=== PATIENT | female | born 1965 | race Two or more races ===

== ENCOUNTER 2020-04-05 15:39 | Emergency (ER) | payer MEDICAID, SELFPAY ==
[2020-04-05 15:55] VITALS: BP 113/54; PULSE 89; RESP 18; TEMP 37; O2SAT 96; BMI 18.6
--- NOTE | 2020-04-05 17:06 | CT_ITS ---
EXAMINATION: CT abdomen pelvis w con CLINICAL INFORMATION: Reason for Exam difusse abdominal pain COMPARISON: No prior CT available for comparison. TECHNIQUE: Multidetector volumetric imaging was performed from the superior aspect of the liver through the pubic symphysis 85 mL Omnipaque 350 injected Sagittal and coronal reformatted images were obtained on the technologist's workstation. This CT examination was performed using dose optimization techniques as appropriate, variously including the following: *Automated exposure control *Adjustment of mA and/or kV according to patient size (this includes techniques or standardized protocols for targeted exams where dose is matched to indication/reason for exam; i.e. extremities or head) *Use of iterative reconstruction technique DLP: 307 mGy-cm FINDINGS: LOWER THORAX: There are linear opacities likely platelike atelectasis at right and left lung base. HEPATOBILIARY: Hypodense area in the liver adjacent to the falciform ligament, the location is common for focal fat deposition. No focal hepatic lesions. No biliary ductal dilatation. GALLBLADDER: Gallbladder unremarkable. SPLEEN: Spleen is normal in size. PANCREAS: No focal mass or ductal dilatation. STOMACH AND GASTROINTESTINAL TRACT: Stomach is grossly unremarkable. There is no bowel distention or thickening. No CT evidence of appendicitis. ADRENALS: No adrenal nodules. KIDNEYS/URETERS: Simple cyst upper pole left kidney measure about 1.2 cm, simple cyst middle pole left kidney measures 1.1 cm. There are no kidney stones or hydronephrosis. Perinephric fat are clear. URINARY BLADDER: Partially decompressed. PELVIC VISCERA: Unremarkable PERITONEUM: No free air or fluid. LYMPH NODES: No lymphadenopathy. VASCULAR:Abdominal aorta normal in size, no aneurysm found. BONES, ABDOMINAL WALL AND SOFT TISSUES: Age-appropriate changes of the spine and skeletal system, no destructive osteolytic or osteosclerotic bone lesion found CT/CT abdomen pelvis w con IMPRESSION: No CT evidence of acute intra-abdominal process to explain patient's pain symptoms. There are 2 simple cysts in the left kidney Bosniak class I. Hypodense area in the liver adjacent to the falciform ligament the location is common for focal fat deposition. Linear opacities at right and left lung base, likely platelike atelectasis.
--- NOTE | 2020-04-05 17:13 | ED_ITS ---
HPI - Abdominal Pain General Chief Complaint: Abdominal Pain Stated Complaint: abd pain Time Seen by Provider: 04/05/20 16:56 Source: patient Mode of arrival: ambulatory Limitations: no limitations History of Present Illness HPI narrative: patient comes emergency room complaining of diffuse abdominal pain that started 1 week ago. Patient also complaining of nausea without vomiting, and diffuse diarrhea. Patient states she has been drinking a magnesium hydroxide solution to help with the pain. patient states the pain is constant, states she has lost 7 lb in 1 week, has p.o. intolerance MD elicited complaint: abdominal pain Related Data Allergies Allergy/AdvReac Type Severity Reaction Status Date / Time tramadol [TRAMADOL] Allergy Unknown NAUSEA & Verified 04/05/20 15:55 VOMITING tramadol Allergy Unknown stomach Uncoded 07/06/19 00:00 upset Review of Systems Review of Systems Constitutional : complaining of 7 lb weight loss, No Fever, No Chills, No Night Sweats, No Fatigue, No Malaise ENT/Mouth : No Hearing loss, No Ear Pain, No Nasal Congestion, No Sinus Pain, No Hoarseness, No sore throat, No Rhinorrhea, No Swallowing Difficulty Eyes: No Eye Pain, No Swelling, No Redness, No Foreign Body, No Discharge, No Vision Changes Cardiovascular : No Chest Pain, No SOB, No Dyspnea on Exertion, No Orthopnea, No Edema, No Palpitations Respiratory : No Cough, No Sputum, No Wheezing, No Smoke Exposure, No Dyspnea Gastrointestinal : patient complaining of nausea with no vomiting, diarrhea, diffuse abdominal pain Genitourinary : no irregular bleeding, No Dysuria, No Urinary Frequency, No Hematuria, No Urinary Incontinence, No Urgency, No Flank Pain, No Urinary Flow Changes, No Hesitancy Musculoskeletal : No joint pain, No Myalgias, No Joint Swelling Skin : No Skin Lesions, No rash Neuro : No Weakness, No Numbness, No Paresthesias, No Loss of Consciousness, No Dizziness, No Headache Psych : No Anxiety/Panic, No Depression, No SI/HI/AH/VH, No Social Issues, Heme/Lymph: No Bruising, No Bleeding,No Lymphadenopathy Endocrine : No Polyuria, No Polydipsia, No Temperature Intolerance Physical Exam Vital Signs: Vital Signs: Last Vital Signs Temp 98.6 F 04/05/20 15:55 Pulse 89 04/05/20 15:55 Resp 16 04/05/20 18:41 BP 113/54 L 04/05/20 15:55 Pulse Ox 96 04/05/20 15:55 Body Mass Index 18.6 Appearance: Alert. Oriented X3. No acute distress. Eyes: Pupils equal, round and reactive to light. ENT: Pharynx normal. Neck: Normal inspection. Neck supple. No lymph nodes noted. No crepitus CVS: Normal heart rate and rhythm. Pulses normal. Normal S1 and S2 Respiratory: No respiratory distress. Breath sounds normal. No Wheezing. No rales Abdomen: Soft , diffuse abdominal tenderness to palpation, seems to be worse in left lower quadrant Skin: Skin warm and dry. Normal skin color. Normal skin turgor. Extremities: No lower extremity edema. No lower extremity edema. No Lacerations. No Rash Neuro: Oriented X 3. No motor deficit. No sensory deficit. Moving all extermities. No slurred speech. Course Course Course Narrative: I discussed the labs and imaging with the patient, patient states that she feels better. Patient likely having a viral illness causing the nausea vomiting diarrhea. Patient asked to discontinue taking magnesium hydroxide which causes diarrhea MDM - Abdominal Pain Lab Data Result diagrams: 04/05/20 17:16 04/05/20 17:16 Labs: Lab Results 04/05/20 04/05/20 Range/Units 17:16 17:16 WBC 6.8 (4.8-10.8) X10*3/uL RBC 3.82 L (4.20-5.50) X10*6/uL Hgb 12.4 (12.0-16.0) g/dl Hct 36.6 L (37-47) % MCV 95.8 (80-98) fL MCH 32.5 (27.0-33.0) pg MCHC 33.9 (31.0-35.0) g/dl RDW 12.8 (11.0-16.0) % Plt Count 324 (160-400) X10*3/uL MPV 9.6 (9.4-12.3) fL Immature Gran % (Auto) 0.1 (0.0-0.4) % Neut % (Auto) 56.8 (45-73) % Lymph % (Auto) 32.7 (20-40) % [place] % (Auto) 7.0 (2-11) % Eos % (Auto) 2.7 (0-4) % Baso % (Auto) 0.7 (0-2) % Lymph # (Auto) 2.2 (1.2-4.9) X10*3/uL Oxford # (Auto) 0.5 (0.1-1.2) X10*3/uL Eos # (Auto) 0.2 (0.0-0.4) X10*3/uL Baso # (Auto) 0.1 (0.0-0.2) X10*3/uL Abs Immat Gran (auto) 0.01 (0.00-0.03) X10*3/uL Absolute Neuts (auto) 3.8 (2.0-8.3) X10*3/uL Absolute Nucleated RBC 0.000 (0.0-0.012) X10*3/uL Nucleated RBC % (auto) 0.0 (0.0-0.2) /100WBC Sodium 140 (135-145) mmol/L Potassium 4.2 (3.3-5.1) mmol/l Chloride 102 (96-108) mmol/L Carbon Dioxide 30 H (22-29) mmol/L Anion Gap 12 (12-20) BUN 15 (9-16) mg/dL Creatinine 0.68 (0.5-1.4) mg/dL Estim Creat Clear Calc 71.9 Estimated GFR > 60 Random Glucose 90 (60-115) mg/dL Calcium 8.9 (8.4-10.2) mg/dL Total Bilirubin 0.3 (0.0-1.0) mg/dL Direct Bilirubin < 0.2 (0.0-0.5) mg/dL AST 19 (5-31) U/L ALT 16 (0-31) U/L Alkaline Phosphatase 77 (39-117) U/L Total Protein 6.6 (6.5-8.0) g/dL Albumin 4.2 (3.5-5.0) g/dL Lipase 24 (8-78) U/L Imaging Data CT scan - abdomen: Radiologist's impression: LOWER THORAX: There are linear opacities likely platelike atelectasis at right and left lung base. HEPATOBILIARY: Hypodense area in the liver adjacent to the falciform ligament, the location is common for focal fat deposition. No focal hepatic lesions. No biliary ductal dilatation. GALLBLADDER: Gallbladder unremarkable. SPLEEN: Spleen is normal in size. PANCREAS: No focal mass or ductal dilatation. STOMACH AND GASTROINTESTINAL TRACT: Stomach is grossly unremarkable. There is no bowel distention or thickening. No CT evidence of appendicitis. ADRENALS: No adrenal nodules. KIDNEYS/URETERS: Simple cyst upper pole left kidney measure about 1.2 cm, simple cyst middle pole left kidney measures 1.1 cm. There are no kidney stones or hydronephrosis. Perinephric fat are clear. URINARY BLADDER: Partially decompressed. PELVIC VISCERA: Unremarkable PERITONEUM: No free air or fluid. LYMPH NODES: No lymphadenopathy. VASCULAR:Abdominal aorta normal in size, no aneurysm found. BONES, ABDOMINAL WALL AND SOFT TISSUES: Age-appropriate changes of the spine and skeletal system, no destructive osteolytic or osteosclerotic bone lesion found CT/CT abdomen pelvis w con IMPRESSION: No CT evidence of acute intra-abdominal process to explain patient's pain symptoms. There are 2 simple cysts in the left kidney Bosniak class I. Hypodense area in the liver adjacent to the falciform ligament the location is common for focal fat deposition. Linear opacities at right and left lung base, likely platelike atelectasis. Discharge Plan Discharge Clinical Impression: Abdominal pain Qualifiers: Abdominal location: generalized Qualified Code(s): R10.84 - Generalized abdominal pain Patient Disposition: Home, Self-Care Instructions: Abdominal Pain (ED) Additional Instructions: please stop taking the [id number] medication that contains magnesium hydroxide as it causes diarrhea. Please follow-up with your primary care physician tomorrow. If you have any worsening or new symptoms, please return to the emergency room or call [address] [place] [address] Past Medical History Medical History (Updated 04/05/20 @ 20:05 by Jaycee Carvalho MD) Abdominal adhesions Fibromyalgia Lupus Migraines Osteoarthritis Surgical History (Updated 04/05/20 @ 17:21 by Jaycee Carvalho MD) H/O: hysterectomy History of appendectomy Social History Social History Alcohol intake: never Smoked in Last 30 Days: No Use of substances other than those prescribed or required for medical reasons: No Advance Directives: No Advance Directives Information Provided: No
[2020-04-05] MEDS: 0.9 % Sodium Chloride 1,000 ML 999 ML IVCONT (17:16)
[2020-04-05 17:19] VITALS: RESP 16
[2020-04-05 17:22] LABS: Basophils Absolute Auto 0.1 X10*3/uL (0.0-0.2); Basophils Percent Auto 0.7 % (0-2); Eosinophils Absolute Auto 0.2 X10*3/uL (0.0-0.4); Eosinophils Percent Auto 2.7 % (0-4); Hematocrit 36.6 % (37-47); Hemoglobin 12.4 g/dl (12.0-16.0); Imm Gran Abs Auto 0.01 X10*3/uL (0.00-0.03); Imm Gran Pct Auto 0.1 % (0.0-0.4); Lymphocytes Absolute Auto 2.2 X10*3/uL (1.2-4.9); Lymphocytes Percent Auto 32.7 % (20-40); MANUAL DIFF FLAG NO; Mean Corpuscular HGB Conc 33.9 g/dl (31.0-35.0); Mean Corpuscular Hemoglobin 32.5 pg (27.0-33.0); Mean Corpuscular Volume 95.8 fL (80-98); Mean Platelet Volume 9.6 fL (9.4-12.3); Monocytes Absolute Auto 0.5 X10*3/uL (0.1-1.2); Neutrophils Absolute Auto 3.8 X10*3/uL (2.0-8.3); Neutrophils Percent Auto 56.8 % (45-73); Platelet Count 324 X10*3/uL (160-400); Red Blood Count 3.82 X10*6/uL (4.20-5.50); Red Cell Distribution Width 12.8 % (11.0-16.0); White Blood Count 6.8 X10*3/uL (4.8-10.8)
[2020-04-05] MEDS: Morphine Sulfate 4 MG/ML CARTRIDGE IVPUSH (17:29)
[2020-04-05] MEDS: ondansetron HCL 4 MG/2 ML VIAL IVPUSH (17:30)
[2020-04-05 17:48] LABS: Alanine Aminotransferase 16 U/L (0-31); Albumin Level 4.2 g/dL (3.5-5.0); Alkaline Phosphatase 77 U/L (39-117); Anion Gap 12 (12-20); Aspartate Amino Transferase 19 U/L (5-31); Bilirubin Direct < 0.2 mg/dL (0.0-0.5); Bilirubin Total 0.3 mg/dL (0.0-1.0); Blood Urea Nitrogen 15 mg/dL (9-16); Calcium 8.9 mg/dL (8.4-10.2); Carbon Dioxide 30 mmol/L (22-29); Chloride 102 mmol/L (96-108); Creatinine Clr Calc Pharmacy 71.9; Estimated Glomerular Filt Rate > 60; Glucose Random 90 mg/dL (60-115); Lipase 24 U/L (8-78); Potassium 4.2 mmol/l (3.3-5.1); Sodium 140 mmol/L (135-145); Total Protein 6.6 g/dL (6.5-8.0)
[2020-04-05 18:41] VITALS: RESP 16
[2020-04-05] MEDS: iohexoL 350 MG/ML 100 ML INFUS..BTL IV (19:14)
[2020-04-05 20:00] VITALS: BP 111/61; PULSE 73; RESP 18; TEMP 36.8; O2SAT 98
--- NOTE | 2020-04-05 20:25 | PC.NURSE ---
dr camp states ok for discharge no urine needed.
== END 2020-04-05 20:25 | disposition home or self-care (01) ==
PROVIDERS: Emergency Provider Emergency Medicine; PCP Internal Medicine
DX: R10.84 Generalized abdominal pain (principal); R11.0 Nausea
CPT/HCPCS: 36415; 74177; 80048; 80076; 83690; 85025; 96361; 96374; 96375; 99284; J2270; J2405; Q9967

== ENCOUNTER → 2020-04-30 11:32 | Outpatient (BNVA) | payer MEDICAID, SELFPAY | PROVIDERS: PCP Internal Medicine; Referring Provider Internal Medicine; Visit Provider Internal Medicine | DX: Z76.89 Persons encountering health services in other specified circumstances (principal) ==

== ENCOUNTER → 2020-06-09 13:26 | Outpatient (BNVA) | payer MEDICAID, SELFPAY | PROVIDERS: PCP Internal Medicine; Visit Provider Physician Assistant ==

== ENCOUNTER 2020-07-14 08:48 | Day surgery (SDC) | payer MEDICAID, SELFPAY ==
[2020-07-09 12:34] VITALS: BMI 19.8
--- NOTE | 2020-07-14 09:12 | HO.ANESPROP2 ---
FORMERLY [facility], [facility] Active Problems Active Problems: All Active Problems (Updated 07/09/20 @ 12:33 by Mary Kay Elizalde) Acid reflux (Acute) Chronic constipation (Acute) Encounter for screening colonoscopy (Acute) Vitamin D deficiency (Acute) Osteoporosis (Acute) Past Medical History Medical History Abdominal adhesions Fibromyalgia Lupus Migraines Osteoarthritis Osteoporosis Vitamin D deficiency Family History Family History Father No problems noted. Mother No problems noted. Surgical History Surgical History H/O elbow surgery History of hysterectomy with oophorectomy History of removal of ovarian cyst Hx of appendectomy Hx of tonsillectomy Social History Social History Alcohol intake: never Smoking Status: Current every day smoker Tobacco Type: Cigarette Packs Per Day: 1 Cigarettes Per Day: 20 Years Smoked: 23 Use of substances other than those prescribed or required for medical reasons: No Advance Directives: No Advance Directives Information Provided: No Advance Directives on File: No Meds Allergies Allergy/AdvReac Type Severity Reaction Status Date / Time tramadol [TRAMADOL] Allergy Unknown NAUSEA & Verified 07/09/20 12:23 VOMITING Home Medications Medication Instructions Recorded Confirmed Last Taken Type acetaminophen 500 mg capsule 500 mg PO Q6H PRN 04/30/20 07/09/20 Unknown History albuterol sulfate 90 mcg/actuation 2 puff INHALATION Q4-6H PRN 04/30/20 07/09/20 Unknown History aerosol inhaler amitriptyline 25 mg tablet 25 mg PO BEDTIME 04/30/20 07/09/20 Unknown History bupropion HCl 150 mg 24 hr tablet, 150 mg PO QAM 04/30/20 07/09/20 Unknown History extended release cholecalciferol (vitamin D3) 50 50 mcg PO DAILY 04/30/20 07/09/20 Unknown History mcg (2,000 unit) capsule docusate sodium 100 mg capsule 100 mg PO BID PRN 04/30/20 06/09/20 Unknown History duloxetine 60 mg capsule,delayed 60 mg PO DAILY 04/30/20 07/09/20 Unknown History release estradiol 1 g VAGINAL DAILY 04/30/20 07/09/20 Unknown History fluticasone propionate 220 1 puff INHALATION BID 04/30/20 07/09/20 Unknown History mcg/actuation HFA aerosol inhaler ibuprofen 800 mg tablet 800 mg PO TID PRN 04/30/20 07/09/20 Unknown History lidocaine 5 % topical patch 1 patch TOPICAL DAILY 04/30/20 06/09/20 Unknown History nicotine 10 mg inhalation cartridge 1 inh INHALATION 6XD PRN ea 04/30/20 06/09/20 Unknown History nystatin 100,000 unit/mL oral 4 ml BUCCAL DAILY ml 04/30/20 06/09/20 Unknown History suspension omeprazole 20 mg tablet,delayed 20 mg PO DAILY 04/30/20 07/14/20 07/14/20 07:40 History release 20 mg ondansetron HCl 4 mg tablet 8 mg PO BID tab 04/30/20 06/09/20 Unknown History sennosides 8.6 mg tablet 17.2 mg PO BEDTIME tab 04/30/20 06/09/20 Unknown History Exam Exam Date and Time: July 14, 2020 0912 Height,Weight and Vital Signs: Height 5 ft 3 in Weight 50.802 kg Airway Mallampati Class: I TM Dist: >3cm Neck ROM: Full Loose/Missing/Broken Teeth: No Heart: RRR Lungs: CTA Assessment and Plan Assessment Anesthesia Assessment: Anesthesia Plan Discussed and Chart Reviewed Final Anesthetic Review NPO: Yes ASA Class: II Final Preanesthetic Review: Meds/Allgs Chart Reviewed, Consent Obtained/Reviewed and Anes Risks/Benef Reviewed Patient Risk: Low Procedure Risk: Intermediate Anesthetic Plan Anesthetic Plan: MAC: Disposition: Standard PACU
--- NOTE | 2020-07-14 09:50 | W.PM.OPN ---
Operative Note Operative Note Date of Service: 07/14/20 Narrative: Pre-op diagnosis: Colon cancer screening, constipation, GERD, intermittent nausea Post-op diagnosis: other (Gastritis, colon polyp, diverticulosis, hemorrhoids) Procedure: FLEXIBLE TRANSORAL UPPER GASTROINTESTINAL ENDOSCOPY WITH BIOPSIES AND COLONOSCOPY TILL CECUM WITH BIOPSIES UPPER ENDOSCOPY Consent: Indications for the procedure and potential complications of bleeding, perforation, reaction to medications and missed diagnosis were discussed with the patient and informed consent was obtained. Instrument: Olympus GIF H 190 mid size upper endoscope Monitoring: Vital signs and clinical assessment, continuous EKG monitoring, Pulse oximetry, Carbon Dioxide monitoring and blood pressure monitoring were done throughout the procedure. Procedure: The patient was placed in the left lateral decubitis position and pre-procedure medications were administered and a bite block was placed. The endoscope was inserted into the mouth and advanced under direct vision to the third part of duodenum. A careful inspection was made as the upper endoscope was withdrawn including a retroflexed examination of the proximal stomach; Findings and interventions are described below. Findings: Larynx: Normal Esophagus: GE junction at 35 cms. Focal esophagitis at GE junction. Stomach: Mild gastric erythema. Biopsies were obtained. Grade 2 flap valve on retroflexed examination of the cardia. Duodenum: Normal bulb and descending duodenum Intervention: Biopsies as noted above COLONOSCOPY PROCEDURE NOTE Consent: Indications for the procedure and potential complications of bleeding, perforation, reaction to medications and missed diagnosis were discussed with the patient and informed consent was obtained. Instrument: Olympus PCF H 190 L variable stiffness pediatric colonoscope Monitoring: Vital signs and clinical assessment, intermittent blood pressure monitoring, continuous EKG monitoring, Pulse oximetry and Carbon Dioxide monitoring were done throughout the procedure. Colon withdrawl time was 15 minutes. Procedure: The patient was placed in the left lateral decubitis position and pre-procedure medications were administered. After a digital rectal examination of the ano-rectum, the video colonoscope was inserted into the rectum and advanced through the colon to the cecum. The colonoscope was slowly withdrawn in a retrograde panoramic fashion and the colon mucosa was carefully examined including a retroflexed view of the rectum. Findings and interventions are described below. Procedure Difficulty: Colon was long, redundant and tortuous and there was loop formation, no maneuvers were required. Findings: Terminal Ileum: Not evaluated Cecum: Friable mucosa in the cecum and right colon - random biopsies were obtained Ascending Colon: Friable mucosa in the cecum and right colon - random biopsies were obtained Transverse Colon: Normal Descending Colon: Normal Sigmoid Colon: A 3-4 mm diminutive appearing polyp removed with a cold biopsy Rectum: Normal Ano-rectum: Moderate internal hemorrhoids Colon preparation: Fair despite copious irrigation Impression and Post Procedure Diagnosis: Endoscopy Findings: ESOPHAGUS: Focxal esophagitis at GE junction. STOMACH: Gastritis Colonoscopy Findings: One small diminutive appearing polyp removed Random biopsies were obtained from the right colon. Moderate hemorrhoids on retroflexed exam. Plan: Await pathology results Patient has an appointment on 08/04/20 in the GI Clinic with STEPHANIE Ledesma. Repeat Colonoscopy in 5 years if polyp is adenomatous and due to fair prep. Above findings were reviewed with the patient and colon polyps and Gastritis handouts were given in the discharge area Surgeon: Courtney Stanley MD Anesthesia: MAC (Dr Leavitt) Estimated blood loss (mL): 0 Pathology: other (A. GASTRIC ANTRUM R/O H. PYLORI B. GASTRIC BODY BXS, R/O GASTRITIS C. RANDOM RIGHT COLON BXS D. SIGMOID COLON POLYP) Condition: stable Disposition: PACU
--- NOTE | 2020-07-14 09:50 | MHC.SHP ---
Pre-Procedural Eval Section B Chief Complaint: GERD, Screening Details of Present Illness: Colon cancer screening, chronic constipation, GERD Relevant Family History (Specify if Yes): No Relevant Social History: Tobacco Use Present Medications: see Short Stay Collaborative assessment Medical History: Significant History (Abdominal adhesions Fibromyalgia Lupus Migraines Osteoarthritis Osteoporosis Vitamin D deficiency) History of Previous Operations: Relevant previous surgery/procedure and date(s) (H/O elbow surgery History of hysterectomy with oophorectomy History of removal of ovarian cyst Hx of appendectomy Hx of tonsillectomy) Allergies: Allergies Allergy/AdvReac Type Severity Reaction Status Date / Time tramadol [TRAMADOL] Allergy Unknown NAUSEA & Verified 07/09/20 12:23 VOMITING Review of Systems Sugical H&P ROS: Negative: Constitution, Cardiovascular and Respiratory and Yes, Specify: Gastrointestinal (GERD) Exam Surgical H&P Exam: Normal: Heart, Normal: Lungs, Normal: Extremities and Normal: Abdomen Plan Diagnosis/Plan: Change (add EGD for evaluation of GERD) I have reviewed the history and physical and performed a pertinent physical examination on my patient. No changes have occurred unless specified.
[2020-07-14] MEDS: Lactated Ringers 1,000 ML 50 ML IV (10:03)
[2020-07-14 11:00] VITALS: BP 110/68; PULSE 70; RESP 16; TEMP 36.4; O2SAT 100
[2020-07-14 11:15] VITALS: BP 127/63; PULSE 80; RESP 18; O2SAT 99
--- NOTE | 2020-07-14 11:29 | PC.NURSE ---
1120ASST OOB CH STEADY IV DCD DRESSED SELF AT BS CALL [facility] IN REACH ONLY CO [facility]
--- NOTE | 2020-07-16 08:00 | PM.GICN ---
History of Present Illness Data of Consult Service Date: 07/15/20 Requesting physician: Pacheco Knox Primary Care Provider: 55 YF presented to [facility] [place] [facility] earlier today with abdominal pain 3 hrs after an uneventful EGD and Colonoscopy on 07/14/20. 55-year-old female who presents emergency department for evaluation abdominal pain status post colonoscopy yesterday. The patient states that she got home at around noon time after colonoscopy and slept until 2:00 p.m.. When she woke up at 2:00 p.m. she had sudden onset of right lower quadrant, sharp, constant pain. She states she felt like there was a ball in her right lower quadrant area. She states the pain became progressively worse and then diffuse. The pain was 10/10 at its worse and is 10/10 here in the emergency department. She had associated nausea with no vomiting. She states that she had a very small amount of diarrhea last night but did not notice any blood in her bowel movement. She states that she had shaking chills throughout the night but did not have a fever. She is also complaining of right-sided chest pain which is worse with movement and with breathing. She denied cough, shortness of breath or dyspnea on exertion . Patient reports improvement in abdominal pain after she recieved IV pain medications in the ED. Labs showed mild leucocytosis with a left shift. 07/14/20 EGD and Colonoscopy showed: ESOPHAGUS: Focxal esophagitis at GE junction. STOMACH: Gastritis Colonoscopy Findings: One small hyperplastic polyp removed Random biopsies were obtained from the right colon. Moderate hemorrhoids on retroflexed exam. Plan: Patient has an appointment on 08/04/20 in the GI Clinic with STEPHANIE Ledesma. Repeat Colonoscopy interval based on path results - in 10 years if polyps are hyperplastic. Above findings were reviewed with the patient and colon polyps and Gastritis handouts were given in the discharge area 07/15/[address] SCAN SHOWED: 1. Mild to moderate abnormal mural thickening in the cecum and proximal aspect of the ascending colon as detailed above. This is nonspecific. Infectious/inflammatory colitis, acute injury secondary to biopsy or malignancy cannot be excluded. Definitive perforation is not seen. Correlate with patient history. If symptoms persist or worsen, short-term repeat CT scan of the abdomen and pelvis is recommended to assess for change. 2. Asymmetric opacities medially in the right upper lobe are nonspecific. The overall appearance suggests scarring/atelectasis. No prior chest CT scan is available for comparison. A repeat chest CT scan is recommended in 3 months to assess for change. 3. Incidental findings in the abdomen and pelvis have not significantly changed. Review of Systems Constitutional: Constitutional: Reports difficulty sleeping, Denies fever(s), Reports headache(s) and Denies weight loss Eyes: Eyes: Denies eye discharge, Reports dry eyes and Denies irritation ENT: Reports Normal hearing present, Denies dysphagia, Denies dizziness, Reports dry mouth and Reports headache(s) Cardiovascular: Cardiovascular: Reports chest pain, Denies leg edema, Reports dyspnea ( at rest), Reports dyspnea on exertion and Reports other ( palpitations) Respiratory: Respiratory: Denies cough, Reports dyspnea ( at rest) and Reports dyspnea on exertion Gastrointestinal: Gastrointestinal: Reports abdominal pain, Denies change in bowel habits, Denies dysphagia and Denies heartburn Genitourinary: Genitourinary: Denies difficulty voiding, Denies dysuria and Reports other ( urinary frequency) Musculoskeletal: Musculoskeletal: Denies back pain and Reports arthralgias ( arthritis) Integumentary/Breasts: Skin/Breast: Denies pruritus, Reports rash, Denies jaundice and Reports other (Alopecia, photosensitivity) Neurologic: Reports Normal hearing present, Denies Abnormal speech present, Denies dizziness, Reports headache(s) and Denies seizure-like activity Psychiatric: Psychiatric: Reports anxiety, Reports depression and Denies panic attacks Endocrine: Endocrine: Denies cold intolerance, Denies flushing and Denies heat intolerance PMFSH Past Medical History Medical History Abdominal adhesions Fibromyalgia Lupus Migraines Osteoarthritis Osteoporosis Vitamin D deficiency Family History Family History Father No problems noted. Mother No problems noted. Surgical History Surgical History H/O elbow surgery History of hysterectomy with oophorectomy History of removal of ovarian cyst Hx of appendectomy Hx of tonsillectomy Social History Social History Household Members: Family Do you presently have visiting nurse or other home services: No Alcohol intake: never Smoking Status: Current every day smoker Tobacco Type: Cigarette Packs Per Day: 1 Cigarettes Per Day: 15 Years Smoked: 23 Use of substances other than those prescribed or required for medical reasons: No Have you been hit, kicked, punched, or otherwise hurt by someone within the past year? If so, by whom?: No Do you feel safe in your current relationship?: Yes Is there a partner from a previous relationship who is making you feel unsafe now?: No Are you made to feel afraid or neglected: No Advance Directives: No Advance Directives Information Provided: No Do you have thoughts of harming others: None Do you have a plan to hurt others: No Plan Recently lost weight without trying: Yes Meds Allergies Allergy/AdvReac Type Severity Reaction Status Date / Time tramadol [TRAMADOL] Allergy Unknown NAUSEA & Verified 07/09/20 12:23 VOMITING Home Medications Medication Instructions Recorded Confirmed Last Taken Type acetaminophen 500 mg capsule 500 mg PO Q6H PRN 04/30/20 07/15/20 Unknown History albuterol sulfate 90 mcg/actuation 2 puff INHALATION Q4-6H PRN 04/30/20 07/15/20 Unknown History aerosol inhaler amitriptyline 25 mg tablet 25 mg PO BEDTIME 04/30/20 07/15/20 Unknown History bupropion HCl 150 mg 24 hr tablet, 150 mg PO DAILY 04/30/20 07/15/20 Unknown History extended release lidocaine 5 % topical patch 1 patch TOPICAL DAILY 04/30/20 07/15/20 Unknown History omeprazole 20 mg tablet,delayed 20 mg PO DAILY 04/30/20 07/15/20 07/14/20 07:40 History release 20 mg ondansetron HCl 4 mg tablet 4 mg PO BID tab 04/30/20 07/15/20 Unknown History sennosides 8.6 mg tablet 17.2 mg PO BEDTIME PRN tab 04/30/20 07/15/20 Unknown History ibuprofen 1 tab PO BID 07/15/20 07/15/20 Unknown History Physical Exam Vital Signs: Vital Signs: Last Vital Signs Temp 97.5 F 07/14/20 11:00 Pulse 80 07/14/20 11:15 Resp 18 07/14/20 11:15 BP 127/63 07/14/20 11:15 Pulse Ox 99 07/14/20 11:15 Body Mass Index 19.8 Const: General: no acute distress, in distress (due to abdominal pain), anxious and ill appearing Nutritional Appearance: average body habitus Orientation/consciousness: patient oriented x3 Limitations: no limitations HENMT: Head: Yes normal to inspection Ears: hearing grossly normal bilaterally Mouth: Normal oral and palatal mucosa present Eyes: Sclerae: sclerae normal Pupils: Equal, round and reactive pupils present Neck: Neck: Yes normal visual inspection Chest: Chest palpation & inspection: normal inspection of the chest Resp: Effort & Inspection: normal respiratory effort Auscultation: clear to auscultation bilaterally Cardio: Palpation: normal PMI Rate: regular rate Rhythm: regular rhythm Heart sounds: S1 normal heart sound present, S2 normal heart sound present and no murmurs GI: Palpation (GI): Soft to palpation, Tenderness to palpation present (GI) in the RLQ and suprapubicly and No hepatosplenomegaly present Auscultation: normal bowel sounds Rectal Exam - Female: deferred Skin: General skin exam: no rashes or lesions noted Neuro: General: patient oriented x3, gait normal and moves all extremities Cranial nerves: Yes Equal, round and reactive pupils present and Yes Normal hearing present Speech: No Abnormal speech present Psych: Appearance: grossly normal Mental Status: mental status grossly normal Results Labs Labs: Laboratory Tests 07/15/20 10:20 WBC 13.8 H Hgb 12.7 Hct 35.6 L Plt Count [address] scan - abdomen: Radiologist's impression: 1. Mild to moderate abnormal mural thickening in the cecum and proximal aspect of the ascending colon as detailed above. This is nonspecific. Infectious/inflammatory colitis, acute injury secondary to biopsy or malignancy cannot be excluded. Definitive perforation is not seen. Correlate with patient history. If symptoms persist or worsen, short-term repeat CT scan of the abdomen and pelvis is recommended to assess for change. 2. Asymmetric opacities medially in the right upper lobe are nonspecific. The overall appearance suggests scarring/atelectasis. No prior chest CT scan is available for comparison. A repeat chest CT scan is recommended in 3 months to assess for change. 3. Incidental findings in the abdomen and pelvis have not significantly changed. Assessment and Plan (1) Abdominal pain: Qualifiers: Abdominal location: right lower quadrant Qualified Code(s): R10.31 - Right lower quadrant pain Status: Acute (2) Colonic hematoma: Qualifiers: Encounter type: initial encounter Qualified Code(s): S36.529A - Contusion of unspecified part of colon, initial encounter Status: Acute 55 year old French speaking female with RLQ abdominal pain 3 hrs after EGD and colonoscopy with biopsies. Colonoscopy showed friable appearing mucosa and random biopsies were obtained. Wall thickening in cecum and ascending colon on abd CT scan likely due to submucosal hematoma at biopsy site versus barotrauma from air insufflation during colonoscopy. RECOMMENDATIONS: 1. IV fluids and IV pain medications for pain control. 2. Empiric IV antibiotics until leucocytosis resolves 3. Clear liquid diet and advance diet as tolerated.
== END 2020-07-14 11:59 | disposition home or self-care (01) ==
PROVIDERS: Visit Provider Internal Medicine Gastroenterology
PROC: (CPT 45380; principal; 2020-07-14 10:00)
DX: Z12.11 Encounter for screening for malignant neoplasm of colon (principal); K62.1 Rectal polyp; K57.30 Diverticulosis of large intestine without perforation or abscess without bleeding; K64.8 Other hemorrhoids; K59.00 Constipation, unspecified; K21.9 Gastro-esophageal reflux disease without esophagitis; K29.50 Unspecified chronic gastritis without bleeding; B96.81 Helicobacter pylori [H. pylori] as the cause of diseases classified elsewhere
CPT/HCPCS: 45380; 43239; 88305; 88342

== ENCOUNTER 2020-07-15 08:33 | Inpatient (IN) | payer MEDICAID, SELFPAY ==
--- NOTE | ~2020-07-15 | CT_ITS ---
EXAMINATION: CT CHEST, ABDOMEN AND PELVIS WITH CONTRAST CLINICAL INFORMATION: Chest and abdominal pain status post colonoscopy yesterday. COMPARISON: CT scan of the abdomen and pelvis dated 01/17/2019 and 04/05/2020. TECHNIQUE: Multidetector volumetric imaging was performed of the chest, abdomen and pelvis before and after the IV administration of 85 mL of Omnipaque 350 intravenous contrast. Sagittal and coronal reformatted images were obtained on the technologist's workstation. This CT examination was performed using dose optimization techniques as appropriate, variously including the following: *Automated exposure control *Adjustment of mA and/or kV according to patient size (this includes techniques or standardized protocols for targeted exams where dose is matched to indication/reason for exam; i.e. extremities or head) DLP: 506 mGy-cm FINDINGS: CHEST: LUNGS/PLEURA/AIRWAYS: Mild motion artifact limits evaluation, especially in the upper lung martino. Asymmetric irregular opacities are seen posteromedially in the right upper lobe (image 136, series 10). Adjacent fissural lymph nodes are seen laterally in the minor fissure both measuring 0.5 cm (images 286 and 288, series 10). Mild biapical scarring and thickening is seen. Linear atelectasis or scarring is seen at the lung bases is well. No pleural effusions. The airways are patent. MEDIASTINUM: The thyroid gland is unremarkable. The thoracic aorta is unremarkable. No significant coronary artery calcifications. No significant pericardial effusion. CHEST LYMPH NODES: No lymphadenopathy. SOFT TISSUES: Unremarkable. ABDOMEN/PELVIS: LIVER, GALLBLADDER, AND BILIARY TREE: Unremarkable. PANCREAS: Unremarkable. SPLEEN: Unremarkable. ADRENAL GLANDS: Unremarkable. KIDNEYS AND URETERS: Right kidney mild right pelviectasis without obstructing abnormality or change. Small left renal cysts demonstrate benign features without significant change. The ureters are unremarkable. BLADDER: Unremarkable. GASTROINTESTINAL TRACT: The stomach and small bowel unremarkable. Abnormal mural thickening is seen in the cecum most pronounced at the level of the ileocecal valve extending superiorly to the descending colon. Mural thickening measures up to 1.4 cm medially (image 32, series 16). Again, the appendix is not well visualized. Mild pericolonic infiltrative changes are seen. No significant abnormality seen distally in the ascending colon as well as the remainder of the colon and rectum. No definitive intraperitoneal air is seen. LYMPH NODES: No lymphadenopathy. VASCULAR: Unremarkable. PELVIC VISCERA: Status post hysterectomy. No adnexal abnormality. MUSCULOSKELETAL: Unremarkable. SOFT TISSUES: Unremarkable. CT/CT abdomen pelvis w con IMPRESSION: 1. Mild to moderate abnormal mural thickening in the cecum and proximal aspect of the ascending colon as detailed above. This is nonspecific. Infectious/inflammatory colitis, acute injury secondary to biopsy or malignancy cannot be excluded. Definitive perforation is not seen. Correlate with patient history. If symptoms persist or worsen, short-term repeat CT scan of the abdomen and pelvis is recommended to assess for change. 2. Asymmetric opacities medially in the right upper lobe are nonspecific. The overall appearance suggests scarring/atelectasis. No prior chest CT scan is available for comparison. A repeat chest CT scan is recommended in 3 months to assess for change. 3. Incidental findings in the abdomen and pelvis have not significantly changed.
[2020-07-15 09:10] VITALS: BP 105/75; PULSE 85; RESP 20; TEMP 37.6; O2SAT 100; BMI 19.3
--- NOTE | 2020-07-15 09:58 | ECG_ITS ---
Test Reason : ABD PAIN Blood Pressure : / mmHG Vent. Rate : 082 BPM Atrial Rate : 082 BPM P-R Int : 152 ms QRS Dur : 092 ms QT Int : 368 ms P-R-T Axes : 045 094 070 degrees QTc Int : 429 ms Normal sinus rhythm Rightward axis Borderline ECG When compared with ECG of 29-DEC-2019 18:36, No significant change was found Referred By: Pacheco Knox Electronically Signed By:Pedro Cabrera
[2020-07-15] MEDS: 0.9 % Sodium Chloride 1,000 ML 999 ML IV (10:12)
[2020-07-15] MEDS: ondansetron HCL 4 MG/2 ML VIAL IVPUSH (10:13)
[2020-07-15] MEDS: HYDROmorphone HCl 1 MG/ML SYRINGE IVPUSH ×2 (10:13→11:48)
[2020-07-15 10:28] LABS: MANUAL DIFF FLAG NO
[2020-07-15 10:30] LABS: Basophils Percent Auto 0.2 % (0-2); Eosinophils Percent Auto 0.1 % (0-4); Hematocrit 35.6 % (37-47); Hemoglobin 12.7 g/dl (12.0-16.0); Imm Gran Abs Auto 0.05 X10*3/uL (0.00-0.03); Imm Gran Pct Auto 0.4 % (0.0-0.4); Lymphocytes Absolute Auto 1.2 X10*3/uL (1.2-4.9); Lymphocytes Percent Auto 8.6 % (20-40); Mean Corpuscular HGB Conc 35.7 g/dl (31.0-35.0); Mean Corpuscular Hemoglobin 32.7 pg (27.0-33.0); Mean Corpuscular Volume 91.8 fL (80-98); Monocytes Absolute Auto 0.7 X10*3/uL (0.1-1.2); Monocytes Percent Auto 5.2 % (2-11); Neutrophils Absolute Auto 11.8 X10*3/uL (2.0-8.3); Neutrophils Percent Auto 85.5 % (45-73); Platelet Count 237 X10*3/uL (160-400); Red Blood Count 3.88 X10*6/uL (4.20-5.50); Red Cell Distribution Width 12.2 % (11.0-16.0); White Blood Count 13.8 X10*3/uL (4.8-10.8)
[2020-07-15 10:45] LABS: COVID-19 Test Negative (Negative)
--- NOTE | 2020-07-15 10:54 | PC.NURSE ---
pt reports no improvement in her pain 02/15, pt in ct at this time
[2020-07-15 10:56] LABS: Lactic Acid 0.8 mmol/L (0.5-2.0)
[2020-07-15 11:02] LABS: Lipase 11 U/L (8-78)
[2020-07-15 11:05] LABS: Alanine Aminotransferase 17 U/L (0-31); Albumin Level 4.1 g/dL (3.5-5.0); Alkaline Phosphatase 72 U/L (39-117); Anion Gap 12 (12-20); Aspartate Amino Transferase 21 U/L (5-31); Bilirubin Total 0.7 mg/dL (0.0-1.0); Blood Urea Nitrogen 8 mg/dL (9-16); Calcium 8.9 mg/dL (8.4-10.2); Carbon Dioxide 25 mmol/L (22-29); Chloride 106 mmol/L (96-108); Creatinine Clr Calc Pharmacy 76.9; Estimated Glomerular Filt Rate > 60; Glucose Random 118 mg/dL (60-115); Potassium 3.2 mmol/L (3.3-5.1); Sodium 140 mmol/L (135-145); Total Protein 6.5 g/dL (6.5-8.0); Troponin-I High Sensitivity < 3.5 ng/L (<3.5-17.0)
[2020-07-15 11:14] VITALS: BP 110/56; PULSE 81; RESP 16; TEMP 36.9; O2SAT 100
[2020-07-15] MEDS: iohexoL 350 MG/ML 100 ML INFUS..BTL IV (11:30)
--- NOTE | 2020-07-15 13:20 | ED_ITS ---
HPI - General Adult General Chief complaint: Abdominal Pain Stated complaint: RLQ PAIN S/P PROCEDURE T-1 Time Seen by Provider: 07/15/20 08:48 Source: patient History of Present Illness HPI narrative: 55-year-old female who presents emergency department for evaluat ion abdominal pain status post colonoscopy yesterday. The patient states that she got home at around noon time after colonoscopy and slept until 2:00 p.m.. When she woke up at 2:00 p.m. she had sudden onset of right lower quadrant, sharp, constant pain. She states she felt like there was a ball in her right lower quadrant area. She states the pain became progressively worse and then diffuse. The pain was 10/10 at its worse and is 10/10 here in the emergency department. She had associated nausea with no vomiting. She states that she had a very small amount of diarrhea last night but did not notice any blood in her bowel movement. She states that she had shaking chills throughout the night but did not have a fever. She is also complaining of right-sided chest pain which is worse with movement and with breathing. She denied cough, shortness of breath or dyspnea on exertion. In reviewing the patient's endoscopy from yesterday, she had mild gastritis and esophagitis. There was a biopsy done of the stomach. The patient's colonoscopy revealed friable mucosa in the cecum and right colon with a sigmoid polyp which was biopsied. Related Data Home Medications Medication Instructions Recorded Confirmed acetaminophen 500 mg capsule 500 mg PO Q6H PRN 04/30/20 07/09/20 albuterol sulfate 90 mcg/actuation 2 puff INHALATION Q4-6H PRN 04/30/20 07/09/20 aerosol inhaler amitriptyline 25 mg tablet 25 mg PO BEDTIME 04/30/20 07/09/20 bupropion HCl 150 mg 24 hr tablet, 150 mg PO QAM 04/30/20 07/09/20 extended release cholecalciferol (vitamin D3) 50 50 mcg PO DAILY 04/30/20 07/09/20 mcg (2,000 unit) capsule docusate sodium 100 mg capsule 100 mg PO BID PRN 04/30/20 06/09/20 duloxetine 60 mg capsule,delayed 60 mg PO DAILY 04/30/20 07/09/20 release estradiol 1 g VAGINAL DAILY 04/30/20 07/09/20 fluticasone propionate 220 1 puff INHALATION BID 04/30/20 07/09/20 mcg/actuation HFA aerosol inhaler ibuprofen 800 mg tablet 800 mg PO TID PRN 04/30/20 07/09/20 lidocaine 5 % topical patch 1 patch TOPICAL DAILY 04/30/20 06/09/20 nicotine 10 mg inhalation cartridge 1 inh INHALATION 6XD PRN ea 04/30/20 06/09/20 nystatin 100,000 unit/mL oral 4 ml BUCCAL DAILY ml 04/30/20 06/09/20 suspension omeprazole 20 mg tablet,delayed 20 mg PO DAILY 04/30/20 07/14/20 release ondansetron HCl 4 mg tablet 8 mg PO BID tab 04/30/20 06/09/20 sennosides 8.6 mg tablet 17.2 mg PO BEDTIME tab 04/30/20 06/09/20 Previous Rx's Medication Instructions Recorded docusate sodium 100 mg capsule 200 mg PO BEDTIME #60 cap 06/09/20 polyethylene glycol 3350 17 gram 17 g PO DAILY #30 ea 06/09/20 oral powder packet Allergies Allergy/AdvReac Type Severity Reaction Status Date / Time tramadol [TRAMADOL] Allergy Unknown NAUSEA & Verified 07/09/20 12:23 VOMITING Review of Systems Review of Systems: Yes all other systems are reviewed and are negative Neurologic: Reports Abnormal speech present [facility] Past Medical History Medical History Abdominal adhesions Fibromyalgia Lupus Migraines Osteoarthritis Osteoporosis Vitamin D deficiency Surgical History H/O elbow surgery History of hysterectomy with oophorectomy History of removal of ovarian cyst Hx of appendectomy Hx of tonsillectomy Family History Family History Father No problems noted. Mother No problems noted. Social History Social History Alcohol intake: never Smoking Status: Current every day smoker Tobacco Type: Cigarette Packs Per Day: 1 Cigarettes Per Day: 20 Years Smoked: 23 Use of substances other than those prescribed or required for medical reasons: No Advance Directives: No Advance Directives Information Provided: No Physical Exam Vital Signs: Vital Signs: Last Vital Signs Temp 98.5 F 07/15/20 11:14 Pulse 81 07/15/20 11:14 Resp 16 07/15/20 11:14 BP 110/56 L 07/15/20 11:14 Pulse Ox 100 07/15/20 11:14 Body Mass Index 19.3 Const: General: cooperative and in distress severe (Patient appears to be in distress secondary to her abdominal pain) Orientation/consciousness: oriented to person and oriented to place Limitations: no limitations HENMT: Head: Yes normal to inspection, Yes normocephalic and Yes atraumatic Ears: external ears normal General nose exam: Normal external nose present Face and sinus: Yes normal facial exam Mouth: Normal oral and palatal mucosa present Throat: Yes posterior oropharynx normal Eyes: Periorbital: periorbital findings normal Eyelids: Yes eyelids normal Conjunctivae: conjunctivae normal Sclerae: sclerae normal Corneas: corneas normal Pupils: Equal, round and reactive pupils present Direct Ophthalmoscopy: normal light reflex Neck: Neck: Yes full ROM, Yes no lymphadenopathy, Yes no meningeal signs, Yes trachea midline and Yes supple Chest: Chest palpation & inspection: normal inspection of the chest and normal palpation of entire chest wall Resp: Effort & Inspection: normal respiratory effort and able to speak in complete sentences Auscultation: clear to auscultation bilaterally Cardio: Rate: regular rate Rhythm: regular rhythm Heart sounds: S1 no rmal heart sound present, S2 normal heart sound present and no murmurs GI: Inspection: Yes normal to inspection Palpation (GI): Soft to palpation, Tenderness to palpation present (GI) (Patient has diffuse mild tenderness) in the RLQ (Severe right lower quadrant tenderness), Guarding due to palpation present (GI) in the RUQ, not rigid and No hepatosplenomegaly present : General: Yes no CVA tenderness Back/Spine/Pelvis: Back: no CVA tenderness Cervical Spine: normal cervical lordosis Thoracic/Lumbar Spine: thoracic and lumbar spine normal to inspection Skin: Lesions: no lesions Rashes: no rashes Wounds: no wounds Neuro: General: oriented to person, oriented to place and no meningeal signs Cranial nerves: Yes CN's II-XII intact bilaterally and Yes Equal, round and reactive pupils present Cognition (Neuro): normal cognition Speech: Abnormal speech present Motor exam (neuro): 5/5 motor strength present throughout Extrem: General: Yes normal to inspection and Yes full ROM Psych: Appearance: well kempt Mental Status: mental status grossly normal Speech and movement: Normal speech and movement present Affect: normal affect Attitude: cooperative Thought process: Normal thought process pre sent Thought content: Normal thought content present Course Course Course Narrative: 55-year-old female who presents emergency department for evaluation of chest pain and abdominal pain 1 day after having a colonoscopy. The patient did appear to be in significant distress secondary her pain, she had diffuse abdominal pain with significant pain in her right lower quadrant with voluntary guarding. I ordered a CBC, CMP,, lactic acid and COVID-19 test on the patient. Patient was ordered to get Dilaudid 1 mg IV for her pain, Zofran 4 mg IV for nausea and normal saline x1 L. 13 15: the patient's laboratory evaluation [place] [address]. The patient was slightly anemic with an H&H of 12.7 and 35.6, this is unchanged from a value from 04/05/2020. Patient's comprehensive metabolic panel revealed a slightly low potassium 3.2 and an elevated glucose of 118, otherwise was unremarkable. Lactic acid was not elevated. Troponin was below detectable limits. CT scan of the chest, abdomen pelvis with IV contrast Revealed moderate abnormal mural thickening in the cecum and proximal aspect of the ascending colon with no obvious perforation. The CT scan of the chest revealed no obvious injury from the endoscopy, patient does have some incidental asymmetric opacities in the right upper lobe which are nonspecific and the radiologist recommended repeat CT scan. 1315: I did discuss the patient's presentation with the GI, Dr. Stanley who did do the patient's endoscopy. She was concerned that the patient may have a hematoma since the colonic mucosa was very friable when she was doing the colonoscopy. She is also concerned that there may be an infectious process. She recommended that the patient receive Zosyn 3.375 mg IV and be admitted for further pain management and to follow the patient's H&H. I will discuss the patient's presentation with the covering hospitalist. 1347: I did discuss the patient's presentation with the covering hospitalist, Dr. Israel the patient will be admitted for further treatment. Medical Decision Making Lab Data Result diagrams: 07/15/20 10:20 07/15/20 10:20 Labs: Lab Results 07/15/20 07/15/20 07/15/20 Range/Units 10:20 10:20 10:20 WBC 13.8 H (4.8-10.8) X10*3/uL RBC 3.88 L (4.20-5.50) X10*6/uL Hgb 12.7 (12.0-16.0) g/dl Hct 35.6 L (37-47) % MCV 91.8 (80-98) fL MCH 32.7 (27.0-33.0) pg MCHC 35.7 H (31.0-35.0) g/dl RDW 12.2 (11.0-16.0) % Plt Count 237 D (160-400) X10*3/uL MPV 10.0 (9.4-12.3) fL Immature Gran % (Auto) 0.4 (0.0-0.4) % Neut % (Auto) 85.5 H (45-73) % Lymph % (Auto) 8.6 L (20-40) % Josephine % (Auto) 5.2 (2-11) % Eos % (Auto) 0.1 (0-4) % Baso % (Auto) 0.2 (0-2) % Lymph # (Auto) 1.2 (1.2-4.9) X10*3/uL Josephine # (Auto) 0.7 (0.1-1.2) X10*3/uL Eos # (Auto) 0.0 (0.0-0.4) X10*3/uL Baso # (Auto) 0.0 (0.0-0.2) X10*3/uL Abs Immat Gran (auto) 0.05 H (0.00-0.03) X10*3/uL Absolute Neuts (auto) 11.8 H (2.0-8.3) X10*3/uL Absolute Nucleated RBC 0.000 (0.0-0.012) X10*3/uL Nucleated RBC % (auto) 0.0 (0.0-0.2) /100WBC Sodium 140 (135-145) mmol/L Potassium 3.2 L (3.3-5.1) mmol/L Chloride 106 (96-108) mmol/L Carbon Dioxide 25 (22-29) mmol/L Anion Gap 12 (12-20) BUN 8 L (9-16) mg/dL Creatinine 0.66 (0.5-1.4) mg/dL Estim Creat Clear Calc 76.9 Estimated GFR > 60 Random Glucose 118 H (60-115) mg/dL Lactic Acid 0.8 (0.5-2.0) mmol/L Calcium 8.9 (8.4-10.2) mg/dL Total Bilirubin 0.7 (0.0-1.0) mg/dL AST 21 (5-31) U/L ALT 17 (0-31) U/L Alkaline Phosphatase 72 (39-117) U/L Troponin I High Sens (<3.5-17.0) ng/L Total Protein 6.5 (6.5-8.0) g/dL Albumin 4.1 (3.5-5.0) g/dL Lipase (8-78) U/L COVID-19 ([facility]) (Negative) COVID-19 Clin Com 07/15/20 07/15/20 07/15/20 Range/Units 10:20 10:20 10:23 WBC (4.8-10.8) X10*3/uL RBC (4.20-5.50) X10*6/uL Hgb (12.0-16.0) g/dl Hct (37-47) % MCV (80-98) fL MCH (27.0-33.0) pg MCHC (31.0-35.0) g/dl RDW (11.0-16.0) % Plt Count (160-400) X10*3/uL MPV (9.4-12.3) fL Immature Gran % (Auto) (0.0-0.4) % Neut % (Auto) (45-73) % Lymph % (Auto) (20-40) % Josephine % (Auto) (2-11) % Eos % (Auto) (0-4) % Baso % (Auto) (0-2) % Lymph # (Auto) (1.2-4.9) X10*3/uL Josephine # (Auto) (0.1-1.2) X10*3/uL Eos # (Auto) (0.0-0.4) X10*3/uL Baso # (Auto) (0.0-0.2) X10*3/uL Abs Immat Gran (auto) (0.00-0.03) X10*3/uL Absolute Neuts (auto) (2.0-8.3) X10*3/uL Absolute Nucleated RBC (0.0-0.012) X10*3/uL Nucleated RBC % (auto) (0.0-0.2) /100WBC Sodium (135-145) mmol/L Potassium (3.3-5.1) mmol/L Chloride (96-108) mmol/L Carbon Dioxide (22-29) mmol/L Anion Gap (12-20) BUN (9-16) mg/dL Creatinine (0.5-1.4) mg/dL Estim Creat Clear Calc Estimated GFR Random Glucose (60-115) mg/dL Lactic Acid (0.5-2.0) mmol/L Calcium (8.4-10.2) mg/dL Total Bilirubin (0.0-1.0) mg/dL AST (5-31) U/L ALT (0-31) U/L Alkaline Phosphatase (39-117) U/L Troponin I High Sens < 3.5 (<3.5-17.0) ng/L Total Protein (6.5-8.0) g/dL Albumin (3.5-5.0) g/dL Lipase 11 (8-78) U/L COVID-19 ([facility]) Negative (Negative) COVID-19 Clin Com See Note ECG Data Attestation: I personally reviewed and interpreted this ECG as follows: Interpretation: 1006: Normal sinus rhythm with a rate of 82, normal SC, QRS and QTC intervals, no T-wave abnormalities, no ST segment elevation depression, this is a normal EKG. Critical Care Time Critical Care Time Critical Care Time: Yes Total Critical Care Time: 45 Attestation: Critical Care: The patient was critically ill with a high probability of imminent or life threatening deterioration. I spent greater than 30 minutes of discontinuous time evaluating the patient,delivering critical care at the bedside, discussing and evaluating pertinent data with consultants. Critical care time does not include time spent performing separately billable procedures or teaching. Total time spent performing critical care was 45 minutes. Discharge Plan Discharge Prescriptions: No Action polyethylene glycol 3350 [Miralax] 17 gram powder in packet 17 g PO DAILY Qty: 30 RF: 5 docusate sodium [Colace] 100 mg capsule 200 mg PO BEDTIME Qty: 60 RF: 5 Flovent HFA 220 mcg/actuation HFA aerosol inhaler 1 puff inhalation BID RF: 0 duloxetine 60 mg capsule,delayed release(DR/EC) 60 mg PO DAILY RF: 0 ondansetron HCl [Zofran] 4 mg tablet 8 mg PO BID RF: 0 nystatin 100,000 unit/mL suspension 4 ml buccal DAILY RF: 0 amitriptyline 25 mg tablet 25 mg PO BEDTIME RF: 0 lidocaine [Lidoderm] 5 % adhesive patch,medicated 1 patch topical DAILY RF: 0 docusate sodium [Colace] 100 mg capsule 100 mg PO BID PRNRF: 0 sennosides [senna] 8.6 mg tablet 17.2 mg PO BEDTIME RF: 0 acetaminophen 500 mg capsule 500 mg PO Q6H PRN (Reason: Pain) RF: 0 cholecalciferol (vitamin D3) 50 mcg (2,000 unit) capsule 50 mcg PO DAILY RF: 0 ibuprofen 800 mg tablet 800 mg PO TID PRN (Reason: Pain) RF: 0 bupropion HCl [Wellbutrin XL] 150 mg tablet extended release 24 hr 150 mg PO QAM RF: 0 omeprazole 20 mg tablet,delayed release (DR/EC) 20 mg PO DAILY RF: 0 albuterol sulfate [Ventolin HFA] 90 mcg/actuation HFA aerosol inhaler 2 puff inhalation Q4-6H PRN (Reason: Shortness Of Breath) RF: 0 estradiol [Estrace] 0.01 % (0.1 mg/gram) cream 1 g vaginal DAILY RF: 0 Nicotrol 10 mg cartridge 1 inh inhalation 6XD PRNRF: 0
[2020-07-15 14:00] VITALS: BP 101/52; PULSE 76; RESP 14; TEMP 36.9; O2SAT 99
--- NOTE | 2020-07-15 14:08 | PM.IMHP ---
History of Present Illness Date of Service: 07/15/20 Chief Complaint: Abdominal pain 55 year female with depression, constipation, GERRD, asthma who underwent EGD and colonscopy on 07/14/20. She went home and later started experiencing. She returned home mid day, sletp till around 2 pm and woke up with right sided, maily right lower quadrant pain that is sharp in nature, constant with sensation of a ball stuck there.home at around noon time after colonoscopy and slept until 2:00 p.m.. When she woke up at 2:00 p.m. she had sudden onset of10/10. The pain over the course of the day and night has worsene and becoming diffuse and ended up in the ED today where work up has revealed thickening in sigmoid/ascending colon. Dr Stanley who did the colonoscopy notes that the area was friable and could represent hematoma or infectious process. Her WBC is 13, there is no fever. She is started on Zosyn in the ED and will be admitted for further managment. Review of Systems Review of Systems: Gen: no fever Resp: no sob, no cough CV: no chest, no DUMONT, no leg edema GI: No n/v, abdominal apin Neuro: No confusion [facility] Medical History Abdominal adhesions Fibromyalgia Lupus Migraines Osteoarthritis Osteoporosis Vitamin D deficiency Family History Father No problems noted. Mother No problems noted. Surgical History H/O elbow surgery History of hysterectomy with oophorectomy History of removal of ovarian cyst Hx of appendectomy Hx of tonsillectomy Social History Household Members: Family Do you presently have visiting nurse or other home services: No Alcohol intake: never Smoking Status: Current every day smoker Tobacco Type: Cigarette Packs Per Day: 1 Cigarettes Per Day: 15 Years Smoked: 23 Use of substances other than those prescribed or required for medical reasons: No Currently Displaying Signs/Symptoms of Drug Intoxication Withdrawal: No Have you been hit, kicked, punched, or otherwise hurt by someone within the past year? If so, by whom?: No Do you feel safe in your current relationship?: Yes Is there a partner from a previous relationship who is making you feel unsafe now?: No Are you made to feel afraid or neglected: No Advance Directives: No Advance Directives Information Provided: No Do you have thoughts of harming others: None Do you have a plan to hurt others: No Plan Recently lost weight without trying: Yes service: No Current occupational status: disabled Meds Allergies Allergy/AdvReac Type Severity Reaction Status Date / Time tramadol [TRAMADOL] Allergy Unknown NAUSEA & Verified 07/09/20 12:23 VOMITING Active Medications: Current Medications Generic Name Dose Route Start Last Admin Trade Name Freq PRN Reason Stop Dose Admin Pharmacy Consult 1 each 07/15/20 13:47 Consult Rx Perform Med Rec MISCELLANE ONCE PRN Consult order Home Medications Medication Instructions Recorded Confirmed Last Taken Type acetaminophen 500 mg capsule 500 mg PO Q6H PRN 04/30/20 07/15/20 Unknown History albuterol sulfate 90 mcg/actuation 2 puff INHALATION Q4-6H PRN 04/30/20 07/15/20 Unknown History aerosol inhaler amitriptyline 25 mg tablet 25 mg PO BEDTIME 04/30/20 07/15/20 Unknown History bupropion HCl 150 mg 24 hr tablet, 150 mg PO DAILY 04/30/20 07/15/20 Unknown History extended release lidocaine 5 % topical patch 1 patch TOPICAL DAILY 04/30/20 07/15/20 Unknown History omeprazole 20 mg tablet,delayed 20 mg PO DAILY 04/30/20 07/15/20 07/14/20 07:40 History release 20 mg ondansetron HCl 4 mg tablet 4 mg PO BID tab 04/30/20 07/15/20 Unknown History sennosides 8.6 mg tablet 17.2 mg PO BEDTIME PRN tab 04/30/20 07/15/20 Unknown History ibuprofen 1 tab PO BID 07/15/20 07/15/20 Unknown History Physical Exam Vital Signs and Narrative: Vital Signs: Last Vital Signs Temp 98.5 F 07/15/20 11:14 Pulse 81 07/15/20 11:14 Resp 16 07/15/20 11:14 BP 110/56 L 07/15/20 11:14 Pulse Ox 100 07/15/20 11:14 Body Mass Index 19.3 Constitutional Awake and Alert, No apparent distress Neck Supple, No lymphadenopathy Cardiovascular RRR, No M/R/G, S1 S2, No S3 S4, No pedal edema Respiratory Lungs clear, No respiratory distress Gastrointestinal Non tender, Non-distended Skin No rash Neurological Alert & oriented x3 Psychological Appropriate affect Results Labs CBC and Chem 7: 07/16/20 05:57 07/16/20 05:57 Labs: Laboratory Results - last 24 hr 07/15/20 07/15/20 07/15/20 10:20 10:20 10:20 MCV 91.8 MCH 32.7 MCHC 35.7 H RDW 12.2 Plt Count 237 D MPV 10.0 Immature Gran % (Auto) 0.4 Neut % (Auto) 85.5 H Lymph % (Auto) 8.6 L [place] % (Auto) 5.2 Eos % (Auto) 0.1 Baso % (Auto) 0.2 Lymph # (Auto) 1.2 [place] # (Auto) 0.7 Eos # (Auto) 0.0 Baso # (Auto) 0.0 Abs Immat Gran (auto) 0.05 H Absolute Neuts (auto) 11.8 H Absolute Nucleated RBC 0.000 Nucleated RBC % (auto) 0.0 Anion Gap 12 Estim Creat Clear Calc 76.9 Estimated GFR > 60 Random Glucose 118 H Lactic Acid 0.8 Calcium 8.9 Total Bilirubin 0.7 AST 21 ALT 17 Alkaline Phosphatase 72 Troponin I High Sens Total Protein 6.5 Albumin 4.1 Lipase COVID-19 ([facility]) COVID-19 Clin Com 07/15/20 07/15/20 07/15/20 10:20 10:20 10:23 MCV MCH MCHC RDW Plt Count MPV Immature Gran % (Auto) Neut % (Auto) Lymph % (Auto) [place] % (Auto) Eos % (Auto) Baso % (Auto) Lymph # (Auto) [place] # (Auto) Eos # (Auto) Baso # (Auto) Abs Immat Gran (auto) Absolute Neuts (auto) Absolute Nucleated RBC Nucleated RBC % (auto) Anion Gap Estim Creat Clear Calc Estimated GFR Random Glucose Lactic Acid Calcium Total Bilirubin AST ALT Alkaline Phosphatase Troponin I High Sens < 3.5 Total Protein Albumin Lipase 11 COVID-19 ([facility]) Negative COVID-19 Clin Com See Note Imaging Radiologist's Impressions: Impressions Chest CT 07/15/20 09:58 IMPRESSION: 1. Mild to moderate abnormal mural thickening in the cecum and proximal aspect of the ascending colon as detailed above. This is nonspecific. Infectious/inflammatory colitis, acute injury secondary to biopsy or malignancy cannot be excluded. Definitive perforation is not seen. Correlate with patient history. If symptoms persist or worsen, short-term repeat CT scan of the abdomen and pelvis is recommended to assess for change. 2. Asymmetric opacities medially in the right upper lobe are nonspecific. The overall appearance suggests scarring/atelectasis. No prior chest CT scan is available for comparison. A repeat chest CT scan is recommended in 3 months to assess for change. 3. Incidental findings in the abdomen and pelvis have not significantly changed. Abdomen/Pelvis CT 07/15/20 09:59 IMPRESSION: 1. Mild to moderate abnormal mural thickening in the cecum and proximal aspect of the ascending colon as detailed above. This is nonspecific. Infectious/inflammatory colitis, acute injury secondary to biopsy or malignancy cannot be excluded. Definitive perforation is not seen. Correlate with patient history. If symptoms persist or worsen, short-term repeat CT scan of the abdomen and pelvis is recommended to assess for change. 2. Asymmetric opacities medially in the right upper lobe are nonspecific. The overall appearance suggests scarring/atelectasis. No prior chest CT scan is available for comparison. A repeat chest CT scan is recommended in 3 months to assess for change. 3. Incidental findings in the abdomen and pelvis have not significantly changed. Assessment and Plan (1) Acid reflux: Problem details: Avoid culprits, continue omeprazole 20 mg daily-remain upright 2-3 hours after eating Status: Acute (2) Chronic constipation: Problem details: MiraLax and Colon as 200 mg q.h.s. maintain high-fiber diet Status: Acute (3) Abdominal pain: Qualifiers: Abdominal location: right lower quadrant Qualified Code(s): R10.31 - Right lower quadrant pain Status: Acute (4) Colitis: Status: Acute 55/F female with depression, GERD, constipation, fibromyalgia underwent colonsopy yesterday 07/14/20 and now back back with abdominal pain and found to have colitis. 1. Colitis/suspected infectious--possibly from bacterial translocation -zosyn 3.375 Q8hr and follow clinicall -monitor clsoely for sings of perforation -follow cultures 2. Depression continue home meds 3./ Constipation--bowel regimen 4/ GERD--Omeprazeol 5/ DVT-prophylaxix--compression device given concern for possibility of hematoma
[2020-07-15] MEDS: Piperacillin Sodium/Tazobactam 3.375 GM in 0.9 % Sodium Chloride 50 ML IV ×2 (14:40→21:19)
[2020-07-15] MEDS: HYDROmorphone HCl 0.5 MG/0.5 ML SYRINGE IVPUSH (14:47)
--- NOTE | 2020-07-15 14:48 | PC.NURSE ---
PT REPORTS PAIN IS BACK, 8/10 AT THIS TIME. MEDICATED PER MD ORDERS, VS STABLE
--- NOTE | 2020-07-15 17:55 | PC.NURSE ---
tigered the hospitalist for pain medications
[2020-07-15] MEDS: Morphine Sulfate 2 MG/ML CARTRIDGE IVPUSH (21:14)
[2020-07-15 21:19] VITALS: BP 114/54; PULSE 85; RESP 16
[2020-07-15 21:34] VITALS: BP 113/47; PULSE 68; RESP 18; TEMP 36.8; O2SAT 95
[2020-07-15] MEDS: Docusate Sodium 100 MG CAPSULE 200 MG PO (21:43)
[2020-07-15] MEDS: Amitriptyline HCl 25 MG TABLET PO (21:43)
[2020-07-15 23:23] VITALS: BP 119/54; PULSE 73; RESP 18; TEMP 36.9; O2SAT 98
[2020-07-16] VITALS (9 sets, daily range): BP systolic 104–119; BP diastolic 46–68; PULSE 69–89; RESP 16–21; TEMP 36–37.4; O2SAT 90–99
[2020-07-16] MEDS: 0.9 % Sodium Chloride Flush 3 ML SYRINGE IVFLUSH ×3 (00:13→17:26)
[2020-07-16] MEDS: Morphine Sulfate 2 MG/ML CARTRIDGE IVPUSH ×6 (00:56→22:13)
[2020-07-16] MEDS: Piperacillin Sodium/Tazobactam 3.375 GM in 0.9 % Sodium Chloride 50 ML IV ×4 (01:40→20:17)
[2020-07-16] MEDS: Omeprazole 20 MG CAPSULE.DR PO (05:40)
[2020-07-16 06:38] LABS: MANUAL DIFF FLAG NO
[2020-07-16 06:48] LABS: Basophils Percent Auto 0.4 % (0-2); Eosinophils Absolute Auto 0.2 X10*3/uL (0.0-0.4); Eosinophils Percent Auto 1.7 % (0-4); Hematocrit 34.4 % (37-47); Hemoglobin 11.7 g/dl (12.0-16.0); Imm Gran Abs Auto 0.04 X10*3/uL (0.00-0.03); Imm Gran Pct Auto 0.4 % (0.0-0.4); Lymphocytes Absolute Auto 1.5 X10*3/uL (1.2-4.9); Lymphocytes Percent Auto 13.3 % (20-40); Mean Corpuscular Hemoglobin 31.7 pg (27.0-33.0); Mean Corpuscular Volume 93.2 fL (80-98); Mean Platelet Volume 10.4 fL (9.4-12.3); Monocytes Absolute Auto 0.7 X10*3/uL (0.1-1.2); Monocytes Percent Auto 6.3 % (2-11); Neutrophils Absolute Auto 8.5 X10*3/uL (2.0-8.3); Neutrophils Percent Auto 77.9 % (45-73); Platelet Count 230 X10*3/uL (160-400); Red Blood Count 3.69 X10*6/uL (4.20-5.50); White Blood Count 10.9 X10*3/uL (4.8-10.8)
[2020-07-16 07:14] LABS: Anion Gap 15 (12-20); Blood Urea Nitrogen 12 mg/dL (9-16); Calcium 8.5 mg/dL (8.4-10.2); Carbon Dioxide 24 mmol/L (22-29); Chloride 107 mmol/L (96-108); Creatinine Clr Calc Pharmacy 84.9; Estimated Glomerular Filt Rate > 60; Glucose Random 63 mg/dL (60-115); Potassium 3.5 mmol/L (3.3-5.1); Sodium 142 mmol/L (135-145)
--- NOTE | 2020-07-16 08:00 | PM.GICN ---
History of Present Illness Data of Consult Service Date: 07/15/20 Requesting physician: Pacheco Knox Primary Care Provider: 55 YF presented to [facility] ED earlier today with abdominal pain 3 hrs after an uneventful EGD and Colonoscopy on 07/14/20. 55-year-old female who presents emergency department for evaluation abdominal pain status post colonoscopy yesterday. The patient states that she got home at around noon time after colonoscopy and slept until 2:00 p.m.. When she woke up at 2:00 p.m. she had sudden onset of right lower quadrant, sharp, constant pain. She states she felt like there was a ball in her right lower quadrant area. She states the pain became progressively worse and then diffuse. The pain was 10/10 at its worse and is 10/10 here in the emergency department. She had associated nausea with no vomiting. She states that she had a very small amount of diarrhea last night but did not notice any blood in her bowel movement. She states that she had shaking chills throughout the night but did not have a fever. She is also complaining of right-sided chest pain which is worse with movement and with breathing. She denied cough, shortness of breath or dyspnea on exertion . Patient reports improvement in abdominal pain after she recieved IV pain medications in the ED. Labs showed mild leucocytosis with a left shift. 07/14/20 EGD and Colonoscopy showed: ESOPHAGUS: Focxal esophagitis at GE junction. STOMACH: Gastritis Colonoscopy Findings: One small hyperplastic polyp removed Random biopsies were obtained from the right colon. Moderate hemorrhoids on retroflexed exam. Plan: Patient has an appointment on 08/04/20 in the GI Clinic with STEPHANIE Ledesma. Repeat Colonoscopy interval based on path results - in 10 years if polyps are hyperplastic. Above findings were reviewed with the patient and colon polyps and Gastritis handouts were given in the discharge area 07/15/[address] SCAN SHOWED: 1. Mild to moderate abnormal mural thickening in the cecum and proximal aspect of the ascending colon as detailed above. This is nonspecific. Infectious/inflammatory colitis, acute injury secondary to biopsy or malignancy cannot be excluded. Definitive perforation is not seen. Correlate with patient history. If symptoms persist or worsen, short-term repeat CT scan of the abdomen and pelvis is recommended to assess for change. 2. Asymmetric opacities medially in the right upper lobe are nonspecific. The overall appearance suggests scarring/atelectasis. No prior chest CT scan is available for comparison. A repeat chest CT scan is recommended in 3 months to assess for change. 3. Incidental findings in the abdomen and pelvis have not significantly changed. Review of Systems Constitutional: Constitutional: Reports difficulty sleeping, Denies fever(s), Reports headache(s) and Denies weight loss Eyes: Eyes: Denies eye discharge, Reports dry eyes and Denies irritation ENT: Reports Normal hearing present, Denies dysphagia, Denies dizziness, Reports dry mouth and Reports headache(s) Cardiovascular: Cardiovascular: Reports chest pain, Denies leg edema, Reports dyspnea ( at rest), Reports dyspnea on exertion and Reports other ( palpitations) Respiratory: Respiratory: Denies cough, Reports dyspnea ( at rest) and Reports dyspnea on exertion Gastrointestinal: Gastrointestinal: Reports abdominal pain, Denies change in bowel habits, Denies dysphagia and Denies heartburn Genitourinary: Genitourinary: Denies difficulty voiding, Denies dysuria and Reports other ( urinary frequency) Musculoskeletal: Musculoskeletal: Denies back pain and Reports arthralgias ( arthritis) Integumentary/Breasts: Skin/Breast: Denies pruritus, Reports rash, Denies jaundice and Reports other (Alopecia, photosensitivity) Neurologic: Reports Normal hearing present, Denies Abnormal speech present, Denies dizziness, Reports headache(s) and Denies seizure-like activity Psychiatric: Psychiatric: Reports anxiety, Reports depression and Denies panic attacks Endocrine: Endocrine: Denies cold intolerance, Denies flushing and Denies heat intolerance PMFSH Past Medical History Medical History Abdominal adhesions Fibromyalgia Lupus Migraines Osteoarthritis Osteoporosis Vitamin D deficiency Family History Family History Father No problems noted. Mother No problems noted. Surgical History Surgical History H/O elbow surgery History of hysterectomy with oophorectomy History of removal of ovarian cyst Hx of appendectomy Hx of tonsillectomy Social History Social History Household Members: Family Do you presently have visiting nurse or other home services: No Alcohol intake: never Smoking Status: Current every day smoker Tobacco Type: Cigarette Packs Per Day: 1 Cigarettes Per Day: 15 Years Smoked: 23 Use of substances other than those prescribed or required for medical reasons: No Currently Displaying Signs/Symptoms of Drug Intoxication Withdrawal: No Have you been hit, kicked, punched, or otherwise hurt by someone within the past year? If so, by whom?: No Do you feel safe in your current relationship?: Yes Is there a partner from a previous relationship who is making you feel unsafe now?: No Are you made to feel afraid or neglected: No Advance Directives: No Advance Directives Information Provided: No Do you have thoughts of harming others: None Do you have a plan to hurt others: No Plan Recently lost weight without trying: Yes service: No Current occupational status: disabled Meds Allergies Allergy/AdvReac Type Severity Reaction Status Date / Time tramadol [TRAMADOL] Allergy Unknown NAUSEA & Verified 07/09/20 12:23 VOMITING Home Medications Medication Instructions Recorded Confirmed Last Taken Type acetaminophen 500 mg capsule 500 mg PO Q6H PRN 04/30/20 07/15/20 Unknown History albuterol sulfate 90 mcg/actuation 2 puff INHALATION Q4-6H PRN 04/30/20 07/15/20 Unknown History aerosol inhaler amitriptyline 25 mg tablet 25 mg PO BEDTIME 04/30/20 07/15/20 Unknown History bupropion HCl 150 mg 24 hr tablet, 150 mg PO DAILY 04/30/20 07/15/20 Unknown History extended release lidocaine 5 % topical patch 1 patch TOPICAL DAILY 04/30/20 07/15/20 Unknown History omeprazole 20 mg tablet,delayed 20 mg PO DAILY 04/30/20 07/15/20 07/14/20 07:40 History release 20 mg ondansetron HCl 4 mg tablet 4 mg PO BID tab 04/30/20 07/15/20 Unknown History sennosides 8.6 mg tablet 17.2 mg PO BEDTIME PRN tab 04/30/20 07/15/20 Unknown History ibuprofen 1 tab PO BID 07/15/20 07/15/20 Unknown History Physical Exam Vital Signs: Vital Signs: Last Vital Signs Temp 97.5 F 07/14/20 11:00 Pulse 80 07/14/20 11:15 Resp 18 07/14/20 11:15 BP 127/63 07/14/20 11:15 Pulse Ox 99 07/14/20 11:15 Body Mass Index 19.8 Const: General: no acute distress, in distress (due to abdominal pain), anxious and ill appearing Nutritional Appearance: average body habitus Orientation/consciousness: patient oriented x3 Limitations: no limitations HENMT: Head: Yes normal to inspection Ears: hearing grossly normal bilaterally Mouth: Normal oral and palatal mucosa present Eyes: Sclerae: sclerae normal Pupils: Equal, round and reactive pupils present Neck: Neck: Yes normal visual inspection Chest: Chest palpation & inspection: normal inspection of the chest Resp: Effort & Inspection: normal respiratory effort Auscultation: clear to auscultation bilaterally Cardio: Palpation: normal PMI Rate: regular rate Rhythm: regular rhythm Heart sounds: S1 normal heart sound present, S2 normal heart sound present and no murmurs GI: Palpation (GI): Soft to palpation, Tenderness to palpation present (GI) in the RLQ and suprapubicly and No hepatosplenomegaly present Auscultation: normal bowel sounds Rectal Exam - Female: deferred Skin: General skin exam: no rashes or lesions noted Neuro: General: patient oriented x3, gait normal and moves all extremities Cranial nerves: Yes Equal, round and reactive pupils present and Yes Normal hearing present Speech: No Abnormal speech present Psych: Appearance: grossly normal Mental Status: mental status grossly normal Results Labs CBC & Chem 7: 07/16/20 05:57 07/16/20 05:57 Labs: Laboratory Tests 07/15/20 10:20 WBC 13.8 H Hgb 12.7 Hct 35.6 L Plt Count [address] scan - abdomen: Radiologist's impression: 1. Mild to moderate abnormal mural thickening in the cecum and proximal aspect of the ascending colon as detailed above. This is nonspecific. Infectious/inflammatory colitis, acute injury secondary to biopsy or malignancy cannot be excluded. Definitive perforation is not seen. Correlate with patient history. If symptoms persist or worsen, short-term repeat CT scan of the abdomen and pelvis is recommended to assess for change. 2. Asymmetric opacities medially in the right upper lobe are nonspecific. The overall appearance suggests scarring/atelectasis. No prior chest CT scan is available for comparison. A repeat chest CT scan is recommended in 3 months to assess for change. 3. Incidental findings in the abdomen and pelvis have not significantly changed. Assessment and Plan (1) Abdominal pain: Qualifiers: Abdominal location: right lower quadrant Qualified Code(s): R10.31 - Right lower quadrant pain (2) Colonic hematoma: Qualifiers: Encounter type: initial encounter Qualified Code(s): S36.529A - Contusion of unspecified part of colon, initial encounter Status: Deleted 55 year old Grenadian speaking female with RLQ abdominal pain 3 hrs after EGD and colonoscopy with biopsies. Colonoscopy showed friable appearing mucosa and random biopsies were obtained. Wall thickening in cecum and ascending colon on abd CT scan likely due to submucosal hematoma at biopsy site versus barotrauma from air insufflation during colonoscopy. RECOMMENDATIONS: 1. IV fluids and IV pain medications for pain control. 2. Empiric IV antibiotics until leucocytosis resolves 3. Clear liquid diet and advance diet as tolerated.
[2020-07-16] MEDS: buPROPion HCl XL 150 MG TAB.ER.24H PO (08:15)
[2020-07-16] MEDS: polyethylene glycoL 3350 17 GM POWD.PACK PO (08:16)
--- NOTE | 2020-07-16 08:55 | MHC.CM.PN ---
CM met with Patient at bedside with the assist of [facility] Burn Table Operator. Patient lives in an apartment with her [id number] and her Granddaughter and she is functionally independent. Patient's goal is to return home and CM has initiated and will follow for dc planning.PCP is from [facility].
--- NOTE | 2020-07-16 10:25 | HO.PM.IMPN ---
Subjective Subjective Date of Service: 07/18/20 Interval History: Seen in follow up for colitis, still has abodminal pain Review of Systems Gen: no fever Resp: no sob, no cough CV: no chest, no DUMONT, no leg edema GI: No n/v, abdominal apin Neuro: No confusion Physical Exam Vital Signs: Vital Signs: Last Vital Signs Temp 97 F 07/16/20 07:39 Pulse 79 07/16/20 07:39 Resp 18 07/16/20 07:39 BP 108/54 L 07/16/20 07:39 Pulse Ox 99 07/16/20 07:39 Body Mass Index 20.0 General: AO X 3, no acute distress Resp: CTA bilateral CVS: S1,S2,RRR GI: +BS, mild tenderness, no distention Skin: No rash Neuro: motor grossly intact Psych: appropriate affect Objective Data Current Medications Generic Name Dose Route Start Last Admin Trade Name Freq PRN Reason Stop Dose Admin Acetaminophen 650 mg 07/15/20 21:11 Acetaminophen 325 Mg Tablet PO Q6H PRN Pain, Mild (Pain Scale 1-3) Albuterol Sulfate 2 puff 07/15/20 21:11 Albuterol Sulfate 90 Mcg 8 Gm Inhaler INHALE Q4H PRN Shortness Of Breath Amitriptyline HCl 25 mg 07/15/20 21:11 07/15/20 21:43 Amitriptyline Hcl 25 Mg Tablet PO 25 mg BEDTIME NASH Administration Bupropion HCl 150 mg 07/16/20 09:00 07/16/20 08:15 Bupropion Hcl Xl 150 Mg Tab.Er.24h PO 150 mg DAILY NASH Administration Docusate Sodium 200 mg 07/15/20 21:11 07/15/20 21:43 Docusate Sodium 100 Mg Capsule PO 200 mg BEDTIME NASH Administration Piperacillin Sod/Tazobactam 50 mls @ 100 mls/hr 07/15/20 20:00 07/16/20 08:51 Sod 3.375 gm/ Sodium Chloride IV Infused Q6H NASH Infusion Morphine Sulfate 2 mg 07/15/20 19:43 07/16/20 09:23 Morphine Sulfate 2 Mg/Ml Cartridge IVPUSH 2 mg Q4H PRN Administration Pain, Severe (Pain Scale 7-10) Omeprazole 20 mg 07/16/20 06:30 07/16/20 05:40 Omeprazole 20 Mg Capsule. PO 20 mg DAILY@0630 NASH Administration Ondansetron HCl 4 mg 07/15/20 21:11 Ondansetron Hcl 4 Mg/2 Ml Vial IVPUSH Q8H PRN Nausea and Vomiting Pharmacy Consult 1 each 07/15/20 13:47 Consult Rx Perform Med Rec MISCELLANE ONCE PRN Consult order Polyethylene Glycol 17 gm 07/16/20 09:00 07/16/20 08:16 Polyethylene Glycol 3350 17 Gm Powd.Pack PO 17 gm DAILY NASH Administration Senna 17.2 mg 07/15/20 21:11 Sennosides 8.6 Mg Tablet PO BEDTIME PRN Constipation Sodium Chloride 3 ml 07/16/20 00:00 07/16/20 08:16 0.9 % Sodium Chloride Flush 3 Ml Syringe IVFLUSH 3 ml QSHIFT NASH Administration Labs CBC & Chem 7: 07/16/20 05:57 07/16/20 05:57 Assessment and Plan (1) Acid reflux: Problem details: Avoid culprits, continue omeprazole 20 mg daily-remain upright 2-3 hours after eating Status: Acute (2) Chronic constipation: Problem details: MiraLax and Colon as 200 mg q.h.s. maintain high-fiber diet Status: Acute (3) Abdominal pain: Status: Acute (4) Colitis: Status: Acute Assessment and Plan: 55/F female with depression, GERD, constipation, fibromyalgia underwent colonsopy yesterday 07/14/20 and now back back with abdominal pain and found to have colitis. 1. Colitis/suspected infectious--possibly from bacterial translocation -zosyn 3.375 Q8hr and follow clinically -monitor clsoely for sings of perforation -follow cultures -morphine for pain 2/ Depression continue home meds 3./ Constipation--bowel regimen 4/ GERD--Omeprazeol 5/ DVT-prophylaxix--compression device given concern for possibility of hematoma
[2020-07-16] MEDS: Acetaminophen 325 MG TABLET 650 MG PO (20:17)
[2020-07-16] MEDS: Docusate Sodium 100 MG CAPSULE 200 MG PO (21:15)
[2020-07-16] MEDS: Amitriptyline HCl 25 MG TABLET PO (21:15)
[2020-07-17] MEDS: 0.9 % Sodium Chloride Flush 3 ML SYRINGE IVFLUSH ×3 (01:01→15:30)
[2020-07-17] MEDS: Morphine Sulfate 2 MG/ML CARTRIDGE IVPUSH ×5 (02:01→19:29)
[2020-07-17] MEDS: Piperacillin Sodium/Tazobactam 3.375 GM in 0.9 % Sodium Chloride 50 ML IV ×4 (02:01→19:30)
[2020-07-17 03:43] VITALS: BP 110/58; PULSE 86; RESP 16; TEMP 36; O2SAT 99
[2020-07-17] MEDS: Omeprazole 20 MG CAPSULE.DR PO (06:24)
[2020-07-17 08:00] VITALS: BP 105/46; PULSE 82; RESP 18; TEMP 36.3; O2SAT 92
[2020-07-17] MEDS: polyethylene glycoL 3350 17 GM POWD.PACK PO (08:46)
[2020-07-17] MEDS: buPROPion HCl XL 150 MG TAB.ER.24H PO (08:46)
--- NOTE | 2020-07-17 10:59 | MHC.CM.PN ---
TODAY'S PLAN IS TO ADVANCE DIET. IF TOLERATED, SHE WILL DISCHARGE HOME LATER TODAY.
[2020-07-17 12:00] VITALS: BP 129/53; PULSE 95; RESP 17; TEMP 36.5; O2SAT 95
[2020-07-17 15:50] VITALS: BP 99/44; PULSE 79; RESP 18; TEMP 36.3; O2SAT 95
[2020-07-17 19:35] VITALS: BP 112/46; PULSE 78; RESP 19; TEMP 36.4; O2SAT 96
[2020-07-17] MEDS: Amoxicillin/Potassium Clav 500 MG TABLET PO (21:17)
[2020-07-17] MEDS: Amitriptyline HCl 25 MG TABLET PO (21:17)
[2020-07-17] MEDS: diphenhydrAMINE HCL 50 MG/ML VIAL 25 MG IVPUSH (22:07)
[2020-07-17 23:36] VITALS: BP 116/65; PULSE 76; RESP 18; TEMP 36; O2SAT 100
[2020-07-18] MEDS: Morphine Sulfate 2 MG/ML CARTRIDGE IVPUSH ×2 (00:33→06:18)
[2020-07-18] MEDS: ondansetron HCL 4 MG/2 ML VIAL IVPUSH (00:36)
[2020-07-18 01:46] LABS: CDIFF Ag Negative (Negative); CDIFF Internal ctrl Dots and bkg OK (V); CDiff Toxin Negative (Negative)
[2020-07-18] MEDS: 0.9 % Sodium Chloride Flush 3 ML SYRINGE IVFLUSH ×2 (02:28→09:24)
[2020-07-18 03:58] VITALS: BP 114/53; PULSE 68; RESP 18; TEMP 36.1; O2SAT 100
[2020-07-18] MEDS: Omeprazole 20 MG CAPSULE.DR PO (06:18)
[2020-07-18 08:00] VITALS: BP 134/77; PULSE 85; RESP 18; O2SAT 95
[2020-07-18] MEDS: Amoxicillin/Potassium Clav 500 MG TABLET PO (09:23)
[2020-07-18] MEDS: buPROPion HCl XL 150 MG TAB.ER.24H PO (09:24)
--- NOTE | 2020-07-18 10:11 | MHC.CM.PN ---
PATIENT IS RETURNING HOME WITH NO NEED FOR SERVICES. FAMILY TO TRANSPORT. RN AWARE OF PLAN.
--- NOTE | 2020-07-18 10:13 | P.DS_ITS ---
DS: Providers Provider Date of Service: 07/18/20 Date of admission: 07/15/20 19:50 Primary care physician: [facility] DS: Diagnosis Discharge Diagnosis (1) Acid reflux: Status: Acute Problem details: Avoid culprits, continue omeprazole 20 mg daily-remain upright 2-3 hours after eating (2) Chronic constipation: Status: Acute Problem details: MiraLax and Colon as 200 mg q.h.s. maintain high-fiber diet (3) Abdominal pain: Status: Acute (4) Colitis: Status: Acute DS: Medications Discharge Medications Home Medications: Home Medications Medication Instructions Recorded Confirmed acetaminophen 500 mg capsule 500 mg PO Q6H PRN 04/30/20 07/15/20 albuterol sulfate 90 mcg/actuation 2 puff INHALATION Q4-6H PRN 04/30/20 07/15/20 aerosol inhaler amitriptyline 25 mg tablet 25 mg PO BEDTIME 04/30/20 07/15/20 bupropion HCl 150 mg 24 hr tablet, 150 mg PO DAILY 04/30/20 07/15/20 extended release lidocaine 5 % topical patch 1 patch TOPICAL DAILY 04/30/20 07/15/20 omeprazole 20 mg tablet,delayed 20 mg PO DAILY 04/30/20 07/15/20 release ondansetron HCl 4 mg tablet 4 mg PO BID tab 04/30/20 07/15/20 sennosides 8.6 mg tablet 17.2 mg PO BEDTIME PRN tab 04/30/20 07/15/20 ibuprofen 1 tab PO BID 07/15/20 07/15/20 Previous Rx's Medication Instructions Recorded docusate sodium 100 mg capsule 200 mg PO BEDTIME #60 cap 06/09/20 polyethylene glycol 3350 17 gram 17 g PO DAILY #30 ea 06/09/20 oral powder packet amoxicillin-pot clavulanate 500 mg PO Q12H #8 tab 07/18/20 oxycodone 5 mg PO Q6H PRN #10 tab 07/18/20 DS: Summary Hospital Course Hospital Course: Chief Complaint: Abdominal pain 55 year female with depression, constipation, GERRD, asthma who underwent EGD and colonscopy on 07/14/20. She went home and later started experiencing. She returned home mid day, sletp till around 2 pm and woke up with right sided, maily right lower quadrant pain that is sharp in nature, constant with sensation of a ball stuck there.home at around noon time after colonoscopy and slept until 2:00 p.m.. When she woke up at 2:00 p.m. she had sudden onset of10/10. The pain over the course of the day and night has worsene and becoming diffuse and ended up in the ED today where work up has revealed thickening in sigmoid/ascending colon. Dr Stanley who did the colonoscopy notes that the area was friable and could represent hematoma or infectious process. Her WBC is 13, there is no fever. She is started on Zosyn in the ED and will be admitted for further managment. Hospital course: Patient was treated with IV Zosyn for colitis and responded to therapy. Diet was advanced gradually and is tolerating regular diet well. Pain hs signficantly improved. Will transitioned to oral Augmentin for 4 more days. She will follow up with Dr. Stanley on 08/04/20. Time Spent with Patient Time attestation: Total time spent providing and/or coordinating discharge services: Discharge coordination time: Greater than 30 minutes Physical Exam Vital Signs: Vital Signs: Last Vital Signs Temp 96.9 F 07/18/20 03:58 Pulse 85 07/18/20 08:00 Resp 18 07/18/20 08:00 BP 134/77 07/18/20 08:00 Pulse Ox 95 07/18/20 08:00 Body Mass Index 20.0 General: AO X 3, no acute distress Resp: CTA bilateral CVS: S1,S2,RRR GI: +BS, mild tenderness, no distention Skin: No rash Neuro: motor grossly intact Psych: appropriate affect DS: Data Data Completed and Pending Labs on day of discharge: Laboratory Results - last 24 hr 07/18/20 00:45 C. difficile Toxin A&B Negative C. difficile Antigen Negative C. difficile Interpret SEE NOTE Preliminary micro results at discharge 07/15/20 14:25 Blood Culture - Preliminary Blood - Venous No growth after 48 hours. 07/15/20 14:24 Blood Culture - Preliminary Blood - Venous No growth after 48 hours. 07/15/20 10:23 Blood Culture - Preliminary Blood - Venous No growth after 48 hours. 07/15/20 10:20 Blood Culture - Preliminary Blood - Venous No growth after 48 hours. Discharge Plan Discharge Anticipated Discharge Date/Time: 07/18/20 10:07 Patient Disposition: Home, Self-Care Referrals: [place] [Primary Care Provider] - Discharge Medications: New amoxicillin-pot clavulanate 500-125 mg Tablet 500 mg PO Q12H Qty: 8 RF: 0 oxycodone 5 mg tablet 5 mg PO Q6H PRN (Reason: pain) Qty: 10 RF: 0 Continued ibuprofen 600 mg tablet 1 tab PO BID RF: 0 polyethylene glycol 3350 [Miralax] 17 gram powder in packet 17 g PO DAILY Qty: 30 RF: 5 docusate sodium [Colace] 100 mg capsule 200 mg PO BEDTIME Qty: 60 RF: 5 ondansetron HCl [Zofran] 4 mg tablet 4 mg PO BID RF: 0 amitriptyline 25 mg tablet 25 mg PO BEDTIME RF: 0 lidocaine [Lidoderm] 5 % adhesive patch,medicated 1 patch topical DAILY RF: 0 sennosides [senna] 8.6 mg tablet 17.2 mg PO BEDTIME PRN (Reason: Constipation) RF: 0 acetaminophen 500 mg capsule 500 mg PO Q6H PRN (Reason: Pain) RF: 0 bupropion HCl [Wellbutrin XL] 150 mg tablet extended release 24 hr 150 mg PO DAILY RF: 0 omeprazole 20 mg tablet,delayed release (DR/EC) 20 mg PO DAILY RF: 0 albuterol sulfate [Ventolin HFA] 90 mcg/actuation HFA aerosol inhaler 2 puff inhalation Q4-6H PRN (Reason: Shortness Of Breath) RF: 0 Discharge Orders: Discharge Order (Routine); Ordered 07/18/20 Ordered By: Anish Mckinney Diet: advance to usual diet Activity on Discharge: As tolerated Stand Alone Forms: Patient Portal Discharge page Care Plan Goals: Full recovery from colitis Health Concerns: colitis Plan of Treatment: follow up with Dr. Mcgill as scheduled on the 04 august
--- NOTE | 2020-07-18 10:18 | HO.PM.IMPN ---
Subjective Subjective Date of Service: 07/17/20 Interval History: .late entry note Seen in follow up for colitis, still has abodminal pain, better but has diarrhea Review of Systems Gen: no fever Resp: no sob, no cough CV: no chest, no DUMONT, no leg edema GI: No n/v, abdominal apin Neuro: No confusion Physical Exam Vital Signs: Vital Signs: Last Vital Signs Vitals reviewed to be stable Body Mass Index 20.0 General: AO X 3, no acute distress Resp: CTA bilateral CVS: S1,S2,RRR GI: +BS, mild tenderness, no distention Skin: No rash Neuro: motor grossly intact Psych: appropriate affect Objective Data Current Medications Generic Name Dose Route Start Last Admin Trade Name Freq PRN Reason Stop Dose Admin Acetaminophen 650 mg 07/15/20 21:11 07/16/20 20:17 Acetaminophen 325 Mg Tablet PO 650 mg Q6H PRN Administration Pain, Mild (Pain Scale 1-3) Albuterol Sulfate 2 puff 07/15/20 21:11 Albuterol Sulfate 90 Mcg 8 Gm Inhaler INHALE Q4H PRN Shortness Of Breath Amitriptyline HCl 25 mg 07/15/20 21:11 07/17/20 21:17 Amitriptyline Hcl 25 Mg Tablet PO 25 mg BEDTIME NASH Administration Amoxicillin/Clavulanate Potassium 500 mg 07/17/20 21:00 07/18/20 09:23 Amoxicillin/Potassium Clav 500 Mg Tablet PO 500 mg Q12H NASH Administration Bupropion HCl 150 mg 07/16/20 09:00 07/18/20 09:24 Bupropion Hcl Xl 150 Mg Tab.Er.24h PO 150 mg DAILY NASH Administration Docusate Sodium 200 mg 07/15/20 21:11 07/17/20 21:10 Docusate Sodium 100 Mg Capsule PO Not Given BEDTIME NASH Morphine Sulfate 2 mg 07/15/20 19:43 07/18/20 06:18 Morphine Sulfate 2 Mg/Ml Cartridge IVPUSH 2 mg Q4H PRN Administration Pain, Severe (Pain Scale 7-10) Omeprazole 20 mg 07/16/20 06:30 07/18/20 06:18 Omeprazole 20 Mg Capsule. PO 20 mg DAILY@0630 NASH Administration Ondansetron HCl 4 mg 07/15/20 21:11 07/18/20 00:36 Ondansetron Hcl 4 Mg/2 Ml Vial IVPUSH 4 mg Q8H PRN Administration Nausea and Vomiting Pharmacy Consult 1 each 07/15/20 13:47 Consult Rx Perform Med Rec MISCELLANE ONCE PRN Consult order Polyethylene Glycol 17 gm 07/16/20 09:00 07/18/20 09:24 Polyethylene Glycol 3350 17 Gm Powd.Pack PO Not Given DAILY NASH Senna 17.2 mg 07/15/20 21:11 Sennosides 8.6 Mg Tablet PO BEDTIME PRN Constipation Sodium Chloride 3 ml 07/16/20 00:00 07/18/20 09:24 0.9 % Sodium Chloride Flush 3 Ml Syringe IVFLUSH 3 ml QSHIFT NASH Administration Labs CBC & Chem 7: 07/16/20 05:57 07/16/20 05:57 Microbiology Microbiology Results: Microbiology 07/15/20 14:25 Blood - Venous Blood Culture - Preliminary No growth after 48 hours. 07/15/20 14:24 Blood - Venous Blood Culture - Preliminary No growth after 48 hours. 07/15/20 10:23 Blood - Venous Blood Culture - Preliminary No growth after 48 hours. 07/15/20 10:20 Blood - Venous Blood Culture - Preliminary No growth after 48 hours. Assessment and Plan (1) Acid reflux: Problem details: Avoid culprits, continue omeprazole 20 mg daily-remain upright 2-3 hours after eating Status: Acute (2) Chronic constipation: Problem details: MiraLax and Colon as 200 mg q.h.s. maintain high-fiber diet Status: Acute (3) Abdominal pain: Status: Acute (4) Colitis: Status: Acute Assessment and Plan: 55/F female with depression, GERD, constipation, fibromyalgia underwent colonsopy yesterday 07/14/20 and now back back with abdominal pain and found to have colitis. 1. Colitis/suspected infectious--possibly from bacterial translocation -zosyn 3.375 Q8hr and follow clinically, change to Augmentin today -monitor clsoely for sings of perforation -follow cultures -morphine for pain -check c dif for diarrhea 2/ Depression continue home meds 3./ Constipation--bowel regimen 4/ GERD--Omeprazeol 5/ DVT-prophylaxix--compression device given concern for possibility of hematoma Late enty note for 07/17
== END 2020-07-18 10:32 | disposition home or self-care (01) | DRG 249 ==
LOC: HO.ED 13:49 → HO.EDOVER 19:57 → HO.IMC 20:38 → HO.S3 07-16 13:36
PROVIDERS: Admitting Provider Internal Medicine; Emergency Provider Emergency Medicine Emergency Medical Services; PCP Family Medicine; Visit Provider Internal Medicine
DX: A09 Infectious gastroenteritis and colitis, unspecified (principal); F17.210 Nicotine dependence, cigarettes, uncomplicated; K21.9 Gastro-esophageal reflux disease without esophagitis; Z71.6 Tobacco abuse counseling; F32.9 Major depressive disorder, single episode, unspecified; K59.00 Constipation, unspecified; Z20.822 Contact with and (suspected) exposure to COVID-19; Z79.1 Long term (current) use of non-steroidal anti-inflammatories (NSAID); Z79.891 Long term (current) use of opiate analgesic; Z79.899 Other long term (current) drug therapy
CPT/HCPCS: 36415; 71260; 74177; 80048; 80053; 83605; 83690; 84484; 85025; 87040; 87324; 87449; 87635; 93005; 96365; 96375; 99285; 99291; J1170; J1200; J2270; J2405; J2543; Q9967

== ENCOUNTER → 2020-07-30 12:10 | Outpatient (BNVA) | payer MEDICAID, SELFPAY | PROVIDERS: Visit Provider Internal Medicine ==

== ENCOUNTER 2020-08-19 10:00 | Outpatient (REF) | payer MEDICAID, SELFPAY ==
--- NOTE | ~2020-08-19 | XR_ITS ---
EXAMINATION: XR RIBS, RIGHT CLINICAL INFORMATION: Pleurodynia COMPARISON: Previous chest x-ray August [address] July 2020 TECHNIQUE: 3 views of the right ribs were obtained. FINDINGS: No rib fracture or bone lesion is seen. The right lung is clear. There is no right pleural effusion or pneumothorax. XR/XR ribs RT 2V IMPRESSION: Unremarkable examination.
== END 2020-08-19 10:01 | disposition home or self-care (01) ==
LOC: HO.XRAY 10:00
PROVIDERS: PCP Nurse Practitioner; Visit Provider Nurse Practitioner
DX: R07.81 Pleurodynia (principal)
CPT/HCPCS: 71100

== ENCOUNTER → 2020-12-29 11:16 | Outpatient (BNVA) | payer MEDICAID, SELFPAY | PROVIDERS: Visit Provider Internal Medicine ==

== ENCOUNTER 2021-03-22 05:10 | Inpatient (IN) | payer MEDICAID, SELFPAY ==
[2021-03-22] VITALS (7 sets, daily range): BP systolic 130–160; BP diastolic 59–76; PULSE 78–85; RESP 16–18; TEMP 37.1; O2SAT 94–98; BMI 17.9
--- NOTE | ~2021-03-22 | CT_ITS ---
EXAMINATION: CT ABDOMEN AND PELVIS WITH CONTRAST CLINICAL INFORMATION: Follow-up small bowel obstruction COMPARISON: Previous CT scans most recent 03/22/2021 TECHNIQUE: Multidetector volumetric images were obtained from the superior aspect of the liver through the pubic symphysis following administration 85 mL of Omnipaque 350 intravenous contrast. Sagittal and coronal reformatted images were obtained on the technologist's workstation. Oral contrast: Yes This CT examination was performed using dose optimization techniques as appropriate, variously including the following: *Automated exposure control *Adjustment of mA and/or kV according to patient size (this includes techniques or standardized protocols for targeted exams where dose is matched to indication/reason for exam; i.e. extremities or head) *Use of iterative reconstruction technique DLP: 205 mGy-cm FINDINGS: LUNG BASES: There are new scattered areas of atelectasis or small infiltrates at the lung bases. LIVER, GALLBLADDER, AND BILIARY TREE: The liver is normal in size, shape, and attenuation. No focal hepatic lesion or biliary ductal dilatation is present. The gallbladder is unremarkable with no evidence of radiopaque gallstones, gallbladder wall thickening, or obvious pericholecystic inflammatory changes. PANCREAS: Unremarkable. SPLEEN: Unremarkable. ADRENAL GLANDS: Unremarkable. KIDNEYS AND URETERS: There are 2 left renal cysts. No imaging follow-up is needed. The kidneys are otherwise unremarkable. BLADDER: Unremarkable. GASTROINTESTINAL TRACT: There is a new nasogastric tube in the stomach. The stomach is decompressed. There are dilated fluid-filled loops of small bowel. Small bowel appears slightly more dilated than seen on 03/22/2021 exam. The distal small bowel does not appear dilated. A transition zone is is not definitely identified. The appendix is not seen. There is stool in the colon. There is a new small amount of ascites in the abdomen and pelvis.. ABDOMINAL WALL: No significant hernia is appreciated. LYMPH NODES: Normal. VASCULAR: Unremarkable. PELVIC VISCERA: The uterus appears to have been removed. No pelvic mass is seen. OSSEOUS STRUCTURES: Unremarkable. CT/CT abdomen pelvis w con IMPRESSION: Worsening small bowel obstruction. The distal ileum is normal in caliber and again no definite transition zone is seen. New small amount of ascites. New patchy areas of atelectasis or small infiltrates at the lung bases.
--- NOTE | ~2021-03-22 | XR_ITS ---
EXAMINATION: XR ABDOMEN KUB CLINICAL INDICATION: Postop ileus COMPARISON: Previous CT of the abdomen and pelvis 03/24/2021 TECHNIQUE: AP view of the abdomen. FINDINGS: There is a paucity of bowel gas seen in the large bowel. There are dilated air-filled loops of small bowel. There are skin isaias. There is no evidence of free air. No calcifications are seen. Bony structures are unremarkable. XR/XR KUB IMPRESSION: Dilated loops of small bowel. Paucity of bowel gas in the large bowel. Differential would include postoperative ileus and obstruction.
--- NOTE | ~2021-03-22 | XR_ITS ---
EXAMINATION: XR CHEST CLINICAL INFORMATION: Cough COMPARISON: 08/19/2020 TECHNIQUE: Frontal view of the chest was obtained. FINDINGS: Hyperexpanded lungs. Linear left basilar atelectasis. No dense consolidation. No pleural effusion or pneumothorax. The cardiomediastinal silhouette is within normal limits. No acute osseous abnormality. XR/XR chest 1V IMPRESSION: Linear left basilar atelectasis. No dense consolidation.
--- NOTE | ~2021-03-22 | CT_ITS ---
EXAMINATION: CT ABDOMEN AND PELVIS WITHOUT CONTRAST CLINICAL INFORMATION: Severe diffuse abdominal pain COMPARISON: CT abdomen pelvis 07/15/2020 TECHNIQUE: Multidetector volumetric imaging was performed from the superior aspect of the liver through the pubic symphysis. Sagittal and coronal reformatted images were obtained on the technologist's workstation. This CT examination was performed using dose optimization techniques as appropriate, variously including the following: *Automated exposure control *Adjustment of mA and/or kV according to patient size (this includes techniques or standardized protocols for targeted exams where dose is matched to indication/reason for exam; i.e. extremities or head) *Use of iterative reconstruction technique DLP: 309 mGy-cm FINDINGS: Visualized lung bases demonstrate mild dependent atelectasis versus scarring. Stable 3 mm subpleural nodular density of the posterior lateral right lung base (image 8/21, series 6). The liver demonstrates normal size, contour and attenuation. The gallbladder is normal in appearance. The pancreas, spleen and adrenal glands are unremarkable. Symmetrically sized kidneys. 2 mm nonobstructing calculus within the midpole of the left kidney. No right-sided renal calculi. No hydronephrosis bilaterally. Small left renal cysts again demonstrated. The stomach is relatively decompressed. Loops of mid and distal small bowel are dilated, measuring up to 2.7 cm. The terminal ileum however appears normal in caliber. Transition zone is not definitively identified. Scattered air-fluid levels are present. Normal caliber loops of colon which demonstrate a normal stool burden. Normal caliber abdominal aorta. No gross retroperitoneal lymphadenopathy. The bladder is decompressed and therefore not accurately evaluated. Uterus is surgically absent. No gross free pelvic fluid. No inguinal lymphadenopathy. Mild diffuse degenerative changes of the spine. CT/CT abdomen pelvis wo con IMPRESSION: 1. Small bowel obstruction. The distal most aspect of the ileum appears normal in caliber although a definitive transition zone is not clearly identified. 2. Punctate nonobstructing left renal calculus. No hydronephrosis. 3. Left renal cyst.
--- NOTE | ~2021-03-22 | XR_ITS ---
EXAMINATION: XR ABDOMEN KUB CLINICAL INDICATION: Abdominal pain COMPARISON: 03/22/2021 TECHNIQUE: AP view of the abdomen. FINDINGS: Enteric tube terminates in the stomach with the side-port above the level of the gastroesophageal junction. Diffuse gas-filled small bowel prominence. Stool seen in the colon. No acute osseous abnormality. The lung bases are clear. XR/XR KUB IMPRESSION: Diffuse gas-filled prominence of small bowel again consistent with obstruction. Enteric tube terminates in the stomach with the side-port above the gastroesophageal junction. Suggest advancement.
--- NOTE | ~2021-03-22 | XR_ITS ---
EXAMINATION: XR CHEST CLINICAL INFORMATION: NG tube placement COMPARISON: Chest x-ray earlier this morning TECHNIQUE: Frontal view of the chest was obtained. FINDINGS: Interval placement of enteric tube with tip terminating over the left upper abdomen, and the expected location of the stomach. The heart is normal in size. The lungs remain well aerated without lobar consolidation. No pleural effusion or pneumothorax. XR/XR chest 1V IMPRESSION: Enteric tube in expected position.
--- NOTE | 2021-03-22 05:20 | ED_ITS ---
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 She denies any chest pain/palpitations, urinary pain/burning/frequency. Related Data Home Medications Medication Instructions Recorded Confirmed acetaminophen 500 mg capsule 500 mg PO Q6H PRN 04/30/20 12/29/20 albuterol sulfate 90 mcg/actuation 2 puff INHALATION Q4-6H PRN 04/30/20 12/29/20 aerosol inhaler (Ventolin HFA) amitriptyline 25 mg tablet 25 mg PO BEDTIME 04/30/20 12/29/20 bupropion HCl 150 mg 24 hr tablet, 150 mg PO DAILY 04/30/20 12/29/20 extended release (Wellbutrin XL) lidocaine 5 % topical patch 1 patch TOPICAL DAILY 04/30/20 12/29/20 (Lidoderm) omeprazole 20 mg tablet,delayed 20 mg PO DAILY 04/30/20 12/29/20 release ondansetron HCl 4 mg tablet 4 mg PO BID tab 04/30/20 12/29/20 (Zofran) sennosides 8.6 mg tablet (senna) 17.2 mg PO BEDTIME PRN tab 04/30/20 12/29/20 ibuprofen 600 mg tablet 1 tab PO BID 07/15/20 12/29/20 Previous Rx's Medication Instructions Recorded docusate sodium 100 mg capsule 200 mg PO BEDTIME #60 cap 06/09/20 (Colace) polyethylene glycol 3350 17 gram 17 g PO DAILY #30 ea 06/09/20 oral powder packet (Miralax) amoxicillin 500 mg-potassium 500 mg PO Q12H #8 tab 07/18/20 clavulanate 125 mg tablet oxycodone 5 mg tablet 5 mg PO Q6H PRN #10 tab 07/18/20 calcium citrate 250 mg PO BID 30 Days #60 tab 07/30/20 cholecalciferol (vitamin D3) 50 50 mcg PO DAILY 30 Days #30 cap 07/30/20 mcg (2,000 unit) capsule Allergies Allergy/AdvReac Type Severity Reaction Status Date / Time tramadol [TRAMADOL] Allergy Unknown NAUSEA & Verified 12/29/20 13:04 VOMITING Review of Systems Review of Systems Pertinent positives and negatives as stated in HPI 10 point review of systems is otherwise negative. Physical Exam Vital Signs: Vital Signs: Last Vital Signs Temp 98.7 F 03/22/21 05:15 Pulse 79 03/22/21 05:15 Resp 18 03/22/21 05:15 BP 151/59 H 03/22/21 05:15 Pulse Ox 98 03/22/21 05:15 Body Mass Index 17.9 VITAL SIGNS: Reviewed. GENERAL: Chronically ill, cachectic, moderate to severe distress. HEAD: Normocephalic/atraumatic EYES: PERRLA, EOMI OROPHARYNX: no oral lesions noted, posterior pharynx clear, dry mucosa NECK: Supple, no adenopathy LUNGS: Normal breath sounds. No adventitious sounds or accessory muscle use. SpO2<98> CARDIOVASCULAR: Regular rate and rhythm without noted murmurs ABDOMEN: Soft, diffusely tender with guarding, non-distended with bowel sounds. MUSCULOSKELETAL: No tenderness, deformities, or effusions noted on gross inspection. EXTREMITIES: No cyanosis, clubbing or edema. SKIN: Inspection of the skin reveals no rashes NEUROLOGIC: Alert and oriented x 4. Course Course Course Narrative: 56-year-old female with history and clinical presentation concerning for possible perforation, SBO, diverticulitis. Patient medicated, labs, CT ordered. Signed out to Dr Gilman. [facility] [place] - Abdominal Pain Lab Data Result diagrams: 03/22/21 05:25 03/22/21 05:25 Labs: Lab Results 03/22/21 03/22/21 03/22/21 Range/Units 05:25 05:25 05:25 WBC 11.5 H (4.8-10.8) X10*3/uL RBC 4.47 (4.20-5.50) X10*6/uL Hgb 14.5 (12.0-16.0) g/dl Hct 42.1 (37.0-47.0) % MCV 94.2 (80.0-98.0) fL MCH 32.4 (27.0-33.0) pg MCHC 34.4 (31.0-35.0) g/dl RDW 11.9 (11.0-16.0) % Plt Count 316 (160-400) X10*3/uL MPV 9.5 (9.4-12.3) fL Immature Gran % (Auto) 0.3 (0.0-0.4) % Neut % (Auto) 80.2 H (45-73) % Lymph % (Auto) 13.2 L (20-40) % [place] % (Auto) 5.1 (2-11) % Eos % (Auto) 0.8 (0-4) % Baso % (Auto) 0.4 (0-2) % Lymph # (Auto) 1.5 (1.2-4.9) X10*3/uL [place] # (Auto) 0.6 (0.1-1.2) X10*3/uL Eos # (Auto) 0.1 (0.0-0.4) X10*3/uL Baso # (Auto) 0.1 (0.0-0.2) X10*3/uL Abs Immat Gran (auto) 0.04 H (0.00-0.03) X10*3/uL Absolute Neuts (auto) 9.2 H (2.0-8.3) x10*3/uL Absolute Nucleated RBC 0.000 (0.0-0.012) X10*3/uL Nucleated RBC % (auto) 0.0 (0.0-0.2) /100WBC PT (9.9-13.0) SEC INR (0.9-1.1) Sodium 138 (135-145) mmol/L Potassium 4.4 D (3.3-5.1) mmol/L Chloride 100 (96-108) mmol/L Carbon Dioxide 23 (22-29) mmol/L Anion Gap 19 (12-20) BUN 11 (9-16) mg/dL Creatinine 0.77 (0.5-1.4) mg/dL Estim Creat Clear Calc 64.4 Estimated GFR > 60 Random Glucose 169 H (60-115) mg/dL Lactic Acid 1.9 (0.5-2.0) mmol/L Calcium 10.5 H D (8.4-10.2) mg/dL Total Bilirubin 0.7 (0.0-1.0) mg/dL AST 29 (5-31) U/L ALT 19 (0-31) U/L Alkaline Phosphatase 79 (39-117) U/L Total Protein 8.0 D (6.5-8.0) g/dL Albumin 4.9 (3.5-5.0) g/dL Lipase 16 (8-78) U/L COVID-19 ([facility]) (Negative) COVID-19 Clin Com 03/22/21 03/22/21 Range/Units 05:43 05:43 WBC (4.8-10.8) X10*3/uL RBC (4.20-5.50) X10*6/uL Hgb (12.0-16.0) g/dl Hct (37.0-47.0) % MCV (80.0-98.0) fL MCH (27.0-33.0) pg MCHC (31.0-35.0) g/dl RDW (11.0-16.0) % Plt Count (160-400) X10*3/uL MPV (9.4-12.3) fL Immature Gran % (Auto) (0.0-0.4) % Neut % (Auto) (45-73) % Lymph % (Auto) (20-40) % [place] % (Auto) (2-11) % Eos % (Auto) (0-4) % Baso % (Auto) (0-2) % Lymph # (Auto) (1.2-4.9) X10*3/uL [place] # (Auto) (0.1-1.2) X10*3/uL Eos # (Auto) (0.0-0.4) X10*3/uL Baso # (Auto) (0.0-0.2) X10*3/uL Abs Immat Gran (auto) (0.00-0.03) X10*3/uL Absolute Neuts (auto) (2.0-8.3) x10*3/uL Absolute Nucleated RBC (0.0-0.012) X10*3/uL Nucleated RBC % (auto) (0.0-0.2) /100WBC PT 11.4 (9.9-13.0) SEC INR 1.0 (0.9-1.1) Sodium (135-145) mmol/L Potassium (3.3-5.1) mmol/L Chloride (96-108) mmol/L Carbon Dioxide (22-29) mmol/L Anion Gap (12-20) BUN (9-16) mg/dL Creatinine (0.5-1.4) mg/dL Estim Creat Clear Calc Estimated GFR Random Glucose (60-115) mg/dL Lactic Acid (0.5-2.0) mmol/L Calcium (8.4-10.2) mg/dL Total Bilirubin (0.0-1.0) mg/dL AST (5-31) U/L ALT (0-31) U/L Alkaline Phosphatase (39-117) U/L Total Protein (6.5-8.0) g/dL Albumin (3.5-5.0) g/dL Lipase (8-78) U/L COVID-19 ([facility]) Negative (Negative) COVID-19 Clin Com See Note Discharge Plan Discharge Clinical Impression: Abdominal pain Patient Disposition: Still a Patient Prescriptions: No Action ibuprofen 600 mg tablet 1 tab PO BID RF: 0 amoxicillin-pot clavulanate 500-125 mg Tablet 500 mg PO Q12H Qty: 8 RF: 0 oxycodone 5 mg tablet 5 mg PO Q6H PRN (Reason: pain) Qty: 10 RF: 0 cholecalciferol (vitamin D3) 50 mcg (2,000 unit) capsule 50 mcg PO DAILY 30 Days Qty: 30 RF: 11 calcium citrate 250 mg calcium tablet 250 mg PO BID 30 Days Qty: 60 RF: 11 polyethylene glycol 3350 [Miralax] 17 gram powder in packet 17 g PO DAILY Qty: 30 RF: 5 docusate sodium [Colace] 100 mg capsule 200 mg PO BEDTIME Qty: 60 RF: 5 ondansetron HCl [Zofran] 4 mg tablet 4 mg PO BID RF: 0 amitriptyline 25 mg tablet 25 mg PO BEDTIME RF: 0 lidocaine [Lidoderm] 5 % adhesive patch,medicated 1 patch topical DAILY RF: 0 sennosides [senna] 8.6 mg tablet 17.2 mg PO BEDTIME PRN (Reason: Constipation) RF: 0 acetaminophen 500 mg capsule 500 mg PO Q6H PRN (Reason: Pain) RF: 0 bupropion HCl [Wellbutrin XL] 150 mg tablet extended release 24 hr 150 mg PO DAILY RF: 0 omeprazole 20 mg tablet,delayed release (DR/EC) 20 mg PO DAILY RF: 0 albuterol sulfate [Ventolin HFA] 90 mcg/actuation HFA aerosol inhaler 2 puff inhalation Q4-6H PRN (Reason: Shortness Of Breath) RF: 0 PMFSH Past Medical History Source: nursing notes reviewed Medical History Abdominal adhesions Abdominal pain Acid reflux Chronic constipation Colitis Fibromyalgia Lupus Migraines Osteoarthritis Osteoporosis Pulmonary nodules Vitamin D deficiency Surgical History H/O elbow surgery History of hysterectomy with oophorectomy History of removal of ovarian cyst Hx of appendectomy Hx of colonoscopy Hx of tonsillectomy Family History Family History Father Fibromyalgia Osteoporosis Mother Stroke Social History Social History Household Members: Family Do you presently have visiting nurse or other home services: No Alcohol intake: never Patient Tobacco Use Status: Current everyday Tobacco user Cigarette Packs Per Day: 0.5 Cigarettes Per Day: 6 Years Smoked: 23 Advance Directives: No Advance Directives Information Provided: No service: No Current occupational status: disabled
[2021-03-22] MEDS: ondansetron HCL 4 MG/2 ML VIAL IVPUSH ×3 (05:27→17:19)
[2021-03-22] MEDS: fentaNYL citrate/PF 100 MCG/2 ML VIAL 25 MCG IVPUSH (05:27)
[2021-03-22] MEDS: Ketorolac Tromethamine 15 MG/ML VIAL IVPUSH (05:27)
[2021-03-22 05:30] LABS: MANUAL DIFF FLAG NO
[2021-03-22 05:32] LABS: Basophils Absolute Auto 0.1 X10*3/uL (0.0-0.2); Basophils Percent Auto 0.4 % (0-2); Eosinophils Absolute Auto 0.1 X10*3/uL (0.0-0.4); Eosinophils Percent Auto 0.8 % (0-4); Hematocrit 42.1 % (37.0-47.0); Hemoglobin 14.5 g/dl (12.0-16.0); Imm Gran Abs Auto 0.04 X10*3/uL (0.00-0.03); Imm Gran Pct Auto 0.3 % (0.0-0.4); Lymphocytes Absolute Auto 1.5 X10*3/uL (1.2-4.9); Lymphocytes Percent Auto 13.2 % (20-40); Mean Corpuscular HGB Conc 34.4 g/dl (31.0-35.0); Mean Corpuscular Hemoglobin 32.4 pg (27.0-33.0); Mean Corpuscular Volume 94.2 fL (80.0-98.0); Mean Platelet Volume 9.5 fL (9.4-12.3); Monocytes Absolute Auto 0.6 X10*3/uL (0.1-1.2); Monocytes Percent Auto 5.1 % (2-11); Neutrophils Absolute Auto 9.2 x10*3/uL (2.0-8.3); Neutrophils Percent Auto 80.2 % (45-73); Platelet Count 316 X10*3/uL (160-400); Red Blood Count 4.47 X10*6/uL (4.20-5.50); Red Cell Distribution Width 11.9 % (11.0-16.0); White Blood Count 11.5 X10*3/uL (4.8-10.8)
[2021-03-22 05:43] LABS: Lactic Acid 1.9 mmol/L (0.5-2.0)
[2021-03-22 05:50] LABS: Alanine Aminotransferase 19 U/L (0-31); Albumin Level 4.9 g/dL (3.5-5.0); Alkaline Phosphatase 79 U/L (39-117); Anion Gap 19 (12-20); Aspartate Amino Transferase 29 U/L (5-31); Bilirubin Total 0.7 mg/dL (0.0-1.0); Blood Urea Nitrogen 11 mg/dL (9-16); Calcium 10.5 mg/dL (8.4-10.2); Carbon Dioxide 23 mmol/L (22-29); Chloride 100 mmol/L (96-108); Creatinine Clr Calc Pharmacy 64.4; Estimated Glomerular Filt Rate > 60; Glucose Random 169 mg/dL (60-115); Lipase 16 U/L (8-78); Potassium 4.4 mmol/L (3.3-5.1); Sodium 138 mmol/L (135-145)
[2021-03-22 05:57] LABS: Prothrombin Time 11.4 SEC (9.9-13.0)
[2021-03-22 06:04] LABS: COVID-19 Test Negative (Negative); IDNOW Serial# 9DD0AD1C
[2021-03-22] MEDS: HYDROmorphone HCl 0.5 MG/0.5 ML SYRINGE IVPUSH ×3 (07:44→22:05)
[2021-03-22] MEDS: Lidocaine HCl 4 % MPF w/MADgic 5 ML AMPUL 1 APPL TOPICAL (08:03)
[2021-03-22] MEDS: LORazepam 2 MG/ML VIAL 1 MG IVPUSH (08:03)
[2021-03-22] MEDS: cefTRIAXone sodium 1 GM in 0.9 % Sodium Chloride 50 ML IV (08:06)
[2021-03-22] MEDS: 0.9 % Sodium Chloride 1,000 ML 999 ML IVCONT (08:07)
--- NOTE | 2021-03-22 08:28 | PC.NURSE ---
size 14 NG placed in right nare. Pt tolerated well the second time after medication. Air heard in stomach. chest xray ordered at this time. vss.
--- NOTE | 2021-03-22 10:33 | PHA.MEDREC ---
Pharmacy Consult ? Medication Reconciliation Pharmacy has completed the medication reconciliation.
[2021-03-22] MEDS: Famotidine/PF 20 MG/2 ML VIAL IVPUSH (12:08)
[2021-03-22] MEDS: Morphine Sulfate 4 MG/ML CARTRIDGE 2 MG IVPUSH ×2 (12:08→17:20)
[2021-03-22] MEDS: Enoxaparin Sodium 40 MG/0.4 ML SYRINGE SUBCUT (12:08)
--- NOTE | 2021-03-22 12:29 | PM.HPGS ---
History of Present Illness History of Present Illness Date of Service: 03/22/21 Chief complaint: Small-bowel obstruction Narrative: Leda Curtis is a 56 year old female who presented to the emergency department early today with complaints of diffuse abdominal pain nausea and vomiting that had started yesterday. Workup in the emergency department was consistent with small-bowel obstruction. She received Ativan prior to insertion of NG tube and by report has been moderately sedated since that time. I have seen her twice this morning. On both occasions, she has been arousable, but trips back to sleep very easily. On the 2nd occasion, I was accompanied by the hospital court interpreter. The patient reports a history of multiple abdominal procedures and a history of significant constipation. Her last bowel movement was about 2 weeks ago. She reports at least 1 prior episode of similar pain and says that it was not as severe at that time. She reported to Dr. Gilman that she had undergone lysis of adhesions in the past. Because of her level of sedation, it has been difficult to obtain any information from her regarding her history, and a portion of the following information has been taken from the record and from discussion with Dr. Gilman. In the emergency department, laboratory studies were obtained. White blood count was slightly elevated at 11.5. Electrolytes, BUN creatinine were normal. She has a past history of appendectomy, hysterectomy and laparotomy for treatment of ovarian cyst. CT scan of the abdomen and pelvis was obtained in the emergency department and demonstrated: MPRESSION: 1.? Small bowel obstruction. The distal most aspect of the ileum appears normal in caliber although a definitive transition zone is not clearly identified. 2.? Punctate nonobstructing left renal calculus. No hydronephrosis. 3.? Left renal cyst. Dictated By: JUAN MENDEZ MD Signed By: <Electronically signed by JUAN MENDEZ MD in OV> 03/22/21 0711 DD/ 0519 TD/TT:? Activities Aide: Review of Systems Review of Systems: Yes Unobtainable due to mental condition [facility] Past Medical History Medical History Abdominal adhesions Abdominal pain Acid reflux Chronic constipation Colitis Fibromyalgia Lupus Migraines Osteoarthritis Osteoporosis Pulmonary nodules Vitamin D deficiency Family History Family History Father Fibromyalgia Osteoporosis Mother Stroke Surgical History Surgical History H/O elbow surgery History of hysterectomy with oophorectomy History of removal of ovarian cyst Hx of appendectomy Hx of colonoscopy Hx of tonsillectomy Social History Social History Household Members: Family Do you presently have visiting nurse or other home services: No Alcohol intake: never Patient Tobacco Use Status: Current everyday Tobacco user Cigarette Packs Per Day: 0.5 Cigarettes Per Day: 6 Years Smoked: 23 Advance Directives: No Advance Directives Information Provided: No service: No Current occupational status: disabled Meds Allergies Allergy/AdvReac Type Severity Reaction Status Date / Time tramadol [TRAMADOL] Allergy Unknown NAUSEA & Verified 12/29/20 13:04 VOMITING Active Medications: Current Medications Albuterol Sulfate (Albuterol Sulfate 90 Mcg 8 Gm Inhaler) 2 puff INHALE Q4H PRN PRN Reason: Shortness Of Breath Amitriptyline HCl (Amitriptyline Hcl 25 Mg Tablet) 25 mg PO BEDTIME [facility] Bupropion HCl (Bupropion Hcl Xl 150 Mg Tab.Er.24h) 150 mg PO DAILY [facility] Enoxaparin Sodium (Enoxaparin Sodium 40 Mg/0.4 Ml Syringe) 40 mg SUBCUT Q24H [facility] Last Admin: 03/22/21 12:08 Dose: 40 mg Documented by: Famotidine (Famotidine/Pf 20 Mg/2 Ml Vial) 20 mg IVPUSH Q12H [facility] Last Admin: 03/22/21 12:08 Dose: 20 mg Documented by: Potassium Chloride/Dextrose/Sod Cl () 20 meq in 1,000 mls @ 100 mls/hr IVCONT .Q10H [facility] Morphine Sulfate (Morphine Sulfate 4 Mg/Ml Cartridge) 2 mg IVPUSH Q3H PRN; Protocol PRN Reason: Pain, severe Last Admin: 03/22/21 12:08 Dose: 2 mg Documented by: Nicotine (Nicotine 21 Mg Patch.Td24) 21 mg TRANSDERMA DAILY [facility] Ondansetron HCl (Ondansetron Hcl 4 Mg/2 Ml Vial) 4 mg IVPUSH Q8H PRN PRN Reason: Nausea Last Admin: 03/22/21 11:41 Dose: 4 mg Documented by: Pharmacy Consult (Consult Rx Perform Med Rec) 1 each MISCELLANE ONCE PRN PRN Reason: Consult order Trazodone HCl (Trazodone Hcl 50 Mg Tablet) 50 mg PO BEDTIME [facility] Home Medications Medication Instructions Recorded Confirmed Last Taken Type albuterol sulfate 90 mcg/actuation 2 puff INHALATION Q4-6H PRN 04/30/20 03/22/21 Unknown History aerosol inhaler (Ventolin HFA) amitriptyline 25 mg tablet 25 mg PO BEDTIME 04/30/20 03/22/21 Unknown History bupropion HCl 150 mg 24 hr tablet, 150 mg PO DAILY 04/30/20 03/22/21 Unknown History extended release (Wellbutrin XL) lidocaine 5 % topical patch 2 patch TOPICAL DAILY 04/30/20 03/22/21 Unknown History (Lidoderm) omeprazole 20 mg tablet,delayed 20 mg PO BID 04/30/20 03/22/21 07/14/20 07:40 History release 20 mg sennosides 8.6 mg tablet (senna) 17.2 mg PO BEDTIME PRN tab 04/30/20 03/22/21 Unknown History nicotine 21 mg/24 hr daily 1 patch TOPICAL DAILY 03/22/21 03/22/21 Unknown History transdermal patch trazodone 50 mg tablet 1 tab PO BEDTIME 03/22/21 03/22/21 Unknown History Physical Exam Vital Signs: Vital Signs: Last Vital Signs Temp 98.7 F 03/22/21 05:15 Pulse 80 03/22/21 10:20 Resp 18 03/22/21 05:15 BP 151/59 H 03/22/21 05:15 Pulse Ox 97 03/22/21 10:20 Body Mass Index 17.9 Const: Other: Somnolent but arousable, appears uncomfortable when awake HENMT: Head: Yes normocephalic and Yes atraumatic Neck: Neck: Yes trachea midline and Yes supple Resp: Effort & Inspection: normal respiratory effort Auscultation: clear to auscultation bilaterally Cardio: Rate: regular rate Rhythm: regular rhythm Skin: General skin exam: no rashes or lesions noted Extrem: General: Yes normal to inspection Results Results Labs: Short CBC 03/22/21 Range/Units 05:25 WBC 11.5 H (4.8-10.8) X10*3/uL Hgb 14.5 (12.0-16.0) g/dl Hct 42.1 (37.0-47.0) % Plt Count 316 (160-400) X10*3/uL BMP 03/22/21 05:25 Sodium 138 Potassium 4.4 D Chloride 100 Carbon Dioxide 23 BUN 11 Creatinine 0.77 Calcium 10.5 H D Liver Function 03/22/21 Range/Units 05:25 Total Bilirubin 0.7 (0.0-1.0) mg/dL AST 29 (5-31) U/L ALT 19 (0-31) U/L Alkaline Phosphatase 79 (39-117) U/L Albumin 4.9 (3.5-5.0) g/dL Abdomen CT scan report/results: report reviewed and image reviewed CT scan - pelvis: report reviewed and image reviewed Assessment and Plan (1) Small bowel obstruction: Status: Acute (2) Abdominal pain: Status: Acute 56-year-old female presenting with nausea, vomiting and abdominal pain and CT findings consistent with small-bowel obstruction. NG tube has been placed. She will be kept NPO and on IV fluids. Further plans will be made depending upon her clinical progress. Quality Stroke Does the patient have a stroke diagnosis?: No VTE Prior VTE?: No VTE Risk Level:: Surgical - moderate VTE Device Contraindication: Treatment Not Indicated VTE Drug Contraindication: N/A - Med Ordered Procedures Date of Service Date of Service: 03/22/21
[2021-03-22] MEDS: KCl 20 mEq in 5% Dex/0.45% Sod 20 MEQ/1,000 ML IV.SOLN 100 MEQ IVCONT ×2 (12:45→23:16)
[2021-03-22] MEDS: Morphine Sulfate 2 MG/ML CARTRIDGE IVPUSH (14:01)
[2021-03-22] MEDS: Piperacillin Sodium/Tazobactam 3.375 GM in 0.9 % Sodium Chloride 50 ML IV ×2 (15:52→22:52)
--- NOTE | 2021-03-22 16:01 | PC.NURSE ---
pt awake and complaining of pain. md made aware.
[2021-03-22 16:26] LABS: MANUAL DIFF FLAG NO
[2021-03-22 16:31] LABS: Basophils Percent Auto 0.2 % (0-2); Eosinophils Percent Auto 0.2 % (0-4); Hematocrit 38.9 % (37.0-47.0); Hemoglobin 13.8 g/dl (12.0-16.0); Imm Gran Abs Auto 0.03 X10*3/uL (0.00-0.03); Imm Gran Pct Auto 0.2 % (0.0-0.4); Lymphocytes Absolute Auto 0.7 X10*3/uL (1.2-4.9); Lymphocytes Percent Auto 5.7 % (20-40); Mean Corpuscular HGB Conc 35.5 g/dl (31.0-35.0); Mean Corpuscular Hemoglobin 33.3 pg (27.0-33.0); Mean Corpuscular Volume 93.7 fL (80.0-98.0); Mean Platelet Volume 9.6 fL (9.4-12.3); Monocytes Absolute Auto 0.7 X10*3/uL (0.1-1.2); Monocytes Percent Auto 5.4 % (2-11); Neutrophils Absolute Auto 11.2 x10*3/uL (2.0-8.3); Neutrophils Percent Auto 88.3 % (45-73); Platelet Count 262 X10*3/uL (160-400); Red Blood Count 4.15 X10*6/uL (4.20-5.50); Red Cell Distribution Width 12.2 % (11.0-16.0); White Blood Count 12.7 X10*3/uL (4.8-10.8)
[2021-03-22 16:44] LABS: Lactic Acid 0.6 mmol/L (0.5-2.0)
[2021-03-22 17:01] LABS: Anion Gap 12 (12-20); Blood Urea Nitrogen 11 mg/dL (9-16); Calcium 8.8 mg/dL (8.4-10.2); Carbon Dioxide 26 mmol/L (22-29); Chloride 105 mmol/L (96-108); Creatinine Clr Calc Pharmacy 71.9; Estimated Glomerular Filt Rate > 60; Glucose Fasting 133 mg/dL (60-99); Potassium 3.9 mmol/L (3.3-5.1); Sodium 139 mmol/L (135-145)
--- NOTE | 2021-03-22 17:20 | P.EN_ITS ---
Event Note Date of Service: 03/22/21 Event Note: More alert. Seen with the paper tube machine operator. Continues to complain of diffuse stabbing abdominal pain present since yesterday. Says that the pain medicine helps. She is able to sleep, but that the pain comes back when she is awake. Abdomen is moderately distended, not firm, moderate diffuse tenderness, no rebound Short CBC 03/22/21 03/22/21 Range/Units 05:25 16:18 WBC 11.5 H 12.7 H (4.8-10.8) X10*3/uL Hgb 14.5 13.8 (12.0-16.0) g/dl Hct 42.1 38.9 (37.0-47.0) % Plt Count 316 262 (160-400) X10*3/uL BMP 03/22/21 03/22/21 05:25 16:18 Sodium 138 139 Potassium 4.4 D 3.9 Chloride 100 105 Carbon Dioxide 23 26 BUN 11 11 Creatinine 0.77 0.69 Calcium 10.5 H D 8.8 D Liver Function 03/22/21 Range/Units 05:25 Total Bilirubin 0.7 (0.0-1.0) mg/dL AST 29 (5-31) U/L ALT 19 (0-31) U/L Alkaline Phosphatase 79 (39-117) U/L Albumin 4.9 (3.5-5.0) g/dL Lactic acid 0.6 Impression: Small-bowel obstruction. Will adjust pain medication, continue NPO, NG suction. One of 2 blood cultures positive. Zosyn initiated.
--- NOTE | 2021-03-22 22:03 | PC.NURSE ---
pt c/o nausea and 10/10 abdominal and back pain Hospitalist notified per hospitalist, ok to give next dose of Dilaudid at this time
[2021-03-23] VITALS (10 sets, daily range): BP systolic 113–160; BP diastolic 61–70; PULSE 75–86; RESP 16–20; TEMP 36.4–36.8; O2SAT 95–96
[2021-03-23] MEDS: Famotidine/PF 20 MG/2 ML VIAL IVPUSH ×2 (00:20→12:27)
[2021-03-23] MEDS: HYDROmorphone HCl 0.5 MG/0.5 ML SYRINGE IVPUSH ×9 (01:07→22:02)
[2021-03-23] MEDS: Piperacillin Sodium/Tazobactam 3.375 GM in 0.9 % Sodium Chloride 50 ML IV ×4 (04:35→21:56)
--- NOTE | 2021-03-23 04:40 | PC.NURSE ---
suction canister emptied and changed by this RN 800cc of dark brown emesis emptied from canister hospitalist notified
[2021-03-23 05:28] LABS: GASOB Int Neg Ctl Valid YES; GASOB Int Pos Ctl Valid YES; Occult Blood Gastric POS (NEG)
[2021-03-23 05:39] LABS: MANUAL DIFF FLAG NO
--- NOTE | 2021-03-23 05:41 | PM.EVENT ---
Event Note Date of Service: 03/30/21 Event Note: coffee ground Gastric contents: Guaiac positive; IV PPI; CBC ordered. GI consult
[2021-03-23 05:44] LABS: Basophils Percent Auto 0.5 % (0-2); Eosinophils Percent Auto 0.5 % (0-4); Hematocrit 39.3 % (37.0-47.0); Hemoglobin 13.9 g/dl (12.0-16.0); Imm Gran Abs Auto 0.01 X10*3/uL (0.00-0.03); Imm Gran Pct Auto 0.1 % (0.0-0.4); Lymphocytes Absolute Auto 0.7 X10*3/uL (1.2-4.9); Lymphocytes Percent Auto 8.7 % (20-40); Mean Corpuscular HGB Conc 35.4 g/dl (31.0-35.0); Mean Corpuscular Hemoglobin 33.4 pg (27.0-33.0); Mean Corpuscular Volume 94.5 fL (80.0-98.0); Mean Platelet Volume 9.7 fL (9.4-12.3); Monocytes Absolute Auto 1.1 X10*3/uL (0.1-1.2); Monocytes Percent Auto 14.2 % (2-11); Neutrophils Absolute Auto 5.8 x10*3/uL (2.0-8.3); Platelet Count 253 X10*3/uL (160-400); Red Blood Count 4.16 X10*6/uL (4.20-5.50); Red Cell Distribution Width 12.1 % (11.0-16.0); White Blood Count 7.7 X10*3/uL (4.8-10.8)
[2021-03-23 06:06] LABS: Anion Gap 13 (12-20); Blood Urea Nitrogen 8 mg/dL (9-16); Calcium 8.6 mg/dL (8.4-10.2); Carbon Dioxide 26 mmol/L (22-29); Chloride 105 mmol/L (96-108); Estimated Glomerular Filt Rate > 60; Glucose Fasting 160 mg/dL (60-99); Potassium 4.5 mmol/L (3.3-5.1); Sodium 139 mmol/L (135-145)
[2021-03-23] MEDS: ondansetron HCL 4 MG/2 ML VIAL IVPUSH (06:41)
--- NOTE | 2021-03-23 07:16 | PC.NURSE ---
ngt advances per md order
[2021-03-23] MEDS: KCl 20 mEq in 5% Dex/0.45% Sod 20 MEQ/1,000 ML IV.SOLN 100 MEQ IVCONT ×2 (07:54→18:31)
[2021-03-23] MEDS: Pantoprazole Sodium 40 MG/10 ML VIAL IVPUSH ×2 (07:54→16:48)
[2021-03-23] MEDS: Nicotine 21 MG PATCH.TD24 TRANSDERMA (08:01)
[2021-03-23] MEDS: buPROPion HCl XL 150 MG TAB.ER.24H PO (08:01)
--- NOTE | 2021-03-23 08:13 | P.PNGS_ITS ---
Subjective Subjective Date of Service: 03/23/21 Interval history: Still complaining abdominal pain, although says that this is better Asking for morphine NG tube in place No reported nausea or vomiting Also complains of back pain Physical Exam Vital Signs: Vital Signs: Last Vital Signs Temp 98.7 F 03/22/21 05:15 Pulse 75 03/23/21 06:11 Resp 16 03/23/21 08:01 BP 113/64 03/23/21 06:11 Pulse Ox 96 03/23/21 06:11 Body Mass Index 17.9 Const: Other: Was asleep but woke up easily General: no acute distress Resp: Effort & Inspection: normal respiratory effort Cardio: Rate: regular rate GI: Other: Distended but soft, no guarding rebound, mild diffuse tenderness Objective Data Active Medications Albuterol Sulfate (Albuterol Sulfate 90 Mcg 8 Gm Inhaler) 2 puff INHALE Q4H PRN PRN Reason: Shortness Of Breath Amitriptyline HCl (Amitriptyline Hcl 25 Mg Tablet) 25 mg PO BEDTIME [facility] Last Admin: 03/22/21 22:10 Dose: Not Given Documented by: KEVIN Non-Admin Reason: NPO Bupropion HCl (Bupropion Hcl Xl 150 Mg Tab.Er.24h) 150 mg PO DAILY [facility] Last Admin: 03/23/21 08:01 Dose: 150 mg Documented by: BETY Enoxaparin Sodium (Enoxaparin Sodium 40 Mg/0.4 Ml Syringe) 40 mg SUBCUT Q24H [facility] Last Admin: 03/22/21 12:08 Dose: 40 mg Documented by: CHUCK Famotidine (Famotidine/Pf 20 Mg/2 Ml Vial) 20 mg IVPUSH Q12H [facility] Last Admin: 03/23/21 00:20 Dose: 20 mg Documented by: KEVIN Hydromorphone HCl (Hydromorphone Hcl 0.5 Mg/0.5 Ml Syringe) 0.5 mg IVPUSH Q3H PRN; Protocol PRN Reason: Pain, Severe (Pain Scale 7-10) Last Admin: 03/23/21 08:01 Dose: 0.5 mg Documented by: BETY Potassium Chloride/Dextrose/Sod Cl () 20 meq in 1,000 mls @ 100 mls/hr IVCONT .Q10H [facility] Last Admin: 03/23/21 07:54 Dose: 100 mls/hr Documented by: BETY Piperacillin Sod/Tazobactam (Sod 3.375 gm/ Sodium Chloride) 50 mls @ 100 mls/hr IV Q6H [facility] Last Admin: 03/23/21 08:01 Dose: 100 mls/hr Documented by: BETY Nicotine (Nicotine 21 Mg Patch.Td24) 21 mg TRANSDERMA DAILY [facility] Last Admin: 03/23/21 08:01 Dose: 21 mg Documented by: BETY Ondansetron HCl (Ondansetron Hcl 4 Mg/2 Ml Vial) 4 mg IVPUSH Q8H PRN PRN Reason: Nausea Last Admin: 03/23/21 06:41 Dose: 4 mg Documented by: KEVIN Pantoprazole Sodium (Pantoprazole Sodium 40 Mg/10 Ml Vial) 40 mg IVPUSH BID@0630,1630 [facility] Last Admin: 03/23/21 07:54 Dose: 40 mg Documented by: BETY Pharmacy Consult (Consult Rx Perform Med Rec) 1 each MISCELLANE ONCE PRN PRN Reason: Consult order Trazodone HCl (Trazodone Hcl 50 Mg Tablet) 50 mg PO BEDTIME [facility] Last Admin: 03/22/21 22:10 Dose: Not Given Documented by: KEVIN Non-Admin Reason: NPO Labs CBC & Chem 7: 03/23/21 05:29 03/23/21 05:29 Labs: Laboratory Results - last 24 hr 03/22/21 03/22/21 03/22/21 16:18 16:18 16:18 MCV 93.7 MCH 33.3 H MCHC 35.5 H RDW 12.2 Plt Count 262 MPV 9.6 Immature Gran % (Auto) 0.2 Neut % (Auto) 88.3 H Lymph % (Auto) 5.7 L [place] % (Auto) 5.4 Eos % (Auto) 0.2 Baso % (Auto) 0.2 Lymph # (Auto) 0.7 L [place] # (Auto) 0.7 Eos # (Auto) 0.0 Baso # (Auto) 0.0 Abs Immat Gran (auto) 0.03 Absolute Neuts (auto) 11.2 H Absolute Nucleated RBC 0.000 Nucleated RBC % (auto) 0.0 Anion Gap 12 Estim Creat Clear Calc 71.9 Estimated GFR > 60 Fasting Glucose 133 H Lactic Acid 0.6 Calcium 8.8 D Gastric Occult Blood Blood Type Antibody Screen 03/22/21 03/23/21 03/23/21 17:48 05:13 05:29 MCV MCH MCHC RDW Plt Count MPV Immature Gran % (Auto) Neut % (Auto) Lymph % (Auto) [place] % (Auto) Eos % (Auto) Baso % (Auto) Lymph # (Auto) [place] # (Auto) Eos # (Auto) Baso # (Auto) Abs Immat Gran (auto) Absolute Neuts (auto) Absolute Nucleated RBC Nucleated RBC % (auto) Anion Gap 13 Estim Creat Clear Calc 68.0 Estimated GFR > 60 Fasting Glucose 160 H Lactic Acid Calcium 8.6 Gastric Occult Blood POS H Blood Type O Positive Antibody Screen NEGATIVE 03/23/21 05:29 MCV 94.5 MCH 33.4 H MCHC 35.4 H RDW 12.1 Plt Count 253 MPV 9.7 Immature Gran % (Auto) 0.1 Neut % (Auto) 76.0 H Lymph % (Auto) 8.7 L [place] % (Auto) 14.2 H Eos % (Auto) 0.5 Baso % (Auto) 0.5 Lymph # (Auto) 0.7 L [place] # (Auto) 1.1 Eos # (Auto) 0.0 Baso # (Auto) 0.0 Abs Immat Gran (auto) 0.01 Absolute Neuts (auto) 5.8 Absolute Nucleated RBC 0.000 Nucleated RBC % (auto) 0.0 Anion Gap Estim Creat Clear Calc Estimated GFR Fasting Glucose Lactic Acid Calcium Gastric Occult Blood Blood Type Antibody Screen Microbiology Microbiology Results: Microbiology 03/22/21 05:43 Blood Culture - Preliminary Blood - Venous No growth after 24 hours. 03/22/21 05:43 Blood Culture - Preliminary Blood - Venous Procedures Date of Service Date of Service: 03/23/21 Progress Note: A&P Assessment and plan (1) Small bowel obstruction: Status: Acute Assessment and Plan: Still with some pain Keep NG tube in to low wall suction IV hydration Pain management Await flatus Labs okay today Will monitor abdomen closely Fall Risk Details Current Medications: Current Medications Albuterol Sulfate (Albuterol Sulfate 90 Mcg 8 Gm Inhaler) 2 puff INHALE Q4H PRN PRN Reason: Shortness Of Breath Amitriptyline HCl (Amitriptyline Hcl 25 Mg Tablet) 25 mg PO BEDTIME [facility] Last Admin: 03/22/21 22:10 Dose: Not Given Documented by: Bupropion HCl (Bupropion Hcl Xl 150 Mg Tab.Er.24h) 150 mg PO DAILY [facility] Last Admin: 03/23/21 08:01 Dose: 150 mg Documented by: Enoxaparin Sodium (Enoxaparin Sodium 40 Mg/0.4 Ml Syringe) 40 mg SUBCUT Q24H [facility] Last Admin: 03/22/21 12:08 Dose: 40 mg Documented by: Famotidine (Famotidine/Pf 20 Mg/2 Ml Vial) 20 mg IVPUSH Q12H [facility] Last Admin: 03/23/21 00:20 Dose: 20 mg Documented by: Hydromorphone HCl (Hydromorphone Hcl 0.5 Mg/0.5 Ml Syringe) 0.5 mg IVPUSH Q3H PRN; Protocol PRN Reason: Pain, Severe (Pain Scale 7-10) Last Admin: 03/23/21 08:01 Dose: 0.5 mg Documented by: Potassium Chloride/Dextrose/Sod Cl () 20 meq in 1,000 mls @ 100 mls/hr IVCONT .Q10H [facility] Last Admin: 03/23/21 07:54 Dose: 100 mls/hr Documented by: Piperacillin Sod/Tazobactam (Sod 3.375 gm/ Sodium Chloride) 50 mls @ 100 mls/hr IV Q6H [facility] Last Admin: 03/23/21 08:01 Dose: 100 mls/hr Documented by: Nicotine (Nicotine 21 Mg Patch.Td24) 21 mg TRANSDERMA DAILY [facility] Last Admin: 03/23/21 08:01 Dose: 21 mg Documented by: Ondansetron HCl (Ondansetron Hcl 4 Mg/2 Ml Vial) 4 mg IVPUSH Q8H PRN PRN Reason: Nausea Last Admin: 03/23/21 06:41 Dose: 4 mg Documented by: Pantoprazole Sodium (Pantoprazole Sodium 40 Mg/10 Ml Vial) 40 mg IVPUSH BID@0630,1630 [facility] Last Admin: 03/23/21 07:54 Dose: 40 mg Documented by: Pharmacy Consult (Consult Rx Perform Med Rec) 1 each MISCELLANE ONCE PRN PRN Reason: Consult order Trazodone HCl (Trazodone Hcl 50 Mg Tablet) 50 mg PO BEDTIME [facility] Last Admin: 03/22/21 22:10 Dose: Not Given Documented by: Time Spent With Patient Time: Total time spent is greater than 50% in coordination of care (as documented) at patient's floor/unit and/or counseling patient: Time with patient: 15 - 24 minutes Quality Stroke Does the patient have a stroke diagnosis?: No VTE Prior VTE?: No VTE Risk Level:: Surgical - moderate VTE Device Contraindication: Treatment Not Indicated VTE Drug Contraindication: N/A - Med Ordered
--- NOTE | 2021-03-23 08:15 | PC.NURSE ---
pt medicated with prn- pt starting to scream in pain. this rn attempting to redirect pt.
--- NOTE | 2021-03-23 10:07 | MHC.CM.PN ---
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 D/C PLAN: HOME NO SERVICES, FAMILY FOR TRANSPORT
--- NOTE | 2021-03-23 10:10 | PC.NURSE ---
md petersen contacted regarding pt pain
--- NOTE | 2021-03-23 16:37 | P.CNGI_ITS ---
History of Present Illness Data of Consult Service Date: 03/23/21 Requesting physician: Teofilo Vitale Primary Care Provider: Unknown Physician HPI Reason for consult: coffee ground emesis, nausea 56 year old female w/ h/o osteoporosis, appendectomy, hysterectomy and laparotomy who I am seeing for assessment of nausea, pain and coffee colored emesis. She presents with 2 weeks of constipation, with increasing abdominal distention, diffuse worsening abdominal pain, crampy in nature. She denies chest pain, SOB, dysuria. She had black colored emesis on attempts to place NGT. She had CT with SBO with no definitive transition zone noted. Since placement of NGT and suction she feels much better. On inspection bilious material note coming thru NGT> No blood. Review of Systems Review of Systems: Constitutional : No Weight loss, No Fever, No Chills ENT/Mouth : No sore throat, No Rhinorrhea Eyes: No Swelling, No Redness Cardiovascular : No Chest Pain, No SOB, No Edema Respiratory : No Cough, No Sputum, No Wheezing Gastrointestinal : see HPI Genitourinary : NO Dysuria, No Urinary Frequency, No Hematuria, No Urgency Musculoskeletal : No joint pain, No Myalgias, No Joint Swelling Skin : No Skin Lesions, No rash Neuro : No Weakness, No Numbness, No Dizziness, No Headache Psych : No Anxiety/Panic, + Depression--reactive due to of family recently in [place] Heme/Lymph: No Bruising, No Lymphadenopathy Endocrine : No Polyuria, No Polydipsia All other systems reviewed and are negative. [facility] Past Medical History Medical History Abdominal adhesions Abdominal pain Acid reflux Chronic constipation Colitis Fibromyalgia Lupus Migraines Osteoarthritis Osteoporosis Pulmonary nodules Vitamin D deficiency Family History Family History Father Fibromyalgia Osteoporosis Mother Stroke Surgical History Surgical History H/O elbow surgery History of hysterectomy with oophorectomy History of removal of ovarian cyst Hx of appendectomy Hx of colonoscopy Hx of tonsillectomy Social History Social History Household Members: Family Housing: Apartment Do you presently have visiting nurse or other home services: No Alcohol intake: never Patient Tobacco Use Status: Current everyday Tobacco user Tobacco use type: Cigarette Cigarette Packs Per Day: 1 Cigarettes Per Day: 20.0 Years Smoked: 23 Second Hand Smoke Exposure: Yes service: No Current occupational status: disabled Meds Allergies Allergy/AdvReac Type Severity Reaction Status Date / Time tramadol [TRAMADOL] Allergy Unknown NAUSEA & Verified 12/29/20 13:04 VOMITING Active Medications: Current Medications Albuterol Sulfate (Albuterol Sulfate 90 Mcg 8 Gm Inhaler) 2 puff INHALE Q4H PRN PRN Reason: Shortness Of Breath Amitriptyline HCl (Amitriptyline Hcl 25 Mg Tablet) 25 mg PO BEDTIME [facility] Last Admin: 03/22/21 22:10 Dose: Not Given Documented by: Bupropion HCl (Bupropion Hcl Xl 150 Mg Tab.Er.24h) 150 mg PO DAILY [facility] Last Admin: 03/23/21 08:01 Dose: 150 mg Documented by: Enoxaparin Sodium (Enoxaparin Sodium 40 Mg/0.4 Ml Syringe) 40 mg SUBCUT Q24H [facility] Last Admin: 03/23/21 12:28 Dose: Not Given Documented by: Famotidine (Famotidine/Pf 20 Mg/2 Ml Vial) 20 mg IVPUSH Q12H [facility] Last Admin: 03/23/21 12:27 Dose: 20 mg Documented by: Hydromorphone HCl (Hydromorphone Hcl 0.5 Mg/0.5 Ml Syringe) 0.5 mg IVPUSH Q2H PRN; Protocol PRN Reason: Pain, Severe (Pain Scale 7-10) Last Admin: 03/23/21 15:37 Dose: 0.5 mg Documented by: Potassium Chloride/Dextrose/Sod Cl () 20 meq in 1,000 mls @ 100 mls/hr IVCONT .Q10H [facility] Last Infusion: 03/23/21 16:16 Dose: 0 mls/hr Documented by: Piperacillin Sod/Tazobactam (Sod 3.375 gm/ Sodium Chloride) 50 mls @ 100 mls/hr IV Q6H [facility] Last Infusion: 03/23/21 16:16 Dose: 100 mls/hr Documented by: Nicotine (Nicotine 21 Mg Patch.Td24) 21 mg TRANSDERMA DAILY [facility] Last Admin: 03/23/21 08:01 Dose: 21 mg Documented by: Ondansetron HCl (Ondansetron Hcl 4 Mg/2 Ml Vial) 4 mg IVPUSH Q8H PRN PRN Reason: Nausea Last Admin: 03/23/21 06:41 Dose: 4 mg Documented by: Pantoprazole Sodium (Pantoprazole Sodium 40 Mg/10 Ml Vial) 40 mg IVPUSH BID@0630,1630 [facility] Last Admin: 03/23/21 07:54 Dose: 40 mg Documented by: Pharmacy Consult (Consult Rx Perform Med Rec) 1 each MISCELLANE ONCE PRN PRN Reason: Consult order Trazodone HCl (Trazodone Hcl 50 Mg Tablet) 50 mg PO BEDTIME [facility] Last Admin: 03/22/21 22:10 Dose: Not Given Documented by: Home Medications Medication Instructions Recorded Confirmed Last Taken Type albuterol sulfate 90 mcg/actuation 2 puff INHALATION Q4-6H PRN 04/30/20 03/22/21 Unknown History aerosol inhaler (Ventolin HFA) amitriptyline 25 mg tablet 25 mg PO BEDTIME 04/30/20 03/22/21 Unknown History bupropion HCl 150 mg 24 hr tablet, 150 mg PO DAILY 04/30/20 03/22/21 Unknown History extended release (Wellbutrin XL) lidocaine 5 % topical patch 2 patch TOPICAL DAILY 04/30/20 03/22/21 Unknown History (Lidoderm) omeprazole 20 mg tablet,delayed 20 mg PO BID 04/30/20 03/22/21 07/14/20 07:40 History release 20 mg sennosides 8.6 mg tablet (senna) 17.2 mg PO BEDTIME PRN tab 04/30/20 03/22/21 Unknown History nicotine 21 mg/24 hr daily 1 patch TOPICAL DAILY 03/22/21 03/22/21 Unknown History transdermal patch trazodone 50 mg tablet 1 tab PO BEDTIME 03/22/21 03/22/21 Unknown History Physical Exam Vital Signs: Vital Signs: Last Vital Signs Temp 98.1 F 03/23/21 16:15 Pulse 79 03/23/21 16:15 Resp 16 03/23/21 16:15 BP 147/67 H 03/23/21 16:15 Pulse Ox 95 03/23/21 16:15 Body Mass Index 17.9 Const: General: no acute distress HENMT: Head: Yes normocephalic and Yes atraumatic Neck: Neck: Yes trachea midline and Yes supple Resp: Effort & Inspection: normal respiratory effort Auscultation: clear to auscultation bilaterally Cardio: Rate: regular rate Rhythm: regular rhythm GI: Other: Distended but soft, no guarding rebound, mild diffuse tenderness Skin: General skin exam: no rashes or lesions noted Extrem: General: Yes normal to inspection Results Labs CBC & Chem 7: 03/23/21 05:29 03/23/21 05:29 Labs: Short CBC 03/23/21 Range/Units 05:29 WBC 7.7 (4.8-10.8) X10*3/uL Hgb 13.9 (12.0-16.0) g/dl Hct 39.3 (37.0-47.0) % Plt Count 253 (160-400) X10*3/uL BMP 03/22/21 03/23/21 16:18 05:29 Sodium 139 139 Potassium 3.9 4.5 Chloride 105 105 Carbon Dioxide 26 26 BUN 11 8 L Creatinine 0.69 0.73 Calcium 8.8 D 8.6 Microbiology Microbiology Results: Microbiology 03/22/21 05:43 Blood - Venous Blood Culture - Preliminary Prelim: GPR Gram Stain only 03/22/21 05:43 Blood - Venous Blood Culture - Preliminary No growth after 24 hours. Assessment and Plan (1) Small bowel obstruction: Status: Acute 1/SBo prob 2/2 adhesions from prior surgery 2/ Emesis, more bilious than coffee ground on inspection, HGB stable on labs PLAN: 1/ No indication for EGD at this time 2/ can use low dose PPI to reduce risk of esophagitis an NGT related stomach trauma 3/ further w/u per surgery team for SBO, cont wiht drip and suck treatment Procedures Date of Service Date of Service: 03/23/21
[2021-03-23] MEDS: Amitriptyline HCl 25 MG TABLET PO (19:58)
[2021-03-23] MEDS: traZODone HCL 50 MG TABLET PO (19:58)
[2021-03-24] MEDS: Famotidine/PF 20 MG/2 ML VIAL IVPUSH ×3 (00:06→23:54)
[2021-03-24] MEDS: HYDROmorphone HCl 0.5 MG/0.5 ML SYRINGE IVPUSH ×10 (00:40→21:34)
[2021-03-24] MEDS: Piperacillin Sodium/Tazobactam 3.375 GM in 0.9 % Sodium Chloride 50 ML IV ×2 (02:51→08:40)
[2021-03-24 04:00] VITALS: BP 150/80; PULSE 76; RESP 17; TEMP 37; O2SAT 96
[2021-03-24] MEDS: KCl 20 mEq in 5% Dex/0.45% Sod 20 MEQ/1,000 ML IV.SOLN 100 MEQ IVCONT ×2 (04:10→19:37)
[2021-03-24] MEDS: Pantoprazole Sodium 40 MG/10 ML VIAL IVPUSH ×2 (05:53→15:26)
[2021-03-24 07:06] VITALS: BP 160/77; PULSE 71; RESP 17; TEMP 37.1; O2SAT 97
--- NOTE | 2021-03-24 08:37 | P.PNGS_ITS ---
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 Sleeping upon entering room. Upon questioning, began writhing in pain, c/o severe difuse pain. Pain the same as yesterday. Requiring frequent dilaudid admin. Denies flatus, c/o nausea. <Dora Victoria PA-C - Last Filed: 03/24/21 08:45> Physical Exam Vital Signs: Vital Signs: Last Vital Signs Temp 98.8 F 03/24/21 07:06 Pulse 71 03/24/21 07:06 Resp 17 03/24/21 07:06 BP 160/77 H 03/24/21 07:06 Pulse Ox 97 03/24/21 07:06 Body Mass Index 17.9 <Dora Victoria PA-C - Last Filed: 03/24/21 08:45> Const: General: healthy appearing, comfortable and other (c/o pain) <Gloria Victoria PA-C - Last Filed: 03/24/21 08:45> Orientation/consciousness: patient oriented x3 <DOMINIQUE Diaz Last Filed: 03/24/21 08:45> Resp: Effort & Inspection: normal respiratory effort <DOMINIQUE Diaz Last Filed: 03/24/21 08:45> GI: Inspection: Yes distended (softly) and Yes scar (midline, extending from umbilicus to pelvis) <DOMINIQUE Diaz Last Filed: 03/24/21 08:45> Palpation (GI): Soft to palpation and Tenderness to palpation present (GI) (diffuse, voluntary guarding) Negative for with no rebound tenderness <DOMINIQUE Diaz Last Filed: 03/24/21 08:45> Percussion: Yes tympanic to percussion (mild) <DOMINIQUE Diaz Last Filed: 03/24/21 08:45> Skin: General skin exam: no rashes or lesions noted <Dora Victoria PA-C - Last Filed: 03/24/21 08:45> Neuro: General: patient oriented x3 <Dora Victoria PA-C - Last Filed: 03/24/21 08:45> Extrem: General: Yes no clubbing, cyanosis or edema <Dora Victoria PA-C - Last Filed: 03/24/21 08:45> Objective Data Active Medications Albuterol Sulfate (Albuterol Sulfate 90 Mcg 8 Gm Inhaler) 2 puff INHALE Q4H PRN PRN Reason: Shortness Of Breath Amitriptyline HCl (Amitriptyline Hcl 25 Mg Tablet) 25 mg PO BEDTIME [facility] Last Admin: 03/23/21 19:58 Dose: 25 mg Documented by: MISTY Bupropion HCl (Bupropion Hcl Xl 150 Mg Tab.Er.24h) 150 mg PO DAILY [facility] Last Admin: 03/23/21 08:01 Dose: 150 mg Documented by: BETY Enoxaparin Sodium (Enoxaparin Sodium 40 Mg/0.4 Ml Syringe) 40 mg SUBCUT Q24H [facility] Last Admin: 03/23/21 12:28 Dose: Not Given Documented by: BETY Non-Admin Reason: Patient Refused Famotidine (Famotidine/Pf 20 Mg/2 Ml Vial) 20 mg IVPUSH Q12H [facility] Last Admin: 03/24/21 00:06 Dose: 20 mg Documented by: MISTY Hydromorphone HCl (Hydromorphone Hcl 0.5 Mg/0.5 Ml Syringe) 0.5 mg IVPUSH Q2H PRN; Protocol PRN Reason: Pain, Severe (Pain Scale 7-10) Last Admin: 03/24/21 05:50 Dose: 0.5 mg Documented by: MISTY Potassium Chloride/Dextrose/Sod Cl () 20 meq in 1,000 mls @ 100 mls/hr IVCONT .Q10H [facility] Last Admin: 03/24/21 04:10 Dose: 100 mls/hr Documented by: MISTY Piperacillin Sod/Tazobactam (Sod 3.375 gm/ Sodium Chloride) 50 mls @ 100 mls/hr IV Q6H [facility] Last Infusion: 03/24/21 03:34 Dose: 0 mls/hr Documented by: MISTY Nicotine (Nicotine 21 Mg Patch.Td24) 21 mg TRANSDERMA DAILY [facility] Last Admin: 03/23/21 08:01 Dose: 21 mg Documented by: BETY Ondansetron HCl (Ondansetron Hcl 4 Mg/2 Ml Vial) 4 mg IVPUSH Q8H PRN PRN Reason: Nausea Last Admin: 03/23/21 06:41 Dose: 4 mg Documented by: KEVIN Pantoprazole Sodium (Pantoprazole Sodium 40 Mg/10 Ml Vial) 40 mg IVPUSH BID@0630,1630 [facility] Last Admin: 03/24/21 05:53 Dose: 40 mg Documented by: MISTY Pharmacy Consult (Consult Rx Perform Med Rec) 1 each MISCELLANE ONCE PRN PRN Reason: Consult order Trazodone HCl (Trazodone Hcl 50 Mg Tablet) 50 mg PO BEDTIME [facility] Last Admin: 03/23/21 19:58 Dose: 50 mg Documented by: MISTY <Dora Victoria PA-C - Last Filed: 03/24/21 08:45> Labs CBC & Chem 7: : 03/23/21 05:29 03/23/21 05:29 <Dora Victoria PA-C - Last Filed: 03/24/21 08:45> Microbiology Microbiology Results: Microbiology 03/22/21 05:43 Blood Culture - Preliminary Blood - Venous Gram positive nely 03/22/21 05:43 Blood Culture - Preliminary Blood - Venous No growth after 48 hours. <Dora Victoria PA-C - Last Filed: 03/24/21 08:45> Procedures Date of Service Date of Service: 03/24/21 <Torey Benites MD - Last Filed: 03/24/21 09:26> Progress Note: A&P Assessment and plan (1) Small bowel obstruction: Status: Acute <Dora Victoria PA-C - Last Filed: 03/24/21 08:45> Assessment and Plan: Continues to complain of pain and says she for requires Dilaudid Often times however seen to be sleeping Will therefore repeat CT scan to re-evaluate Stable vital signs however - no fever, pulse rate within normal Abdomen soft Seen and examined - agree with STEPHANIE Victoria <Torey Benites MD - Last Filed: 03/24/21 09:26> Assessment and Plan: 56 year old female with extensive surgical history admitted with nausea, vomiting and abdominal pain and CT findings consistent with small-bowel obstruction.? She continues to have severe pain and requiring IV dilaudid frequently. She denies passing any flatus. VSS. She is hard to examine as she begins to wraith in pain but her abdomen is softly distended and diffusely tender with voluntary guarding. Given the persistence of pain, will reassess with CT scan today. Repeat labs. Further plan dependent on results. Cont NGT, NPO, IVF. Unclear why she is on IV zosyn, will dc. <Dora Victoria PA-C - Last Filed: 03/24/21 08:45> 56 year old female with extensive surgical history admitted with na usea, vomiting and abdominal pain and CT findings consistent with small-bowel obstruction.? She continues to have severe pain and requiring IV dilaudid frequently. She denies passing any flatus. VSS. She is hard to examine as she begins to wraith in pain but her abdomen is softly distended and diffusely tender with voluntary guarding. Given the persistence of pain, will reassess with CT scan today. Repeat labs. Further plan dependent on results. Cont NGT, NPO, IVF. Unclear why she is on IV zosyn, will dc. <Torey Benites MD - Last Filed: 03/24/21 09:26> Fall Risk Details Current Medications: Current Medications Albuterol Sulfate (Albuterol Sulfate 90 Mcg 8 Gm Inhaler) 2 puff INHALE Q4H PRN PRN Reason: Shortness Of Breath Amitriptyline HCl (Amitriptyline Hcl 25 Mg Tablet) 25 mg PO BEDTIME [facility] Last Admin: 03/23/21 19:58 Dose: 25 mg Documented by: Bupropion HCl (Bupropion Hcl Xl 150 Mg Tab.Er.24h) 150 mg PO DAILY [facility] Last Admin: 03/23/21 08:01 Dose: 150 mg Documented by: Enoxaparin Sodium (Enoxaparin Sodium 40 Mg/0.4 Ml Syringe) 40 mg SUBCUT Q24H [facility] Last Admin: 03/23/21 12:28 Dose: Not Given Documented by: Famotidine (Famotidine/Pf 20 Mg/2 Ml Vial) 20 mg IVPUSH Q12H [facility] Last Admin: 03/24/21 00:06 Dose: 20 mg Documented by: Hydromorphone HCl (Hydromorphone Hcl 0.5 Mg/0.5 Ml Syringe) 0.5 mg IVPUSH Q2H PRN; Protocol PRN Reason: Pain, Severe (Pain Scale 7-10) Last Admin: 03/24/21 05:50 Dose: 0.5 mg Documented by: Potassium Chloride/Dextrose/Sod Cl () 20 meq in 1,000 mls @ 100 mls/hr IVCONT .Q10H [facility] Last Admin: 03/24/21 04:10 Dose: 100 mls/hr Documented by: Piperacillin Sod/Tazobactam (Sod 3.375 gm/ Sodium Chloride) 50 mls @ 100 mls/hr IV Q6H [facility] Last Infusion: 03/24/21 03:34 Dose: Infused Documented by: Nicotine (Nicotine 21 Mg Patch.Td24) 21 mg TRANSDERMA DAILY [facility] Last Admin: 03/23/21 08:01 Dose: 21 mg Documented by: Ondansetron HCl (Ondansetron Hcl 4 Mg/2 Ml Vial) 4 mg IVPUSH Q8H PRN PRN Reason: Nausea Last Admin: 03/23/21 06:41 Dose: 4 mg Documented by: Pantoprazole Sodium (Pantoprazole Sodium 40 Mg/10 Ml Vial) 40 mg IVPUSH BID@0630,1630 [facility] Last Admin: 03/24/21 05:53 Dose: 40 mg Documented by: Pharmacy Consult (Consult Rx Perform Med Rec) 1 each MISCELLANE ONCE PRN PRN Reason: Consult order Trazodone HCl (Trazodone Hcl 50 Mg Tablet) 50 mg PO BEDTIME [facility] Last Admin: 03/23/21 19:58 Dose: 50 mg Documented by: <Dora Victoria PA-C - Last Filed: 03/24/21 08:45> Time Spent With Patient Time: Total time spent is greater than 50% in coordination of care (as documented) at patient's floor/unit and/or counseling patient: <Dora Victoria PA-C - Last Filed: 03/24/21 08:45> Time with patient: 15 - 24 minutes <Dora Victoria PA-C - Last Filed: 03/24/21 08:45> Quality Stroke Does the patient have a stroke diagnosis?: No <Dora Victoria PA-C - Last Filed: 03/24/21 08:45> VTE Prior VTE?: No <Dora Victoria PA-C - Last Filed: 03/24/21 08:45> VTE Risk Level:: Surgical - moderate <Dora Victoria PA-C - Last Filed: 03/24/21 08:45> VTE Device Contraindication: Treatment Not Indicated <Dora Victoria PA-C - Last Filed: 03/24/21 08:45> VTE Drug Contraindication: N/A - Med Ordered <Dora Victoria PA-C - Last Filed: 03/24/21 08:45>
[2021-03-24] MEDS: Nicotine 21 MG PATCH.TD24 TRANSDERMA (08:43)
[2021-03-24 09:23] LABS: MANUAL DIFF FLAG NO
[2021-03-24 09:29] LABS: Basophils Percent Auto 0.4 % (0-2); Eosinophils Absolute Auto 0.1 X10*3/uL (0.0-0.4); Eosinophils Percent Auto 0.8 % (0-4); Hematocrit 37.5 % (37.0-47.0); Hemoglobin 13.3 g/dl (12.0-16.0); Imm Gran Abs Auto 0.03 X10*3/uL (0.00-0.03); Imm Gran Pct Auto 0.4 % (0.0-0.4); Lymphocytes Absolute Auto 1.3 X10*3/uL (1.2-4.9); Lymphocytes Percent Auto 16.6 % (20-40); Mean Corpuscular HGB Conc 35.5 g/dl (31.0-35.0); Mean Corpuscular Hemoglobin 32.8 pg (27.0-33.0); Mean Corpuscular Volume 92.4 fL (80.0-98.0); Mean Platelet Volume 9.9 fL (9.4-12.3); Monocytes Absolute Auto 1.1 X10*3/uL (0.1-1.2); Monocytes Percent Auto 13.6 % (2-11); Neutrophils Absolute Auto 5.4 x10*3/uL (2.0-8.3); Neutrophils Percent Auto 68.2 % (45-73); Platelet Count 261 X10*3/uL (160-400); Red Blood Count 4.06 X10*6/uL (4.20-5.50); Red Cell Distribution Width 11.9 % (11.0-16.0)
[2021-03-24 11:14] LABS: Anion Gap 12 (12-20); Blood Urea Nitrogen 6 mg/dL (9-16); Calcium 8.9 mg/dL (8.4-10.2); Carbon Dioxide 28 mmol/L (22-29); Chloride 103 mmol/L (96-108); Creatinine Clr Calc Pharmacy 75.1; Estimated Glomerular Filt Rate > 60; Glucose Fasting 110 mg/dL (60-99); Potassium 4.4 mmol/L (3.3-5.1); Sodium 139 mmol/L (135-145)
[2021-03-24 11:24] VITALS: BP 140/62; PULSE 104; RESP 18; TEMP 36.9; O2SAT 97
[2021-03-24] MEDS: iohexoL 350 MG/ML 100 ML INFUS..BTL 85 ML IV (11:32)
[2021-03-24 14:00] VITALS: BMI 19.1
[2021-03-24 15:11] VITALS: BP 115/72; PULSE 84; RESP 19; TEMP 37.4; O2SAT 98
--- NOTE | 2021-03-24 16:02 | P.EN_ITS ---
Event Note Date of Service: 03/24/21 Event Note: CT scan reviewed - persistent small bowel dilatation, unable to id entify any transition point Still with air in the colon distally, so if with obstruction, likely partial She was asleep when came for afternoon rounds Abdomen distended but soft, diffusely She continues to ask for pain medication, Explained to her that if she does not feel any improvement by tomorrow, we will consider laparotomy She seems to understand Will re-evaluate in the morning Labs okay today Stable vital signs
[2021-03-24 20:00] VITALS: RESP 18
[2021-03-24 23:52] VITALS: BP 143/70; PULSE 85; RESP 18; TEMP 36.9; O2SAT 96
[2021-03-25] VITALS (19 sets, daily range): BP systolic 107–162; BP diastolic 59–75; PULSE 66–96; RESP 16–20; TEMP 36.3–37.4; O2SAT 93–100
[2021-03-25] MEDS: HYDROmorphone HCl 0.5 MG/0.5 ML SYRINGE IVPUSH ×6 (02:09→10:52)
[2021-03-25] MEDS: KCl 20 mEq in 5% Dex/0.45% Sod 20 MEQ/1,000 ML IV.SOLN 100 MEQ IVCONT ×2 (06:16→23:22)
[2021-03-25] MEDS: Pantoprazole Sodium 40 MG/10 ML VIAL IVPUSH (06:17)
--- NOTE | 2021-03-25 08:33 | PM.PNGS ---
Subjective Subjective Date of Service: 03/25/21 Interval history: She does not feel better Says she still needs IV pain medications frequently Denies flatus Physical Exam Vital Signs: Vital Signs: Last Vital Signs Temp 99.3 F 03/25/21 08:00 Pulse 78 03/25/21 08:00 Resp 20 03/25/21 08:00 BP 142/73 H 03/25/21 08:00 Pulse Ox 99 03/25/21 08:00 Body Mass Index 19.1 Const: Other: Complaints of pain Resp: Effort & Inspection: normal respiratory effort Cardio: Rate: regular rate GI: Other: Soft but tender diffusely Objective Data Active Medications Albuterol Sulfate (Albuterol Sulfate 90 Mcg 8 Gm Inhaler) 2 puff INHALE Q4H PRN PRN Reason: Shortness Of Breath Amitriptyline HCl (Amitriptyline Hcl 25 Mg Tablet) 25 mg PO BEDTIME [facility] Last Admin: 03/24/21 21:37 Dose: Not Given Documented by: SUJATHA Non-Admin Reason: NPO Bupropion HCl (Bupropion Hcl Xl 150 Mg Tab.Er.24h) 150 mg PO DAILY [facility] Last Admin: 03/24/21 09:03 Dose: Not Given Documented by: EVERARDO Non-Admin Reason: NPO Enoxaparin Sodium (Enoxaparin Sodium 40 Mg/0.4 Ml Syringe) 40 mg SUBCUT Q24H [facility] Last Admin: 03/24/21 12:35 Dose: Not Given Documented by: EVERARDO Non-Admin Reason: Patient Refused Famotidine (Famotidine/Pf 20 Mg/2 Ml Vial) 20 mg IVPUSH Q12H [facility] Last Admin: 03/24/21 23:54 Dose: 20 mg Documented by: SUJATHA Hydromorphone HCl (Hydromorphone Hcl 0.5 Mg/0.5 Ml Syringe) 0.5 mg IVPUSH Q2H PRN; Protocol PRN Reason: Pain, Severe (Pain Scale 7-10) Last Admin: 03/25/21 06:17 Dose: 0.5 mg Documented by: SUJATHA Potassium Chloride/Dextrose/Sod Cl () 20 meq in 1,000 mls @ 100 mls/hr IVCONT .Q10H [facility] Last Admin: 03/25/21 06:16 Dose: 100 mls/hr Documented by: SUJATHA Nicotine (Nicotine 21 Mg Patch.Td24) 21 mg TRANSDERMA DAILY [facility] Last Admin: 03/24/21 08:43 Dose: 21 mg Documented by: EVERARDO Ondansetron HCl (Ondansetron Hcl 4 Mg/2 Ml Vial) 4 mg IVPUSH Q8H PRN PRN Reason: Nausea Last Admin: 03/23/21 06:41 Dose: 4 mg Documented by: KEVIN Pantoprazole Sodium (Pantoprazole Sodium 40 Mg/10 Ml Vial) 40 mg IVPUSH BID@0630,1630 [facility] Last Admin: 03/25/21 06:17 Dose: 40 mg Documented by: SUJATHA Pharmacy Consult (Consult Rx Perform Med Rec) 1 each MISCELLANE ONCE PRN PRN Reason: Consult order Trazodone HCl (Trazodone Hcl 50 Mg Tablet) 50 mg PO BEDTIME [facility] Last Admin: 03/24/21 21:38 Dose: Not Given Documented by: SUJATHA Non-Admin Reason: NPO Labs CBC & Chem 7: 03/24/21 09:16 03/24/21 09:16 Labs: Laboratory Results - last 24 hr 03/24/21 03/24/21 09:16 09:16 MCV 92.4 MCH 32.8 MCHC 35.5 H RDW 11.9 Plt Count 261 MPV 9.9 Immature Gran % (Auto) 0.4 Neut % (Auto) 68.2 Lymph % (Auto) 16.6 L [place] % (Auto) 13.6 H Eos % (Auto) 0.8 Baso % (Auto) 0.4 Lymph # (Auto) 1.3 [place] # (Auto) 1.1 Eos # (Auto) 0.1 Baso # (Auto) 0.0 Abs Immat Gran (auto) 0.03 Absolute Neuts (auto) 5.4 Absolute Nucleated RBC 0.000 Nucleated RBC % (auto) 0.0 Anion Gap 12 Estim Creat Clear Calc 75.1 Estimated GFR > 60 Fasting Glucose 110 H Calcium 8.9 Microbiology Microbiology Results: Microbiology 03/22/21 05:43 Blood Culture - Preliminary Blood - Venous Clostridium species 03/22/21 05:43 Blood Culture - Preliminary Blood - Venous No growth after 48 hours. Procedures Date of Service Date of Service: 03/25/21 Progress Note: A&P Assessment and plan (1) Small bowel obstruction: Status: Acute Assessment and Plan: Does not seem to have improved Continues to have pain and tenderness Will proceed with laparotomy I explained to her the technique of laparotomy, possible resection I reviewed the risks including but not limited to bleeding, infections, staple line leak, bowel injury, inherent anesthesia risks, as well as the benefits and alternatives She wants to proceed Plans discussed with sister Seema I have reviewed her films extensively with Dr. Marks - possible transition point point may be in the distal ileum at the mid abdomen just below the umbilicus; no or acute inflammatory process seen (2) Moderate malnutrition: Status: Acute Assessment and Plan: pt assessed to have mulnitrtion by the dietitian will add nutritional supplements aftert surgery once tolerating diet may need TPN as well. Fall Risk Details Current Medications: Current Medications Albuterol Sulfate (Albuterol Sulfate 90 Mcg 8 Gm Inhaler) 2 puff INHALE Q4H PRN PRN Reason: Shortness Of Breath Amitriptyline HCl (Amitriptyline Hcl 25 Mg Tablet) 25 mg PO BEDTIME [facility] Last Admin: 03/24/21 21:37 Dose: Not Given Documented by: Bupropion HCl (Bupropion Hcl Xl 150 Mg Tab.Er.24h) 150 mg PO DAILY [facility] Last Admin: 03/24/21 09:03 Dose: Not Given Documented by: Enoxaparin Sodium (Enoxaparin Sodium 40 Mg/0.4 Ml Syringe) 40 mg SUBCUT Q24H [facility] Last Admin: 03/24/21 12:35 Dose: Not Given Documented by: Famotidine (Famotidine/Pf 20 Mg/2 Ml Vial) 20 mg IVPUSH Q12H [facility] Last Admin: 03/24/21 23:54 Dose: 20 mg Documented by: Hydromorphone HCl (Hydromorphone Hcl 0.5 Mg/0.5 Ml Syringe) 0.5 mg IVPUSH Q2H PRN; Protocol PRN Reason: Pain, Severe (Pain Scale 7-10) Last Admin: 03/25/21 06:17 Dose: 0.5 mg Documented by: Potassium Chloride/Dextrose/Sod Cl () 20 meq in 1,000 mls @ 100 mls/hr IVCONT .Q10H [facility] Last Admin: 03/25/21 06:16 Dose: 100 mls/hr Documented by: Nicotine (Nicotine 21 Mg Patch.Td24) 21 mg TRANSDERMA DAILY [facility] Last Admin: 03/24/21 08:43 Dose: 21 mg Documented by: Ondansetron HCl (Ondansetron Hcl 4 Mg/2 Ml Vial) 4 mg IVPUSH Q8H PRN PRN Reason: Nausea Last Admin: 03/23/21 06:41 Dose: 4 mg Documented by: Pantoprazole Sodium (Pantoprazole Sodium 40 Mg/10 Ml Vial) 40 mg IVPUSH BID@0630,1630 [facility] Last Admin: 03/25/21 06:17 Dose: 40 mg Documented by: Pharmacy Consult (Consult Rx Perform Med Rec) 1 each MISCELLANE ONCE PRN PRN Reason: Consult order Trazodone HCl (Trazodone Hcl 50 Mg Tablet) 50 mg PO BEDTIME [facility] Last Admin: 03/24/21 21:38 Dose: Not Given Documented by: Time Spent With Patient Time: Total time spent is greater than 50% in coordination of care (as documented) at patient's floor/unit and/or counseling patient: Time with patient: 15 - 24 minutes Quality Stroke Does the patient have a stroke diagnosis?: No VTE Prior VTE?: No VTE Risk Level:: Surgical - moderate VTE Device Contraindication: Treatment Not Indicated VTE Drug Contraindication: N/A - Med Ordered
--- NOTE | 2021-03-25 08:37 | PC.NURSE ---
Skin assessment completed. No skin issues documented at this time. Patient may have surgery to remove small bowel obstruction, if that does happen will monitor patient.
[2021-03-25] MEDS: Nicotine 21 MG PATCH.TD24 TRANSDERMA (08:41)
[2021-03-25] MEDS: Famotidine/PF 20 MG/2 ML VIAL IVPUSH ×2 (10:53→23:22)
--- NOTE | 2021-03-25 12:48 | P.CONAN_ITS ---
HPI - Anesthesia Eval Consult details Narrative: 56 yo female patient for exploratory laparotomy PMFSH Active Problems Active Problems: All Active Problems (Updated 03/22/21 @ 12:44 by Mimi Lynn MD) Small bowel obstruction (Acute) Abdominal pain (Acute) Encounter for screening colonoscopy (Acute) Vitamin D deficiency (Acute) Osteoporosis (Acute) Past Medical History Medical History Abdominal adhesions Abdominal pain Acid reflux Chronic constipation Colitis Fibromyalgia Lupus Migraines Osteoarthritis Osteoporosis Pulmonary nodules Vitamin D deficiency Family History Family History Father Fibromyalgia Osteoporosis Mother Stroke Family history of problems with anesthesia: No Surgical History Surgical History H/O elbow surgery History of hysterectomy with oophorectomy History of removal of ovarian cyst Hx of appendectomy Hx of colonoscopy Hx of tonsillectomy History of Problems with Anesthesia: No Social History Social History Household Members: Family Housing: Apartment Do you presently have visiting nurse or other home services: No Alcohol intake: never Patient Tobacco Use Status: Current everyday Tobacco user Tobacco use type: Cigarette Cigarette Packs Per Day: 1 Cigarettes Per Day: 20.0 Years Smoked: 23 Second Hand Smoke Exposure: Yes service: No Current occupational status: disabled Meds Allergies Allergy/AdvReac Type Severity Reaction Status Date / Time tramadol [TRAMADOL] Allergy Unknown NAUSEA & Verified 12/29/20 13:04 VOMITING Active Medications: Current Medications Albuterol Sulfate (Albuterol Sulfate 90 Mcg 8 Gm Inhaler) 2 puff INHALE Q4H PRN PRN Reason: Shortness Of Breath Amitriptyline HCl (Amitriptyline Hcl 25 Mg Tablet) 25 mg PO BEDTIME COUNTS INCLUDE 234 BEDS AT THE [facility] Last Admin: 03/24/21 21:37 Dose: Not Given Documented by: Bupropion HCl (Bupropion Hcl Xl 150 Mg Tab.Er.24h) 150 mg PO DAILY COUNTS INCLUDE 234 BEDS AT THE [facility] Last Admin: 03/25/21 08:35 Dose: Not Given Documented by: Enoxaparin Sodium (Enoxaparin Sodium 40 Mg/0.4 Ml Syringe) 40 mg SUBCUT Q24H COUNTS INCLUDE 234 BEDS AT THE [facility] Last Admin: 03/25/21 11:00 Dose: Not Given Documented by: Famotidine (Famotidine/Pf 20 Mg/2 Ml Vial) 20 mg IVPUSH Q12H COUNTS INCLUDE 234 BEDS AT THE [facility] Last Admin: 03/25/21 10:53 Dose: 20 mg Documented by: Hydromorphone HCl (Hydromorphone Hcl 0.5 Mg/0.5 Ml Syringe) 0.5 mg IVPUSH Q2H PRN; Protocol PRN Reason: Pain, Severe (Pain Scale 7-10) Last Admin: 03/25/21 10:52 Dose: 0.5 mg Documented by: Potassium Chloride/Dextrose/Sod Cl () 20 meq in 1,000 mls @ 100 mls/hr IVCONT .Q10H COUNTS INCLUDE 234 BEDS AT THE [facility] Last Infusion: 03/25/21 11:49 Dose: 0 mls/hr Documented by: Nicotine (Nicotine 21 Mg Patch.Td24) 21 mg TRANSDERMA DAILY COUNTS INCLUDE 234 BEDS AT THE [facility] Last Admin: 03/25/21 08:41 Dose: 21 mg Documented by: Ondansetron HCl (Ondansetron Hcl 4 Mg/2 Ml Vial) 4 mg IVPUSH Q8H PRN PRN Reason: Nausea Last Admin: 03/23/21 06:41 Dose: 4 mg Documented by: Pantoprazole Sodium (Pantoprazole Sodium 40 Mg/10 Ml Vial) 40 mg IVPUSH BID@0630,1630 COUNTS INCLUDE 234 BEDS AT THE [facility] Last Admin: 03/25/21 06:17 Dose: 40 mg Documented by: Pharmacy Consult (Consult Rx Perform Med Rec) 1 each MISCELLANE ONCE PRN PRN Reason: Consult order Trazodone HCl (Trazodone Hcl 50 Mg Tablet) 50 mg PO BEDTIME COUNTS INCLUDE 234 BEDS AT THE [facility] Last Admin: 03/24/21 21:38 Dose: Not Given Documented by: Home Medications Medication Instructions Recorded Confirmed Last Taken Type albuterol sulfate 90 mcg/actuation 2 puff INHALATION Q4-6H PRN 04/30/20 03/22/21 Unknown History aerosol inhaler (Ventolin HFA) amitriptyline 25 mg tablet 25 mg PO BEDTIME 04/30/20 03/22/21 Unknown History bupropion HCl 150 mg 24 hr tablet, 150 mg PO DAILY 04/30/20 03/22/21 Unknown History extended release (Wellbutrin XL) lidocaine 5 % topical patch 2 patch TOPICAL DAILY 12/23/20 11/14/21 Unknown History (Lidoderm) omeprazole 20 mg tablet,delayed 20 mg PO BID 04/30/20 03/22/21 07/14/20 07:40 History release 20 mg sennosides 8.6 mg tablet (senna) 17.2 mg PO BEDTIME PRN tab 04/30/20 03/22/21 Unknown History nicotine 21 mg/24 hr daily 1 patch TOPICAL DAILY 03/22/21 03/22/21 Unknown History transdermal patch trazodone 50 mg tablet 1 tab PO BEDTIME 03/22/21 03/22/21 Unknown History Exam Exam Date and Time: March 25, 2021 1248 Height,Weight and Vital Signs: Height 5 ft 3 in Weight 48.9 kg Last Vital Signs Temp 99.4 F 03/25/21 11:50 Pulse 78 03/25/21 11:50 Resp 16 03/25/21 11:50 BP 142/69 H 03/25/21 11:50 Pulse Ox 97 03/25/21 11:50 Pertinent Lab Results Pertinent Lab Results: Laboratory Tests 03/22/21 03/22/21 03/22/21 05:25 05:25 05:25 WBC 11.5 H RBC 4.47 Hgb 14.5 Hct 42.1 MCV 94.2 MCH 32.4 MCHC 34.4 RDW 11.9 Plt Count 316 MPV 9.5 Immature Gran % (Auto) 0.3 Neut % (Auto) 80.2 H Lymph % (Auto) 13.2 L [place] % (Auto) 5.1 Eos % (Auto) 0.8 Baso % (Auto) 0.4 Lymph # (Auto) 1.5 [place] # (Auto) 0.6 Eos # (Auto) 0.1 Baso # (Auto) 0.1 Abs Immat Gran (auto) 0.04 H Absolute Neuts (auto) 9.2 H Absolute Nucleated RBC 0.000 Nucleated RBC % (auto) 0.0 PT INR Sodium 138 Potassium 4.4 D Chloride 100 Carbon Dioxide 23 Anion Gap 19 BUN 11 Creatinine 0.77 Estim Creat Clear Calc 64.4 Estimated GFR > 60 Random Glucose 169 H Fasting Glucose Lactic Acid 1.9 Calcium 10.5 H D Total Bilirubin 0.7 AST 29 ALT 19 Alkaline Phosphatase 79 Total Protein 8.0 D Albumin 4.9 Lipase 16 Gastric Occult Blood COVID-19 (EVELYN) COVID-19 Clin Com Blood Type Antibody Screen 11/14/21 11/14/21 11/14/21 05:43 05:43 16:18 WBC 12.7 H RBC 4.15 L Hgb 13.8 Hct 38.9 MCV 93.7 MCH 33.3 H MCHC 35.5 H RDW 12.2 Plt Count 262 MPV 9.6 Immature Gran % (Auto) 0.2 Neut % (Auto) 88.3 H Lymph % (Auto) 5.7 L [place] % (Auto) 5.4 Eos % (Auto) 0.2 Baso % (Auto) 0.2 Lymph # (Auto) 0.7 L [place] # (Auto) 0.7 Eos # (Auto) 0.0 Baso # (Auto) 0.0 Abs Immat Gran (auto) 0.03 Absolute Neuts (auto) 11.2 H Absolute Nucleated RBC 0.000 Nucleated RBC % (auto) 0.0 PT 11.4 INR 1.0 Sodium Potassium Chloride Carbon Dioxide Anion Gap BUN Creatinine Estim Creat Clear Calc Estimated GFR Random Glucose Fasting Glucose Lactic Acid Calcium Total Bilirubin AST ALT Alkaline Phosphatase Total Protein Albumin Lipase Gastric Occult Blood COVID-19 (EVELYN) Negative COVID-[employer] See Note Blood Type Antibody Screen 03/22/21 03/22/21 03/22/21 16:18 16:18 17:48 WBC RBC Hgb Hct MCV MCH MCHC RDW Plt Count MPV Immature Gran % (Auto) Neut % (Auto) Lymph % (Auto) [place] % (Auto) Eos % (Auto) Baso % (Auto) Lymph # (Auto) [place] # (Auto) Eos # (Auto) Baso # (Auto) Abs Immat Gran (auto) Absolute Neuts (auto) Absolute Nucleated RBC Nucleated RBC % (auto) PT INR Sodium 139 Potassium 3.9 Chloride 105 Carbon Dioxide 26 Anion Gap 12 BUN 11 Creatinine 0.69 Estim Creat Clear Calc 71.9 Estimated GFR > 60 Random Glucose Fasting Glucose 133 H Lactic Acid 0.6 Calcium 8.8 D Total Bilirubin AST ALT Alkaline Phosphatase Total Protein Albumin Lipase Gastric Occult Blood COVID-19 (EVELYN) COVIDProspX Com Blood Type O Positive Antibody Screen NEGATIVE 03/23/21 03/23/21 03/23/21 05:13 05:29 05:29 WBC 7.7 RBC 4.16 L Hgb 13.9 Hct 39.3 MCV 94.5 MCH 33.4 H MCHC 35.4 H RDW 12.1 Plt Count 253 MPV 9.7 Immature Gran % (Auto) 0.1 Neut % (Auto) 76.0 H Lymph % (Auto) 8.7 L [place] % (Auto) 14.2 H Eos % (Auto) 0.5 Baso % (Auto) 0.5 Lymph # (Auto) 0.7 L [place] # (Auto) 1.1 Eos # (Auto) 0.0 Baso # (Auto) 0.0 Abs Immat Gran (auto) 0.01 Absolute Neuts (auto) 5.8 Absolute Nucleated RBC 0.000 Nucleated RBC % (auto) 0.0 PT INR Sodium 139 Potassium 4.5 Chloride 105 Carbon Dioxide 26 Anion Gap 13 BUN 8 L Creatinine 0.73 Estim Creat Clear Calc 68.0 Estimated GFR > 60 Random Glucose Fasting Glucose 160 H Lactic Acid Calcium 8.6 Total Bilirubin AST ALT Alkaline Phosphatase Total Protein Albumin Lipase Gastric Occult Blood POS H COVID-19 (EVELYN) COVID-19 [employer] Blood Type Antibody Screen 03/24/21 03/24/21 09:16 09:16 WBC 8.0 RBC 4.06 L Hgb 13.3 Hct 37.5 MCV 92.4 MCH 32.8 MCHC 35.5 H RDW 11.9 Plt Count 261 MPV 9.9 Immature Gran % (Auto) 0.4 Neut % (Auto) 68.2 Lymph % (Auto) 16.6 L [place] % (Auto) 13.6 H Eos % (Auto) 0.8 Baso % (Auto) 0.4 Lymph # (Auto) 1.3 [place] # (Auto) 1.1 Eos # (Auto) 0.1 Baso # (Auto) 0.0 Abs Immat Gran (auto) 0.03 Absolute Neuts (auto) 5.4 Absolute Nucleated RBC 0.000 Nucleated RBC % (auto) 0.0 PT INR Sodium 139 Potassium 4.4 Chloride 103 Carbon Dioxide 28 Anion Gap 12 BUN 6 L Creatinine 0.66 Estim Creat Clear Calc 75.1 Estimated GFR > 60 Random Glucose Fasting Glucose 110 H Lactic Acid Calcium 8.9 Total Bilirubin AST ALT Alkaline Phosphatase Total Protein Albumin Lipase Gastric Occult Blood COVID-19 (EVELYN) COVID-19 [employer] Blood Type Antibody Screen Date of Service: 03/22/21 Procedure(s): XR chest 1V CLINICAL INFORMATION: Cough COMPARISON: 08/19/2020 TECHNIQUE: Frontal view of the chest was obtained. FINDINGS: Hyperexpanded lungs. Linear left basilar atelectasis. No dense consolidation. No pleural effusion or pneumothorax. The cardiomediastinal silhouette is within normal limits. No acute osseous abnormality. IMPRESSION: Linear left basilar atelectasis. No dense consolidation. Airway Heart: RRR Lungs: CTAB Assessment and Plan Assessment Anesthesia Assessment: Anesthesia Plan Discussed and Chart Reviewed Final Anesthetic Review Family History of Problems with Anesthesia: No History of Problems with Anesthesia: No NPO: Yes ASA Class: II and Emergency Final Preanesthetic Review: No Changes in Pt Med Stat, Meds/Allgs Chart Reviewed, Consent Obtained/Reviewed and Anes Risks/Benef Reviewed Patient Risk: Intermediate Procedure Risk: Intermediate Assessment/Block/Sedation in SS: Assess/Block/Sedation-SS Anesthetic Plan Anesthetic Plan: GA Disposition: Standard PACU and Inp. Admit - Standard Bed
--- NOTE | 2021-03-25 15:22 | P.OP_ITS ---
Operative Note Operative Note Date of Service: 03/25/21 Narrative: Preop diagnosis: Small bowel obstruction Postop diagnosis: Small bowel obstruction from extensive postop adhesions, with a segment of small bowel with stricturing, and a 2nd segment with patchy ischemic changes Procedure: Laparotomy, extensive lysis of adhesions, small-bowel resection x2 segments Surgeon: Torey Benites MD information technology assistant: STEPHANIE Victoria The patient is a 56-year-old female with multiple surgeries in the past including hysterectomy, cholecystectomy, lysis of adhesions, and removal of an ovarian cyst, was admitted last 03/22/2021 because of small-bowel obstruction. She had an NG tube placed but she did not seem to have any significant medical improvement regards to her pain and tenderness. I repeated a CT scan yesterday which showed persistent small bowel obstruction. I therefore explained to her that it would be best to proceed with laparotomy. I explained to the technique of this procedure with possibility of bowel resection. She understood the risks, benefits, and alternatives and she had given consent. She was brought to the operating room and placed supine on the table under general anesthesia via endotracheal tube. A Mauricio catheter were inserted the abdomen is prepped and draped in the usual sterile fashion. A surgical time-out was done. The patient received Cefotan 2 g IV preoperatively I made a midline incision starting from just above the umbilicus going distally to the area of the lower abdomen. This was carried down through the full- thickness of the skin and subcutaneous fat with electrocautery. The fascia was incised carefully. The peritoneum was entered. I then proceeded to incise the rest of the fascia, with careful exposure of the underside to make sure that we were not causing any injury to the small bowel loops. I was actually able to slowly extend the fascial incision to optimize the length of the skin incision. I had to do this in a deliberate and slow fashion because of the presence of lesions surrounding the midline. We had to release adhesions and omentum as we the fascial incision. Eventually, I was able to extend the entire fascial incision. I had to apply Kait clamps on the fascia to retract this and lysed underside of abdominal wall. Medially, we had encountered large amount of adhesions with omentum and small bowel loops adherent to the wall. We had to carefully lyse this with Metzenbaum scissors and blunt dissection as well as electrocautery. Continue with this dissection to expose the entire right side of the abdomen. I had to release omentum that was adherent as well on both sides. We proceeded with dissection on both the left and the right side of the abdomen. This part of the procedure took an extended period of time in view of the amount of adhesions Eventually, as able to release the entire abdominal wall from the rest of the viscera. However, there were still omentum adherent to the small bowel loops and we had to carefully separate this to allow as exposure of the viscera. I was able to visualize the small bowel loops and these were markedly distended, and erythematous. There was note of a lot of ascites as well. Most of the small bowel loops were actually adherent as well pelvis and to other adjacent bowel loops, and we had again to work with a lot of lysis of adhesions with some arm scissors as well as with blunt dissection to separate this small bowel was a way from each other. We were careful to avoid any inadvertent enterotomy. I would notice 1 small area with a small serosal tear which were repaired with seromuscular Dexon 3-0 Lembert type sutures. A lot of the small bowel loops were also adherent to the mesenteric surfaces and we had to carefully separate this as well. Eventually, we were able to mobilize most of these markedly distended small bowel loops and were able to bring this out into the field. There we had also noticed some twisting of the mesentery as well. A lot of the adhesions were now tethering small bowel loops down into the pelvis. We had to carefully retract small bowel to allow visualization. I used the Metzenbaum scissors to carefully divide the adhesions off of the small bowel loops a that time. Some of the adhesions were very dense and appeared to be fibrous thick bands as well. These were divided with the LigaSure Eventually, I was able to release the small bowel loops away from the pelvis. I was able to examine and read the bowel loops from the terminal ileum all the way to the ligament of Treitz . There was note of a segment in what appeared to be the ileum stricture ring and stenosis from this fibrous band. This did not seem to distend at all despite as dissecting more of the fibrous adhesions surrounding this. There was note of distal collapse as well of the small bowel loops at this junction. I therefore decided to this short segment stenosis as the seemed to be an obvious transition point. I created a mesenteric window proximal to distal to this. I transected the small bowel loops with JACQUELINE 60 mm staplers. I then resected this segment the LigaSure and this was sent as a specimen. I proceeded to then do a [id number] anastomosis. I aligned the transected loops together. I opened up the apex of each staple line to enter the lumen. I positioned each arm of the JACQUELINE 60 mm stapler into the lumen. I aligned the stapler at the anti mesenteric part of the lumen and this was fired. We made sure that there were no bowel loops nor a very trapped between the isaias. I examined the common and this appeared to have an intact staple line. I then completed the anastomosis by closing the enterotomy with a TA 60 mm stapler. I examined the staple lines from out side the lumen and these all appeared to be intact. I applied a seromuscular stitch at the crotch remove any tension from the staple line. Closed the short mesenteric defect with a running Dexon 3-0 stitch. Examination of the more proximal small bowel loops showed that this were all markedly distended and fluid-filled. I was particularly concerned about 1 long segment in what seemed to be the jejunum that had some significant hemorrhagic changes likely from ischemia. This appeared to be patchy. We waited for few minutes to see if this would improve. This did pink up a little bit but I was concerned that this may may develop into full thickness hemorrhagic ischemia so I decided to resect this long segment as well. I chose a point of transection proximal and distal to this area and these margins were transected with JACQUELINE 60 mm staplers through small mesenteric defects. I removed the segment by using the LigaSure to divide the attached mesentery. This was sent as a specimen. Then proceeded to do our [id number] anastomosis again. I opened up the apex of the staple line. I actually able to suction out the bowel loops this enterotomies to decompress this. I then aligned the bowel loops at the anti mesenteric margin, and inserted each arm of the JACQUELINE 60 mm stapler. This was fired at the anti mesenteric border with care being taken so as to make sure that there were no bowel loops trapped between the staple lines. I then completed the anastomosis by closing the enterotomy with a TA 60 mm stapler. Examination of the staple lines showed these all appeared to be intact. I applied a seromuscular stitch at the crotch of the staple line to release tension. I closed the mesenteric defect with a running Dexon 3-0 stitch. I copiously irrigated. Re-examine both staple lines and these all appeared to be viable. There were no bowel injury or any bleeding that was seen. Once hemostasis was ensured, I proceeded to then close the fascia with a running Maxon 1 stitch. Skin closure was achieved with skin isaias. The incision was infiltrated with Marcaine 0.5% for postop analgesia. The procedure was then completed The patient tolerated the procedure well. There were no complications noted. Initial and final counts of sponges and instruments were correct. Estimated blood loss was about 50 cc . The patient was extubated without difficulty and transferred to the recovery room with stable vital signs.
--- NOTE | 2021-03-25 15:24 | P.BOP_ITS ---
Brief Operative Note Date of Service: 03/25/21 <Dora Victoria PA-C - Last Filed: 03/25/21 15:25> Pre-op diagnosis: SBO <Dora Victoria PA-C - Last Filed: 03/25/21 15:25> Post-op diagnosis: same <Dora Victoria PA-C - Last Filed: 03/25/21 15:25> Procedure: exploratory laparotomy, extensive lysis of adhesions, small bowel resection x 2 <Dora Victoria PA-C - Last Filed: 03/25/21 15:25> Surgeon: ABDULLAHI ZARATE MD <Dora Victoria PA-C - Last Filed: 03/25/21 15:25> Anesthesia: GETA <Dora Victoria PA-C - Last Filed: 03/25/21 15:25> Was an Casting House Worker used for this Procedure?: Yes <Dora Victoria PA-C - Last Filed: 03/25/21 15:25> No <Abdullahi Zarate MD - Last Filed: 03/26/21 08:11> Casting House Worker: Dora Victoria <Dora Victoria PA-C - Last Filed: 03/25/21 15:25> Estimated blood loss (mL): 20 <Dora Victoria PA-C - Last Filed: 03/25/21 15:25> Pathology: other (small bowel) <Dora Victoria PA-C - Last Filed: 03/25/21 15:25> Condition: stable <DOMINIQUE Diaz Last Filed: 03/25/21 15:25> Disposition: PACU <DOMINIQUE Diaz Last Filed: 03/25/21 15:25>
[2021-03-25] MEDS: ondansetron HCL 4 MG/2 ML VIAL IVPUSH (15:41)
[2021-03-25] MEDS: HYDROmorphone HCl 0.5 MG/0.5 ML SYRINGE 0.25 MG IVPUSH ×4 (15:41→16:00)
--- NOTE | 2021-03-25 16:50 | PM.EVENT ---
Event Note Date of Service: 03/25/21 Event Note: Patient seen postoperatively She underwent and stabilized of adhesions and small-bowel resection this afternoon She appears to have adequate pain control Good urine output Stable vital signs Dressings dry Pain management - [facility] ordered Sister Seema updated, explained procedure to her.
[2021-03-25] MEDS: HYDROmorphone HCl/NS 10 MG/50 ML PIGGYBACK IV (19:36)
--- NOTE | 2021-03-25 23:55 | PC.NURSE ---
at 2325 building custodian pump change in program was witnessed by this RN increase of basal rate to 0.3 mg/h and bolus to 0.3 mg /h pt also received loading dose of 1 mg. PRIMARY RN DYLAN AND andre SHI ALSO WITNESSED THIS CHANGE NOT able to cosign in computer d/t no cosignature requierement in program
[2021-03-26] VITALS (18 sets, daily range): BP systolic 103–121; BP diastolic 52–62; PULSE 83–100; RESP 14–20; TEMP 36.4–37.1; O2SAT 94–97
--- NOTE | 2021-03-26 01:42 | PC.NURSE ---
Addendum entered by Karrie Foster RN 03/26/21 06:15: 0610; INJECTION MOLD TOOLING TECHNICIAN dilaudid bag changed with Sheron HERNÁNDEZ. 2 mls wasted from previous bag with Sheron [facility]ERNÁNDEZ in [facility]. Original Note: @ 1936 INJECTION MOLD TOOLING TECHNICIAN Dilaudid was initiated by previous RN at change of shift; 0.2 mg bolus with interval 10 min. Upon pain assessment at 2000, patient reporting 10/10 abdominal pain. Residential Manager services utilized to educate patient of appropriate use of INJECTION MOLD TOOLING TECHNICIAN. This RN assessed patient again at 2200, patient reporting constant 10/10 abdominal pain. Per corporate relations director, medication is not alleviating pain, vital signs stable. Dr. Tolentino notified via [employer]; increased INJECTION MOLD TOOLING TECHNICIAN dilaudid. At 2325, INJECTION MOLD TOOLING TECHNICIAN pump change in program with Ashley HERNÁNDEZ, and witnessed by Jami HERNÁNDEZ; loading dose (mg): 1, basal rate (mg/hr): 0.3, patient bolus (mg): 0.3, bolus interval (min): 10, # boluses/hr: 6. INJECTION MOLD TOOLING TECHNICIAN pump program change was not co-signed in the system due to no prompt in the MAR to co-sign. Nursing supervisor powdered metal made aware. Upon assessment at 0000, patient reporting pain level 2/10, patient reporting pain level improved, appears comfortable, vital signs stable.
[2021-03-26 05:35] LABS: Basophils Absolute Auto 0.1 X10*3/uL (0.0-0.2); Basophils Percent Auto 0.5 % (0-2); Eosinophils Absolute Auto 0.1 X10*3/uL (0.0-0.4); Eosinophils Percent Auto 0.8 % (0-4); Hematocrit 35.7 % (37.0-47.0); Hemoglobin 12.5 g/dl (12.0-16.0); Imm Gran Abs Auto 0.04 X10*3/uL (0.00-0.03); Imm Gran Pct Auto 0.4 % (0.0-0.4); Lymphocytes Absolute Auto 1.7 X10*3/uL (1.2-4.9); Lymphocytes Percent Auto 15.6 % (20-40); MANUAL DIFF FLAG SCAN; Mean Corpuscular Hemoglobin 32.8 pg (27.0-33.0); Mean Corpuscular Volume 93.7 fL (80.0-98.0); Monocytes Absolute Auto 1.5 X10*3/uL (0.1-1.2); Monocytes Percent Auto 14.2 % (2-11); Neutrophils Absolute Auto 7.3 x10*3/uL (2.0-8.3); Neutrophils Percent Auto 68.5 % (45-73); Platelet Count 275 X10*3/uL (160-400); Red Blood Count 3.81 X10*6/uL (4.20-5.50); Red Cell Distribution Width 12.1 % (11.0-16.0); SCAN SMEAR FLAG 1; White Blood Count 10.7 X10*3/uL (4.8-10.8)
[2021-03-26 05:55] LABS: Anion Gap 11 (12-20); Blood Urea Nitrogen 7 mg/dL (9-16); Calcium 7.9 mg/dL (8.4-10.2); Carbon Dioxide 28 mmol/L (22-29); Chloride 102 mmol/L (96-108); Creatinine Clr Calc Pharmacy 76.3; Estimated Glomerular Filt Rate > 60; Glucose Fasting 132 mg/dL (60-99); Potassium 4.2 mmol/L (3.3-5.1); Sodium 137 mmol/L (135-145)
[2021-03-26 05:57] LABS: SLIDE REVIEW VERIFIED
[2021-03-26] MEDS: HYDROmorphone HCl/NS 10 MG/50 ML PIGGYBACK 1.5 MG IV ×2 (06:10→15:05)
[2021-03-26] MEDS: buPROPion HCl XL 150 MG TAB.ER.24H PO (09:11)
[2021-03-26] MEDS: Nicotine 21 MG PATCH.TD24 TRANSDERMA (09:11)
--- NOTE | 2021-03-26 09:11 | P.PNGS_ITS ---
Subjective Subjective Date of Service: 03/26/21 <Dora Victoria PA-C - Last Filed: 03/26/21 09:16> 03/26/21 <Torey Benites MD - Last Filed: 03/26/21 09:21> Interval history: Feels much better this morning. Had difficulty with pain last night but much improved this morning. Using LOZENGE DOUGH MIXER ~10-20min. C/o throat discomfort. Denies flatus. Has not been OOB. <Dora Victoria PA-C - Last Filed: 03/26/21 09:16> Physical Exam Vital Signs: Vital Signs: Last Vital Signs Temp 97.9 F 03/26/21 07:47 Pulse 88 03/26/21 07:47 Resp 16 03/26/21 07:47 BP 113/53 L 03/26/21 07:47 Pulse Ox 94 03/26/21 07:47 Body Mass Index 19.1 <Dora Victoria PA-C - Last Filed: 03/26/21 09:16> Const: General: comfortable, no acute distress and alert <Dora Victoria PA-C - Last Filed: 03/26/21 09:16> Orientation/consciousness: patient oriented x3 <DOMINIQUE Diaz Last Filed: 03/26/21 09:16> HENMT: Other: NGT in place <Dora Victoria PA-C - Last Filed: 03/26/21 09:16> Resp: Effort & Inspection: normal respiratory effort <Dora Victoria PA-C - Last Filed: 03/26/21 09:16> GI: Inspection: No distended and Yes incision (dressing c/d/i) <DOMINIQUE Diaz Last Filed: 03/26/21 09:16> Palpation (GI): Soft to palpation, Tenderness to palpation present (GI) (moderate, incisional), no guarding and not rigid <DOMINIQUE Diaz Last Filed: 03/26/21 09:16> Percussion: Yes normal to percussion <DOMINIQUE Diaz Last Filed: 03/26/21 09:16> Skin: General skin exam: no rashes or lesions noted <Dora Victoria PA-C - Last Filed: 03/26/21 09:16> Neuro: General: patient oriented x3 <Dora Victoria PA-C - Last Filed: 03/26/21 09:16> Extrem: General: Yes no clubbing, cyanosis or edema <Dora Victoria PA-C - Last Filed: 03/26/21 09:16> Objective Data Active Medications Albuterol Sulfate (Albuterol Sulfate 90 Mcg 8 Gm Inhaler) 2 puff INHALE Q4H PRN PRN Reason: Shortness Of Breath Amitriptyline HCl (Amitriptyline Hcl 25 Mg Tablet) 25 mg PO BEDTIME [facility] Last Admin: 03/25/21 20:14 Dose: Not Given Documented by: TASHA Non-Admin Reason: NPO Bupropion HCl (Bupropion Hcl Xl 150 Mg Tab.Er.24h) 150 mg PO DAILY [facility] Last Admin: 03/25/21 08:35 Dose: Not Given Documented by: ERIC Non-Admin Reason: NPO Enoxaparin Sodium (Enoxaparin Sodium 40 Mg/0.4 Ml Syringe) 40 mg SUBCUT Q24H [facility] Last Admin: 03/25/21 11:00 Dose: Not Given Documented by: ERIC Non-Admin Reason: Patient Refused Famotidine (Famotidine/Pf 20 Mg/2 Ml Vial) 20 mg IVPUSH Q12H [facility] Last Admin: 03/25/21 23:22 Dose: 20 mg Documented by: TASHA Potassium Chloride/Dextrose/Sod Cl () 20 meq in 1,000 mls @ 100 mls/hr IVCONT .Q10H [facility] Last Admin: 03/26/21 06:10 Dose: Not Given Documented by: TASHA Non-Admin Reason: IV Running Acetaminophen (Ofirmev) 1,000 mg in 100 mls @ 400 mls/hr IV Q6H [facility] Last Infusion: 03/26/21 05:00 Dose: 0 mls/hr Documented by: TASHA Hydromorphone HCl (Dilaudid) 10 mg in 50 mls @ 0 mls/hr IV .Q0M [facility]; Protocol Last Admin: 03/26/21 06:10 Dose: 0.3 mg/hr, 1.5 mls/hr Documented by: TASHA Naloxone HCl (Naloxone Hcl 0.4 Mg/Ml Vial) 0.2 mg IVPUSH Q2M PRN PRN Reason: Excessive sedation or RR < 8 Nicotine (Nicotine 21 Mg Patch.Td24) 21 mg TRANSDERMA DAILY [facility] Last Admin: 03/25/21 08:41 Dose: 21 mg Documented by: ERIC Ondansetron HCl (Ondansetron Hcl 4 Mg/2 Ml Vial) 4 mg IVPUSH Q8H PRN PRN Reason: Nausea Last Admin: 03/23/21 06:41 Dose: 4 mg Documented by: KEVIN Pharmacy Consult (Consult Rx Perform Med Rec) 1 each MISCELLANE ONCE PRN PRN Reason: Consult order Trazodone HCl (Trazodone Hcl 50 Mg Tablet) 50 mg PO BEDTIME [facility] Last Admin: 03/25/21 20:14 Dose: Not Given Documented by: TASHA Non-Admin Reason: NPO <Dora Victoria PA-C - Last Filed: 03/26/21 09:16> Labs CBC & Chem 7: : 03/26/21 05:10 03/26/21 05:10 <Dora Victoria PA-C - Last Filed: 03/26/21 09:16> Labs: Laboratory Results - last 24 hr 03/25/21 03/26/21 03/26/21 12:01 05:10 05:10 MCV 93.7 MCH 32.8 MCHC 35.0 RDW 12.1 Plt Count 275 MPV 10.0 Immature Gran % (Auto) 0.4 Neut % (Auto) 68.5 Lymph % (Auto) 15.6 L Swisher % (Auto) 14.2 H Eos % (Auto) 0.8 Baso % (Auto) 0.5 Lymph # (Auto) 1.7 Swisher # (Auto) 1.5 H Eos # (Auto) 0.1 Baso # (Auto) 0.1 Abs Immat Gran (auto) 0.04 H Absolute Neuts (auto) 7.3 Absolute Nucleated RBC 0.000 Nucleated RBC % (auto) 0.0 Smear Tech's Comments VERIFIED Anion Gap 11 L Estim Creat Clear Calc 76.3 Estimated GFR > 60 Fasting Glucose 132 H Calcium 7.9 L D Blood Type O Positive Antibody Screen NEGATIVE <Dora Victoria PA-C - Last Filed: 03/26/21 09:16> Microbiology Microbiology Results: Microbiology 03/22/21 05:43 Blood Culture - Preliminary Blood - Venous Clostridium species <Dora Victoria PA-C - Last Filed: 03/26/21 09:16> Procedures Date of Service Date of Service: 03/26/21 <Dora Victoria PA-C - Last Filed: 03/26/21 09:16> Progress Note: A&P Assessment and plan (1) Small bowel obstruction: Status: Acute <DOMINIQUE Diaz Last Filed: 03/26/21 09:16> (2) S/P exploratory laparotomy: Status: Acute <Dora Victoria PA-C - Last Filed: 03/26/21 09:16> Assessment and Plan: Patient states that she feels much better Still on LOZENGE DOUGH MIXER for pain postop Abdomen soft Looks a lot more comfortable compared to preop Encourage ambulation/out of bed Incentive spirometry Pain management Possibly DC NG tube tomorrow Okay to DC Mauricio today Seen and examined - agree with STEPHANIE Victoria <Torey Benites MD - Last Filed: 03/26/21 09:21> (3) Moderate malnutrition: Status: Acute <Dora Victoria PA-C - Last Filed: 03/26/21 09:16> Assessment and Plan: 56 year old female with history of multiple abdominal surgeries admitted for abd pain, N/V found to have SBO on CT. She is now POD #1 s/p ex lap, DONA, small bowel resection x2. Intra op findings included a mall bowel obstruction from extensive adhesions, with a segment of small bowel with stricturing and a 2nd segment with patchy ischemic changes. She feels much better this morning and is doing well post op. VSS. Abd exam benign- soft, appropriate post op tenderness, dressing c/d/i. NGT continues with bilious output and there is no evidence of return of GI fxn yet. Cont NPO, NGT, IVF until some GI fxn returns. Strongly encouraged OOB/ambulation this morning. Cont LOZENGE DOUGH MIXER, ofirmev for pain control. AM labs reviewed. Resume lovenox. <Dora Victoria PA-C - Last Filed: 03/26/21 09:16> Fall Risk Details Current Medications: Current Medications Albuterol Sulfate (Albuterol Sulfate 90 Mcg 8 Gm Inhaler) 2 puff INHALE Q4H PRN PRN Reason: Shortness Of Breath Amitriptyline HCl (Amitriptyline Hcl 25 Mg Tablet) 25 mg PO BEDTIME [facility] Last Admin: 03/25/21 20:14 Dose: Not Given Documented by: Bupropion HCl (Bupropion Hcl Xl 150 Mg Tab.Er.24h) 150 mg PO DAILY [facility] Last Admin: 03/25/21 08:35 Dose: Not Given Documented by: Enoxaparin Sodium (Enoxaparin Sodium 40 Mg/0.4 Ml Syringe) 40 mg SUBCUT Q24H [facility] Last Admin: 03/25/21 11:00 Dose: Not Given Documented by: Famotidine (Famotidine/Pf 20 Mg/2 Ml Vial) 20 mg IVPUSH Q12H [facility] Last Admin: 03/25/21 23:22 Dose: 20 mg Documented by: Potassium Chloride/Dextrose/Sod Cl () 20 meq in 1,000 mls @ 100 mls/hr IVCONT .Q10H [facility] Last Admin: 03/26/21 06:10 Dose: Not Given Documented by: Acetaminophen (Ofirmev) 1,000 mg in 100 mls @ 400 mls/hr IV Q6H [facility] Last Infusion: 03/26/21 05:00 Dose: Infused Documented by: Hydromorphone HCl (Dilaudid) 10 mg in 50 mls @ 0 mls/hr IV .Q0M [facility]; Protocol Last Admin: 03/26/21 06:10 Dose: 0.3 mg/hr, 1.5 mls/hr Documented by: Naloxone HCl (Naloxone Hcl 0.4 Mg/Ml Vial) 0.2 mg IVPUSH Q2M PRN PRN Reason: Excessive sedation or RR < 8 Nicotine (Nicotine 21 Mg Patch.Td24) 21 mg TRANSDERMA DAILY [facility] Last Admin: 03/25/21 08:41 Dose: 21 mg Documented by: Ondansetron HCl (Ondansetron Hcl 4 Mg/2 Ml Vial) 4 mg IVPUSH Q8H PRN PRN Reason: Nausea Last Admin: 03/23/21 06:41 Dose: 4 mg Documented by: Pharmacy Consult (Consult Rx Perform Med Rec) 1 each MISCELLANE ONCE PRN PRN Reason: Consult order Trazodone HCl (Trazodone Hcl 50 Mg Tablet) 50 mg PO BEDTIME [facility] Last Admin: 03/25/21 20:14 Dose: Not Given Documented by: <Dora Victoria PA-C - Last Filed: 03/26/21 09:16> Time Spent With Patient Time: Total time spent is greater than 50% in coordination of care (as documented) at patient's floor/unit and/or counseling patient: <Dora Victoria PA-C - Last Filed: 03/26/21 09:16> Time with patient: 25 - 35 minutes <Dora Victoria PA-C - Last Filed: 03/26/21 09:16> Quality Stroke Does the patient have a stroke diagnosis?: No <Dora Victoria PA-C - Last Filed: 03/26/21 09:16> VTE Prior VTE?: No <Dora Victoria PA-C - Last Filed: 03/26/21 09:16> VTE Risk Level:: Surgical - moderate <Dora Victoria PA-C - Last Filed: 03/26/21 09:16> VTE Device Contraindication: Treatment Not Indicated <Dora Victoria PA-C - Last Filed: 03/26/21 09:16> VTE Drug Contraindication: N/A - Med Ordered <Dora Victoria PA-C - Last Filed: 03/26/21 09:16>
[2021-03-26] MEDS: Famotidine/PF 20 MG/2 ML VIAL IVPUSH ×2 (11:50→23:55)
[2021-03-26] MEDS: KCl 20 mEq in 5% Dex/0.45% Sod 20 MEQ/1,000 ML IV.SOLN 100 MEQ IVCONT ×2 (12:31→21:33)
--- NOTE | 2021-03-26 13:10 | MHC.CLN ---
Addendum entered by Nori Tinoco, KEYANNA 03/26/21 15:14: AGREE WITH PROVIDER'S ASSESSMENT BELOW Original Note: F/U PT IS DAY 4 NPO PT WILL REMAIN NPO PER PA CONSULT RD IF TPN OR PPN IS NEEDED
[2021-03-26] MEDS: traZODone HCL 50 MG TABLET PO (21:27)
[2021-03-26] MEDS: Amitriptyline HCl 25 MG TABLET PO (21:27)
[2021-03-27] VITALS (16 sets, daily range): BP systolic 97–134; BP diastolic 50–63; PULSE 83–95; RESP 14–17; TEMP 36.3–37.2; O2SAT 94–98
[2021-03-27] MEDS: HYDROmorphone HCl/NS 10 MG/50 ML PIGGYBACK 1.5 MG IV ×2 (08:50→17:05)
[2021-03-27] MEDS: KCl 20 mEq in 5% Dex/0.45% Sod 20 MEQ/1,000 ML IV.SOLN 100 MEQ IVCONT (08:55)
[2021-03-27] MEDS: Nicotine 21 MG PATCH.TD24 TRANSDERMA (08:56)
[2021-03-27] MEDS: buPROPion HCl XL 150 MG TAB.ER.24H PO (08:56)
--- NOTE | 2021-03-27 09:07 | P.PNGS_ITS ---
Subjective Subjective Date of Service: 03/27/21 <Dora Victoria PA-C - Last Filed: 03/27/21 09:10> 03/27/21 <Torey Benites MD - Last Filed: 03/27/21 13:07> Interval history: Having a lot of pain this morning. MOVER HELPER was not working, now adjusted by RN. Denies flatus. Still having moderate NGT output. <Dora Victoria PA-C - Last Filed: 03/27/21 09:10> Physical Exam Vital Signs: Vital Signs: Last Vital Signs Temp 98.7 F 03/27/21 07:22 Pulse 90 03/27/21 07:22 Resp 16 03/27/21 08:50 BP 121/61 03/27/21 07:22 Pulse Ox 97 03/27/21 07:22 Body Mass Index 19.1 <Dora Victoria PA-C - Last Filed: 03/27/21 09:10> Const: General: alert and other (in pain) <Dora Victoria PA-C - Last Filed: 03/27/21 09:10> Orientation/consciousness: patient oriented x3 <Dora Victoria PA-C - Last Filed: 03/27/21 09:10> Resp: Effort & Inspection: normal respiratory effort <Dora Victoria PA-C - Last Filed: 03/27/21 09:10> GI: Inspection: No distended and Yes incision (dressing c/d/i) <Dora Victoria PA-C - Last Filed: 03/27/21 09:10> Palpation (GI): Soft to palpation, Tenderness to palpation present (GI) (incisional), no guarding and not rigid <Dora Victoria PA-C - Last Filed: 03/27/21 09:10> Percussion: Yes normal to percussion <Dora Victoria PA-C - Last Filed: 03/27/21 09:10> Skin: General skin exam: no rashes or lesions noted <Dora Victoria PA-C - Last Filed: 03/27/21 09:10> Neuro: General: patient oriented x3 <DOMINIQUE Diaz Last Filed: 03/27/21 09:10> Objective Data Active Medications Albuterol Sulfate (Albuterol Sulfate 90 Mcg 8 Gm Inhaler) 2 puff INHALE Q4H PRN PRN Reason: Shortness Of Breath Amitriptyline HCl (Amitriptyline Hcl 25 Mg Tablet) 25 mg PO BEDTIME [facility] Last Admin: 03/26/21 21:27 Dose: 25 mg Documented by: SUJATHA Bupropion HCl (Bupropion Hcl Xl 150 Mg Tab.Er.24h) 150 mg PO DAILY [facility] Last Admin: 03/27/21 08:56 Dose: 150 mg Documented by: BRAXTON Enoxaparin Sodium (Enoxaparin Sodium 40 Mg/0.4 Ml Syringe) 40 mg SUBCUT Q24H [facility] Last Admin: 03/25/21 11:00 Dose: Not Given Documented by: ERIC Non-Admin Reason: Patient Refused Famotidine (Famotidine/Pf 20 Mg/2 Ml Vial) 20 mg IVPUSH Q12H [facility] Last Admin: 03/26/21 23:55 Dose: 20 mg Documented by: SUJATHA Potassium Chloride/Dextrose/Sod Cl () 20 meq in 1,000 mls @ 100 mls/hr IVCONT .Q10H [facility] Last Admin: 03/27/21 08:55 Dose: 100 mls/hr Documented by: BRAXTON Acetaminophen (Ofirmev) 1,000 mg in 100 mls @ 400 mls/hr IV Q6H [facility] Last Admin: 03/27/21 08:55 Dose: 400 mls/hr Documented by: BRAXTON Hydromorphone HCl (Dilaudid) 10 mg in 50 mls @ 0 mls/hr IV .Q0M [facility]; Protocol Last Admin: 03/27/21 08:50 Dose: 0.3 mg/hr, 1.5 mls/hr Documented by: BRAXTON Multi-Ingred Medicated Throat [place]uff (Throat [place], Medicated 20 Ml Bottle) 1 spray MUCOUS MEM Q2H PRN PRN Reason: throat discomfort Last Admin: 03/26/21 12:29 Dose: 1 spray Documented by: TANISHA Naloxone HCl (Naloxone Hcl 0.4 Mg/Ml Vial) 0.2 mg IVPUSH Q2M PRN PRN Reason: Excessive sedation or RR < 8 Nicotine (Nicotine 21 Mg Patch.Td24) 21 mg TRANSDERMA DAILY [facility] Last Admin: 03/27/21 08:56 Dose: 21 mg Documented by: BRAXTON Ondansetron HCl (Ondansetron Hcl 4 Mg/2 Ml Vial) 4 mg IVPUSH Q8H PRN PRN Reason: Nausea Last Admin: 03/23/21 06:41 Dose: 4 mg Documented by: KEVIN Pharmacy Consult (Consult Rx Perform Med Rec) 1 each MISCELLANE ONCE PRN PRN Reason: Consult order Trazodone HCl (Trazodone Hcl 50 Mg Tablet) 50 mg PO BEDTIME [facility] Last Admin: 03/26/21 21:27 Dose: 50 mg Documented by: SUJATHA <Dora Victoria PA-C - Last Filed: 03/27/21 09:10> Labs CBC & Chem 7: : 03/26/21 05:10 03/26/21 05:10 <Dora Victoria PA-C - Last Filed: 03/27/21 09:10> Microbiology Microbiology Results: Microbiology 03/22/21 05:43 Blood Culture - Final Blood - Venous No growth after 5 days. 03/22/21 05:43 Blood Culture - Preliminary Blood - Venous Clostridium species <Dora Victoria PA-C - Last Filed: 03/27/21 09:10> Procedures Date of Service Date of Service: 03/27/21 <Dora Victoria PA-C - Last Filed: 03/27/21 09:10> Progress Note: A&P Assessment and plan (1) S/P exploratory laparotomy: Status: Acute <DOMINIQUE Diaz Last Filed: 03/27/21 09:10> (2) Moderate malnutrition: Status: Acute <DOMINIQUE Diaz Last Filed: 03/27/21 09:10> (3) Small bowel obstruction: Status: Acute <DOMINIQUE Diaz Last Filed: 03/27/21 09:10> Assessment and Plan: Status post small bowel resection x2 segments Had pain and she is early this morning - MOVER HELPER pump was not working Denies flatus Distended but soft Patient instructed to get out of bed and ambulate NG tube in place Await return of GI function Pain management Seen and examined - agree with STEPHANIE Victoria <Torey Benites MD - Last Filed: 03/27/21 13:07> Assessment and Plan: 56 year old female with history of multiple abdominal surgeries admitted for abd pain, N/V found to have SBO on CT. She is now POD #2 s/p ex lap, DONA, small bowel resection x2. Intra op findings included a mall bowel obstruction from extensive adhesions, with a segment of small bowel with stric turing and a 2nd segment with patchy ischemic changes. Having difficulty with pain this morning due to MOVER HELPER malfunction, however she wants to keep the MOVER HELPER. No evidence of return of GI fxn yet. VSS. Abd exam benign- soft, appropriate post op tenderness, dressing c/d/i- will return to remove. NGT continues with bilious output. Cont NPO, NGT, IVF until some GI fxn returns. Strongly encouraged OOB/ambulation this morning. Cont MOVER HELPER, ofirmev for pain control. Remove yao. Will begin PPN as has been NPO for 5 days. <Dora Victoria PA-C - Last Filed: 03/27/21 09:10> Fall Risk Details Current Medications: Current Medications Albuterol Sulfate (Albuterol Sulfate 90 Mcg 8 Gm Inhaler) 2 puff INHALE Q4H PRN PRN Reason: Shortness Of Breath Amitriptyline HCl (Amitriptyline Hcl 25 Mg Tablet) 25 mg PO BEDTIME [facility] Last Admin: 03/26/21 21:27 Dose: 25 mg Documented by: Bupropion HCl (Bupropion Hcl Xl 150 Mg Tab.Er.24h) 150 mg PO DAILY [facility] Last Admin: 03/27/21 08:56 Dose: 150 mg Documented by: Enoxaparin Sodium (Enoxaparin Sodium 40 Mg/0.4 Ml Syringe) 40 mg SUBCUT Q24H [facility] Last Admin: 03/25/21 11:00 Dose: Not Given Documented by: Famotidine (Famotidine/Pf 20 Mg/2 Ml Vial) 20 mg IVPUSH Q12H [facility] Last Admin: 03/26/21 23:55 Dose: 20 mg Documented by: Potassium Chloride/Dextrose/Sod Cl () 20 meq in 1,000 mls @ 100 mls/hr IVCONT .Q10H [facility] Last Admin: 03/27/21 08:55 Dose: 100 mls/hr Documented by: Acetaminophen (Ofirmev) 1,000 mg in 100 mls @ 400 mls/hr IV Q6H [facility] Last Admin: 03/27/21 08:55 Dose: 400 mls/hr Documented by: Hydromorphone HCl (Dilaudid) 10 mg in 50 mls @ 0 mls/hr IV .Q0M [facility]; Protocol Last Admin: 03/27/21 08:50 Dose: 0.3 mg/hr, 1.5 mls/hr Documented by: Multi-Ingred Medicated Throat [place]uff (Throat [place], Medicated 20 Ml Bottle) 1 spray MUCOUS MEM Q2H PRN PRN Reason: throat discomfort Last Admin: 03/26/21 12:29 Dose: 1 spray Documented by: Naloxone HCl (Naloxone Hcl 0.4 Mg/Ml Vial) 0.2 mg IVPUSH Q2M PRN PRN Reason: Excessive sedation or RR < 8 Nicotine (Nicotine 21 Mg Patch.Td24) 21 mg TRANSDERMA DAILY [facility] Last Admin: 03/27/21 08:56 Dose: 21 mg Documented by: Ondansetron HCl (Ondansetron Hcl 4 Mg/2 Ml Vial) 4 mg IVPUSH Q8H PRN PRN Reason: Nausea Last Admin: 03/23/21 06:41 Dose: 4 mg Documented by: Pharmacy Consult (Consult Rx Perform Med Rec) 1 each MISCELLANE ONCE PRN PRN Reason: Consult order Trazodone HCl (Trazodone Hcl 50 Mg Tablet) 50 mg PO BEDTIME [facility] Last Admin: 03/26/21 21:27 Dose: 50 mg Documented by: <Dora Victoria PA-C - Last Filed: 03/27/21 09:10> Time Spent With Patient Time: Total time spent is greater than 50% in coordination of care (as documented) at patient's floor/unit and/or counseling patient: <Dora Victoria PA-C - Last Filed: 03/27/21 09:10> Time with patient: 15 - 24 minutes <Dora Victoria PA-C - Last Filed: 03/27/21 09:10> Quality Stroke Does the patient have a stroke diagnosis?: No <Dora Victoria PA-C - Last Filed: 03/27/21 09:10> VTE Prior VTE?: No <Dora Victoria PA-C - Last Filed: 03/27/21 09:10> VTE Risk Level:: Surgical - moderate <Dora Victoria PA-C - Last Filed: 03/27/21 09:10> VTE Device Contraindication: Treatment Not Indicated <Dora Victoria PA-C - Last Filed: 03/27/21 09:10> VTE Drug Contraindication: N/A - Med Ordered <Dora Victoria PA-C - Last Filed: 03/27/21 09:10>
--- NOTE | 2021-03-27 09:27 | MHC.CLN ---
PPN RECOMMENDATION PATIENT IS NPO DAY 5. CONTINUES WITH NGT WITH CONTINUED OUTPUT. DX SBO. RD RECOMMENDS PPN D10AA4.25 03/27/21 DAY 1: D10AA4.25 @ 30 ML PER HOUR. REPLETE LYTES NEEDED. 03/28/21 DAY 2: D10AA4.25 @45 ML/HOUR. REPLETE LYTES NEEDED. CHECK TRIGLYCERIDES. 03/29/21 DAY 3: D10AA4.25 @ 60 ML PER HOUR (GOAL RATE). ADD 17 ML OF 20% LIPIDS. REPLETE LYTES NEEDED. PPN PLUS LIPIDS PROVIDES 1550 KCAL (29.6 KCAL/KG IBW) AND 61 G PROTEIN (1.16 G/KG IBW) DISCUSSED WITH PHARMACY VIA PHONE AND TEXT WITH PA.
[2021-03-27] MEDS: Famotidine/PF 20 MG/2 ML VIAL IVPUSH ×2 (12:33→23:36)
[2021-03-27] MEDS: Enoxaparin Sodium 40 MG/0.4 ML SYRINGE SUBCUT (12:33)
[2021-03-27 13:37] LABS: Anion Gap 13 (12-20); Blood Urea Nitrogen 5 mg/dL (9-16); Calcium 8.4 mg/dL (8.4-10.2); Carbon Dioxide 25 mmol/L (22-29); Chloride 103 mmol/L (96-108); Creatinine Clr Calc Pharmacy 91.9; Estimated Glomerular Filt Rate > 60; Glucose Random 115 mg/dL (60-115); Magnesium 1.7 mg/dL (1.6-2.6); Phosphorus 2.9 mg/dL (2.7-4.5); Potassium 4.1 mmol/L (3.3-5.1); Sodium 137 mmol/L (135-145)
--- NOTE | 2021-03-27 13:49 | MHC.CM.PN ---
EMR REVIEWED, PER SURGICAL PT CONT'S TO C/O PAIN, NPO, NG TUBE CONT'S TO HAVE MOD OUTPUT, NO PLAN FOR D/C AT THIS TIME, CM WILL CONT TO MONITOR D/C NEEDS.
[2021-03-27] MEDS: Amitriptyline HCl 25 MG TABLET PO (21:04)
[2021-03-27] MEDS: traZODone HCL 50 MG TABLET PO (21:04)
[2021-03-28] VITALS (19 sets, daily range): BP systolic 107–137; BP diastolic 44–76; PULSE 78–98; RESP 16–20; TEMP 36.1–37.7; O2SAT 93–98
[2021-03-28] MEDS: HYDROmorphone HCl/NS 10 MG/50 ML PIGGYBACK 1.5 MG IV ×2 (01:29→15:28)
[2021-03-28 06:57] LABS: Anion Gap 12 (12-20); Blood Urea Nitrogen 5 mg/dL (9-16); Calcium 8.4 mg/dL (8.4-10.2); Carbon Dioxide 28 mmol/L (22-29); Chloride 104 mmol/L (96-108); Creatinine Clr Calc Pharmacy 93.7; Estimated Glomerular Filt Rate > 60; Glucose Random 83 mg/dL (60-115); Magnesium 1.8 mg/dL (1.6-2.6); Phosphorus 3.7 mg/dL (2.7-4.5); Sodium 140 mmol/L (135-145); Triglycerides 131 mg/dL
[2021-03-28] MEDS: Nicotine 21 MG PATCH.TD24 TRANSDERMA (08:21)
[2021-03-28] MEDS: buPROPion HCl XL 150 MG TAB.ER.24H PO (08:22)
--- NOTE | 2021-03-28 08:39 | P.PNGS_ITS ---
Subjective Subjective Date of Service: 03/28/21 Interval history: Patient reporting pain from nasogastric tube, requesting removal. She denies passing flatus or moving her bowels. She reports her abdominal pain is improved. Physical Exam Vital Signs: Vital Signs: Last Vital Signs Temp 98.2 F 03/28/21 07:42 Pulse 82 03/28/21 08:00 Resp 18 03/28/21 08:00 BP 116/56 L 03/28/21 08:00 Pulse Ox 95 03/28/21 08:00 Body Mass Index 19.1 Const: General: cooperative and no acute distress Nutritional Appearance: thin Orientation/consciousness: oriented to time Limitations: no limitations Resp: Effort & Inspection: normal respiratory effort, no cough and no respiratory distress GI: Other: Lower midline incision is clean, dry, and intact. Dressings removed. No erythema noted. Abdomen otherwise soft nondistended. Skin: Other: Warm, dry, no rash Neuro: General: oriented to time Extrem: Other: No edema, normal range of motion Objective Data Active Medications Albuterol Sulfate (Albuterol Sulfate 90 Mcg 8 Gm Inhaler) 2 puff INHALE Q4H PRN PRN Reason: Shortness Of Breath Amitriptyline HCl (Amitriptyline Hcl 25 Mg Tablet) 25 mg PO BEDTIME [facility] Last Admin: 03/27/21 21:04 Dose: 25 mg Documented by: JEAN CARLOS Bupropion HCl (Bupropion Hcl Xl 150 Mg Tab.Er.24h) 150 mg PO DAILY [facility] Last Admin: 03/28/21 08:22 Dose: 150 mg Documented by: BRAXTON Enoxaparin Sodium (Enoxaparin Sodium 40 Mg/0.4 Ml Syringe) 40 mg SUBCUT Q24H [facility] Last Admin: 03/27/21 12:33 Dose: 40 mg Documented by: BRAXTON Famotidine (Famotidine/Pf 20 Mg/2 Ml Vial) 20 mg IVPUSH Q12H [facility] Last Admin: 03/27/21 23:36 Dose: 20 mg Documented by: KHRIS Acetaminophen (Ofirmev) 1,000 mg in 100 mls @ 400 mls/hr IV Q6H [facility] Last Infusion: 03/28/21 06:34 Dose: 0 mls/hr Documented by: KHRIS Hydromorphone HCl (Dilaudid) 10 mg in 50 mls @ 0 mls/hr IV .Q0M [facility]; Protocol Last Admin: 03/28/21 01:29 Dose: 0.3 mg/hr, 1.5 mls/hr Documented by: KHRIS Multivitamins 28 ml/ Trace Metals 2.8 ml/ Amino Acids/Electrolytes/Dextrose 720 mls @ 30 mls/hr IV DAILY@1800 [facility] Stop: 03/28/21 17:59 Last Admin: 03/27/21 18:43 Dose: 30 mls/hr Documented by: BRAXTON Multi-Ingred Medicated Throat [place] (Throat [place], Medicated 20 Ml Bottle) 1 spray MUCOUS MEM Q2H PRN PRN Reason: throat discomfort Last Admin: 03/26/21 12:29 Dose: 1 spray Documented by: TANISHA Naloxone HCl (Naloxone Hcl 0.4 Mg/Ml Vial) 0.2 mg IVPUSH Q2M PRN PRN Reason: Excessive sedation or RR < 8 Nicotine (Nicotine 21 Mg Patch.Td24) 21 mg TRANSDERMA DAILY [facility] Last Admin: 03/28/21 08:21 Dose: 21 mg Documented by: BRAXTON Ondansetron HCl (Ondansetron Hcl 4 Mg/2 Ml Vial) 4 mg IVPUSH Q8H PRN PRN Reason: Nausea Last Admin: 03/23/21 06:41 Dose: 4 mg Documented by: KEVIN Pharmacy Consult (Consult Rx Perform Med Rec) 1 each MISCELLANE ONCE PRN PRN Reason: Consult order Trazodone HCl (Trazodone Hcl 50 Mg Tablet) 50 mg PO BEDTIME [facility] Last Admin: 03/27/21 21:04 Dose: 50 mg Documented by: JEAN CARLOS Labs CBC & Chem 7: 03/26/21 05:10 03/28/21 05:43 Labs: Laboratory Results - last 24 hr 03/27/21 03/28/21 12:46 05:43 Anion Gap 13 12 Estim Creat Clear Calc 91.9 93.7 Estimated GFR > 60 > 60 Random Glucose 115 83 Calcium 8.4 D 8.4 Phosphorus 2.9 3.7 Magnesium 1.7 1.8 Albumin 3.0 L D Triglycerides 131 Microbiology Microbiology Results: Microbiology 03/22/21 05:43 Blood Culture - Final Blood - Venous No growth after 5 days. Procedures Date of Service Date of Service: 03/28/21 Progress Note: A&P Assessment and plan (1) S/P exploratory laparotomy: Status: Acute Assessment and Plan: Patient's incisions are clean, dry, and intact without redness or discharge. Awaiting return of bowel function. Nasogastric tube remains elevated there for the tube cannot be removed at this time. (2) Small bowel obstruction: Status: Acute Assessment and Plan: Awaiting return of bowel function decreased nasogastric tube output. (3) Moderate malnutrition: Status: Acute Assessment and Plan: Patient unable to take oral nutrition at this time due to SBO. Continue PPN at current levels. Fall Risk Details Current Medications: Current Medications Albuterol Sulfate (Albuterol Sulfate 90 Mcg 8 Gm Inhaler) 2 puff INHALE Q4H PRN PRN Reason: Shortness Of Breath Amitriptyline HCl (Amitriptyline Hcl 25 Mg Tablet) 25 mg PO BEDTIME [facility] Last Admin: 03/27/21 21:04 Dose: 25 mg Documented by: Bupropion HCl (Bupropion Hcl Xl 150 Mg Tab.Er.24h) 150 mg PO DAILY [facility] Last Admin: 03/28/21 08:22 Dose: 150 mg Documented by: Enoxaparin Sodium (Enoxaparin Sodium 40 Mg/0.4 Ml Syringe) 40 mg SUBCUT Q24H [facility] Last Admin: 03/27/21 12:33 Dose: 40 mg Documented by: Famotidine (Famotidine/Pf 20 Mg/2 Ml Vial) 20 mg IVPUSH Q12H [facility] Last Admin: 03/27/21 23:36 Dose: 20 mg Documented by: Acetaminophen (Ofirmev) 1,000 mg in 100 mls @ 400 mls/hr IV Q6H [facility] Last Infusion: 03/28/21 06:34 Dose: Infused Documented by: Hydromorphone HCl (Dilaudid) 10 mg in 50 mls @ 0 mls/hr IV .Q0M [facility]; Protocol Last Admin: 03/28/21 01:29 Dose: 0.3 mg/hr, 1.5 mls/hr Documented by: Multivitamins 28 ml/ Trace Metals 2.8 ml/ Amino Acids/Electrolytes/Dextrose 720 mls @ 30 mls/hr IV DAILY@1800 [facility] Stop: 03/28/21 17:59 Last Admin: 03/27/21 18:43 Dose: 30 mls/hr Documented by: Multi-Ingred Medicated Throat [place] (Throat [place], Medicated 20 Ml Bottle) 1 spray MUCOUS MEM Q2H PRN PRN Reason: throat discomfort Last Admin: 03/26/21 12:29 Dose: 1 spray Documented by: Naloxone HCl (Naloxone Hcl 0.4 Mg/Ml Vial) 0.2 mg IVPUSH Q2M PRN PRN Reason: Excessive sedation or RR < 8 Nicotine (Nicotine 21 Mg Patch.Td24) 21 mg TRANSDERMA DAILY [facility] Last Admin: 03/28/21 08:21 Dose: 21 mg Documented by: Ondansetron HCl (Ondansetron Hcl 4 Mg/2 Ml Vial) 4 mg IVPUSH Q8H PRN PRN Reason: Nausea Last Admin: 03/23/21 06:41 Dose: 4 mg Documented by: Pharmacy Consult (Consult Rx Perform Med Rec) 1 each MISCELLANE ONCE PRN PRN Reason: Consult order Trazodone HCl (Trazodone Hcl 50 Mg Tablet) 50 mg PO BEDTIME [facility] Last Admin: 03/27/21 21:04 Dose: 50 mg Documented by: Time Spent With Patient Time: Total time spent is greater than 50% in coordination of care (as documented) at patient's floor/unit and/or counseling patient: Time with patient: 15 - 24 minutes Quality Stroke Does the patient have a stroke diagnosis?: No VTE Prior VTE?: No VTE Risk Level:: Surgical - moderate VTE Device Contraindication: Treatment Not Indicated VTE Drug Contraindication: N/A - Med Ordered
[2021-03-28] MEDS: Famotidine/PF 20 MG/2 ML VIAL IVPUSH ×2 (11:19→23:31)
[2021-03-28] MEDS: Enoxaparin Sodium 40 MG/0.4 ML SYRINGE SUBCUT (11:19)
[2021-03-28] MEDS: Throat Lozenge, Medicated LOZENGE 1 LOZENGE MUCOUS MEM ×2 (16:18→22:56)
[2021-03-28] MEDS: traZODone HCL 50 MG TABLET PO (21:17)
[2021-03-28] MEDS: Amitriptyline HCl 25 MG TABLET PO (21:17)
[2021-03-29] VITALS (16 sets, daily range): BP systolic 102–135; BP diastolic 44–67; PULSE 80–100; RESP 15–18; TEMP 36.2–37.1; O2SAT 93–98
[2021-03-29] MEDS: HYDROmorphone HCl/NS 10 MG/50 ML PIGGYBACK 1.5 MG IV ×3 (00:32→19:50)
[2021-03-29] MEDS: Throat Lozenge, Medicated LOZENGE 1 LOZENGE MUCOUS MEM ×3 (00:34→20:30)
--- NOTE | 2021-03-29 01:12 | PC.NURSE ---
at 0030 hydromorphone bag was changed not able to scan bag will let pharmacy in am . 3.5 ml of dilaudid was wasted pts pain is well controlled
[2021-03-29 08:08] LABS: Anion Gap 12 (12-20); Blood Urea Nitrogen 7 mg/dL (9-16); Calcium 8.1 mg/dL (8.4-10.2); Carbon Dioxide 29 mmol/L (22-29); Chloride 100 mmol/L (96-108); Creatinine Clr Calc Pharmacy 90.2; Estimated Glomerular Filt Rate > 60; Glucose Random 107 mg/dL (60-115); Magnesium 1.7 mg/dL (1.6-2.6); Phosphorus 3.6 mg/dL (2.7-4.5); Potassium 3.7 mmol/L (3.3-5.1); Sodium 137 mmol/L (135-145)
[2021-03-29] MEDS: Nicotine 21 MG PATCH.TD24 TRANSDERMA (08:32)
[2021-03-29] MEDS: buPROPion HCl XL 150 MG TAB.ER.24H PO (08:32)
--- NOTE | 2021-03-29 09:00 | PM.PNGS ---
Subjective Subjective Date of Service: 03/29/21 Interval history: Patient continues to complain of irritation from these a gastric tube. She is not passing flatus or moving her bowels yet. Pain is well controlled with [employer]. Physical Exam Vital Signs: Vital Signs: Last Vital Signs Temp 98.2 F 03/29/21 07:18 Pulse 80 03/29/21 07:18 Resp 18 03/29/21 07:18 BP 102/51 L 03/29/21 07:18 Pulse Ox 95 03/29/21 07:18 Body Mass Index 19.1 Const: General: cooperative and no acute distress Nutritional Appearance: thin Orientation/consciousness: patient oriented x3 Limitations: no limitations Resp: Effort & Inspection: normal respiratory effort GI: Other: Soft and nondistended, incision is clean and intact without redness or discharge. Skin: Other: Warm, dry, no rash Neuro: General: patient oriented x3 Extrem: Other: No edema Objective Data Active Medications Albuterol Sulfate (Albuterol Sulfate 90 Mcg 8 Gm Inhaler) 2 puff INHALE Q4H PRN PRN Reason: Shortness Of Breath Amitriptyline HCl (Amitriptyline Hcl 25 Mg Tablet) 25 mg PO BEDTIME [facility] Last Admin: 03/28/21 21:17 Dose: 25 mg Documented by: MATT Benzocaine (Throat Lozenge, Medicated Lozenge) 1 lozenge MUCOUS MEM Q2H PRN PRN Reason: Sore Throat Last Admin: 03/29/21 08:37 Dose: 1 lozenge Documented by: BRAXTON Bupropion HCl (Bupropion Hcl Xl 150 Mg Tab.Er.24h) 150 mg PO DAILY [facility] Last Admin: 03/29/21 08:32 Dose: 150 mg Documented by: BRAXTON Enoxaparin Sodium (Enoxaparin Sodium 40 Mg/0.4 Ml Syringe) 40 mg SUBCUT Q24H [facility] Last Admin: 03/28/21 11:19 Dose: 40 mg Documented by: BRAXTON Famotidine (Famotidine/Pf 20 Mg/2 Ml Vial) 20 mg IVPUSH Q12H [facility] Last Admin: 03/28/21 23:31 Dose: 20 mg Documented by: MATT Hydromorphone HCl (Dilaudid) 10 mg in 50 mls @ 0 mls/hr IV .Q0M [facility]; Protocol Last Admin: 03/29/21 00:32 Dose: 0.3 mg/hr, 1.5 mls/hr Documented by: KISHORE Multivitamins 18.5 ml/ Trace Metals 1.9 ml/ Amino Acids/Electrolytes/Dextrose 1,080 mls @ 45 mls/hr IV DAILY@1800 [facility] Stop: 03/29/21 17:59 Last Admin: 03/28/21 18:24 Dose: 45 mls/hr Documented by: BRAXTON Multi-Ingred Medicated Throat [place] (Throat [place], Medicated 20 Ml Bottle) 1 spray MUCOUS MEM Q2H PRN PRN Reason: throat discomfort Last Admin: 03/26/21 12:29 Dose: 1 spray Documented by: TANISHA Naloxone HCl (Naloxone Hcl 0.4 Mg/Ml Vial) 0.2 mg IVPUSH Q2M PRN PRN Reason: Excessive sedation or RR < 8 Nicotine (Nicotine 21 Mg Patch.Td24) 21 mg TRANSDERMA DAILY [facility] Last Admin: 03/29/21 08:32 Dose: 21 mg Documented by: BRAXTON Ondansetron HCl (Ondansetron Hcl 4 Mg/2 Ml Vial) 4 mg IVPUSH Q8H PRN PRN Reason: Nausea Last Admin: 03/23/21 06:41 Dose: 4 mg Documented by: KEVIN Pharmacy Consult (Consult Rx Perform Med Rec) 1 each MISCELLANE ONCE PRN PRN Reason: Consult order Trazodone HCl (Trazodone Hcl 50 Mg Tablet) 50 mg PO BEDTIME [facility] Last Admin: 03/28/21 21:17 Dose: 50 mg Documented by: MATT Labs CBC & Chem 7: 03/26/21 05:10 03/29/21 07:30 Labs: Laboratory Results - last 24 hr 03/29/21 07:30 Anion Gap 12 Estim Creat Clear Calc 90.2 Estimated GFR > 60 Random Glucose 107 Calcium 8.1 L Phosphorus 3.6 Magnesium 1.7 Procedures Date of Service Date of Service: 03/29/21 Progress Note: A&P Assessment and plan (1) S/P exploratory laparotomy: Status: Acute (2) Small bowel obstruction: Status: Acute Assessment and Plan: Postoperative day 4 following exploratory laparotomy, extensive lysis of adhesions, small-bowel resection x2 for small-bowel obstruction. Patient complains mainly of irritation from the nasogastric tube. Patient continues to have a postoperative ileus with no flatus or BM as of yet. Continue PPN, check lytes in the a.m.. Out of bed and ambulation encouraged. Await return of bowel function. Fall Risk Details Current Medications: Current Medications Albuterol Sulfate (Albuterol Sulfate 90 Mcg 8 Gm Inhaler) 2 puff INHALE Q4H PRN PRN Reason: Shortness Of Breath Amitriptyline HCl (Amitriptyline Hcl 25 Mg Tablet) 25 mg PO BEDTIME [facility] Last Admin: 03/28/21 21:17 Dose: 25 mg Documented by: Benzocaine (Throat Lozenge, Medicated Lozenge) 1 lozenge MUCOUS MEM Q2H PRN PRN Reason: Sore Throat Last Admin: 03/29/21 08:37 Dose: 1 lozenge Documented by: Bupropion HCl (Bupropion Hcl Xl 150 Mg Tab.Er.24h) 150 mg PO DAILY [facility] Last Admin: 03/29/21 08:32 Dose: 150 mg Documented by: Enoxaparin Sodium (Enoxaparin Sodium 40 Mg/0.4 Ml Syringe) 40 mg SUBCUT Q24H [facility] Last Admin: 03/28/21 11:19 Dose: 40 mg Documented by: Famotidine (Famotidine/Pf 20 Mg/2 Ml Vial) 20 mg IVPUSH Q12H [facility] Last Admin: 03/28/21 23:31 Dose: 20 mg Documented by: Hydromorphone HCl (Dilaudid) 10 mg in 50 mls @ 0 mls/hr IV .Q0M [facility]; Protocol Last Admin: 03/29/21 00:32 Dose: 0.3 mg/hr, 1.5 mls/hr Documented by: Multivitamins 18.5 ml/ Trace Metals 1.9 ml/ Amino Acids/Electrolytes/Dextrose 1,080 mls @ 45 mls/hr IV DAILY@1800 [facility] Stop: 03/29/21 17:59 Last Admin: 03/28/21 18:24 Dose: 45 mls/hr Documented by: Multi-Ingred Medicated Throat [place] (Throat [place], Medicated 20 Ml Bottle) 1 spray MUCOUS MEM Q2H PRN PRN Reason: throat discomfort Last Admin: 03/26/21 12:29 Dose: 1 spray Documented by: Naloxone HCl (Naloxone Hcl 0.4 Mg/Ml Vial) 0.2 mg IVPUSH Q2M PRN PRN Reason: Excessive sedation or RR < 8 Nicotine (Nicotine 21 Mg Patch.Td24) 21 mg TRANSDERMA DAILY [facility] Last Admin: 03/29/21 08:32 Dose: 21 mg Documented by: Ondansetron HCl (Ondansetron Hcl 4 Mg/2 Ml Vial) 4 mg IVPUSH Q8H PRN PRN Reason: Nausea Last Admin: 03/23/21 06:41 Dose: 4 mg Documented by: Pharmacy Consult (Consult Rx Perform Med Rec) 1 each MISCELLANE ONCE PRN PRN Reason: Consult order Trazodone HCl (Trazodone Hcl 50 Mg Tablet) 50 mg PO BEDTIME [facility] Last Admin: 03/28/21 21:17 Dose: 50 mg Documented by: Time Spent With Patient Time: Total time spent is greater than 50% in coordination of care (as documented) at patient's floor/unit and/or counseling patient: Time with patient: 15 - 24 minutes Quality Stroke Does the patient have a stroke diagnosis?: No VTE Prior VTE?: No VTE Risk Level:: Surgical - moderate VTE Device Contraindication: Treatment Not Indicated VTE Drug Contraindication: N/A - Med Ordered
[2021-03-29] MEDS: Enoxaparin Sodium 40 MG/0.4 ML SYRINGE SUBCUT (11:05)
[2021-03-29] MEDS: Famotidine/PF 20 MG/2 ML VIAL IVPUSH (11:06)
[2021-03-29] MEDS: Fat Emulsions 20% 250 ML 17 ML IVCONT (17:57)
[2021-03-29] MEDS: Amitriptyline HCl 25 MG TABLET PO (20:26)
[2021-03-29] MEDS: traZODone HCL 50 MG TABLET PO (20:26)
[2021-03-29] MEDS: Acetaminophen 325 MG TABLET 650 MG PO (22:36)
[2021-03-30] VITALS (11 sets, daily range): BP systolic 104–127; BP diastolic 49–70; PULSE 78–101; RESP 16–18; TEMP 36.2–37.3; O2SAT 94–97
[2021-03-30] MEDS: Famotidine/PF 20 MG/2 ML VIAL IVPUSH ×2 (00:27→11:48)
[2021-03-30 06:03] LABS: Anion Gap 15 (12-20); Blood Urea Nitrogen 8 mg/dL (9-16); Calcium 8.6 mg/dL (8.4-10.2); Carbon Dioxide 28 mmol/L (22-29); Chloride 102 mmol/L (96-108); Creatinine Clr Calc Pharmacy 91.9; Estimated Glomerular Filt Rate > 60; Glucose Random 124 mg/dL (60-115); Potassium 4.2 mmol/L (3.3-5.1); Sodium 141 mmol/L (135-145)
[2021-03-30] MEDS: Fat Emulsions 20% 250 ML 17 ML IVCONT ×2 (06:14→18:37)
[2021-03-30] MEDS: buPROPion HCl XL 150 MG TAB.ER.24H PO (07:57)
[2021-03-30] MEDS: Nicotine 21 MG PATCH.TD24 TRANSDERMA (07:57)
--- NOTE | 2021-03-30 08:38 | PM.PNGS ---
Subjective Subjective Date of Service: 03/30/21 Interval history: States she feels well NG tube accidentally removed early this morning She denies flatus No nausea or vomiting Pain level okay, seems well controlled Physical Exam Vital Signs: Vital Signs: Last Vital Signs Temp 97.6 F 03/30/21 07:52 Pulse 87 03/30/21 07:52 Resp 18 03/30/21 07:52 BP 119/55 L 03/30/21 07:52 Pulse Ox 95 03/30/21 07:52 Body Mass Index 19.1 Const: General: comfortable and no acute distress Resp: Effort & Inspection: normal respiratory effort Cardio: Rate: regular rate GI: Other: Soft, mildly distended, incision clean and dry, no guarding rebound Objective Data Active Medications Acetaminophen (Acetaminophen 325 Mg Tablet) 650 mg PO Q4H PRN PRN Reason: Fever >101 Last Admin: 03/29/21 22:36 Dose: 650 mg Documented by: MATT Albuterol Sulfate (Albuterol Sulfate 90 Mcg 8 Gm Inhaler) 2 puff INHALE Q4H PRN PRN Reason: Shortness Of Breath Amitriptyline HCl (Amitriptyline Hcl 25 Mg Tablet) 25 mg PO BEDTIME [facility] Last Admin: 03/29/21 20:26 Dose: 25 mg Documented by: MATT Benzocaine (Throat Lozenge, Medicated Lozenge) 1 lozenge MUCOUS MEM Q2H PRN PRN Reason: Sore Throat Last Admin: 03/29/21 20:30 Dose: 1 lozenge Documented by: MATT Bupropion HCl (Bupropion Hcl Xl 150 Mg Tab.Er.24h) 150 mg PO DAILY [facility] Last Admin: 03/30/21 07:57 Dose: 150 mg Documented by: DABManjeet Enoxaparin Sodium (Enoxaparin Sodium 40 Mg/0.4 Ml Syringe) 40 mg SUBCUT Q24H [facility] Last Admin: 03/29/21 11:05 Dose: 40 mg Documented by: BRAXTON Famotidine (Famotidine/Pf 20 Mg/2 Ml Vial) 20 mg IVPUSH Q12H [facility] Last Admin: 03/30/21 00:27 Dose: 20 mg Documented by: MATT Hydromorphone HCl (Dilaudid) 10 mg in 50 mls @ 0 mls/hr IV .Q0M [facility]; Protocol Last Admin: 03/29/21 19:50 Dose: 0.3 mg/hr, 1.5 mls/hr Documented by: KISHORE Multivitamins 14 ml/ Trace Metals 1.4 ml/ Amino Acids/Electrolytes/Dextrose 1,440 mls @ 60 mls/hr IV DAILY@1800 [facility] Stop: 03/30/21 17:59 Last Admin: 03/29/21 17:57 Dose: 60 mls/hr Documented by: SANTI Fat Emulsion Intravenous (Intralipid) 204 mls @ 17 mls/hr IVCONT BID@0600,1800 [facility] Stop: 03/30/21 17:59 Last Admin: 03/30/21 06:14 Dose: 17 mls/hr Documented by: MATT Multi-Ingred Medicated Throat [place] (Throat [place], Medicated 20 Ml Bottle) 1 spray MUCOUS MEM Q2H PRN PRN Reason: throat discomfort Last Admin: 03/26/21 12:29 Dose: 1 spray Documented by: TANISHA Naloxone HCl (Naloxone Hcl 0.4 Mg/Ml Vial) 0.2 mg IVPUSH Q2M PRN PRN Reason: Excessive sedation or RR < 8 Nicotine (Nicotine 21 Mg Patch.Td24) 21 mg TRANSDERMA DAILY [facility] Last Admin: 03/30/21 07:57 Dose: 21 mg Documented by: ANTONY Ondansetron HCl (Ondansetron Hcl 4 Mg/2 Ml Vial) 4 mg IVPUSH Q8H PRN PRN Reason: Nausea Last Admin: 03/23/21 06:41 Dose: 4 mg Documented by: KEVIN Pharmacy Consult (Consult Rx Perform Med Rec) 1 each MISCELLANE ONCE PRN PRN Reason: Consult order Trazodone HCl (Trazodone Hcl 50 Mg Tablet) 50 mg PO BEDTIME [facility] Last Admin: 03/29/21 20:26 Dose: 50 mg Documented by: MATT Labs CBC & Chem 7: 03/26/21 05:10 03/30/21 05:20 Labs: Laboratory Results - last 24 hr 03/30/21 05:20 Anion Gap 15 Estim Creat Clear Calc 91.9 Estimated GFR > 60 Random Glucose 124 H Calcium 8.6 D Procedures Date of Service Date of Service: 03/30/21 Progress Note: A&P Assessment and plan (1) Small bowel obstruction: Status: Acute Assessment and Plan: Status post ex lap, small-bowel resection x2 Looks well Abdomen soft NG tube out - apparently accidentally pulled out this morning She feels well, no nausea or vomiting Await flatus Keep on clear liquids for now Continue PPN Encourage ambulation Fall Risk Details Current Medications: Current Medications Acetaminophen (Acetaminophen 325 Mg Tablet) 650 mg PO Q4H PRN PRN Reason: Fever >101 Last Admin: 03/29/21 22:36 Dose: 650 mg Documented by: Albuterol Sulfate (Albuterol Sulfate 90 Mcg 8 Gm Inhaler) 2 puff INHALE Q4H PRN PRN Reason: Shortness Of Breath Amitriptyline HCl (Amitriptyline Hcl 25 Mg Tablet) 25 mg PO BEDTIME [facility] Last Admin: 03/29/21 20:26 Dose: 25 mg Documented by: Benzocaine (Throat Lozenge, Medicated Lozenge) 1 lozenge MUCOUS MEM Q2H PRN PRN Reason: Sore Throat Last Admin: 03/29/21 20:30 Dose: 1 lozenge Documented by: Bupropion HCl (Bupropion Hcl Xl 150 Mg Tab.Er.24h) 150 mg PO DAILY [facility] Last Admin: 03/30/21 07:57 Dose: 150 mg Documented by: Enoxaparin Sodium (Enoxaparin Sodium 40 Mg/0.4 Ml Syringe) 40 mg SUBCUT Q24H [facility] Last Admin: 03/29/21 11:05 Dose: 40 mg Documented by: Famotidine (Famotidine/Pf 20 Mg/2 Ml Vial) 20 mg IVPUSH Q12H [facility] Last Admin: 03/30/21 00:27 Dose: 20 mg Documented by: Hydromorphone HCl (Dilaudid) 10 mg in 50 mls @ 0 mls/hr IV .Q0M [facility]; Protocol Last Admin: 03/29/21 19:50 Dose: 0.3 mg/hr, 1.5 mls/hr Documented by: Multivitamins 14 ml/ Trace Metals 1.4 ml/ Amino Acids/Electrolytes/Dextrose 1,440 mls @ 60 mls/hr IV DAILY@1800 [facility] Stop: 03/30/21 17:59 Last Admin: 03/29/21 17:57 Dose: 60 mls/hr Documented by: Fat Emulsion Intravenous (Intralipid) 204 mls @ 17 mls/hr IVCONT BID@0600,1800 [facility] Stop: 03/30/21 17:59 Last Admin: 03/30/21 06:14 Dose: 17 mls/hr Documented by: Multi-Ingred Medicated Throat [place] (Throat [place], Medicated 20 Ml Bottle) 1 spray MUCOUS MEM Q2H PRN PRN Reason: throat discomfort Last Admin: 03/26/21 12:29 Dose: 1 spray Documented by: Naloxone HCl (Naloxone Hcl 0.4 Mg/Ml Vial) 0.2 mg IVPUSH Q2M PRN PRN Reason: Excessive sedation or RR < 8 Nicotine (Nicotine 21 Mg Patch.Td24) 21 mg TRANSDERMA DAILY [facility] Last Admin: 03/30/21 07:57 Dose: 21 mg Documented by: Ondansetron HCl (Ondansetron Hcl 4 Mg/2 Ml Vial) 4 mg IVPUSH Q8H PRN PRN Reason: Nausea Last Admin: 03/23/21 06:41 Dose: 4 mg Documented by: Pharmacy Consult (Consult Rx Perform Med Rec) 1 each MISCELLANE ONCE PRN PRN Reason: Consult order Trazodone HCl (Trazodone Hcl 50 Mg Tablet) 50 mg PO BEDTIME [facility] Last Admin: 03/29/21 20:26 Dose: 50 mg Documented by: Time Spent With Patient Time: Total time spent is greater than 50% in coordination of care (as documented) at patient's floor/unit and/or counseling patient: Time with patient: 15 - 24 minutes Quality Stroke Does the patient have a stroke diagnosis?: No VTE Prior VTE?: No VTE Risk Level:: Surgical - moderate VTE Device Contraindication: Treatment Not Indicated VTE Drug Contraindication: N/A - Med Ordered
--- NOTE | 2021-03-30 09:14 | MHC.CLN ---
PPN F/U PATIENT IS NPO DAY 8. NGT OUT AT THIS WRITING. PPN IS AT MAX GOAL RATE WITH LIPIDS. TRIGLYCERIDES 03/2800=[id number]. RD RECOMMENDS CONTINUE PPN AT MAX GOAL RATE WITH LIPIDS: D10AA4.25 @ 60 ML PER HOUR (GOAL RATE) WITH 17 ML OF 20% LIPIDS. REPLETE LYTES NEEDED, MONITOR TRIGLYCERIDES. PPN PLUS LIPIDS PROVIDES 1550 KCAL (29.6 KCAL/KG IBW) AND 61 G PROTEIN (1.16 G/KG IBW) DISCUSSED WITH PHARMACY VIA PHONE.
[2021-03-30 09:19] LABS: Albumin Level 3.1 g/dL (3.5-5.0); Magnesium 1.9 mg/dL (1.6-2.6); Phosphorus 4.3 mg/dL (2.7-4.5)
[2021-03-30 09:38] LABS: Triglycerides 178 mg/dL
[2021-03-30] MEDS: oxyCODONE HCl Immed Release 5 MG TABLET PO (09:52)
[2021-03-30] MEDS: HYDROmorphone HCl 0.5 MG/0.5 ML SYRINGE 0.25 MG IVPUSH (11:44)
[2021-03-30] MEDS: Enoxaparin Sodium 40 MG/0.4 ML SYRINGE SUBCUT (11:48)
[2021-03-30] MEDS: oxyCODONE HCl Immed Release 5 MG TABLET 10 MG PO (13:05)
--- NOTE | 2021-03-30 13:18 | PM.EVENT ---
Event Note Date of Service: 03/31/21 Event Note: Seen on afternoon rounds Complaints of pain and was asking for early dose of pain meds Abdomen distended I told her that we should put in the NG tube again for likely postop ileus Frequency of pain meds increased I was told later that has been refusing NG tube insertion X-ray ordered
--- NOTE | 2021-03-30 13:20 | PC.NURSE ---
pt c/o pain , pt moaning , surgeon in to see pt , requesting NGT placement, pt refused NGT at this time , aware , new order for KUB .
[2021-03-30] MEDS: HYDROmorphone HCl 0.5 MG/0.5 ML SYRINGE IVPUSH ×3 (15:12→22:42)
--- NOTE | 2021-03-30 16:17 | PM.EVENT ---
Event Note Date of Service: 03/30/21 Event Note: Abdominal x-ray reviewed - dilated small bowel loops, likely ileus I had reviewed this with her I told her that it would be best to reinsert the NG tube Discussed this with her multiple times but she continues to refuse She says she feels better with pain medications and that she had passed to BMs this afternoon Abdomen distended but soft Will continue to re-evaluate NPO for now except meds
[2021-03-30] MEDS: traZODone HCL 50 MG TABLET PO (21:08)
[2021-03-30] MEDS: Amitriptyline HCl 25 MG TABLET PO (21:08)
[2021-03-31] VITALS (7 sets, daily range): BP systolic 104–123; BP diastolic 51–68; PULSE 80–97; RESP 16–18; TEMP 36–36.7; O2SAT 96–99
[2021-03-31] MEDS: Famotidine/PF 20 MG/2 ML VIAL IVPUSH ×2 (00:03→11:25)
[2021-03-31] MEDS: HYDROmorphone HCl 0.5 MG/0.5 ML SYRINGE IVPUSH ×6 (03:25→21:40)
[2021-03-31 06:05] LABS: Anion Gap 13 (12-20); Blood Urea Nitrogen 8 mg/dL (9-16); Calcium 8.6 mg/dL (8.4-10.2); Carbon Dioxide 27 mmol/L (22-29); Chloride 103 mmol/L (96-108); Creatinine Clr Calc Pharmacy 91.9; Estimated Glomerular Filt Rate > 60; Glucose Random 120 mg/dL (60-115); Potassium 3.8 mmol/L (3.3-5.1); Sodium 139 mmol/L (135-145)
[2021-03-31] MEDS: Fat Emulsions 20% 250 ML 17 ML IVCONT ×2 (06:26→18:37)
--- NOTE | 2021-03-31 08:20 | PM.PNGS ---
Subjective Subjective Date of Service: 03/31/21 <Dora Victoria PA-C - Last Filed: 03/31/21 08:25> 03/31/21 <Torey Benites MD - Last Filed: 03/31/21 10:49> Interval history: C/o pain this morning. Medication helping when she gets it. Passed flatus this morning. C/o bloating with liquids yesterday. <Dora Victoria PA-C - Last Filed: 03/31/21 08:25> Physical Exam Vital Signs: Vital Signs: Last Vital Signs Temp 97.5 F 03/31/21 07:55 Pulse 91 03/31/21 07:55 Resp 17 03/31/21 07:55 BP 123/64 03/31/21 07:55 Pulse Ox 97 03/31/21 07:55 Body Mass Index 19.1 <Dora Victoria PA-C - Last Filed: 03/31/21 08:25> Const: General: comfortable, no acute distress and alert <Dora Victoria PA-C - Last Filed: 03/31/21 08:25> Orientation/consciousness: patient oriented x3 <Dora Victoria PA-C - Last Filed: 03/31/21 08:25> Resp: Effort & Inspection: normal respiratory effort <DOMINIQUE iDaz Last Filed: 03/31/21 08:25> GI: Inspection: Yes distended and Yes incision (clean) <Dora Victroia PA-C - Last Filed: 03/31/21 08:25> Palpation (GI): Soft to palpation, Tenderness to palpation present (GI) (incisional), no guarding and not rigid <Dora Victoria PA-C - Last Filed: 03/31/21 08:25> Percussion: Yes tympanic to percussion <DOMINIQUE Diaz Last Filed: 03/31/21 08:25> Skin: General skin exam: no rashes or lesions noted <DOMINIQUE Diaz Last Filed: 03/31/21 08:25> Neuro: General: patient oriented x3 <DOMINIQUE Diaz Last Filed: 03/31/21 08:25> Extrem: General: Yes no clubbing, cyanosis or edema <Dora Victoria PA-C - Last Filed: 03/31/21 08:25> Objective Data Active Medications Acetaminophen (Acetaminophen 325 Mg Tablet) 650 mg PO Q4H PRN PRN Reason: Fever >101 Last Admin: 03/29/21 22:36 Dose: 650 mg Documented by: MATT Albuterol Sulfate (Albuterol Sulfate 90 Mcg 8 Gm Inhaler) 2 puff INHALE Q4H PRN PRN Reason: Shortness Of Breath Amitriptyline HCl (Amitriptyline Hcl 25 Mg Tablet) 25 mg PO BEDTIME [facility] Last Admin: 03/30/21 21:08 Dose: 25 mg Documented by: SUJATHA Benzocaine (Throat Lozenge, Medicated Lozenge) 1 lozenge MUCOUS MEM Q2H PRN PRN Reason: Sore Throat Last Admin: 03/29/21 20:30 Dose: 1 lozenge Documented by: MATT Bupropion HCl (Bupropion Hcl Xl 150 Mg Tab.Er.24h) 150 mg PO DAILY [facility] Last Admin: 03/30/21 07:57 Dose: 150 mg Documented by: ANTONY Enoxaparin Sodium (Enoxaparin Sodium 40 Mg/0.4 Ml Syringe) 40 mg SUBCUT Q24H [facility] Last Admin: 03/30/21 11:48 Dose: 40 mg Documented by: MAGALY Famotidine (Famotidine/Pf 20 Mg/2 Ml Vial) 20 mg IVPUSH Q12H [facility] Last Admin: 03/31/21 00:03 Dose: 20 mg Documented by: SUJATHA Hydromorphone HCl (Hydromorphone Hcl 0.5 Mg/0.5 Ml Syringe) 0.5 mg IVPUSH Q3H PRN; Protocol PRN Reason: Pain, Severe (Pain Scale 7-10) Last Admin: 03/31/21 03:25 Dose: 0.5 mg Documented by: SUJATHA Multivitamins 14 ml/ Trace Metals 1.4 ml/ Amino Acids/Electrolytes/Dextrose 1,440 mls @ 60 mls/hr IV DAILY@1800 [facility] Stop: 03/31/21 17:59 Last Infusion: 03/31/21 07:29 Dose: 60 mls/hr Documented by: FRANNIE Fat Emulsion Intravenous (Intralipid) 204 mls @ 17 mls/hr IVCONT BID@0600,1800 [facility] Stop: 03/31/21 17:59 Last Infusion: 03/31/21 07:29 Dose: 17 mls/hr Documented by: FRANNIE Multi-Ingred Medicated Throat [place] (Throat [place], Medicated 20 Ml Bottle) 1 spray MUCOUS MEM Q2H PRN PRN Reason: throat discomfort Last Admin: 03/26/21 12:29 Dose: 1 spray Documented by: TANISHA Naloxone HCl (Naloxone Hcl 0.4 Mg/Ml Vial) 0.2 mg IVPUSH Q2M PRN PRN Reason: Excessive sedation or RR < 8 Nicotine (Nicotine 21 Mg Patch.Td24) 21 mg TRANSDERMA DAILY [facility] Last Admin: 03/30/21 07:57 Dose: 21 mg Documented by: ANTONY Ondansetron HCl (Ondansetron Hcl 4 Mg/2 Ml Vial) 4 mg IVPUSH Q8H PRN PRN Reason: Nausea Last Admin: 03/23/21 06:41 Dose: 4 mg Documented by: KEVIN Oxycodone HCl (Oxycodone Hcl Immed Release 5 Mg Tablet) 5 mg PO Q4H PRN PRN Reason: Pain, Moderate (Pain Scale 4-6 Last Admin: 03/30/21 09:52 Dose: 5 mg Documented by: AZUCENA Oxycodone HCl (Oxycodone Hcl Immed Release 5 Mg Tablet) 10 mg PO Q4H PRN PRN Reason: Pain, Severe (Pain Scale 7-10) Last Admin: 03/30/21 13:05 Dose: 10 mg Documented by: AZUCENA Pharmacy Consult (Consult Rx Perform Med Rec) 1 each MISCELLANE ONCE PRN PRN Reason: Consult order Trazodone HCl (Trazodone Hcl 50 Mg Tablet) 50 mg PO BEDTIME [facility] Last Admin: 03/30/21 21:08 Dose: 50 mg Documented by: SUJATHA <Dora Victoria PA-C - Last Filed: 03/31/21 08:25> Labs CBC & Chem 7: : 03/26/21 05:10 03/31/21 05:19 <Dora Victoria PA-C - Last Filed: 03/31/21 08:25> Labs: Laboratory Results - last 24 hr 03/30/21 03/31/21 05:20 05:19 Anion Gap 13 Estim Creat Clear Calc 91.9 Estimated GFR > 60 Random Glucose 120 H Calcium 8.6 Phosphorus 4.3 Magnesium 1.9 Albumin 3.1 L Triglycerides 178 <Dora Victoria PA-C - Last Filed: 03/31/21 08:25> Procedures Date of Service Date of Service: 03/31/21 <Dora Victoria PA-C - Last Filed: 03/31/21 08:25> Progress Note: A&P Assessment and plan (1) S/P exploratory laparotomy: Status: Acute <Dora Victoria PA-C - Last Filed: 03/31/21 08:25> Assessment and Plan: Still has pain but says this is better compared to yesterday She says she has passed flatus this morning Abdomen distended but soft Incision clean and dry Ambulate, incentive spirometry Pain management She looks well otherwise Keep on clear liquids until flatus more consistent Seen and examined - agree with STEPHANIE Victoria <Torey Benites MD - Last Filed: 03/31/21 10:49> (2) Moderate malnutrition: Status: Acute <Dora Victoria PA-C - Last Filed: 03/31/21 08:25> (3) Small bowel obstruction: Status: Acute <Dora Victoria PA-C - Last Filed: 03/31/21 08:25> Assessment and Plan: 56 year old female admitted with SBO now POD #5 s/p ex lap, extensive DONA, small bowel resection x2. NGT dislodged yesterday. She has been tolerating liquids but c/o some distention following. VSS. Abd remains distended and tympanitic. Incision clean. Will cont clear liquids until passing continuous flatus. Encouraged OOB/ambulation of halls multiple times today. Cont PPN. <Dora Victoria PA-C - Last Filed: 03/31/21 08:25> Fall Risk Details Current Medications: Current Medications Acetaminophen (Acetaminophen 325 Mg Tablet) 650 mg PO Q4H PRN PRN Reason: Fever >101 Last Admin: 03/29/21 22:36 Dose: 650 mg Documented by: Albuterol Sulfate (Albuterol Sulfate 90 Mcg 8 Gm Inhaler) 2 puff INHALE Q4H PRN PRN Reason: Shortness Of Breath Amitriptyline HCl (Amitriptyline Hcl 25 Mg Tablet) 25 mg PO BEDTIME [facility] Last Admin: 03/30/21 21:08 Dose: 25 mg Documented by: Benzocaine (Throat Lozenge, Medicated Lozenge) 1 lozenge MUCOUS MEM Q2H PRN PRN Reason: Sore Throat Last Admin: 03/29/21 20:30 Dose: 1 lozenge Documented by: Bupropion HCl (Bupropion Hcl Xl 150 Mg Tab.Er.24h) 150 mg PO DAILY [facility] Last Admin: 03/30/21 07:57 Dose: 150 mg Documented by: Enoxaparin Sodium (Enoxaparin Sodium 40 Mg/0.4 Ml Syringe) 40 mg SUBCUT Q24H [facility] Last Admin: 03/30/21 11:48 Dose: 40 mg Documented by: Famotidine (Famotidine/Pf 20 Mg/2 Ml Vial) 20 mg IVPUSH Q12H [facility] Last Admin: 03/31/21 00:03 Dose: 20 mg Documented by: Hydromorphone HCl (Hydromorphone Hcl 0.5 Mg/0.5 Ml Syringe) 0.5 mg IVPUSH Q3H PRN; Protocol PRN Reason: Pain, Severe (Pain Scale 7-10) Last Admin: 03/31/21 03:25 Dose: 0.5 mg Documented by: Multivitamins 14 ml/ Trace Metals 1.4 ml/ Amino Acids/Electrolytes/Dextrose 1,440 mls @ 60 mls/hr IV DAILY@1800 [facility] Stop: 03/31/21 17:59 Last Infusion: 03/31/21 07:29 Dose: 60 mls/hr Documented by: Fat Emulsion Intravenous (Intralipid) 204 mls @ 17 mls/hr IVCONT BID@0600,1800 [facility] Stop: 03/31/21 17:59 Last Infusion: 03/31/21 07:29 Dose: 17 mls/hr Documented by: Multi-Ingred Medicated Throat [place] (Throat [place], Medicated 20 Ml Bottle) 1 spray MUCOUS MEM Q2H PRN PRN Reason: throat discomfort Last Admin: 03/26/21 12:29 Dose: 1 spray Documented by: Naloxone HCl (Naloxone Hcl 0.4 Mg/Ml Vial) 0.2 mg IVPUSH Q2M PRN PRN Reason: Excessive sedation or RR < 8 Nicotine (Nicotine 21 Mg Patch.Td24) 21 mg TRANSDERMA DAILY [facility] Last Admin: 03/30/21 07:57 Dose: 21 mg Documented by: Ondansetron HCl (Ondansetron Hcl 4 Mg/2 Ml Vial) 4 mg IVPUSH Q8H PRN PRN Reason: Nausea Last Admin: 03/23/21 06:41 Dose: 4 mg Documented by: Oxycodone HCl (Oxycodone Hcl Immed Release 5 Mg Tablet) 5 mg PO Q4H PRN PRN Reason: Pain, Moderate (Pain Scale 4-6 Last Admin: 03/30/21 09:52 Dose: 5 mg Documented by: Oxycodone HCl (Oxycodone Hcl Immed Release 5 Mg Tablet) 10 mg PO Q4H PRN PRN Reason: Pain, Severe (Pain Scale 7-10) Last Admin: 03/30/21 13:05 Dose: 10 mg Documented by: Pharmacy Consult (Consult Rx Perform Med Rec) 1 each MISCELLANE ONCE PRN PRN Reason: Consult order Trazodone HCl (Trazodone Hcl 50 Mg Tablet) 50 mg PO BEDTIME [facility] Last Admin: 03/30/21 21:08 Dose: 50 mg Documented by: <Dora Victoria PA-C - Last Filed: 03/31/21 08:25> Time Spent With Patient Time: Total time spent is greater than 50% in coordination of care (as documented) at patient's floor/unit and/or counseling patient: <Dora Victoria PA-C - Last Filed: 03/31/21 08:25> Time with patient: 15 - 24 minutes <Dora Victoria PA-C - Last Filed: 03/31/21 08:25> Quality Stroke Does the patient have a stroke diagnosis?: No <Dora Victoria PA-C - Last Filed: 03/31/21 08:25> VTE Prior VTE?: No <Dora Victoria PA-C - Last Filed: 03/31/21 08:25> VTE Risk Level:: Surgical - moderate <Dora Victoria PA-C - Last Filed: 03/31/21 08:25> VTE Device Contraindication: Treatment Not Indicated <Dora Victoria PA-C - Last Filed: 03/31/21 08:25> VTE Drug Contraindication: N/A - Med Ordered <Dora Victoria PA-C - Last Filed: 03/31/21 08:25>
[2021-03-31] MEDS: Nicotine 21 MG PATCH.TD24 TRANSDERMA (08:41)
[2021-03-31] MEDS: buPROPion HCl XL 150 MG TAB.ER.24H PO (08:41)
[2021-03-31 10:26] LABS: Albumin Level 3.1 g/dL (3.5-5.0); Magnesium 1.9 mg/dL (1.6-2.6)
[2021-03-31] MEDS: Enoxaparin Sodium 40 MG/0.4 ML SYRINGE SUBCUT (11:25)
--- NOTE | 2021-03-31 11:54 | MHC.CLN ---
Addendum entered by Nori Tinoco, KEYANNA 03/31/21 13:52: AGREE WITH PROVIDER'S ASSESSMENT BELOW Original Note: F/U PATIENT IS NPO DAY 9. NGT IS OUT. PPN IS AT MAX GOAL RATE WITH LIPIDS. TRIGLYCERIDES 03/[id number]. RECOMMEND CONTINUING PPN AT MAX GOAL RATE WITH LIPIDS: D10AA4.25 @ 60 ML PER HOUR (GOAL RATE) WITH 17 ML OF 20% LIPIDS. REPLETE LYTES NEEDED, MONITOR TRIGLYCERIDES. PPN PLUS LIPIDS PROVIDES 1550 KCAL (29.6 KCAL/KG IBW) AND 61 G PROTEIN (1.16 G/KG IBW) DISCUSSED WITH PHARMACY
[2021-03-31] MEDS: ondansetron HCL 4 MG/2 ML VIAL IVPUSH (18:23)
[2021-03-31] MEDS: traZODone HCL 50 MG TABLET PO (21:06)
[2021-03-31] MEDS: Amitriptyline HCl 25 MG TABLET PO (21:06)
[2021-04-01] MEDS: Famotidine/PF 20 MG/2 ML VIAL IVPUSH ×3 (00:05→23:08)
[2021-04-01] MEDS: HYDROmorphone HCl 0.5 MG/0.5 ML SYRINGE IVPUSH ×7 (02:00→23:08)
[2021-04-01 03:42] VITALS: BP 113/62; PULSE 74; RESP 18; TEMP 36.6; O2SAT 95
[2021-04-01 06:05] LABS: Anion Gap 13 (12-20); Blood Urea Nitrogen 9 mg/dL (9-16); Calcium 8.8 mg/dL (8.4-10.2); Carbon Dioxide 27 mmol/L (22-29); Chloride 104 mmol/L (96-108); Estimated Glomerular Filt Rate > 60; Glucose Random 109 mg/dL (60-115); Sodium 140 mmol/L (135-145)
[2021-04-01] MEDS: Fat Emulsions 20% 250 ML 17 ML IVCONT (06:50)
[2021-04-01 08:00] VITALS: BP 105/58; PULSE 81; RESP 16; TEMP 36.3; O2SAT 98
--- NOTE | 2021-04-01 08:50 | P.PNGS_ITS ---
Subjective Subjective Date of Service: 04/01/21 <Dora Victoria PA-C - Last Filed: 04/01/21 08:54> 04/01/21 <Torey Benites MD - Last Filed: 04/01/21 09:23> Interval history: Overall feeling better this morning. Passing more flatus. Pain better. Has been OOB and ambulating. Wants to eat and go home. <Dora Victoria PA-C - Last Filed: 04/01/21 08:54> Physical Exam Vital Signs: Vital Signs: Last Vital Signs Temp 97.3 F 04/01/21 08:00 Pulse 81 04/01/21 08:00 Resp 16 04/01/21 08:00 BP 105/58 L 04/01/21 08:00 Pulse Ox 98 04/01/21 08:00 Body Mass Index 19.1 <Dora Victoria PA-C - Last Filed: 04/01/21 08:54> Const: General: comfortable, no acute distress and alert <Dora mohr PA-C - Last Filed: 04/01/21 08:54> Orientation/consciousness: patient oriented x3 <Dora Victoria PA-C - Last Filed: 04/01/21 08:54> Resp: Effort & Inspection: normal respiratory effort <DOMINIQUE Diaz Last Filed: 04/01/21 08:54> GI: Inspection: Yes distended (decreasing) and Yes incision (clean) <Dora Victoria PA-C - Last Filed: 04/01/21 08:54> Palpation (GI): Soft to palpation, Tenderness to palpation present (GI) (incisional), no guarding and not rigid <Dora Victoria PA-C - Last Filed: 04/01/21 08:54> Percussion: Yes tympanic to percussion <DOMINIQUE Diaz Last Filed: 04/01/21 08:54> Skin: General skin exam: no rashes or lesions noted <DOMINIQUE Diaz Last Filed: 04/01/21 08:54> Neuro: General: patient oriented x3 <DOMINIQUE Diaz Last Filed: 04/01/21 08:54> Extrem: General: Yes no clubbing, cyanosis or edema <Dora Victoria PA-C - Last Filed: 04/01/21 08:54> Objective Data Active Medications Acetaminophen (Acetaminophen 325 Mg Tablet) 650 mg PO Q4H PRN PRN Reason: Fever >101 Last Admin: 03/29/21 22:36 Dose: 650 mg Documented by: MATT Albuterol Sulfate (Albuterol Sulfate 90 Mcg 8 Gm Inhaler) 2 puff INHALE Q4H PRN PRN Reason: Shortness Of Breath Amitriptyline HCl (Amitriptyline Hcl 25 Mg Tablet) 25 mg PO BEDTIME [facility] Last Admin: 03/31/21 21:06 Dose: 25 mg Documented by: IVETT Benzocaine (Throat Lozenge, Medicated Lozenge) 1 lozenge MUCOUS MEM Q2H PRN PRN Reason: Sore Throat Last Admin: 03/29/21 20:30 Dose: 1 lozenge Documented by: MATT Bupropion HCl (Bupropion Hcl Xl 150 Mg Tab.Er.24h) 150 mg PO DAILY [facility] Last Admin: 03/31/21 08:41 Dose: 150 mg Documented by: ERIC Enoxaparin Sodium (Enoxaparin Sodium 40 Mg/0.4 Ml Syringe) 40 mg SUBCUT Q24H [facility] Last Admin: 03/31/21 11:25 Dose: 40 mg Documented by: ERIC Famotidine (Famotidine/Pf 20 Mg/2 Ml Vial) 20 mg IVPUSH Q12H [facility] Last Admin: 04/01/21 00:05 Dose: 20 mg Documented by: IVETT Hydromorphone HCl (Hydromorphone Hcl 0.5 Mg/0.5 Ml Syringe) 0.5 mg IVPUSH Q3H PRN; Protocol PRN Reason: Pain, Severe (Pain Scale 7-10) Last Admin: 04/01/21 06:27 Dose: 0.5 mg Documented by: IVETT Multivitamins 14 ml/ Trace Metals 1.4 ml/ Amino Acids/Electrolytes/Dextrose 1,440 mls @ 60 mls/hr IV DAILY@1800 [facility] Stop: 04/01/21 17:59 Last Admin: 03/31/21 18:37 Dose: 60 mls/hr Documented by: ERIC Fat Emulsion Intravenous (Intralipid) 204 mls @ 17 mls/hr IVCONT BID@0600,1800 [facility] Stop: 04/01/21 17:59 Last Admin: 04/01/21 06:50 Dose: 17 mls/hr Documented by: IVETT Multi-Ingred Medicated Throat [place] (Throat [place], Medicated 20 Ml Bottle) 1 spray MUCOUS MEM Q2H PRN PRN Reason: throat discomfort Last Admin: 03/26/21 12:29 Dose: 1 spray Documented by: TANISHA Naloxone HCl (Naloxone Hcl 0.4 Mg/Ml Vial) 0.2 mg IVPUSH Q2M PRN PRN Reason: Excessive sedation or RR < 8 Nicotine (Nicotine 21 Mg Patch.Td24) 21 mg TRANSDERMA DAILY [facility] Last Admin: 03/31/21 08:41 Dose: 21 mg Documented by: ERIC Ondansetron HCl (Ondansetron Hcl 4 Mg/2 Ml Vial) 4 mg IVPUSH Q8H PRN PRN Reason: Nausea Last Admin: 03/31/21 18:23 Dose: 4 mg Documented by: ERIC Oxycodone HCl (Oxycodone Hcl Immed Release 5 Mg Tablet) 5 mg PO Q4H PRN PRN Reason: Pain, Moderate (Pain Scale 4-6 Last Admin: 03/30/21 09:52 Dose: 5 mg Documented by: AZUCENA Oxycodone HCl (Oxycodone Hcl Immed Release 5 Mg Tablet) 10 mg PO Q4H PRN PRN Reason: Pain, Severe (Pain Scale 7-10) Last Admin: 03/30/21 13:05 Dose: 10 mg Documented by: AZUCENA Pharmacy Consult (Consult Rx Perform Med Rec) 1 each MISCELLANE ONCE PRN PRN Reason: Consult order Trazodone HCl (Trazodone Hcl 50 Mg Tablet) 50 mg PO BEDTIME [facility] Last Admin: 03/31/21 21:06 Dose: 50 mg Documented by: IVETT <Dora Victoria PA-C - Last Filed: 04/01/21 08:54> Labs CBC & Chem 7: : 03/26/21 05:10 04/01/21 05:19 <Dora Victoria PA-C - Last Filed: 04/01/21 08:54> Labs: Laboratory Results - last 24 hr 03/31/21 04/01/21 05:19 05:19 Anion Gap 13 Estim Creat Clear Calc 87.0 Estimated GFR > 60 Random Glucose 109 Calcium 8.8 Phosphorus 4.0 Magnesium 1.9 Albumin 3.1 L <Dora Victoria PA-C - Last Filed: 04/01/21 08:54> Procedures Date of Service Date of Service: 04/01/21 <Dora Victoria PA-C - Last Filed: 04/01/21 08:54> Progress Note: A&P Assessment and plan (1) S/P exploratory laparotomy: Status: Acute <Dora Victoria PA-C - Last Filed: 04/01/21 08:54> Assessment and Plan: Passing flatus Pain much better Tolerating clear liquids but says she did have an episode of nausea last night Abdomen still distended although soft Incision is well healing Re-evaluate later on today if we can advance her diet DC home once tolerating diet Clinically doing well Ambulate Seen examined - agree with STEPHANIE Victoria <Torey Benites MD - Last Filed: 04/01/21 09:23> (2) Moderate malnutrition: Status: Acute <Dora Victoria PA-C - Last Filed: 04/01/21 08:54> (3) Small bowel obstruction: Status: Acute <Dora Victoria PA-C - Last Filed: 04/01/21 08:54> Assessment and Plan: 56 year old female admitted with SBO now POD #6 s/p ex lap, extensive DONA, small bowel resection x2. NGT dislodged yesterday. She has been tolerating liquids and is passing more flatus but remains distended. VSS. Incision clean. Will cont clear liquids, possible advancement to solid food later today. Encouraged OOB/ambulation of halls? multiple times today. Malnutrition- was on PPN. Will add PO supplements since tolerating PO intake. ? <DOMINIQUE Diaz Last Filed: 04/01/21 08:54> Fall Risk Details Current Medications: Current Medications Acetaminophen (Acetaminophen 325 Mg Tablet) 650 mg PO Q4H PRN PRN Reason: Fever >101 Last Admin: 03/29/21 22:36 Dose: 650 mg Documented by: Albuterol Sulfate (Albuterol Sulfate 90 Mcg 8 Gm Inhaler) 2 puff INHALE Q4H PRN PRN Reason: Shortness Of Breath Amitriptyline HCl (Amitriptyline Hcl 25 Mg Tablet) 25 mg PO BEDTIME [facility] Last Admin: 03/31/21 21:06 Dose: 25 mg Documented by: Benzocaine (Throat Lozenge, Medicated Lozenge) 1 lozenge MUCOUS MEM Q2H PRN PRN Reason: Sore Throat Last Admin: 03/29/21 20:30 Dose: 1 lozenge Documented by: Bupropion HCl (Bupropion Hcl Xl 150 Mg Tab.Er.24h) 150 mg PO DAILY [facility] Last Admin: 03/31/21 08:41 Dose: 150 mg Documented by: Enoxaparin Sodium (Enoxaparin Sodium 40 Mg/0.4 Ml Syringe) 40 mg SUBCUT Q24H [facility] Last Admin: 03/31/21 11:25 Dose: 40 mg Documented by: Famotidine (Famotidine/Pf 20 Mg/2 Ml Vial) 20 mg IVPUSH Q12H [facility] Last Admin: 04/01/21 00:05 Dose: 20 mg Documented by: Hydromorphone HCl (Hydromorphone Hcl 0.5 Mg/0.5 Ml Syringe) 0.5 mg IVPUSH Q3H PRN; Protocol PRN Reason: Pain, Severe (Pain Scale 7-10) Last Admin: 04/01/21 06:27 Dose: 0.5 mg Documented by: Multivitamins 14 ml/ Trace Metals 1.4 ml/ Amino Acids/Electrolytes/Dextrose 1,440 mls @ 60 mls/hr IV DAILY@1800 [facility] Stop: 04/01/21 17:59 Last Admin: 03/31/21 18:37 Dose: 60 mls/hr Documented by: Fat Emulsion Intravenous (Intralipid) 204 mls @ 17 mls/hr IVCONT BID@0600,1800 [facility] Stop: 04/01/21 17:59 Last Admin: 04/01/21 06:50 Dose: 17 mls/hr Documented by: Multi-Ingred Medicated Throat [place] (Throat [place], Medicated 20 Ml Bottle) 1 spray MUCOUS MEM Q2H PRN PRN Reason: throat discomfort Last Admin: 03/26/21 12:29 Dose: 1 spray Documented by: Naloxone HCl (Naloxone Hcl 0.4 Mg/Ml Vial) 0.2 mg IVPUSH Q2M PRN PRN Reason: Excessive sedation or RR < 8 Nicotine (Nicotine 21 Mg Patch.Td24) 21 mg TRANSDERMA DAILY [facility] Last Admin: 03/31/21 08:41 Dose: 21 mg Documented by: Ondansetron HCl (Ondansetron Hcl 4 Mg/2 Ml Vial) 4 mg IVPUSH Q8H PRN PRN Reason: Nausea Last Admin: 03/31/21 18:23 Dose: 4 mg Documented by: Oxycodone HCl (Oxycodone Hcl Immed Release 5 Mg Tablet) 5 mg PO Q4H PRN PRN Reason: Pain, Moderate (Pain Scale 4-6 Last Admin: 03/30/21 09:52 Dose: 5 mg Documented by: Oxycodone HCl (Oxycodone Hcl Immed Release 5 Mg Tablet) 10 mg PO Q4H PRN PRN Reason: Pain, Severe (Pain Scale 7-10) Last Admin: 03/30/21 13:05 Dose: 10 mg Documented by: Pharmacy Consult (Consult Rx Perform Med Rec) 1 each MISCELLANE ONCE PRN PRN Reason: Consult order Trazodone HCl (Trazodone Hcl 50 Mg Tablet) 50 mg PO BEDTIME [facility] Last Admin: 03/31/21 21:06 Dose: 50 mg Documented by: <Dora Victoria PA-C - Last Filed: 04/01/21 08:54> Time Spent With Patient Time: Total time spent is greater than 50% in coordination of care (as documented) at patient's floor/unit and/or counseling patient: <Dora Victoria PA-C - Last Filed: 04/01/21 08:54> Time with patient: 15 - 24 minutes <Dora Victoria PA-C - Last Filed: 04/01/21 08:54> Quality Stroke Does the patient have a stroke diagnosis?: No <Dora Victoria PA-C - Last Filed: 04/01/21 08:54> VTE Prior VTE?: No <Dora Victoria PA-C - Last Filed: 04/01/21 08:54> VTE Risk Level:: Surgical - moderate <Dora Victoria PA-C - Last Filed: 04/01/21 08:54> VTE Device Contraindication: Treatment Not Indicated <Dora Victoria PA-C - Last Filed: 04/01/21 08:54> VTE Drug Contraindication: N/A - Med Ordered <Dora Victoria PA-C - Last Filed: 04/01/21 08:54>
[2021-04-01] MEDS: Nicotine 21 MG PATCH.TD24 TRANSDERMA (09:00)
[2021-04-01] MEDS: buPROPion HCl XL 150 MG TAB.ER.24H PO (09:00)
[2021-04-01 10:21] LABS: Phosphorus 4.3 mg/dL (2.7-4.5)
--- NOTE | 2021-04-01 11:20 | MHC.CLN ---
F/U DIET ADVANCED TO CLEAR LIQUID WITH ENSURE CLEAR TID. SUPPLEMENT PROVIDES 720 KCAL AND 24 G PROTEIN. PER PROVIDER, OK TO DISCONTINUE PPN. DISCUSSED WITH PHARMACIST. PATIENT APPEARS TO BE TOLERATING CLEAR LIQUID DIET. CONTINUE TO FOLLOW FOR DIET TOLERANCE/ADVANCEMENT.
[2021-04-01] MEDS: Enoxaparin Sodium 40 MG/0.4 ML SYRINGE SUBCUT (11:39)
[2021-04-01 12:00] VITALS: BP 117/61; PULSE 91; RESP 17; TEMP 36.6; O2SAT 98
--- NOTE | 2021-04-01 15:31 | PM.EVENT ---
Event Note Date of Service: 04/01/21 Event Note: Passing good flatus Had BMs Abdomen soft although still a little distended She says he feels well Has been ambulating Does have some pain issues Wants to eat Okay to start regular diet If she continues to do well, likely home tomorrow
[2021-04-01 16:13] VITALS: BP 114/58; PULSE 90; RESP 22; TEMP 36.6; O2SAT 96
[2021-04-01] MEDS: oxyCODONE HCl Immed Release 5 MG TABLET PO (18:15)
[2021-04-01 19:05] VITALS: BP 105/52; PULSE 98; RESP 22; TEMP 36.6; O2SAT 98
[2021-04-01] MEDS: Amitriptyline HCl 25 MG TABLET PO (19:17)
[2021-04-01] MEDS: traZODone HCL 50 MG TABLET PO (19:19)
[2021-04-01 22:55] VITALS: BP 109/62; PULSE 85; RESP 19; TEMP 36.1; O2SAT 97
[2021-04-02 03:36] VITALS: BP 109/55; PULSE 80; RESP 18; TEMP 36.4; O2SAT 96
[2021-04-02] MEDS: HYDROmorphone HCl 0.5 MG/0.5 ML SYRINGE IVPUSH ×2 (05:59→09:11)
[2021-04-02 08:00] VITALS: BP 118/59; PULSE 89; RESP 17; TEMP 36.4; O2SAT 98
[2021-04-02] MEDS: buPROPion HCl XL 150 MG TAB.ER.24H PO (09:10)
[2021-04-02] MEDS: Nicotine 21 MG PATCH.TD24 TRANSDERMA (09:10)
[2021-04-02 12:00] VITALS: BP 113/52; PULSE 96; RESP 18; TEMP 36.7; O2SAT 98
[2021-04-02] MEDS: oxyCODONE HCl Immed Release 5 MG TABLET 10 MG PO ×2 (12:51→16:00)
[2021-04-02] MEDS: Enoxaparin Sodium 40 MG/0.4 ML SYRINGE SUBCUT (12:57)
[2021-04-02] MEDS: Famotidine/PF 20 MG/2 ML VIAL IVPUSH (13:02)
--- NOTE | 2021-04-02 14:33 | PM.DS ---
DS: Providers Provider Date of Service: 04/02/21 Date of admission: 03/22/21 09:03 Date of discharge: 04/02/21 Primary care physician: Nory Valero Admitting clinician: Torey Benites Attending physician on admission: Torey Benites Consults: 03/23/21 04:49 Consult to Gastroenterology Routine Consulting Provider: Lilo Parr Reason for consultation: coffee ground gastric contents Attending physician on discharge: Nelda Brooks DS: Diagnosis Discharge Diagnosis (1) S/P exploratory laparotomy: Status: Acute (2) Moderate malnutrition: Status: Acute (3) Small bowel obstruction: Status: Acute DS: Summary Hospital Course Hospital Course: 56 year old female admitted with SBO now s/p ex lap, extensive DONA, small bowel resection x2. She has been tolerating liquids and regular diet. Incision clean. ambulating well. plan to dc home and fu as outpatient Time spent discussing smoking cessation with patient: 3 to 10 minutes Status at Discharge Functional status at discharge: independent ambulation Overall status at discharge: patient is back to baseline Time Spent with Patient Time attestation: Total time spent providing and/or coordinating discharge services: Discharge coordination time: Less than 30 minutes Quality: Stroke Does the patient have a stroke diagnosis?: No Reason for No Anti-thrombotic at DC: N/A - Med Ordered Reason for No Anticoagulant at DC: N/A - Med Ordered Physical Exam Vital Signs: Vital Signs: Last Vital Signs Temp 98.0 F 04/02/21 12:00 Pulse 96 04/02/21 12:00 Resp 18 04/02/21 12:00 BP 113/52 L 04/02/21 12:00 Pulse Ox 98 04/02/21 12:00 Body Mass Index 19.1 GI: Other: soft mild tenderness nondistended active bowel sounds DS: Data Data Completed and Pending Completed studies during hospitalization [Text1]: Pending at discharge 03/25/21 15:03 Surgical [PTH] Routine Labs on day of discharge: Preliminary micro results at discharge 03/22/21 05:43 Blood Culture - Preliminary Blood - Venous Clostridium species Discharge Plan Discharge Patient Disposition: Home, Self-Care Discharge Diagnosis: SBO, s/p laparotomy and enterolysis, small bowel resection Referrals: Nory Valero [Primary Care Provider] - 1 Week Torey Benites MD [Physician] - 2 Weeks Discharge Medications: New oxycodone-acetaminophen [Percocet] 5-325 mg tablet 1 tab PO Q4-6H PRN (Reason: pain,severe) Qty: 30 RF: 0 ibuprofen 600 mg tablet 600 mg PO Q6H PRN (Reason: pain) Qty: 30 RF: 0 Continued trazodone 50 mg tablet 1 tab PO BEDTIME RF: 0 nicotine 21 mg/24 hr patch 24 hour 1 patch topical DAILY RF: 0 cholecalciferol (vitamin D3) 50 mcg (2,000 unit) capsule 50 mcg PO DAILY 30 Days Qty: 30 RF: 11 calcium citrate 250 mg calcium tablet 250 mg PO BID 30 Days Qty: 60 RF: 11 polyethylene glycol 3350 [Miralax] 17 gram powder in packet 17 g PO DAILY Qty: 30 RF: 5 docusate sodium [Colace] 100 mg capsule 200 mg PO BEDTIME Qty: 60 RF: 5 amitriptyline 25 mg tablet 25 mg PO BEDTIME RF: 0 lidocaine [Lidoderm] 5 % adhesive patch,medicated 2 patch topical DAILY RF: 0 sennosides [senna] 8.6 mg tablet 17.2 mg PO BEDTIME PRN (Reason: Constipation) RF: 0 bupropion HCl [Wellbutrin XL] 150 mg tablet extended release 24 hr 150 mg PO DAILY RF: 0 omeprazole 20 mg tablet,delayed release (DR/EC) 20 mg PO BID RF: 0 albuterol sulfate [Ventolin HFA] 90 mcg/actuation HFA aerosol inhaler 2 puff inhalation Q4-6H PRN (Reason: Shortness Of Breath) RF: 0 Discharge Orders: Discharge Order (Routine); Ordered 04/02/21 Ordered By: Nelda Brooks Diet: advance to usual diet Activity on Discharge: No heavy lifting Stand Alone Forms: Patient Portal Discharge page Activity Restrictions/Additional Instructions: If the incision area is tender, you may apply an ice pack for short intervals (No more than 20 minutes on, followed by at least 20 minutes off). Do not apply heat. Do not use creams, lotions, or topical antibiotics unless instructed to do so by your surgeon. These can cause infection or allergic reaction. OK to shower No lifting more than 20 lb No strenuous activities Call the office for follow-up in 2 weeks - with Dr. Benites Call Your Doctor If: -Your temperature exceeds 101.5? F -You experience excessive pain or swelling -You have an unexpected reaction to medication -You have excessive bleeding -You experience continued vomiting/nausea -Your incision begins to separate -Your incision shows signs of infection such as increased redness, swelling, excessive pain, drainage (light blood or clear fluid is normal) or heat Care Plan Goals: Return to baseline health and gradual return to activity following recovery period. Health Concerns: SBO, s/p exploratory laparotomy, small bowel resection Plan of Treatment: Discharge to home, f/u in office with Dr. Benites Assessment: Doing well post op
--- NOTE | 2021-04-02 15:02 | MHC.CM.PN ---
PT CLEARED TO [facility] HOME TODAY WITH NO NEW SERVICES ORDERED
[2021-04-02 15:46] VITALS: BP 89/54; PULSE 104; RESP 18; TEMP 37; O2SAT 98
[2021-04-02] MEDS: Acetaminophen 325 MG TABLET 650 MG PO (16:01)
== END 2021-04-02 17:30 | disposition home or self-care (01) | DRG 230 ==
LOC: HO.ED 08:56 → HO.EDOVER 09:08 → HO.S3 03-23 12:09
PROVIDERS: Hospitalist; Physician Assistant Surgical; Student in an Organized Health Care Education/Training Program; Surgery; Admitting Provider Surgery; Emergency Provider Emergency Medicine; PCP Nurse Practitioner; Visit Provider Surgery
PROC: 0DBA0ZZ Excision of Jejunum, Open Approach (ICD-10-PCS; CPT 49000; principal; 2021-03-25 13:30)
DX: K91.30 Postprocedural intestinal obstruction, unspecified as to partial versus complete (principal); E44.0 Moderate protein-calorie malnutrition; F17.210 Nicotine dependence, cigarettes, uncomplicated; K56.7 Ileus, unspecified; Z20.822 Contact with and (suspected) exposure to COVID-19; Z71.6 Tobacco abuse counseling; Z68.1 Body mass index [BMI] 19.9 or less, adult; Z88.5 Allergy status to narcotic agent; Z79.899 Other long term (current) drug therapy
CPT/HCPCS: 36415; 71045; 74018; 74176; 74177; 80048; 80053; 82040; 82271; 83605; 83690; 83735; 84100; 84478; 85025; 85610; 86850; 86900; 86901; 87040; 87205; 87635; 88307; 96361; 96365; 96375; 99024; 99285; C1758; J0131; J0330; J0690; J0696; J1100; J1170; J1650; J1885; J2060; J2250; J2270; J2405; J2543; J2550; J3010; Q9967

== ENCOUNTER 2021-04-05 01:43 | Inpatient (IN) | payer MEDICAID, SELFPAY ==
[2021-04-05] VITALS (10 sets, daily range): BP systolic 90–128; BP diastolic 48–76; PULSE 72–84; RESP 14–20; TEMP 36.9; O2SAT 95–98; BMI 23.8
--- NOTE | ~2021-04-05 | CT_ITS ---
EXAMINATION: CT ABDOMEN AND PELVIS WITH CONTRAST CLINICAL INFORMATION: Abdominal pain, status post bowel resection COMPARISON: 03/24/2021 TECHNIQUE: Multidetector volumetric images were obtained from the superior aspect of the liver through the pubic symphysis following administration 85 mL of Omnipaque 350 intravenous contrast. Sagittal and coronal reformatted images were obtained on the technologist's workstation. Oral contrast: No This CT examination was performed using dose optimization techniques as appropriate, variously including the following: *Automated exposure control *Adjustment of mA and/or kV according to patient size (this includes techniques or standardized protocols for targeted exams where dose is matched to indication/reason for exam; i.e. extremities or head) *Use of iterative reconstruction technique DLP: 302 mGy-cm FINDINGS: LUNG BASES: The visualized lung bases demonstrate subsegmental atelectasis. LIVER, GALLBLADDER, AND BILIARY TREE: The liver is normal in size, shape, and attenuation. No focal hepatic lesion or biliary ductal dilatation is present. The gallbladder is unremarkable with no evidence of radiopaque gallstones, gallbladder wall thickening, or obvious pericholecystic inflammatory changes. PANCREAS: Unremarkable. SPLEEN: Unremarkable. ADRENAL GLANDS: Unremarkable. KIDNEYS AND URETERS: The kidneys are normal in size, shape, and attenuation. Mildly prominent right extrarenal pelvis is noted. No obstructing calculi seen. Mid and upper left renal cysts are noted; no follow-up recommended. No perinephric stranding. BLADDER: Unremarkable. GASTROINTESTINAL TRACT: Small bowel suture line is present in the right lower quadrant. There is fluid distention of several small bowel loops throughout the abdomen. In contrast, the distalmost small bowel in the pelvis appears collapsed. Overall fluid distention has improved since 03/24/2021. There is mild prominence of the transverse colon, though this is of uncertain clinical significance in the setting of incomplete distention and recent abdominal surgery. Small amount of pelvic free fluid is noted. No free air is seen. ABDOMINAL WALL: There are anterior skin isaias along the midline with underlying subcutaneous stranding from prior incision. LYMPH NODES: Normal. VASCULAR: Unremarkable. PELVIC VISCERA: Patient is status post hysterectomy. OSSEOUS STRUCTURES: Unremarkable. CT/CT abdomen pelvis w con IMPRESSION: Fluid distention of several small bowel loops throughout the abdomen. Distalmost small bowel in the pelvis appears collapsed. Appearance could represent sequelae of a partial small bowel obstruction, though postoperative ileus would also be a consideration in the setting of recent surgery. If clinically warranted, a water-soluble fluoroscopic small bowel series may be helpful. Fleischner guidelines were followed.
--- NOTE | 2021-04-05 01:53 | ED_ITS ---
HPI - Abdominal Pain General Chief Complaint: Abdominal Pain Stated Complaint: abd/back pain (surg 1 week ago) Time Seen by Provider: 04/05/21 01:51 Source: patient and echometer engineer Mode of arrival: EMS History of Present Illness HPI narrative: 56-year-old female presents via EMS after having been discharged on 04/02 to home and unfortunately patient states that her pain medications were sent to [facility] which is closed for the holidays and then subsequent weakened. Patient states that she has tried to treat herself with T ylenol since that time, but states this evening she was not able to take it any more and states that she is having chills secondary to the pain and endorses that she has continued to pass flatus. She has had an episode of nausea and vomiting since arrival to the emergency room. Related Data Home Medications Medication Instructions Recorded Confirmed albuterol sulfate 90 mcg/actuation 2 puff INHALATION Q4-6H PRN 04/30/20 03/22/21 aerosol inhaler (Ventolin HFA) amitriptyline 25 mg tablet 25 mg PO BEDTIME 04/30/20 03/22/21 bupropion HCl 150 mg 24 hr tablet, 150 mg PO DAILY 04/30/20 03/22/21 extended release (Wellbutrin XL) lidocaine 5 % topical patch 2 patch TOPICAL DAILY 04/30/20 03/22/21 (Lidoderm) omeprazole 20 mg tablet,delayed 20 mg PO BID 04/30/20 03/22/21 release sennosides 8.6 mg tablet (senna) 17.2 mg PO BEDTIME PRN tab 04/30/20 03/22/21 nicotine 21 mg/24 hr daily 1 patch TOPICAL DAILY 03/22/21 03/22/21 transdermal patch trazodone 50 mg tablet 1 tab PO BEDTIME 03/22/21 03/22/21 Previous Rx's Medication Instructions Recorded docusate sodium 100 mg capsule 200 mg PO BEDTIME #60 cap 06/09/20 (Colace) polyethylene glycol 3350 17 gram 17 g PO DAILY #30 ea 06/09/20 oral powder packet (Miralax) calcium citrate 250 mg PO BID 30 Days #60 tab 07/30/20 cholecalciferol (vitamin D3) 50 50 mcg PO DAILY 30 Days #30 cap 07/30/20 mcg (2,000 unit) capsule ibuprofen 600 mg tablet 600 mg PO Q6H PRN #30 tab 04/01/21 oxycodone-acetaminophen 5 mg-325 1 tab PO Q4-6H PRN #30 tab 04/01/21 mg tablet (Percocet) ibuprofen 600 mg tablet 600 mg PO TID PRN #10 tab 04/02/21 oxycodone 5 mg tablet 5 mg PO Q6H PRN #10 tab 04/02/21 Allergies Allergy/AdvReac Type Severity Reaction Status Date / Time tramadol [TRAMADOL] Allergy Unknown NAUSEA & Verified 12/29/20 13:04 VOMITING Review of Systems Review of Systems Pertinent positives and negatives as stated in HPI 10 point review of systems is otherwise negative. Physical Exam Vital Signs: Vital Signs: Last Vital Signs Temp 98.4 F 04/05/21 02:07 Pulse 77 04/05/21 05:16 Resp 14 04/05/21 05:16 BP 90/51 L 04/05/21 05:16 Pulse Ox 98 04/05/21 05:16 Body Mass Index 23.8 VITAL SIGNS: Reviewed. GENERAL: Appears older than stated age, quite thin, in moderate to severe distress secondary to pain HEAD: Normocephalic/atraumatic EYES: PERRLA, EOMI OROPHARYNX: no oral lesions noted, posterior pharynx clear NECK: Supple, no adenopathy LUNGS: Normal breath sounds. No adventitious sounds or accessory muscle use. Sp O2<95> CARDIOVASCULAR: Regular rate and rhythm without noted murmurs ABDOMEN: Soft, appropriate tenderness on palpation, midline incision well approximated without erythema/induration/discharge, non-distended with hypoactive bowel sounds. SKIN: Inspection of the skin reveals no rashes NEUROLOGIC: Alert and oriented x 4. Course Course Course Narrative: 56-year-old female with history and clinical presentation consistent with inadequate pain control after surgery and will achieve good pain control while here in the emergency room as well as checking basic labs and ensuring no ileus/SBO. Review of all investigations concerning for significantly elevated transaminases and initially concern regarding patient's use of Tylenol for her pain levels and on obtaining further information from the patient via home care rn patient states that she took 12-325 mg tablets of acetaminophen for a total of 3900 mg since Tuesday the . Although this is within the 4000 mg dosage range patient has also had slowed GI transit due to recent surgery. Acetaminophen level is 39. I discussed the case with both inpatient hospitalist who accepts admission as well as with GI consultation. CT scan was returned as possible partial bowel obstruction and/or ileus. This was discussed with the data consultant who recommends NPO with sips (also provides additional information that patient received a paper script for Percocet). Patient is otherwise hemodynamically stable and both the 1st and 2nd acetylcysteine doses have been ordered as well as repeat acetaminophen level at 8:00 a.m.. This was all updated to the inpatient hospitalist. Reevaluation(s) Reevaluation #1: GI recommends proceeding with NAC as though overdose, obtaining CPK, and trending INR. Time: 05:13 MDM - Abdominal Pain Lab Data Result diagrams: 04/05/21 02:05 04/05/21 02:05 Labs: Lab Results 04/05/21 04/05/21 04/05/21 Range/Units 02:05 02:05 03:17 WBC 13.6 H (4.8-10.8) X10*3/uL RBC 3.72 L (4.20-5.50) X10*6/uL Hgb 12.0 (12.0-16.0) g/dl Hct 34.9 L (37.0-47.0) % MCV 93.8 (80.0-98.0) fL MCH 32.3 (27.0-33.0) pg MCHC 34.4 (31.0-35.0) g/dl RDW 11.9 (11.0-16.0) % Plt Count 560 H D (160-400) X10*3/uL MPV 9.0 L (9.4-12.3) fL Immature Gran % (Auto) 0.7 H (0.0-0.4) % Neut % (Auto) 74.4 H (45-73) % Lymph % (Auto) 12.1 L (20-40) % [place] % (Auto) 10.5 (2-11) % Eos % (Auto) 1.6 (0-4) % Baso % (Auto) 0.7 (0-2) % Lymph # (Auto) 1.6 (1.2-4.9) X10*3/uL [place] # (Auto) 1.4 H (0.1-1.2) X10*3/uL Eos # (Auto) 0.2 (0.0-0.4) X10*3/uL Baso # (Auto) 0.1 (0.0-0.2) X10*3/uL Abs Immat Gran (auto) 0.10 H (0.00-0.03) X10*3/uL Absolute Neuts (auto) 10.1 H (2.0-8.3) x10*3/uL Absolute Nucleated RBC 0.000 (0.0-0.012) X10*3/uL Nucleated RBC % (auto) 0.0 (0.0-0.2) /100WBC PT (9.9-13.0) SEC INR (0.9-1.1) Sodium 138 (135-145) mmol/L Potassium 3.2 L (3.3-5.1) mmol/L Chloride 98 (96-108) mmol/L Carbon Dioxide 22 (22-29) mmol/L Anion Gap 21 H (12-20) BUN 14 D (9-16) mg/dL Creatinine 0.68 (0.5-1.4) mg/dL Estim Creat Clear Calc 64.3 Estimated GFR > 60 Random Glucose 128 H (60-115) mg/dL Lactic Acid 0.7 (0.5-2.0) mmol/L Calcium 9.3 (8.4-10.2) mg/dL Magnesium 1.6 (1.6-2.6) mg/dL Total Bilirubin 0.5 (0.0-1.0) mg/dL AST 1035 H (5-31) U/L ALT 916 H (0-31) U/L Alkaline Phosphatase 351 H D (39-117) U/L Total Creatine Kinase 61 (26-140) U/L Total Protein 7.0 (6.5-8.0) g/dL Albumin 4.0 D (3.5-5.0) g/dL Lipase 26 (8-78) U/L Urine Color Urine Appearance Urine pH (5.0-8.0) Ur Specific [place] (1.005-1.025) Urine Protein (NEG-TRACE) MG/DL Urine Glucose (UA) (NEG) MG/DL Urine Ketones (NEG) MG/DL Urine Blood (NEG) Urine Nitrite (NEG) Ur Leukocyte Esterase (NEG) Acetaminophen 39 H (<30) mcg/mL COVID-19 (EVELYN) (Negative) COVID-19 Clin Com 04/05/21 04/05/21 04/05/21 Range/Units 03:44 05:27 05:27 WBC (4.8-10.8) X10*3/uL RBC (4.20-5.50) X10*6/uL Hgb (12.0-16.0) g/dl Hct (37.0-47.0) % MCV (80.0-98.0) fL MCH (27.0-33.0) pg MCHC (31.0-35.0) g/dl RDW (11.0-16.0) % Plt Count (160-400) X10*3/uL MPV (9.4-12.3) fL Immature Gran % (Auto) (0.0-0.4) % Neut % (Auto) (45-73) % Lymph % (Auto) (20-40) % [place] % (Auto) (2-11) % Eos % (Auto) (0-4) % Baso % (Auto) (0-2) % Lymph # (Auto) (1.2-4.9) X10*3/uL [place] # (Auto) (0.1-1.2) X10*3/uL Eos # (Auto) (0.0-0.4) X10*3/uL Baso # (Auto) (0.0-0.2) X10*3/uL Abs Immat Gran (auto) (0.00-0.03) X10*3/uL Absolute Neuts (auto) (2.0-8.3) x10*3/uL Absolute Nucleated RBC (0.0-0.012) X10*3/uL Nucleated RBC % (auto) (0.0-0.2) /100WBC PT 18.2 H (9.9-13.0) SEC INR 1.6 H (0.9-1.1) Sodium (135-145) mmol/L Potassium (3.3-5.1) mmol/L Chloride (96-108) mmol/L Carbon Dioxide (22-29) mmol/L Anion Gap (12-20) BUN (9-16) mg/dL Creatinine (0.5-1.4) mg/dL Estim Creat Clear Calc Estimated GFR Random Glucose (60-115) mg/dL Lactic Acid (0.5-2.0) mmol/L Calcium (8.4-10.2) mg/dL Magnesium (1.6-2.6) mg/dL Total Bilirubin (0.0-1.0) mg/dL AST (5-31) U/L ALT (0-31) U/L Alkaline Phosphatase (39-117) U/L Total Creatine Kinase (26-140) U/L Total Protein (6.5-8.0) g/dL Albumin (3.5-5.0) g/dL Lipase (8-78) U/L Urine Color YELLOW Urine Appearance CLEAR Urine pH 5.5 (5.0-8.0) Ur Specific [place] 1.015 (1.005-1.025) Urine Protein NEG (NEG-TRACE) MG/DL Urine Glucose (UA) NEG (NEG) MG/DL Urine Ketones 15 (NEG) MG/DL Urine Blood NEG (NEG) Urine Nitrite NEG (NEG) Ur Leukocyte Esterase NEG (NEG) Acetaminophen (<30) mcg/mL COVID-19 (EVELYN) Negative (Negative) COVID-19 Clin Com See Note Discharge Plan Discharge Clinical Impression: Unintentional Tylenol overdose, Hepatotoxicity Patient Disposition: Admitted As Inpatient [facility] Past Medical History Source: nursing notes reviewed Medical History Abdominal adhesions Abdominal pain Acid reflux Chronic constipation Colitis Fibromyalgia Lupus Migraines Moderate malnutrition Osteoarthritis Osteoporosis Pulmonary nodules Vitamin D deficiency Surgical History H/O elbow surgery History of hysterectomy with oophorectomy History of removal of ovarian cyst Hx of appendectomy Hx of colonoscopy Hx of tonsillectomy Family History Family History Father Fibromyalgia Osteoporosis Mother Stroke Social History Social History Household Members: Family Housing: Apartment Do you presently have visiting nurse or other home services: No Alcohol intake: never Patient Tobacco Use Status: Current everyday Tobacco user Tobacco use type: Cigarette Cigarette Packs Per Day: 1 Cigarettes Per Day: 20.0 Years Smoked: 23 Second Hand Smoke Exposure: Yes Advance Directives: No Advance Directives Information Provided: Yes Patient : No service: No Current occupational status: disabled
[2021-04-05 02:09] LABS: MANUAL DIFF FLAG NO
[2021-04-05 02:17] LABS: Basophils Absolute Auto 0.1 X10*3/uL (0.0-0.2); Basophils Percent Auto 0.7 % (0-2); Eosinophils Absolute Auto 0.2 X10*3/uL (0.0-0.4); Eosinophils Percent Auto 1.6 % (0-4); Hematocrit 34.9 % (37.0-47.0); Imm Gran Pct Auto 0.7 % (0.0-0.4); Lymphocytes Absolute Auto 1.6 X10*3/uL (1.2-4.9); Lymphocytes Percent Auto 12.1 % (20-40); Mean Corpuscular HGB Conc 34.4 g/dl (31.0-35.0); Mean Corpuscular Hemoglobin 32.3 pg (27.0-33.0); Mean Corpuscular Volume 93.8 fL (80.0-98.0); Monocytes Absolute Auto 1.4 X10*3/uL (0.1-1.2); Monocytes Percent Auto 10.5 % (2-11); Neutrophils Absolute Auto 10.1 x10*3/uL (2.0-8.3); Neutrophils Percent Auto 74.4 % (45-73); Platelet Count 560 X10*3/uL (160-400); Red Blood Count 3.72 X10*6/uL (4.20-5.50); Red Cell Distribution Width 11.9 % (11.0-16.0); White Blood Count 13.6 X10*3/uL (4.8-10.8)
[2021-04-05] MEDS: fentaNYL citrate/PF 100 MCG/2 ML VIAL 25 MCG IVPUSH (02:28)
[2021-04-05] MEDS: 0.9 % Sodium Chloride 1,000 ML 999 ML IV ×2 (02:28→06:44)
[2021-04-05] MEDS: ondansetron HCL 4 MG/2 ML VIAL IVPUSH (02:28)
[2021-04-05] MEDS: HYDROmorphone HCl 0.5 MG/0.5 ML SYRINGE IVPUSH ×8 (02:28→22:53)
[2021-04-05 02:48] LABS: Alanine Aminotransferase 916 U/L (0-31); Alkaline Phosphatase 351 U/L (39-117); Anion Gap 21 (12-20); Aspartate Amino Transferase 1035 U/L (5-31); Bilirubin Total 0.5 mg/dL (0.0-1.0); Blood Urea Nitrogen 14 mg/dL (9-16); Calcium 9.3 mg/dL (8.4-10.2); Carbon Dioxide 22 mmol/L (22-29); Chloride 98 mmol/L (96-108); Creatinine Clr Calc Pharmacy 64.3; Estimated Glomerular Filt Rate > 60; Glucose Random 128 mg/dL (60-115); Potassium 3.2 mmol/L (3.3-5.1); Sodium 138 mmol/L (135-145)
[2021-04-05 03:11] LABS: Lipase 26 U/L (8-78); Magnesium 1.6 mg/dL (1.6-2.6)
[2021-04-05] MEDS: Piperacillin Sodium/Tazobactam 3.375 GM in 0.9 % Sodium Chloride 50 ML IV (03:32)
[2021-04-05 03:36] LABS: Lactic Acid 0.7 mmol/L (0.5-2.0)
[2021-04-05 04:04] LABS: COVID-19 Test Negative (Negative); IDNOW Serial# 9DD0AD1C
[2021-04-05] MEDS: iohexoL 350 MG/ML 100 ML INFUS..BTL 85 ML IV (04:12)
[2021-04-05 04:43] LABS: Acetaminophen LAB 39 mcg/mL (<30)
[2021-04-05] MEDS: Magnesium Sulfate/D5W 1 GM/100 ML PIGGYBACK IV (05:11)
--- NOTE | 2021-04-05 05:28 | PC.NURSE ---
call out to GI, service directly connected to Parr.
--- NOTE | 2021-04-05 05:28 | PC.NURSE ---
call out to surgery, no returned call.
[2021-04-05 05:32] LABS: Appearance Urine CLEAR; Color Urine YELLOW; Glucose Urine UA NEG (NEG); Leukocyte Esterase Urine NEG (NEG); Nitrite Urine NEG (NEG); PH 5.5 (5.0-8.0); Specific Gravity - Urine 1.015 (1.005-1.025); Urine Blood NEG (NEG); Urine Ketones 15 MG/DL (NEG); Urine Protein NEG (NEG-TRACE)
--- NOTE | 2021-04-05 05:32 | PC.NURSE ---
ED provider consult with GI and prescribed Acetylcysteine for patient. Medication needs to be mixed and this database report writer does not feel comfortable mixing medication. Clinical Natural Resource Technician contacted for guidance on the matter.
[2021-04-05 05:33] LABS: UACC Culture Trigger NO
[2021-04-05 05:37] LABS: INTERNATIONAL NORM RATIO 1.6 (0.9-1.1); Prothrombin Time 18.2 SEC (9.9-13.0)
--- NOTE | 2021-04-05 07:39 | PM.IMHP ---
History of Present Illness Date of Service: 04/05/21 Chief Complaint: Abdominal pain ?56 year old female with history of lupus, fibromyalgia, non-specific colitis who was admitted to surgery on 03/22/21 and discharged on 04/02/21 with diagnosis of SBO and s/p ex lap, extensive lysis of adhesion and small bowel resection x2. Patient reports that since going home she had been taking tyelenol for pain as she was not able to get Narcotics from the [facility] which is closed on holidays and weekend. She is found to have elevated LFTs with AST 1035, ALT 916, alk-phos 351, initial Tylenol level was 39 and repeat now 6, she is initiated on a Mucomyst. CT scan of the abdomen suggests ileus versus small-bowel obstruction. She has complained of significant abdominal pain, no fever, there is mild increase in WBC of 13. Review of Systems Review of Systems: Gen: no fever Resp: no sob, no cough CV: no chest, no DUMONT, no leg edema GI: +n/v, +abd pain Neuro: No confusion Yes all other systems are reviewed and are negative [facility] Medical History Abdominal adhesions Abdominal pain Acid reflux Chronic constipation Colitis Fibromyalgia Lupus Migraines Moderate malnutrition Osteoarthritis Osteoporosis Pulmonary nodules Vitamin D deficiency Family History Father Fibromyalgia Osteoporosis Mother Stroke Surgical History H/O elbow surgery History of hysterectomy with oophorectomy History of removal of ovarian cyst Hx of appendectomy Hx of colonoscopy Hx of tonsillectomy Social History Household Members: Family Housing: Apartment Do you presently have visiting nurse or other home services: No Alcohol intake: never Patient Tobacco Use Status: Current everyday Tobacco user Tobacco use type: Cigarette Cigarette Packs Per Day: 1 Cigarettes Per Day: 20.0 Years Smoked: 23 Second Hand Smoke Exposure: Yes Advance Directives: No Advance Directives Information Provided: Yes Patient : No service: No Current occupational status: disabled Meds Allergies Allergy/AdvReac Type Severity Reaction Status Date / Time tramadol [TRAMADOL] Allergy Unknown NAUSEA & Verified 12/29/20 13:04 VOMITING Active Medications: Current Medications Acetylcysteine 2,495 mg/ (Dextrose) 512.475 mls @ 125 mls/hr IV ONCE ONE Stop: 04/05/21 10:14 Home Medications Medication Instructions Recorded Confirmed Last Taken Type albuterol sulfate 90 mcg/actuation 2 puff INHALATION Q4-6H PRN 04/30/20 04/05/21 Unknown History aerosol inhaler (Ventolin HFA) amitriptyline 25 mg tablet 25 mg PO BEDTIME 04/30/20 04/05/21 Unknown History bupropion HCl 150 mg 24 hr tablet, 150 mg PO DAILY 04/30/20 04/05/21 Unknown History extended release (Wellbutrin XL) lidocaine 5 % topical patch 2 patch TOPICAL DAILY 04/30/20 04/05/21 Unknown History (Lidoderm) omeprazole 20 mg tablet,delayed 20 mg PO BID 04/30/20 04/05/21 07/14/20 07:40 History release 20 mg sennosides 8.6 mg tablet (senna) 17.2 mg PO BEDTIME PRN tab 04/30/20 04/05/21 Unknown History trazodone 50 mg tablet 1 tab PO BEDTIME 03/22/21 04/05/21 Unknown History Physical Exam Vital Signs and Narrative: Vital Signs: Last Vital Signs Temp 98.4 F 04/05/21 02:07 Pulse 77 04/05/21 05:16 Resp 15 04/05/21 06:02 BP 90/51 L 04/05/21 05:16 Pulse Ox 98 04/05/21 05:16 Body Mass Index 23.8 Const: Other: Constitutional: Alert, iin some distress Mental Status: Oriented to person, place and time. Eyes: Pupils are equal, round and reactive to light. Ear, Nose and Throat: Oropharynx clear, mucous membranes moist. Ears and nose without eformities. Trachea midline. Respiratory: Clear to auscultation. No wheezing, rales or rhonchi. Cardiovascular: S1 S2 regular. No murmurs, rubs or gallops. Gastrointestinal: Abdomen soft, mild tenderness, non-distended. hardly any bowel sounds, sugical wound and isaias still in place, no erythema around wound Neurologic: Cranial nerves II-XII grossly intact. No focal neurological deficits. Moves all extremities spontaneously.? Skin: No rashes or lesions.? Musculoskeletal: No cyanosis or clubbing. Psychiatric: Normal mood and affect? Results Labs CBC and Chem 7: 04/06/21 06:14 04/06/21 06:14 Labs: Laboratory Results - last 24 hr 04/05/21 04/05/21 04/05/21 02:05 02:05 03:17 MCV 93.8 MCH 32.3 MCHC 34.4 RDW 11.9 Plt Count 560 H D MPV 9.0 L Immature Gran % (Auto) 0.7 H Neut % (Auto) 74.4 H Lymph % (Auto) 12.1 L [place] % (Auto) 10.5 Eos % (Auto) 1.6 Baso % (Auto) 0.7 Lymph # (Auto) 1.6 [place] # (Auto) 1.4 H Eos # (Auto) 0.2 Baso # (Auto) 0.1 Abs Immat Gran (auto) 0.10 H Absolute Neuts (auto) 10.1 H Absolute Nucleated RBC 0.000 Nucleated RBC % (auto) 0.0 PT INR Anion Gap 21 H Estim Creat Clear Calc 64.3 Estimated GFR > 60 Random Glucose 128 H Lactic Acid 0.7 Calcium 9.3 Magnesium 1.6 Total Bilirubin 0.5 AST 1035 H ALT 916 H Alkaline Phosphatase 351 H D Total Creatine Kinase 61 Total Protein 7.0 Albumin 4.0 D Lipase 26 Urine Color Urine Appearance Urine pH Ur Specific [place] Urine Protein Urine Glucose (UA) Urine Ketones Urine Blood Urine Nitrite Ur Leukocyte Esterase Acetaminophen 39 H COVID-19 (EVELYN) COVID-19 Clin Com 04/05/21 04/05/21 04/05/21 03:44 05:27 05:27 MCV MCH MCHC RDW Plt Count MPV Immature Gran % (Auto) Neut % (Auto) Lymph % (Auto) [place] % (Auto) Eos % (Auto) Baso % (Auto) Lymph # (Auto) [place] # (Auto) Eos # (Auto) Baso # (Auto) Abs Immat Gran (auto) Absolute Neuts (auto) Absolute Nucleated RBC Nucleated RBC % (auto) PT 18.2 H INR 1.6 H Anion Gap Estim Creat Clear Calc Estimated GFR Random Glucose Lactic Acid Calcium Magnesium Total Bilirubin AST ALT Alkaline Phosphatase Total Creatine Kinase Total Protein Albumin Lipase Urine Color YELLOW Urine Appearance CLEAR Urine pH 5.5 Ur Specific [place] 1.015 Urine Protein NEG Urine Glucose (UA) NEG Urine Ketones 15 Urine Blood NEG Urine Nitrite NEG Ur Leukocyte Esterase NEG Acetaminophen COVID-19 (EVELYN) Negative COVID-19 Clin Com See Note Imaging Radiologist's Impressions: Impressions Abdomen/Pelvis CT 04/05/21 02:55 IMPRESSION: Fluid distention of several small bowel loops throughout the abdomen. Distalmost small bowel in the pelvis appears collapsed. Appearance could represent sequelae of a partial small bowel obstruction, though postoperative ileus would also be a consideration in the setting of recent surgery. If clinically warranted, a water-soluble fluoroscopic small bowel series may be helpful. Fleischner guidelines were followed. Assessment and Plan (1) Hepatotoxicity: Status: Acute (2) Unintentional Tylenol overdose: Status: Acute (3) Small bowel obstruction: Status: Acute 56 year old female with history of lupus, fibromyalgia, non-specific colitis who was admitted to surgery on 03/22/21 and discharged on 04/02/21 with diagnosis of SBO and s/p ex lap, extensive lysis of adhesion and small bowel resection x2. Patient reports that since going home she had been taking tyelenol for pain as she was not able to get Narcotics from the [facility] which is closed on holidays and weekend. She is found to have elevated LFTs with AST 1035, ALT 916, alk-phos 351, and elevated Tyelenol and thus likely acetaminophen induced hepatotoxicity. 1. Unintentional Tylenol toxicity, hepatic toxicity. -continue Mucomyst per protocol -avoid Tylenol -repeat LFTs, consider ultrasound of the liver -GI consult -repeat INR 2. Small-bowel obstruction versus ileus in the setting of recent swallow all surgery -NPO -surgery consult -Dilaudid for pain Quality Stroke Does the patient have a stroke diagnosis?: No VTE Prior VTE?: No VTE Risk Level:: Medical - moderate - high VTE Device Contraindication: Treatment Not Tolerated VTE Drug Contraindication: N/A - Med Ordered
--- NOTE | 2021-04-05 08:23 | PC.NURSE ---
pt c/o pain, requesting pain medication. made aware.
[2021-04-05 08:43] LABS: Acetaminophen LAB 6 mcg/mL (<30)
[2021-04-05 08:52] LABS: Lactate Dehydrogenase 561 U/L (122-220)
[2021-04-05] MEDS: Dextrose 5 % and 0.45 % NaCl 1,000 ML 100 ML IVCONT ×2 (09:29→21:10)
[2021-04-05 09:52] LABS: Alanine Aminotransferase 717 U/L (0-31); Albumin Level 3.4 g/dL (3.5-5.0); Alkaline Phosphatase 279 U/L (39-117); Aspartate Amino Transferase 559 U/L (5-31); Bilirubin Direct 0.3 mg/dL (0.0-0.5); Bilirubin Total 0.5 mg/dL (0.0-1.0); Total Protein 5.9 g/dL (6.5-8.0)
--- NOTE | 2021-04-05 10:04 | PM.GICN ---
History of Present Illness Data of Consult Service Date: 04/05/21 Requesting physician: Anish Mckinney Primary Care Provider: Unknown Physician HPI Reason for consult: abn LFT 56 year old female with history of lupus, fibromyalgia, non-specific colitis and recent exp laparotomy who I am seeing for assessment for abn LFT. The patient had surgery for SBO with extensive lysis of adhesion and small bowel resection last week. Unfortunately hse never received pain medication at her pharmacy and ended up taking unknown dose of tylenol tablets every 2-3 hours for relief. She then came to ED for assessment due to ongoing uncontrolled pain and had some nausea and emesis whilst here, but is passing gas. she denies taking illicit drugs or alcohol. She is found to have elevated LFTs with? AST 1035, ALT 916, alk-phos 351, initial Tylenol level was 39 CT scan of the abdomen suggests ileus versus small-bowel obstruction. The ED physician called me this morning and I recommend checking INR and commencing NAC--INR came back at 1.6 had been 1.0 last admission Review of Systems Review of Systems: Gen: no fever Resp: no sob, no cough CV: no chest, no DUMONT, no leg edema GI: +n/v, +abd pain Neuro: No confusion Yes all other systems are reviewed and are negative Genitourinary: Genitourinary: Reports no additional female genitourinary complaints Neurologic: Reports system reviewed and no additional complaints, except as documented Hematologic/Lymphatic: Hematologic/Lymphatic: Reports no additional hematologic/lymphatic complaints Allergic/Immunologic: Allergic/Immunologic: Reports no additional allergic/immunologic complaints PMFSH Past Medical History Medical History Abdominal adhesions Abdominal pain Acid reflux Chronic constipation Colitis Fibromyalgia Lupus Migraines Moderate malnutrition Osteoarthritis Osteoporosis Pulmonary nodules Vitamin D deficiency Family History Family History Father Fibromyalgia Osteoporosis Mother Stroke Surgical History Surgical History H/O elbow surgery History of hysterectomy with oophorectomy History of removal of ovarian cyst Hx of appendectomy Hx of colonoscopy Hx of tonsillectomy Social History Social History Household Members: Family Housing: Apartment Do you presently have visiting nurse or other home services: No Alcohol intake: never Patient Tobacco Use Status: Current everyday Tobacco user Tobacco use type: Cigarette Cigarette Packs Per Day: 1 Cigarettes Per Day: 20.0 Years Smoked: 23 Second Hand Smoke Exposure: Yes Advance Directives: No Advance Directives Information Provided: Yes Patient : No service: No Current occupational status: disabled Meds Allergies Allergy/AdvReac Type Severity Reaction Status Date / Time tramadol [TRAMADOL] Allergy Unknown NAUSEA & Verified 12/29/20 13:04 VOMITING Active Medications: Current Medications Hydromorphone HCl (Hydromorphone Hcl 0.5 Mg/0.5 Ml Syringe) 0.5 mg IVPUSH Q4H PRN; Protocol PRN Reason: Pain, Severe (Pain Scale 7-10) Last Admin: 04/05/21 09:26 Dose: 0.5 mg Documented by: Acetylcysteine 2,495 mg/ (Dextrose) 512.475 mls @ 125 mls/hr IV ONCE ONE Stop: 04/05/21 10:14 Last Admin: 04/05/21 07:53 Dose: 125 mls/hr Documented by: Acetylcysteine 4,990 mg/ (Dextrose) 1,024.95 mls @ 62.5 mls/hr IV ONCE ONE Stop: 04/06/21 04:23 Dextrose/Sodium Chloride (D51/2ns) 1,000 mls @ 100 mls/hr IVCONT .Q10H NASH Last Admin: 04/05/21 09:29 Dose: 100 mls/hr Documented by: Melatonin (Melatonin 3 Mg Tablet) 6 mg PO BEDTIME PRN PRN Reason: Insomnia Sodium Chloride (0.9 % Sodium Chloride Flush 3 Ml Syringe) 3 ml IVFLUSH QSHIFT [facility] Home Medications Medication Instructions Recorded Confirmed Last Taken Type albuterol sulfate 90 mcg/actuation 2 puff INHALATION Q4-6H PRN 04/30/20 04/05/21 Unknown History aerosol inhaler (Ventolin HFA) amitriptyline 25 mg tablet 25 mg PO BEDTIME 04/30/20 04/05/21 Unknown History bupropion HCl 150 mg 24 hr tablet, 150 mg PO DAILY 04/30/20 04/05/21 Unknown History extended release (Wellbutrin XL) lidocaine 5 % topical patch 2 patch TOPICAL DAILY 04/30/20 04/05/21 Unknown History (Lidoderm) omeprazole 20 mg tablet,delayed 20 mg PO BID 04/30/20 04/05/21 07/14/20 07:40 History release 20 mg sennosides 8.6 mg tablet (senna) 17.2 mg PO BEDTIME PRN tab 04/30/20 04/05/21 Unknown History trazodone 50 mg tablet 1 tab PO BEDTIME 03/22/21 04/05/21 Unknown History Physical Exam Vital Signs: Vital Signs: Last Vital Signs Temp 98.4 F 04/05/21 02:07 Pulse 77 04/05/21 05:16 Resp 15 04/05/21 06:02 BP 90/51 L 04/05/21 05:16 Pulse Ox 98 04/05/21 05:16 Body Mass Index 23.8 GENERAL:? e thin, in moderate to severe distress secondary to pain HEAD: Normocephalic/atraumatic EYES: PERRLA, EOMI OROPHARYNX: no oral lesions noted, posterior pharynx clear NECK: Supple, no adenopathy LUNGS: Normal breath sounds. No adventitious sounds or accessory muscle use. SpO2<95> CARDIOVASCULAR: Regular rate and rhythm without noted murmurs ABDOMEN: Soft, tenderness on palpation, midline incision well approximated without erythema/induration/discharge, non-distended with hypoactive bowel sounds. SKIN: Inspection of the skin reveals no rashes NEUROLOGIC: Alert and oriented x 3. Psych--appripraite affect Const: Other: Constitutional: Alert, iin some distress Mental Status: Oriented to person, place and time. Eyes: Pupils are equal, round and reactive to light. Ear, Nose and Throat: Oropharynx clear, mucous membranes moist. Ears and nose without eformities. Trachea midline. Respiratory: Clear to auscultation. No wheezing, rales or rhonchi. Cardiovascular: S1 S2 regular. No murmurs, rubs or gallops. Gastrointestinal: Abdomen soft, mild tenderness, non-distended. hardly any bowel sounds, sugical wound and isaias still in place, no erythema around wound Neurologic: Cranial nerves II-XII grossly intact. No focal neurological deficits. Moves all extremities spontaneously.? Skin: No rashes or lesions.? Musculoskeletal: No cyanosis or clubbing. Psychiatric: Normal mood and affect? Results Labs CBC & Chem 7: 04/05/21 02:05 04/05/21 02:05 Labs: Short CBC 04/05/21 04/05/21 04/05/21 Range/Units 02:05 02:05 05:27 WBC 13.6 H (4.8-10.8) X10*3/uL Hgb 12.0 (12.0-16.0) g/dl Hct 34.9 L (37.0-47.0) % Plt Count 560 H D (160-400) X10*3/uL INR 1.6 H (0.9-1.1) AST 1035 H (5-31) U/L ALT 916 H (0-31) U/L BMP 04/05/21 02:05 Sodium 138 Potassium 3.2 L Chloride 98 Carbon Dioxide 22 BUN 14 D Creatinine 0.68 Calcium 9.3 Cardiac Enzymes 04/05/21 Range/Units 02:05 Total Creatine Kinase 61 (26-140) U/L Liver Function 04/05/21 04/05/21 Range/Units 02:05 08:17 Total Bilirubin 0.5 0.5 (0.0-1.0) mg/dL Direct Bilirubin 0.3 (0.0-0.5) mg/dL AST 1035 H 559 H (5-31) U/L ALT 916 H 717 H (0-31) U/L Alkaline Phosphatase 351 H D 279 H D (39-117) U/L Albumin 4.0 D 3.4 L (3.5-5.0) g/dL Urine 04/05/21 Range/Units 05:27 Urine Color YELLOW Urine Appearance CLEAR Urine pH 5.5 (5.0-8.0) Ur Specific [place] 1.015 (1.005-1.025) Urine Protein NEG (NEG-TRACE) MG/DL Urine Glucose (UA) NEG (NEG) MG/DL Assessment and Plan (1) Hepatotoxicity: Status: Acute (2) Unintentional Tylenol overdose: Status: Acute 1/ unintentional staggered tylenol over dosing, ddx; acute viral hepatitis, toxic. metabolic, ischemic hepatopathy, DILI from other medications, denies taking alcohol PLAN; 1/ complete NAC treatment 2/ trend INR, LFT, BMP q 12 hr 3/ if lft worsen, or INR keeps rising, renal failure, or confusion may need to transfer to tertiary center 4/ check viral hep serologies, hep a, b and c, LDH 5/ US liver if numbers don;t improve Procedures Date of Service Date of Service: 04/05/21
--- NOTE | 2021-04-05 12:10 | PC.NURSE ---
pt c/o increased pain. MD made aware. placed on bed pina to urinated and repositioned. When this RN went into pt's room, pump turned off. medication restarted at this time.
--- NOTE | 2021-04-05 14:24 | MHC.CM.PN ---
Met with pt to review d/c planning: Pt states she is tired and in pain and deferred me to her sister, Heaven at [phone]. Per Heaven, pt resides with her dtr in law and grand dtr (son passed 9 years ago) She is independent with all care needs, has no services or adaptive equipment and sees Dr. Awad. No HCP - Heaven states pt has declined in past. Heaven, pt has a hx of taking too much medications both rx and OTC. Heaven states pt claims to have pain control issues. Heaven can transport pt home: she will be staying with Heaven in the interim as her dtr in law is in [place] and pt will have no supports at home. CM to follow.
--- NOTE | 2021-04-05 15:07 | PC.NURSE ---
1 hour post 0.5mg dilaudid, pt stating that the medicine is wearing off too fast and she is in pain. Pt aware she has new orders for pain medication and has to try and wait. pt was calm and sleeping prior to being woken up by staff.
--- NOTE | 2021-04-05 15:08 | PHA.MEDREC ---
Pharmacy Consult ? Medication Reconciliation Pharmacy has completed the medication reconciliation. Shwtea DouglasD
[2021-04-05] MEDS: Melatonin 3 MG TABLET 6 MG PO (22:54)
--- NOTE | 2021-04-05 23:29 | P.PNGS_ITS ---
Subjective Subjective Date of Service: 04/05/21 Interval history: pt complaining of nausea and abdo pain. she was dc 3 days ago after sbr for sbo and was tolerating po diet and passing gas and stool. she was given a paper prescritpion for perocet by myself on dc - she says she did not get it filled because presprciption sent to [facility] that was closed. so pt took excessive tyleonol at home. pt was given a paper prescription on discharge for percocet to take to any pharmacy she wanted. ibuptfen eprescribed to [facility] . Physical Exam Vital Signs: Vital Signs: Last Vital Signs Temp 98.4 F 04/05/21 02:07 Pulse 84 04/05/21 22:51 Resp 18 04/05/21 22:53 BP 108/48 L 04/05/21 22:51 Pulse Ox 98 04/05/21 22:51 Body Mass Index 23.8 GI: Other: soft diffusely tneder little distended hypo bowel sounds incision looks good Objective Data Active Medications Hydromorphone HCl (Hydromorphone Hcl 0.5 Mg/0.5 Ml Syringe) 0.5 mg IVPUSH Q3H PRN; Protocol PRN Reason: Pain, Severe (Pain Scale 7-10) Last Admin: 04/05/21 22:53 Dose: 0.5 mg Documented by: IFEOMA Acetylcysteine 4,990 mg/ (Dextrose) 1,024.95 mls @ 62.5 mls/hr IV ONCE ONE Stop: 04/06/21 04:23 Last Admin: 04/05/21 16:05 Dose: 62.5 mls/hr Documented by: SAVANAH Dextrose/Sodium Chloride (D51/2ns) 1,000 mls @ 100 mls/hr IVCONT .Q10H NASH Last Admin: 04/05/21 21:10 Dose: 100 mls/hr Documented by: IFEOMA Melatonin (Melatonin 3 Mg Tablet) 6 mg PO BEDTIME PRN PRN Reason: Insomnia Last Admin: 04/05/21 22:54 Dose: 6 mg Documented by: IFEOMA Pharmacy Consult (Consult Rx Perform Med Rec) 1 each MISCELLANE ONCE PRN PRN Reason: Consult order Sodium Chloride (0.9 % Sodium Chloride Flush 3 Ml Syringe) 3 ml IVFLUSH QSHIFT [facility] Last Admin: 04/05/21 16:21 Dose: Not Given Documented by: CHUCK Non-Admin Reason: IV Running Labs CBC & Chem 7: 04/05/21 02:05 04/05/21 02:05 Labs: Laboratory Results - last 24 hr 04/05/21 04/05/21 04/05/21 02:05 02:05 03:17 MCV 93.8 MCH 32.3 MCHC 34.4 RDW 11.9 Plt Count 560 H D MPV 9.0 L Immature Gran % (Auto) 0.7 H Neut % (Auto) 74.4 H Lymph % (Auto) 12.1 L [place] % (Auto) 10.5 Eos % (Auto) 1.6 Baso % (Auto) 0.7 Lymph # (Auto) 1.6 [place] # (Auto) 1.4 H Eos # (Auto) 0.2 Baso # (Auto) 0.1 Abs Immat Gran (auto) 0.10 H Absolute Neuts (auto) 10.1 H Absolute Nucleated RBC 0.000 Nucleated RBC % (auto) 0.0 PT INR Anion Gap 21 H Estim Creat Clear Calc 64.3 Estimated GFR > 60 Random Glucose 128 H Lactic Acid 0.7 Calcium 9.3 Magnesium 1.6 Total Bilirubin 0.5 Direct Bilirubin AST 1035 H ALT 916 H Alkaline Phosphatase 351 H D Lactate Dehydrogenase Total Creatine Kinase 61 Total Protein 7.0 Albumin 4.0 D Lipase 26 Urine Color Urine Appearance Urine pH Ur Specific [place] Urine Protein Urine Glucose (UA) Urine Ketones Urine Blood Urine Nitrite Ur Leukocyte Esterase Acetaminophen 39 H COVID-19 (EVELYN) COVID-19 Clin Com 04/05/21 04/05/21 04/05/21 03:44 05:27 05:27 MCV MCH MCHC RDW Plt Count MPV Immature Gran % (Auto) Neut % (Auto) Lymph % (Auto) [place] % (Auto) Eos % (Auto) Baso % (Auto) Lymph # (Auto) [place] # (Auto) Eos # (Auto) Baso # (Auto) Abs Immat Gran (auto) Absolute Neuts (auto) Absolute Nucleated RBC Nucleated RBC % (auto) PT 18.2 H INR 1.6 H Anion Gap Estim Creat Clear Calc Estimated GFR Random Glucose Lactic Acid Calcium Magnesium Total Bilirubin Direct Bilirubin AST ALT Alkaline Phosphatase Lactate Dehydrogenase Total Creatine Kinase Total Protein Albumin Lipase Urine Color YELLOW Urine Appearance CLEAR Urine pH 5.5 Ur Specific [place] 1.015 Urine Protein NEG Urine Glucose (UA) NEG Urine Ketones 15 Urine Blood NEG Urine Nitrite NEG Ur Leukocyte Esterase NEG Acetaminophen COVID-19 (EVELYN) Negative COVID-19 Clin Com See Note 04/05/21 08:17 MCV MCH MCHC RDW Plt Count MPV Immature Gran % (Auto) Neut % (Auto) Lymph % (Auto) [place] % (Auto) Eos % (Auto) Baso % (Auto) Lymph # (Auto) [place] # (Auto) Eos # (Auto) Baso # (Auto) Abs Immat Gran (auto) Absolute Neuts (auto) Absolute Nucleated RBC Nucleated RBC % (auto) PT INR Anion Gap Estim Creat Clear Calc Estimated GFR Random Glucose Lactic Acid Calcium Magnesium Total Bilirubin 0.5 Direct Bilirubin 0.3 AST 559 H ALT 717 H Alkaline Phosphatase 279 H D Lactate Dehydrogenase 561 H Total Creatine Kinase Total Protein 5.9 L Albumin 3.4 L Lipase Urine Color Urine Appearance Urine pH Ur Specific [place] Urine Protein Urine Glucose (UA) Urine Ketones Urine Blood Urine Nitrite Ur Leukocyte Esterase Acetaminophen 6 COVID-19 (EVELYN) COVID-[address] scan - abdomen: Radiologist's impression: Impressions Abdomen/Pelvis CT 04/05/21 02:55 IMPRESSION: Fluid distention of several small bowel loops throughout the abdomen. Distalmost small bowel in the pelvis appears collapsed. Appearance could represent sequelae of a partial small bowel obstruction, though postoperative ileus would also be a consideration in the setting of recent surgery. If clinically warranted, a water-soluble fluoroscopic small bowel series may be helpful. Fleischner guidelines were followed. Procedures Date of Service Date of Service: 04/05/21 Progress Note: A&P Assessment and plan (1) Small bowel obstruction: Status: Acute Assessment and Plan: 56 keenan old female who was recently dc home after sbo requiring or and sbr and lysis of adhesions - had been doing well. - said she had no pain meds so took a lot of tylenol at home and now feeling sick and came to ER with [facility] prob secondary to tylenol OD. ct abdo showing distnded sb -?ileus vs obstruction i agree with plan for small bowel follow through study by fluroscopy - will discuss with surg team on tuesday to carry this out. med team to treat her tylenol OD Fall Risk Details Current Medications: Current Medications Hydromorphone HCl (Hydromorphone Hcl 0.5 Mg/0.5 Ml Syringe) 0.5 mg IVPUSH Q3H PRN; Protocol PRN Reason: Pain, Severe (Pain Scale 7-10) Last Admin: 04/05/21 22:53 Dose: 0.5 mg Documented by: Acetylcysteine 4,990 mg/ (Dextrose) 1,024.95 mls @ 62.5 mls/hr IV ONCE ONE Stop: 04/06/21 04:23 Last Admin: 04/05/21 16:05 Dose: 62.5 mls/hr Documented by: Dextrose/Sodium Chloride (D51/2ns) 1,000 mls @ 100 mls/hr IVCONT .Q10H NASH Last Admin: 04/05/21 21:10 Dose: 100 mls/hr Documented by: Melatonin (Melatonin 3 Mg Tablet) 6 mg PO BEDTIME PRN PRN Reason: Insomnia Last Admin: 04/05/21 22:54 Dose: 6 mg Documented by: Pharmacy Consult (Consult Rx Perform Med Rec) 1 each MISCELLANE ONCE PRN PRN Reason: Consult order Sodium Chloride (0.9 % Sodium Chloride Flush 3 Ml Syringe) 3 ml IVFLUSH QSHIFT [facility] Last Admin: 04/05/21 16:21 Dose: Not Given Documented by: Time Spent With Patient Time: Total time spent is greater than 50% in coordination of care (as docume nted) at patient's floor/unit and/or counseling patient: Time with patient: 25 - 35 minutes Quality Stroke Does the patient have a stroke diagnosis?: No VTE Prior VTE?: No VTE Risk Level:: Medical - moderate - high VTE Device Contraindication: N/A - Device Ordered VTE Drug Contraindication: Treatment Not Tolerated
[2021-04-06] VITALS (10 sets, daily range): BP systolic 102–130; BP diastolic 52–84; PULSE 70–123; RESP 16–20; TEMP 36.6–37.3; O2SAT 95–98
[2021-04-06] MEDS: 0.9 % Sodium Chloride Flush 3 ML SYRINGE IVFLUSH (00:10)
[2021-04-06] MEDS: HYDROmorphone HCl 0.5 MG/0.5 ML SYRINGE IVPUSH ×7 (01:49→20:47)
[2021-04-06 06:32] LABS: MANUAL DIFF FLAG NO
[2021-04-06 06:39] LABS: Basophils Absolute Auto 0.1 X10*3/uL (0.0-0.2); Basophils Percent Auto 0.9 % (0-2); Eosinophils Absolute Auto 0.7 X10*3/uL (0.0-0.4); Eosinophils Percent Auto 5.8 % (0-4); Hemoglobin 10.7 g/dl (12.0-16.0); Imm Gran Abs Auto 0.06 X10*3/uL (0.00-0.03); Imm Gran Pct Auto 0.5 % (0.0-0.4); Lymphocytes Absolute Auto 1.8 X10*3/uL (1.2-4.9); Lymphocytes Percent Auto 15.3 % (20-40); Mean Corpuscular HGB Conc 35.7 g/dl (31.0-35.0); Mean Corpuscular Hemoglobin 32.9 pg (27.0-33.0); Mean Corpuscular Volume 92.3 fL (80.0-98.0); Mean Platelet Volume 9.6 fL (9.4-12.3); Monocytes Percent Auto 8.5 % (2-11); Platelet Count 514 X10*3/uL (160-400); Red Blood Count 3.25 X10*6/uL (4.20-5.50); Red Cell Distribution Width 11.8 % (11.0-16.0); White Blood Count 11.6 X10*3/uL (4.8-10.8)
[2021-04-06 06:56] LABS: Anion Gap 11 (12-20); Blood Urea Nitrogen 4 mg/dL (9-16); Calcium 8.1 mg/dL (8.4-10.2); Carbon Dioxide 25 mmol/L (22-29); Chloride 104 mmol/L (96-108); Cholesterol 124 mg/dL; Estimated Glomerular Filt Rate > 60; Glucose Random 150 mg/dL (60-115); HDL Cholesterol 30 mg/dL; LDL Cholesterol Calculated 79 mg/dl; Potassium 3.3 mmol/L (3.3-5.1); Sodium 137 mmol/L (135-145); Triglycerides 79 mg/dL
[2021-04-06] MEDS: Dextrose 5 % and 0.45 % NaCl 1,000 ML 100 ML IVCONT ×2 (07:15→17:26)
[2021-04-06 07:37] LABS: Alanine Aminotransferase 550 U/L (0-31); Albumin Level 2.9 g/dL (3.5-5.0); Alkaline Phosphatase 232 U/L (39-117); Aspartate Amino Transferase 229 U/L (5-31); Bilirubin Direct 0.2 mg/dL (0.0-0.5); Bilirubin Total 0.3 mg/dL (0.0-1.0); Total Protein 5.2 g/dL (6.5-8.0)
--- NOTE | 2021-04-06 08:25 | PM.CNGS ---
History of Present Illness Consult details Consult date: 04/06/21 Narrative: 56-year-old female who is well known to me, admitted because of uncontrolled pain at home. She had undergone laparotomy and small-bowel resection x2 segments for obstruction last March 25 for multiple previous surgeries with adhesions. She was discharged from the hospital last April 02. However, she was unable to get her medications from the [facility] as this was closed over the weekend. She took a lot of Tylenol so at home and eventually was readmitted yesterday because of uncontrolled pain. She was noted to have elevated LFTs from hepatotoxicity from Tylenol. She states that she is flatus. She says she has had no problems with oral intake at home. She denies any nausea or vomiting. She had a CAT scan yesterday showing question of ileus versus partial small-bowel obstruction. Review of Systems Constitutional: Constitutional: Denies chills and Denies fever(s) Cardiovascular: Cardiovascular: Denies chest pain, Denies dyspnea and Denies dyspnea on exertion Respiratory: Respiratory: Denies cough, Denies dyspnea and Denies dyspnea on exertion Gastrointestinal: Gastrointestinal: Denies hematochezia and Denies change in bowel habits Genitourinary: Genitourinary: Denies hematuria Musculoskeletal: Musculoskeletal: Denies back pain and Denies limited range of motion Neurologic: Denies focal weakness and Denies convulsions Psychiatric: Psychiatric: Denies depression and Denies mood swings PMFSH Past Medical History Medical History Abdominal adhesions Abdominal pain Acid reflux Chronic constipation Colitis Fibromyalgia Lupus Migraines Moderate malnutrition Osteoarthritis Osteoporosis Pulmonary nodules Vitamin D deficiency Family History Family History Father Fibromyalgia Osteoporosis Mother Stroke Surgical History Surgical History H/O elbow surgery History of hysterectomy with oophorectomy History of removal of ovarian cyst Hx of appendectomy Hx of colonoscopy Hx of tonsillectomy Social History Social History Household Members: Family Housing: Apartment Do you presently have visiting nurse or other home services: No Alcohol intake: never Patient Tobacco Use Status: Current everyday Tobacco user Tobacco use type: Cigarette Cigarette Packs Per Day: 1 Cigarettes Per Day: 20.0 Years Smoked: 23 Second Hand Smoke Exposure: No service: No Current occupational status: disabled Meds Allergies Allergy/AdvReac Type Severity Reaction Status Date / Time tramadol [TRAMADOL] Allergy Unknown NAUSEA & Verified 12/29/20 13:04 VOMITING Active Medications: Current Medications Hydromorphone HCl (Hydromorphone Hcl 0.5 Mg/0.5 Ml Syringe) 0.5 mg IVPUSH Q3H PRN; Protocol PRN Reason: Pain, Severe (Pain Scale 7-10) Last Admin: 04/06/21 07:47 Dose: 0.5 mg Documented by: Dextrose/Sodium Chloride (D51/2ns) 1,000 mls @ 100 mls/hr IVCONT .Q10H [facility] Last Admin: 04/06/21 07:15 Dose: 100 mls/hr Documented by: Melatonin (Melatonin 3 Mg Tablet) 6 mg PO BEDTIME PRN PRN Reason: Insomnia Last Admin: 04/05/21 22:54 Dose: 6 mg Documented by: Pharmacy Consult (Consult Rx Perform Med Rec) 1 each MISCELLANE ONCE PRN PRN Reason: Consult order Sodium Chloride (0.9 % Sodium Chloride Flush 3 Ml Syringe) 3 ml IVFLUSH QSHIFT [facility] Last Admin: 04/06/21 07:16 Dose: Not Given Documented by: Home Medications Medication Instructions Recorded Confirmed Last Taken Type albuterol sulfate 90 mcg/actuation 2 puff INHALATION Q4-6H PRN 04/30/20 04/05/21 Unknown History aerosol inhaler (Ventolin HFA) amitriptyline 25 mg tablet 25 mg PO BEDTIME 04/30/20 04/05/21 Unknown History bupropion HCl 150 mg 24 hr tablet, 150 mg PO DAILY 04/30/20 04/05/21 Unknown History extended release (Wellbutrin XL) lidocaine 5 % topical patch 2 patch TOPICAL DAILY 04/30/20 04/05/21 Unknown History (Lidoderm) omeprazole 20 mg tablet,delayed 20 mg PO BID 04/30/20 04/05/21 07/14/20 07:40 History release 20 mg sennosides 8.6 mg tablet (senna) 17.2 mg PO BEDTIME PRN tab 04/30/20 04/05/21 Unknown History trazodone 50 mg tablet 1 tab PO BEDTIME 03/22/21 04/05/21 Unknown History Physical Exam Vital Signs: Vital Signs: Last Vital Signs Temp 98.1 F 04/06/21 07:16 Pulse 85 04/06/21 07:16 Resp 20 04/06/21 07:47 BP 126/60 04/06/21 07:16 Pulse Ox 97 04/06/21 07:16 Body Mass Index 23.8 Const: General: comfortable and no acute distress Orientation/consciousness: patient oriented x3 Neck: Neck: Yes no lymphadenopathy Resp: Auscultation: clear to auscultation bilaterally Cardio: Rhythm: regular rhythm GI: Other: Mildly distended but soft, tender along incision, Incision well healed, isaias intact, cellulitis, no hernia Palpation (GI): Soft to palpation and no guarding Neuro: General: patient oriented x3 Results Labs Result diagrams: 04/06/21 06:14 04/07/21 08:11 Labs: Abnormal lab results 04/05/21 04/06/21 04/06/21 Range/Units 08:17 06:14 06:14 WBC 11.6 H (4.8-10.8) X10*3/uL RBC 3.25 L (4.20-5.50) X10*6/uL Hgb 10.7 L (12.0-16.0) g/dl Hct 30.0 L (37.0-47.0) % MCHC 35.7 H (31.0-35.0) g/dl Plt Count 514 H (160-400) X10*3/uL Immature Gran % (Auto) 0.5 H (0.0-0.4) % Lymph % (Auto) 15.3 L (20-40) % Eos % (Auto) 5.8 H (0-4) % Eos # (Auto) 0.7 H (0.0-0.4) X10*3/uL Abs Immat Gran (auto) 0.06 H (0.00-0.03) X10*3/uL Anion Gap 11 L (12-20) BUN 4 L D (9-16) mg/dL Random Glucose 150 H (60-115) mg/dL Calcium 8.1 L D (8.4-10.2) mg/dL AST 559 H 229 H (5-31) U/L ALT 717 H 550 H (0-31) U/L Alkaline Phosphatase 279 H D 232 H (39-117) U/L Lactate Dehydrogenase 561 H (122-220) U/L Total Protein 5.9 L 5.2 L (6.5-8.0) g/dL Albumin 3.4 L 2.9 L (3.5-5.0) g/dL Short CBC 04/06/21 Range/Units 06:14 WBC 11.6 H (4.8-10.8) X10*3/uL Hgb 10.7 L (12.0-16.0) g/dl Hct 30.0 L (37.0-47.0) % Plt Count 514 H (160-400) X10*3/uL BMP 04/06/21 06:14 Sodium 137 Potassium 3.3 Chloride 104 Carbon Dioxide 25 BUN 4 L D Creatinine 0.54 Calcium 8.1 L D Liver Function 04/05/21 04/06/21 Range/Units 08:17 06:14 Total Bilirubin 0.5 0.3 (0.0-1.0) mg/dL Direct Bilirubin 0.3 0.2 (0.0-0.5) mg/dL AST 559 H 229 H (5-31) U/L ALT 717 H 550 H (0-31) U/L Alkaline Phosphatase 279 H D 232 H (39-117) U/L Albumin 3.4 L 2.9 L (3.5-5.0) g/dL Urine 04/05/21 Range/Units 05:27 Urine Color YELLOW Urine Appearance CLEAR Urine pH 5.5 (5.0-8.0) Ur Specific [facility] 1.015 (1.005-1.025) Urine Protein NEG (NEG-TRACE) MG/DL Urine Glucose (UA) NEG (NEG) MG/DL All other labs normal. Assessment and Plan (1) S/P exploratory laparotomy: Status: Acute She was readmitted today because of uncontrolled pain at home. She had been unable to get her pain medications because he health center was closed over the weekend so she had been taking a lot of Tylenol. She was therefore noted to have hepatic toxicity. LFTs are improving. She can have clear liquids and this can be slowly advance as tolerated. She has a benign exam otherwise. I have talked to her sister Seema who was concerned about her self-care at home. She plans on taking the patient with her at her house on discharge to have better care. I will follow along while she is in the hospital. Procedures Date of Service Date of Service: 04/06/21
[2021-04-06 09:05] LABS: HBc Num1 0.09 S/CO (0.00-0.79); Hepatitis B Core Antibody Nonreactive (Nonreactive); Hepatitis B Surface Antigen Negative (Negative)
--- NOTE | 2021-04-06 09:25 | HO.PM.IMPN ---
Subjective Subjective Date of Service: 04/06/21 Interval History: Seen in follow-up for hepatic toxicity due to unintentional Tylenol overdose, she recently had a small-bowel resection and was not able to get her narcotic at her local pharmacy. Her pain seemed to be better today, LFTs are going down. Review of Systems No nausea vomiting, still have some abdominal pain. No fever Physical Exam Vital Signs: Vital Signs: Last Vital Signs Temp 98.1 F 04/06/21 07:16 Pulse 85 04/06/21 07:16 Resp 20 04/06/21 07:47 BP 126/60 04/06/21 07:16 Pulse Ox 97 04/06/21 07:16 General: AO X 3, no acute distress Resp: CTA bilateral CVS: S1,S2,RRR GI: +BS, mild tenderness, no distention, isaias in place Skin: No rash Neuro: motor grossly intact Psych: appropriate affec Objective Data Active Medications Hydromorphone HCl (Hydromorphone Hcl 0.5 Mg/0.5 Ml Syringe) 0.5 mg IVPUSH Q3H PRN; Protocol PRN Reason: Pain, Severe (Pain Scale 7-10) Last Admin: 04/06/21 07:47 Dose: 0.5 mg Documented by: KATELYN Dextrose/Sodium Chloride (D51/2ns) 1,000 mls @ 100 mls/hr IVCONT .Q10H [facility] Last Admin: 04/06/21 07:15 Dose: 100 mls/hr Documented by: KATELYN Melatonin (Melatonin 3 Mg Tablet) 6 mg PO BEDTIME PRN PRN Reason: Insomnia Last Admin: 04/05/21 22:54 Dose: 6 mg Documented by: IFEOMA Pharmacy Consult (Consult Rx Perform Med Rec) 1 each MISCELLANE ONCE PRN PRN Reason: Consult order Sodium Chloride (0.9 % Sodium Chloride Flush 3 Ml Syringe) 3 ml IVFLUSH QSHIFT [facility] Last Admin: 04/06/21 07:16 Dose: Not Given Documented by: KATELYN Non-Admin Reason: IV Running Labs CBC & Chem 7: 04/06/21 06:14 04/06/21 06:14 Labs: Laboratory Results - last 24 hr 04/05/21 04/06/21 04/06/21 08:17 06:14 06:14 MCV 92.3 MCH 32.9 MCHC 35.7 H RDW 11.8 Plt Count 514 H MPV 9.6 Immature Gran % (Auto) 0.5 H Neut % (Auto) 69.0 Lymph % (Auto) 15.3 L [place] % (Auto) 8.5 Eos % (Auto) 5.8 H Baso % (Auto) 0.9 Lymph # (Auto) 1.8 [place] # (Auto) 1.0 Eos # (Auto) 0.7 H Baso # (Auto) 0.1 Abs Immat Gran (auto) 0.06 H Absolute Neuts (auto) 8.0 Absolute Nucleated RBC 0.000 Nucleated RBC % (auto) 0.0 Anion Gap 11 L Estim Creat Clear Calc 81.0 Estimated GFR > 60 Random Glucose 150 H Calcium 8.1 L D Total Bilirubin 0.5 0.3 Direct Bilirubin 0.3 0.2 AST 559 H 229 H ALT 717 H 550 H Alkaline Phosphatase 279 H D 232 H Total Protein 5.9 L 5.2 L Albumin 3.4 L 2.9 L Triglycerides 79 Cholesterol 124 LDL Cholesterol, Calc 79 HDL Cholesterol 30 Microbiology Microbiology Results: Microbiology 04/05/21 03:17 Blood Culture - Preliminary Blood - Venous No growth after 24 hours. 04/05/21 03:17 Blood Culture - Preliminary Blood - Venous No growth after 24 hours. Assessment and Plan (1) Unintentional Tylenol overdose: Status: Acute (2) Hepatotoxicity: Status: Acute Assessment and Plan: ?56 year old female with history of lupus, fibromyalgia, non-specific colitis who was? admitted to surgery on 03/22/21 and discharged on 04/02/21 with? diagnosis of? SBO? and s/p ex lap, extensive lysis of adhesion and small bowel resection x2. Patient reports that since going home she had been taking tyelenol for pain as she was not able to get Narcotics from the health Center which is closed on holidays and weekend. She is found to have elevated LFTs with? AST 1035, ALT 916, alk-phos 351, and elevated Tyelenol and thus likely acetaminophen induced hepatotoxicity. 1. Unintentional Tylenol toxicity, hepatic toxicity. -she has completed Mucomyst protocol -avoid Tylenol -repeat LFTs are trending down, recheck INR -GI following 2. Small-bowel obstruction versus ileus in the setting of recent small bowel repair -management per Dr. Benites, advance diet, dilaudid for pain Will check with GI when she maybe able to go home from elevated LFTs perspective Quality Stroke Does the patient have a stroke diagnosis?: No VTE Prior VTE?: No VTE Risk Level:: Medical - moderate - high VTE Device Contraindication: Treatment Not Tolerated VTE Drug Contraindication: N/A - Med Ordered
[2021-04-06 09:47] LABS: HBS Num1 1.71 mIU/mL (0-7.99); ~HepC Num1 0.26 S/CO (0.00-0.79); ~Hepatitis B Surface Antibody NONREACTIVE (Nonreactive); ~Hepatitis C Antibody Nonreactive (Nonreactive)
[2021-04-06 10:15] LABS: INTERNATIONAL NORM RATIO 1.6 (0.9-1.1)
--- NOTE | 2021-04-06 17:17 | PC.NURSE ---
patient rings call white every three hours when pain med is due. patient has been encouraged by RN to ambulate at least once around ED. patient has only ambulated to bathroom twice through out shift. after pain med is given patient goes to sleep. vitals have been stable through out the day.
[2021-04-06] MEDS: Melatonin 3 MG TABLET 6 MG PO (20:49)
[2021-04-07] VITALS (10 sets, daily range): BP systolic 103–141; BP diastolic 55–71; PULSE 65–80; RESP 15–20; TEMP 36.6–37.1; O2SAT 97–99; BMI 19.5
[2021-04-07] MEDS: HYDROmorphone HCl 0.5 MG/0.5 ML SYRINGE IVPUSH ×8 (00:03→22:26)
[2021-04-07] MEDS: 0.9 % Sodium Chloride Flush 3 ML SYRINGE IVFLUSH (00:03)
[2021-04-07] MEDS: Dextrose 5 % and 0.45 % NaCl 1,000 ML 100 ML IVCONT ×3 (03:59→21:21)
[2021-04-07 08:43] LABS: INTERNATIONAL NORM RATIO 1.3 (0.9-1.1); Prothrombin Time 14.6 SEC (9.9-13.0)
[2021-04-07 09:16] LABS: Alanine Aminotransferase 433 U/L (0-31); Albumin Level 2.8 g/dL (3.5-5.0); Alkaline Phosphatase 186 U/L (39-117); Anion Gap 9 (12-20); Aspartate Amino Transferase 155 U/L (5-31); Bilirubin Direct 0.2 mg/dL (0.0-0.5); Bilirubin Total 0.4 mg/dL (0.0-1.0); Blood Urea Nitrogen 3 mg/dL (9-16); Calcium 8.3 mg/dL (8.4-10.2); Carbon Dioxide 26 mmol/L (22-29); Chloride 106 mmol/L (96-108); Creatinine Clr Calc Pharmacy 84.2; Estimated Glomerular Filt Rate > 60; Glucose Random 117 mg/dL (60-115); Potassium 3.4 mmol/L (3.3-5.1); Sodium 138 mmol/L (135-145); Total Protein 4.8 g/dL (6.5-8.0)
--- NOTE | 2021-04-07 13:36 | MHC.CLN ---
PT IS MODERATELY MALNOURISHED PT HAS MILD MUSCLE WASTING, MILD SUBCUTANEOUS FAT DEPLETION, AND A BMI OF 19.5 PT WAS MODERATELY MALNOURISHED IN RECENT PREVIOUS ADMISSION (D/C ON 04/02, RE ADMITTED 04/05) PT IS CURRENTLY DAY 2 NPO RECOMMEND ENSURE PLUS SUPPLEMENT BID WHEN DIET ADVANCES SUPPLEMENT PROVIDES 700 KCALS AND 32 GRAMS PROTEIN MONITOR PO INTAKE CLOSELY AND SUPPLEMENT ACCEPTANCE ONCE DIET ADVANCES SEE ALSO CLINICAL NUTRITION ASSESSMENT
--- NOTE | 2021-04-07 13:59 | PM.PNGS ---
Subjective Subjective Date of Service: 04/07/21 Interval history: Still asking for IV pain meds frequently However, she also says she hungry wants to eat Has been ambulating No vomiting reported Says she is passing flatus Physical Exam Vital Signs: Vital Signs: Last Vital Signs Temp 98.2 F 04/07/21 11:34 Pulse 79 04/07/21 11:34 Resp 16 04/07/21 11:34 BP 110/63 04/07/21 11:34 Pulse Ox 97 04/07/21 11:34 Body Mass Index 19.5 Const: General: comfortable and no acute distress Resp: Effort & Inspection: normal respiratory effort Cardio: Rate: regular rate GI: Other: Incision clean, healing well Palpation (GI): Soft to palpation, not firm, Tenderness to palpation present (GI) (Mild diffuse tenderness), no guarding and not rigid Objective Data Active Medications Hydromorphone HCl (Hydromorphone Hcl 0.5 Mg/0.5 Ml Syringe) 0.5 mg IVPUSH Q3H PRN; Protocol PRN Reason: Pain, Severe (Pain Scale 7-10) Last Admin: 04/07/21 12:23 Dose: 0.5 mg Documented by: MIO Dextrose/Sodium Chloride (D51/2ns) 1,000 mls @ 100 mls/hr IVCONT .Q10H ON LICENSE OF [facility] Last Admin: 04/07/21 12:25 Dose: 100 mls/hr Documented by: MIO Melatonin (Melatonin 3 Mg Tablet) 6 mg PO BEDTIME PRN PRN Reason: Insomnia Last Admin: 04/06/21 20:49 Dose: 6 mg Documented by: HARRIETT Pharmacy Consult (Consult Rx Perform Med Rec) 1 each MISCELLANE ONCE PRN PRN Reason: Consult order Sodium Chloride (0.9 % Sodium Chloride Flush 3 Ml Syringe) 3 ml IVFLUSH QSHIFT ON LICENSE OF [facility] Last Admin: 04/07/21 09:14 Dose: Not Given Documented by: MIO Non-Admin Reason: IV Running Labs CBC & Chem 7: 04/06/21 06:14 04/07/21 08:11 Labs: Laboratory Results - last 24 hr 04/07/21 04/07/21 08:11 08:11 PT 14.6 H INR 1.3 H Anion Gap 9 L Estim Creat Clear Calc 84.2 Estimated GFR > 60 Random Glucose 117 H Calcium 8.3 L Total Bilirubin 0.4 Direct Bilirubin 0.2 AST 155 H ALT 433 H Alkaline Phosphatase 186 H Total Protein 4.8 L Albumin 2.8 L Microbiology Microbiology Results: Microbiology 04/05/21 03:17 Blood Culture - Preliminary Blood - Venous No growth after 48 hours. 04/05/21 03:17 Blood Culture - Preliminary Blood - Venous No growth after 48 hours. Procedures Date of Service Date of Service: 04/07/21 Progress Note: A&P Assessment and plan (1) Abdominal pain: Status: Acute Assessment and Plan: She is status post laparotomy, small-bowel resection from 2 weeks ago Clinically looks well although she still as for IV pain meds frequently Abdomen benign She says she is passing flatus and wants to use Clear liquids, advance as tolerated Continue to ambulate LFTs improving well Will continue to follow Pain management Fall Risk Details Current Medications: Current Medications Hydromorphone HCl (Hydromorphone Hcl 0.5 Mg/0.5 Ml Syringe) 0.5 mg IVPUSH Q3H PRN; Protocol PRN Reason: Pain, Severe (Pain Scale 7-10) Last Admin: 04/07/21 12:23 Dose: 0.5 mg Documented by: Dextrose/Sodium Chloride (D51/2ns) 1,000 mls @ 100 mls/hr IVCONT .Q10H ON [facility] OF [facility] Last Admin: 04/07/21 12:25 Dose: 100 mls/hr Documented by: Melatonin (Melatonin 3 Mg Tablet) 6 mg PO BEDTIME PRN PRN Reason: Insomnia Last Admin: 04/06/21 20:49 Dose: 6 mg Documented by: Pharmacy Consult (Consult Rx Perform Med Rec) 1 each MISCELLANE ONCE PRN PRN Reason: Consult order Sodium Chloride (0.9 % Sodium Chloride Flush 3 Ml Syringe) 3 ml IVFLUSH QSHIFT ON LICENSE OF [facility] Last Admin: 04/07/21 09:14 Dose: Not Given Documented by: Time Spent With Patient Time: Total time spent is greater than 50% in coordination of care (as documented) at patient's floor/unit and/or counseling patient: Time with patient: 15 - 24 minutes Quality Stroke Does the patient have a stroke diagnosis?: No VTE Prior VTE?: No VTE Risk Level:: Medical - moderate - high VTE Device Contraindication: Treatment Not Tolerated VTE Drug Contraindication: N/A - Med Ordered
--- NOTE | 2021-04-07 15:56 | HO.PM.IMPN ---
Subjective Subjective Date of Service: 04/07/21 Interval History: Tylenol toxicity, recent bowel resection. Review of Systems Patient still has abdominal pain, passing gases says no BM yet. Denies any nausea vomiting or fever or chills or cough or phlegm. Physical Exam Vital Signs: Vital Signs: Last Vital Signs Temp 98.7 F 04/07/21 15:07 Pulse 80 04/07/21 15:07 Resp 16 04/07/21 15:07 BP 128/58 L 04/07/21 15:07 Pulse Ox 99 04/07/21 15:07 Body Mass Index 19.5 General: AO X 3, no acute distress Resp:? CTA bilateral CVS: S1,S2,RRR GI: +BS, mild tenderness, no distention, isaias in place Skin: No rash Neuro:? motor grossly intact Psych: appropriate affec Objective Data Active Medications Hydromorphone HCl (Hydromorphone Hcl 0.5 Mg/0.5 Ml Syringe) 0.5 mg IVPUSH Q3H PRN; Protocol PRN Reason: Pain, Severe (Pain Scale 7-10) Last Admin: 04/07/21 15:41 Dose: 0.5 mg Documented by: HARRIETT Dextrose/Sodium Chloride (D51/2ns) 1,000 mls @ 100 mls/hr IVCONT .Q10H [facility] Last Admin: 04/07/21 12:25 Dose: 100 mls/hr Documented by: MIO Melatonin (Melatonin 3 Mg Tablet) 6 mg PO BEDTIME PRN PRN Reason: Insomnia Last Admin: 04/06/21 20:49 Dose: 6 mg Documented by: HARRIETT Pharmacy Consult (Consult Rx Perform Med Rec) 1 each MISCELLANE ONCE PRN PRN Reason: Consult order Sodium Chloride (0.9 % Sodium Chloride Flush 3 Ml Syringe) 3 ml IVFLUSH QSHIFT [facility] Last Admin: 04/07/21 09:14 Dose: Not Given Documented by: MIO Non-Admin Reason: IV Running Labs CBC & Chem 7: 04/06/21 06:14 04/07/21 08:11 Labs: Laboratory Results - last 24 hr 04/07/21 04/07/21 08:11 08:11 PT 14.6 H INR 1.3 H Anion Gap 9 L Estim Creat Clear Calc 84.2 Estimated GFR > 60 Random Glucose 117 H Calcium 8.3 L Total Bilirubin 0.4 Direct Bilirubin 0.2 AST 155 H ALT 433 H Alkaline Phosphatase 186 H Total Protein 4.8 L Albumin 2.8 L Microbiology Microbiology Results: Microbiology 04/05/21 03:17 Blood Culture - Preliminary Blood - Venous No growth after 48 hours. 04/05/21 03:17 Blood Culture - Preliminary Blood - Venous No growth after 48 hours. Assessment and Plan (1) Unintentional Tylenol overdose: Status: Acute (2) Hepatotoxicity: Status: Acute (3) Abdominal pain: Status: Acute Assessment and Plan: 56 year old female with history of lupus, fibromyalgia, non-specific colitis who was? admitted to surgery on 03/22/21 and discharged on 04/02/21 with? diagnosis of? SBO? and s/p ex lap, extensive lysis of adhesion and small bowel resection x2. Patient reports that since going home she had been taking tyelenol for pain as she was not able to get Narcotics from the [facility] which is closed on holidays and weekend. She is found to have elevated LFTs with? AST 1035, ALT 916, alk-phos 351, and elevated Tyelenol and thus likely acetaminophen induced hepatotoxicity. 1. Unintentional Tylenol toxicity, hepatic toxicity. -she has completed Mucomyst protocol -avoid Tylenol -repeat LFTs , inr are trending down -GI following 2. Small-bowel obstruction versus ileus in the setting of recent small bowel repair -management per Dr. Benites, clear liquid diet, dilaudid for pain Will check with GI when she maybe able to go home from elevated LFTs perspective Quality Stroke Does the patient have a stroke diagnosis?: No VTE Prior VTE?: No VTE Risk Level:: Medical - moderate - high VTE Device Contraindication: Treatment Not Tolerated VTE Drug Contraindication: N/A - Med Ordered
[2021-04-07] MEDS: Melatonin 3 MG TABLET 6 MG PO (22:26)
[2021-04-08] VITALS: BP 103/54; PULSE 71; RESP 16; TEMP 36.3; O2SAT 96
[2021-04-08] MEDS: HYDROmorphone HCl 0.5 MG/0.5 ML SYRINGE IVPUSH ×4 (01:27→12:09)
[2021-04-08] MEDS: HYDROmorphone HCl 1 MG/ML SYRINGE IVPUSH (02:29)
--- NOTE | 2021-04-08 02:33 | MHC.PIE ---
p; pt in pain. 12/16. prn dilaudid 0.5 mg iv given with no effect. i; dr griggs notified; new order dilaudid 1 mg iv now e; pt in bed crying visibally in pain. c/o pain 02/15. stat dose dilaudid given. will cont to monitor
[2021-04-08 03:27] VITALS: BP 98/53; PULSE 70; RESP 18; TEMP 36.9; O2SAT 97
[2021-04-08] MEDS: Dextrose 5 % and 0.45 % NaCl 1,000 ML 100 ML IVCONT (05:41)
[2021-04-08 07:30] VITALS: BP 117/55; PULSE 78; RESP 16; TEMP 36.5; O2SAT 99
--- NOTE | 2021-04-08 07:41 | P.PNIM_ITS ---
Subjective Subjective Date of Service: 04/08/21 Interval History: abd pain Review of Systems still has abd pain Physical Exam Vital Signs: Vital Signs: Last Vital Signs Temp 97.7 F 04/08/21 07:30 Pulse 78 04/08/21 07:30 Resp 16 04/08/21 07:30 BP 117/55 L 04/08/21 07:30 Pulse Ox 99 04/08/21 07:30 Body Mass Index 19.5 General: AO X 3, no acute distress Resp:? CTA bilateral CVS: S1,S2,RRR GI: +BS, mild tenderness, no distention, isaias in place Skin: No rash Neuro:? motor grossly intact Psych: appropriate affect Objective Data Active Medications Albuterol Sulfate (Albuterol Sulfate 90 Mcg 8 Gm Inhaler) 2 puff INHALE Q4H PRN PRN Reason: Shortness Of Breath Hydromorphone HCl (Hydromorphone Hcl 0.5 Mg/0.5 Ml Syringe) 0.5 mg IVPUSH Q3H PRN; Protocol PRN Reason: Pain, Severe (Pain Scale 7-10) Last Admin: 04/08/21 05:41 Dose: 0.5 mg Documented by: ESTHELA Dextrose/Sodium Chloride (D51/2ns) 1,000 mls @ 100 mls/hr IVCONT .Q10H [facility] Last Admin: 04/08/21 05:41 Dose: 100 mls/hr Documented by: ESTHELA Melatonin (Melatonin 3 Mg Tablet) 6 mg PO BEDTIME PRN PRN Reason: Insomnia Last Admin: 04/07/21 22:26 Dose: 6 mg Documented by: ESTHELA Omeprazole (Omeprazole 20 Mg Capsule.Dr) 20 mg PO BID [facility] Pharmacy Consult (Consult Rx Perform Med Rec) 1 each MISCELLANE ONCE PRN PRN Reason: Consult order Sodium Chloride (0.9 % Sodium Chloride Flush 3 Ml Syringe) 3 ml IVFLUSH QSHIFT [facility] Last Admin: 04/08/21 07:23 Dose: Not Given Documented by: ERIC Non-Admin Reason: IV Running Labs CBC & Chem 7: 04/06/21 06:14 04/07/21 08:11 Labs: Laboratory Results - last 24 hr 04/07/21 04/07/21 08:11 08:11 PT 14.6 H INR 1.3 H Anion Gap 9 L Estim Creat Clear Calc 84.2 Estimated GFR > 60 Random Glucose 117 H Calcium 8.3 L Total Bilirubin 0.4 Direct Bilirubin 0.2 AST 155 H ALT 433 H Alkaline Phosphatase 186 H Total Protein 4.8 L Albumin 2.8 L Microbiology Microbiology Results: Microbiology 04/05/21 03:17 Blood Culture - Preliminary Blood - Venous No growth after 48 hours. 04/05/21 03:17 Blood Culture - Preliminary Blood - Venous No growth after 48 hours. Assessment and Plan Assessment and Plan: 56 year old female with history of lupus, fibromyalgia, non-specific colitis who was? admitted to surgery on 03/22/21 and discharged on 04/02/21 with? diagnosis of? SBO? and s/p ex lap, extensive lysis of adhesion and small bowel resection x2. Patient reports that since going home she had been taking tyelenol for pain as she was not able to get Narcotics from the [facility] which is closed on holidays and weekend. She is found to have elevated LFTs with? AST 1035, ALT 91 6, alk-phos 351, and elevated Tyelenol and thus likely acetaminophen induced hepatotoxicity. 1. Unintentional Tylenol toxicity, hepatic toxicity. -she has completed Mucomyst protocol -avoid Tylenol -repeat LFTs , inr are trending down -GI following 2. Small-bowel obstruction versus ileus in the setting of recent small bowel repair -management per Dr. Benites, clear liquid diet, dilaudid for pain Will check with GI when she maybe able to go home from elevated LFTs perspective Quality Stroke Does the patient have a stroke diagnosis?: No VTE Prior VTE?: No VTE Risk Level:: Medical - moderate - high VTE Device Contraindication: Treatment Not Tolerated VTE Drug Contraindication: N/A - Med Ordered
[2021-04-08] MEDS: Omeprazole 20 MG CAPSULE.DR PO (08:55)
[2021-04-08 09:13] LABS: Hepatitis A Antibody IgM 0.24 Index (0-0.79); ~Hepatitis A Antibody IgM Nonreactive (Nonreactive)
--- NOTE | 2021-04-08 10:10 | MHC.CM.PN ---
EMR REVIEWED, PT W/SBO VS P/O ILEUS REMAINS ON CLER LIQUID, IV PAIN MEDS AND ASKS FREQUENTLY, AND IV FLUIDS, LFT'S TRENDING DOWN, NO PLAN FOR D/C TODAY, CM WILL CONT TO FOLLOW D/C NEEDS.
[2021-04-08 11:48] VITALS: BP 122/58; PULSE 82; RESP 18; TEMP 36.8; O2SAT 96
--- NOTE | 2021-04-08 11:55 | MHC.CLN ---
F/U DIET ADVANCED BY MD TO REGULAR, LOW RESIDUE/SOFT. ADDING ENSURE BID TO PROVIDE 700 KCAL, 26 G PROTEIN, PATIENT WITH DX MODERATE MALNUTRITION.
[2021-04-08 12:09] VITALS: RESP 17
--- NOTE | 2021-04-08 12:13 | P.PNGS_ITS ---
Subjective Subjective Date of Service: 04/08/21 Interval history: Has frequent complaints of pain and ask for pain meds IV Otherwise tolerating diet Passing flatus Clinically looks well Physical Exam Vital Signs: Vital Signs: Last Vital Signs Temp 98.2 F 04/08/21 11:48 Pulse 82 04/08/21 11:48 Resp 17 04/08/21 12:09 BP 122/58 L 04/08/21 11:48 Pulse Ox 96 04/08/21 11:48 BMI result Body Mass Index 19.5 Const: General: comfortable and no acute distress Resp: Effort & Inspection: normal respiratory effort Cardio: Rate: regular rate GI: Other: Incision clean and dry Palpation (GI): Soft to palpation, not firm and no guarding Objective Data Active Medications Albuterol Sulfate (Albuterol Sulfate 90 Mcg 8 Gm Inhaler) 2 puff INHALE Q4H PRN PRN Reason: Shortness Of Breath Hydromorphone HCl (Hydromorphone Hcl 0.5 Mg/0.5 Ml Syringe) 0.5 mg IVPUSH Q3H PRN; Protocol PRN Reason: Pain, Severe (Pain Scale 7-10) Last Admin: 04/08/21 12:09 Dose: 0.5 mg Documented by: FRANNIE Melatonin (Melatonin 3 Mg Tablet) 6 mg PO BEDTIME PRN PRN Reason: Insomnia Last Admin: 04/07/21 22:26 Dose: 6 mg Documented by: ESTHELA Omeprazole (Omeprazole 20 Mg Capsule.Dr) 20 mg PO BID [facility] Last Admin: 04/08/21 08:55 Dose: 20 mg Documented by: ERIC Pharmacy Consult (Consult Rx Perform Med Rec) 1 each MISCELLANE ONCE PRN PRN Reason: Consult order Sodium Chloride (0.9 % Sodium Chloride Flush 3 Ml Syringe) 3 ml IVFLUSH QSHIFT [facility] Last Admin: 04/08/21 07:23 Dose: Not Given Documented by: ERIC Non-Admin Reason: IV Running Labs CBC & Chem 7: 04/06/21 06:14 04/07/21 08:11 Labs: Laboratory Results - last 24 hr 04/05/21 02:05 Hepatitis A IgM Ab Nonreactive Procedures Date of Service Date of Service: 04/08/21 Progress Note: A&P Assessment and plan (1) S/P exploratory laparotomy: Status: Acute Assessment and Plan: Has pain issues Otherwise seems to be likely well Tolerating diet Has flatus Abdomen always soft and benign Diet as tolerated I told her that if she is tolerating diet well good bowel movements, she may be able to go home with pain meds Fall Risk Details Current Medications: Current Medications Albuterol Sulfate (Albuterol Sulfate 90 Mcg 8 Gm Inhaler) 2 puff INHALE Q4H PRN PRN Reason: Shortness Of Breath Hydromorphone HCl (Hydromorphone Hcl 0.5 Mg/0.5 Ml Syringe) 0.5 mg IVPUSH Q3H PRN; Protocol PRN Reason: Pain, Severe (Pain Scale 7-10) Last Admin: 04/08/21 12:09 Dose: 0.5 mg Documented by: Melatonin (Melatonin 3 Mg Tablet) 6 mg PO BEDTIME PRN PRN Reason: Insomnia Last Admin: 04/07/21 22:26 Dose: 6 mg Documented by: Omeprazole (Omeprazole 20 Mg Capsule.Dr) 20 mg PO BID [facility] Last Admin: 04/08/21 08:55 Dose: 20 mg Documented by: Pharmacy Consult (Consult Rx Perform Med Rec) 1 each MISCELLANE ONCE PRN PRN Reason: Consult order Sodium Chloride (0.9 % Sodium Chloride Flush 3 Ml Syringe) [facility] Last Admin: 04/08/21 07:23 Dose: Not Given Documented by: Time Spent With Patient Time: Total time spent is greater than 50% in coordination of care (as documented) at patient's floor/unit and/or counseling patient: Time with patient: 15 - 24 minutes Quality Stroke Does the patient have a stroke diagnosis?: No VTE Prior VTE?: No VTE Risk Level:: Medical - moderate - high VTE Device Contraindication: Treatment Not Tolerated VTE Drug Contraindication: N/A - Med Ordered
[2021-04-08] MEDS: oxyCODONE HCl Immed Release 5 MG TABLET PO (15:50)
--- NOTE | 2021-04-08 16:31 | MHC.CM.PN ---
PT DISCHARGING HOME SELF-CARE AND WILL ARRANGE TRANSPORT
--- NOTE | 2021-04-08 16:33 | PM.DS ---
DS: Providers Provider Date of Service: 04/08/21 Date of admission: 04/05/21 09:02 Primary care physician: Unknown Physician Admitting clinician: Charlie Leonardo Consults: 04/05/21 09:04 Consult to General Surgery Routine Consulting Provider: Torey Benites Reason for consultation: sbo Has provider been notified: No 04/05/21 09:05 Consult to Gastroenterology Routine Consulting Provider: Lilo Parr Reason for consultation: Hepatic toxicity due to Tylenol overdose DS: Diagnosis Discharge Diagnosis (1) S/P exploratory laparotomy: Status: Acute DS: Summary Hospital Course Hospital Course: 56 year old female with history of lupus, fibromyalgia, non-specific colitis who was? admitted to surgery on 03/22/21 and discharged on 04/02/21 with? diagnosis of? SBO? and s/p ex lap, extensive lysis of adhesion and small bowel resection x2. Patient reports that since going home she had been taking tyelenol for pain as she was not able to get Narcotics from the [facility] which is closed on holidays and weekend. She is found to have elevated LFTs with? AST 1035, ALT 916, alk-phos 351, initial Tylenol level was 39 and repeat now 6, she is initiated on a Mucomyst.? CT scan of the abdomen suggests ileus versus small-bowel obstruction.? She has complained of significant abdominal pain, no fever, there is mild increase in WBC of 13. hospital course: Patient came with Tylenol overdose: Started on Mucomyst- completed protocol, LFTs improving- follow-up LFTs outpatient PCP in 1 week and further management as per PCP. avoid Tylenol and NSAID and other hepatotoxic medications. also had a question of small-bowel obstruction vs ileus: improved with hydration , bowel rest- tolerating diet, producing bowels- discussed with the surgery patient will go home with p.o. oxycodone. Further management outpatient as per PCP. Above management discussed with the patient an dher family in detail length she understand and in agreement with the above plan, time spent 50 minutes and 50% time spent on counseling. Significant findings: As above. Procedures performed: None. Treatment and response: As above. Complications: None. Time Spent with Patient Time attestation: Total time spent providing and/or coordinating discharge services: Discharge coordination time: Greater than 30 minutes Quality: Stroke Does the patient have a stroke diagnosis?: No Physical Exam Vital Signs: Vital Signs: Last Vital Signs Temp 98.2 F 04/08/21 11:48 Pulse 82 04/08/21 11:48 Resp 17 04/08/21 12:09 BP 122/58 L 04/08/21 11:48 Pulse Ox 96 04/08/21 11:48 BMI result Body Mass Index 19.5 General: AO X 3, no acute distress Resp:? CTA bilateral CVS: S1,S2,RRR GI: +BS, mild tenderness, no distention, isaias in place Skin: No rash Neuro:? motor grossly intact Psych: appropriate affec DS: Data Data Completed and Pending Labs on day of discharge: Laboratory Results - last 24 hr 04/05/21 02:05 Hepatitis A IgM Ab Nonreactive Preliminary micro results at discharge 04/05/21 03:17 Blood Culture - Preliminary Blood - Venous No growth after 48 hours. 04/05/21 03:17 Blood Culture - Preliminary Blood - Venous No growth after 48 hours. Additional Comments Additional comments: Labs: Laboratory Results - last 24 hr ? 04/07/21 04/07/21 ? 08:11 08:11 PT ? ?14.6 H INR ? ?1.3 H Anion Gap ?9 L ? Estim Creat Clear Calc ?84.2 ? Estimated GFR ?> 60 ? Random Glucose ?117 H ? Calcium ?8.3 L ? Total Bilirubin ?0.4 ? Direct Bilirubin ?0.2 ? AST ?155 H ? ALT ?433 H ? Alkaline Phosphatase ?186 H ? Total Protein ?4.8 L ? Albumin ?2.8 L ? Microbiology Microbiology Results: Microbiology ?04/05/21 03:17 Blood Culture - Preliminary ?Blood - Venous ?? No growth after 48 hours. ?04/05/21 03:17 Blood Culture - Preliminary ?Blood - Venous ?? No growth after [address] abd: IMPRESSION: Fluid distention of several small bowel loops throughout the abdomen. Distalmost small bowel in the pelvis appears collapsed. Appearance could represent sequelae of a partial small bowel obstruction, though postoperative ileus would also be a consideration in the setting of recent surgery. If clinically warranted, a water-soluble fluoroscopic small bowel series may be helpful. ? Fleischner guidelines were followed. Discharge Plan Discharge Patient Disposition: Home, Self-Care Discharge Diagnosis: tylenol toxicity Referrals: Physician,Unknown J [Primary Care Provider] - 1 Week Discharge Medications: New oxycodone 5 mg capsule 5 mg PO BID PRN (Reason: pain) Qty: 7 RF: 0 Continued trazodone 50 mg tablet 1 tab PO BEDTIME RF: 0 oxycodone 5 mg tablet 5 mg PO Q6H PRN (Reason: pain) Qty: 10 RF: 0 docusate sodium [Colace] 100 mg capsule 200 mg PO BEDTIME Qty: 60 RF: 5 amitriptyline 25 mg tablet 25 mg PO BEDTIME RF: 0 lidocaine [Lidoderm] 5 % adhesive patch,medicated 2 patch topical DAILY RF: 0 sennosides [senna] 8.6 mg tablet 17.2 mg PO BEDTIME PRN (Reason: Constipation) RF: 0 bupropion HCl [Wellbutrin XL] 150 mg tablet extended release 24 hr 150 mg PO DAILY RF: 0 omeprazole 20 mg tablet,delayed release (DR/EC) 20 mg PO BID RF: 0 albuterol sulfate [Ventolin HFA] 90 mcg/actuation HFA aerosol inhaler 2 puff inhalation Q4-6H PRN (Reason: Shortness Of Breath) RF: 0 Discontinued oxycodone-acetaminophen [Percocet] 5-325 mg tablet 1 tab PO Q4-6H PRN (Reason: pain,severe) Qty: 30 RF: 0 ibuprofen 600 mg tablet 600 mg PO Q6H PRN (Reason: pain) Qty: 30 RF: 0 Discharge Orders: Discharge Order (Routine); Ordered 04/08/21 Ordered By: Charlie Leonardo Diet: advance to usual diet Activity on Discharge: As tolerated Stand Alone Forms: Patient Portal Discharge page Care Plan Goals: Patient came with Tylenol overdose: Started on Mucomyst- completed protocol, LFTs improving- follow-up LFTs outpatient PCP in 1 week and further management as per PCP. avoid Tylenol and NSAID and other hepatotoxic medications. also had a question of small-bowel obstruction vs ileus: improved with hydration , bowel rest- tolerating diet, producing bowels- discussed with the surgery patient will go home with p.o. oxycodone. Further management outpatient as per PCP. Health Concerns: as above. Plan of Treatment: As above. Assessment: As above.
--- NOTE | 2021-04-08 19:11 | P.PNGI_ITS ---
Subjective Subjective Date of Service: 04/08/21 Interval History: ongoing pain related to postop surgery passing gas and stool no nausea or vomiting labs are better, LFT coming down, INR donw Critical Care Time (minutes): 0 Physical Exam Vital Signs: Vital Signs: Last Vital Signs Temp 98.2 F 04/08/21 11:48 Pulse 82 04/08/21 11:48 Resp 17 04/08/21 12:09 BP 122/58 L 04/08/21 11:48 Pulse Ox 96 04/08/21 11:48 BMI result Body Mass Index 19.5 Const: General: comfortable and no acute distress Orientation/consciousness: patient oriented x3 Neck: Neck: Yes no lymphadenopathy Resp: Effort & Inspection: normal respiratory effort Auscultation: clear to auscultation bilaterally Cardio: Rate: regular rate Rhythm: regular rhythm GI: Other: Incision clean and dry Palpation (GI): Soft to palpation, not firm, Tenderness to palpation present (GI) (Mild diffuse tenderness), no guarding and not rigid Neuro: General: patient oriented x3 Objective Data Labs CBC & Chem 7: 04/06/21 06:14 04/07/21 08:11 Labs: Laboratory Results - last 24 hr 04/05/21 02:05 Hepatitis A IgM Ab Nonreactive Microbiology Microbiology Results: Microbiology 04/05/21 03:17 Blood - Venous Blood Culture - Preliminary No growth after 48 hours. 04/05/21 03:17 Blood - Venous Blood Culture - Preliminary No growth after 48 hours. Procedures Date of Service Date of Service: 04/08/21 Progress Note: A&P Assessment and plan (1) Unintentional Tylenol overdose: Status: Acute Plan 1/ LFT and INR are normalizing, she seems to be out of the danger zone. 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 correct dosing of tylenol if to be used again i.e no more than 4g in 24 hr, avoid concurrent alcohol use , review alternative pain options if appropriate, will defer to primary team Fall Risk Details Current Medications: Current Medications Albuterol Sulfate (Albuterol Sulfate 90 Mcg 8 Gm Inhaler) 2 puff INHALE Q4H PRN PRN Reason: Shortness Of Breath Melatonin (Melatonin 3 Mg Tablet) 6 mg PO BEDTIME PRN PRN Reason: Insomnia Last Admin: 04/07/21 22:26 Dose: 6 mg Documented by: Omeprazole (Omeprazole 20 Mg Capsule.) 20 mg PO BID [facility] Last Admin: 04/08/21 08:55 Dose: 20 mg Documented by: Oxycodone HCl (Oxycodone Hcl Immed Release 5 Mg Tablet) 5 mg PO Q4H PRN PRN Reason: abd pain Last Admin: 04/08/21 15:50 Dose: 5 mg Documented by: Pharmacy Consult (Consult Rx Perform Med Rec) 1 each MISCELLANE ONCE PRN PRN Reason: Consult order Sodium Chloride (0.9 % Sodium Chloride Flush 3 Ml Syringe) 3 ml IVFLUSH QSHIFT [facility] Last Admin: 04/08/21 15:30 Dose: Not Given Documented by: Time Spent With Patient Time: Total time spent is greater than 50% in coordination of care (as documented) at patient's floor/unit and/or counseling patient: Time with patient: 15 - 24 minutes Quality Stroke Does the patient have a stroke diagnosis?: No VTE Prior VTE?: No VTE Risk Level:: Medical - moderate - high VTE Device Contraindication: Treatment Not Tolerated VTE Drug Contraindication: N/A - Med Ordered
== END 2021-04-08 19:14 | disposition home or self-care (01) | DRG 812 ==
LOC: HO.ED 05:37 → HO.EDOVER 09:12 → HO.S3 04-06 17:54
PROVIDERS: Internal Medicine Gastroenterology; Admitting Provider Internal Medicine; Emergency Provider Student in an Organized Health Care Education/Training Program; PCP Nurse Practitioner; Visit Provider Internal Medicine
DX: T39.1X1A Poisoning by 4-Aminophenol derivatives, accidental (unintentional), initial encounter (principal); K56.609 Unspecified intestinal obstruction, unspecified as to partial versus complete obstruction; K71.9 Toxic liver disease, unspecified; M32.9 Systemic lupus erythematosus, unspecified; K56.7 Ileus, unspecified; Z91.14 Patient's other noncompliance with medication regimen; G89.18 Other acute postprocedural pain; F17.210 Nicotine dependence, cigarettes, uncomplicated; Y92.009 Unspecified place in unspecified non-institutional (private) residence as the place of occurrence of the external cause; Z20.822 Contact with and (suspected) exposure to COVID-19; Z71.6 Tobacco abuse counseling; Z88.5 Allergy status to narcotic agent; Z79.899 Other long term (current) drug therapy
CPT/HCPCS: 36415; 74177; 80048; 80053; 80061; 80076; 80143; 81003; 82550; 83605; 83615; 83690; 83735; 85025; 85610; 86704; 86706; 86709; 86803; 87040; 87340; 87635; 96361; 96365; 96366; 96367; 96375; 96376; 99285; J0132; J1170; J2405; J2543; J3010; J3475; Q9967

== ENCOUNTER 2021-04-11 18:47 | Emergency (ER) | payer MEDICAID, SELFPAY ==
--- NOTE | 2021-04-11 | ECG_ITS ---
Test Reason : LEG SWELLING Blood Pressure : / mmHG Vent. Rate : 088 BPM Atrial Rate : 000 BPM P-R Int : 000 ms QRS Dur : 082 ms QT Int : 354 ms P-R-T Axes : 000 090 055 degrees QTc Int : 428 ms Normal sinus rhythm Rightward axis Borderline ECG When compared with ECG of 15-JUL-2020 10:06, No significant changes seen Referred By: Generic ED Physician Electronically Signed By:IVONNE LANDON
--- NOTE | ~2021-04-11 | US_ITS ---
EXAMINATION: US VENOUS ULTRASOUND WITH DOPPLER LOWER EXTREMITY, LEFT CLINICAL INFORMATION: Left leg swelling COMPARISON: None TECHNIQUE: Ultrasound of the deep veins is performed from the hip to the calf with compression sonography and color and pulse Doppler assessment. Spectral analysis with color-flow imaging is performed. FINDINGS: There is normal venous compression and respiratory variation and augmented flow. The visualized common femoral vein, superficial femoral vein, profunda femoral vein, popliteal vein, and the trifurcation region shows no evidence of deep venous thrombosis. There is no significant popliteal fossa cyst. If the patient's symptoms persist, followup ultrasound in 5 days 7 days might be of value to exclude proximal propagation from a non-visualized calf vein. US/US venous duplex LE LT IMPRESSION: No DVT demonstrated in the left lower extremity.
--- NOTE | ~2021-04-11 | XR_ITS ---
EXAMINATION: XR ABDOMEN KUB CLINICAL INDICATION: Abdominal pain status post surgery. COMPARISON: CT abdomen/pelvis dated 03/28/2021 TECHNIQUE: AP view of the abdomen. XR/XR KUB FINDINGS/IMPRESSION: Chain sutures present within the left midabdomen right lower quadrant. No bowel obstruction. Stool present within the right colon. No intraperitoneal free air. No unusual soft tissue calcifications.
--- NOTE | ~2021-04-11 | CT_ITS ---
EXAMINATION: CT ABDOMEN AND PELVIS WITH CONTRAST CLINICAL INFORMATION: Small bowel obstruction. Severe abdominal pain. COMPARISON: 04/05/2021 TECHNIQUE: Multidetector volumetric images were obtained from the superior aspect of the liver through the pubic symphysis following administration 85 mL of Omnipaque 350 intravenous contrast. Sagittal and coronal reformatted images were obtained on the technologist's workstation. Oral contrast: No This CT examination was performed using dose optimization techniques as appropriate, variously including the following: *Automated exposure control *Adjustment of mA and/or kV according to patient size (this includes techniques or standardized protocols for targeted exams where dose is matched to indication/reason for exam; i.e. extremities or head) *Use of iterative reconstruction technique DLP: 300 mGy-cm FINDINGS: LUNG BASES: Bibasilar subsegmental/platelike atelectasis. Stable 4 mm pleural/subpleural nodule within the right lower lobe. LIVER, GALLBLADDER, AND BILIARY TREE: The liver is normal in size, shape, and attenuation. No focal hepatic lesion or biliary ductal dilatation is present. Mild periportal edema. Gallbladder unremarkable. PANCREAS: Unremarkable. SPLEEN: Unremarkable. ADRENAL GLANDS: Unremarkable. KIDNEYS AND URETERS: The kidneys are normal in size, shape, and attenuation. Stable simple cyst within the left kidney requires no further follow-up. No hydronephrosis, hydroureter, or calculi seen. No perinephric stranding. BLADDER: Unremarkable. GASTROINTESTINAL TRACT: There is a enteroenteric anastomosis within left upper quadrant and right lower quadrant. There are a few mildly dilated loops of small bowel, without discrete point of transition. ABDOMINAL WALL: Stable cyst present along the midline abdominal wall. No hernia. LYMPH NODES: Normal. VASCULAR: Unremarkable. PELVIC VISCERA: Hysterectomy. No adnexal abnormalities. Small pelvic free fluid is slightly increased in quantity from the prior. OSSEOUS STRUCTURES: No acute or suspicious osseous abnormalities. CT/CT abdomen pelvis w con IMPRESSION: * Post surgical changes involving the small bowel. Small bowel shows a mild ileus pattern. No point of transition to suggest mechanical obstruction. * Small pelvic free fluid is slightly increased in quantity from the prior examination, nonspecific. This could be reactive to any number systemic and/or locoregional sources of inflammation. * Mild periportal edema may related to mild fluid overload or aggressive hydration.
[2021-04-11 19:30] VITALS: BP 111/48; PULSE 80; RESP 16; TEMP 36.2; O2SAT 99; BMI 17.9
[2021-04-11 20:39] LABS: MANUAL DIFF FLAG NO
[2021-04-11 20:42] LABS: Basophils Absolute Auto 0.1 X10*3/uL (0.0-0.2); Basophils Percent Auto 0.7 % (0-2); Eosinophils Absolute Auto 1.3 X10*3/uL (0.0-0.4); Eosinophils Percent Auto 12.5 % (0-4); Hematocrit 29.7 % (37.0-47.0); Imm Gran Abs Auto 0.04 X10*3/uL (0.00-0.03); Imm Gran Pct Auto 0.4 % (0.0-0.4); Lymphocytes Absolute Auto 2.5 X10*3/uL (1.2-4.9); Lymphocytes Percent Auto 23.5 % (20-40); Mean Corpuscular HGB Conc 33.7 g/dl (31.0-35.0); Mean Corpuscular Hemoglobin 33.1 pg (27.0-33.0); Mean Corpuscular Volume 98.3 fL (80.0-98.0); Mean Platelet Volume 9.4 fL (9.4-12.3); Monocytes Absolute Auto 0.6 X10*3/uL (0.1-1.2); Neutrophils Absolute Auto 6.1 x10*3/uL (2.0-8.3); Neutrophils Percent Auto 56.9 % (45-73); Platelet Count 459 X10*3/uL (160-400); Red Blood Count 3.02 X10*6/uL (4.20-5.50); Red Cell Distribution Width 14.2 % (11.0-16.0); White Blood Count 10.7 X10*3/uL (4.8-10.8)
[2021-04-11 20:57] LABS: Alanine Aminotransferase 178 U/L (0-31); Albumin Level 3.7 g/dL (3.5-5.0); Alkaline Phosphatase 143 U/L (39-117); Anion Gap 13 (12-20); Aspartate Amino Transferase 34 U/L (5-31); Bilirubin Total 0.3 mg/dL (0.0-1.0); Blood Urea Nitrogen 10 mg/dL (9-16); Calcium 9.4 mg/dL (8.4-10.2); Carbon Dioxide 32 mmol/L (22-29); Chloride 103 mmol/L (96-108); Creatinine Clr Calc Pharmacy 75.3; Estimated Glomerular Filt Rate > 60; Glucose Random 111 mg/dL (60-115); Potassium 4.2 mmol/L (3.3-5.1); Sodium 144 mmol/L (135-145); Total Protein 6.4 g/dL (6.5-8.0)
[2021-04-11 23:05] LABS: Acetaminophen LAB < 1 mcg/mL (<30)
[2021-04-11 23:06] VITALS: BP 105/51; PULSE 75; RESP 16; TEMP 36.8; O2SAT 98
--- NOTE | 2021-04-12 00:15 | ED_ITS ---
HPI - Extremity Injury (Lower) General Chief Complaint: Extremity Injury, Lower Stated Complaint: Leg swelling/Post surgery Time Seen by Provider: 04/11/21 23:48 Source: patient Mode of arrival: ambulatory Limitations: no limitations History of Present Illness HPI Narrative: Patient comes to emergency room complaining left lower extremity swelling. Patient noticed that yesterday her left ankle started getting more swollen. Patient denies significant calf pain. Patient is 2 weeks postop for a small-bowel obstruction. Patient denies being on blood thinners. Related Data Home Medications Medication Instructions Recorded Confirmed albuterol sulfate 90 mcg/actuation 2 puff INHALATION Q4-6H PRN 04/30/20 04/05/21 aerosol inhaler (Ventolin HFA) amitriptyline 25 mg tablet 25 mg PO BEDTIME 04/30/20 04/05/21 bupropion HCl 150 mg 24 hr tablet, 150 mg PO DAILY 04/30/20 04/05/21 extended release (Wellbutrin XL) lidocaine 5 % topical patch 2 patch TOPICAL DAILY 04/30/20 04/05/21 (Lidoderm) omeprazole 20 mg tablet,delayed 20 mg PO BID 04/30/20 04/05/21 release sennosides 8.6 mg tablet (senna) 17.2 mg PO BEDTIME PRN tab 04/30/20 04/05/21 trazodone 50 mg tablet 1 tab PO BEDTIME 03/22/21 04/05/21 Previous Rx's Medication Instructions Recorded docusate sodium 100 mg capsule 200 mg PO BEDTIME #60 cap 06/09/20 (Colace) oxycodone 5 mg tablet 5 mg PO Q6H PRN #10 tab 04/02/21 oxycodone 5 mg capsule 5 mg PO BID PRN #7 cap 04/08/21 oxycodone 5 mg tablet 5 mg PO Q8H PRN #7 tab 04/12/21 Allergies Allergy/AdvReac Type Severity Reaction Status Date / Time tramadol [TRAMADOL] Allergy Unknown NAUSEA & Verified 12/29/20 13:04 VOMITING Review of Systems Review of Systems: Constitutional : No Weight loss, No Fever, No Chills, No Night Sweats, No Fatigue, No Malaise ENT/Mouth : No Hearing loss, No Ear Pain, No Nasal Congestion, No Sinus Pain, No Hoarseness, No sore throat, No Rhinorrhea, No Swallowing Difficulty Eyes: No Eye Pain, No Swelling, No Redness, No Foreign Body, No Discharge, No Vision Changes Cardiovascular : No Chest Pain, No SOB, No Dyspnea on Exertion, No Orthopnea, No Edema, No Palpitations Respiratory : No Cough, No Sputum, No Wheezing, No Smoke Exposure, No Dyspnea Gastrointestinal : No Nausea, No Vomiting, No Diarrhea, No Constipation, complaining of abdominal pain at the incisional site, No Hematochezia, No Melena Genitourinary : no irregular bleeding, No Dysuria, No Urinary Frequency, No Hematuria, No Urinary Incontinence, No Urgency, No Flank Pain, No Urinary Flow Changes, No Hesitancy Musculoskeletal : No joint pain, No Myalgias, No Joint Swelling, complaining of lower extremity edema Skin : Healing abdominal incision Neuro : No Weakness, No Numbness, No Paresthesias, No Loss of Consciousness, No Dizziness, No Headache Psych : No Anxiety/Panic, No Depression, No SI/HI/AH/VH, No Social Issues, Heme/Lymph: No Bruising, No Bleeding,No Lymphadenopathy Endocrine : No Polyuria, No Polydipsia, No Temperature Intolerance PMFSH Past Medical History Medical History Abdominal adhesions Abdominal pain Acid reflux Chronic constipation Colitis Fibromyalgia Lupus Migraines Moderate malnutrition Osteoarthritis Osteoporosis Pulmonary nodules Vitamin D deficiency Surgical History H/O elbow surgery History of hysterectomy with oophorectomy History of removal of ovarian cyst Hx of appendectomy Hx of colonoscopy Hx of tonsillectomy Family History Family History Father Fibromyalgia Osteoporosis Mother Stroke Social History Social History Household Members: Family Housing: Apartment Do you presently have visiting nurse or other home services: No Alcohol intake: never Patient Tobacco Use Status: Current everyday Tobacco user Tobacco use type: Cigarette Cigarette Packs Per Day: 1 Cigarettes Per Day: 20.0 Years Smoked: 23 Second Hand Smoke Exposure: No Advance Directives: No Advance Directives Information Provided: Yes Patient : No service: No Current occupational status: disabled Physical Exam Vital Signs: Vital Signs: Last Vital Signs Temp 98.3 F 12/04/21 23:06 Pulse 75 04/11/21 23:06 Resp 16 04/12/21 00:29 BP 105/51 L 04/11/21 23:06 Pulse Ox 98 04/11/21 23:06 BMI result Body Mass Index 17.9 Const: Other: Appearance: Alert. Oriented X3. No acute distress. Eyes: Pupils equal, round and reactive to light. ENT: Pharynx normal. Neck: Normal inspection. Neck supple. No lymph nodes noted. No crepitus CVS: Normal heart rate and rhythm. Pulses normal. Normal S1 and S2 Respiratory: No respiratory distress. Breath sounds normal. No Wheezing. No rales Abdomen: Soft and nontender. No rigidity. No distention. Skin: Skin warm and dry. Normal skin color. Normal skin turgor. Extremities: No lower extremity edema. No lower extremity edema. No Lacerations. No Rash Neuro: Oriented X 3. No motor deficit. No sensory deficit. Moving all extermities. No slurred speech. Course Course Course Narrative: It has been over 2 and half weeks since the patient had her surgery. Patient is complaining severe abdominal pain. Labs did not show any acute pathology. However, patient has pain out of proportion. KUB was negative. I am going to go ahead and order CT scan given the amount of pain th at she is in. Neck ultrasound negative for DVT. CT scan does not show any acute pathology. MDM - Extremity Injury (Lower) Lab Data Result diagrams: 04/11/21 20:32 04/11/21 20:32 Labs: Lab Results 04/11/21 04/11/21 Range/Units 20:32 20:32 WBC 10.7 (4.8-10.8) X10*3/uL RBC 3.02 L (4.20-5.50) X10*6/uL Hgb 10.0 L (12.0-16.0) g/dl Hct 29.7 L (37.0-47.0) % MCV 98.3 H D (80.0-98.0) fL MCH 33.1 H (27.0-33.0) pg MCHC 33.7 (31.0-35.0) g/dl RDW 14.2 (11.0-16.0) % Plt Count 459 H (160-400) X10*3/uL MPV 9.4 (9.4-12.3) fL Immature Gran % (Auto) 0.4 (0.0-0.4) % Neut % (Auto) 56.9 (45-73) % Lymph % (Auto) 23.5 (20-40) % [place] % (Auto) 6.0 (2-11) % Eos % (Auto) 12.5 H (0-4) % Baso % (Auto) 0.7 (0-2) % Lymph # (Auto) 2.5 (1.2-4.9) X10*3/uL [place] # (Auto) 0.6 (0.1-1.2) X10*3/uL Eos # (Auto) 1.3 H (0.0-0.4) X10*3/uL Baso # (Auto) 0.1 (0.0-0.2) X10*3/uL Abs Immat Gran (auto) 0.04 H (0.00-0.03) X10*3/uL Absolute Neuts (auto) 6.1 (2.0-8.3) x10*3/uL Absolute Nucleated RBC 0.000 (0.0-0.012) X10*3/uL Nucleated RBC % (auto) 0.0 (0.0-0.2) /100WBC Sodium 144 (135-145) mmol/L Potassium 4.2 D (3.3-5.1) mmol/L Chloride 103 (96-108) mmol/L Carbon Dioxide 32 H (22-29) mmol/L Anion Gap 13 (12-20) BUN 10 (9-16) mg/dL Creatinine 0.62 (0.5-1.4) mg/dL Estim Creat Clear Calc 75.3 Estimated GFR > 60 Random Glucose 111 (60-115) mg/dL Calcium 9.4 D (8.4-10.2) mg/dL Total Bilirubin 0.3 (0.0-1.0) mg/dL AST 34 H D (5-31) U/L ALT 178 H (0-31) U/L Alkaline Phosphatase 143 H D (39-117) U/L Total Protein 6.4 L D (6.5-8.0) g/dL Albumin 3.7 D (3.5-5.0) g/dL Acetaminophen < 1 (<30) mcg/mL Imaging Data Venous US: Radiologist's impression: Ultrasound of the deep veins is performed from the hip to the calf with compression sonography and color and pulse Doppler assessment. Spectral analysis with color-flow imaging is performed. FINDINGS: There is normal venous compression and respiratory variation and augmented flow. The visualized common femoral vein, superficial femoral vein, profunda femoral vein, popliteal vein, and the trifurcation region shows no evidence of deep venous thrombosis. ? There is no significant popliteal fossa cyst. If the patient's symptoms persist, followup ultrasound in 5 days 7 days might be of value to exclude proximal propagation from a non-visualized calf vein. US/US venous duplex LE LT IMPRESSION: No DVT demonstrated in the left lower extremity. CT scan - abdomen: Radiologist's impression: FINDINGS: LUNG BASES: Bibasilar subsegmental/platelike atelectasis. Stable 4 mm pleural/subpleural nodule within the right lower lobe.? LIVER, GALLBLADDER, AND BILIARY TREE: The liver is normal in size, shape, and attenuation. No focal hepatic lesion or biliary ductal dilatation is present. Mild periportal edema. Gallbladder unremarkable. ? PANCREAS: Unremarkable.? SPLEEN: Unremarkable.? ADRENAL GLANDS: Unremarkable.? KIDNEYS AND URETERS: The kidneys are normal in size, shape, and attenuation. Stable simple cyst within the left kidney requires no further follow-up. No hydronephrosis, hydroureter, or calculi seen. No perinephric stranding. ? BLADDER: Unremarkable.? GASTROINTESTINAL TRACT: There is a enteroenteric anastomosis within left upper quadrant and right lower quadrant. There are a few mildly dilated loops of small bowel, without discrete point of transition. ABDOMINAL WALL: Stable cyst present along the midline abdominal wall. No hernia.? LYMPH NODES: Normal. VASCULAR: Unremarkable. PELVIC VISCERA: Hysterectomy. No adnexal abnormalities. Small pelvic free fluid is slightly increased in quantity from the prior.? OSSEOUS STRUCTURES: No acute or suspicious osseous abnormalities.? CT/CT abdomen pelvis w con IMPRESSION: *? Post surgical changes involving the small bowel. Small bowel shows a mild ileus pattern. No point of transition to suggest mechanical obstruction. *? Small pelvic free fluid is slightly increased in quantity from the prior examination, nonspecific. This could be reactive to any number systemic and/or locoregional sources of inflammation. *? Mild periportal edema may related to mild fluid overload or aggressive hydration. Discharge Plan Discharge Clinical Impression: Ankle swelling, Chronic abdominal pain Patient Disposition: Home, Self-Care Instructions: Abdominal Pain (ED), Swollen Ankle Joint (ED) Additional Instructions: Please follow-up with your primary care physician tomorrow. If you have any worsening or new symptoms, please return to the emergency room or call 911 Prescriptions: New oxycodone 5 mg tablet 5 mg PO Q8H PRN (Reason: pain) Qty: 7 RF: 0 No Action trazodone 50 mg tablet 1 tab PO BEDTIME RF: 0 oxycodone 5 mg tablet 5 mg PO Q6H PRN (Reason: pain) Qty: 10 RF: 0 oxycodone 5 mg capsule 5 mg PO BID PRN (Reason: pain) Qty: 7 RF: 0 docusate sodium [Colace] 100 mg capsule 200 mg PO BEDTIME Qty: 60 RF: 5 amitriptyline 25 mg tablet 25 mg PO BEDTIME RF: 0 lidocaine [Lidoderm] 5 % adhesive patch,medicated 2 patch topical DAILY RF: 0 sennosides [senna] 8.6 mg tablet 17.2 mg PO BEDTIME PRN (Reason: Constipation) RF: 0 bupropion HCl [Wellbutrin XL] 150 mg tablet extended release 24 hr 150 mg PO DAILY RF: 0 omeprazole 20 mg tablet,delayed release (DR/EC) 20 mg PO BID RF: 0 albuterol sulfate [Ventolin HFA] 90 mcg/actuation HFA aerosol inhaler 2 puff inhalation Q4-6H PRN (Reason: Shortness Of Breath) RF: 0
[2021-04-12 00:29] VITALS: RESP 16
[2021-04-12] MEDS: Morphine Sulfate 4 MG/ML CARTRIDGE IM (00:29)
[2021-04-12] MEDS: Ondansetron ODT 4 MG TAB.RAPDIS TRANSLINGU ×2 (00:29→03:47)
[2021-04-12] MEDS: iohexoL 350 MG/ML 100 ML INFUS..BTL 85 ML IV (02:42)
[2021-04-12] MEDS: oxyCODONE HCl Immed Release 5 MG TABLET 10 MG PO (03:25)
[2021-04-12 03:29] VITALS: BP 131/69; PULSE 71; RESP 16; TEMP 36.8; O2SAT 98
== END 2021-04-12 03:54 | disposition home or self-care (01) ==
PROVIDERS: Emergency Provider Emergency Medicine; PCP Nurse Practitioner
DX: R60.0 Localized edema (principal); G89.29 Other chronic pain; R10.9 Unspecified abdominal pain; F17.200 Nicotine dependence, unspecified, uncomplicated; Z98.890 Other specified postprocedural states
CPT/HCPCS: 36415; 74018; 74177; 80053; 80143; 85025; 93005; 93971; 96372; 99284; J2270; Q9967

== ENCOUNTER 2021-04-14 12:22 | Emergency (ER) | payer MEDICAID, SELFPAY ==
[2021-04-14 12:31] VITALS: BP 107/52; PULSE 69; RESP 18; TEMP 36.6; O2SAT 98; BMI 21.9
[2021-04-14 14:03] LABS: MANUAL DIFF FLAG NO
[2021-04-14 14:06] LABS: Basophils Absolute Auto 0.1 X10*3/uL (0.0-0.2); Basophils Percent Auto 0.7 % (0-2); Eosinophils Absolute Auto 0.8 X10*3/uL (0.0-0.4); Eosinophils Percent Auto 8.9 % (0-4); Hematocrit 30.3 % (37.0-47.0); Hemoglobin 10.1 g/dl (12.0-16.0); Imm Gran Abs Auto 0.03 X10*3/uL (0.00-0.03); Imm Gran Pct Auto 0.4 % (0.0-0.4); Lymphocytes Absolute Auto 1.4 X10*3/uL (1.2-4.9); Lymphocytes Percent Auto 16.9 % (20-40); Mean Corpuscular HGB Conc 33.3 g/dl (31.0-35.0); Mean Platelet Volume 9.3 fL (9.4-12.3); Monocytes Absolute Auto 0.5 X10*3/uL (0.1-1.2); Monocytes Percent Auto 6.1 % (2-11); Neutrophils Absolute Auto 5.6 x10*3/uL (2.0-8.3); Platelet Count 400 X10*3/uL (160-400); Red Blood Count 3.06 X10*6/uL (4.20-5.50); Red Cell Distribution Width 13.7 % (11.0-16.0); White Blood Count 8.4 X10*3/uL (4.8-10.8)
[2021-04-14 14:24] LABS: Alanine Aminotransferase 89 U/L (0-31); Albumin Level 3.6 g/dL (3.5-5.0); Alkaline Phosphatase 128 U/L (39-117); Anion Gap 12 (12-20); Aspartate Amino Transferase 22 U/L (5-31); Bilirubin Total 0.3 mg/dL (0.0-1.0); Blood Urea Nitrogen 9 mg/dL (9-16); Calcium 9.3 mg/dL (8.4-10.2); Carbon Dioxide 32 mmol/L (22-29); Chloride 104 mmol/L (96-108); Creatinine Clr Calc Pharmacy 84.7; Estimated Glomerular Filt Rate > 60; Glucose Random 105 mg/dL (60-115); Potassium 4.8 mmol/L (3.3-5.1); Sodium 143 mmol/L (135-145); Total Protein 6.2 g/dL (6.5-8.0)
--- NOTE | 2021-04-14 15:07 | ED.GENADULT ---
HPI - General Adult General Chief complaint: General Medical Stated complaint: swelling Time Seen by Provider: 04/14/21 14:33 Source: patient Mode of arrival: ambulatory Limitations: language barrier History of Present Illness HPI narrative: 56 y/o female with history of lupus, fibromyalgia, colitis, SBO s/p ex-lap, DONA and small bowel resection x2 on 03/[address] Benites who presents to the ER today with persistent ankle swelling since last week along with ongoing abdominal pain since the surgery. Patient was seen here 2 days ago, had a negative lower extremity Doppler study as well as a CT scan at that at the time showed mild ileus. She was discharged with a few tablets of oxycodone with plan to follow up with Dr. Benites as an outpatient. She reports she ran out of the pain medication and she has ongoing pain. She states that Dr. Benites did tell her it would be several weeks for her to recovery from this surgery. She reports pain is worse with movement. She is eating and drinking normally, is passing flatus but reports some nausea. No vomiting. She reports constipation with no bowel movement in 3 days however she did have a moderate-size BM this morning. MD complaint: Abdominal pain and ankle swelling Onset (ago): day(s) Location: abdomen and lower extremity Radiation: non-radiation Severity: severe Severity scale (1-10): 8 Quality: aching Pain Consistency: intermittent Relieving factors: medication Exacerbating factors: movement Associated symptoms: denies other symptoms Treatments prior to arrival: none Related Data Home Medications Medication Instructions Recorded Confirmed albuterol sulfate 90 mcg/actuation 2 puff INHALATION Q4-6H PRN 04/30/20 04/05/21 aerosol inhaler (Ventolin HFA) amitriptyline 25 mg tablet 25 mg PO BEDTIME 04/30/20 04/05/21 bupropion HCl 150 mg 24 hr tablet, 150 mg PO DAILY 04/30/20 04/05/21 extended release (Wellbutrin XL) lidocaine 5 % topical patch 2 patch TOPICAL DAILY 04/30/20 04/05/21 (Lidoderm) omeprazole 20 mg tablet,delayed 20 mg PO BID 04/30/20 04/05/21 release sennosides 8.6 mg tablet (senna) 17.2 mg PO BEDTIME PRN tab 04/30/20 04/05/21 trazodone 50 mg tablet 1 tab PO BEDTIME 03/22/21 04/05/21 Previous Rx's Medication Instructions Recorded docusate sodium 100 mg capsule 200 mg PO BEDTIME #60 cap 06/09/20 (Colace) oxycodone 5 mg tablet 5 mg PO Q6H PRN #10 tab 04/02/21 oxycodone 5 mg capsule 5 mg PO BID PRN #7 cap 04/08/21 oxycodone 5 mg tablet 5 mg PO Q8H PRN #7 tab 04/12/21 oxycodone 5 mg tablet 5 mg PO Q8H PRN #8 tab 04/14/21 Allergies Allergy/AdvReac Type Severity Reaction Status Date / Time tramadol [TRAMADOL] Allergy Unknown NAUSEA & Verified 12/29/20 13:04 VOMITING Review of Systems Review of Systems: Constitutional: No Fever, No Chills ENT/Mouth: No sore throat, No Rhinorrhea, No Swallowing Difficulty Cardiovascular: No Chest Pain, No SOB, No Orthopnea, + Edema Respiratory: No Cough, No Sputum, No Wheezing, No dyspnea Gastrointestinal: + Nausea, No Vomiting, No Diarrhea, + abdominal Pain, No Hematochezia, No Melena Genitourinary: No Dysuria, No Urinary Frequency, No Hematuria Musculoskeletal: No joint pain, No Myalgias Skin: No Skin Lesions, No rash Neuro: No Weakness, No Numbness, No Dizziness, + Headache Psych: + Anxiety/Panic, No Depression Heme/Lymph: No Bruising, No Lymphadenopathy Endocrine: No Polyuria, No Polydipsia PMFSH Past Medical History Medical History Abdominal adhesions Abdominal pain Acid reflux Chronic constipation Colitis Fibromyalgia Lupus Migraines Moderate malnutrition Osteoarthritis Osteoporosis Pulmonary nodules Vitamin D deficiency Surgical History H/O elbow surgery History of hysterectomy with oophorectomy History of removal of ovarian cyst Hx of appendectomy Hx of colonoscopy Hx of tonsillectomy Family History Family History Father Fibromyalgia Osteoporosis Mother Stroke Social History Social History Household Members: Family Housing: Apartment Do you presently have visiting nurse or other home services: No Alcohol intake: never Patient Tobacco Use Status: Current everyday Tobacco user Tobacco use type: Cigarette Cigarette Packs Per Day: 1 Cigarettes Per Day: 20.0 Years Smoked: 23 Second Hand Smoke Exposure: No service: No Current occupational status: disabled Physical Exam Vital Signs: Vital Signs: Last Vital Signs Temp 98.4 F 04/14/21 16:00 Pulse 71 04/14/21 16:00 Resp 20 04/14/21 16:00 BP 149/66 H 04/14/21 16:00 Pulse Ox 100 04/14/21 16:00 BMI result Body Mass Index 21.9 Appearance: Alert. Oriented X3. Curled up in a ball on her right side. Eyes: Pupils equal, round and reactive to light. ENT: Pharynx normal. Neck: Normal inspection. Neck supple. CVS: Normal heart rate and rhythm. Pulses normal. Respiratory: No respiratory distress. Breath sounds normal. Abdomen: Well healing longitudinal surgical scar consistent from prior surgery, no erythema, warmth, or drainage. few small scattered ecchymosis on abd wall. Soft with tenderness and guarding on the left side of her abdomen. +BS x4 Skin: Skin warm and dry. Normal skin color. Normal skin turgor. No rashes. Extremities: + bilateral lower extremity edema involving the ankles only. No calf tenderness. Neuro: Oriented X 3. No motor deficit. No sensory deficit. Course Course Course Narrative: 56-year-old female with a recent SBO and prolonged abdominal surgery in the middle of March presents to the ER with ongoing abdominal pain as well as new ankle swelling that started last week. She had negative DVT study last 2 days ago, no indication for repeat at this time. Will check a BNP. As far as her abdominal pain is concerned she is passing flatus and stool. No evidence of obstruction. Will hold off on repeat imaging. Will discuss staple removal Dr. Benites. Reevaluation(s) Reevaluation #1: Dr. Benites came and evaluated the patient at the bedside. Okay to remove isaias. Her BNP is 200. No evidence of CHF. She is not on diuretics. We discussed management of edema in the sense elevation, decrease salt intake and compression stockings. She is encourage follow-up with her primary care doctor if this persists or worsen to discuss possible initiation of diuretic therapy and obtaining an echocardiogram. No need to initiate this today. She has no shortness of breath and is comfortably lying flat. She has ongoing abdominal pain that will need to be managed by her primary care doctor and surgeon moving forward. We discussed the downside of constipation being a result of the ongoing narcotic she is taking. She will increase her bowel regimen to include MiraLax and senna and Colace. Will give a few tablets of oxycodone to help with her pain and this acute state but reminded she will need to follow-up with her doctors for ongoing pain management. Patient is in agreement. She is stable for discharge home. Consultations Consultation #1: Dr. Benites Medical Decision Making Lab Data Result diagrams: 04/14/21 13:56 04/14/21 13:56 Labs: Lab Results 04/14/21 04/14/21 04/14/21 Range/Units 13:56 13:56 13:56 WBC 8.4 (4.8-10.8) X10*3/uL RBC 3.06 L (4.20-5.50) X10*6/uL Hgb 10.1 L (12.0-16.0) g/dl Hct 30.3 L (37.0-47.0) % MCV 99.0 H (80.0-98.0) fL MCH 33.0 (27.0-33.0) pg MCHC 33.3 (31.0-35.0) g/dl RDW 13.7 (11.0-16.0) % Plt Count 400 (160-400) X10*3/uL MPV 9.3 L (9.4-12.3) fL Immature Gran % (Auto) 0.4 (0.0-0.4) % Neut % (Auto) 67.0 (45-73) % Lymph % (Auto) 16.9 L (20-40) % [place] % (Auto) 6.1 (2-11) % Eos % (Auto) 8.9 H (0-4) % Baso % (Auto) 0.7 (0-2) % Lymph # (Auto) 1.4 (1.2-4.9) X10*3/uL [place] # (Auto) 0.5 (0.1-1.2) X10*3/uL Eos # (Auto) 0.8 H (0.0-0.4) X10*3/uL Baso # (Auto) 0.1 (0.0-0.2) X10*3/uL Abs Immat Gran (auto) 0.03 (0.00-0.03) X10*3/uL Absolute Neuts (auto) 5.6 (2.0-8.3) x10*3/uL Absolute Nucleated RBC 0.000 (0.0-0.012) X10*3/uL Nucleated RBC % (auto) 0.0 (0.0-0.2) /100WBC Sodium 143 (135-145) mmol/L Potassium 4.8 (3.3-5.1) mmol/L Chloride 104 (96-108) mmol/L Carbon Dioxide 32 H (22-29) mmol/L Anion Gap 12 (12-20) BUN 9 (9-16) mg/dL Creatinine 0.60 (0.5-1.4) mg/dL Estim Creat Clear Calc 84.7 Estimated GFR > 60 Random Glucose 105 (60-115) mg/dL Calcium 9.3 (8.4-10.2) mg/dL Total Bilirubin 0.3 (0.0-1.0) mg/dL AST 22 (5-31) U/L ALT 89 H (0-31) U/L Alkaline Phosphatase 128 H (39-117) U/L B-Natriuretic Peptide 203 H (<100) pg/mL Total Protein 6.2 L (6.5-8.0) g/dL Albumin 3.6 (3.5-5.0) g/dL Urine Color Urine Appearance Urine pH (5.0-8.0) Ur Specific [place] (1.005-1.025) Urine Protein (NEG-TRACE) MG/DL Urine Glucose (UA) (NEG) MG/DL Urine Ketones (NEG) MG/DL Urine Blood (NEG) Urine Nitrite (NEG) Ur Leukocyte Esterase (NEG) Urine RBC (0) /HPF Urine WBC (0-4) /HPF Ur Squamous Epith Cells /LPF Calcium Oxalate Crystal /LPF Amorphous Sediment /LPF Urine Bacteria /LPF COVID-19 ([facility]) (Negative) COVID-19 Clin Com 04/14/21 04/14/21 Range/Units 15:09 16:42 WBC (4.8-10.8) X10*3/uL RBC (4.20-5.50) X10*6/uL Hgb (12.0-16.0) g/dl Hct (37.0-47.0) % MCV (80.0-98.0) fL MCH (27.0-33.0) pg MCHC (31.0-35.0) g/dl RDW (11.0-16.0) % Plt Count (160-400) X10*3/uL MPV (9.4-12.3) fL Immature Gran % (Auto) (0.0-0.4) % Neut % (Auto) (45-73) % Lymph % (Auto) (20-40) % [place] % (Auto) (2-11) % Eos % (Auto) (0-4) % Baso % (Auto) (0-2) % Lymph # (Auto) (1.2-4.9) X10*3/uL [place] # (Auto) (0.1-1.2) X10*3/uL Eos # (Auto) (0.0-0.4) X10*3/uL Baso # (Auto) (0.0-0.2) X10*3/uL Abs Immat Gran (auto) (0.00-0.03) X10*3/uL Absolute Neuts (auto) (2.0-8.3) x10*3/uL Absolute Nucleated RBC (0.0-0.012) X10*3/uL Nucleated RBC % (auto) (0.0-0.2) /100WBC Sodium (135-145) mmol/L Potassium (3.3-5.1) mmol/L Chloride (96-108) mmol/L Carbon Dioxide (22-29) mmol/L Anion Gap (12-20) BUN (9-16) mg/dL Creatinine (0.5-1.4) mg/dL Estim Creat Clear Calc Estimated GFR Random Glucose (60-115) mg/dL Calcium (8.4-10.2) mg/dL Total Bilirubin (0.0-1.0) mg/dL AST (5-31) U/L ALT (0-31) U/L Alkaline Phosphatase (39-117) U/L B-Natriuretic Peptide (<100) pg/mL Total Protein (6.5-8.0) g/dL Albumin (3.5-5.0) g/dL Urine Color YELLOW Urine Appearance CLOUDY Urine pH 7.0 (5.0-8.0) Ur Specific [place] 1.015 (1.005-1.025) Urine Protein NEG (NEG-TRACE) MG/DL Urine Glucose (UA) NEG (NEG) MG/DL Urine Ketones NEG (NEG) MG/DL Urine Blood NEG (NEG) Urine Nitrite NEG (NEG) Ur Leukocyte Esterase TRACE H (NEG) Urine RBC 1-4 (0) /HPF Urine WBC 1-4 (0-4) /HPF Ur Squamous Epith Cells 1+ /LPF Calcium Oxalate Crystal TRACE /LPF Amorphous Sediment 2+ /LPF Urine Bacteria TRACE /LPF COVID-19 ([facility]) Negative (Negative) COVID-19 Clin Com See Note Discharge Plan Discharge Clinical Impression: Postoperative abdominal pain Ankle swelling Qualifiers: Laterality: unspecified laterality Qualified Code(s): M25.473 - Effusion, unspecified ankle Patient Disposition: Home, Self-Care Instructions: Constipation (ED), Leg Edema (ED), Abdominal Pain (ED) Additional Instructions: Recommend elevation of your legs and feet whenever possible. Recommend use of compression hose stockings to help with leg swelling. If the swelling persists or worsens recommend contacting her doctor for evaluation of a possible water pill. Take the prescribed medication as needed for severe abdominal pain. This medication is known to cause constipation and can in return worsen your abdominal pain so please take with caution. Recommend taking daily MiraLax 17 g this was sent to your pharmacy. Recommend daily Colace and senna as well to help prevent constipation. Follow-up with Dr. Benites is in the office as needed. If you develop new or worsening symptoms call 911 or come back to the ER for further evaluation. Recomiende la elevaci?n de piernas y pies siempre que sea posible. Recomiende el uso de medias de compresi?n para ayudar con la hinchaz?n de las piernas. Si la hinchaz?n persiste o empeora, recomiende contactar a liu m?dico para que eval?e kathy posible pastilla de agua. [place] el medicamento recetado seg?n sea necesario para el dolor abdominal intenso. Se sabe que deysi medicamento causa estre?imiento y, a cambio, puede empeorar liu dolor abdominal, as? que t?ventura con precauci?n. Se recomienda amanda diariamente MiraLax 17 g que se envi? a liu farmacia. Recomiende Colace y sen a diario tambi?n para ayudar a prevenir el estre?imiento. El seguimiento con el Dr. Felix?chase est? en la oficina seg?n sea necesario. Si presenta s?ntomas nuevos o que empeoran, llame al 911 o regrese a la dominick de emergencias para kathy evaluaci?n adicional. Prescriptions: New oxycodone 5 mg tablet 5 mg PO Q8H PRN (Reason: pain) Qty: 8 RF: 0 No Action trazodone 50 mg tablet 1 tab PO BEDTIME RF: 0 oxycodone 5 mg tablet 5 mg PO Q6H PRN (Reason: pain) Qty: 10 RF: 0 oxycodone 5 mg capsule 5 mg PO BID PRN (Reason: pain) Qty: 7 RF: 0 oxycodone 5 mg tablet 5 mg PO Q8H PRN (Reason: pain) Qty: 7 RF: 0 docusate sodium [Colace] 100 mg capsule 200 mg PO BEDTIME Qty: 60 RF: 5 amitriptyline 25 mg tablet 25 mg PO BEDTIME RF: 0 lidocaine [Lidoderm] 5 % adhesive patch,medicated 2 patch topical DAILY RF: 0 sennosides [senna] 8.6 mg tablet 17.2 mg PO BEDTIME PRN (Reason: Constipation) RF: 0 bupropion HCl [Wellbutrin XL] 150 mg tablet extended release 24 hr 150 mg PO DAILY RF: 0 omeprazole 20 mg tablet,delayed release (DR/EC) 20 mg PO BID RF: 0 albuterol sulfate [Ventolin HFA] 90 mcg/actuation HFA aerosol inhaler 2 puff inhalation Q4-6H PRN (Reason: Shortness Of Breath) RF: 0 Referrals: Torey Benites MD [Physician] - 2 days
[2021-04-14 15:40] LABS: B Type Natriuretic Peptide 203 pg/mL (<100)
[2021-04-14 15:40] LABS: COVID-19 Test Negative (Negative)
[2021-04-14 16:00] VITALS: BP 149/66; PULSE 71; RESP 20; TEMP 36.9; O2SAT 100
--- NOTE | 2021-04-14 16:32 | PM.EVENT ---
Event Note Date of Service: 04/14/21 Event Note: asked to remove skin isaias incision from laparotomy wellhealed all skin isaias removed pt tolerating diet no N/V has flatus and BMs says she needs her oral pain meds reminded her to see me for offiice ffup
[2021-04-14] MEDS: Docusate Sodium 100 MG CAPSULE 200 MG PO (16:41)
[2021-04-14] MEDS: oxyCODONE HCl Immed Release 5 MG TABLET PO (16:41)
[2021-04-14] MEDS: polyethylene glycoL 3350 17 GM POWD.PACK PO (16:41)
[2021-04-14 16:51] LABS: Appearance Urine CLOUDY; Color Urine YELLOW; Glucose Urine UA NEG (NEG); Leukocyte Esterase Urine TRACE (NEG); Nitrite Urine NEG (NEG); Specific Gravity - Urine 1.015 (1.005-1.025); UACC Culture Trigger YES; Urine Blood NEG (NEG); Urine Ketones NEG (NEG); Urine Protein NEG (NEG-TRACE)
[2021-04-14 16:58] LABS: Amorphous Sediment Urine 2+ /LPF; Squamous Epithelial Cell Urine 1+ /LPF
[2021-04-14 16:59] LABS: Bacteria Urine TRACE /LPF; Calcium Oxalate Crystals Urine TRACE /LPF
== END 2021-04-14 17:41 | disposition home or self-care (01) ==
PROVIDERS: Physician Assistant; Emergency Provider Emergency Medicine Emergency Medical Services; PCP Nurse Practitioner
DX: M25.472 Effusion, left ankle (principal); R10.9 Unspecified abdominal pain; R60.0 Localized edema; R06.02 Shortness of breath; F17.210 Nicotine dependence, cigarettes, uncomplicated; Z20.822 Contact with and (suspected) exposure to COVID-19; Z79.899 Other long term (current) drug therapy; Z71.6 Tobacco abuse counseling
CPT/HCPCS: 36415; 80053; 81001; 83880; 85025; 87086; 87635; 99283; 99499

== ENCOUNTER → 2021-04-29 13:14 | Outpatient (BNVA) | payer MEDICAID, SELFPAY | PROVIDERS: PCP Nurse Practitioner; Referring Provider Nurse Practitioner; Visit Provider Surgery | DX: Z48.815 Encounter for surgical aftercare following surgery on the digestive system (principal); Z98.890 Other specified postprocedural states | CPT/HCPCS: 99212 ==

== ENCOUNTER → 2021-05-22 09:23 | Outpatient (BNVA) | payer MEDICAID, SELFPAY | PROVIDERS: PCP Nurse Practitioner; Referring Provider Nurse Practitioner; Visit Provider Surgery | DX: L76.82 Other postprocedural complications of skin and subcutaneous tissue (principal) | CPT/HCPCS: 99212 ==

== ENCOUNTER 2021-06-03 17:02 | Emergency (ER) | payer MEDICAID, SELFPAY ==
[2021-06-03 17:10] VITALS: BP 130/70; PULSE 100
[2021-06-03 17:41] VITALS: BP 127/69; PULSE 83; RESP 18; TEMP 36.6; O2SAT 94; BMI 17.3
--- NOTE | 2021-06-03 20:16 | PC.NURSE ---
pt left the waiting room. empty wheelchair. multiple attempts by all staff, security and this rn to aid pt in her needs. mutiple family members calling triage for updates and asking for treatment for the pt. pt wheelchair empty at this time.
== END 2021-06-03 20:28 | disposition left against medical advice (07) ==
PROVIDERS: Emergency Provider Emergency Medicine
DX: R10.9 Unspecified abdominal pain (principal)
CPT/HCPCS: 99281; 99282

== ENCOUNTER → 2021-07-02 10:28 | Outpatient (BNVA) | payer MEDICAID, SELFPAY | PROVIDERS: Visit Provider Internal Medicine ==

== ENCOUNTER 2021-07-08 10:30 | Outpatient (REF) | payer MEDICAID, SELFPAY ==
--- NOTE | ~2021-07-08 | CT_ITS ---
EXAMINATION: CT ABDOMEN AND PELVIS WITHOUT CONTRAST CLINICAL INFORMATION: Rule out incisional hernia COMPARISON: Previous CT of the abdomen and pelvis April 2021 TECHNIQUE: Multidetector volumetric imaging was performed from the superior aspect of the liver through the pubic symphysis. Sagittal and coronal reformatted images were obtained on the technologist's workstation. This CT examination was performed using dose optimization techniques as appropriate, variously including the following: *Automated exposure control *Adjustment of mA and/or kV according to patient size (this includes techniques or standardized protocols for targeted exams where dose is matched to indication/reason for exam; i.e. extremities or head) *Use of iterative reconstruction technique DLP: 231 mGy-cm FINDINGS: LUNG BASES: There is scarring or subsegmental atelectasis at the lung bases. LIVER, GALLBLADDER, AND BILIARY TREE: The liver is normal in size, shape, and attenuation. No focal hepatic lesion or biliary ductal dilatation is present. The gallbladder is contracted. PANCREAS: Unremarkable. SPLEEN: Unremarkable. ADRENAL GLANDS: Unremarkable. KIDNEYS AND URETERS: There is a 1 cm low-attenuation lesion in the upper pole the left kidney suggestive of a cyst that is stable. No imaging follow-up needed. There are small 1 to 2 mm nonobstructing stone in the upper and mid pole of the left kidney. The kidneys are otherwise unremarkable. BLADDER: Unremarkable. GASTROINTESTINAL TRACT: There are postsurgical changes with surgical staple lines in the a small bowel in the left mid abdomen and right lower quadrant. Small bowel loops appear slightly dilated and fluid-filled measuring up to 3 cm in diameter. Large bowel is unremarkable. The appendix is not seen. ABDOMINAL WALL: There are postsurgical changes to the anterior abdominal wall. No hernia or fluid collection is seen. LYMPH NODES: Normal. VASCULAR: Unremarkable. PELVIC VISCERA: The uterus has been removed. No pelvic mass is seen. OSSEOUS STRUCTURES: Unremarkable. CT/CT abdomen pelvis wo con IMPRESSION: Postsurgical changes to the abdominal wall. No hernia or fluid collection seen. Postsurgical changes to the small bowel. There are slightly dilated fluid-filled loops of small bowel. There is a stool throughout the colon. Small left renal stones. Small left renal cyst. Fleischner guidelines were followed.
== END 2021-07-08 10:31 | disposition home or self-care (01) ==
LOC: HO.CT 10:30
PROVIDERS: PCP Nurse Practitioner; Visit Provider Surgery
DX: L76.82 Other postprocedural complications of skin and subcutaneous tissue (principal); N28.1 Cyst of kidney, acquired; N20.0 Calculus of kidney; Z90.710 Acquired absence of both cervix and uterus
CPT/HCPCS: 74176

== ENCOUNTER → 2021-07-16 13:41 | Outpatient (BNVA) | payer MEDICAID, SELFPAY | PROVIDERS: PCP Nurse Practitioner; Visit Provider Surgery | DX: Z09 Encounter for follow-up examination after completed treatment for conditions other than malignant neoplasm (principal); L76.82 Other postprocedural complications of skin and subcutaneous tissue; R74.01 Elevation of levels of liver transaminase levels | CPT/HCPCS: 99202; 99212 ==

== ENCOUNTER 2021-07-24 10:27 | Outpatient (REF) | payer MEDICAID, SELFPAY ==
--- NOTE | ~2021-07-24 | MM_ITS ---
EXAMINATION: BONE DENSITOMETRY CLINICAL INDICATION: Age-related osteoporosis without current pathological fracture. COMPARISON: Baseline BD dated 04/25/2018 (lumbar spine and left hip). This is the initial examination of the left forearm radius 33%. TECHNIQUE: Using a [employer] DXA System (software version: 13.1) manufactured by [employer], dual-energy x-ray absorptiometry was performed of the lumbar spine, left hip and left forearm radius 33%. The images are of good technical quality. Summary results are attached. FINDINGS: AP SPINE L1-L4: Current: BMD 0.782 g/cm2, Z-score -2.0, T-score -3.3, osteoporosis, 8.9% decrease from baseline (<5% change is not significant). Baseline: BMD 0.858 g/cm2. LEFT FEMUR, NECK: Current: BMD 0.764 g/cm2, Z-score -0.6, T-score -2.0, osteopenia. Baseline: BMD 0.788 g/cm2. LEFT FEMUR, TOTAL: Current: BMD 0.751 g/cm2, Z-score -1.0, T-score -2.0, osteopenia, 5.7% decrease from baseline (<5% change is not significant). Baseline: BMD 0.796 g/cm2. LEFT FOREARM RADIUS 33%: BMD 0.596 g/cm2, Z-score -2.8, T-score -3.2, osteoporosis. Prior: Not previously measured. IDENTIFIED RISK FACTORS: Osteoporosis. Current smoker. Recurrent falls. Secondary osteoporosis (intestinal or bowel disease, early menopause). Anticonvulsant. Hysterectomy. Bilateral oophorectomy. HISTORY OF FRACTURE: None listed. MEDICATIONS: Calcium supplement and/or multivitamin. Vitamin D. MM/XR DEXA appendicular skeleton IMPRESSION: 1. DIAGNOSIS: Osteoporosis based on the lowest T-score value of -3.3 in the lumbar spine applying World Health Organization criteria. 2. 10-YEAR FRACTURE RISK PREDICTION, FRAX: According to the guidelines, FRAX calculation should only be performed on patients in the osteopenia bone density category. Therefore, FRAX was not performed on this patient. 3. Treatment Recommendations: NOF guidelines recommend consideration for treatment in postmenopausal women and men age 50 and older presenting with the following: -A hip or vertebral (clinical or morphometric) fracture. -T-score less than or equal to -2.5 at the femoral neck or spine after appropriate evaluation to exclude secondary causes. -Low bone mass at the hip or spine and a 10-year fracture probability by FRAX of greater than or equal to 3% for hip fracture or greater than or equal to 20% for major osteoporotic fracture based on the [place] adapted WHO algorithm. 4. Other Recommendations: All treatment decisions require clinical judgment and consideration of individual patient factors, including patient preferences, comorbidities, previous drug use, risk factors not captured in the FRAX model (e.g. frailty, falls, vitamin D deficiency, increased bone turnover, interval significant decline in bone density) and possible under or overestimation of fracture risk by FRAX. Additional medical evaluation for secondary cause of low bone mineral density may be appropriate. FUTURE SCAN RECOMMENDATION: People with diagnosed cases of osteoporosis or at high risk for fracture should have regular bone mineral density tests. For patients eligible for Medicare, routine testing is allowed once every 2 years. The testing frequency can be increased to one year for patients who have rapidly progressing disease, those who are receiving or discontinuing medical therapy to restore bone mass, or have additional risk factors.
[2021-07-24 12:33] LABS: Alanine Aminotransferase 33 U/L (0-31); Albumin Level 4.3 g/dL (3.5-5.0); Alkaline Phosphatase 125 U/L (39-117); Anion Gap 11 (12-20); Aspartate Amino Transferase 38 U/L (5-31); Bilirubin Direct < 0.2 mg/dL (0.0-0.5); Bilirubin Total 0.4 mg/dL (0.0-1.0); Blood Urea Nitrogen 12 mg/dL (9-16); Calcium 9.9 mg/dL (8.4-10.2); Carbon Dioxide 30 mmol/L (22-29); Chloride 103 mmol/L (96-108); Estimated Glomerular Filt Rate > 60; Glucose Random 89 mg/dL (60-115); Phosphorus 4.1 mg/dL (2.7-4.5); Sodium 140 mmol/L (135-145); Total Protein 7.1 g/dL (6.5-8.0)
[2021-07-24 12:53] LABS: Free T4 (Free Thyroxine) 0.83 ng/dL (0.71-1.85)
[2021-07-24 12:54] LABS: Thyroid Stimulating Hormone 1.84 uIU/mL (0.32-4.0)
[2021-07-27 11:57] LABS: Prot Elec - Albumin 4.3 g/dL (3.8-4.8); Prot Elec - Alpha1 0.3 g/dL (0.2-0.3); Prot Elec - Alpha2 0.7 g/dL (0.5-0.9); Prot Elec - Beta 1 0.5 g/dL (0.4-0.6); Prot Elec - Beta 2 0.3 g/dL (0.2-0.5)
[2021-07-27 17:22] LABS: Calcium (PTHI) 9.7 mg/dL (8.6-10.4); PTHI 51 pg/mL (16-77)
[2021-07-28 14:17] LABS: Alkaline Phosphatase Bone 19.7 mcg/L (5.6-29.0)
== END 2021-07-24 10:28 | disposition home or self-care (01) ==
LOC: HO.MAMMO 10:27
PROVIDERS: Nurse Practitioner Family; PCP Nurse Practitioner; Visit Provider Internal Medicine
DX: Z13.820 Encounter for screening for osteoporosis (principal); M81.0 Age-related osteoporosis without current pathological fracture; E55.9 Vitamin D deficiency, unspecified; F17.200 Nicotine dependence, unspecified, uncomplicated; Z78.0 Asymptomatic menopausal state; Z79.899 Other long term (current) drug therapy; Z98.890 Other specified postprocedural states
CPT/HCPCS: 36415; 77081; 80053; 80076; 82248; 82306; 83970; 84075; 84100; 84165; 84439; 84443

== ENCOUNTER → 2021-10-12 09:38 | Outpatient (BNVA) | payer MEDICAID, SELFPAY | PROVIDERS: Visit Provider Internal Medicine | DX: Z13.89 Encounter for screening for other disorder (principal) ==

== ENCOUNTER 2021-12-04 12:50 | Outpatient (REF) | payer MEDICAID, SELFPAY ==
[2021-12-04 14:18] LABS: Alanine Aminotransferase 23 U/L (0-31); Albumin Level 4.5 g/dL (3.5-5.0); Alkaline Phosphatase 126 U/L (39-117); Anion Gap 13 (12-20); Aspartate Amino Transferase 29 U/L (5-31); Bilirubin Total 0.4 mg/dL (0.0-1.0); Blood Urea Nitrogen 10 mg/dL (9-16); Calcium 9.4 mg/dL (8.4-10.2); Carbon Dioxide 29 mmol/L (22-29); Chloride 104 mmol/L (96-108); Estimated Glomerular Filt Rate > 60; Glucose Random 76 mg/dL (60-115); Phosphorus 3.9 mg/dL (2.7-4.5); Potassium 3.7 mmol/L (3.3-5.1); Sodium 142 mmol/L (135-145); Total Protein 7.3 g/dL (6.5-8.0)
[2021-12-04 14:40] LABS: Vitamin D 25-OH Total 48.7 ng/mL (>30)
[2021-12-06 12:12] LABS: Calcium (PTHI) 9.4 mg/dL (8.6-10.4); PTHI 56 pg/mL (16-77)
[2021-12-08 13:56] LABS: Alkaline Phosphatase Bone 22.7 mcg/L (5.6-29.0)
== END 2021-12-04 12:51 | disposition home or self-care (01) ==
LOC: HO.10HDL 12:50
PROVIDERS: Visit Provider Internal Medicine
DX: M81.0 Age-related osteoporosis without current pathological fracture (principal); E55.9 Vitamin D deficiency, unspecified
CPT/HCPCS: 36415; 80053; 82306; 83970; 84075; 84100

== ENCOUNTER → 2021-12-07 12:43 | Outpatient (BNVA) | payer MEDICAID, SELFPAY | PROVIDERS: Visit Provider Internal Medicine | DX: M81.0 Age-related osteoporosis without current pathological fracture (principal); E55.9 Vitamin D deficiency, unspecified | CPT/HCPCS: 99212 ==

== ENCOUNTER 2022-03-11 15:13 | Outpatient (REF) | payer MEDICAID, SELFPAY ==
--- NOTE | ~2022-03-11 | XR_ITS ---
EXAMINATION: XR ABDOMEN COMPLETE CLINICAL INDICATION: Small bowel obstruction. COMPARISON: CT abdomen and pelvis dated 07/28/2021; KUB dated 04/12/2021. TECHNIQUE: 3 supine and upright views of the abdomen and pelvis are submitted. FINDINGS: No abnormal dilatation of large or small bowel loops is seen. There are multiple air-fluid levels noted on the upright view. There are anastomotic staple lines within the left abdomen and midline pelvis. No free intraperitoneal air is seen. There are pelvic phleboliths. The bones are unremarkable. XR/XR abdomen 3V IMPRESSION: Findings are consistent with a mild adynamic ileus. No free intraperitoneal air is noted. Recommend clinical correlation and radiographic follow-up to resolution.
[2022-03-11 16:31] LABS: Anion Gap 18 (12-20); Blood Urea Nitrogen 12 mg/dL (9-16); Calcium 9.8 mg/dL (8.4-10.2); Carbon Dioxide 27 mmol/L (22-29); Chloride 103 mmol/L (96-108); Estimated Glomerular Filt Rate > 60; Glucose Random 118 mg/dL (60-115); Sodium 143 mmol/L (135-145)
== END 2022-03-11 15:14 | disposition home or self-care (01) ==
LOC: HO.LAB 15:13
PROVIDERS: Absent Provider Registered Nurse; PCP Registered Nurse; Visit Provider Internal Medicine
DX: K59.00 Constipation, unspecified (principal); R10.84 Generalized abdominal pain
CPT/HCPCS: 36415; 74021; 80048

== ENCOUNTER 2022-04-17 23:45 | Emergency (ER) | payer MEDICAID, SELFPAY ==
[2022-04-17 23:46] VITALS: BP 118/66; PULSE 80; O2SAT 99
[2022-04-17 23:51] VITALS: BP 119/60; PULSE 91; RESP 22; TEMP 37.2; O2SAT 94; BMI 22.6
[2022-04-17] MEDS: Magnesium Sulfate/H2O 2 GM/50 ML PIGGYBACK IV (23:54)
--- NOTE | 2022-04-18 00:03 | ED_ITS ---
HPI - SOB/Dyspnea General Chief Complaint: Dyspnea Stated Complaint: sob Source: patient and EMS Mode of arrival: EMS Limitations: no limitations History of Present Illness HPI Narrative: patient comes to the emergency room via ambulance from home. Patient is coming in with an asthma exacerbation that was triggered by a cleaning the patient's granddaughters hamster cage. Patient states that she inhaled the paper filled with stool and urine from the hamster cage, the [place] triggered asthma exacerbation. dip EMS gave the patient 2 DuoNebs, 100 mg of Solu-Cortef. On arrival to the emergency room, patient mildly wheezing, with good air movement, speaking in full sentences, patient Complaining of anxiety,speaking in full sentences. Related Data Home Medications Medication Instructions Recorded Confirmed albuterol sulfate 90 mcg/actuation 2 puff inhalation Q4-6H PRN 04/30/20 10/12/21 aerosol inhaler (Ventolin HFA) Shortness Of Breath amitriptyline 25 mg tablet 25 mg PO BEDTIME 04/30/20 10/12/21 bupropion HCl 150 mg 24 hr tablet, 150 mg PO DAILY 04/30/20 12/07/21 extended release (Wellbutrin XL) lidocaine 5 % topical patch 2 patch topical DAILY 04/30/20 10/12/21 (Lidoderm) sennosides 8.6 mg tablet (senna) 17.2 mg PO BEDTIME PRN Constipation 04/30/20 10/12/21 trazodone 50 mg tablet 1 tab PO BEDTIME insomnia 03/22/21 10/12/21 fluticasone propionate 50 1 spray intranasal DAILY allergies 07/16/21 10/12/21 mcg/actuation nasal spray,suspension omeprazole 20 mg capsule,delayed 20 mg PO BID 07/16/21 12/07/21 release gabapentin 300 mg capsule 300 mg PO 12/07/21 12/07/21 Previous Rx's Medication Instructions Recorded docusate sodium 100 mg capsule 200 mg PO BEDTIME #60 caps 04/30/21 cholecalciferol (vitamin D3) 50 100 mcg PO DAILY 30 days #60 caps 10/12/21 mcg (2,000 unit) capsule alendronate 70 mg tablet (Fosamax) 70 mg PO QWEEK 4 weeks #4 tabs 12/07/21 albuterol sulfate 90 mcg/actuation 2 puff inhalation Q4-6H PRN 04/18/22 aerosol inhaler shortness of breath or wheezing #8.5 grams prednisone 50 mg tablet 50 mg PO DAILY #5 tabs 04/18/22 Allergies Allergy/AdvReac Type Severity Reaction Status Date / Time tramadol [TRAMADOL] Allergy Unknown NAUSEA & Verified 12/07/21 13:04 VOMITING Review of Systems Review of Systems: Constitutional : No Weight loss, No Fever, No Chills, No Night Sweats, No Fatigue, No Malaise ENT/Mouth : No Hearing loss, No Ear Pain, No Nasal Congestion, No Sinus Pain, No Hoarseness, No sore throat, No Rhinorrhea, No Swallowing Difficulty Eyes: No Eye Pain, No Swelling, No Redness, No Foreign Body, No Discharge, No Vision Changes Cardiovascular : No Chest Pain, No SOB, No Dyspnea on Exertion, No Orthopnea, No Edema, No Palpitations Respiratory : complaining of cough, wheezing, shortness of breath but improved with neb treatments Gastrointestinal : No Nausea, No Vomiting, No Diarrhea, No Constipation, No abdominal Pain, No Hematochezia, No Melena Genitourinary : no irregular bleeding, No Dysuria, No Urinary Frequency, No Hematuria, No Urinary Incontinence, No Urgency, No Flank Pain, No Urinary Flow Changes, No Hesitancy Musculoskeletal : No joint pain, No Myalgias, No Joint Swelling Skin : No Skin Lesions, No rash Neuro : No Weakness, No Numbness, No Paresthesias, No Loss of Consciousness, No Dizziness, No Headache Psych : No Anxiety/Panic, No Depression, No SI/HI/AH/VH, No Social Issues, Heme/Lymph: No Bruising, No Bleeding,No Lymphadenopathy Endocrine : No Polyuria, No Polydipsia, No Temperature Intolerance FOR[facility]LY [facility], [facility] Past Medical History Medical History Abdominal adhesions Abdominal pain Acid reflux Chronic constipation Colitis Fibromyalgia Incisional pain Lupus Migraines Moderate malnutrition Osteoarthritis Osteoporosis Pulmonary nodules Vitamin D deficiency Surgical History H/O elbow surgery History of esophagogastroduodenoscopy (EGD) History of hysterectomy with oophorectomy History of laparotomy (~03/25/21) History of removal of ovarian cyst Hx of appendectomy Hx of colonoscopy Hx of resection of small bowel Hx of tonsillectomy Status post exploratory laparotomy Family History Family History Father Fibromyalgia Osteoporosis Mother Stroke Social History Social History Household Members: Family Housing: Apartment Do you presently have visiting nurse or other home services: No Alcohol intake: never Patient Tobacco Use Status: Current everyday Tobacco user Tobacco use type: Cigarette Cigarette Packs Per Day: 1 Cigarettes Per Day: 20.0 Years Smoked: 23 Second Hand Smoke Exposure: No Advance Directives: No Advance Directives Information Provided: No Patient : No service: No Current occupational status: disabled Physical Exam Vital Signs: Vital Signs: Last Vital Signs Temp 98.9 F 04/18/22 02:02 Pulse 83 04/18/22 02:36 Resp 14 04/18/22 02:36 BP 105/51 L 04/18/22 02:02 Pulse Ox 92 04/18/22 02:02 O2 Del Method 04/18/22 02:02 BMI result Body Mass Index 22.6 Const: Other: Appearance: Alert. Oriented X3. No acute distress. Eyes: Pupils equal, round and reactive to light. ENT: Pharynx normal. Neck: Normal inspection. Neck supple. No lymph nodes noted. No crepitus CVS: Normal heart rate and rhythm. Pulses normal. Normal S1 and S2 Respiratory: No respiratory distress. oxygen saturation 97% on room air, speaking in full sentences, very mild wheezing bilaterally Abdomen: Soft and nontender. No rigidity. No distention. Skin: Skin warm and dry. Normal skin color. Normal skin turgor. Extremities: No lower extremity edema. No Lacerations. No Rash Neuro: Oriented X 3. No motor deficit. No sensory deficit. Moving all extremities. No slurred speech. CN 2 through 12 grossly intact Psych: calm, cooperative, very anxious Course Course Course Narrative: patient already received 2 DuoNebs and 100 mg of Solu-Cortef. Patient being given 10 mg of nebulized albuterol, And IV magnesium. 02:30, patient states that she feels much better, patient is still wheezing, we will go ahead and give her 1 more dose albuterol. Then we will reassess. Patient was ambulated, oxygen saturation remains above 97%, patient no longer wheezing. Patient ready for discharge. Medications Administered Discontinued Medications Generic Name Dose Route Start Last Admin Trade Name Freq PRN Reason Stop Dose Admin Albuterol Sulfate 10 mg 04/17/22 23:49 04/18/22 00:15 Albuterol Sulfate (0.083%) 2.5 Mg/3 Ml Vial.Neb INHALE 04/17/22 23:50 10 mg ONCE ONE Administration Albuterol Sulfate 10 mg 04/18/22 02:29 04/18/22 02:36 Albuterol Sulfate (0.083%) 2.5 Mg/3 Ml Vial.Neb INHALE 04/18/22 02:30 10 mg ONCE ONE Administration Magnesium Sulfate 2 gm in 50 mls @ 25 mls/hr 04/17/22 23:49 04/18/22 02:13 Magnesium Sulfate/H2o IV 04/18/22 01:48 Infused ONCE ONE Infusion Medical Decision Making Medical Decision Making Differential Diagnoses: Differential diagnosis (Asthma exacerbation, allergic reaction, COPD) Consideration of admission/observation: Consideration of Admission/Observation Discharge Plan Discharge Clinical Impression: Asthma with exacerbation Patient Disposition: Home, Self-Care Instructions: Asthma (ED) Additional Instructions: Please follow-up with your primary care physician tomorrow. If you have any worsening or new symptoms, please return to the emergency room or call 911 Prescriptions: New prednisone 50 mg tablet 50 mg PO DAILY Qty: 5 0RF albuterol sulfate 90 mcg/actuation HFA aerosol inhaler 2 puff inhalation Q4-6H PRN (Reason: shortness of breath or wheezing) Qty: 8.5 0RF No Action docusate sodium 100 mg capsule 200 mg PO BEDTIME Qty: 60 5RF trazodone 50 mg tablet 1 tab PO BEDTIME amitriptyline 25 mg tablet 25 mg PO BEDTIME lidocaine [Lidoderm] 5 % adhesive patch,medicated 2 patch topical DAILY Rx Instructions: leave on most painful area for up to 12 hrs sennosides [senna] 8.6 mg tablet 17.2 mg PO BEDTIME PRN (Reason: Constipation) bupropion HCl [Wellbutrin XL] 150 mg tablet extended release 24 hr 150 mg PO DAILY albuterol sulfate [Ventolin HFA] 90 mcg/actuation HFA aerosol inhaler 2 puff inhalation Q4-6H PRN (Reason: Shortness Of Breath) cholecalciferol (vitamin D3) 50 mcg (2,000 unit) capsule 100 mcg PO DAILY 30 Days Qty: 60 11RF gabapentin 300 mg capsule 300 mg PO omeprazole 20 mg capsule,delayed release(DR/EC) 20 mg PO BID fluticasone propionate 50 mcg/actuation spray,suspension 1 spray intranasal DAILY alendronate [Fosamax] 70 mg tablet 70 mg PO QWEEK 28 Days Qty: 4 11RF
[2022-04-18 00:13] VITALS: BP 99/46; PULSE 84; RESP 19; TEMP 37.2; O2SAT 97
[2022-04-18] MEDS: Albuterol Sulfate (0.083%) 2.5 MG/3 ML VIAL.NEB 10 MG INHALE ×2 (00:15→02:36)
[2022-04-18 00:18] VITALS: PULSE 86; RESP 22; O2SAT 96
[2022-04-18 02:02] VITALS: BP 105/51; PULSE 92; RESP 12; TEMP 37.2; O2SAT 92
--- NOTE | 2022-04-18 02:13 | PC.NURSE ---
Pt resting comfortably, respiratory effort is much more normal and pt fels better. Pt still coughing intermittently but overall condition has improved. Pt is on and off sleeping.
[2022-04-18 02:36] VITALS: PULSE 83; RESP 14; O2SAT 95
--- NOTE | 2022-04-18 03:34 | PC.NURSE ---
I ambulated the pt with O2 monitoring. When the pt initially stood up, it took minute or so to get her bearings. Once we started walking, pt got into a steady gait, no respiratory distress, and stated she felt good for the whole walk. Pt oxygen saturations stayed above 97% on room air.
[2022-04-18 04:10] VITALS: BP 109/44; PULSE 98; RESP 23; TEMP 36.8; O2SAT 96
[2022-04-18] MEDS: ondansetron HCL 4 MG/2 ML VIAL IVPUSH (04:57)
[2022-04-18] MEDS: Ibuprofen 600 MG TABLET PO (04:57)
== END 2022-04-18 05:04 | disposition home or self-care (01) ==
PROVIDERS: Emergency Provider Emergency Medicine
DX: J44.9 Chronic obstructive pulmonary disease, unspecified (principal); R06.02 Shortness of breath; F17.210 Nicotine dependence, cigarettes, uncomplicated; Z71.6 Tobacco abuse counseling; Z79.899 Other long term (current) drug therapy
CPT/HCPCS: 94640; 96365; 96367; 96375; 99285; J2405; J3475

== ENCOUNTER 2022-06-15 16:09 | Outpatient (REF) | payer MEDICAID, SELFPAY ==
[2022-06-15 17:37] LABS: Alanine Aminotransferase 18 U/L (0-31); Albumin Level 4.3 g/dL (3.5-5.0); Alkaline Phosphatase 107 U/L (39-117); Anion Gap 18 (12-20); Aspartate Amino Transferase 25 U/L (5-31); Bilirubin Total 0.2 mg/dL (0.0-1.0); Blood Urea Nitrogen 11 mg/dL (9-16); Calcium 9.6 mg/dL (8.4-10.2); Carbon Dioxide 24 mmol/L (22-29); Chloride 104 mmol/L (96-108); Estimated Glomerular Filt Rate > 60; Glucose Random 114 mg/dL (60-115); Phosphorus 4.1 mg/dL (2.7-4.5); Potassium 3.9 mmol/L (3.3-5.1); Sodium 142 mmol/L (135-145); Total Protein 6.9 g/dL (6.5-8.0)
[2022-06-15 17:54] LABS: Vitamin D 25-OH Total 23.4 ng/mL (>30)
[2022-06-16 11:49] LABS: Calcium (PTHI) 9.6 mg/dL (8.6-10.4); PTHI 69 pg/mL (16-77)
== END 2022-06-15 16:10 | disposition home or self-care (01) ==
LOC: HO.LAB 16:09
PROVIDERS: Visit Provider Internal Medicine
DX: M81.0 Age-related osteoporosis without current pathological fracture (principal); E55.9 Vitamin D deficiency, unspecified
CPT/HCPCS: 36415; 80053; 82306; 83970; 84100

== ENCOUNTER 2022-06-17 12:15 | Outpatient (REF) | payer MEDICAID, SELFPAY ==
[2022-06-17 13:39] LABS: Creatinine, mg/dL 110.52
[2022-06-17 16:04] LABS: Creatinine, 24Hr Urine 0.8 G/Day (1.0-2.0); Total Volume 24 Hour Urine 750 mL
[2022-06-19 16:44] LABS: Calcium, 24 Hr Urine 130 mg/24 h; Calcium/Creatinine Ratio 165 mg/g creat (30-275); Creatinine 24Hr Urine 0.79 g/24 h (0.50-2.15)
[2022-06-25 05:33] LABS: N-Telopeptide 70 (see note); NTXCreaRU 120 mg/dL (20-275)
== END 2022-06-17 12:16 | disposition home or self-care (01) ==
LOC: HO.LNP 12:15
PROVIDERS: Visit Provider Internal Medicine
DX: M81.0 Age-related osteoporosis without current pathological fracture (principal)
CPT/HCPCS: 82340; 82523; 82570

== ENCOUNTER → 2022-06-21 13:33 | Outpatient (BNVA) | payer MEDICAID, SELFPAY | PROVIDERS: PCP Registered Nurse; Visit Provider Internal Medicine | DX: M81.0 Age-related osteoporosis without current pathological fracture (principal); M79.7 Fibromyalgia; E55.9 Vitamin D deficiency, unspecified; K08.109 Complete loss of teeth, unspecified cause, unspecified class; Z90.79 Acquired absence of other genital organ(s); Z90.722 Acquired absence of ovaries, bilateral; Z78.0 Asymptomatic menopausal state; Z82.62 Family history of osteoporosis; Z79.52 Long term (current) use of systemic steroids; Z79.899 Other long term (current) drug therapy | CPT/HCPCS: 99212 ==

== ENCOUNTER → 2022-06-23 11:37 | Outpatient (BNVA) | payer MEDICAID, SELFPAY | PROVIDERS: PCP Registered Nurse; Visit Provider Surgery | DX: K59.00 Constipation, unspecified (principal) | CPT/HCPCS: 99212 ==

== ENCOUNTER 2022-07-29 12:28 | Outpatient (REF) | payer MEDICAID, SELFPAY ==
--- NOTE | ~2022-07-29 | XR_ITS ---
EXAMINATION: XR CHEST CLINICAL INFORMATION: Wheezing COMPARISON: 03/22/2021 TECHNIQUE: 2 views of the chest were obtained. FINDINGS: Mild diffuse peribronchial vascular opacities may reflect edema or small airways disease. No effusion or pneumothorax. Unchanged cardiomediastinal silhouette. XR/XR chest 2V IMPRESSION: Mild diffuse peribronchial vascular opacities may reflect edema or small airways disease.
== END 2022-07-29 12:29 | disposition home or self-care (01) ==
LOC: HO.XRAY 12:28
PROVIDERS: Visit Provider Family Medicine
DX: R06.2 Wheezing (principal)
CPT/HCPCS: 71046

== ENCOUNTER → 2022-10-29 13:33 | Outpatient (BNVA) | payer MEDICAID, SELFPAY | PROVIDERS: PCP Family Medicine; Visit Provider Hospitalist | DX: J45.41 Moderate persistent asthma with (acute) exacerbation (principal); T78.40XA Allergy, unspecified, initial encounter; Z72.0 Tobacco use | CPT/HCPCS: 99202 ==

== ENCOUNTER 2022-11-25 11:33 | Outpatient (REF) | payer MEDICAID, SELFPAY ==
[2022-11-25 13:37] LABS: MANUAL DIFF FLAG NO
[2022-11-25 13:53] LABS: Basophils Absolute Auto 0.1 X10*3/uL (0.0-0.2); Basophils Percent Auto 0.7 % (0-2); Eosinophils Absolute Auto 0.3 X10*3/uL (0.0-0.4); Eosinophils Percent Auto 3.4 % (0-4); Hematocrit 38.9 % (37.0-47.0); Imm Gran Abs Auto 0.03 X10*3/uL (0.00-0.03); Imm Gran Pct Auto 0.3 % (0.0-0.4); Lymphocytes Absolute Auto 2.2 X10*3/uL (1.2-4.9); Lymphocytes Percent Auto 25.1 % (20-40); Mean Corpuscular HGB Conc 33.4 g/dl (31.0-35.0); Mean Corpuscular Hemoglobin 32.4 pg (27.0-33.0); Mean Platelet Volume 11.3 fL (9.4-12.3); Monocytes Absolute Auto 0.7 X10*3/uL (0.1-1.2); Monocytes Percent Auto 8.1 % (2-11); Neutrophils Absolute Auto 5.4 x10*3/uL (2.0-8.3); Neutrophils Percent Auto 62.4 % (45-73); Platelet Count 288 X10*3/uL (160-400); Red Blood Count 4.01 X10*6/uL (4.20-5.50); Red Cell Distribution Width 12.7 % (11.0-16.0); White Blood Count 8.7 X10*3/uL (4.8-10.8)
[2022-11-25 14:47] LABS: Cholesterol 188 mg/dL; HDL Cholesterol 54 mg/dL; LDL Cholesterol Calculated 102 mg/dl; Triglycerides 163 mg/dL
[2022-11-25 14:53] LABS: Estimated Average Glucose 103 mg/dL; Hemoglobin A1c % 5.2 %
[2022-11-25 14:54] LABS: Alanine Aminotransferase 15 U/L (0-31); Alkaline Phosphatase 94 U/L (39-117); Anion Gap 11 (12-20); Aspartate Amino Transferase 21 U/L (5-31); Bilirubin Total 0.2 mg/dL (0.0-1.0); Blood Urea Nitrogen 10 mg/dL (9-16); Calcium 9.6 mg/dL (8.4-10.2); Carbon Dioxide 29 mmol/L (22-29); Chloride 104 mmol/L (96-108); Estimated Glomerular Filt Rate > 60; Glucose Random 80 mg/dL (60-115); Iron 99 mcg/dL (30-160); Percent Iron Saturation 33 % (15-50); Potassium 3.8 mmol/L (3.3-5.1); Sodium 140 mmol/L (135-145); Total Iron Binding Capacity 302 mcg/dL (228-428); Total Protein 6.7 g/dL (6.5-8.0); Unsaturated Iron Binding 203 ug/dL
[2022-11-25 14:57] LABS: Ferritin 50 ng/mL (10-250); TSH reflex Free T4 0.98 uIU/mL (0.32-4.0)
[2022-11-25 15:17] LABS: Reflex LDLD? No
[2022-11-25 15:20] LABS: Folate 11.2 ng/mL (> or = 4.0); Vitamin B12 885 pg/mL (200-900)
== END 2022-11-25 11:34 | disposition home or self-care (01) ==
LOC: HO.HHCL 11:33
PROVIDERS: Visit Provider Family Medicine
DX: R53.83 Other fatigue (principal)
CPT/HCPCS: 36415; 80053; 80061; 82607; 82728; 82746; 83036; 83540; 84134; 84443; 85025

== ENCOUNTER 2022-12-22 12:46 | Outpatient (AMB) | payer MEDICAID, SELFPAY ==
[2022-12-22 13:01] VITALS: BMI 22.3
--- NOTE | 2022-12-22 13:01 | A.OFFVIS_ITS ---
Intake Vital Signs 12/22/22 13:01 Height 5 ft 3 in Weight 126 lb BMI 22.3 Intake Visit Reasons: N/P left ring trigger finger/ req injection Intake Note: Leda 57 yr old left hand dominant uzbek speaking female, presents today for her left ring finger. States her finger locks often especially in the mornings. States her finger begin to lock about 7 months ago and has worsen since. This is painful for her to make a fist or do any type of lifting. Patient would like to discuss injection vs surgery. Allergies tramadol [TRAMADOL] Allergy (Unknown, Verified 12/22/22 13:01) NAUSEA & VOMITING HPI N/P left ring trigger finger/ req injection HPI Details 57-year-old left hand dominant female who presents to the office today for evaluation of left ring finger. She states she has worsening locking in her left ring finger x 7 months. She has pain with making a fist or with any type of lifting. Her pain is aggravated in the mornings. ON LICENSE OF [facility] Medical History (Updated 12/22/22 @ 13:31 by Julio Cook) Acid reflux Allergies Asthma Colitis Constipation Fibromyalgia History of Helicobacter pylori infection Lupus Migraines Moderate malnutrition Nicotine dependence, cigarettes, uncomplicated Osteoarthritis Osteoporosis (~2017) Premature menopause Pulmonary nodules Vitamin D deficiency Surgical History (Updated 12/21/22 @ 09:11 by Maxine Matos PA-C) History of appendectomy (~1982) History of colonoscopy History of elbow surgery (~2010) History of esophagogastroduodenoscopy (EGD) History of hysterectomy History of removal of ovarian cyst History of resection of small bowel (~2020) History of tonsillectomy Family History Father Fibromyalgia Osteoporosis Mother Stroke Social History (Updated 12/22/22 @ 13:02 by GALO Darling) Household Members: Family Housing: Apartment Do you presently have visiting nurse or other home services: No Alcohol intake: never Patient Tobacco Use Status: Current everyday Tobacco user Tobacco use type: Cigarette Cigarette Packs Per Day: 1 Cigarettes Per Day: 20.0 Years Smoked: 23 Second Hand Smoke Exposure: No service: No Current occupational status: disabled 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 Review of Systems Const All systems reviewed & are unremarkable except as noted in HPI and below Physical Exam Vital Signs: BMI result Body Mass Index 22.3 Const General: cooperative, healthy appearing, comfortable, no acute distress, well developed and alert Orientation/consciousness: patient oriented x3 HEENT Head: Yes normal to inspection, Yes normocephalic and Yes atraumatic Eyes General: appearance normal, both eyes and all related structures Resp Effort & Inspection: normal respiratory effort and able to speak in complete sentences Cardio Rate: regular rate Peripheral pulses: Peripheral pulses 2+ throughout GI Palpation (GI): Soft to palpation Skin Lesions: no lesions Rashes: no rashes Neuro General: patient oriented x3 Extrem Other: Left ring finger: Tender nodule along the A1 ba with active catching and locking. NVI. Assessment & Plan Assessment & Plan (1) Trigger finger, left ring finger: Code(s): M65.342 - Trigger finger, left ring finger Plan We discussed options which include conservative vs operative treatment. Since the patient has been symptomatic for several months and it is impacting their daily life, the decision was made to undergo Trigger release. We discussed risk, benefits and alternatives. Risk including but not limited to infection, stiffness, ongoing trigger or catching. She does understand all this and would like to proceed with left ring finger trigger release with Dr. Morales. She will be booked accordingly. Patient Instructions: Scribed for Lorrie Flood PA-C, by Julio Cook medical staff director, on 12/22/2022 at 1:00 PM EST. I, Lorrie Flood PA-C, have personally reviewed and agree with the information entered by the scribe. Coding Level of Care Code New Pt Level 4 (51682) Diagnoses Trigger finger, left ring finger M65.342
== END 2022-12-22 13:58 | disposition home or self-care (01) ==
PROVIDERS: PCP Family Medicine; Visit Provider Physician Assistant
DX: M65.342 Trigger finger, left ring finger (principal)
CPT/HCPCS: 99204

== ENCOUNTER → 2022-12-22 12:46 | Outpatient (BNVA) | payer MEDICAID, SELFPAY | PROVIDERS: PCP Family Medicine; Visit Provider Physician Assistant | DX: M65.342 Trigger finger, left ring finger (principal) | CPT/HCPCS: 99202; 99204 ==

== ENCOUNTER 2022-12-27 09:50 | Outpatient (AMB) | payer MEDICAID, SELFPAY ==
--- NOTE | 2022-12-27 09:51 | MHC.OFFVIS ---
Intake Intake Visit Reasons: F/U Osteoporosis, needs 30 minutes Intake Note: Osteoporosis follow up visit. 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: No Allergies tramadol [TRAMADOL] Allergy (Unknown, Verified 12/27/22 13:20) NAUSEA & VOMITING Medication List - Last Reconciled 12/27/22 by Madison Hatch, albuterol sulfate 90 mcg/actuation 2 puffs inhalation Q4-6H PRN albuterol sulfate 90 mcg/actuation (Ventolin HFA) 2 puffs inhalation Q4-6H PRN alendronate (Fosamax) 70 mg PO QWEEK 4 weeks amitriptyline 25 mg PO BEDTIME bupropion HCl (Wellbutrin XL) 150 mg PO DAILY cholecalciferol (vitamin D3) 50 mcg PO DAILY 30 days docusate sodium (Colace) 100 mg PO BID fluticasone furoate-vilanterol 200-25 mcg/dose (Breo Ellipta) 1 inh inhalation DAILY 30 days fluticasone propionate 50 mcg/actuation 1 spray intranasal DAILY lmtekqcdmsb-bewgcpqci-xujpvcau 200-62.5-25 mcg (Trelegy Ellipta) 1 inh inhalation DAILY 30 days gabapentin 300 mg PO ibuprofen 800 mg PO Q6H PRN lidocaine 5% (Lidoderm) 2 patches topical DAILY omeprazole 20 mg PO BID prednisone PO daily; Take 2 tabs daily x 5 days, then 1 tablet daily x 5 days 10 days sennosides (senna) 17.2 mg PO BEDTIME PRN trazodone 1 tab PO BEDTIME umeclidinium 62.5 mcg/actuation (Incruse Ellipta) 1 inh inhalation DAILY 30 days HPI HPI Comments History of Present Illness Details 57 YO Female with PMHx Fibromyalgia, and early menopause at the age of 29 secondary to TAHBSOO is seen in F/U for Osteoporosis. First diagnosed in Apr 2018 with her first screening DEXA. She was started on treatment with Fosamax by her PCP and took this until August 2018 (for 2 months). She was taking this incorrectly (with juice, and lying down to go back to sleep afterwards), and also had recently had multiple dental extractions while on the Fosamax. I recommended that she stop the Fosamax for a matter of months to allow time for her jaw to heal after her dental procedures. She then resumed Fosamax in April 2019. This was stopped approximately in March 2020 prior to a dental extraction. She has completed all dental work at this time. She then resumed the Fosamax 12/2021. She then stopped this approximately 1 month ago as she feels it is causing headaches. She did complete a full biochemical workup for secondary causes of Osteoporosis which was negative. Vitamin D was low and her dose was increased. No history of pathologic fracture or ONJ. Has 2-3 servings of dietary calcium per day in the form of 2-3 glassess of milk per day. Does not take a Calcium supplement. Takes 2000 IU of Vitamin D daily. Recently ran out of Calcium and Vitamin D. Is using daily PPI, but is not using anticoagulant, antiepileptic or glucocorticoid medication. Has not used these in the past. Does weight bearing exercise 4 days per week in the form of exercise bike and resistance training for 30 minutes at a time. Fracture history: She has never broken a bone. Height loss: Denies any height loss. DIAMOND CUTTER history: Menarche 15. Underwent TAHBSOO at the age of 29. She did use HRT FOR 2 years. History of Kidney stones: Denies personal history of kidney stones. Does have a family history of kidney stones. Family history of Osteoporosis or hip fracture. She has a family history of Osteoporosis in her mother, and a hip fracture in her grandmother. She complains of R arm pain today. DXA: 07/24/2021 FINDINGS: AP SPINE L1-L4: Current: BMD 0.782 g/cm2, Z-score -2.0, T-score -3.3, osteoporosis, 8.9% decrease from baseline (<5% change is not significant). Baseline: BMD 0.858 g/cm2. LEFT FEMUR, NECK: Current: BMD 0.764 g/cm2, Z-score -0.6, T-score -2.0, osteopenia. Baseline: BMD 0.788 g/cm2. LEFT FEMUR, TOTAL: Current: BMD 0.751 g/cm2, Z-score -1.0, T-score -2.0, osteopenia, 5.7% decrease from baseline (<5% change is not significant). Baseline: BMD 0.796 g/cm2. LEFT FOREARM RADIUS 33%: BMD 0.596 g/cm2, Z-score -2.8, T-score -3.2, osteoporosis. Prior:? Not previously measured. Labs: Laboratory Tests 06/15/22 06/15/22 06/17/22 16:29 16:29 06:05 Creatinine 0.67 Estimated GFR > 60 25-OH Vitamin D To gerber 23.4 PTH Intact 69 Calcium (PTH Intac t) 9.6 Ur 24 Hour Volume Ur Creatinine 24 H our 0.79 Ur Calcium 24 Hr 130 06/17/22 06:05 Creatinine Estimated GFR 25-OH Vitamin D To gerber PTH Intact Calcium (PTH Intac t) Ur 24 Hour Volume 750 Ur Creatinine 24 H our Ur Calcium 24 Hr PFSH Medical History Acid reflux Allergies Asthma Colitis Constipation Fibromyalgia History of Helicobacter pylori infection Lupus Migraines Moderate malnutrition Nicotine dependence, cigarettes, uncomplicated Osteoarthritis Osteoporosis (~2017) Premature menopause Pulmonary nodules Vitamin D deficiency Surgical History History of appendectomy (~1982) History of colonoscopy History of elbow surgery (~2010) History of esophagogastroduodenoscopy (EGD) History of hysterectomy History of removal of ovarian cyst History of resection of small bowel (~2020) History of tonsillectomy Family History Father Fibromyalgia Osteoporosis Mother Stroke Social History Household Members: Family Housing: Apartment Do you presently have visiting nurse or other home services: No Alcohol intake: never Patient Tobacco Use Status: Current everyday Tobacco user Tobacco use type: Cigarette Cigarette Packs Per Day: 1 Cigarettes Per Day: 20.0 Years Smoked: 23 Second Hand Smoke Exposure: No service: No Current occupational status: disabled 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 Assessment & Plan Assessment & Plan (1) Osteoporosis: Onset Date: ~2017 Comment: (Bone Dexa Lumbar T-score: -2.7 on 04/25/18; -3.3 on 07/24/21) Code(s): M81.0 - Age-related osteoporosis without current pathological fracture Qualifiers: Osteoporosis type: unspecified Presence of current pathological fracture: unspecified Qualified Code(s): M81.0 - Age-related osteoporosis without current pathological fracture Plan: Patient with Osteoporosis of the spine. Risk factor is early menopause after TAHBSOO at the age of 29. She completed 1 year of Fosamax from April 2019 - March 2020. This was stopped due to dental extractions. This was then resumed 12/2021. She stopped this approximately 1 month ago as she feels it is causing headaches, and she is unwilling to resume at this time. We discussed that without treatment her bones will likely weaken further and she will be even higher risk for a fracture. She verbalizes understanding but states she wishes to remain off treatment at this time. She will F/U with dr lamar in 6 weeks time to discuss alternatives. All of her questions were answered. She is in agreement with this plan of care. I spent 20 minutes in reviewing the record, seeing the patient and documenting in the medical record, including 5 minutes on the phone with the patient. Telehealth Telehealth Location of provider rendering services: practice address Location of patient: address on file Patient Identification confirmed using: Name, : Yes Telehealth method: voice only Patient verbally consented to treatment: Yes Patient verbally consented to billing insurance company: Yes Patient informed of any privacy concerns related to visit: Yes Coding Level of Care Code Tele Est Pt Level 3 (47596) Diagnoses Osteoporosis M81.0 Osteoporosis type: unspecified Presence of current pathological fracture: unspecified
== END 2022-12-27 14:42 | disposition home or self-care (01) ==
LOC: HO.ENCR 09:50
PROVIDERS: PCP Family Medicine; Visit Provider Internal Medicine
DX: M81.0 Age-related osteoporosis without current pathological fracture (principal)
CPT/HCPCS: 99213

== ENCOUNTER → 2022-12-27 09:50 | Outpatient (BNVA) | payer MEDICAID, SELFPAY | PROVIDERS: PCP Family Medicine; Visit Provider Internal Medicine ==

== ENCOUNTER 2022-12-30 14:49 | Outpatient (AMB) | payer MEDICAID, SELFPAY ==
--- NOTE | 2022-12-30 15:03 | MHC.OFFVIS ---
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 The patient states that for the last few months she has had increasing cough congested and chest tightness. She has also noticed some wheezing. The patient has had some difficulties with breathing. She has been want to get a nebulizer but she has not been able to do so. She denies any fevers or chills. She does bring productive mucus. It is yellowish in color. Denies any hemoptysis. The patient did have a chest x-ray demonstrating some peribronchial cuffing and some mosaic pattern suggesting small airways disease and bronchitis. Also some haziness suggesting pneumonitis. she also has had evidence of eosinophilia on her blood work. As far as exposures there is mold in the basement. Will go ahead and request allergy testing at this time. The patient does have significant wheezing. Will go ahead and treated for a COPD exacerbation with bronchitis. Patient will again get the blood work in the pulmonary function studies. Based on her smoking history with greater than 30 pack-year history of smoking will go ahead and recommend for the lung cancer screening program as well. 12/30/2022 the patient has a telephone visit today. the patient had regular visit today but she woke up sick with fevers and sore throat. She did test for COVID was negative. Denies any sick contacts. Denies any significant chest tightness or wheezing. She continues have a productive cough. this cough is chronic for her. This is likely related to her ongoing smoking. Patient likely has chronic bronchitis. She has been tolerating the Trelegy inhaler. The patient also has a rescue inhaler. As far as her tobacco cessation she has tried multiple agents. We did send her Chantix med is not clear she ended up taking the medication. She was supposed to undergo PFTs blood work however the patient did not do them. The patient was also supposed to have lung cancer screening, but, she states that she was never called. Therefore sent clear as far as her compliance to therapy. Will go ahead and treated for pharyngitis at this time. Patient should also recheck for COVID if she is not any better in 1-2 days. [facility] Medical History Acid reflux Allergies Asthma Colitis Constipation Fibromyalgia History of Helicobacter pylori infection Lupus Migraines Moderate malnutrition Nicotine dependence, cigarettes, uncomplicated Osteoarthritis Osteoporosis (~2017) Premature menopause Pulmonary nodules Vitamin D deficiency Surgical History History of appendectomy (~1982) History of colonoscopy History of elbow surgery (~2010) History of esophagogastroduodenoscopy (EGD) History of hysterectomy History of removal of ovarian cyst History of resection of small bowel (~2020) History of tonsillectomy Family History Father Fibromyalgia Osteoporosis Mother Stroke Social History Household Members: Family Housing: Apartment Do you presently have visiting nurse or other home services: No Alcohol intake: never Patient Tobacco Use Status: Current everyday Tobacco user Tobacco use type: Cigarette Cigarette Packs Per Day: 1 Cigarettes Per Day: 20.0 Years Smoked: 23 Second Hand Smoke Exposure: No service: No Current occupational status: disabled 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 Review of Systems Const Denies chills and Denies fever(s) Eyes Denies change in vision ENT Reports nasal congestion, Reports nasal discharge, Reports odynophagia and Reports sore throat Card Denies chest pain, Denies dyspnea and Denies dyspnea on exertion Resp Reports change in phlegm color, Reports chest congestion, Reports cough, Denies dyspnea, Denies dyspnea on exertion and Reports wheezing GI Denies hematochezia, Denies change in bowel habits, Reports constipation and Reports odynophagia Denies hematuria Musc Denies back pain and Denies limited range of motion Skin/Breast Denies rash Neuro Denies focal weakness and Denies convulsions Psych Denies depression and Denies mood swings Endo Reports no additional complaints Sean/Lymph Denies lymphadenopathy Aller/Immun Reports wheezing Physical Exam Vital Signs: BMI result Body Mass Index 22.8 Const General: cooperative Orientation/consciousness: patient oriented x3 Eyes General: appearance normal, both eyes and all related structures Neck Neck: Yes no lymphadenopathy Chest Chest palpation & inspection: normal inspection of the chest Resp Effort & Inspection: normal respiratory effort and able to speak in complete sentences Neuro General: patient oriented x3 Assessment & Plan Assessment & Plan (1) Pharyngitis: Code(s): J02.9 - Acute pharyngitis, unspecified (2) Asthma: Code(s): J45.909 - Unspecified asthma, uncomplicated Qualifiers: Asthma complication type: with acute exacerbation Asthma persistence: persistent Asthma severity: moderate Qualified Code(s): J45.41 - Moderate persistent asthma with (acute) exacerbation (3) Tobacco abuse: Code(s): Z72.0 - Tobacco use (4) Bronchitis: Code(s): J40 - Bronchitis, not specified as acute or chronic (5) Allergies: Code(s): T78.40XA - Allergy, unspecified, initial encounter Plan continue Breo continue Incruse KATERIN as needed Nebulizer provided LDCT program doxycycline tobacco cessation PFTs F/U6 months Medications: New doxycycline hyclate 100 mg PO BID 10 days 20 caps 0RF Telehealth Telehealth Location of provider rendering services: practice address Location of patient: address on file Patient Identification confirmed using: Name, : Yes Telehealth method: voice only Patient verbally consented to treatment: Yes Patient verbally consented to billing insurance company: Yes Patient informed of any privacy concerns related to visit: Yes Coding Level of Care Code Tele Est Pt Level 4 (70501) Diagnoses Pharyngitis J02.9 Asthma J45.41 Asthma complication type: with acute exacerbation Asthma persistence: persistent Asthma severity: moderate Tobacco abuse Z72.0 Bronchitis J40 Allergies T78.40XA Time Spent (min) 15
[2022-12-30 15:04] VITALS: BMI 22.8
== END 2022-12-30 15:19 | disposition home or self-care (01) ==
LOC: HO.HPS 14:49
PROVIDERS: PCP Family Medicine; Visit Provider Hospitalist
DX: J45.41 Moderate persistent asthma with (acute) exacerbation (principal); J02.9 Acute pharyngitis, unspecified; Z72.0 Tobacco use; J40 Bronchitis, not specified as acute or chronic; T78.40XA Allergy, unspecified, initial encounter
CPT/HCPCS: 99214

== ENCOUNTER → 2022-12-30 14:49 | Outpatient (BNVA) | payer MEDICAID, SELFPAY | PROVIDERS: PCP Family Medicine; Visit Provider Hospitalist ==

== ENCOUNTER 2023-03-14 00:36 | Inpatient (IN) | payer MEDICAID, SELFPAY ==
--- NOTE | ~2023-03-14 | CT_ITS ---
EXAMINATION: CT ABDOMEN AND PELVIS WITHOUT CONTRAST CLINICAL INFORMATION: Abdominal pain. COMPARISON: None available. TECHNIQUE: Multidetector volumetric imaging was performed from the superior aspect of the liver through the pubic symphysis. Sagittal and coronal reformatted images were obtained on the technologist's workstation. This CT examination was performed using dose optimization techniques as appropriate, variously including the following: *Automated exposure control *Adjustment of mA and/or kV according to patient size (this includes techniques or standardized protocols for targeted exams where dose is matched to indication/reason for exam; i.e. extremities or head) *Use of iterative reconstruction technique DLP: 332 mGy-cm FINDINGS: LUNG BASES: There is atelectatic change at the lung bases. LIVER, GALLBLADDER, AND BILIARY TREE: The liver is normal in size, shape, and attenuation. No focal hepatic lesion or biliary ductal dilatation is present. The gallbladder is unremarkable with no evidence of radiopaque gallstones, gallbladder wall thickening, or obvious pericholecystic inflammatory changes. PANCREAS: Unremarkable. SPLEEN: Unremarkable. ADRENAL GLANDS: Unremarkable. KIDNEYS AND URETERS: The kidneys are normal in size, shape, and attenuation. There is a 1 mm calculus midpole left kidney. No perinephric stranding. There are scattered left renal cysts measuring up to 2 cm upper pole left kidney. BLADDER: Unremarkable. GASTROINTESTINAL TRACT: There are proximal to mid dilated small bowel loops measuring up to 3.8 cm transitioning to decompress/normal caliber mid to distal small bowel in the anterior right abdomen near an apparent anastomosis. ABDOMINAL WALL: No significant hernia is appreciated. LYMPH NODES: Normal. VASCULAR: Unremarkable. PELVIC VISCERA: Unremarkable. OSSEOUS STRUCTURES: Unremarkable. CT/CT abdomen pelvis wo IV con IMPRESSION: Dilated proximal to mid small bowel loops transitioning to normal caliber/decompressed mid to distal small bowel and anterior right midabdomen consistent with early or partial small bowel obstruction. Nonobstructing 1 mm left renal calculus. Fleischner guidelines were utilized. Fleischner guidelines were followed.
--- NOTE | ~2023-03-14 | FL_ITS ---
EXAMINATION: FL SMALL BOWEL SERIES CLINICAL INFORMATION: Abdominal pain, nausea/vomiting. Partial bowel obstruction on CAT scan COMPARISON: CT scan 03/14/2020 TECHNIQUE: Following a stores laborer image of the abdomen, contrast was administered orally, and interval abdominal radiographs were performed to assess for contrast progression through the small bowel. Following contrast transit through the small bowel and into the colon. FINDINGS: Nutritional Services Cook image of the abdomen demonstrates a normal bowel gas pattern. There is atelectasis at the lung bases bilaterally. There are post surgical changes with a surgical staple line in the small bowel in the left mid abdomen and right lower quadrant. There is a delay in transit time of contrast material through the small bowel, with contrast present in the colon by 4 hours. Small bowel loops of normal caliber throughout the abdomen and pelvis. The jejunal and ileal fold patterns are normal, without evidence of abnormal thickening. The exam is limited due to the limited amount of contrast the patient was able to consume, however no fixed regions of luminal narrowing are seen to suggest stricturing. Linear atelectasis is noted in both lung bases. FL/FL small bowel follow through IMPRESSION: Delay in transit time of contrast through the small bowel, however contrast reaches the colon at 4 hours. The patient was vomiting, and refused to drink further contrast material, limiting the exam. No definite bowel obstruction or small bowel stricture.
[2023-03-14 00:47] VITALS: BP 148/90; PULSE 93; O2SAT 98; BMI 23.0
--- NOTE | 2023-03-14 00:51 | ED_ITS ---
HPI - Abdominal Pain General Chief Complaint: Abdominal Pain Stated Complaint: abd pain Time Seen by Provider: 03/14/23 00:42 Source: patient and institute scientist Mode of arrival: ambulatory Limitations: no limitations History of Present Illness HPI narrative: 58-year-old female with history of appendectomy, hysterectomy and small-bowel obstruction came in for evaluation of few hours of severe diffuse abdominal pain with nausea and vomiting, last bowel movement was about 24 hours ago patient is not passing gas. Related Data Home Medications Medication Instructions Recorded Confirmed albuterol sulfate 90 mcg/actuation 2 puff inhalation Q4-6H PRN 04/30/20 12/27/22 aerosol inhaler (Ventolin HFA) Shortness Of Breath amitriptyline 25 mg tablet 25 mg PO BEDTIME 04/30/20 12/27/22 bupropion HCl 150 mg 24 hr tablet, 150 mg PO DAILY 04/30/20 12/27/22 extended release (Wellbutrin XL) lidocaine 5 % topical patch 2 patch topical DAILY 04/30/20 12/27/22 (Lidoderm) sennosides 8.6 mg tablet (senna) 17.2 mg PO BEDTIME PRN Constipation 04/30/20 12/27/22 trazodone 50 mg tablet 1 tab PO BEDTIME insomnia 03/22/21 12/27/22 fluticasone propionate 50 1 spray intranasal DAILY allergies 07/16/21 12/27/22 mcg/actuation nasal spray,suspension omeprazole 20 mg capsule,delayed 20 mg PO BID 07/16/21 12/27/22 release gabapentin 300 mg capsule 300 mg PO 12/07/21 12/27/22 ibuprofen 800 mg tablet 800 mg PO Q6H PRN mild pain 12/27/22 12/27/22 Previous Rx's Medication Instructions Recorded albuterol sulfate 90 mcg/actuation 2 puff inhalation Q4-6H PRN 04/18/22 aerosol inhaler shortness of breath or wheezing #8.5 grams cholecalciferol (vitamin D3) 50 50 mcg PO DAILY 30 days #30 caps 06/21/22 mcg (2,000 unit) capsule docusate sodium 100 mg capsule 100 mg PO BID #60 caps 06/23/22 (Colace) fluticasone fur. 200 mcg-umeclid 1 inh inhalation DAILY 30 days #60 10/29/22 62.5 mcg-vilant 25 mcg ea inhalat.powder (Trelegy Ellipta) alendronate 70 mg tablet (Fosamax) 70 mg PO QWEEK 4 weeks #4 tabs 11/05/22 fluticasone furoate 200 1 inh inhalation DAILY 30 days #60 12/27/22 mcg-vilanterol 25 mcg/dose ea inhalation powder (Breo Ellipta) umeclidinium 62.5 mcg/actuation 1 inh inhalation DAILY 30 days #30 12/27/22 blister powder for inhalation ea (Incruse Ellipta) doxycycline hyclate 100 mg capsule 100 mg PO BID 10 days #20 caps 12/30/22 Allergies Allergy/AdvReac Type Severity Reaction Status Date / Time tramadol [TRAMADOL] Allergy Unknown NAUSEA & Verified 03/14/23 00:50 VOMITING acetaminophen [From Tylenol] Allergy Nausea and Verified 03/14/23 00:50 Vomiting Review of Systems Review of Systems all other systems are reviewed and are negative Constitutional: Reports as per HPI and Reports no additional constitutional complaints Eyes: Reports as per HPI and Reports no additional eye complaints Reports system reviewed and no additional complaints, except as documented Cardiovascular: Reports as per HPI and Reports no additional cardiovascular complaints Respiratory: Reports as per HPI and Reports no additional respiratory complaints Gastrointestinal: Reports as per HPI and Reports no additional gastrointestinal complaints Genitourinary: Reports no additional female genitourinary complaints Musculoskeletal: Reports no additional musculoskeletal complaints Skin/Breast: Reports system reviewed and no additional complaints, except as docu Psychiatric: Reports no additional psychiatric complaints Endocrine: Reports no additional endocrine complaints Hematologic/Lymphatic: Reports no additional hematologic/lymphatic complaints Allergic/Immunologic: Reports no additional allergic/immunologic complaints Reports system reviewed and no additional complaints, except as documented and Reports Abnormal speech present [facility] Past Medical History Medical History Acid reflux Allergies Asthma Colitis Constipation Fibromyalgia History of Helicobacter pylori infection Lupus Migraines Moderate malnutrition Nicotine dependence, cigarettes, uncomplicated Osteoarthritis Osteoporosis (~2018) Premature menopause Pulmonary nodules Vitamin D deficiency Surgical History History of appendectomy (~1982) History of colonoscopy History of elbow surgery (~2010) History of esophagogastroduodenoscopy (EGD) History of hysterectomy History of removal of ovarian cyst History of resection of small bowel (~2020) History of tonsillectomy Family History Family History Father Fibromyalgia Osteoporosis Mother Stroke Social History Social History Household Members: Family Housing: Apartment Do you presently have visiting nurse or other home services: No Alcohol intake: never Patient Tobacco Use Status: Current everyday Tobacco user Tobacco use type: Cigarette Cigarette Packs Per Day: 1 Cigarettes Per Day: 20.0 Years Smoked: 23 Smoked in Last 30 Days: Yes Second Hand Smoke Exposure: No Use of substances other than those prescribed or required for medical reasons: No Advance Directives: No Advance Directives Information Provided: No service: No Current occupational status: disabled 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 Physical Exam ED Vital Signs: Vital Signs - 24 hr 03/14/23 00:54 Temperature 98.3 F Pulse Rate 79 Respiratory Rate 18 Blood Pressure 116/72 Pulse Oximetry 98 Oxygen Delivery Method Room Air BMI result Body Mass Index 23.0 Course Reevaluation(s) Reevaluation #1: patient still having nausea and vomiting in the emergency department, leukocytosis, CT is confirming partial versus early small-bowel obstruction, the case was reviewed with Dr. Tolentino who will admit the patient. Patient at this moment declining NG tube I explained to the patient the benefit of having NG tube and patient is still declining stated that she may consider it later if she does not have a bowel movement. Time: 04:37 Medical Decision Making Differential Diagnosis Differential Diagnoses: The differential diagnosis associated with the presentation includes ( Small-bowel obstruction, ileus, gastroenteritis, colitis, perforation, electrolyte abnormality, severe anemia.) Admission/Observation Consideration of admission/observation: Escalation of care including admission/observation considered Consult Healthcare Provider Management of the patient was discussed with: Vessel Specialist ( Dr. Tolentino.) Lab Data MDM Lab Attestation statement: I reviewed the patient's lab results. 03/14/23 00:54 03/14/23 00:54 Labs: Lab Results 03/14/23 03/14/23 03/14/23 Range/Units 00:54 02:16 02:23 WBC 17.4 H (4.8-10.8) X10*3/uL RBC 4.74 (4.20-5.50) X10*6/uL Hgb 15.2 (12.0-16.0) g/dl Hct 44.4 (37.0-47.0) % MCV 93.7 (80.0-98.0) fL MCH 32.1 (27.0-33.0) pg MCHC 34.2 (31.0-35.0) g/dl RDW 13.1 (11.0-16.0) % Plt Count 345 (160-400) X10*3/uL MPV 10.0 (9.4-12.3) fL Immature Gran % (Auto) 0.5 H (0.0-0.4) % Neut % (Auto) 81.2 H (45-73) % Lymph % (Auto) 11.5 L (20-40) % [place] % (Auto) 5.3 (2-11) % Eos % (Auto) 1.1 (0-4) % Baso % (Auto) 0.4 (0-2) % Lymph # (Auto) 2.0 (1.2-4.9) X10*3/uL [place] # (Auto) 0.9 (0.1-1.2) X10*3/uL Eos # (Auto) 0.2 (0.0-0.4) X10*3/uL Baso # (Auto) 0.1 (0.0-0.2) X10*3/uL Abs Immat Gran (auto) 0.09 H (0.00-0.03) X10*3/uL Absolute Neuts (auto) 14.1 H (2.0-8.3) x10*3/uL Absolute Nucleated RBC 0.000 (0.0-0.012) X10*3/uL Nucleated RBC % (auto) 0.0 (0.0-0.2) /100WBC Sodium 145 (135-145) mmol/L Potassium 3.7 (3.3-5.1) mmol/L Chloride 103 (96-108) mmol/L Carbon Dioxide 31 H (22-29) mmol/L Anion Gap 15 (12-20) BUN 14 (9-16) mg/dL Creatinine 0.79 (0.5-1.4) mg/dL Estim Creat Clear Calc 65.7 Estimated GFR > 60 Random Glucose 146 H (60-115) mg/dL Lactic Acid 0.9 (0.5-2.0) mmol/L Calcium 10.4 H D (8.4-10.2) mg/dL Total Bilirubin 0.3 0.3 (0.0-1.0) mg/dL Direct Bilirubin 0.1 (0.0-0.5) mg/dL AST 25 24 (5-31) U/L ALT 15 15 (0-31) U/L Alkaline Phosphatase 103 93 (39-117) U/L Troponin I High Sens < 2.7 (<3.5-17.0) ng/L Total Protein 8.0 7.1 (6.5-8.0) g/dL Albumin 4.7 4.1 (3.5-5.0) g/dL Lipase 10 (8-78) U/L Influenza Type A (PCR) NEGATIVE (Negative) Influenza Type B (PCR) NEGATIVE (Negative) RSV RNA Qual (PCR) NEGATIVE (Negative) SARS-CoV-2 RNA (RT-PCR) NEGATIVE (Negative) Independent Interpretation I performed an independent interpretation of an: CT Scan ( small-bowel obstruction : Dilated proximal to mid small bowel loops transitioning to normal caliber/decompressed mid to distal small bowel and anterior right midabdomen consistent with early or partial small bowel obstruction. Nonobstructing 1 mm left renal calculus. ) Radiology Impression Discussion of test interpretation with radiology: I have reviewed the radiologist's reading. Chronic Conditions Patient?s care impacted by: Other ( previous surgeries) Medications Administered Discontinued Medications Generic Name Dose Route Start Last Admin Trade Name Fabianoq PRN Reason Stop Dose Admin Hydromorphone HCl 1 mg 03/14/23 01:58 03/14/23 02:03 Hydromorphone Hcl 1 Mg/Ml Syringe IVPUSH 03/14/23 01:59 1 mg ONCE ONE Administration Protocol Sodium Chloride 1,000 mls @ 999 mls/hr 03/14/23 00:55 03/14/23 02:44 Ns IV 03/14/23 01:55 Infused .Q1H1M ONE Infusion Morphine Sulfate 1 mg 03/14/23 00:55 03/14/23 01:05 Morphine Sulfate 2 Mg/Ml Cartridge IVPUSH 03/14/23 00:56 1 mg ONCE ONE Administration Protocol Ondansetron HCl 4 mg 03/14/23 01:09 03/14/23 01:11 Ondansetron Hcl 4 Mg/2 Ml Vial IVPUSH 03/14/23 01:10 4 mg ONCE ONE Administration Discharge Plan Discharge Clinical Impression: Small bowel obstruction Patient Disposition: Admitted As Inpatient Prescriptions: No Action alendronate [Fosamax] 70 mg tablet 70 mg PO QWEEK 28 Days Qty: 4 11RF fluticasone furoate-vilanterol [Breo Ellipta] 200-25 mcg/dose blister with device 1 inh inhalation DAILY 30 Days Qty: 60 11RF Incruse Ellipta 62.5 mcg/actuation blister with device 1 inh inhalation DAILY 30 Days Qty: 30 11RF albuterol sulfate 90 mcg/actuation HFA aerosol inhaler 2 puff inhalation Q4-6H PRN (Reason: shortness of breath or wheezing) Qty: 8.5 0RF trazodone 50 mg tablet 1 tab PO BEDTIME amitriptyline 25 mg tablet 25 mg PO BEDTIME lidocaine [Lidoderm] 5 % adhesive patch,medicated 2 patch topical DAILY Rx Instructions: leave on most painful area for up to 12 hrs sennosides [senna] 8.6 mg tablet 17.2 mg PO BEDTIME PRN (Reason: Constipation) bupropion HCl [Wellbutrin XL] 150 mg tablet extended release 24 hr 150 mg PO DAILY albuterol sulfate [Ventolin HFA] 90 mcg/actuation HFA aerosol inhaler 2 puff inhalation Q4-6H PRN (Reason: Shortness Of Breath) docusate sodium [Colace] 100 mg capsule 100 mg PO BID Qty: 60 3RF gabapentin 300 mg capsule 300 mg PO omeprazole 20 mg capsule,delayed release(DR/EC) 20 mg PO BID fluticasone propionate 50 mcg/actuation spray,suspension 1 spray intranasal DAILY cholecalciferol (vitamin D3) 50 mcg (2,000 unit) capsule 50 mcg PO DAILY 30 Days Qty: 30 11RF ibuprofen 800 mg tablet 800 mg PO Q6H PRN (Reason: mild pain) Trelegy Ellipta 200-62.5-25 mcg blister with device 1 inh inhalation DAILY 30 Days Qty: 60 12RF doxycycline hyclate 100 mg capsule 100 mg PO BID 10 Days Qty: 20 0RF
[2023-03-14 00:54] VITALS: BP 116/72; PULSE 79; RESP 18; TEMP 36.8; O2SAT 98
[2023-03-14 01:02] LABS: MANUAL DIFF FLAG NO
[2023-03-14 01:04] LABS: Basophils Absolute Auto 0.1 X10*3/uL (0.0-0.2); Basophils Percent Auto 0.4 % (0-2); Eosinophils Absolute Auto 0.2 X10*3/uL (0.0-0.4); Eosinophils Percent Auto 1.1 % (0-4); Hematocrit 44.4 % (37.0-47.0); Hemoglobin 15.2 g/dl (12.0-16.0); Imm Gran Abs Auto 0.09 X10*3/uL (0.00-0.03); Imm Gran Pct Auto 0.5 % (0.0-0.4); Lymphocytes Percent Auto 11.5 % (20-40); Mean Corpuscular HGB Conc 34.2 g/dl (31.0-35.0); Mean Corpuscular Hemoglobin 32.1 pg (27.0-33.0); Mean Corpuscular Volume 93.7 fL (80.0-98.0); Monocytes Absolute Auto 0.9 X10*3/uL (0.1-1.2); Monocytes Percent Auto 5.3 % (2-11); Neutrophils Absolute Auto 14.1 x10*3/uL (2.0-8.3); Neutrophils Percent Auto 81.2 % (45-73); Platelet Count 345 X10*3/uL (160-400); Red Blood Count 4.74 X10*6/uL (4.20-5.50); Red Cell Distribution Width 13.1 % (11.0-16.0); White Blood Count 17.4 X10*3/uL (4.8-10.8)
[2023-03-14] MEDS: 0.9 % Sodium Chloride 1,000 ML 999 ML IV (01:05)
[2023-03-14] MEDS: Morphine Sulfate 2 MG/ML CARTRIDGE 1 MG IVPUSH (01:05)
[2023-03-14] MEDS: ondansetron HCL 4 MG/2 ML VIAL IVPUSH ×2 (01:11→06:43)
[2023-03-14 01:17] LABS: Alanine Aminotransferase 15 U/L (0-31); Albumin Level 4.7 g/dL (3.5-5.0); Alkaline Phosphatase 103 U/L (39-117); Anion Gap 15 (12-20); Aspartate Amino Transferase 25 U/L (5-31); Bilirubin Total 0.3 mg/dL (0.0-1.0); Blood Urea Nitrogen 14 mg/dL (9-16); Calcium 10.4 mg/dL (8.4-10.2); Carbon Dioxide 31 mmol/L (22-29); Chloride 103 mmol/L (96-108); Creatinine Clr Calc Pharmacy 65.7; Estimated Glomerular Filt Rate > 60; Glucose Random 146 mg/dL (60-115); Potassium 3.7 mmol/L (3.3-5.1); Sodium 145 mmol/L (135-145)
--- NOTE | 2023-03-14 01:21 | PC.NURSE ---
Pt medicated per Mar.
[2023-03-14 01:23] LABS: Troponin-I High Sensitivity < 2.7 ng/L (<3.5-17.0)
[2023-03-14 01:41] LABS: Influenza A PCR NEGATIVE (Negative); Influenza B PCR NEGATIVE (Negative); Resp Syncy Virus RNA Qual PCR NEGATIVE (Negative); SARS COV2 PCR INHOUSE NEGATIVE (Negative)
[2023-03-14] MEDS: HYDROmorphone HCl 1 MG/ML SYRINGE IVPUSH (02:03)
--- NOTE | 2023-03-14 02:06 | PC.NURSE ---
Medicated per Mar, for pain management, awaiting Ct Scan results.
[2023-03-14 02:33] LABS: Lactic Acid 0.9 mmol/L (0.5-2.0)
--- NOTE | 2023-03-14 02:42 | PC.NURSE ---
pt medicated for pain management, pt sleeping in bed.
[2023-03-14 02:48] LABS: Alanine Aminotransferase 15 U/L (0-31); Albumin Level 4.1 g/dL (3.5-5.0); Alkaline Phosphatase 93 U/L (39-117); Aspartate Amino Transferase 24 U/L (5-31); Bilirubin Direct 0.1 mg/dL (0.0-0.5); Bilirubin Total 0.3 mg/dL (0.0-1.0); Lipase 10 U/L (8-78); Total Protein 7.1 g/dL (6.5-8.0)
[2023-03-14] MEDS: Enoxaparin Sodium 40 MG/0.4 ML SYRINGE SUBCUT (05:16)
--- NOTE | 2023-03-14 05:22 | PC.NURSE ---
pt refusing NG-tube, Notified Dr. Bonilla, provider into to discuss the importance of NG, tube, pt refusing, pt requesting to [facility] to surgeon. 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
--- NOTE | 2023-03-14 05:24 | PC.NURSE ---
pt ambulated to rest room with a steady agate.
[2023-03-14] MEDS: Dextrose 5 % and Lactated Ring 1,000 ML 125 ML IVCONT ×3 (05:27→20:37)
--- NOTE | 2023-03-14 05:30 | PC.NURSE ---
pt medicated per Mar, pt reports having small bowel movement, pt reports passing gas. pt awaiting to see surgeon.
[2023-03-14 05:46] VITALS: BP 115/54; PULSE 78; RESP 17; TEMP 36.9; O2SAT 99
[2023-03-14 06:01] LABS: Anion Gap 12 (12-20); Blood Urea Nitrogen 13 mg/dL (9-16); Calcium 8.9 mg/dL (8.4-10.2); Carbon Dioxide 28 mmol/L (22-29); Chloride 110 mmol/L (96-108); Creatinine Clr Calc Pharmacy 75.2; Estimated Glomerular Filt Rate > 60; Glucose Random 135 mg/dL (60-115); Potassium 3.9 mmol/L (3.3-5.1); Sodium 146 mmol/L (135-145)
[2023-03-14] MEDS: HYDROmorphone HCl 0.5 MG/0.5 ML SYRINGE IVPUSH ×5 (06:43→21:05)
--- NOTE | 2023-03-14 06:46 | PC.NURSE ---
Medicated per mar.
[2023-03-14 07:28] VITALS: BP 103/55; PULSE 72; RESP 16; TEMP 36.8; O2SAT 99
--- NOTE | 2023-03-14 08:54 | P.HPGS_ITS ---
History of Present Illness History of Present Illness Date of Service: 03/14/23 Chief complaint: Small Bowel Obstruction Narrative: Leda Curtis is a 58 year old female with PMH of GERD, asthma, constipation who presented with complaints of abdominal pain, nausea and vomiting. Patient has history of SBOs requiring laparotomy, lysis of adhesions, and two small-bowel resections in 2020. She reports on Tuesday, she drank half of a laxative supplement bottle. Tuesday morning, she had a lot of liquid stools. Later in the day she was at a friends house when developed lower abdominal pain. It was initially mild in nature. She ate lunch and the pain worsened and spread to her entire abdomen associated with bloating. She went home and she developed nausea and vomiting. Due to the severity of her pain, she called an ambulance. In the ED, work up included CBC, BMP, LFTs which were significant for a leukocytosis. CT scan was performed which showed proximal to mid dilated small bowel loops with transition in mid to distal small bowel in the anterior right abdomen near an apparent anastomosis. This morning, she feels a little better with less abdominal pain. She is passing flatus. She reports no BM since the liquid stools Tuesday morning. Her last colonoscopy was in 07/27 and was significant for diverticulosis and hemorrhoids. She does not want the NGT. Review of Systems Constitutional: Constitutional: Denies chills and Denies fever(s) ENT: Denies dizziness Cardiovascular: Cardiovascular: Denies chest pain and Denies dyspnea Respiratory: Respiratory: Denies dyspnea Gastrointestinal: Gastrointestinal: Reports as per HPI, Denies melena, Denies hematochezia and Denies hematemesis Genitourinary: Genitourinary: Denies hematuria and Denies dysuria Integumentary/Breasts: Skin/Breast: Denies jaundice Neurologic: Denies dizziness PMFSH Past Medical History Medical History Acid reflux Allergies Asthma Colitis Constipation Fibromyalgia History of Helicobacter pylori infection Lupus Migraines Moderate malnutrition Nicotine dependence, cigarettes, uncomplicated Osteoarthritis Osteoporosis (~2018) Premature menopause Pulmonary nodules Vitamin D deficiency Family History Family History Father Fibromyalgia Osteoporosis Mother Stroke Surgical History Surgical History History of appendectomy (~1982) History of colonoscopy History of elbow surgery (~2010) History of esophagogastroduodenoscopy (EGD) History of hysterectomy History of removal of ovarian cyst History of resection of small bowel (~2020) History of tonsillectomy Social History Social History Household Members: Family Housing: Apartment Do you presently have visiting nurse or other home services: No Alcohol intake: never Patient Tobacco Use Status: Current everyday Tobacco user Tobacco use type: Cigarette Cigarette Packs Per Day: 1 Cigarettes Per Day: 20.0 Years Smoked: 23 Smoked in Last 30 Days: Yes Patient Interested in Nicotine Replacement: No Second Hand Smoke Exposure: No Use of substances other than those prescribed or required for medical reasons: No Have you been hit, kicked, punched, or otherwise hurt by someone within the past year? If so, by whom?: No Do you feel safe in your current relationship?: No Current Relationship Is there a partner from a previous relationship who is making you feel unsafe now?: No Are you made to feel afraid or neglected: No Advance Directives: No Advance Directives Information Provided: No Do you have thoughts of harming others: None Do you have a plan to hurt others: No Plan Recently lost weight without trying: Yes How much weight loss: 2-13 pounds Eating poorly because of decreased appetite: Yes Nutrition screen score: 4 Nutrition Risks: No Nutritional Risk Patient : No : No Poor oral hygiene: No service: No Current occupational status: disabled 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 Meds Allergies Allergy/AdvReac Type Severity Reaction Status Date / Time tramadol [TRAMADOL] Allergy Unknown NAUSEA & Verified 03/14/23 00:50 VOMITING acetaminophen [From Tylenol] Allergy Nausea and Verified 03/14/23 00:50 Vomiting Active Medications: Current Medications Enoxaparin Sodium (Enoxaparin Sodium 40 Mg/0.4 Ml Syringe) 40 mg SUBCUT Q24H NASH Last Admin: 03/14/23 05:16 Dose: 40 mg Hydromorphone HCl (Hydromorphone Hcl 0.5 Mg/0.5 Ml Syringe) 0.5 mg IVPUSH Q3H PRN; Protocol PRN Reason: Pain, Severe (Pain Scale 7-10) Last Admin: 03/14/23 06:43 Dose: 0.5 mg Dextrose/Lactated Ringer's (D5lr) 1,000 mls @ 125 mls/hr IVCONT .Q8H [facility] Last Admin: 03/14/23 05:27 Dose: 125 mls/hr Ondansetron HCl (Ondansetron Hcl 4 Mg/2 Ml Vial) 4 mg IVPUSH QID PRN PRN Reason: Nausea Last Admin: 03/14/23 06:43 Dose: 4 mg Sodium Chloride (0.9 % Sodium Chloride Flush 3 Ml Syringe) 3 ml IVFLUSH QSHIFT [facility] Last Admin: 03/14/23 08:26 Dose: Not Given Zolpidem Tartrate (Zolpidem Tartrate 5 Mg Tablet) 5 mg PO BEDTIME PRN PRN Reason: Insomnia Home Medications Medication Instructions Recorded Confirmed Last Taken Type albuterol sulfate 90 mcg/actuation 2 puff inhalation Q4-6H PRN 04/30/20 03/14/23 Unknown History aerosol inhaler (Ventolin HFA) Shortness Of Breath amitriptyline 25 mg tablet 25 mg PO BEDTIME 04/30/20 03/14/23 Unknown History lidocaine 5 % topical patch 2 patch topical DAILY 04/30/20 03/14/23 Unknown H istory (Lidoderm) fluticasone propionate 50 1 spray intranasal DAILY allergies 07/16/21 03/14/23 Unknown History mcg/actuation nasal spray,suspension omeprazole 20 mg capsule,delayed 20 mg PO BID 07/16/21 03/14/23 Unknown History release gabapentin 300 mg capsule 600 mg PO QAM 12/07/21 03/14/23 03/13/23 History albuterol sulfate 2.5 mg/3 mL 2.5 mg inhalation Q4H PRN Dyspnea 03/14/23 03/14/23 Unknown History (0.083 %) solution for nebulization Physical Exam Vital Signs: Vital Signs: Last Vital Signs Temp 98.3 F 03/14/23 07:28 Pulse 72 03/14/23 07:28 Resp 16 03/14/23 07:28 BP 103/55 L 03/14/23 07:28 Pulse Ox 99 03/14/23 07:28 O2 Del Method Room Air 03/14/23 07:28 BMI result Body Mass Index 23.0 Const: General: comfortable, no acute distress and alert Orientation/consciousness: patient oriented x3 HEENT: Head: Yes normocephalic Resp: Effort & Inspection: normal respiratory effort Cardio: Rate: regular rate GI: Inspection: Yes distended and Yes scar (midline ) Palpation (GI): Soft to palpation, Tenderness to palpation present (GI) (mild diffuse tenderness, most significant at lower abdomen), no guarding and not rigid Skin: General skin exam: no rashes or lesions noted Neuro: General: patient oriented x3 and moves all extremities Results Results Labs: Short CBC 03/14/23 Range/Units 00:54 WBC 17.4 H (4.8-10.8) X10*3/uL Hgb 15.2 (12.0-16.0) g/dl Hct 44.4 (37.0-47.0) % Plt Count 345 (160-400) X10*3/uL BMP 03/14/23 03/14/23 00:54 05:16 Sodium 145 146 H Potassium 3.7 3.9 Chloride 103 110 H Carbon Dioxide 31 H 28 BUN 14 13 Creatinine 0.79 0.69 Calcium 10.4 H D 8.9 D Liver Function 03/14/23 03/14/23 Range/Units 00:54 02:23 Total Bilirubin 0.3 0.3 (0.0-1.0) mg/dL Direct Bilirubin 0.1 (0.0-0.5) mg/dL AST 25 24 (5-31) U/L ALT 15 15 (0-31) U/L Alkaline Phosphatase 103 93 (39-117) U/L Albumin 4.7 4.1 (3.5-5.0) g/dL Abdomen CT scan report/results: report reviewed and image reviewed Assessment and Plan (1) Small bowel obstruction: Status: Acute Plan 58 year old female with hx of SBOs requiring enterolysis and small bowel resection presenting with abdominal pain, nausea and vomiting with CT scan showing dilated bowel loops. She will be admitted to the surgical service for further treatment of the SBO. She is nontoxic appearing with a benign abdominal exam. Will continue supportive measures for now including bowel rest and IVF, pain control. Will hold off on NGT unless develops nausea/vomiting again. Further plan dependent on clinical course. Patient comfortable with plan. Quality Stroke Does the patient have a stroke diagnosis?: No VTE Prior VTE?: No VTE Risk Level:: Surgical - moderate VTE Device Contraindication: N/A - Device Ordered VTE Drug Contraindication: N/A - Med Ordered Procedures Date of Service Date of Service: 03/14/23
--- NOTE | 2023-03-14 08:58 | MHC.CLN ---
NUTRITION CONSULT FOR DECREASED PO INTAKE. CURRENTLY NPO DUE TO SBO. RD TO FOLLOW UP FOR DIET ADVANCEMENT.
--- NOTE | 2023-03-14 09:22 | PHA.MEDREC ---
Pharmacy Consult ? Medication Reconciliation Pharmacy has completed the medication reconciliation. Spoke to patient (via planing machine operator) to verify medication list.
--- NOTE | 2023-03-14 10:52 | MHC.CM.PN ---
pt lives with grdchild and dil pt is independent has own ride home had no previous servies dc plan home no servies
[2023-03-14] MEDS: Gabapentin 300 MG CAPSULE 600 MG PO (12:03)
[2023-03-14 12:53] LABS: Appearance Urine Clear; Color Urine Yellow; Glucose Urine UA Negative (Negative); Leukocyte Esterase Urine Negative (Negative); Nitrite Urine Negative (Negative); PH >= 9.0 (5.0-9.0); Urine Blood Negative (Negative); Urine Ketones Negative (Negative); Urine Protein Negative (Neg-Trace)
[2023-03-14 15:50] VITALS: BP 102/49; PULSE 64; RESP 16; TEMP 36.7; O2SAT 99
[2023-03-14] MEDS: Omeprazole 20 MG CAPSULE.DR PO (16:16)
[2023-03-14 19:16] VITALS: BP 105/55; PULSE 65; RESP 18; TEMP 36.5; O2SAT 97
[2023-03-14] MEDS: Amitriptyline HCl 25 MG TABLET PO (20:06)
[2023-03-14] MEDS: Nicotine 14 MG PATCH.TD24 TRANSDERMA (20:06)
[2023-03-15 03:14] VITALS: BP 118/61; PULSE 62; RESP 18; TEMP 36.4; O2SAT 94
[2023-03-15] MEDS: HYDROmorphone HCl 0.5 MG/0.5 ML SYRINGE IVPUSH ×4 (03:26→18:27)
[2023-03-15] MEDS: Dextrose 5 % and Lactated Ring 1,000 ML 125 ML IVCONT ×3 (04:06→19:57)
[2023-03-15 05:50] LABS: MANUAL DIFF FLAG NO
[2023-03-15] MEDS: Omeprazole 20 MG CAPSULE.DR PO ×2 (05:57→17:03)
[2023-03-15] MEDS: Enoxaparin Sodium 40 MG/0.4 ML SYRINGE SUBCUT (05:57)
[2023-03-15 06:08] LABS: Basophils Percent Auto 0.5 % (0-2); Eosinophils Absolute Auto 0.3 X10*3/uL (0.0-0.4); Eosinophils Percent Auto 4.5 % (0-4); Hematocrit 35.2 % (37.0-47.0); Hemoglobin 11.7 g/dl (12.0-16.0); Imm Gran Abs Auto 0.02 X10*3/uL (0.00-0.03); Imm Gran Pct Auto 0.3 % (0.0-0.4); Lymphocytes Absolute Auto 2.5 X10*3/uL (1.2-4.9); Lymphocytes Percent Auto 39.6 % (20-40); Mean Corpuscular HGB Conc 33.2 g/dl (31.0-35.0); Mean Corpuscular Hemoglobin 31.8 pg (27.0-33.0); Mean Corpuscular Volume 95.7 fL (80.0-98.0); Mean Platelet Volume 10.4 fL (9.4-12.3); Monocytes Absolute Auto 0.6 X10*3/uL (0.1-1.2); Monocytes Percent Auto 10.3 % (2-11); Neutrophils Absolute Auto 2.8 x10*3/uL (2.0-8.3); Neutrophils Percent Auto 44.8 % (45-73); Platelet Count 237 X10*3/uL (160-400); Red Blood Count 3.68 X10*6/uL (4.20-5.50); Red Cell Distribution Width 13.1 % (11.0-16.0); White Blood Count 6.2 X10*3/uL (4.8-10.8)
[2023-03-15 07:12] VITALS: BP 130/60; PULSE 99; RESP 18; TEMP 36.2; O2SAT 100
[2023-03-15] MEDS: Fluticasone/Vilanterol 200/25 BLST.W.DEV 1 PUFF INHALE (07:48)
[2023-03-15 07:51] VITALS: PULSE 70; RESP 16; O2SAT 98
[2023-03-15 08:00] VITALS: BMI 23.0
--- NOTE | 2023-03-15 08:09 | PM.PNGS ---
Subjective Subjective Date of Service: 03/15/23 Patient reports: pain is less, flatus and no bowel movement Physical Exam Vital Signs: Vital Signs: Last Vital Signs Temp 97.2 F 03/15/23 07:12 Pulse 70 03/15/23 07:51 Resp 16 03/15/23 07:51 BP 130/60 03/15/23 07:12 Pulse Ox 100 03/15/23 07:12 O2 Del Method Room Air 03/15/23 07:12 BMI result Body Mass Index 23.0 Const: General: comfortable and no acute distress Nutritional Appearance: well nourished Orientation/consciousness: patient oriented x3 Limitations: no limitations Resp: Effort & Inspection: normal respiratory effort, no audible wheezes, no cough and no respiratory distress GI: Inspection: Yes normal to inspection Palpation (GI): Soft to palpation, nontender, no guarding and not rigid Percussion: Yes normal to percussion Auscultation: normal bowel sounds Rectal Exam - Female: deferred Skin: Other: warm, dry, no rash Neuro: General: patient oriented x3 Extrem: Other: no edema Objective Data Active Medications Albuterol Sulfate (Albuterol Sulfate (0.083%) 2.5 Mg/3 Ml Vial.Neb) 2.5 mg INHALE Q4H PRN PRN Reason: Dyspnea Albuterol Sulfate (Albuterol Sulfate 90 Mcg 8 Gm Inhaler) 2 puff INHALE Q4H PRN PRN Reason: Shortness Of Breath Amitriptyline HCl (Amitriptyline Hcl 25 Mg Tablet) 25 mg PO BEDTIME [facility] Last Admin: 03/14/23 20:06 Dose: 25 mg Documented By: SUJATHA Enoxaparin Sodium (Enoxaparin Sodium 40 Mg/0.4 Ml Syringe) 40 mg SUBCUT Q24H [facility] Last Admin: 03/15/23 05:57 Dose: 40 mg Documented By: SUJATHA Fluticasone Propionate (Fluticasone Propionate Nasal 16 Gm [place]) 1 spray NOSTRIL-B DAILY [facility] Fluticasone/Vilanterol (Fluticasone/Vilanterol 200/25 Blst.W.Dev) 1 puff INHALE DAILY [facility] Last Admin: 03/15/23 07:48 Dose: 1 puff Documented By: KEIKO Gabapentin (Gabapentin 300 Mg Capsule) 600 mg PO DAILY [facility] Last Admin: 03/14/23 12:03 Dose: 600 mg Documented By: BRAXTON Hydromorphone HCl (Hydromorphone Hcl 0.5 Mg/0.5 Ml Syringe) 0.5 mg IVPUSH Q3H PRN; Protocol PRN Reason: Pain, Severe (Pain Scale 7-10) Last Admin: 03/15/23 03:26 Dose: 0.5 mg Documented By: SUJATHA Dextrose/Lactated Ringer's (D5lr) 1,000 mls @ 125 mls/hr IVCONT .Q8H [facility] Last Admin: 03/15/23 04:06 Dose: 125 mls/hr Documented By: SUJATHA Lidocaine (Lidocaine 4 % Patch Adh..Patch) 2 patch TRANSDERMA DAILY [facility] Nicotine (Nicotine 14 Mg Patch.Td24) 14 mg TRANSDERMA DAILY [facility] Last Admin: 03/14/23 20:06 Dose: 14 mg Documented By: SUJATHA Omeprazole (Omeprazole 20 Mg Capsule.) 20 mg PO BID@0630,1630 [facility] Last Admin: 03/15/23 05:57 Dose: 20 mg Documented By: SUJATHA Ondansetron HCl (Ondansetron Hcl 4 Mg/2 Ml Vial) 4 mg IVPUSH QID PRN PRN Reason: Nausea Last Admin: 03/14/23 06:43 Dose: 4 mg Documented By: IRINEO Sodium Chloride (0.9 % Sodium Chloride Flush 3 Ml Syringe) 3 ml IVFLUSH QSHIFT [facility] Last Admin: 03/15/23 00:07 Dose: Not Given Documented By: SUJATHA Non-Admin Reason: IV Running Zolpidem Tartrate (Zolpidem Tartrate 5 Mg Tablet) 5 mg PO BEDTIME PRN PRN Reason: Insomnia Labs 03/15/23 05:29 03/14/23 05:16 Labs: Laboratory Results - last 24 hr 03/14/23 03/15/23 12:39 05:29 MCV 95.7 MCH 31.8 MCHC 33.2 RDW 13.1 Plt Count 237 D MPV 10.4 Immature Gran % (Auto) 0.3 Neut % (Auto) 44.8 L Lymph % (Auto) 39.6 [place] % (Auto) 10.3 Eos % (Auto) 4.5 H Baso % (Auto) 0.5 Lymph # (Auto) 2.5 [place] # (Auto) 0.6 Eos # (Auto) 0.3 Baso # (Auto) 0.0 Abs Immat Gran (auto) 0.02 Absolute Neuts (auto) 2.8 Absolute Nucleated RBC 0.000 Nucleated RBC % (auto) 0.0 Urine Color Yellow Urine Appearance Clear Urine pH >= 9.0 Ur Specific [place] 1.020 Urine Protein Negative Urine Glucose (UA) Negative Urine Ketones Negative Urine Blood Negative Urine Nitrite Negative Ur Leukocyte Esterase Negative Microbiology Microbiology Results: Microbiology 03/14/23 02:23 Blood Culture - Preliminary Blood - Venous No growth after 24 hours. 03/14/23 02:16 Blood Culture - Preliminary Blood - Venous No growth after 24 hours. Procedures Date of Service Date of Service: 03/15/23 Progress Note: A&P Assessment and plan (1) Small bowel obstruction: Status: Acute Plan 58 year old female patient presenting with abdominal pain, nausea, vomiting, distension, found to have partial SBO due to adhesions from previous surgery. Today, she feels improved and reports pass a significant amount of flatus. She denies BM but feels she needs her naturopathic meds to have a BM. Abdominal exam is much improved with no tympany and less distension. Plan: start clear liquid diet; encouraged OOB and ambulation. Avoid narcotics as much as possible. Patient's sister will bring in home bowel medications to be evaluated by RN/pharmacy. Await return of full bowel function. Time Spent With Patient Time: Total time managing care of this patient today ____ minutes. Quality Stroke Does the patient have a stroke diagnosis?: No VTE Prior VTE?: No VTE Risk Level:: Surgical - moderate VTE Device Contraindication: N/A - Device Ordered VTE Drug Contraindication: N/A - Med Ordered
[2023-03-15] MEDS: Fluticasone Propionate Nasal 16 GM SPRAY 1 SPRAY NOSTRIL-B (08:11)
[2023-03-15] MEDS: Lidocaine 4 % Patch ADH..PATCH 2 PATCH TRANSDERMA (08:12)
[2023-03-15] MEDS: Gabapentin 300 MG CAPSULE 600 MG PO (08:12)
[2023-03-15] MEDS: Nicotine 14 MG PATCH.TD24 TRANSDERMA (08:12)
--- NOTE | 2023-03-15 10:06 | PM.IMCN ---
History of Present Illness Data of Consult Service Date: 03/15/23 Primary Care Provider: Lurdes Lo MD [facility] Reason for consult: abdominal pain A 58 years old lady with PMH of Asthma, osteoporosis, Smoker among others who presents to the hospital complaining of abdominal pain. evaluation in ED showed SBO. admitted by surgery team and started on supportive therapy. No chest pain, palpitations, SOB, nausea, vomiting, diarrhea or urinary symptoms. she is passing gas. Hospitalist team asked to evaluate the patient for medical problems. Review of Systems Review of Systems: No fever, chills or weakness No chest pain, palpitation No shortness of breath or coughing having abdominal pain no nausea or vomiting No urinary symptoms No any rash or wounds PMFSH Medical History Acid reflux Allergies Asthma Colitis Constipation Fibromyalgia History of Helicobacter pylori infection Lupus Migraines Moderate malnutrition Nicotine dependence, cigarettes, uncomplicated Osteoarthritis Osteoporosis (~2017) Premature menopause Pulmonary nodules Vitamin D deficiency Family History Father Fibromyalgia Osteoporosis Mother Stroke Surgical History History of appendectomy (~1982) History of colonoscopy History of elbow surgery (~2010) History of esophagogastroduodenoscopy (EGD) History of hysterectomy History of removal of ovarian cyst History of resection of small bowel (~2020) History of tonsillectomy Social History Household Members: Family Housing: Apartment Do you presently have visiting nurse or other home services: No Alcohol intake: never Patient Tobacco Use Status: Current everyday Tobacco user Tobacco use type: Cigarette Cigarette Packs Per Day: 1 Cigarettes Per Day: 20.0 Years Smoked: 23 Smoked in Last 30 Days: Yes Patient Interested in Nicotine Replacement: No Second Hand Smoke Exposure: No Use of substances other than those prescribed or required for medical reasons: No Currently Displaying Signs/Symptoms of Drug Intoxication Withdrawal: No Have you been hit, kicked, punched, or otherwise hurt by someone within the past year? If so, by whom?: No Do you feel safe in your current relationship?: No Current Relationship Is there a partner from a previous relationship who is making you feel unsafe now?: No Are you made to feel afraid or neglected: No Advance Directives: No Advance Directives Information Provided: No Do you have thoughts of harming others: None Do you have a plan to hurt others: No Plan Recently lost weight without trying: Yes How much weight loss: 2-13 pounds Eating poorly because of decreased appetite: Yes Nutrition screen score: 4 Nutrition Risks: No Nutritional Risk Patient : No : No Poor oral hygiene: No service: No Current occupational status: disabled 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 Meds Allergies Allergy/AdvReac Type Severity Reaction Status Date / Time tramadol [TRAMADOL] Allergy Unknown NAUSEA & Verified 03/14/23 00:50 VOMITING acetaminophen [From Tylenol] Allergy Nausea and Verified 03/14/23 00:50 Vomiting Active Medications: Current Medications Albuterol Sulfate (Albuterol Sulfate (0.083%) 2.5 Mg/3 Ml Vial.Neb) 2.5 mg INHALE Q4H PRN PRN Reason: Dyspnea Albuterol Sulfate (Albuterol Sulfate 90 Mcg 8 Gm Inhaler) 2 puff INHALE Q4H PRN PRN Reason: Shortness Of Breath Amitriptyline HCl (Amitriptyline Hcl 25 Mg Tablet) 25 mg PO BEDTIME [facility] Last Admin: 03/14/23 20:06 Dose: 25 mg Enoxaparin Sodium (Enoxaparin Sodium 40 Mg/0.4 Ml Syringe) 40 mg SUBCUT Q24H [facility] Last Admin: 03/15/23 05:57 Dose: 40 mg Fluticasone Propionate (Fluticasone Propionate Nasal 16 Gm [place]) 1 spray NOSTRIL-B DAILY [facility] Last Admin: 03/15/23 08:11 Dose: 1 spray Fluticasone/Vilanterol (Fluticasone/Vilanterol 200/25 Blst.W.Dev) 1 puff INHALE DAILY [facility] Last Admin: 03/15/23 07:48 Dose: 1 puff Gabapentin (Gabapentin 300 Mg Capsule) 600 mg PO DAILY [facility] Last Admin: 03/15/23 08:12 Dose: 600 mg Hydromorphone HCl (Hydromorphone Hcl 0.5 Mg/0.5 Ml Syringe) 0.5 mg IVPUSH Q3H PRN; Protocol PRN Reason: Pain, Severe (Pain Scale 7-10) Last Admin: 03/15/23 08:28 Dose: 0.5 mg Dextrose/Lactated Ringer's (D5lr) 1,000 mls @ 125 mls/hr IVCONT .Q8H [facility] Last Admin: 03/15/23 04:06 Dose: 125 mls/hr Lidocaine (Lidocaine 4 % Patch Adh..Patch) 2 patch TRANSDERMA DAILY [facility] Last Admin: 03/15/23 08:12 Dose: 2 patch Nicotine (Nicotine 14 Mg Patch.Td24) 14 mg TRANSDERMA DAILY [facility] Last Admin: 03/15/23 08:12 Dose: 14 mg Omeprazole (Omeprazole 20 Mg Capsule.Dr) 20 mg PO BID@0630,1630 [facility] Last Admin: 03/15/23 05:57 Dose: 20 mg Ondansetron HCl (Ondansetron Hcl 4 Mg/2 Ml Vial) 4 mg IVPUSH QID PRN PRN Reason: Nausea Last Admin: 03/14/23 06:43 Dose: 4 mg Sodium Chloride (0.9 % Sodium Chloride Flush 3 Ml Syringe) 3 ml IVFLUSH QSHIFT [facility] Last Admin: 03/15/23 08:12 Dose: Not Given Zolpidem Tartrate (Zolpidem Tartrate 5 Mg Tablet) 5 mg PO BEDTIME PRN PRN Reason: Insomnia Home Medications Medication Instructions Recorded Confirmed Last Taken Type albuterol sulfate 90 mcg/actuation 2 puff inhalation Q4-6H PRN 04/30/20 03/14/23 Unknown History aerosol inhaler (Ventolin HFA) Shortness Of Breath amitriptyline 25 mg tablet 25 mg PO BEDTIME 04/30/20 03/14/23 Unknown History lidocaine 5 % topical patch 2 patch topical DAILY 04/30/20 03/14/23 Unknown History (Lidoderm) fluticasone propionate 50 1 spray intranasal DAILY allergies 07/16/21 03/14/23 Unknown History mcg/actuation nasal spray,suspension omeprazole 20 mg capsule,delayed 20 mg PO BID 07/16/21 03/14/23 Unknown History release gabapentin 300 mg capsule 600 mg PO QAM 12/07/21 03/14/23 03/13/23 History albuterol sulfate 2.5 mg/3 mL 2.5 mg inhalation Q4H PRN Dyspnea 03/14/23 03/14/23 Unknown History (0.083 %) solution for nebulization Physical Exam Vital Signs and Narrative: Vital Signs: Last Vital Signs Temp 97.2 F 03/15/23 07:12 Pulse 70 03/15/23 07:51 Resp 16 03/15/23 07:51 BP 130/60 03/15/23 07:12 Pulse Ox 100 03/15/23 07:12 O2 Del Method Room Air 03/15/23 07:12 BMI result Body Mass Index 23.0 Const: Other: Constitutional : Awake, interactive, not in distress Neck : Normal inspection, Supple Cardiovascular : RRR, no JVP, no lower extremity edema Respiratory : good bilateral air entry, no crackles, wheezes or rhonchi Gastrointestinal: soft, lax, decreased bowel sounds, Non tender Skin : Warm, Dry Neurological : Alert & oriented x3, No focal deficit Results Labs 03/15/23 05:29 03/14/23 05:16 Labs: Laboratory Results - last 24 hr 03/14/23 03/15/23 12:39 05:29 MCV 95.7 MCH 31.8 MCHC 33.2 RDW 13.1 Plt Count 237 D MPV 10.4 Immature Gran % (Auto) 0.3 Neut % (Auto) 44.8 L Lymph % (Auto) 39.6 [place] % (Auto) 10.3 Eos % (Auto) 4.5 H Baso % (Auto) 0.5 Lymph # (Auto) 2.5 [place] # (Auto) 0.6 Eos # (Auto) 0.3 Baso # (Auto) 0.0 Abs Immat Gran (auto) 0.02 Absolute Neuts (auto) 2.8 Absolute Nucleated RBC 0.000 Nucleated RBC % (auto) 0.0 Urine Color Yellow Urine Appearance Clear Urine pH >= 9.0 Ur Specific [place] 1.020 Urine Protein Negative Urine Glucose (UA) Negative Urine Ketones Negative Urine Blood Negative Urine Nitrite Negative Ur Leukocyte Esterase Negative Assessment and Plan (1) Small bowel obstruction: Status: Acute Plan A 58 years old lady with PMH of Asthma, osteoporosis, Smoker among others who presents to the hospital complaining of abdominal pain. SBO Surgical team following IVF , NPO GERD Omeprazole Smoking Advised to quit nicotine patch Thanks for the consult. will follow the patient with you as needed. plz contact hospitalist team for any questions
[2023-03-15 16:00] VITALS: BP 122/59; PULSE 56; RESP 16; TEMP 36.9; O2SAT 99
[2023-03-15 19:43] VITALS: BP 136/64; PULSE 61; RESP 18; TEMP 36.4; O2SAT 100
[2023-03-15] MEDS: Zolpidem Tartrate 5 MG TABLET PO (20:01)
[2023-03-15] MEDS: Amitriptyline HCl 25 MG TABLET PO (20:01)
[2023-03-15] MEDS: 0.9 % Sodium Chloride Flush 3 ML SYRINGE IVFLUSH (20:01)
[2023-03-16] MEDS: HYDROmorphone HCl 0.5 MG/0.5 ML SYRINGE IVPUSH ×4 (01:04→22:01)
[2023-03-16 03:23] VITALS: BP 118/58; PULSE 55; RESP 18; TEMP 35.9; O2SAT 98
[2023-03-16] MEDS: Dextrose 5 % and Lactated Ring 1,000 ML 125 ML IVCONT ×2 (04:55→14:01)
[2023-03-16] MEDS: Omeprazole 20 MG CAPSULE.DR PO ×2 (05:33→15:35)
[2023-03-16] MEDS: Enoxaparin Sodium 40 MG/0.4 ML SYRINGE SUBCUT (05:33)
[2023-03-16 07:06] VITALS: BP 146/71; PULSE 67; RESP 16; TEMP 36.8; O2SAT 91
[2023-03-16 07:38] VITALS: PULSE 67; RESP 16; O2SAT 91
[2023-03-16] MEDS: Fluticasone/Vilanterol 200/25 BLST.W.DEV 1 PUFF INHALE (07:38)
--- NOTE | 2023-03-16 08:10 | P.PNGS_ITS ---
Subjective Subjective Date of Service: 03/16/23 Interval history: Feels better this morning. Passing flatus and had a solid, soft bowel movement. Hungry. Physical Exam 2 Vital Signs: Vital Signs: Last Vital Signs Temp 98.2 F 03/16/23 07:06 Pulse 67 03/16/23 07:38 Resp 16 03/16/23 07:38 BP 146/71 H 03/16/23 07:06 Pulse Ox 91 L 03/16/23 07:06 O2 Del Method Room Air 03/16/23 07:06 BMI result Body Mass Index 23.0 Const: Orientation/consciousness: patient oriented x3 Resp: Effort & Inspection: normal respiratory effort GI: Inspection: Yes distended (mild) Palpation (GI): Soft to palpation and Tenderness to palpation present (GI) (mild, lower abdomen) Percussion: Yes normal to percussion Skin: General skin exam: no rashes or lesions noted Neuro: General: patient oriented x3 and moves all extremities Objective Data Active Medications Albuterol Sulfate (Albuterol Sulfate (0.083%) 2.5 Mg/3 Ml Vial.Neb) 2.5 mg INHALE Q4H PRN PRN Reason: Dyspnea Albuterol Sulfate (Albuterol Sulfate 90 Mcg 8 Gm Inhaler) 2 puff INHALE Q4H PRN PRN Reason: Shortness Of Breath Amitriptyline HCl (Amitriptyline Hcl 25 Mg Tablet) 25 mg PO BEDTIME [facility] Last Admin: 03/15/23 20:01 Dose: 25 mg Documented By: TATYANA Enoxaparin Sodium (Enoxaparin Sodium 40 Mg/0.4 Ml Syringe) 40 mg SUBCUT Q24H [facility] Last Admin: 03/16/23 05:33 Dose: 40 mg Documented By: TATYANA Fluticasone Propionate (Fluticasone Propionate Nasal 16 Gm [place]) 1 spray NOSTRIL-B DAILY [facility] Last Admin: 03/15/23 08:11 Dose: 1 spray Documented By: NIK Fluticasone/Vilanterol (Fluticasone/Vilanterol 200/25 Blst.W.Dev) 1 puff INHALE DAILY [facility] Last Admin: 03/16/23 07:38 Dose: 1 puff Documented By: DELANO Gabapentin (Gabapentin 300 Mg Capsule) 600 mg PO DAILY [facility] Last Admin: 03/15/23 08:12 Dose: 600 mg Documented By: NIK Hydromorphone HCl (Hydromorphone Hcl 0.5 Mg/0.5 Ml Syringe) 0.5 mg IVPUSH Q3H PRN; Protocol PRN Reason: Pain, Severe (Pain Scale 7-10) Last Admin: 03/16/23 07:27 Dose: 0.5 mg Documented By: JEANIE Dextrose/Lactated Ringer's (D5lr) 1,000 mls @ 125 mls/hr IVCONT .Q8H [facility] Last Admin: 03/16/23 04:55 Dose: 125 mls/hr Documented By: TATYANA Lidocaine (Lidocaine 4 % Patch Adh..Patch) 2 patch TRANSDERMA DAILY [facility] Last Admin: 03/15/23 08:12 Dose: 2 patch Documented By: NIK Nicotine (Nicotine 14 Mg Patch.Td24) 14 mg TRANSDERMA DAILY [facility] Last Admin: 03/15/23 08:12 Dose: 14 mg Documented By: NIK Omeprazole (Omeprazole 20 Mg Capsule.Dr) 20 mg PO BID@0630,1630 [facility] Last Admin: 03/16/23 05:33 Dose: 20 mg Documented By: TATYANA Ondansetron HCl (Ondansetron Hcl 4 Mg/2 Ml Vial) 4 mg IVPUSH QID PRN PRN Reason: Nausea Last Admin: 03/14/23 06:43 Dose: 4 mg Documented By: IRINEO Sodium Chloride (0.9 % Sodium Chloride Flush 3 Ml Syringe) 3 ml IVFLUSH QSHIFT [facility] Last Admin: 03/15/23 20:01 Dose: 3 ml Documented By: TATYANA Zolpidem Tartrate (Zolpidem Tartrate 5 Mg Tablet) 5 mg PO BEDTIME PRN PRN Reason: Insomnia Last Admin: 03/15/23 20:01 Dose: 5 mg Documented By: TATYANA Labs 03/15/23 05:29 03/14/23 05:16 Microbiology Microbiology Results: Microbiology 03/14/23 02:23 Blood Culture - Preliminary Blood - Venous No growth after 48 hours. 03/14/23 02:16 Blood Culture - Preliminary Blood - Venous No growth after 48 hours. Procedures Date of Service Date of Service: 03/16/23 Progress Note: A&P Assessment and plan (1) Small bowel obstruction: Status: Acute Plan Will advance to clear liquids and then solid diet as tolerated. Encouraged OOB/ambulation. Home possibly later today if tolerating solid diet. Patient comfortable with plan. Time Spent With Patient Time: Total time managing care of this patient today ____ minutes. Quality Stroke Does the patient have a stroke diagnosis?: No VTE Prior VTE?: No VTE Risk Level:: Surgical - moderate VTE Device Contraindication: N/A - Device Ordered VTE Drug Contraindication: N/A - Med Ordered
[2023-03-16] MEDS: Gabapentin 300 MG CAPSULE 600 MG PO (08:55)
[2023-03-16] MEDS: Nicotine 14 MG PATCH.TD24 TRANSDERMA (08:56)
[2023-03-16] MEDS: Lidocaine 4 % Patch ADH..PATCH 2 PATCH TRANSDERMA (08:57)
--- NOTE | 2023-03-16 09:00 | HO.PM.IMPN ---
Subjective Subjective Date of Service: 03/16/23 Interval History: Complaining of persistent abdominal pain took laxative from home and and normal bowel movement denies nausea, no vomiting, no fevers, no chills, no other acute issues, denies shortness of breath, and cough. Review of Systems all other systems reviewed and negative. Physical Exam Vital Signs: Vital Signs: Last Vital Signs Temp 98.2 F 03/16/23 07:06 Pulse 67 03/16/23 07:38 Resp 16 03/16/23 07:38 BP 146/71 H 03/16/23 07:06 Pulse Ox 91 L 03/16/23 07:06 O2 Del Method Room Air 03/16/23 07:06 BMI result Body Mass Index 23.0 Const: Other: Constitutional : Awake, alert , not in distress Neck : Normal inspection, no jvd Cardiovascular : RRR, Respiratory : good bilateral air entry, no crackles, no wheezes or rhonchi Gastrointestinal: soft, tender to palpations,+ bowel sounds, Skin : Warm, Dry Neurological : Alert & oriented x3, No focal deficit psych appropriate affect Objective Data Active Medications Albuterol Sulfate (Albuterol Sulfate (0.083%) 2.5 Mg/3 Ml Vial.Neb) 2.5 mg INHALE Q4H PRN PRN Reason: Dyspnea Albuterol Sulfate (Albuterol Sulfate 90 Mcg 8 Gm Inhaler) 2 puff INHALE Q4H PRN PRN Reason: Shortness Of Breath Amitriptyline HCl (Amitriptyline Hcl 25 Mg Tablet) 25 mg PO BEDTIME [facility] Last Admin: 03/15/23 20:01 Dose: 25 mg Documented By: TATYANA Enoxaparin Sodium (Enoxaparin Sodium 40 Mg/0.4 Ml Syringe) 40 mg SUBCUT Q24H [facility] Last Admin: 03/16/23 05:33 Dose: 40 mg Documented By: TATYANA Fluticasone Propionate (Fluticasone Propionate Nasal 16 Gm [place]) 1 spray NOSTRIL-B DAILY [facility] Last Admin: 03/16/23 08:59 Dose: Not Given Documented By: JEANIE Non-Admin Reason: Patient Refused Fluticasone/Vilanterol (Fluticasone/Vilanterol 200/25 Blst.W.Dev) 1 puff INHALE DAILY [facility] Last Admin: 03/16/23 07:38 Dose: 1 puff Documented By: DELANO Gabapentin (Gabapentin 300 Mg Capsule) 600 mg PO DAILY [facility] Last Admin: 03/16/23 08:55 Dose: 600 mg Documented By: JEANIE Hydromorphone HCl (Hydromorphone Hcl 0.5 Mg/0.5 Ml Syringe) 0.5 mg IVPUSH Q3H PRN; Protocol PRN Reason: Pain, Severe (Pain Scale 7-10) Last Admin: 03/16/23 07:27 Dose: 0.5 mg Documented By: JEANIE Dextrose/Lactated Ringer's (D5lr) 1,000 mls @ 125 mls/hr IVCONT .Q8H [facility] Last Admin: 03/16/23 04:55 Dose: 125 mls/hr Documented By: TATYANA Lidocaine (Lidocaine 4 % Patch Adh..Patch) 2 patch TRANSDERMA DAILY [facility] Last Admin: 03/16/23 08:57 Dose: 2 patch Documented By: JEANIE Nicotine (Nicotine 14 Mg Patch.Td24) 14 mg TRANSDERMA DAILY [facility] Last Admin: 03/16/23 08:56 Dose: 14 mg Documented By: JEANIE Omeprazole (Omeprazole 20 Mg Capsule.Dr) 20 mg PO BID@0630,1630 [facility] Last Admin: 03/16/23 05:33 Dose: 20 mg Documented By: TATYANA Ondansetron HCl (Ondansetron Hcl 4 Mg/2 Ml Vial) 4 mg IVPUSH QID PRN PRN Reason: Nausea Last Admin: 03/14/23 06:43 Dose: 4 mg Documented By: IRINEO Sodium Chloride (0.9 % Sodium Chloride Flush 3 Ml Syringe) 3 ml IVFLUSH QSHIFT [facility] Last Admin: 03/16/23 08:59 Dose: Not Given Documented By: JEANIE Non-Admin Reason: IV Running Zolpidem Tartrate (Zolpidem Tartrate 5 Mg Tablet) 5 mg PO BEDTIME PRN PRN Reason: Insomnia Last Admin: 03/15/23 20:01 Dose: 5 mg Documented By: TATYANA Labs 03/15/23 05:29 03/14/23 05:16 Microbiology Microbiology Results: Microbiology 03/14/23 02:23 Blood Culture - Preliminary Blood - Venous No growth after 48 hours. 03/14/23 02:16 Blood Culture - Preliminary Blood - Venous No growth after 48 hours. Assessment and Plan (1) Small bowel obstruction: Status: Acute (2) Nicotine dependence, cigarettes, uncomplicated: Status: Acute Plan 58 years old lady with PMH of Asthma, osteoporosis, Smoker among others who presents to the hospital complaining of abdominal pain. SBO persistent abd pain ,took laxative,had bm,no nausea,no vomiting. Surgical team following IVF , NPO GERD Omeprazole mild intermittent Asthma no acute exac cont home inhalers Smoking Advised to quit, nicotine patch Disposition as per surgery will sign off please call with any questions. Quality Stroke Does the patient have a stroke diagnosis?: No VTE Prior VTE?: No VTE Risk Level:: Surgical - moderate VTE Device Contraindication: N/A - Device Ordered VTE Drug Contraindication: N/A - Med Ordered
--- NOTE | 2023-03-16 14:33 | MHC.CM.PN ---
EMR REVIEWED AND PER MD ROUNDS, PT IS NOT MEDICALLY CLEARED FOR DC (REMAINS NPO, ABD PAIN) CM WILL CONTINUE TO FOLLOW FOR ANY CHANGE IN DC PLAN/NEEDS.
[2023-03-16 16:00] VITALS: BP 135/63; PULSE 16; RESP 18; TEMP 36.4; O2SAT 100
--- NOTE | 2023-03-16 18:37 | PC.NURSE ---
Patient lost IV access ealier today. multiple attempts made by nursing staff to place IV, without success. Dr. Tolentino notified. New order to D/C IV fluids. Also notifed Jyoti. of need for p.o. pain medication. Jyoti was in meeting but stated that he would put the order in shortly.
[2023-03-16 19:10] VITALS: BP 123/62; PULSE 68; RESP 14; TEMP 36.7; O2SAT 98
[2023-03-16] MEDS: 0.9 % Sodium Chloride Flush 3 ML SYRINGE IVFLUSH (20:17)
[2023-03-16] MEDS: Zolpidem Tartrate 5 MG TABLET PO (20:17)
[2023-03-16] MEDS: Amitriptyline HCl 25 MG TABLET PO (20:17)
[2023-03-16] MEDS: oxyCODONE HCl Immed Release 5 MG TABLET PO (21:06)
[2023-03-17 03:17] VITALS: BP 137/60; PULSE 65; RESP 14; TEMP 36.7; O2SAT 100
[2023-03-17] MEDS: HYDROmorphone HCl 0.5 MG/0.5 ML SYRINGE IVPUSH ×3 (04:38→16:29)
[2023-03-17] MEDS: Enoxaparin Sodium 40 MG/0.4 ML SYRINGE SUBCUT (05:29)
[2023-03-17] MEDS: Omeprazole 20 MG CAPSULE.DR PO ×2 (05:29→16:29)
[2023-03-17 07:12] VITALS: BP 145/68; PULSE 60; RESP 16; TEMP 36.2; O2SAT 97
[2023-03-17] MEDS: Fluticasone Propionate Nasal 16 GM SPRAY 1 SPRAY NOSTRIL-B (07:43)
[2023-03-17] MEDS: Nicotine 14 MG PATCH.TD24 TRANSDERMA (07:45)
[2023-03-17] MEDS: 0.9 % Sodium Chloride Flush 3 ML SYRINGE IVFLUSH ×3 (07:46→20:34)
[2023-03-17] MEDS: Lidocaine 4 % Patch ADH..PATCH 2 PATCH TRANSDERMA (11:45)
[2023-03-17] MEDS: Gabapentin 300 MG CAPSULE 600 MG PO (11:45)
--- NOTE | 2023-03-17 14:16 | P.PNGS_ITS ---
Subjective Subjective Date of Service: 03/17/23 <Dora Victoria PA-C - Last Filed: 03/17/23 14:19> 03/17/23 <Les Tolentino MD - Last Filed: 03/17/23 14:24> Interval history: Reports continued intermittent severe pain and bloating however tolerating clears without nausea or vomiting and passing flatus. <Dora Victoria PA-C - Last Filed: 03/17/23 14:19> Physical Exam 2 Vital Signs: Vital Signs: Last Vital Signs Temp 97.1 F 03/17/23 07:12 Pulse 60 03/17/23 07:12 Resp 16 03/17/23 07:12 BP 145/68 H 03/17/23 07:12 Pulse Ox 97 03/17/23 07:12 O2 Del Method Room Air 03/17/23 07:12 BMI result Body Mass Index 23.0 <Dora Victoria PA-C - Last Filed: 03/17/23 14:19> Const: General: comfortable, no acute distress and alert <Dora Victoria PA-C - Last Filed: 03/17/23 14:19> Orientation/consciousness: patient oriented x3 <Dora Victoria PA-C - Last Filed: 03/17/23 14:19> GI: Inspection: Yes distended (mild) <Dora Victoria PA-C - Last Filed: 03/17/23 14:19> Palpation (GI): Soft to palpation, Tenderness to palpation present (GI) (mild diffuse), no guarding and not rigid <Dora Victoria PA-C - Last Filed: 03/17/23 14:19> Percussion: Yes normal to percussion <Dora Victoria PA-C - Last Filed: 03/17/23 14:19> Neuro: General: patient oriented x3 and moves all extremities <DOMINIQUE Diaz Last Filed: 03/17/23 14:19> Objective Data Active Medications Albuterol Sulfate (Albuterol Sulfate (0.083%) 2.5 Mg/3 Ml Vial.Neb) 2.5 mg INHALE Q4H PRN PRN Reason: Dyspnea Albuterol Sulfate (Albuterol Sulfate 90 Mcg 8 Gm Inhaler) 2 puff INHALE Q4H PRN PRN Reason: Shortness Of Breath Amitriptyline HCl (Amitriptyline Hcl 25 Mg Tablet) 25 mg PO BEDTIME [facility] Last Admin: 03/16/23 20:17 Dose: 25 mg Documented By: TATYANA Enoxaparin Sodium (Enoxaparin Sodium 40 Mg/0.4 Ml Syringe) 40 mg SUBCUT Q24H [facility] Last Admin: 03/17/23 05:29 Dose: 40 mg Documented By: TATYANA Fluticasone Propionate (Fluticasone Propionate Nasal 16 Gm [place]) 1 spray NOSTRIL-B DAILY [facility] Last Admin: 03/17/23 07:43 Dose: 1 spray Documented By: EVERARDO Fluticasone/Vilanterol (Fluticasone/Vilanterol 200/25 Blst.W.Dev) 1 puff INHALE DAILY [facility] Last Admin: 03/17/23 08:08 Dose: Not Given Documented By: KEIKO Non-Admin Reason: Not In Room Gabapentin (Gabapentin 300 Mg Capsule) 600 mg PO DAILY [facility] Last Admin: 03/17/23 11:45 Dose: 600 mg Documented By: EVERARDO Hydromorphone HCl (Hydromorphone Hcl 0.5 Mg/0.5 Ml Syringe) 0.5 mg IVPUSH Q3H PRN; Protocol PRN Reason: Pain, Severe (Pain Scale 7-10) Last Admin: 03/17/23 11:45 Dose: 0.5 mg Documented By: EVERARDO Lidocaine (Lidocaine 4 % Patch Adh..Patch) 2 patch TRANSDERMA DAILY [facility] Last Admin: 03/17/23 11:45 Dose: 2 patch Documented By: EVERARDO Nicotine (Nicotine 14 Mg Patch.Td24) 14 mg TRANSDERMA DAILY [facility] Last Admin: 03/17/23 07:45 Dose: 14 mg Documented By: EVERARDO Omeprazole (Omeprazole 20 Mg Capsule.Dr) 20 mg PO BID@0630,1630 [facility] Last Admin: 03/17/23 05:29 Dose: 20 mg Documented By: TATYANA Ondansetron HCl (Ondansetron Hcl 4 Mg/2 Ml Vial) 4 mg IVPUSH QID PRN PRN Reason: Nausea Last Admin: 03/14/23 06:43 Dose: 4 mg Documented By: IRINEO Oxycodone HCl (Oxycodone Hcl Immed Release 5 Mg Tablet) 5 mg PO Q6H PRN PRN Reason: Pain, Moderate(Pain Scale 4-6) Last Admin: 03/16/23 21:06 Dose: 5 mg Documented By: TATYANA Oxycodone HCl (Oxycodone Hcl Immed Release 5 Mg Tablet) 10 mg PO Q6H PRN PRN Reason: Pain, Severe (Pain Scale 7-10) Sodium Chloride (0.9 % Sodium Chloride Flush 3 Ml Syringe) 3 ml IVFLUSH QSHIFT [facility] Last Admin: 03/17/23 07:46 Dose: 3 ml Documented By: EVERARDO Zolpidem Tartrate (Zolpidem Tartrate 5 Mg Tablet) 5 mg PO BEDTIME PRN PRN Reason: Insomnia Last Admin: 03/16/23 20:17 Dose: 5 mg Documented By: TATYANA <Dora Victoria PA-C - Last Filed: 03/17/23 14:19> Labs CBC & Chem 7: 03/15/23 05:29 03/14/23 05:16 <Dora Victoria PA-C - Last Filed: 03/17/23 14:19> Procedures Date of Service Date of Service: 03/17/23 <Dora Victoria PA-C - Last Filed: 03/17/23 14:19> 03/17/23 <Les Tolentino MD - Last Filed: 03/17/23 14:24> Progress Note: A&P Assessment and plan (1) Small bowel obstruction: Status: Acute <Dora Victoria PA-C - Last Filed: 03/17/23 14:19> Assessment and Plan: Persistent abdominal pain and tenderness- unclear if obstruction related therefore SBFT obtained and contrast in colon. Will advance diet to solids. If tolerating, dc to home tomorrow. <Dora Victoria PA-C - Last Filed: 03/17/23 14:19> Persistent abdominal pain and tenderness- unclear if obstruction related therefore SBFT obtained and contrast in colon. Will advance diet to solids. If tolerating, dc to home tomorrow. Small-bowel follow-through reviewed this afternoon. Final reading pending at this time. Contrast noted in colon with no evidence of obstruction. Agree with the above assessment and plan. <Les Tolentino MD - Last Filed: 03/17/23 14:24> Time Spent With Patient Time: Total time managing care of this patient today ____ minutes. <Dora Victoria PA-C - Last Filed: 03/17/23 14:19> Quality Stroke Does the patient have a stroke diagnosis?: No <Dora Victoria PA-C - Last Filed: 03/17/23 14:19> VTE Prior VTE?: No <Dora Victoria PA-C - Last Filed: 03/17/23 14:19> VTE Risk Level:: Surgical - moderate <Dora Victoria PA-C - Last Filed: 03/17/23 14:19> VTE Device Contraindication: N/A - Device Ordered <Dora Victoria PA-C - Last Filed: 03/17/23 14:19> VTE Drug Contraindication: N/A - Med Ordered <Dora Victoria PA-C - Last Filed: 03/17/23 14:19>
[2023-03-17 15:55] VITALS: BP 133/65; PULSE 74; RESP 18; TEMP 36.2; O2SAT 100
[2023-03-17 19:31] VITALS: BP 138/64; PULSE 64; RESP 18; TEMP 36.7; O2SAT 97
[2023-03-17] MEDS: Zolpidem Tartrate 5 MG TABLET PO (20:34)
[2023-03-17] MEDS: Amitriptyline HCl 25 MG TABLET PO (20:34)
[2023-03-18 00:23] VITALS: BP 131/70; PULSE 65; RESP 18; TEMP 36.1; O2SAT 97
[2023-03-18] MEDS: HYDROmorphone HCl 0.5 MG/0.5 ML SYRINGE IVPUSH (04:43)
[2023-03-18] MEDS: Omeprazole 20 MG CAPSULE.DR PO (05:38)
[2023-03-18] MEDS: Enoxaparin Sodium 40 MG/0.4 ML SYRINGE SUBCUT (05:38)
[2023-03-18 07:45] VITALS: PULSE 67; RESP 16; O2SAT 97
[2023-03-18] MEDS: Fluticasone/Vilanterol 200/25 BLST.W.DEV 1 PUFF INHALE (07:45)
[2023-03-18 08:00] VITALS: BP 121/59; PULSE 68; RESP 16; TEMP 36.6; O2SAT 99
[2023-03-18] MEDS: 0.9 % Sodium Chloride Flush 3 ML SYRINGE IVFLUSH (08:07)
[2023-03-18] MEDS: Lidocaine 4 % Patch ADH..PATCH 2 PATCH TRANSDERMA (08:07)
[2023-03-18] MEDS: Gabapentin 300 MG CAPSULE 600 MG PO (08:07)
[2023-03-18] MEDS: Nicotine 14 MG PATCH.TD24 TRANSDERMA (08:07)
[2023-03-18] MEDS: Fluticasone Propionate Nasal 16 GM SPRAY 1 SPRAY NOSTRIL-B (08:08)
--- NOTE | 2023-03-18 08:52 | MHC.CM.PN ---
pt dcd home no services
--- NOTE | 2023-03-18 09:23 | P.PNGS_ITS ---
Subjective Subjective Date of Service: 03/18/23 Interval history: since she feels much better pain has resolved passing flatus, says she had a BM tolerating diet well Physical Exam 2 Vital Signs: Vital Signs: Last Vital Signs Temp 97.9 F 03/18/23 08:00 Pulse 68 03/18/23 08:00 Resp 16 03/18/23 08:00 BP 121/59 L 03/18/23 08:00 Pulse Ox 99 03/18/23 08:00 O2 Del Method Room Air 03/18/23 08:00 BMI result Body Mass Index 23.0 Const: Other: looks well, sitting on chair General: healthy appearing and comfortable Resp: Effort & Inspection: normal respiratory effort Cardio: Rate: regular rate GI: Inspection: No distended Palpation (GI): Soft to palpation, not firm, nontender and no guarding Objective Data Active Medications Albuterol Sulfate (Albuterol Sulfate (0.083%) 2.5 Mg/3 Ml Vial.Neb) 2.5 mg INHALE Q4H PRN PRN Reason: Dyspnea Albuterol Sulfate (Albuterol Sulfate 90 Mcg 8 Gm Inhaler) 2 puff INHALE Q4H PRN PRN Reason: Shortness Of Breath Amitriptyline HCl (Amitriptyline Hcl 25 Mg Tablet) 25 mg PO BEDTIME [facility] Last Admin: 03/17/23 20:34 Dose: 25 mg Documented By: TATYANA Enoxaparin Sodium (Enoxaparin Sodium 40 Mg/0.4 Ml Syringe) 40 mg SUBCUT Q24H [facility] Last Admin: 03/18/23 05:38 Dose: 40 mg Documented By: TATYANA Fluticasone Propionate (Fluticasone Propionate Nasal 16 Gm [place]) 1 spray NOSTRIL-B DAILY [facility] Last Admin: 03/18/23 08:08 Dose: 1 spray Documented By: JOSIAH Fluticasone/Vilanterol (Fluticasone/Vilanterol 200/25 Blst.W.Dev) 1 puff INHALE DAILY [facility] Last Admin: 03/18/23 07:45 Dose: 1 puff Documented By: KEIKO Gabapentin (Gabapentin 300 Mg Capsule) 600 mg PO DAILY [facility] Last Admin: 03/18/23 08:07 Dose: 600 mg Documented By: JOSIAH Hydromorphone HCl (Hydromorphone Hcl 0.5 Mg/0.5 Ml Syringe) 0.5 mg IVPUSH Q3H PRN; Protocol PRN Reason: Pain, Severe (Pain Scale 7-10) Last Admin: 03/18/23 04:43 Dose: 0.5 mg Documented By: TATYANA Lidocaine (Lidocaine 4 % Patch Adh..Patch) 2 patch TRANSDERMA DAILY [facility] Last Admin: 03/18/23 08:07 Dose: 2 patch Documented By: JOSIAH Nicotine (Nicotine 14 Mg Patch.Td24) 14 mg TRANSDERMA DAILY [facility] Last Admin: 03/18/23 08:07 Dose: 14 mg Documented By: JOSIAH Omeprazole (Omeprazole 20 Mg Capsule.Dr) 20 mg PO BID@0630,1630 [facility] Last Admin: 03/18/23 05:38 Dose: 20 mg Documented By: TATYANA Ondansetron HCl (Ondansetron Hcl 4 Mg/2 Ml Vial) 4 mg IVPUSH QID PRN PRN Reason: Nausea Last Admin: 03/14/23 06:43 Dose: 4 mg Documented By: IRINEO Oxycodone HCl (Oxycodone Hcl Immed Release 5 Mg Tablet) 5 mg PO Q6H PRN PRN Reason: Pain, Moderate(Pain Scale 4-6) Last Admin: 03/16/23 21:06 Dose: 5 mg Documented By: TATYANA Oxycodone HCl (Oxycodone Hcl Immed Release 5 Mg Tablet) 10 mg PO Q6H PRN PRN Reason: Pain, Severe (Pain Scale 7-10) Sodium Chloride (0.9 % Sodium Chloride Flush 3 Ml Syringe) 3 ml IVFLUSH QSHIFT [facility] Last Admin: 03/18/23 08:07 Dose: 3 ml Documented By: JOSIAH Zolpidem Tartrate (Zolpidem Tartrate 5 Mg Tablet) 5 mg PO BEDTIME PRN PRN Reason: Insomnia Last Admin: 03/17/23 20:34 Dose: 5 mg Documented By: TATYANA Labs 03/15/23 05:29 03/14/23 05:16 Procedures Date of Service Date of Service: 03/18/23 Progress Note: A&P Assessment and plan (1) Small bowel obstruction: Status: Acute Assessment and Plan: SB series shows contrast passing all the way to colon symptoms resolved abd soft and benign good GI function she says she is ready to be discharged ok to dc home Time Spent With Patient Time: Total time managing care of this patient today ____ minutes. Quality Stroke Does the patient have a stroke diagnosis?: No VTE Prior VTE?: No VTE Risk Level:: Surgical - moderate VTE Device Contraindication: N/A - Device Ordered VTE Drug Contraindication: N/A - Med Ordered
[2023-03-18] MEDS: oxyCODONE HCl Immed Release 5 MG TABLET PO (09:25)
--- NOTE | 2023-03-18 10:46 | MHC.CM.PN ---
PT WILL DC HOME TODAY WITH NO SERVICES PT TO ARRANGE TRANSPORT
--- NOTE | 2023-03-22 09:49 | PM.DS ---
DS: Providers Provider Date of Service: 03/18/23 Date of admission: 03/14/23 04:37 Date of discharge: 03/18/23 Primary care physician: Lurdes Lo MD Attending physician on admission: Les Tolentino Consults: 03/14/23 04:35 Consult to Hospitalist Routine Comment: Consulting Provider: Hospitalist Reason For Exam: SBO, medical management Attending physician on discharge: Torey Benites DS: Diagnosis Discharge Diagnosis (1) Small bowel obstruction: Status: Acute DS: Summary Hospital Course Hospital Course: HPI AT ADMISSION: Leda Curtis is a 58 year old female with PMH of GERD, asthma, constipation who presented with complaints of abdominal pain, nausea and vomiting. Patient has history of SBOs requiring laparotomy, lysis of adhesions, and two small-bowel resections in 2020. She reports on Tuesday, she drank half of a laxative supplement bottle. Tuesday morning, she had a lot of liquid stools. Later in the day she was at a friends house when developed lower abdominal pain. It was initially mild in nature. She ate lunch and the pain worsened and spread to her entire abdomen associated with bloating. She went home and she developed nausea and vomiting. Due to the severity of her pain, she called an ambulance. In the ED, work up included CBC, BMP, LFTs which were significant for a leukocytosis. CT scan was performed which showed proximal to mid dilated small bowel loops with transition in mid to distal small bowel in the anterior right abdomen near an apparent anastomosis. This morning, she feels a little better with less abdominal pain. She is passing flatus. She reports no BM since the liquid stools Tuesday. Her last colonoscopy was in 07/27 and was significant for diverticulosis and hemorrhoids. She does not want the NGT. HOSPITAL COURSE: The patient was admitted to the surgical service for further treatment of the SBO. She was kept NPO, on IVF and PRN analgesics for pain. She had an uneventful hospital course. Her symptoms initially improved and she began to move her bowels. However upon advancing to clears she developed recurrence of the severe abdominal pain. SBFT was therefore obtained which showed contrast in the colon. She reported improvement in her symptoms and had continued evidence of GI function. Her diet was advanced following this. On the day of discharge, she was tolerating a solid diet without nausea or vomiting, she had no abdominal pain and good GI function. Her abdomen was benign and soft and nontender. She was discharged to home on 03/18/23 in stable condition. Status at Discharge Functional status at discharge: independent ambulation Overall status at discharge: patient is back to baseline Time Attestation Discharge coordination time: Less than 30 minutes Quality: Safe Use of Opioids Does Pt have an Active Cancer Diagnosis on the Problem List?: No Quality: Stroke Does the patient have a stroke diagnosis?: No Physical Exam Vital Signs: Vital Signs: Last Vital Signs Temp 97.9 F 03/18/23 08:00 Pulse 68 03/18/23 08:00 Resp 16 03/18/23 08:00 BP 121/59 L 03/18/23 08:00 Pulse Ox 99 03/18/23 08:00 O2 Del Method Room Air 03/18/23 08:00 BMI result Body Mass Index 23.0 Const: General: comfortable, no acute distress and alert Orientation/consciousness: patient oriented x3 GI: Inspection: No distended Palpation (GI): Soft to palpation and nontender Neuro: General: patient oriented x3 Discharge Plan Discharge Anticipated Discharge Date/Time: 03/16/23 12:50 Patient Disposition: Home, Self-Care Discharge Diagnosis: SBO Referrals: Lurdes Lo MD [Primary Care Provider] - 1 Week Discharge Medications: Continued fluticasone furoate-vilanterol [Breo Ellipta] 200-25 mcg/dose blister with device 1 inh inhalation DAILY 30 Days Qty: 60 11RF albuterol sulfate 2.5 mg /3 mL (0.083 %) Solution For Nebulization 2.5 mg INHALATION Q4H PRN (Reason: Dyspnea) amitriptyline 25 mg tablet 25 mg PO BEDTIME lidocaine [Lidoderm] 5 % adhesive patch,medicated 2 patch topical DAILY Rx Instructions: leave on most painful area for up to 12 hrs albuterol sulfate [Ventolin HFA] 90 mcg/actuation HFA aerosol inhaler 2 puff inhalation Q4-6H PRN (Reason: Shortness Of Breath) gabapentin 300 mg capsule 600 mg PO QAM omeprazole 20 mg capsule,delayed release(DR/EC) 20 mg PO BID fluticasone propionate 50 mcg/actuation spray,suspension 1 spray intranasal DAILY Discharge Orders: Discharge Order (Routine); Ordered 03/18/23 Ordered By: Dora Victoria Diet: Advance to usual diet Activity on Discharge: As tolerated Stand Alone Forms: Patient Portal Discharge page Activity Restrictions/Additional Instructions: Follow up with your PCP. Call Your Doctor If: ? ? -Your temperature exceeds 101.5? F? ? ? -You experience excessive pain or swelling ? ? -You have an unexpected reaction to medication ? ? -You experience continued vomiting/nausea Care Plan Goals: Resolution of abdominal pain. Return to baseline health and resume normal activities. Health Concerns: SBO secondary to adhesions chronic constipation Plan of Treatment: Supportive measures Assessment: Improved. Discharge Date/Time: 03/18/23 10:56
== END 2023-03-18 10:56 | disposition home or self-care (01) | DRG 247 ==
LOC: HO.ED 04:43 → HO.EDOVER 04:54 → HO.S3 06:36
PROVIDERS: Admitting Provider Surgery; Emergency Provider Emergency Medicine; PCP Family Medicine; Visit Provider Surgery
DX: K56.51 Intestinal adhesions [bands], with partial obstruction (principal); F17.210 Nicotine dependence, cigarettes, uncomplicated; J45.20 Mild intermittent asthma, uncomplicated; K21.9 Gastro-esophageal reflux disease without esophagitis; Z20.822 Contact with and (suspected) exposure to COVID-19; Z23 Encounter for immunization; Z71.6 Tobacco abuse counseling; Z79.51 Long term (current) use of inhaled steroids; Z79.899 Other long term (current) drug therapy
CPT/HCPCS: 0241U; 36415; 74176; 74250; 80048; 80053; 80076; 81003; 83605; 83690; 84484; 85025; 87040; 90686; 94640; 99285; J1170; J1650; J2270; J2405

== ENCOUNTER 2023-03-14 04:37 | Outpatient (BNV) | payer MEDICAID, SELFPAY | END 2023-03-17 07:30 | PROVIDERS: Admitting Provider Surgery; Emergency Provider Emergency Medicine; PCP Family Medicine; Visit Provider Radiology Diagnostic Radiology | DX: R10.9 Unspecified abdominal pain (principal) | CPT/HCPCS: 74250 ==

== ENCOUNTER → 2023-03-14 04:37 | Outpatient (BNV) | payer MEDICAID, SELFPAY | PROVIDERS: Admitting Provider Surgery; Emergency Provider Emergency Medicine; PCP Family Medicine; Visit Provider Student in an Organized Health Care Education/Training Program | DX: K56.609 Unspecified intestinal obstruction, unspecified as to partial versus complete obstruction (principal) | CPT/HCPCS: 99221; 99232 ==

== ENCOUNTER → 2023-03-14 04:37 | Outpatient (BNV) | payer MEDICAID, SELFPAY | PROVIDERS: Admitting Provider Surgery; Emergency Provider Emergency Medicine; Visit Provider Physician Assistant Surgical | DX: K56.609 Unspecified intestinal obstruction, unspecified as to partial versus complete obstruction (principal) | CPT/HCPCS: 99222; 99232; 99238 ==

== ENCOUNTER 2023-04-29 09:19 | Outpatient (AMB) | payer MEDICAID, SELFPAY ==
--- NOTE | 2023-04-29 09:44 | MHC.OFFVIS ---
Intake Intake Visit Reasons: LDCT [place] Allergies tramadol [TRAMADOL] Allergy (Unknown, Verified 03/14/23 00:50) NAUSEA & VOMITING acetaminophen [From Tylenol] Allergy (Verified 03/14/23 00:50) Nausea and Vomiting HPI HPI Comments History of Present Illness Details Justina is a pleasant 58 year old female, current smoker with a 25 PYH. Patient has been smoking since age 27 for 25 years at 1 ppd. Denies marijuana use. Denies exposure to chemicals or substances like asbestos. Denies second hand smoke exposure. Denies known family history of lung cancer. Denies personal history of cancers. Denies chest CT in last year. Denies recent travel outside the [place]. Denies testing positive for COVID. Admits receiving COVID Vaccine. Denies fever, chills, chest pain, new cough, hemoptysis or unintentional weight loss. Lung Cancer Screening Questionnaire reviewed with patient by provider. Shared Decision Making Completed. Discussed in detail with patient, the risk versus benefit of LDCT screening. Patient in agreement of proceeding with scan. [facility] Medical History Acid reflux Allergies Asthma Colitis Constipation Fibromyalgia History of Helicobacter pylori infection Lupus Migraines Moderate malnutrition Nicotine dependence, cigarettes, uncomplicated Osteoarthritis Osteoporosis (~2017) Premature menopause Pulmonary nodules Vitamin D deficiency Surgical History History of appendectomy (~1982) History of colonoscopy History of elbow surgery (~2010) History of esophagogastroduodenoscopy (EGD) History of hysterectomy History of removal of ovarian cyst History of resection of small bowel (~2020) History of tonsillectomy Family History Father Fibromyalgia Osteoporosis Mother Stroke Social History Household Members: Family Housing: Apartment Do you presently have visiting nurse or other home services: No Alcohol intake: never Comment: Patient sleeping Patient Tobacco Use Status: Current everyday Tobacco user Tobacco use type: Cigarette Cigarette Packs Per Day: 1 Cigarettes Per Day: 20.0 Years Smoked: 23 Second Hand Smoke Exposure: No service: No Current occupational status: disabled 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 Assessment & Plan Assessment & Plan (1) Nicotine dependence, cigarettes, uncomplicated: Code(s): F17.210 - Nicotine dependence, cigarettes, uncomplicated Plan Shared decision-making visit completed today in office. This patient meets criteria for LDCT for lung cancer screening purposes and is asymptomatic. Offered smoking cessation. Patient has been scheduled for a low dose chest CT for screening purposes at [facility]. We discussed how the results will be obtained depending on CT findings. RADS 1 and RADS 2 will receive a letter with results and will follow up for annual LDCT. Patient informed they will be contacted at later date to schedule upcoming LDCT scan. RADS 3 and RADS 4 will receive a telephone call, or an office visit after reviewing case at our Lung Cancer Conference to determine when the next LDCT will be scheduled or further interventions that may be needed. Discussed importance of screening program and compliance with yearly LDCT scan as scheduled. Risks, benefits, and alternatives were discussed in detail and patient agrees to proceed. Risks discussed include but are not limited to: radiation exposure and possibility of additional intervention for benign disease. Benefits include detection of lung cancer at an early stage. A copy of today's visit and LDCT results will be sent to patient's PCP. Incidental findings on LDCT are PCP's responsibility. If there are incidental findings, our office will ensure that PCP office is aware of these findings. All questions were answered and patient is in agreement of plan. Coding Level of Care Code Lung Cancer Screening G0296 Diagnoses Nicotine dependence, cigarettes, uncomplicated F17.210
== END 2023-04-29 09:52 | disposition home or self-care (01) ==
PROVIDERS: PCP Family Medicine; Visit Provider Nurse Practitioner Family
DX: F17.210 Nicotine dependence, cigarettes, uncomplicated (principal)
CPT/HCPCS: G0296

== ENCOUNTER 2023-04-29 09:55 | Outpatient (REF) | payer MEDICAID, SELFPAY | END 2023-04-29 09:56 | disposition home or self-care (01) | LOC: HO.CT 09:55 | PROVIDERS: PCP Family Medicine; Visit Provider Physician Assistant Medical | DX: Z12.2 Encounter for screening for malignant neoplasm of respiratory organs (principal); F17.210 Nicotine dependence, cigarettes, uncomplicated | CPT/HCPCS: 71271; G0296 ==

== ENCOUNTER 2023-08-24 07:14 | Inpatient (IN) | payer MEDICAID, SELFPAY ==
[2023-08-24] VITALS (7 sets, daily range): BP systolic 107–140; BP diastolic 56–80; PULSE 59–82; RESP 16–22; TEMP 36.2–37.1; O2SAT 92–99; BMI 23.4; BMI 20.4
--- NOTE | ~2023-08-24 | FL_ITS ---
EXAMINATION: FL SMALL BOWEL SERIES CLINICAL INFORMATION: Small bowel obstruction seen on CT abdomen and pelvis 08/24/2023. COMPARISON: CT abdomen and pelvis 09/03/2023. TECHNIQUE: Following a grinder set up operator surface image of the abdomen, contrast was administered orally, and interval abdominal radiographs were performed to assess for contrast progression through the small bowel. 80% Gastroview was utilized for the examination. FINDINGS: Heavy Equipment Operating Engineer image of the abdomen demonstrates clear lung bases aside from linear atelectasis in both lower lobes. Normal heart size. No persistently abnormally dilated loops of small bowel are visualized on these abdominal plain films. No significant stool burden is seen. Minimally prominent gas-filled jejunal loops seen in the central upper pelvis. These do not appear thickened. Chain suture material seen just inferior to the right SI joint. Chain suture material also projects over the region of the gastric body. There appears to have been prior enteric anastomosis of the fourth segment of the duodenum to the proximal jejunum. Immediate postcontrast image demonstrates contrast within the stomach fundus, body, antrum, and duodenum, as well as the jejunum. Small amount of residual contrast is seen within the distal esophagus. Minimal thickening of the duodenal and most proximal small bowel mucosal folds is noted. This is similar similar in appearance to the recent CT exam. 1 hour exam demonstrates progression of contrast into the proximal to mid small bowel, which is mildly gas distended but not pathologically distended. Loops at this level are normal in mucosal pattern. The enteric anastomosis is unremarkable without obstruction. 1 hour 30 minute overhead exam demonstrates slow progression of contrast into the mid small bowel. Minimal residual contrast is present within the stomach and duodenum. 2 hour 30 minute shows minimal progression of contrast into the mid and distal ileum, but not the terminal ileum. This indicates slow transit. There is again no dilated bowel. Flocculated enteric contrast is seen more proximally at this point. Mild dilution of Gastroview in the distal bowel loops is noted. 5 hour overhead image demonstrates progression of enteric contrast into the descending and transverse colon, through the terminal ileum, with residual contrast within the mid and distal small bowel. No holdup through the distal enteric anastomosis. Grossly the partially imaged terminal ileum has a normal mucosal pattern. FLUOROSCOPY TIME: None. Only overhead radiographs were taken. FL/FL small bowel follow through IMPRESSION: -No evidence of residual bowel obstruction on this small bowel series. -Evidence of mucosal fold thickening of duodenal and proximal jejunal bowel loops, supporting a proximal enteritis. No evidence of holdup at the proximal or distal anastomoses.
--- NOTE | ~2023-08-24 | CT_ITS ---
EXAMINATION: CT ABDOMEN AND PELVIS WITH CONTRAST CLINICAL INFORMATION: Nausea and vomiting, history of previous S/P low-dose and 2 resections. COMPARISON: Multiple CTs, most recent, 03/14/2023 TECHNIQUE: Multidetector volumetric images were obtained from the superior aspect of the liver through the pubic symphysis following administration 85 mL of Omnipaque 350 intravenous contrast. Sagittal and coronal reformatted images were obtained on the technologist's workstation. Oral contrast: Patient was unable to drink oral contrast. This CT examination was performed using dose optimization techniques as appropriate, variously including the following: *Automated exposure control *Adjustment of mA and/or kV according to patient size (this includes techniques or standardized protocols for targeted exams where dose is matched to indication/reason for exam; i.e. extremities or head) *Use of iterative reconstruction technique DLP: 368 mGy-cm FINDINGS: BOX FABRICATOR: Nonspecific bowel pattern with air down to the rectum, mild fecal retention, dilated proximal small bowel loops on AP commodities clerk and multiple air-fluid small bowel loops on lateral commodities clerk. LUNG BASES: Nonenlarged heart. No pericardial effusion. Small hiatal hernia. Evaluation of lung martino limited by respiratory motion. Scattered atelectasis. Right minor fissural lymph nodes. Degenerative LIVER, GALLBLADDER, AND BILIARY TREE: The liver is normal in size, shape, and attenuation. No focal hepatic lesion or biliary ductal dilatation is present. The gallbladder is unremarkable with no evidence of radiopaque gallstones, gallbladder wall thickening, or obvious pericholecystic inflammatory changes. PANCREAS: Unremarkable. SPLEEN: Unremarkable. ADRENAL GLANDS: Unremarkable. KIDNEYS AND URETERS: The kidneys are normal in size, shape, and attenuation. No hydronephrosis, hydroureter, or calculi seen. Left renal cysts again identified. No perinephric stranding. BLADDER: Under distended. GASTROINTESTINAL TRACT: Small hiatal hernia. Distended fluid-filled stomach with mild wall thickening. Descending duodenum and proximal transverse duodenum are thickened. There are multiple hyper attenuating thick-walled proximal small bowel loops in the right upper quadrant, axial images 3:34 through 3:54. There is a looping configuration of the thickened small bowel loops in the right upper quadrant on coronal 6:19. There is fairly abrupt transition of thickened hyperattenuating bowel loops to nonthickened mildly hyperattenuating dilated fluid-filled bowel loops in the anterior abdomen, 6:21, axial 3:52. Dilated fluid-filled bowel loops measure up to 2.9 cm maximally. Fairly decompressed distal fluid-filled small bowel loops are seen in the right hemipelvis without definite zone of transition. Enteroenteric anastomoses left upper and right lower quadrants again seen without focal abnormalities at the suture sites. Air and feces in ascending and transverse colon. Relatively decompressed descending colon. PERITONEUM: Interval development of perihepatic, anterior peritoneal, left paracolic gutter, mesenteric and pelvic free fluid. No free air. ABDOMINAL WALL: No significant hernia is appreciated. LYMPH NODES: No pathologic retroperitoneal lymphadenopathy. Prominent right mesenteric lymph nodes measuring 1.6 and 1.7 cm, coronal 6:4142. VASCULAR: Nonaneurysmal aorta with patency of the mesenteric vessels. There is unchanged whirling appearance of the superior mesenteric vein, seen on 04/12/2021. PELVIC VISCERA: Phleboliths. OSSEOUS STRUCTURES: Unremarkable. CT/CT abdomen pelvis w IV con IMPRESSION: Abnormally thick walled, hyper attenuating right upper/mid abdominal small bowel loops. Possibility of internal hernia with vascular compromise needs to be excluded in patient with history of multiple abdominal surgery/resections. Interval development of free fluid considered concerning associated finding. Correlate with lactate level and clinical presentation. Multiple dilated fluid-filled small bowel loops with relatively decompressed distal small bowel loops, but no definite zone of transition seen, possible small bowel obstruction. (Similar but less dilated small bowel loops were seen on 03/14/2023 noncontrast study, follow-up small bowel follow-through demonstrating delay in transit time but no mechanical obstruction at that time.) At the time of this dictation, PSA service contacted to alert referring physician of findings.
[2023-08-24] MEDS: HYDROmorphone HCl 1 MG/ML SYRINGE IVPUSH (08:33)
[2023-08-24] MEDS: 0.9 % Sodium Chloride 1,000 ML 999 ML IV (08:33)
[2023-08-24] MEDS: ondansetron HCL 4 MG/2 ML VIAL IVPUSH ×2 (08:33→18:26)
--- NOTE | 2023-08-24 08:35 | ED_ITS ---
HPI - Abdominal Pain General Chief Complaint: Abdominal Pain Stated Complaint: ABD PAIN AND VOMITING PER EMS Time Seen by Provider: 08/24/23 07:45 Source: patient and old records reviewed Mode of arrival: EMS Limitations: other (in pain poor historian) History of Present Illness HPI narrative: 58 yo female with PMH of asthma, hx of SBO and 2 resections in 2020 here with c/o lower abdominal pain and lack of BM and flatus and vomiting starting yesterday. She is crying and yelling out and is hard to get a history from. States to look in records she has had this before. MD elicited complaint: abdominal pain Pertinent past history: other (SBO) Onset (ago): day(s) (1) Pain Consistency: constant Location: diffuse Severity: severe Quality: stabbing Radiation: none Migration to: no migration Exacerbating factors: movement Relieving factors: nothing Context: history of similar episodes Associated symptoms: nausea, vomiting and constipation Related Data Home Medications ?Medication ?Instructions ?Recorded ?Confirmed albuterol sulfate 90 mcg/actuation 2 puff inhalation Q4-6H PRN 04/30/20 03/14/23 aerosol inhaler (Ventolin HFA) Shortness Of Breath amitriptyline 25 mg tablet 25 mg PO BEDTIME 04/30/20 03/14/23 lidocaine 5 % topical patch 2 patch topical DAILY 04/30/20 03/14/23 (Lidoderm) fluticasone propionate 50 1 spray intranasal DAILY allergies 07/16/21 03/14/23 mcg/actuation nasal spray,suspension omeprazole 20 mg capsule,delayed 20 mg PO BID 07/16/21 03/14/23 release gabapentin 300 mg capsule 600 mg PO QAM 12/07/21 03/14/23 albuterol sulfate 2.5 mg/3 mL 2.5 mg inhalation Q4H PRN Dyspnea 03/14/23 03/14/23 (0.083 %) solution for nebulization Previous Rx's ?Medication ?Instructions ?Recorded fluticasone furoate 200 1 inh inhalation DAILY 30 days #60 12/27/22 mcg-vilanterol 25 mcg/dose ea inhalation powder (Breo Ellipta) Allergies Allergy/AdvReac Type Severity Reaction Status Date / Time tramadol [TRAMADOL] Allergy Unknown NAUSEA & Verified 08/24/23 07:37 VOMITING acetaminophen [From Tylenol] Allergy Nausea and Verified 08/24/23 07:37 Vomiting Review of Systems Review of Systems Constitutional : No Weight loss, No Fever, No Chills ENT/Mouth : No sore throat, No Rhinorrhea Eyes: No Swelling, No Redness Cardiovascular : No Chest Pain, No SOB, NoEdema Respiratory : No Cough, No Sputum, No Wheezing Gastrointestinal : Positive Nausea, Positive Vomiting, no Diarrhea, positive abdominal Pain, No Hematochezia, No Melena Genitourinary : No Dysuria, No Urinary Frequency, No Hematuria, No Urgency Musculoskeletal : No joint pain, No Myalgias, No Joint Swelling Skin : No Skin Lesions, No rash Neuro : No Weakness, No Numbness, No Dizziness, No Headache Psych : No Anxiety/Panic, No Depression Heme/Lymph: No Bruising, No Lymphadenopathy Endocrine : No Polyuria, No Polydipsia All other systems reviewed and are negative. [facility] Past Medical History Attestation statement: The following information was validated with the patient. Source: old records reviewed Medical History Premature menopause History of Helicobacter pylori infection Nicotine dependence, cigarettes, uncomplicated Allergies Asthma Constipation Moderate malnutrition Pulmonary nodules Colitis Acid reflux Vitamin D deficiency Osteoporosis (~2017) Migraines Lupus Osteoarthritis Fibromyalgia Surgical History History of appendectomy (~1982) History of tonsillectomy History of removal of ovarian cyst History of hysterectomy History of resection of small bowel (~2020) History of colonoscopy History of esophagogastroduodenoscopy (EGD) History of elbow surgery (~2010) Family History Family History Father Fibromyalgia Osteoporosis Mother Stroke Social History Social History Household Members: Family Housing: Apartment Do you presently have visiting nurse or other home services: No Alcohol intake: never Comment: Patient sleeping Patient Tobacco Use Status: Current everyday Tobacco user Tobacco use type: Cigarette Cigarette Packs Per Day: 1 Cigarettes Per Day: 20.0 Years Smoked: 23 Second Hand Smoke Exposure: No Advance Directives: No service: No Current occupational status: disabled 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 Physical Exam ED Vital Signs: Vital Signs - 24 hr 08/24/23 07:35 08/24/23 08:33 08/24/23 10:46 Temperature 97.9 F 97.8 F Pulse Rate 75 76 Respiratory Rate 16 18 16 Blood Pressure 115/61 112/68 Pulse Oximetry 98 94 Oxygen Delivery Method Room Air Room Air 08/24/23 11:26 Temperature Pulse Rate Respiratory Rate 22 H Blood Pressure Pulse Oximetry Oxygen Delivery Method BMI result Body Mass Index 23.4 Appearance: Alert. Oriented X3. anxious active vomiting mild acute distress. Eyes: Pupils equal, round and reactive to light. ENT: Pharynx dry MM Neck: Normal inspection. Neck supple. CVS: Normal heart rate and rhythm. Pulses normal. Respiratory: No respiratory distress. Breath sounds normal. Abdomen: Soft with mild distention diffuse lower ttp no rebound has lower scar noted Skin: Skin warm and dry. pale skin color. Normal skin turgor. Extremities: No lower extremity edema. No calf ttp Neuro: Oriented X 3. No motor deficit. No sensory deficit. Course Course Course Narrative: refused oral contrast Reevaluation(s) Reevaluation #1: NG tube held off no further vomiting Medical Decision Making Medical Decision Making [facility] Narrative: 58 yo female with PMH of asthma, hx of SBO and 2 resections in 2020 here with c/o n/v and abdominal pain and lack of BM and flatus since yesterday at this time will need IVF, nausea medications, IV dilaudid for pain, CT scan for SBO ordered. Differential Diagnosis Differential Diagnoses: The differential diagnosis associated with the presentation includes SBO, colitis, enteritis, ileus Admission/Observation Consideration of admission/observation: Escalation of care including admission/observation considered message sent to Dr. Kent 1210pm surgery to admit 201pm Consult Healthcare Provider Management of the patient was discussed with: Bioprocessing Manufacturing Technician Dr. Kent sent messages at 1210pm then again when CT scan resulted at 1216pm given concerning findings Lab Data [facility] Lab Attestation statement: I reviewed the patient's lab results. 08/24/23 08:28 08/24/23 08:28 Labs: Lab Results 08/24/23 08/24/23 Range/Units 08:28 12:25 WBC 16.4 H (4.8-10.8) X10*3/uL RBC 5.33 D (4.20-5.50) X10*6/uL Hgb 17.1 H D (12.0-16.0) g/dl Hct 48.6 H D (37.0-47.0) % MCV 91.2 (80.0-98.0) fL MCH 32.1 (27.0-33.0) pg MCHC 35.2 H (31.0-35.0) g/dl RDW 12.5 (11.0-16.0) % Plt Count 334 D (160-400) X10*3/uL MPV 10.1 (9.4-12.3) fL Immature Gran % (Auto) 0.4 (0.0-0.4) % Neut % (Auto) 89.7 H (45-73) % Lymph % (Auto) 5.9 L (20-40) % Hunt % (Auto) 3.5 (2-11) % Eos % (Auto) 0.1 (0-4) % Baso % (Auto) 0.4 (0-2) % Lymph # (Auto) 1.0 L (1.2-4.9) X10*3/uL Hunt # (Auto) 0.6 (0.1-1.2) X10*3/uL Eos # (Auto) 0.0 (0.0-0.4) X10*3/uL Baso # (Auto) 0.1 (0.0-0.2) X10*3/uL Abs Immat Gran (auto) 0.06 H (0.00-0.03) X10*3/uL Absolute Neuts (auto) 14.7 H (2.0-8.3) x10*3/uL Absolute Nucleated RBC 0.000 (0.0-0.012) X10*3/uL Nucleated RBC % (auto) 0.0 (0.0-0.2) /100WBC Sodium 141 (135-145) mmol/L Potassium 3.7 (3.3-5.1) mmol/L Chloride 101 (96-108) mmol/L Carbon Dioxide 29 (22-29) mmol/L Anion Gap 15 (12-20) BUN 13 (9-16) mg/dL Creatinine 0.73 (0.5-1.4) mg/dL Estim Creat Clear Calc 80.5 Estimated GFR > 60 Random Glucose 168 H (60-115) mg/dL Lactic Acid 0.6 (0.5-2.0) mmol/L Calcium 10.5 H D (8.4-10.2) mg/dL Magnesium 1.8 (1.6-2.6) mg/dL Total Bilirubin 0.5 (0.0-1.0) mg/dL Direct Bilirubin 0.2 (0.0-0.5) mg/dL AST 23 (5-31) U/L ALT 17 (0-31) U/L Alkaline Phosphatase 123 H (39-117) U/L Total Protein 8.3 H (6.5-8.0) g/dL Albumin 4.7 (3.5-5.0) g/dL Lipase 12 (8-78) U/L Blood Type O Positive Antibody Screen NEGATIVE Independent Interpretation I performed an independent interpretation of an: CT Scan (SBO) Radiology Impression Discussion of test interpretation with radiology: I discussed test interpretation with the radiologist and I have reviewed the radiologist's reading. Independent Historian Clinical information obtained from an independent historian. History obtained from or confirmed by: EMS External Record Review External record reviewed: Inpatient record Medications Administered Generic Name Dose Route Start Last Admin Trade Name Freq PRN Reason Stop Dose Admin Sodium Chloride 1,000 mls @ 100 mls/hr 08/24/23 11:30 08/24/23 11:26 Ns IVCONT 100 mls/hr .Q10H NASH Administration Discontinued Medications Generic Name Dose Route Start Last Admin Trade Name Freq PRN Reason Stop Dose Admin Diphenhydramine HCl 25 mg 08/24/23 11:33 08/24/23 11:47 Diphenhydramine Hcl 50 Mg/Ml Vial IVPUSH 08/24/23 11:34 25 mg ONCE ONE Administration Hydromorphone HCl 1 mg 08/24/23 08:06 08/24/23 08:33 Hydromorphone Hcl 1 Mg/Ml Syringe IVPUSH 08/24/23 08:07 1 mg ONCE ONE Administration Protocol Hydromorphone HCl 0.5 mg 08/24/23 11:21 08/24/23 11:26 Hydromorphone Hcl 0.5 Mg/0.5 Ml Syringe IVPUSH 08/24/23 11:22 0.5 mg ONCE ONE Administration Protocol Sodium Chloride 1,000 mls @ 999 mls/hr 08/24/23 08:15 08/24/23 09:45 Ns IV 08/24/23 09:15 Infused .Q1H1M NASH Infusion Iohexol 100 ml 08/24/23 09:39 08/24/23 09:39 Iohexol 350 Mg/Ml 100 Ml Infus..Btl IV 08/24/23 09:40 85 ml ONCE ONE Administration Ondansetron HCl 4 mg 08/24/23 08:06 08/24/23 08:33 Ondansetron Hcl 4 Mg/2 Ml Vial IVPUSH 08/24/23 08:07 4 mg ONCE ONE Administration Pantoprazole Sodium 40 mg 08/24/23 08:38 08/24/23 09:45 Pantoprazole Sodium 40 Mg/10 Ml Vial IVPUSH 08/24/23 08:39 40 mg ONCE ONE Administration Prochlorperazine Edisylate 10 mg 08/24/23 11:33 08/24/23 11:47 Prochlorperazine Edisylate 10 Mg/2 Ml Vial IVPUSH 08/24/23 11:34 10 mg ONCE ONE Administration Critical Care Time Critical Care Time Critical Care Time: Yes Total Critical Care Time: 75 Attestation: repeat IV dilaudid with improved pain control, review of records, medical consult I attest to this time spent taking care of the patient Discharge Plan Discharge Clinical Impression: Small bowel obstruction Abdominal pain Qualifiers: Abdominal location: generalized Qualified Code(s): R10.84 - Generalized abdominal pain Vomiting Qualifiers: Vomiting type: unspecified Nausea presence: with nausea Qualified Code(s): R 11.2 - Nausea with vomiting, unspecified Patient Disposition: Admitted As Inpatient Print Language: Eritrean
[2023-08-24 08:39] LABS: MANUAL DIFF FLAG NO
[2023-08-24 08:46] LABS: Basophils Absolute Auto 0.1 X10*3/uL (0.0-0.2); Basophils Percent Auto 0.4 % (0-2); Eosinophils Percent Auto 0.1 % (0-4); Hematocrit 48.6 % (37.0-47.0); Hemoglobin 17.1 g/dl (12.0-16.0); Imm Gran Abs Auto 0.06 X10*3/uL (0.00-0.03); Imm Gran Pct Auto 0.4 % (0.0-0.4); Lymphocytes Percent Auto 5.9 % (20-40); Mean Corpuscular HGB Conc 35.2 g/dl (31.0-35.0); Mean Corpuscular Hemoglobin 32.1 pg (27.0-33.0); Mean Corpuscular Volume 91.2 fL (80.0-98.0); Mean Platelet Volume 10.1 fL (9.4-12.3); Monocytes Absolute Auto 0.6 X10*3/uL (0.1-1.2); Monocytes Percent Auto 3.5 % (2-11); Neutrophils Absolute Auto 14.7 x10*3/uL (2.0-8.3); Neutrophils Percent Auto 89.7 % (45-73); Platelet Count 334 X10*3/uL (160-400); Red Blood Count 5.33 X10*6/uL (4.20-5.50); Red Cell Distribution Width 12.5 % (11.0-16.0); White Blood Count 16.4 X10*3/uL (4.8-10.8)
[2023-08-24 08:56] LABS: Alanine Aminotransferase 17 U/L (0-31); Albumin Level 4.7 g/dL (3.5-5.0); Alkaline Phosphatase 123 U/L (39-117); Anion Gap 15 (12-20); Aspartate Amino Transferase 23 U/L (5-31); Bilirubin Direct 0.2 mg/dL (0.0-0.5); Bilirubin Total 0.5 mg/dL (0.0-1.0); Blood Urea Nitrogen 13 mg/dL (9-16); Calcium 10.5 mg/dL (8.4-10.2); Carbon Dioxide 29 mmol/L (22-29); Chloride 101 mmol/L (96-108); Creatinine Clr Calc Pharmacy 80.5; Estimated Glomerular Filt Rate > 60; Glucose Random 168 mg/dL (60-115); Lipase 12 U/L (8-78); Magnesium 1.8 mg/dL (1.6-2.6); Potassium 3.7 mmol/L (3.3-5.1); Sodium 141 mmol/L (135-145); Total Protein 8.3 g/dL (6.5-8.0)
[2023-08-24] MEDS: iohexoL 350 MG/ML 100 ML INFUS..BTL IV (09:39)
[2023-08-24] MEDS: Pantoprazole Sodium 40 MG/10 ML VIAL IVPUSH (09:45)
--- NOTE | 2023-08-24 09:51 | PC.NURSE ---
Pt arrived via EMS, stating abdominal pain starting yesterday, She is reporting vomiting, noted in ED when she threw up all over floor, orange brown vomit noted. Iv placed, meds given per JUL. Pt resting now.
[2023-08-24] MEDS: HYDROmorphone HCl 0.5 MG/0.5 ML SYRINGE IVPUSH ×2 (11:26→18:25)
[2023-08-24] MEDS: 0.9 % Sodium Chloride 1,000 ML 100 ML IVCONT ×2 (11:26→19:51)
[2023-08-24] MEDS: diphenhydrAMINE HCL 50 MG/ML VIAL 25 MG IVPUSH (11:47)
[2023-08-24] MEDS: Prochlorperazine Edisylate 10 MG/2 ML VIAL IVPUSH (11:47)
[2023-08-24 12:54] LABS: Lactic Acid 0.6 mmol/L (0.5-2.0)
--- NOTE | 2023-08-24 14:35 | P.HPGS_ITS ---
History of Present Illness History of Present Illness Date of Service: 08/24/23 Chief complaint: SBO Narrative: Leda Curtis is a 58 year old female with PMH of GERD, asthma, constipation who presented with complaints of abdominal pain, nausea and vomiting. Patient has history of SBOs requiring laparotomy, lysis of adhesions, and two small-bowel resections in 2020. Last admission here for SBO was 03/31 and she resolved with nonoperative management. She reports with this current episode she developed mid abdominal pain two days ago and this increased in severity this morning and became more diffuse. The pain was associated with nausea and has had multiple episodes of vomiting. She reports feeling bloated for more than a week. She has not been passing significant flatus and last normal BM was yesterday morning. Due to the severity of her pain and persistent vomiting, she called an ambulance. In the ED, work up included CBC, BMP, LFTs which were significant for a leukocytosis of 16.4. Lactic acid is normal. CT scan showed distended stomach and dilated fluid-filled small bowel loops with decompressed distal small bowel loop without definite zone of transition seen, concerning for SBO. She reports some improvement in pain following analgesics but continues to deny any flatus. She denies sick contacts, diarrhea, fever, chills. Review of Systems Constitutional: Constitutional: Denies chills and Denies fever(s) ENT: Denies dizziness Cardiovascular: Cardiovascular: Denies chest pain and Denies dyspnea Respiratory: Respiratory: Denies cough and Denies dyspnea Gastrointestinal: Gastrointestinal: Reports as per HPI Genitourinary: Genitourinary: Denies hematuria and Denies dysuria Integumentary/Breasts: Skin/Breast: Denies rash Neurologic: Denies dizziness PMFSH Past Medical History Medical History Premature menopause History of Helicobacter pylori infection Nicotine dependence, cigarettes, uncomplicated Allergies Asthma Constipation Moderate malnutrition Pulmonary nodules Colitis Acid reflux Vitamin D deficiency Osteoporosis (~2017) Migraines Lupus Osteoarthritis Fibromyalgia Family History Family History Father Fibromyalgia Osteoporosis Mother Stroke Surgical History Surgical History History of appendectomy (~1982) History of tonsillectomy History of removal of ovarian cyst History of hysterectomy History of resection of small bowel (~2020) History of colonoscopy History of esophagogastroduodenoscopy (EGD) History of elbow surgery (~2010) Social History Social History Household Members: Family Housing: Apartment Do you presently have visiting nurse or other home services: No Alcohol intake: never Comment: Patient sleeping Patient Tobacco Use Status: Current everyday Tobacco user Tobacco use type: Cigarette Cigarette Packs Per Day: 1 Cigarettes Per Day: 20.0 Years Smoked: 23 Second Hand Smoke Exposure: No Advance Directives: No service: No Current occupational status: disabled 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 Meds Allergies Allergy/AdvReac Type Severity Reaction Status Date / Time tramadol [TRAMADOL] Allergy Unknown NAUSEA & Verified 08/24/23 07:37 VOMITING acetaminophen [From Tylenol] Allergy Nausea and Verified 08/24/23 07:37 Vomiting Active Medications: Current Medications Enoxaparin Sodium (Enoxaparin Sodium 40 Mg/0.4 Ml Syringe) 40 mg SUBCUT Q24H NASH Hydromorphone HCl (Hydromorphone Hcl 1 Mg/Ml Syringe) 0.5 mg IVPUSH Q4H PRN; Protocol PRN Reason: Pain, Severe (Pain Scale 7-10) Sodium Chloride (Ns) 1,000 mls @ 100 mls/hr IVCONT .Q10H [facility] Last Admin: 08/24/23 11:26 Dose: 100 mls/hr Ondansetron HCl (Ondansetron Hcl 4 Mg/2 Ml Vial) 4 mg IVPUSH Q8H PRN PRN Reason: Nausea and Vomiting Sodium Chloride (0.9 % Sodium Chloride Flush 3 Ml Syringe) 3 ml IVFLUSH QSHIFT [facility] Home Medications ?Medication ?Instructions ?Recorded ?Confirmed ?Last Taken ?Type albuterol sulfate 90 mcg/actuation 2 puff inhalation Q4-6H PRN 04/30/20 03/14/23 Unknown History aerosol inhaler (Ventolin HFA) Shortness Of Breath amitriptyline 25 mg tablet 25 mg PO BEDTIME 04/30/20 03/14/23 Unknown History lidocaine 5 % topical patch 2 patch topical DAILY 04/30/20 03/14/23 Unknown History (Lidoderm) fluticasone propionate 50 1 spray intranasal DAILY allergies 07/16/21 03/14/23 Unknown History mcg/actuation nasal spray,suspension omeprazole 20 mg capsule,delayed 20 mg PO BID 07/16/21 03/14/23 Unknown History release gabapentin 300 mg capsule 600 mg PO QAM 12/07/21 03/14/23 03/13/23 History albuterol sulfate 2.5 mg/3 mL 2.5 mg inhalation Q4H PRN Dyspnea 03/14/23 03/14/23 Unknown History (0.083 %) solution for nebulization Physical Exam Vital Signs: Vital Signs: Last Vital Signs Temp 97.8 F 08/24/23 10:46 Pulse 76 08/24/23 10:46 Resp 22 H 08/24/23 11:26 BP 112/68 08/24/23 10:46 Pulse Ox 94 08/24/23 10:46 O2 Del Method Room Air 08/24/23 10:46 BMI result Body Mass Index 23.4 Const: Other: uncomfortable appearing General: alert Orientation/consciousness: patient oriented x3 Resp: Effort & Inspection: normal respiratory effort GI: Inspection: Yes distended (mild) Palpation (GI): Soft to palpation, Tenderness to palpation present (GI) (mild diffuse tenderness, more increased at midline lower abdomen ) with no rebound tenderness, no guarding and not rigid Percussion: Yes normal to percussion Skin: General skin exam: no rashes or lesions noted and no jaundice Neuro: General: patient oriented x3 Results Results Labs: Short CBC 08/24/23 Range/Units 08:28 WBC 16.4 H (4.8-10.8) X10*3/uL Hgb 17.1 H D (12.0-16.0) g/dl Hct 48.6 H D (37.0-47.0) % Plt Count 334 D (160-400) X10*3/uL BMP 08/24/23 08:28 Sodium 141 Potassium 3.7 Chloride 101 Carbon Dioxide 29 BUN 13 Creatinine 0.73 Calcium 10.5 H D Liver Function 08/24/23 Range/Units 08:28 Total Bilirubin 0.5 (0.0-1.0) mg/dL Direct Bilirubin 0.2 (0.0-0.5) mg/dL AST 23 (5-31) U/L ALT 17 (0-31) U/L Alkaline Phosphatase 123 H (39-117) U/L Albumin 4.7 (3.5-5.0) g/dL Abdomen CT scan report/results: report reviewed and image reviewed Assessment and Plan (1) Small bowel obstruction: Status: Acute Plan 58 year old female with hx of SBOs requiring enterolysis and small bowel resection presenting with abdominal pain, nausea and vomiting with CT scan showing dilated bowel loops. She will be admitted to the surgical service for further treatment of the SBO. She is nontoxic appearing with a benign abdominal exam without peritoneal signs. Will continue supportive measures for now including bowel rest and IVF, pain control. Will hold off on NGT unless develops nausea/vomiting again. Plan for SBFT to assess SBO tomorrow. Patient and daughter comfortable with plan. Quality Stroke Does the patient have a stroke diagnosis?: No VTE Prior VTE?: No VTE Risk Level:: Surgical - moderate VTE Device Contraindication: N/A - Device Ordered VTE Drug Contraindication: N/A - Med Ordered Procedures Date of Service Date of Service: 08/24/23
[2023-08-24] MEDS: HYDROmorphone HCl 1 MG/ML SYRINGE 0.5 MG IVPUSH ×2 (14:50→23:26)
[2023-08-24 15:17] LABS: Appearance Urine Clear; Color Urine Dark Yellow; Glucose Urine UA Negative (Negative); Leukocyte Esterase Urine Negative (Negative); Nitrite Urine Negative (Negative); Specific Gravity - Urine >= 1.030 (1.005-1.025); Urine Blood Negative (Negative); Urine Ketones Negative (Negative); Urine Protein Trace mg/dL (Neg-Trace)
--- NOTE | 2023-08-24 15:19 | PHA.MEDREC ---
Pharmacy Consult ? Medication Reconciliation Pharmacy has completed the medication reconciliation. Spoke to patient and daughter at bedside to confirm medication list.
[2023-08-24] MEDS: 0.9 % Sodium Chloride Flush 3 ML SYRINGE IVFLUSH (19:46)
[2023-08-25 03:16] VITALS: BP 121/60; PULSE 74; RESP 18; TEMP 36.3; O2SAT 98
[2023-08-25] MEDS: HYDROmorphone HCl 1 MG/ML SYRINGE 0.5 MG IVPUSH ×5 (03:29→20:19)
[2023-08-25] MEDS: 0.9 % Sodium Chloride 1,000 ML 100 ML IVCONT ×2 (03:34→21:32)
[2023-08-25 06:38] LABS: MANUAL DIFF FLAG NO
[2023-08-25 06:57] LABS: Basophils Absolute Auto 0.1 X10*3/uL (0.0-0.2); Basophils Percent Auto 0.6 % (0-2); Eosinophils Absolute Auto 0.2 X10*3/uL (0.0-0.4); Eosinophils Percent Auto 2.8 % (0-4); Hematocrit 35.7 % (37.0-47.0); Hemoglobin 12.3 g/dl (12.0-16.0); Imm Gran Abs Auto 0.02 X10*3/uL (0.00-0.03); Imm Gran Pct Auto 0.2 % (0.0-0.4); Lymphocytes Percent Auto 24.9 % (20-40); Mean Corpuscular HGB Conc 34.5 g/dl (31.0-35.0); Mean Corpuscular Hemoglobin 32.1 pg (27.0-33.0); Mean Corpuscular Volume 93.2 fL (80.0-98.0); Mean Platelet Volume 10.6 fL (9.4-12.3); Monocytes Percent Auto 12.7 % (2-11); Neutrophils Absolute Auto 4.8 x10*3/uL (2.0-8.3); Neutrophils Percent Auto 58.8 % (45-73); Platelet Count 259 X10*3/uL (160-400); Red Blood Count 3.83 X10*6/uL (4.20-5.50); Red Cell Distribution Width 12.7 % (11.0-16.0); White Blood Count 8.1 X10*3/uL (4.8-10.8)
[2023-08-25 07:05] LABS: Anion Gap 10 (12-20); Blood Urea Nitrogen 12 mg/dL (9-16); Carbon Dioxide 23 mmol/L (22-29); Chloride 114 mmol/L (96-108); Creatinine Clr Calc Pharmacy 88.7; Estimated Glomerular Filt Rate > 60; Glucose Random 85 mg/dL (60-115); Potassium 3.9 mmol/L (3.3-5.1); Sodium 143 mmol/L (135-145)
--- NOTE | 2023-08-25 07:07 | P.PNGS_ITS ---
Subjective Subjective Date of Service: 08/25/23 Interval history: Abdominal symptoms modestly improved. No gas/flatus or BM yet. White count down to 8.1 from 16 Physical Exam 2 Vital Signs: Vital Signs: Last Vital Signs Temp 97.3 F 08/25/23 03:16 Pulse 74 08/25/23 03:16 Resp 18 08/25/23 03:16 BP 121/60 08/25/23 03:16 Pulse Ox 98 08/25/23 03:16 O2 Del Method Room Air 08/25/23 03:16 BMI result Body Mass Index 20.4 GI: Other: Abdomen mildly distended. Minimal periumbilical tenderness. No evidence of any guarding, rebound, or rigidity. Objective Data Active Medications Enoxaparin Sodium (Enoxaparin Sodium 40 Mg/0.4 Ml Syringe) 40 mg SUBCUT Q24H NASH Hydromorphone HCl (Hydromorphone Hcl 1 Mg/Ml Syringe) 0.5 mg IVPUSH Q4H PRN; Protocol PRN Reason: Pain, Severe (Pain Scale 7-10) Last Admin: 08/25/23 03:29 Dose: 0.5 mg Documented By: MACY Sodium Chloride (Ns) 1,000 mls @ 100 mls/hr IVCONT .Q10H NASH Last Admin: 08/25/23 03:34 Dose: 100 mls/hr Documented By: MACY Ondansetron HCl (Ondansetron Hcl 4 Mg/2 Ml Vial) 4 mg IVPUSH Q8H PRN PRN Reason: Nausea and Vomiting Last Admin: 08/24/23 18:26 Dose: 4 mg Documented By: JACINTA Sodium Chloride (0.9 % Sodium Chloride Flush 3 Ml Syringe) 3 ml IVFLUSH QSHIFT [facility] Last Admin: 08/24/23 19:46 Dose: 3 ml Documented By: MACY Labs 08/25/23 06:10 08/25/23 06:10 Labs: Laboratory Results - last 24 hr 08/24/23 08/24/23 08/24/23 08:28 12:25 15:11 MCV 91.2 MCH 32.1 MCHC 35.2 H RDW 12.5 Plt Count 334 D MPV 10.1 Immature Gran % (Auto) 0.4 Neut % (Auto) 89.7 H Lymph % (Auto) 5.9 L [place] % (Auto) 3.5 Eos % (Auto) 0.1 Baso % (Auto) 0.4 Lymph # (Auto) 1.0 L [place] # (Auto) 0.6 Eos # (Auto) 0.0 Baso # (Auto) 0.1 Abs Immat Gran (auto) 0.06 H Absolute Neuts (auto) 14.7 H Absolute Nucleated RBC 0.000 Nucleated RBC % (auto) 0.0 Anion Gap 15 Estim Creat Clear Calc 80.5 Estimated GFR > 60 Random Glucose 168 H Lactic Acid 0.6 Calcium 10.5 H D Magnesium 1.8 Total Bilirubin 0.5 Direct Bilirubin 0.2 AST 23 ALT 17 Alkaline Phosphatase 123 H Total Protein 8.3 H Albumin 4.7 Lipase 12 Urine Color Dark Yellow Urine Appearance Clear Urine pH 7.0 Ur Specific [place] >= 1.030 H Urine Protein Trace Urine Glucose (UA) Negative Urine Ketones Negative Urine Blood Negative Urine Nitrite Negative Ur Leukocyte Esterase Negative Blood Type O Positive Antibody Screen NEGATIVE 08/25/23 06:10 MCV 93.2 MCH 32.1 MCHC 34.5 RDW 12.7 Plt Count 259 MPV 10.6 Immature Gran % (Auto) 0.2 Neut % (Auto) 58.8 Lymph % (Auto) 24.9 [place] % (Auto) 12.7 H Eos % (Auto) 2.8 Baso % (Auto) 0.6 Lymph # (Auto) 2.0 [place] # (Auto) 1.0 Eos # (Auto) 0.2 Baso # (Auto) 0.1 Abs Immat Gran (auto) 0.02 Absolute Neuts (auto) 4.8 Absolute Nucleated RBC 0.000 Nucleated RBC % (auto) 0.0 Anion Gap 10 L Estim Creat Clear Calc 88.7 Estimated GFR > 60 Random Glucose 85 Lactic Acid Calcium Magnesium Total Bilirubin Direct Bilirubin AST ALT Alkaline Phosphatase Total Protein Albumin Lipase Urine Color Urine Appearance Urine pH Ur Specific [place] Urine Protein Urine Glucose (UA) Urine Ketones Urine Blood Urine Nitrite Ur Leukocyte Esterase Blood Type Antibody Screen Procedures Date of Service Date of Service: 08/25/23 Progress Note: A&P Assessment and plan (1) Small bowel obstruction: Status: Acute (2) Abdominal pain: Status: Acute (3) Vomiting: Status: Acute Plan For small-bowel follow-through today. Further interventions and studies will be directed by the patient's clinical course and the results of the above-mentioned study. Time Spent With Patient Time: Total time managing care of this patient today ____ minutes. Quality Stroke Does the patient have a stroke diagnosis?: No VTE Prior VTE?: No VTE Risk Level:: Surgical - moderate VTE Device Contraindication: N/A - Device Ordered VTE Drug Contraindication: N/A - Med Ordered
[2023-08-25 07:18] LABS: Calcium 8.4 mg/dL (8.4-10.2)
[2023-08-25 07:41] VITALS: BP 109/63; PULSE 71; RESP 18; TEMP 36.3; O2SAT 98
--- NOTE | 2023-08-25 11:42 | MHC.CM.PN ---
CM MET WITH PT/LEAD CONSULTANT. LIVES WITH FAMILY. INDEPENDENT WITH MOBILITY. PT DECLINES HCP AT THIS TIME BUT WILL TAKE TIME TO THINK ABOUT COMPLETING ONE. PCP DR. UNDERWOOD DP: HOME, NO SERVICES ANTICIPATED. PT HAS OWN RIDE HOME. CM WILL CONTINUE TO FOLLOW FOR ANY CHANGE IN DC PLAN/NEEDS
[2023-08-25 15:09] VITALS: BP 114/58; PULSE 74; RESP 14; TEMP 36.6; O2SAT 97
[2023-08-25] MEDS: Gabapentin 300 MG CAPSULE PO ×2 (16:03→20:18)
[2023-08-25] MEDS: Enoxaparin Sodium 40 MG/0.4 ML SYRINGE SUBCUT (16:03)
[2023-08-25] MEDS: Omeprazole 40 MG CAPSULE.DR PO (16:03)
[2023-08-25] MEDS: 0.9 % Sodium Chloride Flush 3 ML SYRINGE IVFLUSH (16:03)
[2023-08-25 19:21] VITALS: BP 111/53; PULSE 70; RESP 18; TEMP 36.4; O2SAT 95
[2023-08-25] MEDS: Amitriptyline HCl 25 MG TABLET PO (20:18)
[2023-08-25 20:19] VITALS: RESP 18
[2023-08-26 02:50] VITALS: BP 138/64; PULSE 65; RESP 16; TEMP 36.1; O2SAT 95
[2023-08-26] MEDS: HYDROmorphone HCl 1 MG/ML SYRINGE 0.5 MG IVPUSH ×2 (03:44→08:20)
[2023-08-26] MEDS: Omeprazole 40 MG CAPSULE.DR PO (03:44)
[2023-08-26] MEDS: 0.9 % Sodium Chloride 1,000 ML 100 ML IVCONT (03:44)
[2023-08-26 07:21] VITALS: BP 132/58; PULSE 67; RESP 16; TEMP 36.2; O2SAT 96
[2023-08-26] MEDS: Fluticasone/Vilanterol 200/25 BLST.W.DEV 1 PUFF INHALE (07:37)
[2023-08-26 07:38] VITALS: PULSE 67; RESP 15; O2SAT 94
--- NOTE | 2023-08-26 07:51 | P.PNGS_ITS ---
Subjective Subjective Date of Service: 08/26/23 <Dora Victoria PA-C - Last Filed: 08/26/23 07:54> 08/26/23 <Juan C Kent MD - Last Filed: 08/26/23 14:07> Interval history: Feels well. Denies abd pain. Passing flatus and moving bowels. Tolerating clear liquids. <Dora Victoria PA-C - Last Filed: 08/26/23 07:54> Physical Exam 2 Vital Signs: Vital Signs: Last Vital Signs Temp 97.1 F 08/26/23 07:21 Pulse 67 08/26/23 07:38 Resp 15 08/26/23 07:38 BP 132/58 L 08/26/23 07:21 Pulse Ox 96 08/26/23 07:21 O2 Del Method Room Air 08/26/23 07:21 BMI result Body Mass Index 20.4 <Dora Victoria PA-C - Last Filed: 08/26/23 07:54> Const: General: comfortable, no acute distress and alert <Dora Victoria PA-C - Last Filed: 08/26/23 07:54> Orientation/consciousness: patient oriented x3 <DOMINIQUE Diaz Last Filed: 08/26/23 07:54> GI: Inspection: No distended <DOMINIQUE Diaz Last Filed: 08/26/23 07:54> Palpation (GI): Soft to palpation, nontender and no guarding <Dora Victoria PA-C - Last Filed: 08/26/23 07:54> Skin: General skin exam: no rashes or lesions noted <DOMINIQUE Diaz Last Filed: 08/26/23 07:54> Neuro: General: patient oriented x3 <DOMINIQUE Diaz Last Filed: 08/26/23 07:54> Objective Data Active Medications Albuterol Sulfate (Albuterol Sulfate (0.083%) 2.5 Mg/3 Ml Vial.Neb) 2.5 mg INHALE Q4H PRN PRN Reason: Dyspnea Amitriptyline HCl (Amitriptyline Hcl 25 Mg Tablet) 25 mg PO BEDTIME NASH Last Admin: 08/25/23 20:18 Dose: 25 mg Documented By: TASHA Enoxaparin Sodium (Enoxaparin Sodium 40 Mg/0.4 Ml Syringe) 40 mg SUBCUT Q24H [facility] Last Admin: 08/25/23 16:03 Dose: 40 mg Documented By: ERIC Fluticasone/Vilanterol (Fluticasone/Vilanterol 200/25 Blst.W.Dev) 1 puff INHALE RDAILY [facility] Last Admin: 08/26/23 07:37 Dose: 1 puff Documented By: JEANNINE Gabapentin (Gabapentin 300 Mg Capsule) 300 mg PO TID [facility] Last Admin: 08/25/23 20:18 Dose: 300 mg Documented By: TASHA Hydromorphone HCl (Hydromorphone Hcl 1 Mg/Ml Syringe) 0.5 mg IVPUSH Q4H PRN; Protocol PRN Reason: Pain, Severe (Pain Scale 7-10) Last Admin: 08/26/23 03:44 Dose: 0.5 mg Documented By: TASHI Sodium Chloride (Ns) 1,000 mls @ 100 mls/hr IVCONT .Q10H [facility] Last Admin: 08/26/23 03:44 Dose: 100 mls/hr Documented By: TASHI Omeprazole (Omeprazole 40 Mg Capsule.Dr) 40 mg PO DAILY@0630 [facility] Last Admin: 08/26/23 03:44 Dose: 40 mg Documented By: TASHI Ondansetron HCl (Ondansetron Hcl 4 Mg/2 Ml Vial) 4 mg IVPUSH Q8H PRN PRN Reason: Nausea and Vomiting Last Admin: 08/24/23 18:26 Dose: 4 mg Documented By: JACINTA Sodium Chloride (0.9 % Sodium Chloride Flush 3 Ml Syringe) 3 ml IVFLUSH QSHIFT [facility] Last Admin: 08/26/23 07:06 Dose: Not Given Documented By: HAL Non-Admin Reason: IV Running <Dora Victoria PA-C - Last Filed: 08/26/23 07:54> Labs CBC & Chem 7: 08/25/23 06:10 08/25/23 06:10 <Dora Victoria PA-C - Last Filed: 08/26/23 07:54> Procedures Date of Service Date of Service: 08/26/23 <Dora Victoria PA-C - Last Filed: 08/26/23 07:54> 08/26/23 <Juan C Kent MD - Last Filed: 08/26/23 14:07> Progress Note: A&P Assessment and plan (1) Small bowel obstruction: Status: Acute <Dora Victoria PA-C - Last Filed: 08/26/23 07:54> Assessment and Plan: SBFT with contrast in colon yesterday. Tolerating liquids this morning and now with evidence of GI function. Abd benign. Will advance to solid diet. If tolerating, stable for dc to home. Patient comfortable with plan. <Dora Victoria PA-C - Last Filed: 08/26/23 07:54> Time Spent With Patient Time: Total time managing care of this patient today ____ minutes. <Dora Victoria PA-C - Last Filed: 08/26/23 07:54> Quality Stroke Does the patient have a stroke diagnosis?: No <Dora Victoria PA-C - Last Filed: 08/26/23 07:54> VTE Prior VTE?: No <Dora Victoria PA-C - Last Filed: 08/26/23 07:54> VTE Risk Level:: Surgical - moderate <DOMINIQUE Diaz Last Filed: 08/26/23 07:54> VTE Device Contraindication: N/A - Device Ordered <Dora Victoria PA-C - Last Filed: 08/26/23 07:54> VTE Drug Contraindication: N/A - Med Ordered <Dora Victoria PA-C - Last Filed: 08/26/23 07:54>
[2023-08-26] MEDS: Gabapentin 300 MG CAPSULE PO (08:20)
--- NOTE | 2023-08-26 11:20 | MHC.CM.PN ---
EMR REVIEWED. PT TOLERATING CLEAR LIQUID DIET, DIET TO BE ADVANCED AND MAY DC IF ABLE TO TOLERATE. CM WILL CONTINUE TO FOLLOW FOR ANY CHANGE TO DC PLAN/NEEDS.
--- NOTE | 2023-08-26 14:07 | MHC.CM.PN ---
DP: PT HAS BEEN MEDICALLY CLEARED FOR DC HOME, NO SERVICES. PT HAS OWN RIDE HOME.
--- NOTE | 2023-08-29 11:06 | PM.DS ---
DS: Providers Provider Date of Service: 08/26/23 Date of admission: 08/24/23 14:31 Date of discharge: 08/26/23 Primary care physician: Lurdes Lo MD Attending physician on admission: Juan C Kent Attending physician on discharge: Juan C Kent DS: Diagnosis Discharge Diagnosis (1) Small bowel obstruction: Status: Acute DS: Summary Hospital Course Hospital Course: HPI AT ADMISSION: Leda Curtis is a 58 year old female with PMH of GERD, asthma, constipation who presented with complaints of abdominal pain, nausea and vomiting. Patient has history of SBOs requiring laparotomy, lysis of adhesions, and two small-bowel resections in 2020. Last admission here for SBO was 03/31 and she resolved with nonoperative management. She reports with this current episode she developed mid abdominal pain two days ago and this increased in severity this morning and became more diffuse. The pain was associated with nausea and has had multiple episodes of vomiting. She reports feeling bloated for more than a week. She has not been passing significant flatus and last normal BM was yesterday morning. Due to the severity of her pain and persistent vomiting, she called an ambulance. In the ED, work up included CBC, BMP, LFTs which were significant for a leukocytosis of 16.4. Lactic acid is normal. CT scan showed distended stomach and dilated fluid-filled small bowel loops with decompressed distal small bowel loop without definite zone of transition seen, concerning for SBO. She reports some improvement in pain following analgesics but continues to deny any flatus. She denies sick contacts, diarrhea, fever, chills. HOSPITAL COURSE: She was admitted to the surgical service for further treatment of the SBO. She had an overall benign abdominal exam and therefore supportive measures were continued. NGT insertion was held. SBFT was obtained which showed passage of contrast into the right colon. Her symptoms improved and she began passing flatus. Her diet was advanced following this to clear liquids and then solids. She began to have bowel movements. On the day of discharge, she was tolerating a solid diet without abdominal pain, nausea or vomiting and had good GI function. Her abdomen remained benign. She was discharged to home on 08/26/23 in stable condition. Status at Discharge Functional status at discharge: independent ambulation Overall status at discharge: patient is back to baseline Time Attestation Discharge Coordination Time (in mins): 30 Quality: Safe Use of Opioids Does Pt have an Active Cancer Diagnosis on the Problem List?: No Quality: Stroke Does the patient have a stroke diagnosis?: No Physical Exam Vital Signs: Vital Signs: Last Vital Signs Temp 97.1 F 08/26/23 07:21 Pulse 67 08/26/23 07:38 Resp 15 08/26/23 07:38 BP 132/58 L 08/26/23 07:21 Pulse Ox 96 08/26/23 07:21 O2 Del Method Room Air 08/26/23 07:21 BMI result Body Mass Index 20.4 Const: General: comfortable, no acute distress and alert Orientation/consciousness: patient oriented x3 GI: Inspection: No distended Palpation (GI): Soft to palpation, nontender and no guarding Skin: General skin exam: no rashes or lesions noted Neuro: General: patient oriented x3 DS: Data Data Completed and Pending Completed studies during hospitalization [Text1]: Procedures Excision of Jejunum, Open Approach (03/22/21) Release Peritoneum, Open Approach (03/22/21) Release Small Intestine, Open Approach (03/22/21) Discharge Plan Discharge Anticipated Discharge Date/Time: 08/26/23 12:13 Patient Disposition: Home, Self-Care Discharge Diagnosis: SBO Referrals: Lurdes Lo MD [Primary Care Provider] - 1 Week Discharge Medications: Continued fluticasone furoate-vilanterol [Breo Ellipta] 200-25 mcg/dose blister with device 1 inh inhalation DAILY 30 Days Qty: 60 11RF albuterol sulfate 2.5 mg /3 mL (0.083 %) Solution For Nebulization 2.5 mg INHALATION Q4H PRN (Reason: Dyspnea) ondansetron 4 mg Tablet,Disintegrating 4 mg PO Q6H PRN (Reason: Nausea And Vomiting) amitriptyline 25 mg tablet 25 mg PO BEDTIME lidocaine [Lidoderm] 5 % adhesive patch,medicated 2 patch topical DAILY Rx Instructions: leave on most painful area for up to 12 hrs gabapentin 300 mg capsule 300 mg PO TID omeprazole 20 mg capsule,delayed release(DR/EC) 40 mg PO DAILY PRN (Reason: Acid Reflux) Discharge Orders: Discharge Order (Routine); Ordered 08/26/23 Ordered By: Dora Esme Diet: Advance to usual diet Activity on Discharge: As tolerated Stand Alone Forms: Patient Portal Discharge page Print Language: Ecuadorean Activity Restrictions/Additional Instructions: Follow up with your PCP upon discharge. Call Your Doctor If: ? ? -Your temperature exceeds 101.5? F? ? ? -You experience excessive pain or swelling ? ? -You have an unexpected reaction to medication ? ? -You experience continued vomiting/nausea Care Plan Goals: Return to baseline activity. Health Concerns: SBO Plan of Treatment: Supportive measures Assessment: Resolved, patient improved and stable. Discharge Date/Time: 08/26/23 15:04
== END 2023-08-26 15:04 | disposition home or self-care (01) | DRG 247 ==
LOC: HO.ED 13:15 → HO.EDOVER 14:36 → HO.S3 17:54
PROVIDERS: Admitting Provider Physician Assistant Surgical; Emergency Provider Emergency Medicine; PCP Family Medicine; Visit Provider Physician Assistant Surgical
DX: K56.609 Unspecified intestinal obstruction, unspecified as to partial versus complete obstruction (principal); M32.9 Systemic lupus erythematosus, unspecified; F17.210 Nicotine dependence, cigarettes, uncomplicated; J45.909 Unspecified asthma, uncomplicated; K21.9 Gastro-esophageal reflux disease without esophagitis; Z71.6 Tobacco abuse counseling; Z79.51 Long term (current) use of inhaled steroids; Z79.899 Other long term (current) drug therapy
CPT/HCPCS: 36415; 74177; 74250; 80048; 80076; 81003; 83605; 83690; 83735; 85025; 86850; 86900; 86901; 94640; 99221; 99285; C9113; J0737; J1170; J1200; J1650; J2405; Q9967

== ENCOUNTER 2023-08-24 14:31 | Outpatient (BNV) | payer MEDICAID, SELFPAY | END 2023-08-25 07:30 | PROVIDERS: Admitting Provider Physician Assistant Surgical; Emergency Provider Emergency Medicine; PCP Family Medicine; Visit Provider Radiology Diagnostic Radiology | DX: K56.609 Unspecified intestinal obstruction, unspecified as to partial versus complete obstruction (principal) | CPT/HCPCS: 74250 ==

== ENCOUNTER → 2023-08-24 14:31 | Outpatient (BNV) | payer MEDICAID, SELFPAY | PROVIDERS: Admitting Provider Physician Assistant Surgical; Emergency Provider Emergency Medicine; PCP Family Medicine; Visit Provider Physician Assistant Surgical | DX: K56.609 Unspecified intestinal obstruction, unspecified as to partial versus complete obstruction (principal); R10.84 Generalized abdominal pain; R11.2 Nausea with vomiting, unspecified | CPT/HCPCS: 99222; 99233; 99238 ==

== ENCOUNTER 2023-09-07 11:01 | Outpatient (REF) | payer MEDICAID, SELFPAY ==
--- NOTE | ~2023-09-07 | XR_ITS ---
EXAM: X-RAYS BILATERAL SHOULDERS CLINICAL INFORMATION: Bilateral shoulder pain, positive impingement. Order states chronic pain of both shoulders, bilateral arm pain, positive impingement COMPARISON: 02/21/2015 left shoulder. TECHNIQUE: 4 views of each shoulder. FINDINGS: Left shoulder: Acromioclavicular and glenohumeral alignment preserved. No abnormal soft tissue calcifications identified adjacent to the humeral head. Narrowing of the subacromial space. Right shoulder: Acromioclavicular and glenohumeral alignment preserved. Sclerotic focus overlying the upper aspect of the right glenoid/sacrum, possibly a bone island versus soft tissue calcification less likely. Narrowing of the subacromial space. XR/XR shoulder RT min 2V IMPRESSION: 1. Sclerotic focus overlying the upper aspect of the right glenoid/sacrum, possibly a bone island versus soft tissue calcification less likely. 2. Narrowing of the bilateral subacromial spaces.
--- NOTE | ~2023-09-07 | XR_ITS ---
EXAM: X-RAYS BILATERAL SHOULDERS CLINICAL INFORMATION: Bilateral shoulder pain, positive impingement. Order states chronic pain of both shoulders, bilateral arm pain, positive impingement COMPARISON: 02/21/2015 left shoulder. TECHNIQUE: 4 views of each shoulder. FINDINGS: Left shoulder: Acromioclavicular and glenohumeral alignment preserved. No abnormal soft tissue calcifications identified adjacent to the humeral head. Narrowing of the subacromial space. Right shoulder: Acromioclavicular and glenohumeral alignment preserved. Sclerotic focus overlying the upper aspect of the right glenoid/sacrum, possibly a bone island versus soft tissue calcification less likely. Narrowing of the subacromial space. XR/XR shoulder LT min 2V IMPRESSION: 1. Sclerotic focus overlying the upper aspect of the right glenoid/sacrum, possibly a bone island versus soft tissue calcification less likely. 2. Narrowing of the bilateral subacromial spaces.
== END 2023-09-07 11:02 | disposition home or self-care (01) ==
LOC: HO.HHCX 11:01
PROVIDERS: Visit Provider Family Medicine
DX: M25.511 Pain in right shoulder (principal); M25.512 Pain in left shoulder; M79.601 Pain in right arm; M79.602 Pain in left arm; G89.29 Other chronic pain
CPT/HCPCS: 73030

== ENCOUNTER 2023-09-27 12:04 | Outpatient (REF) | payer MEDICAID, SELFPAY | END 2023-09-27 12:05 | disposition home or self-care (01) | LOC: HO.MAMMO 12:04 | PROVIDERS: Visit Provider Family Medicine | DX: Z12.31 Encounter for screening mammogram for malignant neoplasm of breast (principal) | CPT/HCPCS: 77063; 77067 ==

== ENCOUNTER → 2023-09-27 12:15 | Outpatient (BNV) | payer MEDICAID, SELFPAY | PROVIDERS: Visit Provider Radiology Diagnostic Radiology | DX: Z12.31 Encounter for screening mammogram for malignant neoplasm of breast (principal) | CPT/HCPCS: 77063; 77067 ==

== ENCOUNTER 2023-10-27 11:14 | Outpatient (AMB) | payer MEDICAID, SELFPAY ==
--- NOTE | 2023-10-27 11:19 | MHC.OFFVIS ---
Vital Signs 10/27/23 11:19 Height 5 ft 3 in Intake Visit Reasons: newprob- Chronic pain of B/L Shoulders Intake Note: Leda 57 yr old left hand dominant British speaking female, presents today for an evaluation of bilateral shoulder pain. Patient reports the pain starting about 1 month ago. She states the pain is intense and sharp starting at the shoulder and going down to her elbows. Allergies tramadol [TRAMADOL] Allergy (Unknown, Verified 10/27/23 11:20) NAUSEA & VOMITING acetaminophen [From Tylenol] Allergy (Verified 10/27/23 11:20) Nausea and Vomiting Medication List - Last Reconciled 10/27/23 by Lorrie Flood PA-C albuterol sulfate 2.5 mg inhalation Q4H PRN amitriptyline 25 mg PO BEDTIME fluticasone furoate-vilanterol 200-25 mcg/dose (Breo Ellipta) 1 inh inhalation DAILY 30 days gabapentin 300 mg PO TID lidocaine 5% (Lidoderm) 2 patches topical DAILY omeprazole 40 mg PO DAILY PRN ondansetron 4 mg PO Q6H PRN HPI HPI newprob- Chronic pain of B/L Shoulders: Details: 58-year-old left hand dominant female who presents 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 She states she has intense sharp pain and itchiness in her shoulder that radiates to her elbows. She also experiences numbness and tingling in his shoulder and neck area. [facility] Medical History Premature menopause History of Helicobacter pylori infection Nicotine dependence, cigarettes, uncomplicated Allergies Asthma Constipation Moderate malnutrition Pulmonary nodules Colitis Acid reflux Vitamin D deficiency Osteoporosis (~2017) Migraines Lupus Osteoarthritis Fibromyalgia Surgical History History of appendectomy (~1982) History of tonsillectomy History of removal of ovarian cyst History of hysterectomy History of resection of small bowel (~2020) History of colonoscopy History of esophagogastroduodenoscopy (EGD) History of elbow surgery (~2010) Family History Father Fibromyalgia Osteoporosis Mother Stroke Social History Household Members: Family Housing: Apartment Do you presently have visiting nurse or other home services: No Alcohol intake: never Comment: Patient sleeping Patient Tobacco Use Status: Current everyday Tobacco user Tobacco use type: Cigarette Cigarette Packs Per Day: 1 Cigarettes Per Day: 20.0 Years Smoked: 23 Second Hand Smoke Exposure: Yes service: No Current occupational status: disabled 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 Tenderness over the bicipital groove and along the deltoid region of the shoulder. Forward flexion to 175, external rotation to 90, internal rotation to S1. 5/5 RTC strength. Positive George and cross body abduction. NVI. Results Reviewed Results Reviewed: XR shoulder LT min 2V IMPRESSION: 1. Sclerotic focus overlying the upper aspect of the right glenoid/sacrum, possibly a bone island versus soft tissue calcification less likely. 2. Narrowing of the bilateral subacromial spaces. Assessment & Plan Assessment & Plan (1) Tendonitis of both shoulders: Code(s): M77.8 - Other enthesopathies, not elsewhere classified Category: Medical Plan We discussed options which include PT, NSAIDs and injections. The patient will defer on the injection today and proceed with PT and NSAIDs. If symptoms persist, she will contact me for an injection, otherwise, PRN. Orders: Orders PT Evaluation and Treatment Today M77.8 - Other enthesopathies, not elsewhere classified Patient Instructions: Scribed for Lorrie Flood PA-C, by Julio Cook medical health researcher, on 10/27/2023 at 11:15 AM EST.? I, Lorrie Flood PA-C, have personally reviewed and agree with the information entered by the scribe. Coding Level of Care Code Est Pt Level 3 (22539) Diagnoses Tendonitis of both shoulders M77.8
== END 2023-10-27 13:06 | disposition home or self-care (01) ==
PROVIDERS: PCP Family Medicine; Visit Provider Physician Assistant
DX: M25.511 Pain in right shoulder (principal); M25.512 Pain in left shoulder; M77.8 Other enthesopathies, not elsewhere classified
CPT/HCPCS: 99213

== ENCOUNTER → 2023-10-27 11:14 | Outpatient (BNVA) | payer MEDICAID, SELFPAY | PROVIDERS: PCP Family Medicine; Visit Provider Physician Assistant | DX: M77.8 Other enthesopathies, not elsewhere classified (principal) | CPT/HCPCS: 99212 ==

== ENCOUNTER 2023-11-21 12:50 | Emergency (ER) | payer MEDICAID, SELFPAY ==
[2023-11-21 12:52] VITALS: BP 130/80; PULSE 91
[2023-11-21 12:55] VITALS: BP 130/76; PULSE 71; RESP 16; TEMP 36.6; O2SAT 100; BMI 21.6
--- NOTE | 2023-11-21 14:12 | ED_ITS ---
HPI - Altered Mental Status General Chief Complaint: Altered Mental Status Stated Complaint: AMS slurred speech ? OD on gabapentin per EMS Time Seen by Provider: 11/21/23 13:35 Source: patient Mode of arrival: EMS Limitations: no limitations History of Present Illness ED Provider: santana NGUYEN narrative: Patient's history of chronic pain take gabapentin 300 mg 3 times a day today at 09:00 o'clock took 2 tablets of 1 went to see PCP was slightly groggy and increased drowsiness seen by PCP sent the patient here because of her allergy on arrival in the ER patient is easily arousable no deficit feeling much better vitals stable patient has history of same in the past Related Data Home Medications ?Medication ?Instructions ?Recorded ?Confirmed amitriptyline 25 mg tablet 25 mg PO BEDTIME 04/30/20 10/27/23 lidocaine 5 % topical patch 2 patch topical DAILY 04/30/20 10/27/23 (Lidoderm) omeprazole 20 mg capsule,delayed 40 mg PO DAILY PRN Acid Reflux 07/16/21 10/27/23 release gabapentin 300 mg capsule 300 mg PO TID 12/07/21 10/27/23 albuterol sulfate 2.5 mg/3 mL 2.5 mg inhalation Q4H PRN Dyspnea 03/14/23 10/27/23 (0.083 %) solution for nebulization ondansetron 4 mg disintegrating 4 mg PO Q6H PRN Nausea And Vomiting 08/24/23 10/27/23 tablet Previous Rx's ?Medication ?Instructions ?Recorded fluticasone furoate 200 1 inh inhalation DAILY 30 days #60 12/27/22 mcg-vilanterol 25 mcg/dose ea inhalation powder (Breo Ellipta) Allergies Allergy/AdvReac Type Severity Reaction Status Date / Time acetaminophen [From Tylenol] Allergy Unknown Nausea and Verified 11/21/23 13:08 Vomiting tramadol [TRAMADOL] Allergy Unknown NAUSEA & Verified 11/21/23 13:08 VOMITING PMFSH Past Medical History Medical History Premature menopause History of Helicobacter pylori infection Nicotine dependence, cigarettes, uncomplicated Allergies Asthma Constipation Moderate malnutrition Pulmonary nodules Colitis Acid reflux Vitamin D deficiency Osteoporosis (~2018) Migraines Lupus Osteoarthritis Fibromyalgia Surgical History History of appendectomy (~1982) History of tonsillectomy History of removal of ovarian cyst History of hysterectomy History of resection of small bowel (~2020) History of colonoscopy History of esophagogastroduodenoscopy (EGD) History of elbow surgery (~2010) Family History Family History Father Fibromyalgia Osteoporosis Mother Stroke Social History Social History Household Members: Family Housing: Apartment Do you presently have visiting nurse or other home services: No Alcohol intake: never Comment: Patient sleeping Patient Tobacco Use Status: Current everyday Tobacco user Tobacco use type: Cigarette Cigarette Packs Per Day: 1 Cigarettes Per Day: 20.0 Years Smoked: 23 Second Hand Smoke Exposure: Yes Advance Directives: No Advance Directives Information Provided: No service: No Current occupational status: disabled 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 Physical Exam ED Vital Signs: Vital Signs - 24 hr 11/21/23 12:55 Temperature 97.9 F Pulse Rate 71 Respiratory Rate 16 Blood Pressure 130/76 Pulse Oximetry 100 Oxygen Delivery Method Room Air BMI result Body Mass Index 21.6 Appearance: Alert. Oriented X3. No acute distress. Eyes: PERRLA, No Nystagmus ENT: Pharynx normal. Oral Mucosa moist Neck: Normal inspection. Neck supple. CVS: Normal heart rate and rhythm. Pulses normal. Respiratory: No respiratory distress. Equal air entry bilateral, no wheezing/rales/rhonchi Abdomen: Soft and nontender. Bowel sounds are present, no mass palpable, no CVA tenderness Skin: Skin warm and dry. Normal skin color. Normal skin turgor. Extremities: No lower extremity edema. No calf tenderness Neuro: Oriented X 3. No motor deficit. No sensory deficit.No cerebellar signs , cranial nerves II-XII intact Medical Decision Making Medical Decision Making MDM Narrative: Patient is alert back to baseline no focal deficits such history of CVA patient understood not take extra dose of medication prescribed follow with PCP Discharge Plan Discharge Clinical Impression: Adverse effects of medication Patient Disposition: Home, Self-Care Instructions: Medication Safety for Older Adults (ED) Additional Instructions: Take medication as prescribed Do not take extra medications without consulting your physician Drink plenty of fluids Prescriptions: No Action fluticasone furoate-vilanterol [Breo Ellipta] 200-25 mcg/dose blister with device 1 inh inhalation DAILY 30 Days Qty: 60 11RF albuterol sulfate 2.5 mg /3 mL (0.083 %) Solution For Nebulization 2.5 mg INHALATION Q4H PRN (Reason: Dyspnea) ondansetron 4 mg Tablet,Disintegrating 4 mg PO Q6H PRN (Reason: Nausea And Vomiting) amitriptyline 25 mg tablet 25 mg PO BEDTIME lidocaine [Lidoderm] 5 % adhesive patch,medicated 2 patch topical DAILY Rx Instructions: leave on most painful area for up to 12 hrs gabapentin 300 mg capsule 300 mg PO TID omeprazole 20 mg capsule,delayed release(DR/EC) 40 mg PO DAILY PRN (Reason: Acid Reflux) Print Language: Turkmen
[2023-11-21 14:58] VITALS: BP 130/76; PULSE 71; RESP 16; TEMP 36.6; O2SAT 100
== END 2023-11-21 14:59 | disposition home or self-care (01) ==
PROVIDERS: Emergency Provider Internal Medicine; PCP Family Medicine
DX: R41.82 Altered mental status, unspecified (principal); T42.6X5A Adverse effect of other antiepileptic and sedative-hypnotic drugs, initial encounter; Y92.9 Unspecified place or not applicable; F17.210 Nicotine dependence, cigarettes, uncomplicated; Z79.899 Other long term (current) drug therapy
CPT/HCPCS: 99282

== ENCOUNTER 2024-05-30 08:32 | Outpatient (REF) | payer MEDICAID, SELFPAY ==
--- OUTSIDE RECORDS SUMMARY | 2024-05-30 08:44 | XMS_ITS | Encounter Summary ---
Author Organization [employer] Address [address] [facility] [address] [place] [address] Care Team Providers Care Salon Shampoo Assistant Name Role Phone Lurdes Lo MD Primary Care Provider [phone] Ahmet Lomabrdo PharmD Unavailable [phone] Reason for Visit * Reason Comments Med Refill Encounter Details Date Type Department Care Team (Late st Contact Info) Description 05/06/2024 Refill [facility] [address] [place], [place] [phone] Lurdes Lo MD [address] [place], [place] [phone] Dyspepsia Social History Tobacco Use Types Packs/Day Years Used Date Smoking Tobacco: Every Day Cigarettes 1 30 Passive Smoke Exposure: Current Smokeless Tobacco: Never Alcohol Use Standard Drinks/Week Comments Never 0 (1 standard drink = 0.6 oz pur e alcohol) Depression Answer Date Recorded Patient Health Questionnaire-9 Score 8 02/13/2024 Patient Health Questionnaire-9 Score 8 02/13/2024 Last PHQ-9: Questionnaire Data Not on file 1 Housing Stability Answer Date Recorded What is your housing situation today? I have ramses jarrett 02/21/[address] you li ve. Do you have problems with any of the following? None of the above 02/21/2023 Food Insecurity Answer Date Recorded Within the past 12 months, y ou worried that your food would run out before you got money to buy more: Never True 02/21/2023 Within the past 12 months,th e food you bought just didn't last and you didn't have enough money to get more: Never True Transportation Answer Date Recorded In the past 12 months, has l ack of transportation kept you from medical appts, meetings, work or from getting things needed for daily living? No 02/21/2023 Utilities Answer Date Recorded In the past 12 months, has t he electric, gas, oil or water company threatened to shut off services in your home? No 02/21/2023 Depression Answer Date Recorded Patient Health Questionnaire-2 Score 2 02/13/2024 Internet Access Answer Date Recorded Internet Access Q1 Yes 01/07/2024 Internet Access Q2 Not on file 01/07/2024 Comments Unknown Sex and Gender Information Value Date Recorded Sex Assigned at Female 03/08/2022 10:23 AM EDT Legal Sex Female 10:23 AM EDT Gender Identity Female 03/08/2022 10:23 AM EDT Sexual Orientation Straight 03/08/2022 10 :23 AM EDT documented as of this encounter Plan of Treatment Not on file documented as of this encounter Goals Goal Patient Goal Type Associated Problems Recent Progress Patient-Stated? Author Quit using tobacco (cigarettes, smokeless, etc) Tobacco Use No Ahmet Lombardo, PharmD documented as of this encounter Visit Diagnoses Diagnosis Dyspepsia Dyspepsia and other specified disorders of function of stomach documented in this encounter Additional Health Concerns Assessment Noted Time PHQ-9 Depression Total Score: 8 02/13/20 24 11:13 AM EDT documented as of this encounter Care Teams Salon Shampoo Assistant Relationship Specialty Start Date End Date Lurdes Lo MD [address] [place] [address] PCP - General Family Medicine 08/09/22 Ahmet Lombardo, PharmD [address] [place] [address] Pharmacist Internal Medicine 09/03/22 Deepti Boo Crab SteamerBaggage Agent Supervisor 06/13/23 [facility] 03/05/24 documented as of this encounter
--- OUTSIDE RECORDS SUMMARY | 2024-05-30 08:44 | XMS_ITS | Clinical Summary ---
Author Organization [employer] [facility] it Address [address] [place] [address] Care Team Providers Care Provider Education Specialist Name Role Phone Unavailable Primary Care Provider Unavailabl e Social History Tobacco Use Types Packs/Day Years Used Date Smoking Tobacco: Never Assessed Sex and Gender Information Value Date Recorded Sex Assigned at Not on file Gender Identity Not on file Sexual Orientation Not on file Plan of Treatment Health Maintenance Due Date Last Done Comments Breast Cancer Screening 1965 DTaP,Tdap,and Td Vaccines (1 - Tdap) 1986 Hepatitis B Vaccines (1 of 3 - 19+ 3-dose series) 1986 Cervical Cancer Screening: P ap Smear 01/30/1988 Zoster Vaccines (1 of 2) 2017 COVID-19 Vaccine ( - 2023-2 5 season) 2024 Influenza Vaccine (#1) 2024 HIB Vaccines Aged Out No longer eligi ble based on patient's age to complete this topic HPV Vaccines Aged Out No longer eligi ble based on patient's age to complete this topic Hepatitis A Vaccines Aged Out No long er eligible based on patient's age to complete this topic IPV Vaccines Aged Out No longer eligi ble based on patient's age to complete this topic MMR Vaccines Aged Out No longer eligi ble based on patient's age to complete this topic Meningococcal ACWY Vaccine Aged Out N o longer eligible based on patient's age to complete this topic Pneumococcal Vaccine: Pediat rics (0 to 5 Years) and At-Risk Patients (6 to 64 Years) Aged Out No longer eligible b ased on patient's age to complete this topic RSV Immunization Patients Un olena 20 months Aged Out No longer eligible b ased on patient's age to complete this topic Varicella Vaccines Aged Out No longer eligible based on patient's age to complete this topic
--- OUTSIDE RECORDS SUMMARY | 2024-05-30 08:44 | XMS_ITS | Encounter Summary ---
Author Organization [employer] Address [address] [facility] [address] [place] [address] Care Team Providers Care Electric Motors Salesperson Name Role Phone Lurdes Lo MD Primary Care Provider [phone] Ahmet Lombardo PharmD Unavailable [phone] Reason for Visit * Reason Onset Date Comments Appointment 03/08/2023 Encounter Details Date Type Department Care Team (Late st Contact Info) Description 03/08/2023 Telephone [facility] [address] [place] [address] Jayashree Kellogg DDS [address] [place], [place] [phone] Appointment Social History Tobacco Use Types Packs/Day Years Used Date Smoking Tobacco: Every Day Cigarettes 1 30 Passive Smoke Exposure: Current Smokeless Tobacco: Never Alcohol Use Standard Drinks/Week Comments Never 0 (1 standard drink = 0.6 oz pur e alcohol) Depression Answer Date Recorded Patient Health Questionnaire-9 Score 6 11/25/2022 Housing Stability Answer Date Recorded What is [...] Date Recorded Patient Health Questionnaire-2 Score 2 11/25/2022 Comments Unknown Sex and Gender Information Value Date Recorded Sex Assigned at Female 03/08/2022 10:23 AM EDT Legal Sex Female 10:23 AM EDT Gender Identity Female 03/08/2022 10:23 AM EDT Sexual Orientation Straight 03/08/2022 10 :23 AM EDT documented as of this encounter Miscellaneous Notes * Telephone Encounter - Meghann Diane - 03/08/2023 1:29 PM EDT Patient called in to cancel and rs her appt with Dr. Lugo because she had an emergency with her dad. She is looking for an appt after 10am. documented in this encounter Plan of Treatment Not on file documented as of this encounter Goals Goal Patient Goal Type Associated Problems Recent Progress Patient-Stated? Author Quit using tobacco (cigarettes, smokeless, etc) Tobacco Use No Ahmet Lombardo, Ladonna documented as of this encounter Visit Diagnoses Not on filedocumented in this encounter Additional Health Concerns Assessment Noted Time PHQ-9 Depression Total Score: 6 11/26/19 10:34 AM EDT documented as of this encounter Care Teams Electric Motors Salesperson Relationship Specialty Start Date End Date Lurdes Lo MD [address] [place] [address] PCP - General Family Medicine 08/09/22 Ahmet Lombardo PharmD [address] [place] [address] Pharmacist Internal Medicine 09/03/22 Deepti Boo Senior Tableau DeveloperLead Section Supervisor 06/13/23 [facility] 03/05/24 documented as of this encounter
--- OUTSIDE RECORDS SUMMARY | 2024-05-30 08:44 | XMS_ITS | Encounter Summary ---
Author Organization [employer] Address [address] [facility] [address] [place] [address] Care Team Providers Care Garage Supervisor Name Role Phone Lurdes Lo MD Primary Care Provider [phone] Ahmet Lombardo PharmD Unavailable [phone] Reason for Visit * Reason Comments Med Refill Encounter Details Date Type Department Care Team (Late st Contact Info) Description 12/01/2023 Refill [facility] [address] [place], [place] [phone] Lurdes Lo MD [address] [place], [place] [phone] Paresthesia of lower extremity Social History Tobacco Use Types Packs/Day Years [...] as of this encounter Visit Diagnoses Diagnosis Paresthesia of lower extremity Disturbance of skin sensation documented in this encounter Additional Health Concerns Assessment Noted Time PHQ-9 Depression Total Score: 6 11/26/19 10:34 AM EDT documented as of this encounter Care Teams Garage Supervisor Relationship Specialty Start Date End Date Lurdes Lo MD [address] [place] [address] PCP - General Family Medicine 08/09/22 Ahmet Lombardo, PharmD [address] [place] [address] Pharmacist Internal Medicine 09/03/22 Deepti Boo Pyridine Recovery OperatorSodium Chlorite Operator 06/13/23 [facility] 03/05/24 documented as of this encounter
--- OUTSIDE RECORDS SUMMARY | 2024-05-30 08:44 | XMS_ITS | Encounter Summary ---
Author Organization [employer] Address [address] [facility] [address] [place] [address] Care Team Providers Care Offline Editor Name Role Phone Lurdes Lo MD Primary Care Provider [phone] Ahmet Lombardo PharmD Unavailable [phone] Encounter Details Date Type Department Care Team (Late st Contact Info) Description 05/29/2024 1:15 PM EST Office Visit [facility] [address] [place], [place] [phone] Lurdes Lo MD [address] [place], [place] [phone] Osteoporosis, unspecified osteoporosis type, unspecified pathological fracture presence (Primary Dx); Fibromyalgia; Tobacco dependence; Depressive disorder; Difficulty maintaining weight; Screening for lipid disorders; Screening for diabetes mellitus; Vitamin D deficiency Social History Tobacco Use Types Packs/Day Years [...] AM EDT documented as of this encounter Last Filed Vital Signs Vital Sign Reading Time Taken Comments Blood Pressure 119/48 05/29/2024 1:23 PM EST Pulse 88 05/29/2024 1:23 PM EST Temperature 36.2 ??C (97.1 ??F) 05/29/2024 1:23 PM ES T Respiratory Rate 20 05/29/2024 1:23 PM EST Oxygen Saturation - - Inhaled Oxygen Concentration - - Weight 50.3 kg (110 lb 12.8 oz) 025 1:23 PM EST Height - - Body Mass Index 19.63 09/07/2023 10:04 AM EDT documented in this encounter Miscellaneous Notes * Assessment & Plan Note - Lurdes Lo MD - 05/29/2024 6:15 AM ESTAssociated Problem(s): Depressive disorder - pt reports anxiety and depression - anxious due to abdominal pain / fear of having another abdominal surgery ad Fibromyalgia - poor PO intake - resume nutritional supplement - Start Duloxetine 20 mg once daily -Continue Amitriptyline - Continue following up with therapy * Assessment & Plan Note - Lurdes Lo MD - 05/29/2024 6:15 AM ESTAssociated Problem(s): Tobacco dependence - 30 pack year - last chest CT in Apr 2024, Lung-RADS 2, stable RUL nodules. Follow up in 1 year - work on smoking cessation * Assessment & Plan Note - Lurdes Lo MD - 05/29/2024 6:15 AM ESTAssociated Problem(s): Fibromyalgia - continue amitriptyline - continue judicious byron of gabapentin, increased dose to 400 mg, 3 times daily. - continue lidocaine patch - continue diclofenac topical - continue duloexetine (Cymbalta) * Assessment & Plan Note - Lurdes Lo MD - 05/29/2024 6:14 AM ESTAssociated Problem(s): Osteoporosis - followed by [facility] Endocrinology, Dr. Martini, encouraged to schedule appt. - previously on bisphosphonate, but pt discontinued due to side effects and was seen by Dr. Martini todiscuss about alternative medications - work on smoking cessation - continue weight-bearing exercise - continue nutritional supplement documented in this encounter Plan of Treatment Scheduled Orders Name Type Priority Associated Diagnoses Orde r Schedule CAROLIN Screen,IFA, with Reflex to Titer and Pattern Lab Routine Fibromyalgia Expected: 05/29/2024 (Approximate), Expires: 05/29/2025 Rheumatoid Factor Lab Routine Fibromyalgia Expected: 05/29/2024 (Approximate), Expires: 05/29/2025 Cyclic Citrullinated Peptide (CCP) Antibody (IgG) Lab Routine Fibromyalgia Expected: 05/29/2024 (Approximate), Expires: 05/29/2025 C-reactive Protein Lab Routine Fibromyalgia Expected: 05/29/2024 (Approximate), Expires: 05/29/2025 Sed Rate by Modified Westergren Lab Routine Fibromyalgia Expected: 05/29/2024 (Approximate), Expires: 05/29/2025 Comprehensive Metabolic Panel Lab Routine Fibromyalgia Expected: 05/29/2024 (Approximate), Expires: 05/29/2025 Lipid Panel with Reflex to Direct LDL Lab Routine Screening for lipid disorders Expected: 05/29/2024 (Approximate), Expires: 05/29/2025 TSH with Reflex to Free T4 Lab Routine Difficulty maintaining weight Expected: 05/29/2024 (Approximate), Expires: 05/29/2025 Hemoglobin A1c Lab Routine Screening for diabetes mellitus Expected: 05/29/2024 (Approximate), Expires: 05/29/2025 CBC auto differential Lab Routine Difficulty maintaining weight Expected: 05/29/2024 (Approximate), Expires: 05/29/2025 Vitamin D, 25-Hydroxy, Total, Immunoassay Lab Routine Vitamin D deficiency Expected: 05/29/2024 (Approximate), Expires: 05/29/2025 documented as of this encounter Goals Goal Patient Goal Type Associated Problems Recent Progress Patient-Stated? Author Quit using tobacco (cigarettes, smokeless, etc) Tobacco Use No Ahmet Lombardo, PharmD documented as of this encounter Visit Diagnoses Diagnosis Osteoporosis, unspecified osteoporosis type, unspecified pathological fracture presence- Primary Fibromyalgia Unspecified myalgia and myositis Tobacco dependence Tobacco use disorder Depressive disorder Depressive disorder, not elsewhere classified Difficulty maintaining weight Screening for lipid disorders Screening for diabetes mellitus Vitamin D deficiency documented in this encounter Additional Health Concerns Assessment Noted Time PHQ-9 Depression Total Score: 8 02/13/20 24 11:13 AM EDT documented as of this encounter Care Teams Offline Editor Relationship Specialty Start Date End Date Lurdes Lo MD [address] [place] [address] PCP - General Family Medicine 08/09/22 Ahmet Lombardo, PharmD [address] [place] [address] Pharmacist Internal Medicine 09/03/22 Deepti Boo Relief OperatorLime Kiln Tender 06/13/23 Home Care [facility] 03/05/24 documented as of this encounter
--- OUTSIDE RECORDS SUMMARY | 2024-05-30 08:44 | XMS_ITS | Encounter Summary ---
Author Organization [employer] Address [address] [facility] [address] [place] [address] Care Team Providers Care Log Cutter Name Role Phone Lurdes Lo MD Primary Care Provider [phone] Ahmet Lombardo PharmD Unavailable [phone] Reason for Visit * Reason Comments Med Refill Encounter Details Date Type Department Care Team ([facility] st Contact Info) Description 02/21/2023 Refill [facility] [address] [place], [place] [id number] [facility] [address] [place] [address] Social History Tobacco Use Types Packs/Day Years [...] documented as of this encounter Care Teams Log Cutter Relationship Specialty Start Date End Date Lurdes Lo MD [address] [place] [address] PCP - General Family Medicine 08/09/22 Ahmet Lombardo, PharmD [address] [place] [address] Pharmacist Internal Medicine 09/03/22 Deepti [employer] 06/13/23 Home [facility] 03/05/24 documented as of this encounter
--- OUTSIDE RECORDS SUMMARY | 2024-05-30 08:44 | XMS_ITS | Encounter Summary ---
Author Organization [employer] Address [address] [place] [address] [address] [place] [address] Care Team Providers Care Electronic Controls Repairer Supervisor Name Role Phone Maria Elena Davis RODDY Primary Care Provider [phone] Lurdes Lo MD Primary Care Provider [phone] Ahmet Lombardo PharmD Unavailable [phone] Encounter Details Date Type Department Care Team (Latest Contact Info) Description 02/09/2022 Abstract [facility] CONVERSIONS Dental, Provider, DDS Social History Tobacco Use Types Packs/Day Years Used Date Smoking Tobacco: Never Assessed Comments Unknown Sex and Gender Information Value Date Recorded Sex Assigned at Female 03/08/2022 10:23 AM EDT Legal Sex Female 10:23 AM EDT Gender Identity Female 03/08/2022 10:23 AM EDT Sexual Orientation Straight 03/08/2022 10 :23 AM EDT documented as of this encounter Plan of Treatment Not on file documented as of this encounter Visit Diagnoses Not on filedocumented in this encounter Care Teams Electronic Controls Repairer Supervisor Relationship Specialty Start Date End Date Maria Elena Davis [facility] [address] [place] [id number] PCP - General Family Medicine 12/31/21 08/08/22 Lurdes Lo MD [address] [place] [id number] PCP - General Family Medicine 08/09/22 Ahmet Lombardo, PharmD [address] [place] [id number] Pharmacist Internal Medicine 09/03/22 Deepti Boo [employer] Rep[employer]r 06/13/23 Home Care [facility] 03/05/24 documented as of this encounter
--- OUTSIDE RECORDS SUMMARY | 2024-05-30 08:44 | XMS_ITS | Clinical Summary ---
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 60 tablet 5 Active cholecalciferol (Vitamin D-3) 50 MCG (2000 UT) capsule Take 1 capsule by mouth in the morning. Active docusate sodium (Colace) 100 MG capsule take 2 capsule by oral route at bedtime every day as needed Active triamcinolone (Kenalog) 0.5 % ointment Apply topically every 12 (twelve) hours. Active cetirizine (ZyrTEC) 10 MG tablet Take 1 tablet (10 mg) by mouth in the morning. 30 tablet Active Additional Information Patient not taking.Reported on 11/24/2022 Ventolin HFA 108 (90 Base) MCG/ACT inhaler INHALE 2 PUFFS BY MOUTH EVERY 4 TO 6 HOURS NEEDED FOR WHEEZING OR SHORTNESS OF BREATH Active Breo Ellipta 200-25 MCG/ACT aerosol powder INHALE 1 PUFF BY MOUTH EVERY DAY. RINSE MOUTH AFTER USING. 023 Active Incruse Ellipta 62.5 MCG/ACT aerosol powder INHALE 1 PUFF EVERY DAY AT THE SAME TIME Active montelukast (Singulair) 10 MG tablet TAKE 1 TABLET BY MOUTH EVERY MORNING 90 tablet 3 Active DULoxetine (Cymbalta) [address] capsule Take 1 capsule (20 mg) by mouth Once per day. Do not crush or chew. 30 capsule 11 024 2024 Active amitriptyline (Elavil) 25 MG tablet TAKE 1 TABLET BY MOUTH DAILY AT BEDTIME 90 tablet 3 Active dicyclomine (Bentyl) 20 MG tablet TAKE 1 TABLET BY MOUTH UP TO FOUR TIMES DAILY NEEDED FOR ABDOMINAL PAIN 120 tablet 3 Active chlorhexidine (Peridex) 0.12 % solution Swish 15 mL morning and night for 1 minute. Spit, do not swallow. Do not eat or drink for 30 minutes following use. 473 mL Active gabapentin (Neurontin) 400 MG capsule Take 1 capsule (400 mg) by mouth 3 times daily. 90 capsule 11 024 2024 Active albuterol (2.5 MG/3ML) 0.083% nebulizer solution INHALE 1 AMPULE USING A NEBULIZER EVERY 4 HOURS NEEDED FOR WHEEZING OR SHORTNESS OF BREATH. DO NOT EXCEED FOUR TIMES DAILY 90 mL 3 Active ondansetron ODT (Zofran-ODT) 4 MG disintegrating tabletIndications :Nausea DISSOLVE 1 TABLET ON TONGUE AND SWALLOW EVERY 6 HOURS NEEDED FOR NAUSEA 30 tablet 11 Active ibuprofen 600 MG tablet TAKE 1 TABLET BY MOUTH EVERY 6 HOURS NEEDED FOR PAIN DO NOT TAKE EVERY DAY FOR MORE THAN 2 WEEKS 30 tablet 3 Active lidocaine (Lidoderm) 5 % patch APPLY 3 PATCHES EVERY DAY, MAY LEAVE ON FOR UP TO 12 HOURS 90 patch 11 Active Diclofenac Sodium 1 % gel Apply to affected area once or twice daily as needed for pain 200 g 3 Active fluticasone (Flonase) 50 MCG/ACT nasal spray Administer 1 spray into each nostril Once per day. 48 g 3 Active omeprazole (PriLOSEC) [address] capsuleIndication s:Dyspepsia TAKE 1 CAPSULE BY MOUTH BEFORE BREAKFAST 90 capsule 1 024 Active omeprazole (PriLOSEC) [address] capsuleIndication s:Dyspepsia TAKE 1 CAPSULE BY MOUTH BEFORE BREAKFAST 180 capsule 1 023 2023 Discontinued Active Problems Problem Noted Date Diagnosed Date Gabapentin overdose 02/17/2024 Assessment & Plan (02/17/2024 3:13 PM EDT): Seen In ED on 11/21/2023. Reportedly took an extra of her Gabapentin. Symptoms resolved. History of tooth extraction 02/09/2024 Allergies 01/30/2024 Constipation 01/30/2024 History of surgical procedure 01/30/2024 Difficulty maintaining weight 01/30/2024 Assessment & Plan (02/19/2024 6:52 PM EDT): - patient has a difficulty meeting nutritional needs by PO intake due to fear of recurrent SBO, nausea, and abdominal pain - continue nutritional supplement Vitamin D deficiency 01/30/2024 Alveolitis of maxilla 01/30/2024 Retained dental root 01/24/2024 Chronic pain of both shoulders 09/07/2023 Assessment & Plan (02/19/2024 6:49 PM EDT): - seen by [facility] in October 2023, Dx tendinitis - patient elected PT Assessment & Plan (09/07/2023 9:54 PM EDT): - Will obtain X-rays for shoulders for further evaluation - Continue Acetaminophen prn for pain Kidney stone 07/06/2023 Dental abscess 12/08/2022 Dental caries 12/08/2022 History of small bowel obstruction 11/26/2022 Assessment & Plan (02/17/2024 3:11 PM EDT): - EGD and colonoscopy on 07/14/20. H. Pylori reactive and hyperplastic colonic polyp. - 03/25/21 Laparotomy, extensive lysis of adhesions, small-bowel resection x2 segments by Dr. Benites - Postop diagnosis: Small bowel obstruction from extensive postop adhesions, with a segment of small bowel with stricturing, and a 2nd segment with patchy ischemic changes - Recurrent. Hospitalized in Mar 2023 and August 2023 Assessment & Plan (09/11/2023 5:44 AM EDT): - EGD and colonoscopy on 07/14/20. H. Pylori reactive and hyperplastic colonic polyp. - 03/25/21 Laparotomy, extensive lysis of adhesions, small-bowel resection x2 segments by Dr. Benites - Postop diagnosis: Small bowel obstruction from extensive postop adhesions, with a segment of small bowel with stricturing, and a 2nd segment with patchy ischemic changes - Recurrent. Hospitalized in Mar 2023 and August 2023 Assessment & Plan (04/22/2023 5:28 PM EST): - 03/25/21 Laparotomy, extensive lysis of adhesions, small-bowel resection x2 segments by Dr. Benites - Postop diagnosis: Small bowel obstruction from extensive postop adhesions, with a segment of small bowel with stricturing, and a 2nd segment with patchy ischemic changes - continue nutritional supplement Assessment & Plan (11/26/2022 7:33 AM EDT): - in Mar 2021 - continue nutritional supplement History of resection of small bowel 11/26/2022 Assessment & Plan (11/26/2022 7:36 AM EDT): - Mar 2021 - continue nutritional supplement History of Helicobacter pylori infection 023 Trigger ring finger of left hand 11/26/2022 Assessment & Plan (02/19/2024 6:50 PM EDT): - seen by [facility] in Dec 2022 - She gave an informed consent to surgical release; she decided to continue to treat conservatively - continue conservative management for now Assessment & Plan (04/22/2023 5:31 PM EST): - seen by [facility] in Dec 2022 - She gave an informed consent to surgical release; she has not scheduled a surgery date yet. - continue conservative management for now; encouraged to schedule a follow up appt with ortho Assessment & Plan (11/26/2022 7:38 AM EDT): - refer to orthopedist Asthma-COPD overlap syndrome 11/25/2022 Assessment & Plan (02/19/2024 6:45 PM EDT): - followed by Dr. Olivera, [facility], last seen in Apr 2023 - most recent exacerbation in October 2022, received azithromycin and prednisone - pt was prescribed fluticasone / umeclidinium / vilanterol, but was not covered by her insurance - continue flluticasone furoate / vilanterol - continue umeclidinium - continue albuterol HFA and neb prn - continue working on smoking cessation Assessment & Plan (09/07/2023 9:52 PM EDT): - followed by Dr. lOivera, [facility], last seen in Dec 2022 - most recent exacerbation in October 2022, received azithromycin and prednisone - pt was prescribed fluticasone / umeclidinium / vilanterol, but was not covered by her insurance - continue flluticasone furoate / vilanterol - continue umeclidinium - continue albuterol HFA and neb prn - continue working on smoking cessation Assessment & Plan (04/22/2023 5:37 PM EST): - followed by Dr. Olivera, [facility], last seen in Dec 2022 - most recent exacerbation in October 2022, received azithromycin and prednisone - pt was prescribed fluticasone / umeclidinium / vilanterol, but was not covered by her insurance - continue flluticasone furoate / vilanterol - continue umeclidinium - continue albuterol HFA and neb prn - continue working on smoking cessation Assessment & Plan (11/26/2022 7:32 AM EDT): - followed by Dr. Olivera, [facility], last seen in October 2022 - most recent exacerbation in October 2022, received azithromycin and prednisone - continue Trelegy - continue albuterol prn - continue working on smoking cessation - advised to reschedule appt for CT and PFT Allergic rhinitis 11/25/2022 Assessment & Plan (09/07/2023 9:55 PM EDT): - continue cetirizine - continue montelukast - continue fluticasone nasal - work on smoking cessation Assessment & Plan (04/22/2023 5:37 PM EST): - continue cetirizine - continue montelukast - continue fluticasone nasal - work on smoking cessation Gas pain 04/30/2022 Nausea 08/18/2018 Assessment & Plan (04/22/2023 5:27 PM EST): - evaluated by GI - EGD and colonoscopy on 07/24/20 focal esophagitis and hyperplastic polyp in sigmoid colon - s/p small bowel resection and lysis of adhesions on 03/25/21 for small bowel obstruction from extensive postop adhesions, with a segment of small bowel with stricturing, and a 2nd segment with patchy ischemic changes - continue ondansetron prn Assessment & Plan (11/26/2022 7:32 AM EDT): - evaluated by GI - continue ondansetron prn Osteoporosis 08/18/2018 Assessment & Plan (05/29/2024 6:14 AM EST): - followed by [facility], Dr. Martini, encouraged to schedule appt. - previously on bisphosphonate, but pt discontinued due to side effects and was seen by Dr. Martini to discuss about alternative medications - work on smoking cessation - continue weight-bearing exercise - continue nutritional supplement Assessment & Plan (02/19/2024 6:47 PM EDT): - followed by [facility], encouraged to schedule appt. - previously on bisphosphonate, but pt discontinued due to side effects and was seen by Dr. Martini to discuss about alternative medications - work on smoking cessation - continue weight-bearing exercise - continue nutritional supplement Assessment & Plan (09/07/2023 9:54 PM EDT): - followed by [facility], Dr. Martini - previously on bisphosphonate, but pt discontinued due to side effects - work on smoking cessation - continue weight-bearing exercise - continue nutritional supplement Assessment & Plan (04/22/2023 5:39 PM EST): - followed by [facility], Dr. Martini - previously on bisphosphonate, but pt discontinued due to side effects - work on smoking cessation - continue weight-bearing exercise - continue nutritional supplement Assessment & Plan (11/26/2022 7:34 AM EDT): - followed by [facility], Dr. Martini - continue bisphosphonate - work on smoking cessation - continue weight-bearing exercise - continue nutritional supplement Insomnia 04/06/2018 Postablative ovarian failure 04/06/2018 H/O: hysterectomy 01/28/2017 Macrocytosis without anemia 01/28/2017 Pure hypercholesterolemia 01/28/2017 Depressive disorder 07/31/2013 Assessment & Plan (05/29/2024 6:15 AM EST): - pt reports anxiety and depression - anxious due to abdominal pain / fear of having another abdominal surgery ad Fibromyalgia - poor PO intake - resume nutritional supplement - Start Duloxetine 20 mg once daily -Continue Amitriptyline - Continue following up with therapy Assessment & Plan (09/07/2023 9:57 PM EDT): - pt reports anxiety and depression - anxious due to abdominal pain / fear of having another abdominal surgery ad Fibromyalgia - poor PO intake - resume nutritional supplement - Start Duloxetine 20 mg once daily -Continue Amitriptyline - Continue following up with therapy Assessment & Plan (11/26/2022 7:37 AM EDT): - pt reports anxiety and depression - anxious due to abdominal pain / fear of having another abdominal surgery - poor PO intake - resume nutritional supplement Fibromyalgia 07/31/2013 Assessment & Plan (05/29/2024 6:15 AM EST): - continue amitriptyline - continue judicious byron of gabapentin, increased dose to 400 mg, 3 times daily. - continue lidocaine patch - continue diclofenac topical - continue duloexetine (Cymbalta) Assessment & Plan (02/19/2024 6:48 PM EDT): - continue amitriptyline - continue judicious byron of gabapentin, increased dose to 400 mg, 3 times daily. - continue lidocaine patch - continue diclofenac topical - continue duloexetine (Cymbalta) Assessment & Plan (09/11/2023 5:47 AM EDT): - continue amitriptyline - continue judicious byron of gabapentin - continue lidocaine patch - trial of diclofenac topical - trial of duloexetine (Cymbalta) Assessment & Plan (04/22/2023 5:38 PM EST): - continue amitriptyline - continue gabapentin - continue lidocaine patch - trial of diclofenac topical Assessment & Plan (11/26/2022 7:35 AM EDT): - check inflammatory marker, if not done in the past - continue amitriptyline - continue gabapentin Gastroesophageal reflux disease 07/31/2013 Paresthesia of lower extremity 07/31/2013 Tobacco dependence 07/31/2013 Assessment & Plan (05/29/2024 6:15 AM EST): - 30 pack year - last chest CT in Apr 2024, Lung-RADS 2, stable RUL nodules. Follow up in 1 year - work on smoking cessation Assessment & Plan (02/19/2024 6:53 PM EDT): - 30 pack year - last chest CT in Apr 2024, Lung-RADS 2, stable RUL nodules. Follow up in 1 year - work on smoking cessation Assessment & Plan (09/07/2023 9:57 PM EDT): - 30 pack year - Dr. Olivera has ordered LDCT and is now scheduled for 04/29/23 - work on smoking cessation Assessment & Plan (04/22/2023 5:33 PM EST): - 30 pack year - Dr. Olivera has ordered LDCT and is now scheduled for 04/29/23 - work on smoking cessation Assessment & Plan (11/26/2022 7:36 AM EDT): - 30 pack year - Dr. Olivera has ordered LDCT; advised to reschedule appt - work on smoking cessation Assessment & Plan (07/29/2022 12:11 PM EDT): Smoker for 27yrs -Smokes 15-20 cigarettes a day -work on smoking cessation -Likely will need a CT Scan d/t smoking hx -Will possibly conside Pulmonology specialist referral Resolved Problems Problem Noted Date Diagnosed Date Resolved Date Pharyngitis 01/30/2024 02/12/2024 Vomiting 01/30/2024 02/19/2024 SBO (small bowel obstruction) 09/07/2023 02/19/2024 Assessment & Plan (09/11/2023 5:45 AM EDT): - hospitalized in August 2023 - improved with bowel rest, no NGT or surgery were required - still recovering from recent SBO - continue regular BM and nutritional supplementation Abnormal liver function 01/28/2017 10/0 10/2023 Assessment & Plan (09/11/2023 5:49 AM EDT): - elevated AP - most recent abd CT did not reveal liver pathology. Encounters Date Type Department Care Team Description 05/29/2024 1:15 PM EST Office Visit [facility] [address] [place] [id number] Lurdes Lo MD Osteoporosis, unspecified osteoporosis type, unspecified pathological fracture presence (Primary Dx); Fibromyalgia; Tobacco dependence; Depressive disorder; Difficulty maintaining weight; Screening for lipid disorders; Screening for diabetes mellitus; Vitamin D deficiency 05/29/2024 Travel 05/25/2024 Telephone [facility] [address] [place], [place] [phone] Sandee Doll MA chart prep 05/06/2024 Refill [facility] [address] [place] [address] Lurdes Lo MD Dyspepsia 04/12/2024 Refill [facility] [address] [place] [address] Lurdes Lo MD 03/21/2024 3:00 PM EST Office Visit [facility] [address] [place] [address] Altamirano-Lugo, Jayashree, DDS Teeth missing (Primary Dx) 03/13/2024 2:30 PM EST Office Visit [facility] [address] [place] [address] Altamirano-Lugo, Jayashree, DDS Teeth missing (Primary Dx) 03/08/2024 Telephone [facility] [address] [place] [address] Lurdes Lo MD Care Coordination ([facility]) 03/06/2024 3:00 PM EDT Office Visit [facility] [address] [place] [address] Altamirano-Lugo, Jayashree, DDS Teeth missing (Primary Dx) from Last 3 Months Immunizations Name Administration Dates Next Due HepB-CpG 09/07/2023 Influenza injectable quadriv alent IIV4 with preservative 01/24/2019,04/06/2018 Influenza injectable quadrivalent preservative f ree 03/14/2023 Influenza, seasonal, injectable, preservative fr ee 02/13/2024,04/28/2018 Moderna Covid-19 Vaccine 12+ 10/02/2020,09/05/19 21 Pneumococcal Conjugate PCV 20 04/05/2023 Tdap 04/05/2023 Zoster, Recombinant 09/07/2023 Family History Medical History Relation Name Comments Depression Mother Brianne Heart attack Mother Brianne Stroke Mother Brianne Relation Name Status Comments Mother Brianne Social History Tobacco Use Types Packs/Day Years Used Date Smoking Tobacco: Every Day Cigarettes 1 30 Passive Smoke Exposure: Current Smokeless Tobacco: Never Tobacco Cessation:Ready to Q uit: Not Asked; Counseling Given: Not Answered Alcohol Use Standard Drinks/Week Comments Never 0 [...] Orientation Straight 03/08/2022 10 :23 AM EDT Last Filed Vital Signs Vital Sign Reading Time Taken Comments Blood Pressure 119/48 05/29/2024 1:23 PM EST Pulse 88 05/29/2024 1:23 PM EST Temperature 36.2 ??C (97.1 ??F) 05/29/2024 1:23 PM ES T Respiratory Rate 20 05/29/2024 1:23 PM EST Oxygen Saturation 96% 07/20/2023 11: 00 AM EDT Inhaled Oxygen Concentration - - Weight 50.3 kg (110 lb 12.8 oz) 05/29/2024 1:23 PM EST Height 160 cm (5' 3 ) 09/07/2023 10:04 AM EDT Body Mass Index 19.63 09/07/2023 10:04 AM EDT Plan of Treatment Health Maintenance Due Date Last Done Comments CT Colonography 1967 FIT DNA/Cologuard 1967 FIT 1967 FOBT 1965 HIV Screening 1965 Sigmoidoscopy 1965 Hepatitis C Screening 1985 Hepatitis A Vaccines (1 of 2 - Risk 2-dose series) 1986 Pap Smear 01/30/1988 Cervical Cancer Screening 1997 HPV/Cotest 1997 Dental X-Ray: Full Mouth 01/05/2019 01/05/2016 Dental X-Ray: Bitewings 09/01/2022 09/01/19, 06/19/2019, 05/03/2018, Additional history exists Dental Prophylaxis 05/28/2023 11/24/2022, 1 , 05/13/2016 Dental Oral Exam 08/24/2023 02/21/2023, , 02/09/2022, Additional history exists Hepatitis B Vaccines (2 of 2 - CpG 2-dose series) 10/05/2023 09/07/2023 Zoster Vaccines (2 of 2) 11/02/2023 09/07/2023 COVID-19 Vaccine ( - season) 2024 10/02/2020, 09/04/2020 Lung Cancer Screening 04/29/2024 04/29/2023 SDOH Screening 08/28/2024 08/29/2023 Alcohol/Substance Use Screening 02/12/2025 02/13/2024 Depression Screening 02/12/2025 02/13/2024, 02/13/20 24 Tobacco Screening 03/21/2025 03/21/2024 Colonoscopy 07/15/2025 07/15/2020 Colorectal Cancer Screening 07/15/2025 Mammogram 09/26/2025 09/27/2023 Lipid Panel 11/26/2027 11/25/2022 DTaP/Tdap/Td Vaccines (2 - Td or Tdap) 04/05/2033 04/05/2023 RSV Patients and Patients Aged 60 years or older (1 - 1-dose 75+ series) 2042 Pneumococcal Vaccine: Pediatrics (0 to 5 Years) and At-Risk Patients (6 to 64 Years) Completed 04/05/2023 Influenza Vaccine Completed 02/13/2024, , 01/24/2019, Additional history exists HIB Vaccines Aged Out No longer eligi ble based on patient's age to complete this topic HPV Vaccines Aged Out No longer eligi ble based on patient's age to complete this topic IPV Vaccines Aged Out No longer eligi ble based on patient's age to complete this topic Meningococcal Vaccine Aged Out No latricia laura eligible based on patient's age to complete this topic RSV under 20 months Aged Out No longe r eligible based on patient's age to complete this topic Rotavirus Vaccines Aged Out No longer eligible based on patient's age to complete this topic Goals Goal Patient Goal Type Associated Problems Recent Progress Patient-Stated? Author Quit using tobacco (cigarettes, smokeless, etc) Tobacco Use No Ahmet Lombardo, Ladonna Procedures Procedure Name Priority Date/Time Associated Diagnosis Comments ADJUNCTIVE GENERAL SERVICES - PROFESSIONAL VISITS - CASE PRESENTATION, SUBSEQUENT TO DETAILED AND EXTENSIVE TREATMENT PLANNING Routine 03/21/2024 3:00 PM EST Teeth missing 19,29,30,31,21,20,18 MANDIBULAR PARTIAL DENTURE - RESIN BASE (INCLUDING, RETENTIVE/CLASPING MATERIALS, RESTS, AND TEETH) Routine 03/21/2024 3:00 PM EST Teeth missing 3,4,2,5,6,11,12,14,15, 13 MAXILLARY PARTIAL DENTURE - RESIN BASE (INCLUDING, RETENTIVE/CLASPING MATERIALS, RESTS, AND TEETH) Routine 03/21/2024 3:00 PM EST Teeth missing WAX TRY IN Routine 03/13/2024 2:30 PM EST Teeth missing BITE REGISTRATION Routine 03/06/2024 3:0 0 PM EDT Teeth missing BI MAMMOGRAM SCREENING TOMOSYNTHESIS BILATERAL Routine 09/27/2023 12:26 PM EDT Breast cancer screening by mammogram LDCT LUNG SCREENING Routine 04/29/2023 1 0:15 AM EST PERIODIC ORAL EVALUATION - ESTABLISHED PATIENT Routine 02/21/2023 3:30 PM EDT Encounter for dental examination Dental caries LIPID PANEL WITH REFLEX TO DIRECT LDL Routine 11/25/2022 11:38 AM EDT Fatigue, unspecified type PROPHYLAXIS - ADULT Routine 11/24/2022 3 :00 PM EDT BITEWING - SINGLE RADIOGRAPHIC IMAGE Routine 08/31/2021 12:00 AM EDT HM COLONOSCOPY Routine 07/15/2020 DIAGNOSTIC - DIAGNOSTIC IMAGING - INTRAORAL - COMPREHENSIVE SERIES OF RADIOGRAPHIC IMAGES Routine 01/05/2016 12:00 AM EDT from Last 3 Months or Most Recently Relevant to Health Maintenance Results * BI Mammogram Screening Tomosynthesis Bilateral (09/27/2023 12:26 PM EDT) Anatomical Region Laterality Modality Breast Bilateral Mammography 09/27/2023 12:2 6 PM EDT Narrative 10/28/2023 7:07 AM EDT ? [facility] [place] ? [address] ?[place] [address] ? Mammography Report ? Signed ? Patient: Leda Gudino ?MR# ?? : [id number] ? : 1965 ?Acct:[id number] ? Age/Sex: 58 / F ?ADM Date: 09/27/23 ? Loc: HO.MAMMO ? Attending Dr: Lurdes Lo MD ? Ordering Physician: Lurdes Lo MD ?Results: 1Negative ? Date of Service: 09/27/23 ?Follow Up: 1 Year From Orig ?? inal Mammogram ? Procedure(s): MM tomosynthesis screening BI ?? Accession Number(s): [id number] ? cc: Lurdes Lo MD ? EXAMINATION: ?? MM SCREENING DIGITAL BREAST TOMOSYNTHESIS, BILATERAL ? CLINICAL INFORMATION: ? Screening. Asymptomatic. ? COMPARISON: ?? Mammography: This study is compared with prior exams dating back to ?? 2017. ? TECHNIQUE: ?? Digital breast tomosynthesis is performed in both the craniocaudal and ?? mediolateral oblique views along with computer-aided detection (CAD). ?? Synthesized 2D images are generated from the tomosynthesis. ? FINDINGS: ?? The breasts are heterogeneously dense, which may obscure small masses ?? (ACR BI-RADS breast composition Category c). ? There are no significant masses, abnormal calcifications, or other ?? abnormalities. ? MM/MM tomosynthesis screening BI ?? IMPRESSION: ?? No mammographic evidence of malignancy. ? ASSESSMENT: ? BI-RADS BI-RADS 1 - Negative ? RECOMMENDATION: ?? Routine annual mammography screening. ? 1 year F/U ? This examination should not preclude the clinical evaluation of a ?? suspicious palpable abnormality. ? This patient's information was entered into a reminder system with a ?? target due date for their next mammogram. ? Dictated By: ?Oma Cerrato MD ? Signed By: ?<Electronically signed by Oma Cerrato MD in [place]> ? 10/28/23 0704 ? DD/ 1226 ? TD/TT: ? Informatics Analyst: ? Procedure Note David, Image - 10/28/2023 [facility] [address] [place] [address] [place], D[place] [id number] Mammography Report Signed Patient: Leda Gudino# : [id number] : 1965Acct:[id number] Age/Sex: 58 / FADM Date: 09/27/23 Loc: [facility] Attending Dr: Lurdes Lo MD Ordering Physician: Lurdes Loesults: 1Negative Date of Service: 09/27/23Follow Up: 1 Year From Orig inal Mammogram Procedure(s): MM tomosynthesis screening BI Accession Number(s): [id number] cc: Lurdes Lo MD EXAMINATION: MM SCREENING DIGITAL BREAST TOMOSYNTHESIS, BILATERAL CLINICAL INFORMATION: Screening. Asymptomatic. COMPARISON: Mammography: This study is compared with prior exams dating back to 2017. TECHNIQUE: Digital breast tomosynthesis is performed in both the craniocaudal and mediolateral oblique views along with computer-aided detection (CAD). Synthesized 2D images are generated from the tomosynthesis. FINDINGS: The breasts are heterogeneously dense, which may obscure small masses (ACR BI-RADS breast composition Category c). There are no significant masses, abnormal calcifications, or other abnormalities. MM/MM tomosynthesis screening BI IMPRESSION: No mammographic evidence of malignancy. ASSESSMENT: BI-RADS BI-RADS 1 - Negative RECOMMENDATION: Routine annual mammography screening. 1 year F/U This examination should not preclude the clinical evaluation of a suspicious palpable abnormality. This patient's information was entered into a reminder system with a target due date for their next mammogram. Dictated By: Oma Cerrato MD Signed By: <Electronically signed by Oma Cerrato MD in OV> 10/28/23 0704 DD/ 1226 TD/TT: Informatics Analyst: Lurdes Lo MD IMG BI PROCEDURES Final Result * CT Lung Screening Low dose (04/29/2023 10:15 AM EST) Anatomical Region Laterality Modality Lung Computed Tomogra phy 04/29/2023 10:1 5 AM EST Narrative 05/13/2023 2:52 PM EST ? [facility] ?[address] ?[place] [address] ? CT Scan Report ? Signed ? Patient: Jones Ever,Leda ?MR# ?? : [id number] ? : 1965 ?Acct:[id number] ? Age/Sex: 58 / F ?ADM Date: 12/22/23 ? Loc: HO.CT ? Attending Dr: Maxine Matos PA-C ? Ordering Physician: Maxine Matos PA-C ?? Date of Service: 04/29/23 ?? Procedure(s): CT lung screening ?? Accession Number(s): [id number] ? cc: Maxine Matos PA-C; Lurdes Lo MD ? EXAMINATION: ?? CT LOW-DOSE SCREENING CHEST WITHOUT CONTRAST ? CLINICAL INFORMATION: ?? Nicotine dependence, 1 pack per day smoking for 27 years ? COMPARISON: ?? 07/15/2020 ? TECHNIQUE: ?? Multidetector volumetric noncontrast CT imaging of the chest was ?? obtained using low-dose screening CT technique. Axial thin section ?? 0.625 mm reformations in soft tissue and lung windows were obtained. ?? Sagittal and coronal reformations were obtained. Axial MIP images were ?? also created and reviewed. ? RECONSTRUCTED WIDTH: ?? 1.25 mm x1.25 mm ? This CT examination was performed using dose optimization techniques as ?? appropriate, variously including the following: ?? *Automated exposure control ?? *Adjustment of mA and/or kV according to patient size (this includes ?? techniques or standardized protocols for targeted exams where dose is ?? matched to indication/reason for exam; i.e. extremities or head) ?? *Use of iterative reconstruction technique ? TOTAL EXAM DLP: ?? 37 mGy-cm. ? CTDIvol: ?? 0.78 mGy. ? FINDINGS: ? PULMONARY NODULES AND LUNGS: There is stable right upper lobe nodule ?? seen on image 109 series 6 measured 0.4 cm, posterior, adjacent to the ?? area of scarring. There are ill-defined stable subpleural right upper ?? lobe nodule inseparable from the fissure, seen on image 284 series 6, ?? measured 0.4 and 0.5 cm. There are linear scarring/atelectasis seen ?? bibasilar more prominent than on the previous examination. ? MEDIASTINUM: No mediastinal adenopathy by size criteria. No obvious ?? hilar adenopathy on this noncontrast study. ? CORONARY ARTERY CALCIFICATION: None visualized on this study. ? THYROID GLAND: Unremarkable to the extent seen. ? CARDIOVASCULAR STRUCTURES: Aorta and heart size normal. No pericardial ?? effusion. ? CHEST WALL/AXILLA: Unremarkable. No evidence of axillary adenopathy by ?? size criteria. ? UPPER ABDOMEN: Included portions of the solid organs in the upper ?? abdomen appear unremarkable on noncontrast imaging. ? OSSEOUS STRUCTURES: No suspicious finding. ? CT/CT lung screening ?? IMPRESSION: ?? 1. ??Stable right upper lobe nodules and scarring. Bibasilar atelectasis ?? 2. ??Lung-RADS 2 ?? 3. ??Category benign. There are no clinically significant or potentially ?? clinically significant findings not related to the lungs requiring ?? urgent additional evaluation. ? RECOMMENDATION: ?? Low dose lung CT. overall in 1 year. ? Dictated By: ?Shanelle Gunderson MD ? Signed By: ?<Electronically signed by Shanelle Gunderson MD in OV> ? 05/13/231448 ? DD/ 1015 ? TD/TT: ? Informatics Analyst: ? Procedure Note David, Sachi - 05/13/[address] [place] [id number] [address] Scan Report Signed Patient: Leda GudinoMR# : [id number] : 1965Acct:[id number] Age/Sex: 58 / FADM Date: 04/29/23 Loc: .CT Attending Dr: Maxine Matos PA-C Ordering Physician: Maxine Matos PA-C Date of Service: 04/29/23 Procedure(s): CT lung screening Accession Number(s): [id number] cc: Maxine Matos PA-C; Lurdes Lo MD EXAMINATION: CT LOW-DOSE SCREENING CHEST WITHOUT CONTRAST CLINICAL INFORMATION: Nicotine dependence, 1 pack per day smoking for 27 years COMPARISON: 07/15/2020 TECHNIQUE: Multidetector volumetric noncontrast CT imaging of the chest was obtained using low-dose screening CT technique. Axial thin section 0.625 mm reformations in soft tissue and lung windows were obtained. Sagittal and coronal reformations were obtained. Axial MIP images were also created and reviewed. RECONSTRUCTED WIDTH: 1.25 mm x1.[address] examination was performed using dose optimization techniques as appropriate, variously including the following: *Automated exposure control *Adjustment of mA and/or kV according to patient size (this includes techniques or standardized protocols for targeted exams where dose is matched to indication/reason for exam; i.e. extremities or head) *Use of iterative reconstruction technique TOTAL EXAM DLP: 37 mGy-cm. CTDIvol: 0.78 mGy. FINDINGS: PULMONARY NODULES AND LUNGS: There is stable right upper lobe nodule seen on image 109 series 6 measured 0.4 cm, posterior, adjacent to the area of scarring. There are ill-defined stable subpleural right upper lobe nodule inseparable from the fissure, seen on image 284 series 6, measured 0.4 and 0.5 cm. There are linear scarring/atelectasis seen bibasilar more prominent than on the previous examination. MEDIASTINUM: No mediastinal adenopathy by size criteria. No obvious hilar adenopathy on this noncontrast study. CORONARY ARTERY CALCIFICATION: None visualized on this study. THYROID GLAND: Unremarkable to the extent seen. CARDIOVASCULAR STRUCTURES: Aorta and heart size normal. No pericardial effusion. CHEST WALL/AXILLA: Unremarkable. No evidence of axillary adenopathy by size criteria. UPPER ABDOMEN: Included portions of the solid organs in the upper abdomen appear unremarkable on noncontrast imaging. OSSEOUS STRUCTURES: No suspicious finding. CT/CT lung screening IMPRESSION: 1. Stable right upper lobe nodules and scarring. Bibasilar atelectasis 2. Lung-RADS 2 3. Category benign. There are no clinically significant or potentially clinically significant findings not related to the lungs requiring urgent additional evaluation. RECOMMENDATION: Low dose lung CT. overall in 1 year. Dictated By: Shanelle Gunderson MD Signed By: <Electronically signed by Shanelle Gunderson MD in OV> 05/13/23 1449 DD/ 1015 TD/TT: Informatics Analyst: [facility] External Provider IMG CT PROCEDURES Final Result * Lipid Panel with Reflex to Direct LDL (11/25/2022 11:38 AM EDT) Triglycerides 163 mg/dL [facility] Comment:Desirable Triglyceri de: less than 150 mg/dLBorderline High Triglyceride 150-199 mg/dLHigh Triglyceride: 200-499 mg/dLVery High Triglyceride: greater than or equal to 5OO mg/dL Cholesterol 188 mg/dL [facility] Comment:Desirable Cholestero l: less than 200 mg/dLBorderline High Cholesterol: 200-239 mg/dLHigh Cholesterol: greater than 239 mg/dL LDL Cholesterol Calculated 102 mg/dl [facility] Comment:Desirable LDL: less than 100 mg/dLNear Optimal/Above Optimal LDL: 110- 129 mg/dLBorderline High LDL: 130-159 mg/dLHigh LDL: 160-189 mg/dLVery High LDL: greater than or equal to 190 mg/dL HDL Cholesterol 54 mg/dL [facility] Comment:Desirable HDL: great er than 40 mg/dL Note: This HDL assay may give artificially low results in patients with liver disease. Blood 11/25/2022 11:3 8 AM EDT 11/25/2022 1:33 PM EDT Lurdes Lo MD LAB BLOOD ORDERABLES Final Resul t [facility] [address] [place], [place] [phone] * Colonoscopy (07/15/2020) Colonoscopy Normal Normal 07/15/2020 [facility] Unassigned Pcp HEALTH MAINTENANCE Edited Result - Final from Last 3 Months or Most Recently Relevant to Health Maintenance [facility] * Guarantor: Nelda Gudinosette Account Type Relation to Patient Date of Phone Billing Address Personal/Family Self [address] Care Teams Cnc Maintenance Mechanic Relationship Specialty Start Date End Date Lurdes Lo MD [address] [place] [address] PCP - General Family Medicine 08/09/22 Ahmet Lombardo, StellaD [address] [place] [address] Pharmacist Internal Medicine 09/03/22 Deepti Boo [place] Recreation ManagerBlueprinting And Photocopy Supervisor 06/13/23 Home Care [facility] 03/05/24
--- OUTSIDE RECORDS SUMMARY | 2024-05-30 08:44 | XMS_ITS | Encounter Summary ---
Author Organization [employer] Address [address] [facility] [address] [place] [address] Care Team Providers Care Head Automatic Sawyer Name Role Phone Lurdes Lo MD Primary Care Provider [phone] Ahmet Lombardo PharmD Unavailable [phone] Reason for Visit * Reason Onset Date Comments chart prep 05/25/2024 Encounter Details Date Type Department Care Team (Late st Contact Info) Description 05/25/2024 Telephone [facility] [address] [place], [place] [phone] Sandee Doll MA chart prep Social History Tobacco Use Types Packs/Day Years [...] encounter Miscellaneous Notes * Telephone Encounter - Sandee Doll MA - 05/25/2024 1:13 PM EST .Chart Prep Labs: not done 09/11/23 Images: not applicable Vaccines due: Covid Due, Hep A Due, and Hep B Due Referrals: Completed Urology 08/09/24 Clinical Esthetician 10/23/2024 Screenings: Not Applicable Overdue care gaps: None documented in this encounter Plan of Treatment [...] documented as of this encounter Care Teams Head Automatic Sawyer Relationship Specialty Start Date End Date Lurdes Lo MD [address] [place] [address] PCP - General Family Medicine 08/09/22 Ahmet Lombardo, StellaD [address] [place] [phone] Pharmacist Internal Medicine 09/03/22 Deepti Boo Director Non ProfitWidth Stripper 06/13/23 Home Care [facility] 03/05/24 documented as of this encounter
--- OUTSIDE RECORDS SUMMARY | 2024-05-30 08:44 | XMS_ITS | Encounter Summary ---
Author Organization [employer] Address [address] [facility] [address] [place] [address] Care Team Providers Care Manager Primary Name Role Phone Lurdes Lo MD Primary Care Provider [phone] Ahmet Lombardo PharmD Unavailable [phone] Encounter Details Date Type Department Care Team (Late st Contact Info) Description 11/01/2022 Abstract [facility] [address] [place] [address] Jayashree Kellogg, DDS [address] [place], [place] [phone] Social History Tobacco Use Types Packs/Day Years Used Date Smoking Tobacco: Every Day Cigarettes 1 30 Smokeless Tobacco: Never Alcohol Use Standard Drinks/Week Comments Never 0 (1 standard drink = 0.6 oz pur e alcohol) Comments Unknown Sex and Gender Information Value Date Recorded Sex Assigned at Female 03/08/2022 10:23 AM EDT Legal Sex Female 10:23 AM EDT Gender Identity Female 03/08/2022 10:23 AM EDT Sexual Orientation Straight 03/08/2022 10 :23 AM EDT COVID-19 Exposure Response Date Recorded In the last 10 days, have yo u been in contact with someone who was confirmed or suspected to have Coronavirus/COVID-19? No / Unsure 10/27/2022 3:27 PM EDT documented as of this encounter Plan of Treatment Not on file documented as of this encounter Goals Goal Patient Goal Type Associated Problems Recent Progress Patient-Stated? Author Quit using tobacco (cigarettes, smokeless, etc) Tobacco Use No Ahmet Lombardo, PharmD documented as of this encounter Visit Diagnoses Not on filedocumented in this encounter Care Teams Manager Primary Relationship Specialty Start Date End Date Lurdes Lo MD [address] [place], [place] [phone] PCP - General Family Medicine 08/09/22 Ahmet Lombardo PharmD [address] [place] [address] Pharmacist Internal Medicine 09/03/22 Deepti Boo Cleaner And PreparerLiquor Rectifier 06/13/23 Home Care [facility] 03/05/24 documented as of this encounter
--- OUTSIDE RECORDS SUMMARY | 2024-05-30 08:44 | XMS_ITS | Encounter Summary ---
Author Organization [employer] Address [address] [facility] [address] [place] [address] Care Team Providers Care Purchasing Manager Name Role Phone Lurdes Lo MD Primary Care Provider [phone] Ahmet Lombardo PharmD Unavailable [phone] Encounter Details Date Type Department Care Team (Latest Contact Info) Description 05/29/2024 Travel Social History Tobacco Use Types Packs/Day Years [...] documented as of this encounter Care Teams Purchasing Manager Relationship Specialty Start Date End Date Lurdes Lo MD [address] [place] [address] PCP - General Family Medicine 08/09/22 Ahmet Lombardo, PharmD [address] [place] [address] Pharmacist Internal Medicine 09/03/22 Deepti Boo Fabric Coating SupervisorVest Busheler 06/13/23 Home Care [facility] 03/05/24 documented as of this encounter
--- OUTSIDE RECORDS SUMMARY | 2024-05-30 08:44 | XMS_ITS | Encounter Summary ---
Author Organization [employer] Address [address] [facility] [address] [place] [address] Care Team Providers Care Jointer Machine Name Role Phone Lurdes oL MD Primary Care Provider [phone] Ahmet Lombardo PharmD Unavailable [phone] Reason for Visit * Reason Onset Date Comments Appointment 01/05/2023 Encounter Details Date Type Department Care Team (Late st Contact Info) Description 01/05/2023 Telephone [facility] [address] [place] [address] Jayashree Kellogg DDS [address] [place] [address] Appointment Social History Tobacco Use Types Packs/Day Years Used Date Smoking Tobacco: Every Day Cigarettes 1 30 Passive Smoke Exposure: Current Smokeless Tobacco: Never Alcohol Use Standard Drinks/Week Comments Never 0 (1 standard drink = 0.6 oz pur e alcohol) Depression Answer Date Recorded Patient Health Questionnaire-9 Score 6 11/25/2022 Depression Answer Date Recorded Patient Health Questionnaire-2 Score 2 11/25/2022 Comments Unknown Sex and Gender Information Value Date Recorded Sex Assigned at Female 03/08/2022 10:23 AM EDT Legal Sex Female 10:23 AM EDT Gender Identity Female 03/08/2022 10:23 AM EDT Sexual Orientation Straight 03/08/2022 10 :23 AM EDT documented as of this encounter Miscellaneous Notes * Telephone Encounter - Jayashree Kellogg DDS - 01/05/2023 2:38 PM EDT Could you schedule the pt for reyesorrow morning for impresson? Thanks, Dr. Lugo * Telephone Encounter - Meghann Dotsons - 01/05/2023 10:43 AM EDT Patient called in stating that she saw provider and provider told her to call the office to schedule an appt to continue treatment. Patient stated she was told that if there were no appts available on schedule, to reach out to provider for scheduling DR documented in this encounter Plan of Treatment Not on file documented as of this encounter Goals Goal Patient Goal Type Associated Problems Recent Progress Patient-Stated? Author Quit using tobacco (cigarettes, smokeless, etc) Tobacco Use No Ahmet Lombardo, Ladonna documented as of this encounter Visit Diagnoses Not on filedocumented in this encounter Additional Health Concerns Assessment Noted Time PHQ-9 Depression Total Score: 6 11/26/19 23 10:34 AM EDT documented as of this encounter Care Teams Jointer Machine Relationship Specialty Start Date End Date Lurdes Lo MD [address] [place] [address] PCP - General Family Medicine 08/09/22 Ahmet Lombardo, StellaD [address] [place] [address] Pharmacist Internal Medicine 09/03/22 Deepti Boo Buildings And Grounds CoordinatorEntry Manager 06/13/23 Home Care [facility] 03/05/24 documented as of this encounter
[2024-05-30 12:12] LABS: MANUAL DIFF FLAG NO
[2024-05-30 12:16] LABS: Basophils Absolute Auto 0.1 X10*3/uL (0.0-0.2); Basophils Percent Auto 0.9 % (0-2); Eosinophils Absolute Auto 0.2 X10*3/uL (0.0-0.4); Eosinophils Percent Auto 3.2 % (0-4); Hematocrit 40.1 % (37.0-47.0); Hemoglobin 13.8 g/dl (12.0-16.0); Imm Gran Abs Auto 0.02 X10*3/uL (0.00-0.03); Imm Gran Pct Auto 0.3 % (0.0-0.4); Lymphocytes Absolute Auto 2.3 X10*3/uL (1.2-4.9); Lymphocytes Percent Auto 32.8 % (20-40); Mean Corpuscular HGB Conc 34.4 g/dl (31.0-35.0); Mean Corpuscular Volume 95.9 fL (80.0-98.0); Mean Platelet Volume 10.5 fL (9.4-12.3); Monocytes Absolute Auto 0.5 X10*3/uL (0.1-1.2); Monocytes Percent Auto 6.8 % (2-11); Neutrophils Absolute Auto 3.9 x10*3/uL (2.0-8.3); Platelet Count 279 X10*3/uL (160-400); Red Blood Count 4.18 X10*6/uL (4.20-5.50); Red Cell Distribution Width 13.2 % (11.0-16.0); White Blood Count 6.9 X10*3/uL (4.8-10.8)
[2024-05-30 12:19] LABS: Estimated Average Glucose 105 mg/dL; Hemoglobin A1C 119.5371 umol/L; Hemoglobin A1c % 5.3 % (<6.0); Total Hemoglobin (HGBA1C) 3475.7284 umol/L
[2024-05-30 12:34] LABS: Alanine Aminotransferase 24 U/L (0-31); Albumin Level 4.4 g/dL (3.5-5.0); Alkaline Phosphatase 76 U/L (39-117); Anion Gap 8 (12-20); Aspartate Amino Transferase 31 U/L (5-31); Bilirubin Total 0.4 mg/dL (0.0-1.0); Blood Urea Nitrogen 8 mg/dL (9-16); C Reactive Protein 0.13 mg/dL (< or = 0.50); Calcium 9.8 mg/dL (8.4-10.2); Carbon Dioxide 30 mmol/L (22-29); Chloride 106 mmol/L (96-108); Cholesterol 202 mg/dL (<200); Estimated Glomerular Filt Rate > 60; Glucose Random 98 mg/dL (60-115); HDL Cholesterol 76 mg/dL (>40); LDL Cholesterol Calculated 107 mg/dL (<100); Potassium 4.1 mmol/L (3.3-5.1); Sodium 140 mmol/L (135-145); Total Protein 7.3 g/dL (6.5-8.0); Triglycerides 95 mg/dL (<150)
[2024-05-30 12:45] LABS: Rheumatoid Factor 23.1 IU/mL (<15.0)
[2024-05-30 12:48] LABS: TSH reflex Free T4 1.95 uIU/mL (0.32-4.0)
[2024-05-30 12:57] LABS: Erythrocyte Sedimentation Rate 8 MM/HR (0-20)
[2024-05-30 14:19] LABS: Reflex LDLD? No
[2024-06-04 14:39] LABS: Cyclic Citrullinated Peptide <16 UNITS
[2024-06-06 14:18] LABS: Anti Nuclear Antibody Screen POSITIVE (NEGATIVE)
== END 2024-05-30 08:33 | disposition home or self-care (01) ==
LOC: HO.HHCL 08:32
PROVIDERS: Visit Provider Family Medicine
DX: M79.7 Fibromyalgia (principal); Z13.1 Encounter for screening for diabetes mellitus; E55.9 Vitamin D deficiency, unspecified; R63.8 Other symptoms and signs concerning food and fluid intake; Z13.220 Encounter for screening for lipoid disorders
CPT/HCPCS: 36415; 80053; 80061; 82306; 83036; 84443; 85025; 85652; 86038; 86039; 86140; 86200; 86431

== ENCOUNTER 2024-06-12 11:41 | Inpatient (IN) | payer MEDICAID, SELFPAY ==
[2024-06-12] VITALS (14 sets, daily range): BP systolic 94–119; BP diastolic 34–98; PULSE 66–99; RESP 16–26; TEMP 36–37.1; O2SAT 89–100; BMI 23.6
--- NOTE | ~2024-06-12 | XR_ITS ---
EXAMINATION: XR CHEST CLINICAL INFORMATION: chest pain COMPARISON: July 29, 2022 TECHNIQUE: Frontal view of the chest was obtained. FINDINGS: Hyperinflated lungs. Pulmonary reticular pattern. No consolidation, pleural effusion or pneumothorax. Cardiomediastinal silhouette is normal in size. Multilevel thoracic spondylosis. XR/XR chest 1V IMPRESSION: Chronic interstitial lung disease. Electronically signed by: James Sánchez MD 06/12/2024 12:27 PM [facility]
--- NOTE | ~2024-06-12 | CT_ITS ---
EXAMINATION: CT CHEST WITHOUT CONTRAST CLINICAL INFORMATION: Bilateral crackles COMPARISON: None available. TECHNIQUE: Multidetector volumetric CT imaging of the chest was done. Axial MIP volume rendering provided. Sagittal and coronal reformatted images were obtained. This CT examination was performed using dose optimization techniques as appropriate, variously including the following: *Automated exposure control *Adjustment of mA and/or kV according to patient size (this includes techniques or standardized protocols for targeted exams where dose is matched to indication/reason for exam; i.e. extremities or head) *Use of iterative reconstruction technique DLP: 149 mGy/cm. FINDINGS: DIRECTOR OF PUBLIC HEALTH: Hyperinflated lungs. LUNGS: There is mild centrilobular emphysema category micronodules throughout both lungs. Two 4 mm nodules are seen in the right middle lobe laterally on axial image 85/4 and 5 mm nodule right lower lobe adjacent to major fissure axial image 86/4. There is patchy parenchymal opacities in the right upper lobe apical posterior segment image 98/6, focal atelectatic changes in both lung bases and lingula and bilateral apical scarring and apical thickening. MEDIASTINUM: Central trachea and the bronchi appears widely patent. The thyroid lobes are symmetrical and normal. No abnormal size mediastinal lymph nodes seen. No pericardial effusion seen. CORONARY ARTERY CALCIFICATION: None visualized on this study. PLEURA: There is minimal bibasilar. No pleural effusion seen. AXILLA: Small scattered left axillary lymph nodes seen. There are benign. The chest wall is unremarkable. UPPER ABDOMEN: Visualized liver, spleen, pancreas and bilateral adrenal glands are unremarkable. There is a left adrenal lesion not well visualized. OSSEOUS STRUCTURES: No aggressive lytic or sclerotic process seen. CT/CT chest wo IV con IMPRESSION: Centrilobular emphysema with scattered pulmonary nodules as described above. There is minimal bibasilar pleural thickening and bibasilar and right upper lobe atelectasis. Focal opacity right upper lobe is likely related to emphysema or atelectasis. Fleischner guidelines were followed. Electronically signed by: Cirilo Quezada MD 06/12/2024 04:58 PM EST
[2024-06-12] MEDS: Albuterol Sulfate 5 MG, Albuterol/Iprat 2.5/0.5MG 3 ML 3 ML INHALE (12:05)
--- NOTE | 2024-06-12 12:24 | ED_ITS ---
HPI - Asthma General Chief Complaint: Dyspnea Stated Complaint: SOB H/O ASTHMA PER EMS Time Seen by Provider: 06/12/24 11:56 Source: patient, EMS, old records reviewed and email deployment specialist Mode of arrival: EMS Limitations: no limitations History of Present Illness ED Provider: ASHLEY NGUYEN Narrative: 59 yo male with PMH of osteoporosis, asthma-COPD overlap syndrome not on home O2, HLD here with c/o 2 days of subjective fevers, cough, wheezing, body aches and nausea vomiting. She notes her grandson was also ill. She has tried nebulizers but no relief. The patient was given IV steroids and nebs en route. She was found to be 88% on RA with EMS MD complaint: asthma attack , shortness of breath and wheezing Onset (ago): day(s) (2) Severity: moderate Context: recent URI Associated symptoms: productive cough and fever Asthma History: childhood onset Treatments Prior to Arrival: inhaled bronchodilator, IV steroid and oxygen Related Data Home Medications ?Medication ?Instructions ?Recorded ?Confirmed amitriptyline 25 mg tablet 25 mg PO BEDTIME 04/30/20 10/27/23 lidocaine 5 % topical patch 2 patch topical DAILY 04/30/20 10/27/23 (Lidoderm) omeprazole 20 mg capsule,delayed 40 mg PO DAILY PRN Acid Reflux 07/16/21 10/27/23 release gabapentin 300 mg capsule 300 mg PO TID 12/07/21 10/27/23 albuterol sulfate 2.5 mg/3 mL 2.5 mg inhalation Q4H PRN Dyspnea 03/14/23 10/27/23 (0.083 %) solution for nebulization ondansetron 4 mg disintegrating 4 mg PO Q6H PRN Nausea And Vomiting 08/24/23 10/27/23 tablet Previous Rx's ?Medication ?Instructions ?Recorded fluticasone furoate 200 1 inh inhalation DAILY 30 days #60 12/27/22 mcg-vilanterol 25 mcg/dose ea inhalation powder (Breo Ellipta) Allergies Allergy/AdvReac Type Severity Reaction Status Date / Time acetaminophen [From Tylenol] Allergy Unknown Nausea and Verified 06/12/24 12:11 Vomiting tramadol [TRAMADOL] Allergy Unknown NAUSEA & Verified 11/21/23 13:08 VOMITING Review of Systems 2 Review of Systems: Constitutional : pos Fever, pos Chills ENT/Mouth : No Hoarseness, No sore throat, No Rhinorrhea Eyes: No Redness, No Discharge, No Vision Changes Cardiovascular : No Chest Pain, positive SOB, positive Dyspnea on Exertion, No Edema Respiratory : positive Cough, pos Sputum, positive Wheezing, Gastrointestinal : No Nausea, No Vomiting, No Diarrhea, No abdominal Pain Genitourinary : No Dysuria, No Hematuria Musculoskeletal : No joint pain, pos Myalgias Skin : No rash Neuro : No Weakness, No Numbness, No Headache Psych : No anxiety, depression All other systems reviewed and are negative PMFSH Past Medical History Attestation statement: The following information was validated with the patient. Source: old records reviewed Medical History Premature menopause History of Helicobacter pylori infection Nicotine dependence, cigarettes, uncomplicated Allergies Asthma Constipation Moderate malnutrition Pulmonary nodules Colitis Acid reflux Vitamin D deficiency Osteoporosis (~2017) Migraines Lupus Osteoarthritis Fibromyalgia Surgical History History of appendectomy (~1982) History of tonsillectomy History of removal of ovarian cyst History of hysterectomy History of resection of small bowel (~2020) History of colonoscopy History of esophagogastroduodenoscopy (EGD) History of elbow surgery (~2010) Family History Family History Father Fibromyalgia Osteoporosis Mother Stroke Social History Social History Household Members: Family Housing: Apartment Do you presently have visiting nurse or other home services: No Alcohol intake: never Comment: Patient sleeping Patient Tobacco Use Status: Current everyday Tobacco user Tobacco use type: Cigarette Cigarette Packs Per Day: 1 Cigarettes Per Day: 20.0 Years Smoked: 23 Second Hand Smoke Exposure: Yes service: No Current occupational status: disabled 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 Physical Exam 2 Vital Signs: Vital Signs: Last Vital Signs Temp 98.8 F 06/12/24 12:09 Pulse 98 06/12/24 13:29 Resp 18 06/12/24 13:29 BP 94/40 L 06/12/24 13:29 Pulse Ox 96 06/12/24 13:29 O2 Del Method Nasal Cannula 06/12/24 13:29 O2 Flow Rate 2 06/12/24 13:29 BMI result Body Mass Index 23.6 Appearance: Alert. Oriented X3. mild acute distress. Eyes: Pupils equal, round and reactive to light. ENT: Pharynx normal. Neck: Normal inspection. Neck supple. CVS: tachycardia heart rate and rhythm. Pulses normal. Respiratory: mild respiratory distress - labored with retractions. Breath sounds diminished with exp wheezes throughout Abdomen: Soft and nontender. Skin: Skin warm and dry. Normal skin color. Normal skin turgor. Extremities: No lower extremity edema. No calf ttp Neuro: Oriented X 3. No motor deficit. No sensory deficit. CN2-12 intact Course Course Course Narrative: focused exam for sepsis performed at 3pm Medications Administered Generic Name Dose Route Start Last Admin Trade Name Freq PRN Reason Stop Dose Admin Azithromycin 500 mg/ Sodium 250 mls @ 125 mls/hr 06/12/24 12:10 06/12/24 12:41 Chloride IV 06/12/24 14:09 125 mls/hr ONCE ONE Administration Lactated Ringer's 1,000 mls @ 999 mls/hr 06/12/24 13:12 06/12/24 13:25 Lr IV 06/12/24 14:12 999 mls/hr .Q1H1M ONE Administration Potassium Chloride 10 meq in 100 mls @ 100 mls/hr 06/12/24 13:15 06/12/24 13:26 Potassium Chloride/H20 IV 06/12/24 17:14 100 mls/hr Q1H NASH Administration Discontinued Medications Generic Name Dose Route Start Last Admin Trade Name Freq PRN Reason Stop Dose Admin Ceftriaxone Sodium 1 gm 06/12/24 12:23 06/12/24 12:38 Ceftriaxone Sodium 1 Gm Vial IVPUSH 06/12/24 12:24 1 gm ONCE ONE Administration Albuterol Sulfate 5 mg/ 0 mg 06/12/24 12:04 06/12/24 12:05 Albuterol/Ipratropium 3 ml INHALE 06/12/24 12:05 1 each ONCE ONE Administration Fentanyl 50 mcg 06/12/24 13:16 06/12/24 13:23 Fentanyl Citrate/Pf 100 Mcg/2 Ml Vial IVPUSH 06/12/24 13:17 50 mcg ONCE ONE Administration Protocol Magnesium Sulfate 2 gm in 50 mls @ 150 mls/hr 06/12/24 12:09 06/12/24 13:13 Magnesium Sulfate/H2o IV 06/12/24 12:28 Infused ONCE ONE Infusion Lactated Ringer's 1,000 mls @ 999 mls/hr 06/12/24 12:23 06/12/24 12:40 Lr IV 06/12/24 13:23 999 mls/hr .Q1H1M ONE Administration Potassium Chloride 20 meq 06/12/24 13:12 06/12/24 13:26 Potassium Chloride Er 20 Meq Tab.Er.Prt PO 06/12/24 13:13 20 meq ONCE ONE Administration Medical Decision Making Medical Decision Making [facility] Narrative: 59 yo male with PMH of osteoporosis, asthma-COPD overlap syndrome not on home O2, HLD here with c/o cough, URI symptoms, body aches, fevers at this time will need basic labs, CXR, EKG, IVF, IV abx, already given steroids will add on magnesium. Suspect viral syndrome, bronchitis, URI, pneumonia. She is on 2L NC at this time if she still requires O2 will need admit. Suspect infectious vs VTE/ACS. Differential Diagnosis Differential Diagnoses: The differential diagnosis associated with the presentation includes asthma, COPD, viral syndrome, pneumonia Admission/Observation Consideration of admission/observation: Escalation of care including admission/observation considered given O2 use needs will admit Lab Data [facility] Lab Attestation statement: I reviewed the patient's lab results. 06/12/24 12:36 06/12/24 12:36 Labs: Lab Results 06/12/24 06/12/24 06/12/24 Range/Units 12:36 12:37 12:41 WBC 4.4 L (4.8-10.8) X10*3/uL RBC 4.09 L (4.20-5.50) X10*6/uL Hgb 13.3 (12.0-16.0) g/dl Hct 38.8 (37.0-47.0) % MCV 94.9 (80.0-98.0) fL MCH 32.5 (27.0-33.0) pg MCHC 34.3 (31.0-35.0) g/dl RDW 13.6 (11.0-16.0) % Plt Count 197 D (160-400) X10*3/uL MPV 9.6 (9.4-12.3) fL Immature Gran % (Auto) 0.5 H (0.0-0.4) % Neut % (Auto) 62.2 (45-73) % Lymph % (Auto) 23.6 (20-40) % [place] % (Auto) 12.8 H (2-11) % Eos % (Auto) 0.2 (0-4) % Baso % (Auto) 0.7 (0-2) % Lymph # (Auto) 1.0 L (1.2-4.9) X10*3/uL [place] # (Auto) 0.6 (0.1-1.2) X10*3/uL Eos # (Auto) 0.0 (0.0-0.4) X10*3/uL Baso # (Auto) 0.0 (0.0-0.2) X10*3/uL Abs Immat Gran (auto) 0.02 (0.00-0.03) X10*3/uL Absolute Neuts (auto) 2.7 (2.0-8.3) x10*3/uL Absolute Nucleated RBC 0.000 (0.0-0.012) X10*3/uL Nucleated RBC % (auto) 0.0 (0.0-0.2) /100WBC VBG pH 7.34 (7.32-7.43) VBG pCO2 51 mmHg VBG pO2 33 mmHg VBG HCO3 28 H (22-26) mmol/L VBG O2 Saturation 51.0 % VBG Base Excess 1.5 mmol/L Sodium 142 (135-145) mmol/L Potassium 2.9 L* D (3.3-5.1) mmol/L Chloride 100 (96-108) mmol/L Carbon Dioxide 24 (22-29) mmol/L Anion Gap 21 H (12-20) BUN 14 (9-16) mg/dL Creatinine 0.77 (0.5-1.4) mg/dL Estim Creat Clear Calc 59.8 Estimated GFR > 60 Random Glucose 148 H (60-115) mg/dL Lactic Acid 4.5 H* (0.5-2.0) mmol/L Calcium 8.7 D (8.4-10.2) mg/dL Magnesium 1.9 (1.6-2.6) mg/dL Total Bilirubin 0.3 (0.0-1.0) mg/dL Direct Bilirubin 0.1 (0.0-0.5) mg/dL AST 50 H (5-31) U/L ALT 36 H (0-31) U/L Alkaline Phosphatase 66 (39-117) U/L Troponin I High Sens < 2.7 (<3.5-17.0) ng/L B-Natriuretic Peptide 48 (<100) pg/mL Total Protein 7.2 (6.5-8.0) g/dL Albumin 4.0 (3.5-5.0) g/dL Lipase 7 L (8-78) U/L Influenza Type A (PCR) POSITIVE A (Negative) Influenza Type B (PCR) NEGATIVE (Negative) RSV RNA Qual (PCR) NEGATIVE (Negative) SARS-CoV-2 RNA (RT-PCR) NEGATIVE (Negative) Independent Interpretation I performed an independent interpretation of an: EKG and Plain X-Ray Interpretation: Rate: Rhythm: [place]: Normal P waves. Normal PRIYA. Normal QRS complex. ST T wave : qTC: prior studies: The study has been interpreted contemporaneously by me. . Radiology Impression Discussion of test interpretation with radiology: I have reviewed the radiologist's reading. Independent Historian Clinical information obtained from an independent historian. History obtained from or confirmed by: EMS External Record Review External record reviewed: Inpatient record and Outpatient record Critical Care Time Critical Care Time Critical Care Time: Yes Total Critical Care Time: 60 Attestation: repeat nebs, IV magnesium, IV potassium, sepsis protocol I attest to this time spent taking care of the patient Discharge Plan Discharge Clinical Impression: Asthma with exacerbation, Acute hypokalemia, Hypomagnesemia, Acidosis, lactic, Influenza A Patient Disposition: Admitted As Inpatient Print Language: Greek
--- NOTE | 2024-06-12 12:28 | ECG_ITS ---
Test Reason : DYSPNEA Blood Pressure : */* mmHG Vent. Rate : 101 BPM Atrial Rate : * BPM P-R Int : * ms QRS Dur : 88 ms QT Int : 532 ms P-R-T Axes : * 86 71 degrees QTcB Int : 689 ms Normal sinus rhythm Nonspecific ST and T wave abnormality Prolonged QT Abnormal ECG When compared with ECG of 11-Apr-2021 20:22, ST now depressed in Inferior leads Inverted T waves have replaced nonspecific T wave abnormality in Anterior leads QT has lengthened Referred By: Shelby Dowling Electronically Signed By: Pedro Cabrera
[2024-06-12] MEDS: cefTRIAXone sodium 1 GM VIAL IVPUSH (12:38)
[2024-06-12] MEDS: Lactated Ringers 1,000 ML 999 ML IV ×2 (12:40→13:25)
[2024-06-12] MEDS: Azithromycin 500 MG in 0.9 % Sodium Chloride 250 ML 125 MG IV (12:41)
[2024-06-12] MEDS: Magnesium Sulfate/H2O 2 GM/50 ML PIGGYBACK IV (12:42)
[2024-06-12 12:43] LABS: MANUAL DIFF FLAG NO
[2024-06-12 12:45] LABS: Basophils Percent Auto 0.7 % (0-2); Eosinophils Percent Auto 0.2 % (0-4); Hematocrit 38.8 % (37.0-47.0); Hemoglobin 13.3 g/dl (12.0-16.0); Imm Gran Abs Auto 0.02 X10*3/uL (0.00-0.03); Imm Gran Pct Auto 0.5 % (0.0-0.4); Lymphocytes Percent Auto 23.6 % (20-40); Mean Corpuscular HGB Conc 34.3 g/dl (31.0-35.0); Mean Corpuscular Hemoglobin 32.5 pg (27.0-33.0); Mean Corpuscular Volume 94.9 fL (80.0-98.0); Mean Platelet Volume 9.6 fL (9.4-12.3); Monocytes Absolute Auto 0.6 X10*3/uL (0.1-1.2); Monocytes Percent Auto 12.8 % (2-11); Neutrophils Absolute Auto 2.7 x10*3/uL (2.0-8.3); Neutrophils Percent Auto 62.2 % (45-73); Platelet Count 197 X10*3/uL (160-400); Red Blood Count 4.09 X10*6/uL (4.20-5.50); Red Cell Distribution Width 13.6 % (11.0-16.0); White Blood Count 4.4 X10*3/uL (4.8-10.8)
[2024-06-12 12:46] LABS: VBG Base Excess 1.5 mmol/L; VBG HCO3 28 mmol/L (22-26); VBG pCO2 51 mmHg; VBG pH 7.34 (7.32-7.43); VBG pO2 33 mmHg
[2024-06-12 12:48] LABS: Venous Blood Gas Refer to POC result
[2024-06-12 13:06] LABS: B Type Natriuretic Peptide 48 pg/mL (<100)
[2024-06-12 13:08] LABS: Troponin-I High Sensitivity < 2.7 ng/L (<3.5-17.0)
[2024-06-12 13:10] LABS: Alanine Aminotransferase 36 U/L (0-31); Alkaline Phosphatase 66 U/L (39-117); Anion Gap 21 (12-20); Aspartate Amino Transferase 50 U/L (5-31); Bilirubin Direct 0.1 mg/dL (0.0-0.5); Blood Urea Nitrogen 14 mg/dL (9-16); Calcium 8.7 mg/dL (8.4-10.2); Carbon Dioxide 24 mmol/L (22-29); Chloride 100 mmol/L (96-108); Creatinine Clr Calc Pharmacy 59.8; Estimated Glomerular Filt Rate > 60; Glucose Random 148 mg/dL (60-115); Lipase 7 U/L (8-78); Magnesium 1.9 mg/dL (1.6-2.6); Potassium 2.9 mmol/L (3.3-5.1); Sodium 142 mmol/L (135-145); Total Protein 7.2 g/dL (6.5-8.0)
[2024-06-12 13:11] LABS: Lactic Acid 4.5 mmol/L (0.5-2.0)
[2024-06-12 13:19] LABS: Bilirubin Total 0.3 mg/dL (0.0-1.0)
[2024-06-12] MEDS: fentaNYL citrate/PF 100 MCG/2 ML VIAL 50 MCG IVPUSH (13:23)
[2024-06-12] MEDS: Potassium Chloride/H20 10 MEQ/100 ML PIGGYBACK 100 MEQ IV ×4 (13:26→17:34)
[2024-06-12] MEDS: Potassium Chloride ER 20 MEQ TAB.ER.PRT PO (13:26)
[2024-06-12 13:28] LABS: Influenza A PCR POSITIVE (Negative); Influenza B PCR NEGATIVE (Negative); Resp Syncy Virus RNA Qual PCR NEGATIVE (Negative); SARS COV2 PCR INHOUSE NEGATIVE (Negative)
--- NOTE | 2024-06-12 13:44 | ED_ITS ---
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 She has n/v as well. Her grandchild was sick and she was exposed. She states she got her flu shot this year. EMS found her 88% on RA, given duonebs and O2 as well as IV solumedrol en route. MD complaint: asthma attack , shortness of breath and wheezing Onset (ago): day(s) (2) Severity: moderate Context: recent URI Associated symptoms: productive cough Asthma History: childhood onset Treatments Prior to Arrival: inhaled bronchodilator, IV steroid and oxygen Related Data Home Medications ?Medication ?Instructions ?Recorded ?Confirmed amitriptyline 25 mg tablet 25 mg PO BEDTIME 04/30/20 10/27/23 lidocaine 5 % topical patch 2 patch topical DAILY 04/30/20 10/27/23 (Lidoderm) omeprazole 20 mg capsule,delayed 40 mg PO DAILY PRN Acid Reflux 07/16/21 10/27/23 release gabapentin 300 mg capsule 300 mg PO TID 12/07/21 10/27/23 albuterol sulfate 2.5 mg/3 mL 2.5 mg inhalation Q4H PRN Dyspnea 03/14/23 10/27/23 (0.083 %) solution for nebulization ondansetron 4 mg disintegrating 4 mg PO Q6H PRN Nausea And Vomiting 08/24/23 10/27/23 tablet Previous Rx's ?Medication ?Instructions ?Recorded fluticasone furoate 200 1 inh inhalation DAILY 30 days #60 12/27/22 mcg-vilanterol 25 mcg/dose ea inhalation powder (Breo Ellipta) Allergies Allergy/AdvReac Type Severity Reaction Status Date / Time acetaminophen [From Tylenol] Allergy Unknown Nausea and Verified 06/12/24 12:11 Vomiting tramadol [TRAMADOL] Allergy Unknown NAUSEA & Verified 11/21/23 13:08 VOMITING Review of Systems 2 Review of Systems: Constitutional : pos Fever, pos Chills ENT/Mouth : No Hoarseness, No sore throat, No Rhinorrhea Eyes: No Redness, No Discharge, No Vision Changes Cardiovascular : No Chest Pain, positive SOB, positive Dyspnea on Exertion, No Edema Respiratory : positive Cough, pos Sputum, positive Wheezing, Gastrointestinal : pos Nausea, pos Vomiting, No Diarrhea, No abdominal Pain Genitourinary : No Dysuria, No Hematuria Musculoskeletal : No joint pain, No Myalgias Skin : No rash Neuro : No Weakness, No Numbness, No Headache Psych : No anxiety, depression All other systems reviewed and are negative [facility] Past Medical History Attestation statement: The following information was validated with the patient. Source: old records reviewed Medical History Premature menopause History of Helicobacter pylori infection Nicotine dependence, cigarettes, uncomplicated Allergies Asthma Constipation Moderate malnutrition Pulmonary nodules Colitis Acid reflux Vitamin D deficiency Osteoporosis (~2017) Migraines Lupus Osteoarthritis Fibromyalgia Surgical History History of appendectomy (~1982) History of tonsillectomy History of removal of ovarian cyst History of hysterectomy History of resection of small bowel (~2020) History of colonoscopy History of esophagogastroduodenoscopy (EGD) History of elbow surgery (~2010) Family History Family History Father Fibromyalgia Osteoporosis Mother Stroke Social History Social History Household Members: Family Housing: Apartment Do you presently have visiting nurse or other home services: No Alcohol intake: never Comment: Patient sleeping Patient Tobacco Use Status: Current everyday Tobacco user Tobacco use type: Cigarette Cigarette Packs Per Day: 1 Cigarettes Per Day: 20.0 Years Smoked: 23 Smoked in Last 30 Days: Yes Second Hand Smoke Exposure: Yes Use of substances other than those prescribed or required for medical reasons: No Advance Directives: No Advance Directives Information Provided: Yes service: No Current occupational status: disabled 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 Physical Exam 2 Vital Signs: Vital Signs: Last Vital Signs Temp 98.8 F 06/12/24 12:09 Pulse 98 06/12/24 13:29 Resp 18 06/12/24 13:29 BP 94/40 L 06/12/24 13:29 Pulse Ox 96 06/12/24 13:29 O2 Del Method Nasal Cannula 06/12/24 13:29 O2 Flow Rate 2 06/12/24 13:29 BMI result Body Mass Index 23.6 Appearance: Alert. Oriented X3. Mild acute distress. Eyes: Pupils equal, round and reactive to light. ENT: Pharynx dry MM Neck: Normal inspection. Neck supple. CVS: tachycardic heart rate and rhythm. Pulses normal. Respiratory: Mild respiratory distress - labored and retractions noted. Breath sounds diminished with diffuse exp wheezes Abdomen: Soft and nontender. Skin: Skin warm and dry. Normal skin color. Normal skin turgor. Extremities: No lower extremity edema. No calf ttp Neuro: Oriented X 3. No motor deficit. No sensory deficit. CN2-12 intact Course Course Course Narrative: azithromycin held given qtc Medications Administered Generic Name Dose Route Start Last Admin Trade Name Freq PRN Reason Stop Dose Admin Azithromycin 500 mg/ Sodium 250 mls @ 125 mls/hr 06/12/24 12:10 06/12/24 12:41 Chloride IV 06/12/24 14:09 125 mls/hr ONCE ONE Administration Lactated Ringer's 1,000 mls @ 999 mls/hr 06/12/24 13:12 06/12/24 13:25 Lr IV 06/12/24 14:12 999 mls/hr .Q1H1M ONE Administration Potassium Chloride 10 meq in 100 mls @ 100 mls/hr 06/12/24 13:15 06/12/24 13:26 Potassium Chloride/H20 IV 06/12/24 17:14 100 mls/hr Q1H NASH Administration Discontinued Medications Generic Name Dose Route Start Last Admin Trade Name Freq PRN Reason Stop Dose Admin Ceftriaxone Sodium 1 gm 06/12/24 12:23 06/12/24 12:38 Ceftriaxone Sodium 1 Gm Vial IVPUSH 06/12/24 12:24 1 gm ONCE ONE Administration Albuterol Sulfate 5 mg/ 0 mg 06/12/24 12:04 06/12/24 12:05 Albuterol/Ipratropium 3 ml INHALE 06/12/24 12:05 1 each ONCE ONE Administration Fentanyl 50 mcg 06/12/24 13:16 06/12/24 13:23 Fentanyl Citrate/Pf 100 Mcg/2 Ml Vial IVPUSH 06/12/24 13:17 50 mcg ONCE ONE Administration Protocol Magnesium Sulfate 2 gm in 50 mls @ 150 mls/hr 06/12/24 12:09 06/12/24 13:13 Magnesium Sulfate/H2o IV 06/12/24 12:28 Infused ONCE ONE Infusion Lactated Ringer's 1,000 mls @ 999 mls/hr 06/12/24 12:23 06/12/24 12:40 Lr IV 06/12/24 13:23 999 mls/hr .Q1H1M ONE Administration Potassium Chloride 20 meq 06/12/24 13:12 06/12/24 13:26 Potassium Chloride Er 20 Meq Tab.Er.Prt PO 06/12/24 13:13 20 meq ONCE ONE Administration Medical Decision Making Medical Decision Making [facility] Narrative: 59 yo female with PMH of asthma-COPD overlap syndrome not on home O2, fibromyalgia, HLD here with c/o URI symtpoms and asthma exacerbation at this time will need labs, CXR, empiric ceftriaxone initial azithro held given qtc, lytes, empiric magnesium, repletion of any other lyte abnormality - suspect either viral syndrome like flu or RSV +/- covid. She has already received IV solumedrol en route. She is requiring O2 suspect admit based off hypoxia Differential Diagnosis Differential Diagnoses: The differential diagnosis associated with the presentation includes URI, pneumonia, lyte abnormality Admission/Observation Consideration of admission/observation: Escalation of care including admission/observation considered admit given qtc and hypoxia Consult Healthcare Provider Management of the patient was discussed with: Hospitalist (will admit) Lab Data [facility] Lab Attestation statement: I reviewed the patient's lab results. 06/12/24 12:36 06/12/24 12:36 Labs: Lab Results 06/12/24 06/12/24 06/12/24 Range/Units 12:36 12:37 12:41 WBC 4.4 L (4.8-10.8) X10*3/uL RBC 4.09 L (4.20-5.50) X10*6/uL Hgb 13.3 (12.0-16.0) g/dl Hct 38.8 (37.0-47.0) % MCV 94.9 (80.0-98.0) fL MCH 32.5 (27.0-33.0) pg MCHC 34.3 (31.0-35.0) g/dl RDW 13.6 (11.0-16.0) % Plt Count 197 D (160-400) X10*3/uL MPV 9.6 (9.4-12.3) fL Immature Gran % (Auto) 0.5 H (0.0-0.4) % Neut % (Auto) 62.2 (45-73) % Lymph % (Auto) 23.6 (20-40) % [place] % (Auto) 12.8 H (2-11) % Eos % (Auto) 0.2 (0-4) % Baso % (Auto) 0.7 (0-2) % Lymph # (Auto) 1.0 L (1.2-4.9) X10*3/uL [place] # (Auto) 0.6 (0.1-1.2) X10*3/uL Eos # (Auto) 0.0 (0.0-0.4) X10*3/uL Baso # (Auto) 0.0 (0.0-0.2) X10*3/uL Abs Immat Gran (auto) 0.02 (0.00-0.03) X10*3/uL Absolute Neuts (auto) 2.7 (2.0-8.3) x10*3/uL Absolute Nucleated RBC 0.000 (0.0-0.012) X10*3/uL Nucleated RBC % (auto) 0.0 (0.0-0.2) /100WBC VBG pH 7.34 (7.32-7.43) VBG pCO2 51 mmHg VBG pO2 33 mmHg VBG HCO3 28 H (22-26) mmol/L VBG O2 Saturation 51.0 % VBG Base Excess 1.5 mmol/L Sodium 142 (135-145) mmol/L Potassium 2.9 L* D (3.3-5.1) mmol/L Chloride 100 (96-108) mmol/L Carbon Dioxide 24 (22-29) mmol/L Anion Gap 21 H (12-20) BUN 14 (9-16) mg/dL Creatinine 0.77 (0.5-1.4) mg/dL Estim Creat Clear Calc 59.8 Estimated GFR > 60 Random Glucose 148 H (60-115) mg/dL Lactic Acid 4.5 H* (0.5-2.0) mmol/L Calcium 8.7 D (8.4-10.2) mg/dL Magnesium 1.9 (1.6-2.6) mg/dL Total Bilirubin 0.3 (0.0-1.0) mg/dL Direct Bilirubin 0.1 (0.0-0.5) mg/dL AST 50 H (5-31) U/L ALT 36 H (0-31) U/L Alkaline Phosphatase 66 (39-117) U/L Troponin I High Sens < 2.7 (<3.5-17.0) ng/L B-Natriuretic Peptide 48 (<100) pg/mL Total Protein 7.2 (6.5-8.0) g/dL Albumin 4.0 (3.5-5.0) g/dL Lipase 7 L (8-78) U/L Influenza Type A (PCR) POSITIVE A (Negative) Influenza Type B (PCR) NEGATIVE (Negative) RSV RNA Qual (PCR) NEGATIVE (Negative) SARS-CoV-2 RNA (RT-PCR) NEGATIVE (Negative) Independent Interpretation I performed an independent interpretation of an: EKG and Plain X-Ray (no pneumonia) Interpretation: Rate: 101 Rhythm: sinus tachycardia [place]: normal Normal P waves. Normal PRIYA. Normal QRS complex. ST T wave : nonspecific ST T wave changes inferior leads, no [place] qTC: 689 prior studies: prolonged qt and nonspecific ST T wave changes The study has been interpreted contemporaneously by me. . Radiology Impression Discussion of test interpretation with radiology: I have reviewed the radiologist's reading. Independent Historian Clinical information obtained from an independent historian. History obtained from or confirmed by: EMS External Record Review External record reviewed: Inpatient record and Outpatient record Critical Care Time Critical Care Time Critical Care Time: Yes Total Critical Care Time: 60 Attestation: IV magnesium, IV potassium, repeat nebs, hypoxia intervention I attest to this time spent taking care of the patient Discharge Plan Discharge Clinical Impression: Asthma with exacerbation, Acute hypokalemia, Hypomagnesemia, Acidosis, lactic, Influenza A, Prolonged QT interval, Hypoxia Patient Disposition: Admitted As Inpatient Print Language: Luxembourgish
--- OUTSIDE RECORDS SUMMARY | 2024-06-12 13:48 | XMS_ITS | Encounter Summary ---
Author Organization [employer] Address [address] [facility] [address] [place] [address] Care Team Providers Care Circuit Board Repair Technician Name Role Phone Lurdes Lo MD Primary Care Provider [phone] Ahmet Lombardo PharmD Unavailable [phone] Reason for Visit * Reason Onset Date Comments Appointment 03/08/2023 Encounter Details Date Type Department Care Team (Late st Contact Info) Description 03/08/2023 Telephone [facility] [address] [place] [address] Jayashree Kellogg DDS [address] [place], [place] [phone] Appointment Social History Tobacco Use Types Packs/Day [...] documented in this encounter Plan of Treatment Upcoming Encounters Date Type Department Care Team (Late st Contact Info) Description 06/19/2024 9:15 AM EST Procedure Visit [facility] [address] [place] [address] Makayla Knott MD [address] [place] [address] documented as of this encounter Goals Goal Patient Goal Type Associated Problems Recent Progress Patient-Stated? Author Quit using tobacco (cigarettes, smokeless, etc) Tobacco Use No Ahmet Lombardo, [place] documented as of this encounter Visit Diagnoses Not on filedocumented in this encounter Additional Health Concerns Assessment Noted Time PHQ-9 Depression Total Score: 6 11/26/19 10:34 AM EDT documented as of this encounter Care Teams Circuit Board Repair Technician Relationship Specialty Start Date End Date Lurdes Lo MD [address] [place] [address] PCP - General Family Medicine 08/09/22 Ahmet Lombardo, PharmD [address] [place] [address] Pharmacist Internal Medicine 09/03/22 Deepti Boo Inclusion SpecialistFire Prevention Specialist 06/13/23 Home Care [facility] 03/05/24 documented as of this encounter
--- OUTSIDE RECORDS SUMMARY | 2024-06-12 13:48 | XMS_ITS | Clinical Summary ---
Author Organization [facility] it Address [address] [place] [address] Care Team Providers Care Assistant Coach Name Role Phone Unavailable Primary Care Provider [...]
--- OUTSIDE RECORDS SUMMARY | 2024-06-12 13:48 | XMS_ITS | Encounter Summary ---
Author Organization [employer] Address [address] [facility] 7t [place] [address] Care Team Providers Care Automation Tester Name Role Phone Lurdes Lo MD Primary Care Provider [phone] Ahmet Lombardo PharmD Unavailable [phone] Reason for Visit * Reason Onset Date Comments Appointment 01/05/2023 Encounter Details Date Type Department Care Team (Late st Contact Info) Description 01/05/2023 Telephone [facility] DENTAL [address] [place] [address] Jayashree Kellogg DDS [address] [place] [address] Appointment Social History Tobacco Use Types Packs/Day [...] Dr. Lugo * Telephone Encounter - Meghann Diane - 01/05/2023 10:43 AM EDT Patient called [...] Description 06/19/2024 9:15 AM EST Procedure Visit [facility] MED[facility] [address] [place] [address] Makayla Knott MD [address] [place] [address] documented as of this encounter Goals Goal Patient Goal Type Associated Problems Recent Progress Patient-Stated? Author Quit using tobacco (cigarettes, smokeless, etc) Tobacco Use No Ahmet Lombardo PharmD documented as of this encounter Visit Diagnoses Not on filedocumented in this encounter Additional Health Concerns Assessment Noted Time PHQ-9 Depression Total Score: 6 11/26/19 23 10:34 AM EDT documented as of this encounter Care Teams Automation Tester Relationship Specialty Start Date End Date Lurdes Lo MD [address] [place] [id number] PCP - General Family Medicine 08/09/22 Ahmet Lombardo, StellaD [address] [place] [address] [phone] Pharmacist Internal Medicine 09/03/22 Deepti Boo Director Of LogisticsEmergency Service Restorer 06/13/23 [facility] 03/05/24 documented as of this encounter
--- OUTSIDE RECORDS SUMMARY | 2024-06-12 13:48 | XMS_ITS | Encounter Summary ---
Author Organization [employer] Address [address] [facility] [address] [place] [address] Care Team Providers Care Family Physician Name Role Phone Lurdes Lo MD Primary Care Provider [phone] Ahmet Lombardo PharmD Unavailable [phone] Reason for Referral * Consultation (Routine) - Authorized Specialty Diagnoses / Procedures Referred By Contac t Referred To Contact Rheumatology Diagnoses Polyarthralgia Elevated antinuclear antibody (CAROLIN) level Rheumatoid factor positive with cyclic citrullinated peptide (CCP) antibody negative Lurdes Lo MD [address] [place] [address] Phone: tel: fax: [facility] [address] [place] [address] Phone: tel: fax: Referral ID Status Reason Start Date Expiration Date Visits Requested Visits Authorized [id number] Authorized Specialty Services Required 06/07/2024 06/07/2025 12 12 Encounter Details Date Type Department Care Team (Late st Contact Info) Description 06/07/2024 Orders Only [facility] MED[facility]INE [address] [place], [place] [phone] Lurdes Lo MD [address] [place], [place] [phone] Polyarthralgia (Primary Dx); Elevated antinuclear antibody (CAROLIN) level; Rheumatoid factor positive with cyclic citrullinated peptide (CCP) antibody negative Social History Tobacco Use Types Packs/Day Years [...] as of this encounter Plan of Treatment Upcoming Encounters Date Type Department Care Team (Late st Contact Info) Description 06/19/2024 9:15 AM EST Procedure Visit [facility] [address] [place] [address] Makayla Knott MD [address] [place] [address] Scheduled Referrals Name Type Priority Associated Diagnoses Orde r Schedule Referral to Rheumatology Outpatient Referral Routine Polyarthralgia Elevated antinuclear antibody (CAROLIN) level Rheumatoid factor positive with cyclic citrullinated peptide (CCP) antibody negative Expected: 06/07/2024 (Approximate), Expires: 06/07/2025 documented as of this encounter Goals Goal Patient Goal Type Associated Problems Recent Progress Patient-Stated? Author Quit using tobacco (cigarettes, smokeless, etc) Tobacco Use No Ahmet Lombardo, PharmD documented as of this encounter Visit Diagnoses Diagnosis Polyarthralgia- Primary Pain in joint, multiple sites Elevated antinuclear antibody (CAROLIN) level Other and unspecified nonspecific immunological findings Rheumatoid factor positive with cyclic citrullinated peptide (CCP) antibody negative documented in this encounter Additional Health Concerns Assessment Noted Time PHQ-9 Depression Total Score: 8 02/13/20 24 11:13 AM EDT documented as of this encounter Care Teams Family Physician Relationship Specialty Start Date End Date Lurdes Lo MD [address] [place] [address] PCP - General Family Medicine 08/09/22 Ahmet Lombardo, PharmD [address] [place] [address] Pharmacist Internal Medicine 09/03/22 Deepti Boo Fiberglass Bonding Machine TenderCross Tie Turner 06/13/23 [facility] 03/05/24 documented as of this encounter
--- OUTSIDE RECORDS SUMMARY | 2024-06-12 13:48 | XMS_ITS | Encounter Summary ---
Author Organization [employer] Address [address] [facility] 7t [place] [address] Care Team Providers Care Chief Reservoir Engineering Name Role Phone Lurdes Lo MD Primary Care Provider [phone] Ahmet Lombardo PharmD Unavailable [phone] Reason for Visit * Reason Onset Date Comments chart prep 05/25/2024 Encounter Details Date Type Department Care Team (Late st Contact Info) Description 05/25/2024 Telephone [facility] MEDICINE [address] [place], [place] [phone] Sandee Doll [place] chart prep Social History [...] Hep B Due Referrals: Completed Urology 08/09/24 General Forecaster 10/23/2024 Screenings: Not Applicable Overdue care gaps: None documented in this encounter Plan of Treatment Upcoming Encounters Date Type Department Care Team (Late st Contact Info) Description 06/19/2024 9:15 AM EST Procedure Visit [facility] MED[facility] [address] [place] [address] Makayla Knott MD [address] [place] [address] documented as of this encounter Goals Goal [...] documented as of this encounter Care Teams Chief Reservoir Engineering Relationship Specialty Start Date End Date Lurdes Lo MD [address] [place], [place] [phone] PCP - General Family Medicine 08/09/22 Ahmet Lombardo, StellaD [address] [place], [place] [phone] Pharmacist Internal Medicine 09/03/22 Deepti Boo Loop Machine OperatorCan Filling And Closing Machine Tender 06/13/23 [facility] 03/05/24 documented as of this encounter
--- OUTSIDE RECORDS SUMMARY | 2024-06-12 13:48 | XMS_ITS | Encounter Summary ---
Author Organization [employer] [facility] Address [address] [place] [address] 7t [place] [address] Care Team Providers Care Plasma Center Nurse Name Role Phone Maria Elena Davis Primary Care Provider [phone] Lurdes Lo MD Primary Care Provider [phone] Ahmet Lombardo PharmD Unavailable [phone] Encounter Details Date Type Department Care Team (Latest Contact Info) Description 02/09/2022 Abstract [facility] CONVERSIONS Dental, Provider, DDS Social History Tobacco [...] Description 06/19/2024 9:15 AM EST Procedure Visit [facility] MEDICINE [address] [place] [address] Makayla Knott MD [address] [place] [address] documented as of this encounter Visit Diagnoses Not on filedocumented in this encounter Care Teams Plasma Center Nurse Relationship Specialty Start Date End Date Maria Elena Davis FNP [address] [place] [address] PCP - General Family Medicine 12/31/21 08/08/22 Lurdes Lo MD [address] [place], [place] [phone] PCP - General Family Medicine 08/09/22 Ahmet Lombardo, StellaD [address] [place], [place] [phone] Pharmacist Internal Medicine 09/03/22 Deepti Boo Medical Record ClerkElectron Tube Assembler 06/13/23 [facility] 03/05/24 documented as of this encounter
--- OUTSIDE RECORDS SUMMARY | 2024-06-12 13:48 | XMS_ITS | Encounter Summary ---
Author Organization [employer] Address [address] [facility] 7t [place] [address] Care Team Providers Care Poultry Trimmer Name Role Phone Lurdes Lo MD Primary Care Provider [phone] Ahmet Lombardo PharmD Unavailable [phone] Encounter Details Date Type Department Care Team [...] Description 06/19/2024 9:15 AM EST Procedure Visit [facility] MEDICINE [address] [place] [address] Makayla Knott MD [address] [place] [address] documented as of this encounter Goals Goal [...] documented as of this encounter Care Teams Poultry Trimmer Relationship Specialty Start Date End Date Lurdes Lo MD [address] [place] [address] PCP - General Family Medicine 08/09/22 Ahmet Lombardo, StellaD [address] [place] [phone] Pharmacist Internal Medicine 09/03/22 Deepti Boo Food MixerEducational/Development Assistant 06/13/23 [facility] 03/05/24 documented as of this encounter
--- OUTSIDE RECORDS SUMMARY | 2024-06-12 13:48 | XMS_ITS | Encounter Summary ---
Author Organization [employer] Address [address] [facility] 7t [place] [address] Care Team Providers Care Mechanical Drawing Teacher Name Role Phone Lurdes Lo MD Primary Care Provider [phone] Ahmet Lombardo PharmD Unavailable [phone] Reason for Visit * Reason Onset Date Comments lung screening 06/06/2024 Encounter Details Date Type Department Care Team (Late st Contact Info) Description 06/06/2024 Telephone [facility] MEDICINE [address] [place], [place] [phone] Sandee Doll [place] lung screening Social History Tobacco Use Types Packs/Day Years [...] Telephone Encounter - Sandee Doll [place] - 06/06/2024 10:10 AM EST Yessenia left lung screening paper on pcp waiting for pcp signature documented in this encounter Plan of Treatment Upcoming Encounters Date Type Department Care Team (Late st Contact Info) Description 06/19/2024 9:15 AM EST Procedure Visit [facility] MEDICINE [address] [place] [address] Makayla Knott MD [address] [place] [address] documented as of this encounter Goals Goal [...] documented as of this encounter Care Teams Mechanical Drawing Teacher Relationship Specialty Start Date End Date Lurdes Lo MD [address] [place] [address] PCP - General Family Medicine 08/09/22 Ahmet Lombardo, PharmD [address] [place] [address] Pharmacist Internal Medicine 09/03/22 Deepti Boo Meter Shop SuperintendentStroke Program Coordinator 06/13/23 Home Care [facility] 03/05/24 documented as of this encounter
--- OUTSIDE RECORDS SUMMARY | 2024-06-12 13:48 | XMS_ITS | Encounter Summary ---
Author Organization [employer] Address [address] [facility] 7t [place] [address] Care Team Providers Care Insurance Counselor Name Role Phone Lurdes Lo MD Primary Care Provider [phone] Ahmet Lombardo PharmD Unavailable [phone] Reason for Visit * Reason Comments Med Refill Encounter Details Date Type Department Care Team (Late st Contact Info) Description 12/01/2023 Refill [facility] MEDICINE [address] [place], [place] [phone] Lurdes Lo MD [address] [place], [place] [phone] Paresthesia of lower extremity Social History Tobacco [...] Description 06/19/2024 9:15 AM EST Procedure Visit [facility] MEDICINE [address] [place] [address] Makayla Knott MD [address] [place] [phone] documented as of this encounter Goals Goal [...] documented as of this encounter Care Teams Insurance Counselor Relationship Specialty Start Date End Date Lurdes Lo MD [address] [place] [id number] PCP - General Family Medicine 08/09/22 Ahmet Lombardo, PharmD [address] [place] [phone] Pharmacist Internal Medicine 09/03/22 Deepti Boo Contact Center Team LeadTransportation Museum Helper 06/13/23 [facility] 03/05/24 documented as of this encounter
--- OUTSIDE RECORDS SUMMARY | 2024-06-12 13:48 | XMS_ITS | Encounter Summary ---
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 indicated.For additional information, please refer tohttp://education.[employer] Mobile/faq/TAM863(This link is being provided for informational/educational purposes only.) CAROLIN Titer 1:320(A) titer [facility] Comment:Reference Range <1:4 0 Negative 1:40-1:80 Low Antibody Level >1:80 Elevated Antibody Level CAROLIN Pattern (A) [facility] Comment:Nuclear, Dense Fine Speckled Abnormal Flag: ADense fine speckled pattern is seen in normalindividuals and rarely associated with systemic lupuserythematosis (SLE), Sjogren's syndrome and systemicsclerosis.AC-2: Dense Fine SpeckledInternational Consensus on CAROLIN Patterns(https://doi.org/10.1515/fxrq-3990-0804)THIS TEST WAS PERFORMED AT:[employer] [place] [phone] LOWRY MD CAROLIN TITER 2 (REF LAB) [facility] CAROLIN Pattern 2 [facility] CAROLIN TITER 3 TNP [facility] CAROLIN PATTERN 3 [facility] Blood Venous blood specimen / Unknown 05/30/2024 8:35 AM EST 05/30/2024 12:05 PM EST us Lurdes Lo MD LAB BLOOD ORDERABLES Final Resul t [facility] [address] [place] [phone] [phone] documented in this encounter Visit Diagnoses Diagnosis Osteoporosis, unspecified osteoporosis type, unspecified pathological fracture presence- Primary Fibromyalgia Unspecified myalgia and myositis Tobacco dependence Tobacco use disorder Depressive disorder Depressive disorder, not elsewhere classified Difficulty maintaining weight Screening for lipid disorders Screening for diabetes mellitus Vitamin D deficiency Asthma-COPD overlap syndrome (CMS/HCC) Trigger ring finger of left hand Polyarthralgia Pain in joint, multiple sites Chest pain, unspecified type documented in this encounter Additional Health Concerns Assessment Noted Time PHQ-9 Depression Total Score: 8 02/13/20 24 11:13 AM EDT documented as of this encounter Care Teams Rehabilitator Relationship Specialty Start Date End Date Lurdes Lo MD [address] [place] [address] PCP - General Family Medicine 08/09/22 Ahmet Lombardo, Ladonna [address] [place] [address] Pharmacist Internal Medicine 09/03/22 Deepti Boo Car Body DesignerWare Tester 06/13/23 [facility] 03/05/24 documented as of this encounter
--- OUTSIDE RECORDS SUMMARY | 2024-06-12 13:48 | XMS_ITS | Encounter Summary ---
Author Organization [employer] Address [address] [facility] 7t [place] [address] Care Team Providers Care Supervisor Of Guidance And Testing Name Role Phone Lurdes Lo MD Primary Care Provider [phone] Ahmet Lombardo PharmD Unavailable [phone] Encounter Details Date Type Department Care Team ([facility] st Contact Info) Description 06/07/2024 Telephone [facility] [address] [place], [place] [phone] Kiarra Carney, EDGAR [address] [place], [place] [phone] Social History Tobacco Use Types Packs/Day Years [...] encounter Miscellaneous Notes * Telephone Encounter - Kiarra Carney RN - 06/07/2024 2:36 PM EST T/C to pt via S Heel Seater Gavin #[id number] to advise of message from PCP re: lab results and referral to Rheumatology. No answer x 2 attempts. No option to leave voicemail. * Telephone Encounter - Kiarra Carney RN - 06/07/2024 2:36 PM EST ----- Message from Lurdes Lo MD sent at 06/07/2024 2:26 PM EST ----- Please inform patient that her inflammatory marker (rheumatoid factor and CAROLIN) is high. I recommendher to be evaluated by leisure studies professor for her pain and weakness. Her symptoms may be due to not only fibromyalgia but also POSSIBLE rheumatoid arthritis. I am making a referral to leisure studies professor. Thank you documented in this encounter Plan of Treatment Upcoming Encounters Date Type Department Care Team (Late st Contact Info) Description 06/19/2024 9:15 AM EST Procedure Visit [facility] [address] [place] [address] Makayla Knott MD [address] [place] [address] documented as of this encounter Goals Goal [...] documented as of this encounter Care Teams Supervisor Of Guidance And Testing Relationship Specialty Start Date End Date Lurdes Lo MD [address] [place] [address] PCP - General Family Medicine 08/09/22 Ahmet Lombardo, PharmD [address] [place] [phone] Pharmacist Internal Medicine 09/03/22 Deepti Boo Dispensing OperatorCommunity Associate 06/13/23 [facility] 03/05/24 documented as of this encounter
--- OUTSIDE RECORDS SUMMARY | 2024-06-12 13:48 | XMS_ITS | Encounter Summary ---
Author Organization [employer] Address [address] [facility] [address]t [place] [address] Care Team Providers Care Correspondence Transcriber Name Role Phone Lurdes Lo MD Primary Care Provider [phone] Ahmet Lombardo PharmD Unavailable [phone] Encounter Details Date Type Department Care Team (Late st Contact Info) Description 06/12/2024 1:20 PM EST Office Visit [facility] [address] [place], [place] [phone] Vanessa Davis MD [address] [place], [place] [phone] Hypoxia (Primary Dx); Asthma-COPD overlap syndrome (CMS/HCC); Acute cough; Shortness of breath Social History Tobacco Use Types Packs/Day Years [...] is your housing situation today? I have ramsse jarrett 02/21/[address] [...] Sign Reading Time Taken Comments Blood Pressure 99/61 06/12/2024 10:23 AM EST Pulse 95 06/12/2024 10:23 AM EST Temperature 36.7 ??C (98 ??F) 06/12/2024 10:23 AM EST Respiratory Rate - - Oxygen Saturation 95% 06/12/2024 10:35 AM EST on 0.5L NC Inhaled Oxygen Concentration - - Weight - - Height - - Body Mass Index - - documented in this encounter Progress Notes * Conchis Beauchamp RN - 06/12/2024 1:20 PM EST Patient presents to walk in center with complaint of cough and SOB pt visibly short of breath O2 sat 88 however unclear of accuracy limited O2 sat due to nails. Patient placed on 2 liters of oxygen with comfort and O2 now 98 on 2 L, pt states she used her nebulizer at 8 am this morning. Patient taken off of oxygen O2 sat dropped back down to 90. Provider to assess patient now. * Vanessa Davis MD - 06/12/2024 1:20 PM EST Subjective History was provided by the patient. Leda Curtis is a 59 y.o. female with past medical history asthma/COPD overlap syndromeand tobacco dependence who presents for evaluation SOB. Patient presents to walk in center with complaint of cough and SOB pt visibly short of breath O2 sat 88 however unclear of accuracy limited O2 sat due to nails. Patient placed on 2 liters of oxygen with comfort and O2 now 98 on 2 L, pt states she used her nebulizer at 8 am this morning. Pt has expiratory wheezing noted bilaterally, increase WOB/SOB noted s/p exertion. Patient reports h/a, cough, SOB, mid-sternal chest discomfort x3 days, and subjective fever on Tuesday, took ibuprofen. Symptoms include cough, shortness of breath, runny nose, chills, and congestion. Onset of symptoms was 4 days ago, unchanged since that time. Associated negative symptoms include nausea, vomiting, and diarrhea. Evaluation to date: none. Treatment to date: none Objective Vitals: 06/12/24 1023 06/12/24 1035 BP: 99/61 BP Location: Left arm Patient Position: Sitting BP Cuff Size: Adult Pulse: 95 Temp: 98 ??F (36.7 ??C) TempSrc: Temporal SpO2: 98% 95% Physical Exam Constitutional: Appearance: Normal appearance. HENT: Right Ear: Tympanic membrane normal. Left Ear: Tympanic membrane normal. Nose: Congestion and rhinorrhea present. Mouth/Throat: Pharynx: Oropharynx is clear. No oropharyngeal exudate. Eyes: Conjunctiva/sclera: Conjunctivae normal. Cardiovascular: Rate and Rhythm: Normal rate and regular rhythm. Heart sounds: Normal heart sounds. Pulmonary: Comments: Patient tachypnic. Initial O2 88% on RA, came up to 96 with 2L O2 and back down to 89 when O2 removed so placed back on. Global wheeze slightly improved after albuterol treatment. Musculoskeletal: Cervical back: Normal range of motion. No rigidity or tenderness. Lymphadenopathy: Cervical: Cervical adenopathy present. Neurological: Mental Status: She is alert. Psychiatric: Behavior: Behavior normal. Office Visit on 06/12/2024 Component Date Value Ref Range Status Rapid COVID Ag 06/12/2024 Negative Final Influenza B 06/12/2024 Negative Negative, Indeterminate Final Influenza A 06/12/2024 Negative Negative, Indeterminate Final Problem List Items Addressed This Visit Hypoxia - Primary 59 year old woman with COPD/asthma overlap syndrome presents with 4 days SOB and cough found to be hypoxic with evidence of mild respiratory distress. Not improved after albuterol therapy. Pt sent to[facility] via ambulance for further evaluation and treatment. She agrees with the plan. Her daughter was notified. Asthma-COPD overlap syndrome (CMS/HCC) Relevant Medications albuterol (2.5 MG/3ML) 0.083% nebulizer solution 2.5 mg (Completed) Other Visit Diagnoses Acute cough Relevant Orders POCT Rapid Covid-19 BinaxNOW (Completed) POCT Rapid Influenza B ALVARES ID NOW (Completed) POCT Rapid Influenza A ALVARES ID NOW (Completed) Shortness of breath Relevant Orders POCT Rapid Covid-19 BinaxNOW (Completed) POCT Rapid Influenza B ALVARES ID NOW (Completed) POCT Rapid Influenza A ALVARES ID NOW (Completed) * Anabel Arenas RN - 06/12/2024 1:20 PM EST See previous triage note. Pt reports subjective fever on Tuesday, h/a, SOB and mid-sternal chest discomfort x3 days. Pt reports she took Ibuprofen last on Tuesday. Pt noted to have Increased SOB/WOB s/p exertion/ambulation. Pt currently on 1L oxygen via nasal cannula. [facility] staff Pam assisting with translation. EMS called by Walk In RN Conchis per verbal order per Dr. Davis. EMS cabinetmaker supervisor arrived first and given verbal report by this RN, per EMS cabinetmaker supervisor awaiting ambulance. later Dr. Davis in room to speak with pt/EMS cabinetmaker supervisor. EMS ambulance arrived around 1118. Pt being transported at [facility]. documented in this encounter Miscellaneous Notes * Assessment & Plan Note - Vanessa Davis MD - 06/12/2024 12:16 PM EST Associated Problem(s): Hypoxia 59 year old woman with COPD/asthma overlap syndrome presents with 4 days SOB and cough found to be hypoxic with evidence of mild respiratory distress. Not improved after albuterol therapy. Pt sent to[facility] via ambulance for further evaluation and treatment. She agrees with the plan. Her daughter was notified. documented in this encounter Plan of Treatment Upcoming Encounters Date Type Department Care Team (Late st Contact Info) Description 06/19/2024 9:15 AM EST Procedure Visit [facility] [address] [place] [address] Makayla Knott MD [address] [place] [address] documented as of this encounter Goals Goal Patient Goal Type Associated Problems Recent Progress Patient-Stated? Author Quit using tobacco (cigarettes, smokeless, etc) Tobacco Use Ahmet Villareal PharmD documented as of this encounter Procedures Procedure Name Priority Date/Time Associated Diagnosis Comments POCT INFLUENZA B (ID NOW RAPID MOLECULAR) Routine 06/12/2024 11:09 AM EST Acute cough Shortness of breath POCT INFLUENZA A (ID NOW RAPID MOLECULAR) Routine 06/12/2024 11:09 AM EST Acute cough Shortness of breath POCT RAPID COVID ANTIGEN Routine 06/12/2024 11:09 AM EST Acute cough Shortness of breath documented in this encounter Results * POCT Rapid Influenza A ALVARES ID NOW (06/12/2024 11:09 AM EST) Influenza A Negative Negative, Indeterminate [facility] Swab 06/12/2024 11:0 9 AM EST us Vanessa Davis MD POINT OF CARE TEST ENTER/E DIT ORDERABLES Final Result [facility] [address] [place] [phone] * POCT Rapid Influenza B ALVARES ID NOW (06/12/2024 11:09 AM EST) Influenza B Negative Negative, Indeterminate [facility] Swab 06/12/2024 11:0 9 AM EST Vanessa Davis MD POINT OF CARE TEST ENTER/E DIT ORDERABLES Final Result Performing Organization Address [facility] Co de Phone Number [facility] [address] [place] [phone] * POCT Rapid Covid-19 BinaxNOW (06/12/2024 11:09 AM EST) Rapid COVID Ag Negative [facility] Nares 06/12/2024 11:0 9 AM EST Vanessa Davis MD POINT OF CARE TEST ENTER/E DIT ORDERABLES Final Result Performing Organization Address [facility] de Phone Number [facility] [address] [place] [phone] documented in this encounter Visit Diagnoses Diagnosis Hypoxia- Primary Hypoxemia Asthma-COPD overlap syndrome (CMS/HCC) Acute cough Shortness of breath documented in this encounter Administered Medications Inactive Administered Medications - up to 3 most recent administrations Medication Order MAR Action Action Date Dose Rate Site albuterol (2.5 MG/3ML) 0.083% nebulizer solution 2.5 mg 2.5 mg, Nebulization, Once, On Tue06/12/24 at 1100, For 1 doseIndications:Asthma-COPD overlap syndrome (CMS/HCC) Given 06/12/2024 10:56 AM EST 2.5 mg documented in this encounter Additional Health Concerns Assessment Noted Time PHQ-9 Depression Total Score: 8 02/13/20 24 11:13 AM EDT documented as of this encounter Care Teams Correspondence Transcriber Relationship Specialty Start Date End Date Lurdes Lo MD [address] [place] [phone] PCP - General Family Medicine 08/09/22 Ahmet Lombardo, PharmD [address] [place] [address] Pharmacist Internal Medicine 09/03/22 Deepti Boo Payroll Human Resources AssistantSql Report Analyst 06/13/23 [facility] 03/05/24 documented as of this encounter
--- OUTSIDE RECORDS SUMMARY | 2024-06-12 13:48 | XMS_ITS | Encounter Summary ---
Author Organization [employer] Address [address] [facility] 7t [place] [address] Care Team Providers Care Protective Officer Name Role Phone Lurdes Lo MD Primary Care Provider [phone] Ahmet Lombardo PharmD Unavailable [phone] Reason for Visit * Reason Onset Date Comments Appointment Request 06/02/2024 Encounter Details Date Type Department Care Team (Late st Contact Info) Description 06/02/2024 Refill [facility] [address] [place], [place] [phone] Lurdes Lo MD [address] [place], [place] [phone] Social History Tobacco Use Types Packs/Day Years [...] encounter Miscellaneous Notes * Telephone Encounter - Janice Thapa MA - 06/04/2024 9:42 AM EST T/C placed spoke with pt, pt agreed to come in on 06/19/24 at 9:15am documented in this encounter Plan of Treatment Upcoming Encounters Date Type Department Care Team (Late st Contact Info) Description 06/19/2024 9:15 AM EST Procedure Visit [facility] [address] [place] [address] Makayla Knott MD [address] [place] [address] documented as of this encounter Goals Goal Patient Goal Type Associated Problems Recent Progress Patient-Stated? Author Quit using tobacco (cigarettes, smokeless, etc) Tobacco Use Ahmet Villareal, StellaD documented as of this encounter Visit Diagnoses Not on filedocumented in this encounter Additional Health Concerns Assessment Noted Time PHQ-9 Depression Total Score: 8 02/13/20 24 11:13 AM EDT documented as of this encounter Care Teams Protective Officer Relationship Specialty Start Date End Date Lurdes Lo MD [address] [place] [address] PCP - General Family Medicine 08/09/22 Ahmet Lombardo, StellaD [address] [place] [address] Pharmacist Internal Medicine 09/03/22 Deepti Boo Finisher Fine Diamond DiesFoiling Machine Adjuster 06/13/23 Home Care [facility] 03/05/24 documented as of this encounter
--- OUTSIDE RECORDS SUMMARY | 2024-06-12 13:48 | XMS_ITS | Encounter Summary ---
Author Organization [employer] Address [address] [facility] 7t [place] [address] Care Team Providers Care Shredding Machine Tender Name Role Phone Lurdes Lo MD Primary Care Provider [phone] Ahmet Lombardo PharmD Unavailable [phone] Reason for Visit * Reason Comments Med Refill Encounter Details Date Type Department Care Team ([facility] st Contact Info) Description 02/21/2023 Refill [facility] [address] [place], [place] [phone] [facility] [address] [place], [place] [phone] Social History Tobacco Use Types Packs/Day Years [...] [facility] [address] [place] [phone] Makayla Knott MD [address] [place] [phone] documented as of this encounter Goals Goal [...] documented as of this encounter Care Teams Shredding Machine Tender Relationship Specialty Start Date End Date Lurdes Lo MD [address] [place] [phone] PCP - General Family Medicine 08/09/22 Ahemt Lombardo, PharmD [address] [place] [phone] Pharmacist Internal Medicine 09/03/[address] InterpreterVine Pruner 06/13/23 [facility] 03/05/24 documented as of this encounter
--- OUTSIDE RECORDS SUMMARY | 2024-06-12 13:48 | XMS_ITS | Encounter Summary ---
Author Organization [employer] Address [address] [facility] 7t [place] [address] Care Team Providers Care Upsetter Helper Name Role Phone Lurdes Lo MD Primary Care Provider Ahmet Lombardo PharmD Unavailable [phone] Encounter Details Date Type Department Care Team (Late st Contact Info) Description 11/01/2022 Abstract [facility] [address] [place] [address] Jayashree Kellogg DDS [address] [place], [place] [phone] Social History Tobacco Use Types Packs/Day Years [...] 9:15 AM EST Procedure Visit [facility] [address] [place], [place] [phone] Makayla Knott MD [address] [place] [phone] documented as of this encounter Goals Goal Patient Goal Type Associated Problems Recent Progress Patient-Stated? Author Quit using tobacco (cigarettes, smokeless, etc) Tobacco Use No Ahmet Lombardo, Ladonna documented as of this encounter Visit Diagnoses Not on filedocumented in this encounter Care Teams Upsetter Helper Relationship Specialty Start Date End Date Lurdes Lo MD [address] [place] [address] PCP - General Family Medicine 08/09/22 Ahmet Lombardo, PharmD [address] [place] [address] Pharmacist Internal Medicine 09/03/22 Deepti Boo Contract AttorneyExceptional Student Education Aide 06/13/23 Home Care COUNTS INCLUDE 234 BEDS AT [facility] 03/05/24 documented as of this encounter
--- OUTSIDE RECORDS SUMMARY | 2024-06-12 13:48 | XMS_ITS | Encounter Summary ---
Author Organization [employer] Address [address] [facility] 7t [place] [address] Care Team Providers Care Home Organizer Name Role Phone Lurdes Lo MD Primary Care Provider [phone] Ahmet Lombardo PharmD Unavailable [phone] Encounter Details Date Type Department Care Team (Latest Contact Info) Description 06/12/2024 Travel Social History Tobacco Use Types Packs/Day [...] Description 06/19/2024 9:15 AM EST Procedure Visit [facility] [address] [place] [address] Makayla Knott MD [address] [place] [address] documented as of this encounter Goals Goal [...] documented as of this encounter Care Teams Home Organizer Relationship Specialty Start Date End Date Lurdes Lo MD [address] [place] [address] PCP - General Family Medicine 08/09/22 Ahmet Lombardo, StellaD [address] [place] [phone] Pharmacist Internal Medicine 09/03/22 Deepti Boo Licensed ArchitectPrescription Clerk Lenses 06/13/23 [facility] 03/05/24 documented as of this encounter
--- OUTSIDE RECORDS SUMMARY | 2024-06-12 13:48 | XMS_ITS | Clinical Summary ---
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 60 tablet 5 022 Active cholecalciferol (Vitamin D-3) 50 MCG (2000 UT) capsule Take 1 capsule by mouth in the morning. Active docusate sodium (Colace) 100 MG capsule take 2 capsule by oral route at bedtime every day as needed Active triamcinolone (Kenalog) 0.5 % ointment Apply topically every 12 (twelve) hours. 022 Active Ventolin HFA 108 (90 Base) MCG/ACT inhaler INHALE 2 PUFFS BY MOUTH EVERY 4 TO 6 HOURS NEEDED FOR WHEEZING OR SHORTNESS OF BREATH 022 Active Breo Ellipta 200-25 MCG/ACT aerosol powder INHALE 1 PUFF BY MOUTH EVERY DAY. RINSE MOUTH AFTER USING. 023 Active Incruse Ellipta 62.5 MCG/ACT aerosol powder INHALE 1 PUFF EVERY DAY AT THE SAME TIME 023 Active montelukast (Singulair) 10 MG tablet TAKE 1 TABLET BY MOUTH EVERY MORNING 90 tablet 3 Active DULoxetine (Cymbalta) [address] capsule Take 1 capsule (20 mg) by mouth Once per day. Do not crush or chew. 30 capsule 11 024 2024 Active amitriptyline (Elavil) 25 MG tablet TAKE 1 TABLET BY MOUTH DAILY AT BEDTIME 90 tablet 3 Active chlorhexidine (Peridex) 0.12 % [...] BY MOUTH BEFORE BREAKFAST 90 capsule 1 Active dicyclomine (Bentyl) 20 MG tablet TAKE 1 TABLET BY MOUTH UP TO FOUR TIMES DAILY NEEDED FOR GAS 120 tablet 3 Active cetirizine (ZyrTEC) 10 MG tablet Take 1 tablet (10 mg) by mouth in the morning. 30 tablet 11 023 2024 Discontinued(M ed list cleanup (will not trigger notification to Pharmacy)) dicyclomine (Bentyl) 20 MG tablet TAKE 1 TABLET BY MOUTH UP TO FOUR TIMES DAILY NEEDED FOR ABDOMINAL PAIN 120 tablet 3 024 2024 Discontinued Hospital, Clinic, or Other Facility Administered Medication Ordered Dose Route Frequency Start Date End Date Status albuterol (2.5 MG/3ML) 0.083% nebulizer solution 2.5 mgIndications:Asthma -COPD overlap syndrome (CMS/HCC) 2.5 mg NEBULIZATION Once 06/12/2024 06/12/2024 Ende d Active Problems Problem Noted Date Diagnosed Date Hypoxia 06/12/2024 Assessment & Plan (06/12/2024 12:16 PM EST): 59 year old woman with COPD/asthma overlap syndrome presents with 4 days SOB and cough found to be hypoxic with evidence of mild respiratory distress. Not improved after albuterol therapy. Pt sent to ER via ambulance for further evaluation and treatment. She agrees with the plan. Her daughter was notified. Polyarthralgia 06/02/2024 Assessment & Plan (06/02/2024 5:38 PM EST): - history of CAROLIN 1:160 in 2018 - seen by assembly manager. Normal ESR and CRP. Attributed to fibromyalgia - will check lab again Gabapentin overdose 02/17/2024 Assessment & Plan (02/17/2024 [...] (02/19/2024 6:49 PM EDT): - seen by [facility] Ortho in October 2023, Dx tendinitis - [...] of left hand 11/26/2022 Assessment & Plan (06/02/2024 5:25 PM EST): - seen by [facility] Orthopedist in Dec 2022 - She gave an informed consent to surgical release; she decided to continue to treat conservatively - continue conservative management for now Assessment & Plan (02/19/2024 6:50 PM EDT): - seen by [facility] Orthopedist in Dec 2022 - She gave an informed consent to surgical release; she decided to continue to treat conservatively - continue conservative management for now Assessment & Plan (04/22/2023 5:31 PM EST): - seen by [facility] Orthopedist in Dec 2022 - She gave an informed consent to surgical release; she has not scheduled a surgery date yet. - continue conservative management for now; encouraged to schedule a follow up appt with ortho Assessment & Plan (11/26/2022 7:38 AM EDT): - refer to orthopedist Asthma-COPD overlap syndrome 11/25/2022 Assessment & Plan (06/02/2024 5:24 PM EST): - followed by [facility] pulmonology and lung cancer screening program, last [...] working on smoking cessation Assessment & Plan (02/19/2024 6:45 PM EDT): - followed by Dr. Olivera, [facility] pulmonology, last seen in Apr 2023 - [...] 9:52 PM EDT): - followed by Dr. Olivera, [facility] pulmonology, last seen in Dec 2022 - [...] PM EST): - followed by Dr. Olivera, [facility] pulmonology, last seen in Dec 2022 - [...] AM EDT): - followed by Dr. Olivera, [facility] pulmonology, last seen in October 2022 - [...] ondansetron prn Osteoporosis 08/18/2018 Assessment & Plan (06/02/2024 5:35 PM EST): - followed by [facility] Endocrinology, last seen in Dec 2022 - [...] nutritional supplement Advised to follow up with [facility] Endo. Assessment & Plan (02/19/2024 6:47 PM EDT): - followed by [facility] Endocrinology, Dr. Martini, encouraged to schedule appt. - previously on bisphosphonate, but pt discontinued due to side effects and was seen by Dr. Martini to discuss about alternative medications - work on smoking cessation - continue weight-bearing exercise - continue nutritional supplement Assessment & Plan (09/07/2023 9:54 PM EDT): - followed by [facility] Endocrinology, Dr. Martini - previously on bisphosphonate, but pt discontinued due to side effects - work on smoking cessation - continue weight-bearing exercise - continue nutritional supplement Assessment & Plan (04/22/2023 5:39 PM EST): - followed by [facility] Endocrinology, Dr. Martini - previously on bisphosphonate, but pt discontinued due to side effects - work on smoking cessation - continue weight-bearing exercise - continue nutritional supplement Assessment & Plan (11/26/2022 7:34 AM EDT): - followed by [facility] Endocrinology, Dr. Martini - continue bisphosphonate - work on smoking cessation - continue weight-bearing exercise - continue nutritional supplement Insomnia 04/06/2018 Postablative ovarian failure 04/06/2018 H/O: hysterectomy 01/28/2017 Macrocytosis without anemia 01/28/2017 Pure hypercholesterolemia 01/28/2017 Depressive disorder 07/31/2013 Assessment & Plan (06/02/2024 5:52 PM EST): - GAD7 score 7 and PHQ9 score [...] duloxetine - Continue following up with therapy Assessment [...] nutritional supplement Fibromyalgia 07/31/2013 Assessment & Plan (06/02/2024 5:50 PM EST): - continue amitriptyline - continue duloxetine - continue judicious byron of gabapentin, increased dose to 400 mg, 3 times daily. - continue lidocaine patch - continue diclofenac topical - stress reduction - refer to Dr. Knott for trigger point injection Assessment & Plan (02/19/2024 6:48 PM EDT): [...] 07/31/2013 Tobacco dependence 07/31/2013 Assessment & Plan (06/02/2024 5:40 PM EST): - 30 pack year - last [...] Encounters Date Type Department Care Team Description 06/12/2024 1:20 PM EST Office Visit [facility] [address] [place] [address] Vanessa Davis MD Hypoxia (Primary Dx); Asthma-COPD overlap syndrome (CMS/HCC); Acute cough; Shortness of breath 06/12/2024 Travel 06/07/2024 Telephone [facility] [address] [place] [address] Kiarra Carney, EDGAR 06/07/2024 Orders Only [facility] [address] [place] [phone] Lurdes Lo MD Polyarthralgia (Primary Dx); Elevated antinuclear antibody (CAROLIN) level; Rheumatoid factor positive with cyclic citrullinated peptide (CCP) antibody negative 06/06/[address] [address] Sandee Doll [place] lung screening 06/02/[address] [address] Lurdes Lo MD 05/29/2024 1:15 PM EST Office Visit [address] [address] Lurdes Lo MD Osteoporosis, unspecified osteoporosis type, unspecified pathological fracture presence (Primary Dx); Fibromyalgia; Tobacco dependence; Depressive disorder; Difficulty maintaining weight; Screening for lipid disorders; Screening for diabetes mellitus; Vitamin D deficiency; Asthma-COPD overlap syndrome (CMS/HCC); Trigger ring finger of left hand; Polyarthralgia; Chest pain, unspecified type 05/29/2024 Travel 05/25/[address] [address] Sandee Doll [place] chart prep 05/06/2024 Refill [facility] [address] [place], [place] [phone] Lurdes Lo MD Dyspepsia 04/12/2024 Refill [facility] [address] [place] [address] Lurdes Lo MD 03/21/2024 3:00 PM EST Office Visit [facility] [address] [place] [phone] Altamirano-Lugo, Jayashree, DDS Teeth missing (Primary Dx) 03/13/2024 2:30 PM EST Office Visit [facility] [address] [place] [phone] Altamirano-Lugo, Jayashree, DDS Teeth missing (Primary Dx) [...] is your housing situation today? I have ramseslilly jarrett 02/21/[address] you [...] EST Temperature 36.7 ??C (98 ??F) 06/12/2024 10: 23 AM EST Respiratory Rate 20 05/29/2024 1:23 PM EST Oxygen Saturation 95% 06/12/2024 10: 35 AM EST on 0.5L NC Inhaled Oxygen Concentration - - Weight 50.3 kg (110 lb 12.8 oz) 025 1:23 PM EST Height 160 cm (5' 3 ) 09/07/2023 10:04 AM EDT Body Mass Index 19.63 09/07/2023 10:04 AM EDT Plan of Treatment Upcoming Encounters Date Type Department Care Team (Late st Contact Info) Description 06/19/2024 9:15 AM EST Procedure Visit [facility] [address] [place] [address] Makayla Knott MD [address] [place] [address] Health Maintenance Due Date Last Done Comments CT Colonography 1967 FIT DNA/Cologuard 1967 FIT 1967 FOBT 1967 HIV Screening 1967 Sigmoidoscopy 1967 Hepatitis C Screening 1985 Hepatitis A Vaccines (1 of 2 - Risk 2-dose series) 1986 Pap Smear 01/30/1988 Cervical Cancer Screening 1997 HPV/Cotest 1997 Dental X-Ray: Full Mouth 01/05/2019 01/05/2016 Dental X-Ray: Bitewings 09/01/2022 09/01/19 22, 06/19/2019, 05/03/2018, Additional history exists Dental Prophylaxis 05/28/2023 11/24/2022, 1 , 05/13/2016 Dental Oral Exam 08/24/2023 02/21/2023, , 02/09/2022, Additional history exists Hepatitis B Vaccines (2 of 2 - CpG 2-dose series) 10/05/2023 09/07/2023 Zoster Vaccines (2 of 2) 11/02/2023 09/07/2023 COVID-19 Vaccine (3 - season) 2024 10/02/2020, 09/04/2020 Lung Cancer Screening 04/29/2024 04/29/2023 SDOH Screening 08/28/2024 08/29/2023 Alcohol/Substance Use Screening 02/12/2025 02/13/2024 Depression Screening 02/12/2025 02/13/2024, 02/13/20 Tobacco Screening 03/21/2025 03/21/2024 Colonoscopy 07/15/2025 07/15/2020 Colorectal Cancer Screening 07/15/2025 Mammogram 09/26/2025 09/27/2023 Lipid Panel 05/30/2029 05/30/2024, 11/25/2022 DTaP/Tdap/Td Vaccines (2 - Td or Tdap) 04/05/2033 04/05/2023 RSV Patients and Patients Aged 60 years or older (1 - 1-dose 75+ series) 2042 Pneumococcal Vaccine: 50+ Years Completed 04/05/2023 Influenza Vaccine Completed 02/13/2024, , [...] etc) Tobacco Use No Ahmet Lombardo, PharmD Procedures Procedure Name Priority Date/Time Associated Diagnosis Comments POCT INFLUENZA A (ID NOW RAPID MOLECULAR) Routine 06/12/2024 11:09 AM EST Acute cough Shortness of breath POCT INFLUENZA B (ID NOW RAPID MOLECULAR) Routine 06/12/2024 11:09 AM EST Acute cough Shortness of breath POCT RAPID COVID ANTIGEN Routine 06/12/2024 11:09 AM EST Acute cough Shortness of breath ECG 12-LEAD Routine 06/02/2024 6:01 PM EST Chest pain, unspecified type VITAMIN D,25-OH,TOTAL,IA Routine 05/30/2024 8:35 AM EST Vitamin D deficiency CBC WITH AUTO DIFFERENTIAL Routine 05/30/2024 8:35 AM EST Difficulty maintaining weight HEMOGLOBIN A1C Routine 05/30/2024 8:35 AM EST Screening for diabetes mellitus TSH W/REFLEX TO FT4 Routine 05/30/2024 8 :35 AM EST Difficulty maintaining weight LIPID PANEL WITH REFLEX TO DIRECT LDL Routine 05/30/2024 8:35 AM EST Screening for lipid disorders COMPREHENSIVE METABOLIC PANEL Routine 05/30/2024 8:35 AM EST Fibromyalgia SED RATE BY MODIFIED WESTERGREN Routine 05/30/2024 8:35 AM EST Fibromyalgia C-REACTIVE PROTEIN Routine 05/30/2024 8: 35 AM EST Fibromyalgia CYCLIC CITRULLINATED PEPTIDE (CCP) AB (IGG) Routine 05/30/2024 8:35 AM EST Fibromyalgia RHEUMATOID FACTOR Routine 05/30/2024 8:3 5 AM EST Fibromyalgia CAROLIN SCREEN, IFA, W/REFL TITER AND PATTERN Routine 05/30/2024 8:35 AM EST Fibromyalgia [employer] - PROFESSIONAL VISITS - [...] Routine 03/13/2024 2:30 PM EST Teeth missing BI MAMMOGRAM SCREENING TOMOSYNTHESIS BILATERAL Routine 09/27/2023 12:26 PM EDT Breast cancer screening by mammogram LDCT LUNG SCREENING Routine 04/29/2023 1 0:15 AM EST PERIODIC ORAL EVALUATION - ESTABLISHED PATIENT Routine 02/21/2023 3:30 PM EDT Encounter for dental examination Dental caries PROPHYLAXIS - ADULT Routine 11/24/2022 3 :00 PM EDT BITEWING - SINGLE RADIOGRAPHIC IMAGE Routine 08/31/2021 12:00 AM EDT HM COLONOSCOPY Routine 07/15/2020 DIAGNOSTIC - DIAGNOSTIC IMAGING - INTRAORAL - COMPREHENSIVE SERIES OF RADIOGRAPHIC IMAGES Routine 01/05/2016 12:00 AM EDT from Last 3 Months or Most Recently Relevant to Health Maintenance Results * POCT Rapid Influenza B ALVARES ID NOW (06/12/2024 11:09 AM EST) Influenza B Negative Negative, Indeterminate [facility] Swab 06/12/2024 11:0 9 AM EST Vanessa Davis MD POINT OF CARE TEST ENTER/E DIT ORDERABLES Final Result [facility] [address] [place] [phone] * POCT Rapid Influenza A ALVARES ID NOW (06/12/2024 11:09 AM EST) Influenza A Negative Negative, Indeterminate [facility] Swab 06/12/2024 11:0 9 AM EST Vanessa Davis MD POINT OF CARE TEST ENTER/E DIT ORDERABLES Final Result Performing Organization Address [facility]/ZIP Co de Phone Number [facility] [address] [place] [phone] * POCT Rapid Covid-19 BinaxNOW (06/12/2024 11:09 AM EST) Pathologist [facility] Rapid COVID Ag Negative [facility] Nares 06/12/2024 11:0 9 AM EST Vanessa Davis MD POINT OF CARE TEST ENTER/E DIT ORDERABLES Final Result Performing Organization Address [facility] Co de Phone Number [facility] [address] [place] [phone] * ECG 12 lead (06/02/2024 6:01 PM EST) Narrative Lurdes Lo MD - 06/02/2024 6:01 PM EST Sinus rhythm. ??Normal MA, QRS, and QTc. ??Normal axis. ??No acute ischemic ST-T changes. ??No hypertrophy. Lurdes Lo MD ECG ORDERABLES Final Result * Vitamin D, 25-Hydroxy, Total, Immunoassay (05/30/2024 8:35 AM EST) Pathologist [facility] Vitamin D 25-OH Total 43.0 >30 ng/mL [facility] Comment:Health Based Referen ce Values*< 20 ng/mL Ikbgmatmv30-97 ng/mL Insufficient> 30 ng/mL Sufficient*Maxwell BATRES. N [...] ORDERABLES Final Resul t Performing Organization Address [facility] Co ms Phone Number [facility] [address] [place] [phone] * TSH with Reflex to Free T4 (05/30/2024 8:35 AM EST) TSH reflex Free T4 1.95 0.32 - 4.0 uIU/mL [facility] Blood 05/30/2024 8:35 AM EST 05/30/2024 12:05 PM EST Lurdes Lo MD LAB BLOOD ORDERABLES Final Resul t Performing Organization Address [facility] Co de Phone Number [facility] [address] [place] [phone] * (ABNORMAL) Lipid Panel with Reflex to Direct LDL (05/30/2024 8:35 AM EST) Triglycerides 95 <150 mg/dL [facility] Comment:Desirable Triglyceri de: less than 150 mg/dLBorderline High Triglyceride 150-199 mg/dLHigh Triglyceride: 200-499 mg/dLVery High Triglyceride: greater than or equal to 5OO mg/dL Cholesterol 202(H) <200 mg/dL [facility] Comment:Desirable Cholestero l: less than 200 mg/dLBorderline High Cholesterol: 200-239 mg/dLHigh Cholesterol: greater than 239 mg/dL LDL Cholesterol Calculated 107(H) <100 mg/dL [facility] Comment:Desirable LDL: less than 100 mg/dLNear Optimal/Above Optimal LDL: 110- 129 mg/dLBorderline High LDL: 130-159 mg/dLHigh LDL: 160-189 mg/dLVery High LDL: greater than or equal to 190 mg/dL HDL Cholesterol 76 >40 mg/dL [facility] Comment:Desirable HDL: great er than 40 mg/dL Note: This HDL assay may give artificially low results in patients with liver disease. Blood 05/30/2024 8:35 AM EST 05/30/2024 12:05 PM EST us Lurdes Lo MD LAB BLOOD ORDERABLES Final Resul t [facility] [address] [place] [phone] * (ABNORMAL) CBC auto differential (05/30/2024 8:35 AM EST) White Blood Count 6.9 4.8 - 10.8 X10*3/uL [facility] Red Blood Count 4.18(L) 4.20 - 5.50 X10*6/uL [facility] Hemoglobin 13.8 12.0 - 16.0 g/dl [facility] Hematocrit 40.1 37.0 - 47.0 % [facility] Mean Corpuscular Volume 95.9 80.0 - 98.0 fL [facility] Mean Corpuscular Hemoglobin 33.0 27.0 - 33.0 pg [facility] Mean Corpuscular HGB Conc 34.4 31.0 - 35.0 g/dl [facility] Red Cell Distribution Width 13.2 11.0 - 16.0 % [facility] Platelet Count 279 160 - 400 X10*3/uL [facility] Mean Platelet Volume 10.5 9.4 - 12.3 fL [facility] Neutrophils Percent Auto 56.0 45 - 73 % [facility] Imm Gran Pct Auto 0.3 0.0 - 0.4 % [facility] Lymphocytes Percent Auto 32.8 20 - 40 % [facility] Monocytes Percent Auto 6.8 2 - 11 % [facility] Eosinophils Percent Auto 3.2 0 - 4 % [facility] Basophils Percent Auto 0.9 0 - 2 % [facility] NRBC Pct Auto 0.0 0.0 - 0.2 /100WBC [facility] Neutrophils Absolute Auto 3.9 2.0 - 8.3 x10*3/uL [facility] Imm Gran Abs Auto 0.02 0.00 - 0.03 X10*3/uL [facility] Lymphocytes Absolute Auto 2.3 1.2 - 4.9 X10*3/uL [facility] Monocytes Absolute Auto 0.5 0.1 - 1.2 X10*3/uL [facility] Eosinophils Absolute Auto 0.2 0.0 - 0.4 X10*3/uL [facility] Basophils Absolute Auto 0.1 0.0 - 0.2 X10*3/uL [facility] NRBC Abs Auto 0.000 0.0 - 0.012 X10*3/uL [facility] Blood Venous blood specimen / Unknown 05/30/2024 8:35 AM EST 05/30/2024 12:05 PM EST us Lurdes Lo MD LAB BLOOD ORDERABLES Final Resul t [facility] [address] [place] [phone] * Cyclic Citrullinated Peptide (CCP) Antibody (IgG) (05/30/2024 8:35 AM EST) Cyclic Citrullinated Peptide <16 UNITS [facility] Comment:Reference RangeNegat jhony: <20Weak Positive: 20-39Moderate Positive: 40-59Strong Positive: >59THIS TEST WAS PERFORMED AT:[facility] [employer] [place] [phone] LOWRY MD Blood Venous blood specimen / Unknown 05/30/2024 8:35 AM EST 05/30/2024 12:05 PM EST us Lurdes Lo MD LAB BLOOD ORDERABLES Final Resul t Performing Organization Address [facility] Co de Phone Number [facility] [address] [place] [phone] * Sed Rate by Modified Westergren (05/30/2024 8:35 AM EST) Erythrocyte Sedimentation Rate 8 0 - 20 MM/HR [facility] Comment:Patients with polycy themia and many hemoglobin abnormalitiesmay have depressed sed rates whereas patients with anemiamay have elevated sed rates. Blood Venous blood specimen / Unknown 05/30/2024 8:35 AM EST 05/30/2024 12:05 PM EST us Lurdes Lo MD LAB BLOOD ORDERABLES Final Resul t Performing Organization Address [facility] Co de Phone Number [facility] [address] [place] [phone] * (ABNORMAL) Rheumatoid Factor (05/30/2024 8:35 AM EST) Pathologist [facility] Rheumatoid Factor 23.1(H) <15.0 IU/mL [facility] Blood Venous blood specimen / Unknown 05/30/2024 8:35 AM EST 05/30/2024 12:05 PM EST Lurdes Lo MD LAB BLOOD ORDERABLES Final Resul t Performing Organization Address City/[facility] Co de Phone Number [facility] [address] [place] [phone] * C-reactive Protein (05/30/2024 8:35 AM EST) C Reactive Protein 0.13 < or = 0.50 mg/dL [facility] Blood Venous blood specimen / Unknown 05/30/2024 8:35 AM EST 05/30/2024 12:05 PM EST Lurdes Lo MD LAB BLOOD ORDERABLES Final Resul t [facility] [address] [place] [phone] * (ABNORMAL) CAROLIN Screen,IFA, with Reflex to Titer and Pattern (05/30/2024 8:35 AM EST) Anti Nuclear Antibody Screen POSITIVE (A) NEGATIVE [facility] Comment:CAROLIN IFA is a first l ine screen for detecting thepresence of up to approximately 150 autoantibodies invarious autoimmune diseases. A positive CAROLIN IFA resultis suggestive of autoimmune disease and reflexes totiter and pattern. Further laboratory testing may beconsidered if clinically indicated.For additional information, please refer [email or web address] Referral Source/faq/HDT485(This link is being provided for informational/educational purposes only.) CAROLIN Titer 1:320(A) titer [facility] Comment:Reference Range <1:4 0 Negative 1:40-1:80 Low Antibody Level >1:80 Elevated Antibody Level CAROLIN Pattern (A) [facility] Comment:Nuclear, Dense Fine Speckled Abnormal Flag: ADense fine speckled pattern is seen in normalindividuals and rarely associated with systemic lupuserythematosis (SLE), Sjogren's syndrome and systemicsclerosis.AC-2: Dense Fine SpeckledInternational Consensus on CAROLIN Patterns(https://doi.org/10.1515/wmei-0915-2121)THIS TEST WAS PERFORMED AT:[facility] [employer] [place] [phone] LOWRY MD CAROLIN TITER 2 (REF LAB) [facility] CAROLIN Pattern 2 [facility] CAROLIN TITER 3 [facility] CAROLIN PATTERN 3 [facility] Blood Venous blood specimen / Unknown 05/30/2024 8:35 AM EST 05/30/2024 12:05 PM EST Lurdes Lo MD LAB BLOOD ORDERABLES Final Resul t Performing Organization Address [facility] Co de Phone Number [facility] [address] [place] [phone] * Hemoglobin A1c (05/30/2024 8:35 AM EST) Hemoglobin A1c 5.3 <6.0 % [facility] Comment:Hemoglobin A1C Refer ence Range Adults: 4.8 - 6.0 % Non diabetic: < 6.0 % Goal: < 7.0 %Additional Action Suggested: > 8.0 %Note: Hemoglobin A1c results are invalid for patients with abnormal amounts of HbF. Blood transfusions may impact the HbA1c concentration in the patient sample. Estimated Average Glucose 105 mg/dL [facility] Comment:eAG = Estimated ave rage glucose which is %A1C expressed asaverage glucose, using the formula of the [id number] Glucose study (ADAG), Diabetes Care, Vol.31,#8,2007 Blood Venous blood specimen / Unknown 05/30/2024 8:35 AM EST 05/30/2024 11:57 AM EST Lurdes Lo MD LAB BLOOD ORDERABLES Final Resul t Performing Organization Address [facility] Co de Phone Number [facility] [address] [place] [phone] * (ABNORMAL) Comprehensive Metabolic Panel (05/30/2024 8:35 AM EST) Sodium 140 135 - 145 mmol/L [facility] Potassium 4.1 3.3 - 5.1 mmol/L [facility] Chloride 106 96 - 108 mmol/L [facility] Carbon Dioxide 30(H) 22 - 29 mmol/L [facility] Anion Gap 8(L) 12 - 20 [facility] Urea Nitrogen (BUN) 8(L) 9 - 16 mg/dL [facility] Creatinine, Serum 0.66 0.5 - 1.4 mg/dL [facility] Estimated Glomerular Filt Rate >60 [facility] Comment:Chronic Kidney Disea se: Estimated GFR < 60 mL/min/[id number] Kidney Disease: Estimated GFR < 15 mL/min/1.73m2 Glucose 98 60 - 115 mg/dL [facility] Calcium 9.8 8.4 - 10.2 mg/dL [facility] Bilirubin, Total 0.4 0.0 - 1.0 mg/dL [facility] Aspartate Amino Transferase 31 5 - 31 U/L [facility] Alanine Aminotransferase 24 0 - 31 U/L [facility] Total Protein 7.3 6.5 - 8.0 g/dL [facility] Albumin Level 4.4 3.5 - 5.0 g/dL [facility] Alkaline Phosphatase 76 39 - 117 U/L [facility] Blood Venous blood specimen / Unknown 05/30/2024 8:35 AM EST 05/30/2024 12:05 PM EST Lurdes Lo MD LAB BLOOD ORDERABLES Final Resul t [facility] [address] [place] [phone] * BI Mammogram Screening Tomosynthesis Bilateral (09/27/2023 12:26 PM EDT) Anatomical Region Laterality Modality Breast Bilateral Mammography 09/27/2023 12:2 6 PM EDT Narrative 10/28/2023 7:07 AM EDT ? [facility] [place] ? [address] [facility] ?[place] [address] ? Mammography Report ? Signed ? Patient: Jones Ever,Leda ?MR# ?? : [id number] ? : 1965 ?Acct:[id number] ? Age/Sex: 58 / F ?ADM Date: 05/21/24 ? Loc: HO.MAMMO ? Attending Dr: Lurdes Lo MD ? Ordering Physician: Lurdes Lo MD ?Results: 1Negative ? Date of Service: 09/27/23 ?Follow Up: 1 Year From Orig ?? inal Mammogram ? Procedure(s): MM tomosynthesis screening BI ?? Accession Number(s): [id number] ? cc: Lurdes Lo MD ? EXAMINATION: [...] 0704 ? DD/ 1226 ? TD/TT: ? 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 Procedure Note Donotlunater, Image - 10/28/2023 [facility] [address] [place] [address] Mammography Report Signed Patient: Leda GudinoMR# : [id number] : 1965Acct:[id number] Age/Sex: 58 / FADM Date: 09/27/23 Loc: VÍCTOR Attending Dr: Lurdes Lo MD Ordering Physician: Lurdes Lo MDResults: 1Negative Date of Service: 09/27/23Follow Up: 1 Year From Orig inal Mammogram Procedure(s): MM tomosynthesis screening BI Accession Number(s): [id number] cc: Lurdes Lo MD EXAMINATION: MM SCREENING [...] in OV> 10/28/23 0704 DD/ 1226 TD/TT: Gymnastic Teacher: us Lurdes Lo MD IMG BI PROCEDURES Final Result * CT Lung Screening Low dose (04/29/2023 10:15 AM EST) Anatomical Region Laterality Modality Lung Computed Tomogra phy 04/29/2023 10:1 5 AM EST Narrative 05/13/2023 2:52 PM EST ? [facility] ?[address] ?[place] [address] ? CT Scan Report ? Signed ? Patient: Leda Gudino ?MR# ?? : [id number] ? : 1965 ?Acct:[id number] ? Age/Sex: 58 / F ?ADM Date: 04/29/23 ? Loc: HO.CT ? Attending Dr: Maxine Matos PA-C ? Ordering Physician: Maxine Matos PA-C ?? Date of Service: 04/29/23 ?? Procedure(s): CT lung screening ?? Accession Number(s): [id number] ? cc: Maxine Matos PA-C; Lurdes Lo [...] by Shanelle Gunderson MD in OV> ? 05/13/23 1449 ? DD/ 1015 ? TD/TT: ? 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
--- NOTE | 2024-06-12 13:50 | PC.NURSE ---
Asked by provider to stop IV azthro d/t QTC, bx stopped, disconnected from patient.
--- NOTE | 2024-06-12 14:11 | PM.IMHP ---
History of Present Illness Date of Service: 06/12/24 Chief Complaint: sob 59F PMH copd/mild intermittent asthma, fibromyalgia, ?SLE, mood disorder, multiple SBOs, presented with shortness of breath. Patient states she has been short of breath for about 3 weeks, worse on exertion. Reports it has been worse over the last few days associated with chest tightness, wheezing not relieved by albuterol, associated with chills myalgias and fever of 101.6. On day of presentation had a bad headache so came to the ED. in ED noted to be hypoxic to 89% on room air and flu positive, chest x-ray with bilateral opacities. EKG noted to have QT prolongation of 689. Review of Systems Review of Systems: Yes all other systems are reviewed and are negative [facility] Medical History Premature menopause History of Helicobacter pylori infection Nicotine dependence, cigarettes, uncomplicated Allergies Asthma Constipation Moderate malnutrition Pulmonary nodules Colitis Acid reflux Vitamin D deficiency Osteoporosis (~2017) Migraines Lupus Osteoarthritis Fibromyalgia Family History Father Fibromyalgia Osteoporosis Mother Stroke Surgical History History of appendectomy (~1982) History of tonsillectomy History of removal of ovarian cyst History of hysterectomy History of resection of small bowel (~2020) History of colonoscopy History of esophagogastroduodenoscopy (EGD) History of elbow surgery (~2010) Social History Household Members: Family Housing: Apartment Do you presently have visiting nurse or other home services: No Alcohol intake: never Comment: Patient sleeping Patient Tobacco Use Status: Current everyday Tobacco user Tobacco use type: Cigarette Cigarette Packs Per Day: 1 Cigarettes Per Day: 20.0 Years Smoked: 23 Smoked in Last 30 Days: Yes Second Hand Smoke Exposure: Yes Use of substances other than those prescribed or required for medical reasons: No Advance Directives: No Advance Directives Information Provided: Yes service: No Current occupational status: disabled 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 Meds Allergies Allergy/AdvReac Type Severity Reaction Status Date / Time acetaminophen [From Tylenol] Allergy Unknown Nausea and Verified 06/12/24 12:11 Vomiting tramadol [TRAMADOL] Allergy Unknown NAUSEA & Verified 11/21/23 13:08 VOMITING Active Medications: Current Medications Lactated Ringer's (Lr) 1,000 mls @ 999 mls/hr IV .Q1H1M ONE Stop: 06/12/24 14:12 Last Admin: 06/12/24 13:25 Dose: 999 mls/hr Potassium Chloride (Potassium Chloride/H20) 10 meq in 100 mls @ 100 mls/hr IV Q1H NASH Stop: 06/12/24 17:14 Last Admin: 06/12/24 13:26 Dose: 100 mls/hr Home Medications ?Medication ?Instructions ?Recorded ?Confirmed ?Last Taken ?Type amitriptyline 25 mg tablet 25 mg PO BEDTIME 04/30/20 10/27/23 Unknown History lidocaine 5 % topical patch 2 patch topical DAILY 04/30/20 10/27/23 Unknown History (Lidoderm) omeprazole 20 mg capsule,delayed 40 mg PO DAILY PRN Acid Reflux 07/16/21 10/27/23 Unknown History release gabapentin 300 mg capsule 300 mg PO TID 12/07/21 10/27/23 08/23/23 History albuterol sulfate 2.5 mg/3 mL 2.5 mg inhalation Q4H PRN Dyspnea 03/14/23 10/27/23 Unknown History (0.083 %) solution for nebulization ondansetron 4 mg disintegrating 4 mg PO Q6H PRN Nausea And Vomiting 08/24/23 10/27/23 Unknown History tablet Physical Exam Vital Signs and Narrative: Vital Signs: Last Vital Signs Temp 98.8 F 06/12/24 12:09 Pulse 98 06/12/24 13:29 Resp 18 06/12/24 13:29 BP 94/40 L 06/12/24 13:29 Pulse Ox 96 06/12/24 13:29 O2 Del Method Nasal Cannula 06/12/24 13:29 O2 Flow Rate 2 06/12/24 13:29 BMI result Body Mass Index 23.6 General: AO X 3, no acute distress Resp: Rhonchi bilateral, no accessory muscles used CVS: S1,S2,RRR GI: soft, non tender, non distended Neuro: motor grossly intact, alert Psych: appropriate affect, appropriate insight Results Labs 06/12/24 12:36 06/12/24 12:36 Labs: Laboratory Results - last 24 hr 06/12/24 06/12/24 06/12/24 12:36 12:37 12:41 MCV 94.9 MCH 32.5 MCHC 34.3 RDW 13.6 Plt Count 197 D MPV 9.6 Immature Gran % (Auto) 0.5 H Neut % (Auto) 62.2 Lymph % (Auto) 23.6 [place] % (Auto) 12.8 H Eos % (Auto) 0.2 Baso % (Auto) 0.7 Lymph # (Auto) 1.0 L [place] # (Auto) 0.6 Eos # (Auto) 0.0 Baso # (Auto) 0.0 Abs Immat Gran (auto) 0.02 Absolute Neuts (auto) 2.7 Absolute Nucleated RBC 0.000 Nucleated RBC % (auto) 0.0 VBG pH 7.34 VBG pCO2 51 VBG pO2 33 VBG HCO3 28 H VBG O2 Saturation 51.0 VBG Base Excess 1.5 Anion Gap 21 H Estim Creat Clear Calc 59.8 Estimated GFR > 60 Random Glucose 148 H Lactic Acid 4.5 H* Calcium 8.7 D Magnesium 1.9 Total Bilirubin 0.3 Direct Bilirubin 0.1 AST 50 H ALT 36 H Alkaline Phosphatase 66 Troponin I High Sens < 2.7 B-Natriuretic Peptide 48 Total Protein 7.2 Albumin 4.0 Lipase 7 L Influenza Type A (PCR) POSITIVE A Influenza Type B (PCR) NEGATIVE RSV RNA Qual (PCR) NEGATIVE SARS-CoV-2 RNA (RT-PCR) NEGATIVE Imaging Radiologist's Impressions: Impressions Chest X-Ray 06/12/24 12:15 IMPRESSION: Chronic interstitial lung disease. Electronically signed by: James Sánchez MD 06/12/2024 12:27 PM [facility] [place] Assessment and Plan (1) Prolonged QT interval: Status: Acute Plan 59F PMH copd/mild intermittent asthma, fibromyalgia, ?SLE, mood disorder, multiple SBOs, presented with shortness of breath Viral sepsis and acute hypoxic respiratory failure secondary to flu complicated by mild intermittent asthma/COPD with acute decompensation IV Solu-Medrol, DuoNebs Wean O2 as tolerated Chest x-ray with question of interstitial lung disease, patient with positive CAROLIN, unaware of any diagnosis of autoimmune disease, will check CT chest QT prolongation Replace acute hypomagnesemia and hypokalemia and monitor Monitor on telemetry Avoid QT prolonging medications Mood disorder, fibromyalgia Holding QT prolonging meds DVT prophylaxis with Lovenox Full Code Given hypoxia and QT prolongation expected require at least 2 midnights inpatient Quality Stroke Does the patient have a stroke diagnosis?: No VTE Prior VTE?: No VTE Risk Level:: Medical - moderate - high VTE Device Contraindication: Treatment Not Indicated VTE Drug Contraindication: N/A - Med Ordered
[2024-06-12] MEDS: Oseltamivir Phosphate 75 MG CAPSULE PO (14:22)
--- NOTE | 2024-06-12 14:34 | PC.NURSE ---
Pt presented to ED via EMS from walk in clinic. Reporting since Tuesday: cough, general malaise, wheezing/ SOB. Has hx of COPD and asthma, no baseline O2. EMS gave duo nebsX3 and 125 mg of Solu-medrol. Pt noted to be tachypnic and 88% on RA, improves on 2L O2 NC or breathing rx. Alert and oriented, skin warm. Lung sounds wheezing. Pain in her back and with coughing. Sepsis protocol called and followed.
--- NOTE | 2024-06-12 14:38 | PC.NURSE ---
Provider alerted of Low BPs as found. Fluids infusing and orders followed
[2024-06-12 14:43] LABS: Reflex Lactate? Lactic Acid Added
--- NOTE | 2024-06-12 14:59 | PHA.MEDREC ---
Addendum entered by Doyle Lopez 06/12/24 15:01: reviewed Original Note: Pharmacy Consult ? Medication Reconciliation Pharmacy has completed the medication reconciliation. Utilized list from Md office faxed to use by nursing.
[2024-06-12] MEDS: 0.9 % Sodium Chloride Flush 3 ML SYRINGE IVFLUSH ×2 (15:19→22:32)
--- NOTE | 2024-06-12 15:22 | PC.NURSE ---
Azithro was stopped and wasted per MD order, MAR reflects
[2024-06-12 15:47] LABS: ~Lactic Acid-LAB USE ONLY 4.8 mmol/L (0.5-2.0)
[2024-06-12 17:02] LABS: Reflex Lactate? 2 Y
[2024-06-12 17:52] LABS: ~Lactic Acid-LAB USE ONLY 4.3 mmol/L (0.5-2.0)
[2024-06-12 18:05] LABS: Cancel Lactic Acid Canceled
[2024-06-12] MEDS: Ibuprofen 600 MG TABLET PO (22:32)
--- NOTE | 2024-06-13 | ECG_ITS ---
Test Reason : QTc prolongation Blood Pressure : */* mmHG Vent. Rate : 56 BPM Atrial Rate : 56 BPM P-R Int : 174 ms QRS Dur : 78 ms QT Int : 432 ms P-R-T Axes : 45 79 45 degrees QTcB Int : 416 ms Sinus bradycardia Otherwise normal ECG When compared with ECG of 12-Jun-2024 12:55, Sinus rhythm has replaced Junctional rhythm Vent. rate has decreased by [address] no longer depressed in Inferior leads QT has shortened Referred By: Sameer Diamond Electronically Signed By: Pedro Cabrera
[2024-06-13 04:00] VITALS: BP 132/60; PULSE 50; RESP 16; TEMP 36; O2SAT 99
[2024-06-13 06:59] VITALS: BP 116/56; PULSE 61; RESP 18; TEMP 36.8; O2SAT 95
[2024-06-13 07:57] LABS: Hematocrit 35.6 % (37.0-47.0); Hemoglobin 12.5 g/dl (12.0-16.0); Mean Corpuscular HGB Conc 35.1 g/dl (31.0-35.0); Mean Corpuscular Hemoglobin 33.2 pg (27.0-33.0); Mean Corpuscular Volume 94.7 fL (80.0-98.0); Mean Platelet Volume 9.6 fL (9.4-12.3); Platelet Count 226 X10*3/uL (160-400); Red Blood Count 3.76 X10*6/uL (4.20-5.50); Red Cell Distribution Width 13.7 % (11.0-16.0); White Blood Count 7.5 X10*3/uL (4.8-10.8)
[2024-06-13] MEDS: Fluticasone/Vilanterol 200/25 BLST.W.DEV 1 PUFF INHALE (08:02)
[2024-06-13 08:04] VITALS: PULSE 72; RESP 18; O2SAT 98
[2024-06-13 08:19] LABS: Anion Gap 10 (12-20); Blood Urea Nitrogen 14 mg/dL (9-16); Calcium 8.8 mg/dL (8.4-10.2); Carbon Dioxide 27 mmol/L (22-29); Chloride 110 mmol/L (96-108); Creatinine Clr Calc Pharmacy 73.2; Estimated Glomerular Filt Rate > 60; Glucose Random 94 mg/dL (60-115); Magnesium 2.3 mg/dL (1.6-2.6); Potassium 4.8 mmol/L (3.3-5.1); Sodium 142 mmol/L (135-145)
--- NOTE | 2024-06-13 09:11 | MHC.CM.PN ---
Pt lives with dtr and gr dtr., She has a nurse that comes daily to give her medication. She is in the process of getting [employer] hours, does not currently have any. for DME, she uses a cane and nebulizer. HCP form to be completed here and added to chart. PCP confirmed: Dr. Lo. Dtr to transport home at DC. DCP: home, resume nursing care. CM to follow for DC needs.
[2024-06-13 10:57] VITALS: BP 102/54; PULSE 64; RESP 18; TEMP 36.1; O2SAT 93
[2024-06-13] MEDS: Enoxaparin Sodium 40 MG/0.4 ML SYRINGE SUBCUT (11:24)
[2024-06-13] MEDS: Cholecalciferol (Vitamin D3) 25 MCG TABLET 50 MCG PO (11:24)
[2024-06-13] MEDS: Montelukast Sodium 10 MG TABLET PO (11:24)
[2024-06-13] MEDS: Oseltamivir Phosphate 75 MG CAPSULE PO ×2 (11:24→20:07)
[2024-06-13] MEDS: 0.9 % Sodium Chloride Flush 3 ML SYRINGE IVFLUSH ×2 (11:25→20:07)
[2024-06-13] MEDS: methylPREDNISolone Sod Succ 40 MG/ML VIAL IVPUSH ×2 (11:25→20:06)
--- NOTE | 2024-06-13 13:45 | P.PNIM_ITS ---
Subjective Subjective Date of Service: 06/13/24 Interval History: seen and evaluated feels better having dyspnea on exertion no other events Review of Systems Review of Systems: Yes all other systems are reviewed and are negative Physical Exam 2 Vital Signs: Vital Signs: Last Vital Signs Temp 97.0 F 06/13/24 10:57 Pulse 64 06/13/24 10:57 Resp 18 06/13/24 10:57 BP 102/54 L 06/13/24 10:57 Pulse Ox 93 06/13/24 10:57 O2 Del Method Room Air 06/13/24 10:57 O2 Flow Rate 2 06/12/24 15:21 BMI result Body Mass Index 23.6 Const: Other: Constitutional : Awake, interactive, not in distress Neck : Normal inspection, Supple Cardiovascular : RRR, no JVP, no lower extremity edema Respiratory : decreased bilateral air entry, no crackles, biilateral expiratory wheezes on room air Gastrointestinal: soft, lax, Normal bowel sounds, Non tender Skin : Warm, Dry Neurological : Alert & oriented x3, No focal deficit Objective Data Active Medications Acetaminophen (Acetaminophen 325 Mg Tablet) 650 mg PO Q6H PRN PRN Reason: Pain, Mild 1-3,fever,headache Albuterol/Ipratropium (Albuterol/Iprat 2.5/0.5mg 3 Ml Ampul.Neb) 3 ml INHALE RQ4H WHILE AWAKE PRN PRN Reason: sob Calcium Carbonate (Calcium Carbonate 750 Mg Tab.Chew) 750 mg PO Q4H PRN PRN Reason: Heartburn Enoxaparin Sodium (Enoxaparin Sodium 40 Mg/0.4 Ml Syringe) 40 mg SUBCUT Q24H [facility] Last Admin: 06/13/24 11:24 Dose: 40 mg Documented By: MARIUSZ Fluticasone/Vilanterol (Fluticasone/Vilanterol 200/25 Blst.W.Dev) 1 puff INHALE DAILY [facility] Last Admin: 06/13/24 08:02 Dose: 1 puff Documented By: ZEN Ibuprofen (Ibuprofen 600 Mg Tablet) 600 mg PO Q8H PRN PRN Reason: Pain, Moderate(Pain Scale 4-6) Last Admin: 06/12/24 22:32 Dose: 600 mg Documented By: CHRISTA Magnesium Hydroxide (Milk Of Magnesia 30 Ml Oral.Susp) 30 ml PO DAILY PRN PRN Reason: Constipation Melatonin (Melatonin 3 Mg Tablet) 6 mg PO BEDTIME PRN PRN Reason: Insomnia Methylprednisolone Sodium Succinate (Methylprednisolone Sod Succ 40 Mg/Ml Vial) 40 mg IVPUSH Q12H [facility] Last Admin: 06/13/24 11:25 Dose: 40 mg Documented By: MARIUSZ Montelukast Sodium (Montelukast Sodium 10 Mg Tablet) 10 mg PO DAILY [facility] Last Admin: 06/13/24 11:24 Dose: 10 mg Documented By: MARIUSZ Oseltamivir Phosphate (Oseltamivir Phosphate 75 Mg Capsule) 75 mg PO Q12H [facility] Stop: 06/17/24 21:01 Last Admin: 06/13/24 11:24 Dose: 75 mg Documented By: MARIUSZ Sodium Chloride (0.9 % Sodium Chloride Flush 3 Ml Syringe) 3 ml IVFLUSH QSHIFT [facility] Last Admin: 06/13/24 11:25 Dose: 3 ml Documented By: MARIUSZ Vitamin D (Cholecalciferol (Vitamin D3) 25 Mcg Tablet) 50 mcg PO DAILY [facility] Last Admin: 06/13/24 11:24 Dose: 50 mcg Documented By: MARIUSZ Labs 06/13/24 07:41 06/13/24 07:41 Labs: Laboratory Results - last 24 hr 06/12/24 06/12/24 06/13/24 14:59 17:23 07:41 MCV 94.7 MCH 33.2 H MCHC 35.1 H RDW 13.7 Plt Count 226 MPV 9.6 Absolute Nucleated RBC 0.000 Nucleated RBC % (auto) 0.0 Anion Gap 10 L Estim Creat Clear Calc 73.2 Estimated GFR > 60 Random Glucose 94 Lactic Acid F/U @ 2Hr 4.8 H* Lactic Acid F/U @ 4Hr 4.3 H* Calcium 8.8 Magnesium 2.3 Assessment and Plan (1) Hypoxia: Status: Acute (2) Prolonged QT interval: Status: Acute (3) Influenza A: Status: Acute (4) Emphysema lung: Status: Acute Plan 59F PMH copd/mild intermittent asthma, fibromyalgia, ?SLE, mood disorder, multiple SBOs, presented with shortness of breath Viral sepsis and acute hypoxic respiratory failure secondary to flu complicated by mild intermittent asthma/COPD with acute decompensation Wean O2 as tolerated Chest x-ray with question of interstitial lung disease, patient with positive CAROLIN CT chest showing emphysema with scattered nodules IV Solu-Medrol, DuoNebs QT prolongation Replaced acute hypomagnesemia and hypokalemia and monitor Monitor on telemetry QTc corrected to 416 Mood disorder, fibromyalgia Holding QT prolonging meds DVT prophylaxis with Lovenox Full Code Given hypoxia and QT prolongation expected require overnight inpatient stay Quality Stroke Does the patient have a stroke diagnosis?: No VTE Prior VTE?: No VTE Risk Level:: Medical - moderate - high VTE Device Contraindication: Treatment Not Indicated VTE Drug Contraindication: N/A - Med Ordered
[2024-06-13 15:19] VITALS: BP 98/52; PULSE 68; RESP 20; TEMP 35.9; O2SAT 91
[2024-06-13 19:42] VITALS: BP 124/68; PULSE 67; RESP 21; TEMP 35.9; O2SAT 95
[2024-06-14] VITALS: BP 115/53; PULSE 50; RESP 20; TEMP 36.3; O2SAT 94
[2024-06-14 04:00] VITALS: BP 114/68; PULSE 54; RESP 18; TEMP 36.3; O2SAT 94
[2024-06-14 07:29] VITALS: BP 132/62; PULSE 52; RESP 20; TEMP 36.3; O2SAT 96
[2024-06-14] MEDS: Fluticasone/Vilanterol 200/25 BLST.W.DEV 1 PUFF INHALE (08:15)
[2024-06-14 08:17] VITALS: PULSE 76; RESP 18; O2SAT 93
[2024-06-14] MEDS: methylPREDNISolone Sod Succ 40 MG/ML VIAL IVPUSH (09:36)
[2024-06-14] MEDS: Enoxaparin Sodium 40 MG/0.4 ML SYRINGE SUBCUT (09:36)
[2024-06-14] MEDS: Montelukast Sodium 10 MG TABLET PO (09:36)
[2024-06-14] MEDS: Oseltamivir Phosphate 75 MG CAPSULE PO (09:36)
[2024-06-14] MEDS: Cholecalciferol (Vitamin D3) 25 MCG TABLET 50 MCG PO (09:36)
[2024-06-14] MEDS: 0.9 % Sodium Chloride Flush 3 ML SYRINGE IVFLUSH (09:37)
--- NOTE | 2024-06-14 10:57 | P.DS_ITS ---
DS: Providers Provider Date of Service: 06/14/24 Date of admission: 06/12/24 14:10 Date of discharge: 06/14/24 Primary care physician: Lurdes Lo MD DS: Diagnosis Discharge Diagnosis (1) Hypoxia: Status: Acute (2) Prolonged QT interval: Status: Acute (3) Influenza A: Status: Acute (4) Emphysema lung: Status: Acute DS: Summary Hospital Course Hospital Course: Admission note HPI 59F PMH copd/mild intermittent asthma, fibromyalgia, ?SLE, mood disorder, multiple SBOs, presented with shortness of breath. Patient states she has been short of breath for about 3 weeks, worse on exertion. Reports it has been worse over the last few days associated with chest tightness, wheezing not relieved by albuterol, associated with chills myalgias and fever of 101.6. On day of presentation had a bad headache so came to the ED. in ED noted to be hypoxic to 89% on room air and flu positive, chest x-ray with bilateral opacities. EKG noted to have QT prolongation of 689. Hospital course The patient was treated for Viral sepsis and acute hypoxic respiratory failure secondary to flu complicated by mild intermittent asthma/COPD with acute decompensation. Chest x-ray with question of interstitial lung disease, patient with positive CAROLIN that will need further work up as outpatient with PCP. CT chest showing emphysema with scattered nodules. She was treated with Tamiflu, IV Solu-Medrol, DuoNebs bronchodilators around the clock and as needed with good response as she was weaned off O2 supplement and was able to ambulate on room air with no reported dyspnea. She was noticed to have QT prolongation at presentation. Replaced hypomagnesemia to >2 and hypokalemia to >4 and monitored on telemetry with no events as QTc corrected to 416. She will be discharged home on Prednisone and Tamiflu. Discharge plan Use your home rescue inhaler 3-4 times for the next 3 days then as needed Continue Prednisone for 5 more days Continue Tamiflu for 7 more doses Continue the rest of home medications Keep yourself well hydrated Time Attestation Discharge Coordination Time (in mins): 38 Quality: Safe Use of Opioids Does Pt have an Active Cancer Diagnosis on the Problem List?: No Quality: Stroke Does the patient have a stroke diagnosis?: No Physical Exam Vital Signs: Vital Signs: Last Vital Signs Temp 97.4 F 06/14/24 07:29 Pulse 76 06/14/24 08:17 Resp 18 06/14/24 08:17 BP 132/62 06/14/24 07:29 Pulse Ox 96 06/14/24 07:29 O2 Del Method Room Air 06/14/24 07:29 O2 Flow Rate 2 06/12/24 15:21 BMI result Body Mass Index 23.6 Const: Other: Constitutional : Awake, interactive, not in distress Neck : Normal inspection, Supple Cardiovascular : RRR, no JVP, no lower extremity edema Respiratory : improved bilateral air entry, no crackles, no wheezing Gastrointestinal: soft, lax, Normal bowel sounds, Non tender Skin : Warm, Dry Neurological : Alert & oriented x3, No focal deficit DS: Data Data Completed and Pending Completed studies during hospitalization [Text1]: Procedures Excision of Jejunum, Open Approach (03/22/21) Release Peritoneum, Open Approach (03/22/21) Release Small Intestine, Open Approach (03/22/21) Labs on day of discharge: Preliminary micro results at discharge 06/12/24 12:36 Blood Culture - Preliminary Blood - Venous No growth after 24 hours. 06/12/24 12:36 Blood Culture - Preliminary Blood - Venous No growth after 24 hours. Imaging Chest x-ray: Radiologist's impression: ITS Impressions Chest X-Ray 06/12/24 12:15 IMPRESSION: Chronic interstitial lung disease. Electronically signed by: James Sánchez MD 06/12/2024 12:27 PM EST RP Chest CT 06/12/24 16:06 IMPRESSION: Centrilobular emphysema with scattered pulmonary nodules as described above. There is minimal bibasilar pleural thickening and bibasilar and right upper lobe atelectasis. Focal opacity right upper lobe is likely related to emphysema or atelectasis. Fleischner guidelines were followed. Electronically signed by: Cirilo Quezada MD 06/12/2024 04:58 PM EST RP Discharge Plan Discharge Anticipated Discharge Date/Time: 06/14/24 10:49 Patient Disposition: Home, Self-Care Discharge Diagnosis: Influenza A, COPD exacerbation Referrals: Lurdes Lo MD [Primary Care Provider] - 1 Week Discharge Medications: New oseltamivir [Tamiflu] 75 mg Capsule 75 mg PO Q12H Qty: 7 0RF prednisone 20 mg tablet 40 mg PO DAILY Qty: 10 0RF Continued fluticasone furoate-vilanterol [Breo Ellipta] 200-25 mcg/dose blister with device 1 inh inhalation DAILY 30 Days Qty: 60 11RF albuterol sulfate 2.5 mg /3 mL (0.083 %) Solution For Nebulization 2.5 mg INHALATION Q4H PRN (Reason: Dyspnea) sennosides [senna] 8.6 mg Tablet 17.2 mg PO BID PRN (Reason: Constipation) gabapentin 400 mg capsule 400 mg PO TID dicyclomine 20 mg tablet 20 mg PO QD-QID PRN (Reason: gas) lidocaine 5 % adhesive patch,medicated 3 patch topical DAILY PRN (Reason: Pain) Rx Instructions: APPLY 3 PATCHES TOPICALLY TO SKIN, LEAVE ON FOR 12 HOURS AND OFF FOR 12 HOURS DIRECTED docusate sodium 100 mg Capsule 200 mg PO DAILY PRN (Reason: Constipation) montelukast 10 mg tablet 10 mg PO DAILY ibuprofen 600 mg tablet 600 mg PO Q6H PRN (Reason: pain) Rx Instructions: TAKE 1 TABLET BY MOUTH EVERY 6 HOURS NEEDED FOR PAIN, NO JASON EVERY DAY FOR MORE THAN 2 WEEKS fluticasone propionate 50 mcg/actuation spray,suspension 1 spray intranasal DAILY duloxetine 20 mg capsule,delayed release(DR/EC) 20 mg PO DAILY chlorhexidine gluconate 0.12 % mouthwash 15 ml BID diclofenac sodium 1 % gel 2 g topical QD-BID PRN (Reason: pain) cholecalciferol (vitamin D3) [Vitamin D3] 50 mcg (2,000 unit) Tablet 50 mcg PO DAILY Incruse Ellipta 62.5 mcg/actuation blister with device 1 inh INHALATION DAILY ondansetron 4 mg Tablet,Disintegrating 4 mg PO Q6H PRN (Reason: Nausea And Vomiting) amitriptyline 25 mg tablet 25 mg PO BEDTIME omeprazole 20 mg capsule,delayed release(DR/EC) 40 mg PO DAILY@0630 Discharge Orders: Discharge Order (Routine); Ordered 06/14/24 Ordered By: Sameer Diamond Diet: Advance to usual diet Activity on Discharge: As tolerated Stand Alone Forms: Patient Portal Discharge page Print Language: South Sudanese Care Plan Goals: Use your home rescue inhaler 3-4 times for the next 3 days then as needed Continue Prednisone for 5 more days Continue Tamiflu for 7 more doses Continue the rest of home medications Keep yourself well hydrated Health Concerns: Infleunza Plan of Treatment: Tamiflu Steroids Assessment: as above
--- NOTE | 2024-06-14 11:01 | MHC.CM.PN ---
Pt has been medically cleared for DC, she will go home via family transport, plan is self care.
--- NOTE | 2024-06-15 12:17 | P.CDIM_ITS ---
PROVIDER RESPONSE TEXT: To clarify, the appropriate diagnosis supported by the clinical indicators: Acute QUERY TEXT: PHYSICIAN'S DOCUMENTATION REQUEST Date of Query: 06/14/2024 08:42 AM EST Patient Name: Leda Gudino Admit Date: 06/12/2024 Dear Sameer Diamond MD, A review of the medical record indicates additional documentation may be needed. Please review below and update the documentation accordingly. Clinical Indicators: ED 2/5 - Clinical impression - lactic acidosis LA 4.8 Clarify which of the following accurately represents the acuity of the Lactic acidosis, if agree: Possible options might include: Acute Chronic Other (explain) Clinically unable to determine (explain) Thank you, Little Adam, CCS, CDIS Use of terms such as suspected, likely, concern for, or probable (associated with a specific diagnosi s that is being evaluated, monitored, or treated as if it exists) are acceptable and can be coded in the inpatient se tting, when documented at the time of discharge. Please use your independent medical judgment in providing your response. THIS QUERY IS PART OF THE PERMANENT MEDICAL RECORD
--- NOTE | 2024-06-15 12:17 | P.CDIM_ITS ---
PROVIDER RESPONSE TEXT: To clarify, the appropriate diagnosis supported by the clinical indicators: Influenza: A QUERY TEXT: PHYSICIAN'S DOCUMENTATION REQUEST Date of Query: 06/14/2024 10:06 AM EST Patient Name: Leda Gudino Admit Date: 06/12/2024 Dear Sameer Diamond MD, A review of the medical record indicates additional documentation may be needed. Please review below and update the documentation accordingly. Clinical Indicators: Serology 2/ - Influenza A+ Progress notes within the written Plan: Viral sepsis and acute hypoxic respiratory failure secondary to flu complicated by asthma/COPD. Chest tightness, wheezing, chills, myalgias and fever of 101.6. Flu positive, chest x-ray with bilate ral opacities. Based on the above, possible to further clarify the diagnosis of Flu that is documented within the sc dical record into the written plan of your progress note: Flu Akash, bird, etc Influenza A, B ,other specifics Other (explain) Clinically unable to determine (explain) Thank you, Little Adam, CCS, CDIS Use of terms such as suspected, likely, concern for, or probable (associated with a specific diagnosi s that is being evaluated, monitored, or treated as if it exists) are acceptable and can be coded in the inpatient se tting, when documented at the time of discharge. Please use your independent medical judgment in providing your response. THIS QUERY IS PART OF THE PERMANENT MEDICAL RECORD
== END 2024-06-14 12:00 | disposition home or self-care (01) | DRG 720 ==
LOC: HO.ED 13:38 → HO.EDOVER 14:19 → HO.IMC 14:57
PROVIDERS: Admitting Provider Internal Medicine; Emergency Provider Emergency Medicine; PCP Family Medicine; Visit Provider Student in an Organized Health Care Education/Training Program
DX: A41.89 Other specified sepsis (principal); J96.01 Acute respiratory failure with hypoxia; E87.21 Acute metabolic acidosis; J45.21 Mild intermittent asthma with (acute) exacerbation; J43.9 Emphysema, unspecified; J10.1 Influenza due to other identified influenza virus with other respiratory manifestations; M32.9 Systemic lupus erythematosus, unspecified; E83.42 Hypomagnesemia; E87.6 Hypokalemia; M79.7 Fibromyalgia; F39 Unspecified mood [affective] disorder; Z79.51 Long term (current) use of inhaled steroids; Z79.899 Other long term (current) drug therapy
CPT/HCPCS: 0241U; 36415; 71045; 71250; 80048; 80076; 82803; 83605; 83690; 83735; 83880; 84484; 85025; 85027; 87040; 93005; 94640; 99285; J0456; J0696; J1650; J2919; J3010; J3475; J3480; J7120

== ENCOUNTER → 2024-06-12 12:09 | Outpatient (BNV) | payer MEDICAID, SELFPAY | PROVIDERS: Emergency Provider Emergency Medicine; Visit Provider Radiology Diagnostic Radiology | DX: J43.2 Centrilobular emphysema (principal); R91.1 Solitary pulmonary nodule; J84.9 Interstitial pulmonary disease, unspecified | CPT/HCPCS: 71045; 71250 ==

== ENCOUNTER → 2024-06-12 12:28 | Outpatient (BNV) | payer MEDICAID, SELFPAY | PROVIDERS: Admitting Provider Internal Medicine; Emergency Provider Emergency Medicine; PCP Family Medicine; Visit Provider Internal Medicine Cardiovascular Disease | DX: R94.31 Abnormal electrocardiogram [ECG] [EKG] (principal); R06.00 Dyspnea, unspecified | CPT/HCPCS: 93010 ==

== ENCOUNTER → 2024-06-12 13:36 | Outpatient (BNV) | payer MEDICAID, SELFPAY | PROVIDERS: Emergency Provider Emergency Medicine; PCP Family Medicine; Visit Provider Internal Medicine | DX: J96.01 Acute respiratory failure with hypoxia (principal); R94.31 Abnormal electrocardiogram [ECG] [EKG]; J10.1 Influenza due to other identified influenza virus with other respiratory manifestations; J43.9 Emphysema, unspecified | CPT/HCPCS: 99222; 99232; 99239 ==

== ENCOUNTER 2024-06-12 14:10 | Outpatient (BNV) | payer MEDICAID, SELFPAY | END 2024-06-13 08:32 | PROVIDERS: Admitting Provider Internal Medicine; Emergency Provider Emergency Medicine; PCP Family Medicine; Visit Provider Internal Medicine Cardiovascular Disease | DX: R00.1 Bradycardia, unspecified (principal) | CPT/HCPCS: 93010 ==

== ENCOUNTER 2024-07-03 10:51 | Outpatient (REF) | payer MEDICAID, SELFPAY ==
[2024-07-03 11:34] LABS: MANUAL DIFF FLAG NO
[2024-07-03 11:53] LABS: Basophils Percent Auto 0.6 % (0-2); Eosinophils Absolute Auto 0.1 X10*3/uL (0.0-0.4); Eosinophils Percent Auto 2.1 % (0-4); Hematocrit 38.2 % (37.0-47.0); Hemoglobin 12.6 g/dl (12.0-16.0); Imm Gran Abs Auto 0.01 X10*3/uL (0.00-0.03); Imm Gran Pct Auto 0.2 % (0.0-0.4); Lymphocytes Absolute Auto 1.8 X10*3/uL (1.2-4.9); Lymphocytes Percent Auto 29.1 % (20-40); Mean Corpuscular Hemoglobin 32.1 pg (27.0-33.0); Mean Corpuscular Volume 97.4 fL (80.0-98.0); Mean Platelet Volume 10.5 fL (9.4-12.3); Monocytes Absolute Auto 0.6 X10*3/uL (0.1-1.2); Monocytes Percent Auto 8.8 % (2-11); Neutrophils Absolute Auto 3.7 x10*3/uL (2.0-8.3); Neutrophils Percent Auto 59.2 % (45-73); Platelet Count 246 X10*3/uL (160-400); Red Blood Count 3.92 X10*6/uL (4.20-5.50); Red Cell Distribution Width 14.2 % (11.0-16.0); White Blood Count 6.3 X10*3/uL (4.8-10.8)
[2024-07-03 12:05] LABS: Estimated Average Glucose 108 mg/dL; Hemoglobin A1C 117.9919 umol/L; Hemoglobin A1c % 5.4 % (<6.0)
[2024-07-03 12:45] LABS: Alanine Aminotransferase 78 U/L (0-31); Alkaline Phosphatase 132 U/L (39-117); Anion Gap 11 (12-20); Aspartate Amino Transferase 43 U/L (5-31); Bilirubin Total 0.4 mg/dL (0.0-1.0); Blood Urea Nitrogen 10 mg/dL (9-16); Calcium 9.5 mg/dL (8.4-10.2); Carbon Dioxide 29 mmol/L (22-29); Chloride 106 mmol/L (96-108); Cholesterol 241 mg/dL (<200); Estimated Glomerular Filt Rate > 60; Glucose Random 86 mg/dL (60-115); HDL Cholesterol 86 mg/dL (>40); HIV AB/AG Nonreactive (Nonreactive); HIV Num 1 0.05 S/CO (0.00-0.99); LDL Cholesterol Calculated 138 mg/dL (<100); Magnesium 2.1 mg/dL (1.6-2.6); Potassium 4.1 mmol/L (3.3-5.1); Sodium 142 mmol/L (135-145); Total Protein 7.3 g/dL (6.5-8.0); Triglycerides 88 mg/dL (<150); ~HepC Num1 0.15 S/CO (0.00-0.79); ~Hepatitis C Antibody Nonreactive (Nonreactive)
[2024-07-03 12:56] LABS: Reflex LDLD? No
--- OUTSIDE RECORDS SUMMARY | 2024-07-03 13:08 | XMS_ITS | Encounter Summary ---
Author Organization [employer] Address [address] [place] [address] Care Team Providers Care Carriage Dogger Name Role Phone Lurdes Lo MD Primary Care Provider [phone] Ahmet Lombardo PharmD Unavailable [phone] Reason for Visit * Reason Comments Med Refill Encounter Details Date Type Department Care Team (Late st Contact Info) Description 12/01/2023 Refill [facility] MEDICINE [address] [place], [place] [phone] Lurdes Lo MD [address] [place], [place] [phone] Paresthesia of lower extremity Social History Tobacco [...] Care Team (Late st Contact Info) Description 07/18/2024 3:00 PM EDT Office Visit [facility] ADULT DENTAL [address] [place] [phone] Jayashree Kellogg DDS [address] [place] [address] 07/24/2024 9:15 AM EDT Procedure Visit [facility] MEDICINE [address] [place] [address] Makayla Knott MD [address] [place] [address] documented as of this encounter Goals Goal [...] documented as of this encounter Care Teams Carriage Dogger Relationship Specialty Start Date End Date Lurdes Lo MD [address] [place] [address] PCP - General Family Medicine 08/09/22 Ahmet Lombardo, StellaD [address] [place] [address] Pharmacist Internal Medicine 09/03/22 Deepti Boo Paper Goods Machine Set Up OperatorSalesperson Corsets 06/13/23 Home Care [facility] 03/05/24 documented as of this encounter
--- OUTSIDE RECORDS SUMMARY | 2024-07-03 13:08 | XMS_ITS | Encounter Summary ---
Author Organization [employer] Address [address] [facility] [address] [place] [address] Care Team Providers Care Spider Assembler Name Role Phone Lurdes Lo MD Primary Care Provider [phone] Ahmet Lombardo PharmD Unavailable [phone] Reason for Referral * Consultation (Routine) - Authorized Specialty Diagnoses / Procedures Referred By Contac t Referred To Contact Rheumatology Diagnoses Polyarthralgia Elevated antinuclear antibody (CAROLIN) level Rheumatoid factor positive with cyclic citrullinated peptide (CCP) antibody negative Lurdes Lo MD [address] [place] [address] Phone: tel: fax: [facility] [address] [place] [address] Phone: tel: fax: Referral ID Status Reason Start Date Expiration Date Visits Requested Visits Authorized [id number] Authorized Specialty Services Required 06/07/2024 06/07/2025 12 12 Encounter Details Date Type Department Care Team (Late st Contact Info) Description 06/07/2024 Orders Only [facility] MEDICINE [address] [place], [place] [phone] Lurdes Lo MD [address] [place], [place] [phone] Polyarthralgia (Primary Dx); Elevated antinuclear antibody (CAROLIN) [...] Description 07/18/2024 3:00 PM EDT Office Visit [facility] ADULT DENTAL [address] [place] [address] Jayashree Kellogg DDS [address] [place] [address] 07/24/2024 9:15 AM EDT Procedure Visit [facility] [address] [facility] [place] [address] Makayla Knott MD [address] [facility] [place] [address] Scheduled Referrals Name Type Priority Associated Diagnoses [...] Lombardo, PharmD documented as of this encounter Procedures Procedure Name Priority Date/Time Associated Diagnosis Comments CT CHEST WO CONTRAST Routine 06/12/2024 4:06 PM EST documented in this encounter Results * CT Chest w/o Contrast (06/12/2024 4:06 PM EST) Anatomical Region Laterality Modality Body, Chest Computed Tomogra phy 06/12/2024 4:06 PM EST Narrative 06/12/2024 5:01 PM EST ? [facility] ?[address] ?[place]dom[place] [address] ? [address] Scan Report ? Signed ? Patient: Robert Curtis,Leda ?MR# ?? : [id number] ? : 1965 ?Acct:[id number] ? Age/Sex: 59 / F ?ADM Date: 06/12/ ? Loc: [facility] ?476-1 ? Attending Dr: Augustin Urbina MD ? Ordering Physician: Augustin Urbina MD ?? Date of Service: 06/12/24 ?? Procedure(s): CT chest wo IV con ?? Accession Number(s): [id number] ? cc: Augustin Urbina MD; Lurdes Lo MD ? Report Number: ?? [id number]: Total DLP = ??149.00 mGy-cm ?? EXAMINATION: ?? CT CHEST WITHOUT CONTRAST ? CLINICAL INFORMATION: ?? Bilateral crackles ? COMPARISON: ?? None available. ? TECHNIQUE: ?? Multidetector volumetric CT imaging of the chest was done. Axial MIP ?? volume rendering provided. Sagittal and coronal reformatted images were ?? obtained. ? This CT examination was performed using dose optimization techniques as ?? appropriate, variously including the following: ?? *Automated exposure control ?? *Adjustment of mA and/or kV according to patient size (this includes ?? techniques or standardized protocols for targeted exams where dose is ?? matched to indication/reason for exam; i.e. extremities or head) ?? *Use of iterative reconstruction technique ?? DLP: 149 mGy/cm. ? FINDINGS: ? SAMPLE HAND: Hyperinflated lungs. ? LUNGS: There is mild centrilobular emphysema category micronodules ?? throughout both lungs. ?? Two 4 mm nodules are seen in the right middle lobe laterally on axial ?? image 85/4 and 5 mm nodule right lower lobe adjacent to major fissure ?? axial image 86/4. There is patchy parenchymal opacities in the right ?? upper lobe apical posterior segment image 98/6, focal atelectatic ?? changes in both lung bases and lingula and bilateral apical scarring ?? and apical thickening. ? MEDIASTINUM: Central trachea and the bronchi appears widely patent. The ?? thyroid lobes are symmetrical and normal. No abnormal size mediastinal ?? lymph nodes seen. No pericardial effusion seen. ? CORONARY ARTERY CALCIFICATION: None visualized on this study. ? PLEURA: There is minimal bibasilar. No pleural effusion seen. ? AXILLA: Small scattered left axillary lymph nodes seen. There are ?? benign. The chest wall is unremarkable. ? UPPER ABDOMEN: Visualized liver, spleen, pancreas and bilateral adrenal ?? glands are unremarkable. There is a left adrenal lesion not well ?? visualized. ? OSSEOUS STRUCTURES: No aggressive lytic or sclerotic process seen. ? CT/CT chest wo IV con ?? IMPRESSION: ?? Centrilobular emphysema with scattered pulmonary nodules as described ?? above. ? There is minimal bibasilar pleural thickening and bibasilar and right ?? upper lobe atelectasis. Focal opacity right upper lobe is likely ?? related to emphysema or atelectasis. ? Fleischner guidelines were followed. ? Electronically signed by: ??Cirilo Quezada MD ??06/12/2024 04:58 PM EST RP ? Dictated By: ?Cirilo Quezada MD ? Signed By: ?<Electronically signed by Cirilo Quezada MD in OV> ?06/12/248 ? DD/ 1606 ? TD/TT: 06/12/24 1620 ? Economics Consultant: MSM ? Procedure Note Donscottericaamanda, Image - 06/12/[address] [place] [address] [address] Scan Report Signed Patient: Leda GudinoMR# : [id number] : 1965Acct:[id number] Age/Sex: 59 / FADM Date: 06/12/24 Loc: [facility] 476-[address]: Augustin Urbina MD Ordering Physician: Augustin Urbina MD Date of Service: 06/12/24 Procedure(s): CT chest wo IV con Accession Number(s): [id number] cc: Augustin Urbina MD; Lurdes Lo MD Report Number: [id number]: Total DLP = 149.00 mGy-cm EXAMINATION: CT CHEST WITHOUT CONTRAST CLINICAL INFORMATION: Bilateral crackles COMPARISON: None available. TECHNIQUE: Multidetector volumetric CT imaging of the chest was done. Axial MIP volume rendering provided. Sagittal and coronal reformatted images were obtained. This CT examination was performed using dose optimization techniques as appropriate, variously including the following: *Automated exposure control *Adjustment of mA and/or kV according to patient size (this includes techniques or standardized protocols for targeted exams where dose is matched to indication/reason for exam; i.e. extremities or head) *Use of iterative reconstruction technique DLP: 149 mGy/cm. FINDINGS: SAMPLE HAND: Hyperinflated lungs. LUNGS: There is mild centrilobular emphysema category micronodules throughout both lungs. Two 4 mm nodules are seen in the right middle lobe laterally on axial image 85/4 and 5 mm nodule right lower lobe adjacent to major fissure axial image 86/4. There is patchy parenchymal opacities in the right upper lobe apical posterior segment image 98/6, focal atelectatic changes in both lung bases and lingula and bilateral apical scarring and apical thickening. MEDIASTINUM: Central trachea and the bronchi appears widely patent. The thyroid lobes are symmetrical and normal. No abnormal size mediastinal lymph nodes seen. No pericardial effusion seen. CORONARY ARTERY CALCIFICATION: None visualized on this study. PLEURA: There is minimal bibasilar. No pleural effusion seen. AXILLA: Small scattered left axillary lymph nodes seen. There are benign. The chest wall is unremarkable. UPPER ABDOMEN: Visualized liver, spleen, pancreas and bilateral adrenal glands are unremarkable. There is a left adrenal lesion not well visualized. OSSEOUS STRUCTURES: No aggressive lytic or sclerotic process seen. CT/CT chest wo IV con IMPRESSION: Centrilobular emphysema with scattered pulmonary nodules as described above. There is minimal bibasilar pleural thickening and bibasilar and right upper lobe atelectasis. Focal opacity right upper lobe is likely related to emphysema or atelectasis. Fleischner guidelines were followed. Electronically signed by: Cirilo Quezada MD 06/12/2024 04:58 PM [facility] Dictated By: Cirilo Quezada MD Signed By: <Electronically signed by Cirilo Quezada MD in OV> 06/12/24 1658 DD/ 1606 TD/TT: 06/12/24 1620 Economics Consultant: ESTRELLA [facility] External Provider IMG CT PROCEDURES Final Result documented in this encounter Visit Diagnoses Diagnosis Polyarthralgia- Primary Pain in joint, multiple sites Elevated antinuclear antibody (CAROLIN) level Other and unspecified nonspecific immunological findings Rheumatoid factor positive with cyclic citrullinated peptide (CCP) antibody negative documented in this encounter Additional Health Concerns Assessment Noted Time PHQ-9 Depression Total Score: 8 02/13/20 24 11:13 AM EDT documented as of this encounter Care Teams Spider Assembler Relationship Specialty Start Date End Date Lurdes Lo MD [address] [place] [address] PCP - General Family Medicine 08/09/22 Ahmet Lombardo, StellaD [address] [place] [address] Pharmacist Internal Medicine 09/03/22 Deepti Boo Maternal Child NurseStone Gluer 06/13/23 Home Care [facility] 03/05/24 documented as of this encounter
--- OUTSIDE RECORDS SUMMARY | 2024-07-03 13:08 | XMS_ITS | Encounter Summary ---
Author Organization [employer] Address [address] [facility] 7t [place] [address] Care Team Providers Care Wire Bender Name Role Phone Lurdes Lo MD Primary Care Provider [phone] Ahmet Lombardo PharmD Unavailable [phone] Reason for Visit * Reason Onset Date Comments Appointment Request 06/02/2024 Encounter Details Date Type Department Care Team (Late st Contact Info) Description 06/02/2024 Refill [facility] MEDICINE [address] [place], [place] [phone] Lurdes Lo MD [address] [place], [place] [phone] Social History Tobacco Use Types Packs/Day Years [...] Description 07/18/2024 3:00 PM EDT Office Visit [facility] ADULT DENTAL [address] [place] [address] Jayashree Kellogg DDS [address] [place] [address] 07/24/2024 9:15 AM EDT Procedure Visit [facility] MEDICINE [address] [place] [address] Makayla Knott MD [address] [place] [address] documented as of this encounter Goals Goal [...] documented as of this encounter Care Teams Wire Bender Relationship Specialty Start Date End Date Lurdes Lo MD [address] [place] [address] PCP - General Family Medicine 08/09/22 Ahmet Lombardo, PharmD [address] [place] [address] Pharmacist Internal Medicine 09/03/22 Deepti Boo Medical Clerical AssistantCarbon Cleaner 06/13/23 Home Care [facility] 03/05/24 documented as of this encounter
--- OUTSIDE RECORDS SUMMARY | 2024-07-03 13:08 | XMS_ITS | Encounter Summary ---
Author Organization [employer] Address [address] [facility] 7t [place] [address] Care Team Providers Care Director Of Spa And Guest Experience Name Role Phone Lurdes Lo MD Primary Care Provider [phone] Ahmet Lombardo PharmD Unavailable [phone] Encounter Details Date Type Department Care Team ([facility] st Contact Info) Description 06/07/2024 Telephone [facility] MEDICINE [address] [place], [place] [phone] Kiarra Carney, EDGAR [address] [place], [place] [phone] Social History Tobacco Use Types Packs/Day Years [...] 2:36 PM EST T/C to pt via [facility] Corporate Trainer Gavin #[id number] to advise of message from PCP re: [...] high. I recommendher to be evaluated by regulatory affairs internship for her pain and weakness. Her symptoms may be due to not only fibromyalgia but also POSSIBLE rheumatoid arthritis. I am making a referral to regulatory affairs internship. Thank you documented in this encounter Plan of Treatment Upcoming Encounters Date Type Department Care Team (Late st Contact Info) Description 07/18/2024 3:00 PM EDT Office Visit [facility] ADULT DENTAL [address] [place] [address] Jayashree Kellogg DDS [address] [place], [place] [phone] 07/24/2024 9:15 AM EDT Procedure Visit [facility] MEDICINE [address] [place] [address] Makayla Knott MD [address] [place] [address] documented as of this encounter Goals Goal Patient Goal Type Associated Problems Recent Progress Patient-Stated? Author Quit using tobacco (cigarettes, smokeless, etc) Tobacco Use No Ahmet Lombardo, StellaD documented as of this encounter Visit Diagnoses Not on filedocumented in this encounter Additional Health Concerns Assessment Noted Time PHQ-9 Depression Total Score: 8 02/13/20 24 11:13 AM EDT documented as of this encounter Care Teams Director Of Spa And Guest Experience Relationship Specialty Start Date End Date Lurdes Lo MD [address] [place] [phone] PCP - General Family Medicine 08/09/22 Ahmet Lombardo, PharmD [address] [place] [address] [phone] Pharmacist Internal Medicine 09/03/22 Deepti Boo Manager PlayAutomation Technician 06/13/23 Home Care [facility] 03/05/24 documented as of this encounter
--- OUTSIDE RECORDS SUMMARY | 2024-07-03 13:08 | XMS_ITS | Encounter Summary ---
Author Organization [employer] Address 75 [facility] 7t [place] [address] Care Team Providers Care Volcanology Professor Name Role Phone Lurdes Lo MD Primary Care Provider [phone] Ahmet Lombardo PharmD Unavailable [phone] Encounter Details Date Type Department Care Team (Late st Contact Info) Description 06/12/2024 1:20 PM EST Office Visit [facility] [address] [place], [place] [phone] Vanessa Davis MD [address] [place], [place] [phone] Hypoxia (Primary Dx); Asthma-COPD overlap syndrome (CMS/HCC); [...] currently on 1L oxygen via nasal cannula. [facility] staff Pam assisting with translation. EMS called by Walk In RN Conchis per verbal order per Dr. Davis. EMS final assembly and packing supervisor arrived first and given verbal report by this RN, per EMS final assembly and packing supervisor awaiting ambulance. later Dr. Davis in room to speak with pt/EMS final assembly and packing supervisor. EMS ambulance arrived around 1118. Pt [...] Description 07/18/2024 3:00 PM EDT Office Visit [facility] [address] [place] [address] Altamirano-LugoAlexJayashree, DDS [address] [place] [address] 07/24/2024 9:15 AM EDT Procedure Visit [facility] [address] [place] [address] Makayla Knott MD [address] [place] [address] documented as of this encounter Goals Goal Patient Goal Type Associated Problems Recent Progress Patient-Stated? Author Quit using tobacco (cigarettes, smokeless, etc) Tobacco Use Ahmet Villareal, Ladonna documented as of this encounter Procedures Procedure [...] AM EST) Influenza A Negative Negative, Indeterminate [facility] Swab 06/12/2024 11:0 9 AM EST us Vanessa Davis MD POINT OF CARE TEST ENTER/E DIT ORDERABLES Final Result Performing Organization Address [facility]/ZIP Co de Phone Number [facility] [address] [place] [phone] * POCT Rapid Influenza B ALVARES ID NOW (06/12/2024 11:09 AM EST) Influenza B Negative Negative, Indeterminate [facility] Swab 06/12/2024 11:0 9 AM EST Vanessa Davis MD POINT OF CARE TEST ENTER/E DIT ORDERABLES Final Result Performing Organization Address [facility] Co de Phone Number [facility] [address] [place] [phone] * POCT Rapid Covid-19 BinaxNOW (06/12/2024 11:09 AM EST) Rapid COVID Ag Negative [facility] Nares 06/12/2024 11:0 9 AM EST Vanessa Davis MD POINT OF CARE TEST ENTER/E DIT ORDERABLES Final Result Performing Organization Address [facility] Co de Phone Number [facility] [address] [place] [phone] documented in this encounter Visit Diagnoses [...] documented as of this encounter Care Teams Volcanology Professor Relationship Specialty Start Date End Date Lurdes Lo MD [address] [place], [place] [phone] PCP - General Family Medicine 08/09/22 Ahmet Lombardo, Ladonna [address] [place] [address] Pharmacist Internal Medicine 09/03/22 Deepti Boo Sterile Processing TechnologistTalent Associate 06/13/23 [facility] 03/05/24 documented as of this encounter
--- OUTSIDE RECORDS SUMMARY | 2024-07-03 13:08 | XMS_ITS | Encounter Summary ---
Author Organization [employer] Address 75 [facility] 7t [place] [address] Care Team Providers Care Spray Stainer Name Role Phone Lurdes Lo MD Primary Care Provider [phone] Ahmet Lombardo PharmD Unavailable [phone] Encounter Details Date Type Department Care Team [...] Description 07/18/2024 3:00 PM EDT Office Visit [facility] [address] [place] [address] Jayashree Kellogg DDS [address] [place] [address] 07/24/2024 9:15 AM EDT Procedure Visit [facility] [address] [place] [address] Makayla Knott MD 230 [place] [address] documented as of this encounter Goals Goal Patient Goal Type Associated Problems Recent Progress Patient-Stated? Author Quit using tobacco (cigarettes, smokeless, etc) Tobacco Use No Amhet Lombardo PharmD documented as of this encounter Visit Diagnoses Not on filedocumented in this encounter Additional Health Concerns Assessment Noted Time PHQ-9 Depression Total Score: 8 02/13/20 24 11:13 AM EDT documented as of this encounter Care Teams Spray Stainer Relationship Specialty Start Date End Date Lurdes Lo MD [address] [place] [address] PCP - General Family Medicine 08/09/22 Ahmet Lombardo, Ladonna [address] [place] [address] Pharmacist Internal Medicine 09/03/22 Deepti Boo Nurse Case ManagerEndodontic Assistant 06/13/23 Home Care [facility] 03/05/24 documented as of this encounter
--- OUTSIDE RECORDS SUMMARY | 2024-07-03 13:08 | XMS_ITS | Encounter Summary ---
Author Organization [employer] Address 75 [facility] 7t [place] [address] Care Team Providers Care Multiple Launch Rocket System Crewmember Name Role Phone Lurdes Lo MD Primary Care Provider [phone] Ahmet Lombardo PharmD Unavailable [phone] Reason for Visit * Reason Onset Date Comments lung screening 06/06/2024 Encounter Details Date Type Department Care Team (Late st Contact Info) Description 06/06/2024 Telephone [facility] [address] [place], [place] [phone] Sandee Doll [place] lung screening Social History [...] 07/18/2024 3:00 PM EDT Office Visit [facility] [address] [place] [address] Jaysahree Kellogg, DDS [address] [place] [address] 07/24/2024 9:15 AM EDT Procedure Visit [facility] [address] [place] [address] Makayla Knott MD [address] [place] [address] documented as of this encounter Goals Goal [...] documented as of this encounter Care Teams Multiple Launch Rocket System Crewmember Relationship Specialty Start Date End Date Lurdes Lo MD [address] [place], [place] [phone] PCP - General Family Medicine 08/09/22 Ahmet Lombardo, StellaD [address] [place] [address] Pharmacist Internal Medicine 09/03/22 Deepti Boo Trimmer SawyerMechanical Assembly Technician 06/13/23 [facility] 03/05/24 documented as of this encounter
--- OUTSIDE RECORDS SUMMARY | 2024-07-03 13:08 | XMS_ITS | Encounter Summary ---
Author Organization [employer] Address [address] [place] [address] 7t [place] [address] Care Team Providers Care Regional Business Manager Name Role Phone Maria Elena Davis PERCH MACHINE INSPECTOR Primary Care Provider [phone] Lurdes Lo MD Primary Care Provider [phone] Ahmet Lombardo PharmD Unavailable [phone] Encounter Details Date Type Department Care Team (Latest Contact Info) Description 02/09/2022 Abstract [facility] CONVERSIONS Dental, Provider, DDS Social History Tobacco [...] Description 07/18/2024 3:00 PM EDT Office Visit [facility]ULT [facility] [address] [place] [address] Altamirano-Lugo, Jayashree, DDS [address] [place] [address] 07/24/2024 9:15 AM EDT Procedure Visit [facility] [address] [place] [address] Makayla Knott MD [address] [place], [place] [phone] documented as of this encounter Visit Diagnoses Not on filedocumented in this encounter Care Teams Regional Business Manager Relationship Specialty Start Date End Date Maria Elena Davis FNP [address] [place] [address] PCP - General Family Medicine 12/31/21 08/08/22 Lurdes Lo MD [address] [place] [address] PCP - General Family Medicine 08/09/22 Ahmet Lombardo PharmD [address] [place] [address] Pharmacist Internal Medicine 09/03/22 Deepti Boo Supervising NurseOrientation & Mobility Specialist 06/13/23 Home Care [facility] 03/05/24 documented as of this encounter
--- OUTSIDE RECORDS SUMMARY | 2024-07-03 13:09 | XMS_ITS | Encounter Summary ---
Author Organization [employer] Address 75 [facility] 7t [place] [address] Care Team Providers Care Nibbler Operator Name Role Phone Lurdes Lo MD Primary Care Provider [phone] Ahmet Lombardo PharmD Unavailable [phone] Encounter Details Date Type Department Care Team (Latest Contact Info) Description 07/03/2024 Travel Social History Tobacco Use Types Packs/Day [...] before you got money to buy more: Often true 06/15/2024 Within the past 12 months,th e food you bought just didn't last and you didn't have enough money to get more: Often true 11/2024 Transportation Answer Date Recorded In the past [...] Description 07/18/2024 3:00 PM EDT Office Visit [facility]ULT D[facility] [address] [place] [address] Jayashree Kellogg DDS [address] [place] [address] 07/24/2024 9:15 AM EDT Procedure Visit [facility] [address] [place] [address] Makayla Knott MD [address] [place] [address] documented as of this encounter Goals Goal [...] documented as of this encounter Care Teams Nibbler Operator Relationship Specialty Start Date End Date Lurdes Lo MD [address] [place] [address] PCP - General Family Medicine 08/09/22 Ahmet Lombardo, Ladonna [address] [place] [address] Pharmacist Internal Medicine 09/03/22 Deepti Boo Roofer MetalDiamond Blender 06/13/23 Home Care [facility] 03/05/24 documented as of this encounter
--- OUTSIDE RECORDS SUMMARY | 2024-07-03 13:09 | XMS_ITS | Encounter Summary ---
Author Organization [employer] Address 75 [facility] 7t [place] [address] Care Team Providers Care Sanitation Associate Name Role Phone Lurdes Lo MD Primary Care Provider [phone] Ahmet Lombardo PharmD Unavailable [phone] Reason for Visit * Reason Comments Transition Of Care (Tcm) HDF scheduled a nd SDOH screening positive and Tobacco screening positive Encounter Details Date Type Department Care Team (Late st Contact Info) Description 06/15/2024 Patient Outreach [facility] [address] [place], [place] [phone] Lurdes Lo MD [address] [place], [place] [phone] Transition Of Care (Tcm) (HDF scheduled and SDOH screening positive and Tobacco screening positive) Social History Tobacco Use Types Packs/Day Years [...] as of this encounter Miscellaneous Notes * Significant Event - Frank Gentile - 06/15/2024 8:44 AM EST 06/15/24 0834 Hospital Discharges and Admission for [facility] Type of Visit Hospital Admission Date of Admission/Visit 06/12/24 Date of Discharge 06/14/24 [facility] Diagnosis Influenza A, COPD exacerbation Disposition Discharged Home Follow-Up Actions Follow-Up Needed Provider appointment Follow-Up Outcome Spoke to Patient;Booked Appointment Initial Contact Date 06/15/24 JACE Dos Santos placed outbound call to patient for HDF outreach. Patient's name and were confirmed. Patient educated on the importance of follow up with provider following inpatient admission. Patient offered an HDF appt. Patient is agreeable to an appointment and has been scheduled for 07/03/2024t 9:30am with Dr. Holliday. Insurance verified prior to scheduling. Patient advised to bring to appointment a photo id and insurance card. Patient provided with education on contacting the Health Center with any questions or concerns prior to the scheduled appointment. Patient educated on extendedclinic hours on Mondays and Wednesdays, and Walk-In Urgent Care Located in [facility]. Patient provided with after-hours line for [facility], , which offer night time triage service and optionto transfer to client relationship manager provider if needed. CC scanned discharge summary into patient's chart. Biggest concern for appointment at this time is no concerns. Appropriate screenings completed in anticipation of appointment. Tobacco screening positive. Will counseling. SDOH positive. Patient looking forassistance with food insecurities: Sometimes and utilities. Referral will be placed. documented in this encounter Plan of Treatment Upcoming Encounters Date Type Department Care Team (Late st Contact Info) Description 07/18/2024 3:00 PM EDT Office Visit [facility] [address] [place] [address] Jayashree Kellogg DDS [address] [place] [address] 07/24/2024 9:15 AM EDT Procedure Visit [facility] [address] [place] [address] Makayla Knott MD [address] [place] [address] documented as of this encounter Goals Goal [...] documented as of this encounter Care Teams Sanitation Associate Relationship Specialty Start Date End Date Lurdes Lo MD [address] [place] [address] PCP - General Family Medicine 08/09/22 Ahmet Lombardo PharmD [address] [place] [address] Pharmacist Internal Medicine 09/03/22 Deepti Boo Coding AnalystEthanol Quality Leader 06/13/23 Home Care [facility] 03/05/24 documented as of this encounter
--- OUTSIDE RECORDS SUMMARY | 2024-07-03 13:09 | XMS_ITS | Encounter Summary ---
Author Organization [employer] Address 75 [facility] 7t [place] [address] Care Team Providers Care Production Mechanic Tin Cans Name Role Phone Lurdes Lo MD Primary Care Provider [phone] Ahmet Lombardo PharmD Unavailable [phone] Encounter Details Date Type Department Care Team (Latest Contact Info) Description 06/19/2024 Travel Social History Tobacco Use Types Packs/Day [...] [facility] ADULT [facility] [address] [place] [address] Jayashree Kellogg DDS [address] [place] [address] 07/24/2024 9:15 AM EDT Procedure Visit [facility] MEDICINE [address] [place] [address] Makayla Knott MD [address] [place] [address] documented as of this encounter Goals Goal [...] documented as of this encounter Care Teams Production Mechanic Tin Cans Relationship Specialty Start Date End Date Lurdes Lo MD [address] [place] [address] PCP - General Family Medicine 08/09/22 Ahmet Lombardo, Ladonna [address] [place] [address] Pharmacist Internal Medicine 09/03/22 Deepti Boo Mathematical PhysicistInsurance Underwriting Assistant 06/13/23 Home Care [facility] 03/05/24 documented as of this encounter
--- OUTSIDE RECORDS SUMMARY | 2024-07-03 13:09 | XMS_ITS | Encounter Summary ---
Author Organization [employer] Address 75 [facility] 7t [place] [address] Care Team Providers Care Environmental Construction Engineer Name Role Phone Lurdes Lo MD Primary Care Provider [phone] Ahmet Lombardo PharmD Unavailable [phone] Reason for Visit * Reason Comments Care Coordination SDOH Concerns C3CM/CRISTHIAN Donovan program enrollment, SDOH assessment Encounter Details Date Type Department Care Team (Late st Contact Info) Description 06/15/[address] [facility] [address] [place], [place] [phone] Lurdes Lo MD [address] [place], [place] [phone] Care Coordination; SDOH Concerns (BRIONNA/CRISTHIAN Wei program enrollment, SDOH assessment ) Social History Tobacco Use Types Packs/Day Years [...] AM EDT documented as of this encounter Progress Notes * Cindy Doll - 06/15/2024 10:25 AM EST CHW Cindy Doll, placed outbound call to patient introducing herself from [facility] CM Department, in regards to SDOH for food and utility insecurities. Patient's name and was confirmed. Patient agrees to participate in CM Program for SDOH needs. CHW completed SDOH screening. Patient has stable housing and no issues in the apartment. Patient has food insecurities. CHW introduced the HRSN Program. Program details explained to the patient. Patient agreeable to participate in the program. Referral placed. Patient has transportation for appts. Patient is concerned utility services will be shut off but has not received shut off notice. CHW advised patient to apply for Fuel Assistance as patient has not done so. Patient stated that she will and is aware of VOC location. Patient will also come to [facility] for medical protection on utility account. Patient has internet access in the home. CHW reinforced direct contact information . A follow up call will be placed wi [facility] 10 days, patient agrees with plan. documented in this encounter Plan of Treatment Upcoming Encounters Date Type Department Care Team (Late st Contact Info) Description 07/18/2024 3:00 PM EDT Office Visit [facility] [address] [place], [place] [phone] Altamirano-Parish Jayashree, DDS [address] [place] [address] 07/24/2024 9:15 AM EDT Procedure Visit [facility] [address] [place], [place] [phone] Makayla Knott MD [address] [place], [place] [phone] documented as of this encounter Goals Goal [...] documented as of this encounter Care Teams Environmental Construction Engineer Relationship Specialty Start Date End Date Lurdes Lo MD [address] [place] [address] PCP - General Family Medicine 08/09/22 Ahmet Lombardo, PharmD [address] [place] [address] Pharmacist Internal Medicine 09/03/22 Deepti oBo Utility Supervisor Boat And PlantHogshead Filler 06/13/23 [facility] 03/05/24 documented as of this encounter
--- OUTSIDE RECORDS SUMMARY | 2024-07-03 13:09 | XMS_ITS | Encounter Summary ---
Author Organization [employer] Address 75 [facility] 7t [place] [address] Care Team Providers Care Inspector And Sorter Name Role Phone Lurdes Lo MD Primary Care Provider [phone] Ahmet Lombardo PharmD Unavailable [phone] Reason for Visit * Reason Comments Med Refill Encounter Details Date Type Department Care Team ([facility] st Contact Info) Description 02/21/2023 Refill [facility] MEDICINE [address] [place], [place] [phone] [facility] 230 [place], [place] [phone] Social History Tobacco Use Types Packs/Day Years [...] 07/18/2024 3:00 PM EDT Office Visit [facility] ADULT DENTAL [address] [place] [address] Jayashree Kellogg DDS [address] [place] [address] 07/24/2024 9:15 AM EDT Procedure Visit [facility] MEDICINE [address] [place] [address] Makayla Knott MD [address] [place] [address] documented as of this encounter Goals Goal [...] documented as of this encounter Care Teams Inspector And Sorter Relationship Specialty Start Date End Date Lurdes Lo MD [address] [place] [address] PCP - General Family Medicine 08/09/22 Ahmet Lombardo PharmD [address] [place] [address] Pharmacist Internal Medicine 09/03/22 Deepti Boo Manager BakeryTelegraph Messenger 06/13/23 Home Care [facility] 03/05/24 documented as of this encounter
--- OUTSIDE RECORDS SUMMARY | 2024-07-03 13:09 | XMS_ITS | Clinical Summary ---
Author Organization [employer] [facility] it Address [address] [place] [address] Care Team Providers Care Manager E Learning Name Role Phone Unavailable Primary Care Provider Unavailabl e Social History Tobacco Use Types Packs/Day Years Used Date Smoking Tobacco: Never Assessed Comments Unknown Sex and Gender Information Value Date Recorded Sex Assigned at Not on file Legal Sex Female 10:04 AM EST Gender Identity Not on file Sexual Orientation Not on file Plan of Treatment Health Maintenance Due Date Last Done Comments Breast Cancer Screening 1967 DTaP,Tdap,and Td Vaccines (1 - Tdap) 1986 Hepatitis B Vaccines (1 of 3 - 19+ 3-dose series) 1986 Cervical Cancer Screening: P ap Smear 01/30/1988 Pneumococcal Vaccine: 50+ Ye ars (1 of 1 - PCV) 2017 Zoster Vaccines (1 of 2) 2017 COVID-19 [...] patient's age to complete this topic Meningococcal B Vacine Aged Out No lo nger eligible based on patient's age to complete [...]
--- OUTSIDE RECORDS SUMMARY | 2024-07-03 13:09 | XMS_ITS | Encounter Summary ---
Author Organization [employer] Address 75 [facility] 7t [place] [address] Care Team Providers Care Transportation Operations Manager Name Role Phone Lurdes Lo MD Primary Care Provider [phone] Ahmet Lombardo PharmD Unavailable [phone] Reason for Visit * Reason Onset Date Comments Chart Prep 06/27/2024 Encounter Details Date Type Department Care Team ([facility] st Contact Info) Description 06/27/2024 Telephone [facility] MEDICINE [address] [place], [place] [phone] Lurdes Lo MD [address] [place], [place] [phone] Chart Prep Social History Tobacco Use Types Packs/Day Years [...] encounter Miscellaneous Notes * Telephone Encounter - Kamryn Condon [place] - 06/27/2024 11:34 AM EST Chart Prep Labs: done Images: not applicable Vaccines due: Covid Due, Hep A Due, Hep B Due, and Shingles in pharmacy Due Referrals: Rheumatology Pending appointment on n/a, sent a fax for notes in case pt has been seen. Screenings: PAP, Lung Cancer screening , and HIV screening Overdue care gaps: None documented in this encounter Plan of Treatment Upcoming Encounters Date Type Department Care Team (Late st Contact Info) Description 07/18/2024 3:00 PM EDT Office Visit [facility] ADULT DENTAL [address] [place] [address] Jayashree Kellogg DDS [address] [place] [address] 07/24/2024 9:15 AM EDT Procedure Visit [facility] MEDICINE [address] [place] [address] Makayla Knott MD [address] [place] [address] documented as of this encounter Goals Goal [...] documented as of this encounter Care Teams Transportation Operations Manager Relationship Specialty Start Date End Date Lurdes Lo MD [address] [place] [address] PCP - General Family Medicine 08/09/22 Ahmet Lombardo, StellaD [address] [place] [address] Pharmacist Internal Medicine 09/03/22 Deepti Boo Shredder PickerResidential Direct Support Professional 06/13/23 Home Care [facility] 03/05/24 documented as of this encounter
--- OUTSIDE RECORDS SUMMARY | 2024-07-03 13:09 | XMS_ITS | Encounter Summary ---
Author Organization [employer] Address [address] [place] [address] Care Team Providers Care Project Executive Name Role Phone Lurdes Lo MD Primary Care Provider Ahmet Lombardo PharmD Unavailable [phone] Reason for Visit * Reason Comments trigger point Encounter Details Date Type Department Care Team (Latest Contact Info) Description 06/19/2024 9:15 AM EST Procedure Visit [facility] MED[facility] [address] [place], [place] [phone] Makayla Knott MD [address] [place], [place] [phone] Fibromyalgia (Primary Dx); Spasm of left trapezius muscle Social History Tobacco Use Types Packs/Day Years [...] Sign Reading Time Taken Comments Blood Pressure 118/69 06/19/2024 9:12 AM EST Pulse 66 06/19/2024 9:12 AM EST Temperature 36.6 ??C (97.8 ??F) 06/19/2024 9:12 AM ES T Respiratory Rate 16 06/19/2024 9:12 AM EST Oxygen Saturation 97% 06/19/2024 9:12 AM EST Inhaled Oxygen Concentration - - Weight 49.4 kg (109 lb) 06/19/2024 9:12 AM EST Height 160 cm (5' 3 ) 06/19/2024 9:12 AM EST Body Mass Index 19.31 06/19/2024 9:12 AM EST documented in this encounter Progress Notes * Makayla Knott MD - 06/19/2024 9:15 AM ESTAssociated Order(s): General Post-Procedure Diagnose(s): Spasm of left trapezius muscle SUBJECTIVE: Leda Curtis is a 59 y.o. year old female who presents for procedure visit . Denies recent illness, ER visit, or hospitalization. Acute Concerns: General Date/Time: 06/19/2024 9:36 AM Performed by: Makayla Knott MD Authorized by: Makayla Knott MD Confirmed correct patient, procedure, site, and patient consented: Yes Consent: Consent obtained: Written Consent given by: Patient Procedure risks and benefits discussed: Yes Patient questions answered: Yes Patient agrees, verbalizes understanding, and wants to proceed: Yes [place] protocol: Procedure explained and questions answered to patient or proxy's satisfaction: yes Relevant documents present and verified: yes Patient identity confirmed: Verbally with patient Indications: Indications: Muscle spsm, L trapezius muscle Pre-procedure details: Procedure prep: alcohol pads. Sedation: Sedation type: None Anesthesia: Anesthesia method: None Procedure specific details: Points of maximal tenderness and muscle triggering palpated over the Left trapezius muscles, five points in total on the Left side. 0.3-0.5cc of lidocaine 2% without epi was injected into each point in a stellate manner. Post-procedure details: Procedure completion: Tolerated well, no immediate complications Patient Active Problem List Diagnosis Depressive disorder Fibromyalgia Gastroesophageal reflux disease H/O: hysterectomy Insomnia Macrocytosis without anemia Nausea Osteoporosis Paresthesia of lower extremity Postablative ovarian failure Pure hypercholesterolemia Tobacco dependence Gas pain Asthma-COPD overlap syndrome (CMS/HCC) Allergic rhinitis History of small bowel obstruction History of resection of small bowel History of Helicobacter pylori infection Trigger ring finger of left hand Dental abscess Dental caries Kidney stone Chronic pain of both shoulders Retained dental root Allergies Constipation History of surgical procedure Difficulty maintaining weight Vitamin D deficiency Alveolitis of maxilla History of tooth extraction Gabapentin overdose Polyarthralgia Hypoxia Spasm of left trapezius muscle Past Surgical History: Procedure Laterality Date HYSTERECTOMY LEFT OOPHORECTOMY Left RIGHT OOPHORECTOMY Right SMALL INTESTINE SURGERY 03/2021 small bowel obstruction Family History Problem Relation Name Age of Onset Stroke Mother Brianne Heart attack Mother Brianne Depression Mother Brianne Social History Social History Narrative Not on file Review of Systems Constitutional: Negative. Musculoskeletal: Positive for arthralgias and myalgias. OBJECTIVE: Vitals: 06/19/24 0912 BP: 118/69 BP Location: Left arm Patient Position: Sitting BP Cuff Size: Adult Pulse: 66 Resp: 16 Temp: 97.8 ??F (36.6 ??C) TempSrc: Temporal SpO2: 97% Weight: 109 lb (49.4 kg) Height: 5' 3 (1.6 m) Physical Exam Vitals and nursing note reviewed. Constitutional: Appearance: Normal appearance. HENT: Head: Normocephalic and atraumatic. Musculoskeletal: General: Tenderness present. Skin: General: Skin is warm and dry. Neurological: General: No focal deficit present. Mental Status: She is alert and oriented to person, place, and time. Psychiatric: Mood and Affect: Mood normal. Behavior: Behavior normal. ASSESSMENT/PLAN Problem List Items Addressed This Visit Fibromyalgia - Primary Spasm of left trapezius muscle Follow Up: 8 weeks or sooner prn Allergies Allergen Reactions Acetaminophen Nausea And Vomiting Tramadol Unknown Other Reaction(s): NAUSEA & VOMITING Current Outpatient Medications: albuterol (2.5 MG/3ML) 0.083% nebulizer solution, INHALE 1 AMPULE USING A NEBULIZER EVERY 4 HOURS NEEDED FOR WHEEZING OR SHORTNESS OF BREATH. DO NOT EXCEED FOUR TIMES DAILY., Disp: 90 mL, Rfl: 3 amitriptyline (Elavil) 25 MG tablet, TAKE 1 TABLET BY MOUTH DAILY AT BEDTIME, Disp: 90 tablet, Rfl:3 Breo Ellipta 200-25 MCG/ACT aerosol powder , INHALE 1 PUFF BY MOUTH EVERY DAY. RINSE MOUTH AFTER USING., Disp: , Rfl: chlorhexidine (Peridex) 0.12 % solution, Swish 15 mL morning and night for 1 minute. Spit, do not swallow. Do not eat or drink for 30 minutes following use., Disp: 473 mL, Rfl: 0 cholecalciferol (Vitamin D-3) 50 MCG (2000 UT) capsule, Take 1 capsule by mouth in the morning., Disp: , Rfl: Diclofenac Sodium 1 % gel, Apply to affected area once or twice daily as needed for pain, Disp: 200g, Rfl: 3 dicyclomine (Bentyl) 20 MG tablet, TAKE 1 TABLET BY MOUTH UP TO FOUR TIMES DAILY NEEDED FOR GAS,Disp: 120 tablet, Rfl: 3 docusate sodium (Colace) 100 MG capsule, take 2 capsule by oral route at bedtime every day as needed, Disp: , Rfl: DULoxetine (Cymbalta) [address] capsule, Take 1 capsule (20 mg) by mouth Once per day. Do not crush or chew., Disp: 30 capsule, Rfl: 11 fluticasone (Flonase) 50 MCG/ACT nasal spray, Administer 1 spray into each nostril Once per day., Disp: 48 g, Rfl: 3 gabapentin (Neurontin) 400 MG capsule, Take 1 capsule (400 mg) by mouth 3 times daily., Disp: 90 capsule, Rfl: 11 ibuprofen 600 MG tablet, TAKE 1 TABLET BY MOUTH EVERY 6 HOURS NEEDED FOR PAIN DO NOT TAKE EVERY DAY FOR MORE THAN 2 WEEKS, Disp: 30 tablet, Rfl: 3 Incruse Ellipta 62.5 MCG/ACT aerosol powder , INHALE 1 PUFF EVERY DAY AT THE SAME TIME, Disp: , Rfl: lidocaine (Lidoderm) 5 % patch, APPLY 3 PATCHES EVERY DAY, MAY LEAVE ON FOR UP TO 12 HOURS, Disp: 90 patch, Rfl: 11 montelukast (Singulair) 10 MG tablet, TAKE 1 TABLET BY MOUTH EVERY MORNING, Disp: 90 tablet, Rfl: 3 omeprazole (PriLOSEC) [address] capsule, TAKE 1 CAPSULE BY MOUTH BEFORE BREAKFAST, Disp: 90 capsule,Rfl: 1 ondansetron ODT (Zofran-ODT) 4 MG disintegrating tablet, DISSOLVE 1 TABLET ON TONGUE AND SWALLOW EVERY 6 HOURS NEEDED FOR NAUSEA, Disp: 30 tablet, Rfl: 11 sennosides (Senokot) 8.6 MG tablet, Take 2 tablets (17.2 mg) by mouth if needed each day for constipation., Disp: 60 tablet, Rfl: 5 triamcinolone (Kenalog) 0.5 % ointment, Apply topically every 12 (twelve) hours., Disp: , Rfl: Ventolin HFA 108 (90 Base) MCG/ACT inhaler, INHALE 2 PUFFS BY MOUTH EVERY 4 TO 6 HOURS NEEDED FOR WHEEZING OR SHORTNESS OF BREATH, Disp: , Rfl: Dominican Translation: Provided by [facility] staff member LALO Camacho documented in this encounter Plan of Treatment Upcoming Encounters Date Type Department Care Team (Late st Contact Info) Description 07/18/2024 3:00 PM EDT Office Visit [facility] ADULT DENTAL [address] [place] [address] Jayashree Kellogg DDS [address] [place] [address] 07/24/2024 9:15 AM EDT Procedure Visit [facility] [address] [place] [address] Makayla Knott MD [address] [place] [address] documented as of this encounter Goals Goal Patient Goal Type Associated Problems Recent Progress Patient-Stated? Author Quit using tobacco (cigarettes, smokeless, etc) Tobacco Use No Ahmet Lombardo, StellaD documented as of this encounter Procedures Procedure Name Priority Date/Time Associated Diagnosis Comments GENERAL Routine 06/19/2024 9:36 AM EST Spasm of left trapezius muscle documented in this encounter Results * General (06/19/2024 9:36 AM EST) Narrative Makayla Knott MD - 06/19/2024 9:36 AM EST Makayla Knott MD ? 06/22/2024 ??5:09 PM General Date/Time: 06/19/2024 9:36 AM Performed by: Makayla Knott MD Authorized by: Makayla Knott MD ?? Confirmed correct patient, procedure, site, and patient consented: Yes ?? Consent: ??Consent obtained: ??Written ??Consent given by: ??Patient ??Procedure risks and benefits discussed: Yes ?Patient questions answered: Yes ?Patient agrees, verbalizes understanding, and wants to proceed: Yes ?? [place] protocol: ??Procedure explained and questions answered to patient or proxy's satisfaction: yes ?Relevant documents present and verified: yes ?Patient identity confirmed: ??Verbally with patient Indications: ??Indications: ??Muscle spsm, L trapezius muscle Pre-procedure details: ??Procedure prep: alcohol pads. Sedation: ??Sedation type: ??None Anesthesia: ??Anesthesia method: ??None Procedure specific details: ?? Points of maximal tenderness and muscle triggering palpated over the Left trapezius muscles, five points in total on the Left side. ??0.3-0.5cc of lidocaine 2% without epi was injected into each point in a stellate manner. Post-procedure details: ??Procedure completion: ??Tolerated well, no immediate complications us Makayla Knott MD IN CLINIC/BEDSIDE ORDERABLES F inal Result documented in this encounter Visit Diagnoses Diagnosis Fibromyalgia- Primary Unspecified myalgia and myositis Spasm of left trapezius muscle documented in this encounter Additional Health Concerns Assessment Noted Time PHQ-9 Depression Total Score: 8 02/13/20 24 11:13 AM EDT documented as of this encounter Care Teams Project Executive Relationship Specialty Start Date End Date Lurdes Lo MD [address] [place] [address] PCP - General Family Medicine 08/09/22 Ahmet Lombardo, StellaD [address] [place] [address] Pharmacist Internal Medicine 09/03/22 Deepti Boo Caddie[employer] Reader 06/13/23 Home [facility] 03/05/24 documented as of this encounter
--- OUTSIDE RECORDS SUMMARY | 2024-07-03 13:09 | XMS_ITS | Encounter Summary ---
Author Organization [employer] Address [address] [facility] [address] [place] [address] Care Team Providers Care Community Manager Name Role Phone Lurdes Lo MD Primary Care Provider [phone] Ahmet Lombardo PharmD Unavailable [phone] Reason for Visit * Reason Onset Date Comments Appointment 03/08/2023 Encounter Details Date Type Department Care Team (Late st Contact Info) Description 03/08/2023 Telephone [facility] [address] [place] [address] Jayashree Kellogg DDS [address] [place], [place] [phone] Appointment Social History Tobacco Use Types Packs/Day [...] Description 07/18/2024 3:00 PM EDT Office Visit [facility] [address] [place] [address] Jayashree Kellogg DDS [address] [place] [address] 07/24/2024 9:15 AM EDT Procedure Visit [facility] [address] [place] [address] Makayla Knott MD [address] [place] [address] documented as of this encounter Goals Goal [...] documented as of this encounter Care Teams Community Manager Relationship Specialty Start Date End Date Lurdes Lo MD [address] [place], [place] [phone] PCP - General Family Medicine 08/09/22 Ahmet Lombardo, StellaD [address] [place] [address] Pharmacist Internal Medicine 09/03/22 Deepti Boo Regulatory InternshipMoisture Machine Tender 06/13/23 Home Care [facility] 03/05/24 documented as of this encounter
--- OUTSIDE RECORDS SUMMARY | 2024-07-03 13:09 | XMS_ITS | Encounter Summary ---
Author Organization [employer] Address [address] [facility] [address] [place] [address] Care Team Providers Care Registration Manager Name Role Phone Lurdes Lo MD Primary Care Provider [phone] Ahmet Lombardo PharmD Unavailable Reason for Visit * Reason Comments Med Refill Encounter Details Date Type Department Care Team ([facility] st Contact Info) Description 06/19/2024 Refill [facility] [address] [place], [place] [phone] Lurdes Lo MD [address] [place], [place] [phone] Social History Tobacco Use Types Packs/Day Years [...] Description 07/18/2024 3:00 PM EDT Office Visit [facility] ADULT D[facility] [address] [place] [phone] Jayashree Kellogg, DDS [address] [place] [address] 07/24/2024 9:15 AM EDT Procedure Visit [facility] [address] [place] [phone] Makayla Knott MD [address] [place] [address] documented as of this encounter Goals Goal [...] documented as of this encounter Care Teams Registration Manager Relationship Specialty Start Date End Date Lurdes Lo MD [address] [place] [phone] PCP - General Family Medicine 08/09/22 Ahmet Lombardo, PharmD [address] [place] [phone] Pharmacist Internal Medicine 09/03/22 Deepti Boo Arboriculture InstructorPhoto Booth Operator 06/13/23 Home Care [facility] 03/05/24 documented as of this encounter
--- OUTSIDE RECORDS SUMMARY | 2024-07-03 13:09 | XMS_ITS | Clinical Summary ---
Author Organization [employer] Address [address] [place] [address] [address] [place] [address] Care Team Providers Care Performance Improvement Manager Name Role Phone Lurdes Lo MD Primary Care Provider [phone] Ahmet Lombardo PharmD Unavailable [phone] Allergies Active Allergy Reactions Criticality Noted Date Comments Acetaminophen Nausea And Vomiting 08/24/2023 Tramadol Unknown 04/06/2018 Other Reaction(s): NAUSEA & VOMITING Medications sennosides (Senokot) 8.6 MG tabletIndications :Other constipation Take 2 tablets (17.2 mg) by mouth if needed each day for constipation. 60 tablet 5 022 Active docusate sodium (Colace) 100 MG capsule take 2 capsule by oral route at bedtime every day as needed Active triamcinolone (Kenalog) 0.5 % ointment Apply topically every 12 (twelve) hours. Active Ventolin HFA 108 (90 Base) MCG/ACT [...] BY MOUTH EVERY MORNING 90 tablet 3 024 Active DULoxetine (Cymbalta) [address] capsule Take 1 capsule (20 mg) by mouth Once per day. Do not crush or chew. 30 capsule 11 024 2024 Active amitriptyline (Elavil) 25 MG tablet TAKE 1 TABLET BY MOUTH DAILY AT BEDTIME 90 tablet 3 024 Active chlorhexidine (Peridex) 0.12 % solution Swish 15 mL morning and night for 1 minute. Spit, do not swallow. Do not eat or drink for 30 minutes following use. 473 mL Active gabapentin (Neurontin) 400 MG capsule Take 1 capsule (400 mg) by mouth 3 times daily. 90 capsule 11 024 2024 Active ondansetron ODT (Zofran-ODT) 4 MG disintegrating tabletIndications :Nausea DISSOLVE 1 TABLET ON TONGUE AND SWALLOW EVERY 6 HOURS NEEDED FOR NAUSEA 30 tablet 11 Active ibuprofen 600 MG tablet TAKE 1 TABLET BY MOUTH EVERY 6 HOURS NEEDED FOR PAIN DO NOT TAKE EVERY DAY FOR MORE THAN 2 WEEKS 30 tablet 3 024 Active lidocaine (Lidoderm) 5 % patch APPLY 3 PATCHES EVERY DAY, MAY LEAVE ON FOR UP TO 12 HOURS 90 patch 11 Active Diclofenac Sodium 1 % gel Apply to affected area once or twice daily as needed for pain 200 g 3 024 Active fluticasone (Flonase) 50 MCG/ACT nasal spray Administer 1 spray into each nostril Once per day. 48 g 3 024 Active omeprazole (PriLOSEC) [address] capsuleIndication s:Dyspepsia TAKE 1 CAPSULE BY MOUTH BEFORE BREAKFAST 90 capsule 1 024 Active dicyclomine (Bentyl) 20 MG tablet TAKE 1 TABLET BY MOUTH UP TO FOUR TIMES DAILY NEEDED FOR GAS 120 tablet 3 025 Active albuterol (2.5 MG/3ML) 0.083% nebulizer solution INHALE 1 AMPULE USING A NEBULIZER EVERY 4 HOURS NEEDED FOR WHEEZING OR SHORTNESS OF BREATH. DO NOT EXCEED FOUR TIMES DAILY. 90 mL 3 025 Active cholecalciferol (Vitamin D-3) 50 MCG (2000 UT) capsule Take 1 capsule (50 mcg) by mouth Once per day. 30 capsule 11 025 Active Fluticasone-Umecl idin-Vilant (Trelegy Ellipta) 100-62.5-25 MCG/ACT aerosol powder Inhale 1 puff Once per day. 60 each 3 025 Active cholecalciferol (Vitamin D-3) 50 MCG (1999 UT) capsule Take 1 capsule by mouth in the morning. 2024 Discontinued(R eorder (will not trigger notification to Pharmacy)) dicyclomine (Bentyl) 20 MG tablet TAKE 1 TABLET BY MOUTH UP TO FOUR TIMES DAILY NEEDED FOR ABDOMINAL PAIN 120 tablet 3 024 2024 Discontinued albuterol (2.5 MG/3ML) 0.083% nebulizer solution INHALE 1 AMPULE USING A NEBULIZER EVERY 4 HOURS NEEDED FOR WHEEZING OR SHORTNESS OF BREATH. DO NOT EXCEED FOUR TIMES DAILY 90 mL 3 024 2024 Discontinued Hospital, Clinic, or Other Facility Administered Medication Ordered Dose Route Frequency Start Date End Date Status albuterol (2.5 MG/3ML) 0.083% nebulizer solution 2.5 mgIndications:Asthma -COPD overlap syndrome (CMS/HCC) 2.5 mg NEBULIZATION Once 06/12/2024 06/12/2024 Ende d Active Problems Problem Noted Date Diagnosed Date Positive CAROLIN (antinuclear antibody) 07/03/2024 Rheumatoid factor positive w ith cyclic citrullinated peptide (CCP) antibody negative 07/03/2024 Spasm of left trapezius muscle 06/22/2024 Hypoxia 06/12/2024 Assessment & Plan (06/12/2024 12:16 [...] was notified. Polyarthralgia 06/02/2024 Assessment & Plan (07/03/2024 8:53 AM EST): - history of CAROLIN 1:160 in 2018 - seen by revenue field agent. Normal ESR and CRP. Attributed to fibromyalgia - will check lab again Assessment & Plan (06/02/2024 5:38 PM EST): - history of CAROLIN 1:160 in 2018 - seen by revenue field agent. Normal ESR and CRP. Attributed to fibromyalgia [...] (02/19/2024 6:49 PM EDT): - seen by [facility] in October 2023, Dx tendinitis - [...] (06/02/2024 5:25 PM EST): - seen by [facility] in Dec 2022 - She gave an informed consent to surgical release; she decided to continue to treat conservatively - continue conservative management for now Assessment & Plan (02/19/2024 6:50 PM EDT): - seen by [facility] in Dec 2022 - She gave an informed consent to surgical release; she decided to continue to treat conservatively - continue conservative management for now Assessment & Plan (04/22/2023 5:31 PM EST): - seen by [facility] in Dec 2022 - She gave an informed consent to surgical release; she has not scheduled a surgery date yet. - continue conservative management for now; encouraged to schedule a follow up appt with ortho Assessment & Plan (11/26/2022 7:38 AM EDT): - refer to orthopedist Asthma-COPD overlap syndrome 11/25/2022 Assessment & Plan (07/03/2024 8:53 AM EST): - followed by [facility] pulmonology and lung cancer screening program, last [...] working on smoking cessation Assessment & Plan (06/02/2024 5:24 PM EST): - followed by [facility] pulmonology and lung cancer screening program, last [...] PM EDT): - followed by Dr. Olivera, [facility] pulmon[facility], last seen in Apr 2023 - [...] PM EDT): - followed by Dr. Olivera, [facility], last seen in Dec 2022 - [...] PM EST): - followed by Dr. Olivera, [facility]mon[facility], last seen in Dec 2022 - [...] AM EDT): - followed by Dr. Olivera, [facility], last seen in October 2022 - [...] ondansetron prn Osteoporosis 08/18/2018 Assessment & Plan (07/03/2024 8:53 AM EST): - followed by [facility], last seen in Dec 2022 - [...] nutritional supplement Advised to follow up with [facility]. Assessment & Plan (06/02/2024 5:35 PM EST): - followed by [facility], last seen in Dec 2022 - [...] nutritional supplement Advised to follow up with [facility]. Assessment & Plan (02/19/2024 6:47 PM EDT): - followed by [facility], Dr. Martini, encouraged to schedule appt. - previously on bisphosphonate, but pt discontinued due to side effects and was seen by Dr. Martini to discuss about alternative medications - work on smoking cessation - continue weight-bearing exercise - continue nutritional supplement Assessment & Plan (09/07/2023 9:54 PM EDT): - followed by [facility], Dr. Martini - previously on bisphosphonate, but pt discontinued due to side effects - work on smoking cessation - continue weight-bearing exercise - continue nutritional supplement Assessment & Plan (04/22/2023 5:39 PM EST): - followed by [facility], Dr. Martini - previously on bisphosphonate, but pt discontinued due to side effects - work on smoking cessation - continue weight-bearing exercise - continue nutritional supplement Assessment & Plan (11/26/2022 7:34 AM EDT): - followed by [facility], Dr. Martini - continue bisphosphonate - [...] 07/31/2013 Tobacco dependence 07/31/2013 Assessment & Plan (07/03/2024 10:14 AM EST): - 30 pack year - last chest CT in Apr 2023, Lung-RADS 2, stable RUL nodules. Follow up in 1 year - work on smoking cessation - Pt has not smoking since her last hospital visit on 06/14/24 Assessment & Plan (06/02/2024 5:40 PM EST): [...] and nutritional supplementation Abnormal liver function 01/28/2017 10/10/2023 Assessment & Plan (09/11/2023 5:49 AM EDT): - elevated AP - most recent abd CT did not reveal liver pathology. Encounters Date Type Department Care Team Description 07/03/2024 9:30 AM EST Office Visit [address] [address] Lurdes Lo MD Asthma-COPD overlap syndrome (CMS/HCC) (Primary Dx); Tobacco dependence; Positive CAROLIN (antinuclear antibody); Rheumatoid factor positive with cyclic citrullinated peptide (CCP) antibody negative; Polyarthralgia; Osteoporosis, unspecified osteoporosis type, unspecified pathological fracture presence; Hypokalemia; Difficulty maintaining weight; Routine screening for STI (sexually transmitted infection); Encounter for immunization 07/03/2024 [place] [address] Sendy Talamantes, RN Results 07/03/2024 Travel 06/27/[address] [address] Lurdes Lo MD Chart Prep 06/19/2024 9:15 [place] [address] Makayla Knott MD Fibromyalgia (Primary Dx); Spasm of left trapezius muscle 06/19/2024 Travel 06/19/[address] [address] Lurdes Lo MD 06/15/2024 Patient Outreach [address] [address] Lurdes Lo MD Care Coordination; SDOH Concerns (C3CM/CHW Cindy Doll, TC program enrollment, SDOH assessment ) 06/15/2024 Patient Outreach [address] [address] Lurdes Lo MD Transition Of Care (Tcm) (HDF scheduled and SDOH screening positive and Tobacco screening positive) 06/12/2024 1:20 PM EST Office Visit [facility] [address] [place] [phone] Vanessa Davis MD Hypoxia (Primary Dx); Asthma-COPD overlap syndrome (CMS/HCC); Acute cough; Shortness of breath 06/12/2024 Travel 06/07/[address] [address] Kiarra Carney, EDGAR 06/07/2024 Orders Only [address] [address] Lurdes Lo MD Polyarthralgia (Primary Dx); Elevated antinuclear antibody (CAROLIN) level; Rheumatoid factor positive with cyclic citrullinated peptide (CCP) antibody negative 06/06/[address] [address] Sandee Doll [place] lung screening 06/02/[address] [address] Lurdes Lo MD 05/29/2024 1:15 PM EST Office Visit [address] [address] Lurdes Lo MD Osteoporosis, unspecified osteoporosis type, unspecified pathological fracture presence (Primary Dx); Fibromyalgia; Tobacco dependence; Depressive disorder; Difficulty maintaining weight; Screening for lipid disorders; Screening for diabetes mellitus; Vitamin D deficiency; Asthma-COPD overlap syndrome (CMS/HCC); Trigger ring finger of left hand; Polyarthralgia; Chest pain, unspecified type 05/29/2024 Travel 05/25/[address] [address] Sandee Doll [place] chart prep 05/06/2024 Refill [facility] [address] [place], [place] [phone] Lurdes Lo MD Dyspepsia 04/12/2024 Refill [facility] [address] [place], [place] [phone] Lurdes Lo MD from Last 3 Months Immunizations Name Administration Dates Next Due Hep A, Adult 07/03/2024 Hep B, adult 07/03/2024 HepB-CpG 09/07/2023 Influenza injectable quadriv alent IIV4 [...] Sign Reading Time Taken Comments Blood Pressure 106/61 07/03/2024 9:38 AM EST Pulse 91 07/03/2024 9:38 AM EST Temperature 36.1 ??C (96.9 ??F) 07/03/2024 9:38 AM ES T Respiratory Rate 15 07/03/2024 9:38 AM EST Oxygen Saturation 98% 07/03/2024 9:38 AM EST Inhaled Oxygen Concentration - - Weight 51.3 kg (113 lb) 07/03/2024 9:38 AM EST Height 160 cm (5' 3 ) 06/19/2024 9:12 AM EST Body Mass Index 20.02 06/19/2024 9:12 AM EST Plan of Treatment Upcoming Encounters Date Type Department Care Team (Late st Contact Info) Description 07/18/2024 3:00 PM EDT Office Visit [facility] [address] [place] [address] Jayashree Kellogg DDS [address] [place] [address] 07/24/2024 9:15 AM EDT Procedure Visit [facility] [address] [place] [address] Makayla Knott MD [address] [place] [address] Health Maintenance Due Date Last Done Comments CT Colonography 1967 FIT DNA/Cologuard 1967 FIT 1967 FOBT 1967 HIV Screening 1965 Sigmoidoscopy 1967 Hepatitis C Screening 1985 Pap Smear 01/30/1988 Cervical Cancer Screening 1997 HPV/Cotest 1997 Dental X-Ray: Full Mouth 01/05/2019 01/05/2016 Dental X-Ray: Bitewings 09/01/2022 09/01/19, 06/19/2019, 05/03/2018, Additional history exists Dental Prophylaxis 05/28/2023 11/24/2022, 1 , 05/13/2016 Dental Oral Exam 08/24/2023 02/21/2023, , 02/09/2022, Additional history exists Zoster Vaccines (2 of 2) 11/02/2023 09/07/2023 COVID-19 Vaccine (3 - season) 2024 10/02/2020, 09/04/2020 Lung Cancer Screening 04/29/2024 04/29/2023 Hepatitis B Vaccines (3 of 3 - 19+ 3-dose series) 08/28/2024 07/03/2024, 09/07/2023 Hepatitis A Vaccines (2 of 2 - Risk 2-dose series) 12/31/2024 07/03/2024 Alcohol/Substance Use Screening 02/12/2025 02/13/2024 Depression Screening 02/12/2025 02/13/2024, 02/13/20 SDOH Screening 06/15/2025 06/15/2024 Tobacco Screening 06/22/2025 06/22/2024 Colonoscopy 07/15/2025 07/15/2020 Colorectal Cancer Screening 07/15/2025 Mammogram 09/26/2025 09/27/2023 Lipid Panel 05/30/2029 07/03/2024, 05/10, 11/25/2022 DTaP/Tdap/Td Vaccines (2 - Td or [...] etc) Tobacco Use No Ahmet Lombardo, StellaD Procedures Procedure Name Priority Date/Time Associated Diagnosis Comments MAGNESIUM Routine 07/03/2024 10:56 AM EST Hypokalemia HEMOGLOBIN A1C Routine 07/03/2024 10:56 AM EST Elevated blood sugar CBC WITH AUTO DIFFERENTIAL Routine 07/03/2024 10:56 AM EST Leukocytosis, unspecified type LIPID PANEL WITH REFLEX TO DIRECT LDL Routine 07/03/2024 10:56 AM EST Pure hypercholesterolemia COMPREHENSIVE METABOLIC PANEL Routine 07/03/2024 10:56 AM EST Pure hypercholesterolemia GENERAL Routine 06/19/2024 9:36 AM EST Spasm of left trapezius muscle CT CHEST WO CONTRAST Routine 06/12/2024 4:06 PM EST POCT INFLUENZA A (ID NOW RAPID MOLECULAR) [...] PATTERN Routine 05/30/2024 8:35 AM EST Fibromyalgia BI MAMMOGRAM SCREENING TOMOSYNTHESIS BILATERAL Routine 09/27/2023 12:26 PM EDT Breast cancer screening by mammogram LDCT LUNG SCREENING Routine 04/29/2023 10:15 AM EST PERIODIC ORAL EVALUATION - ESTABLISHED PATIENT Routine 02/21/2023 3:30 PM EDT Encounter for dental examination Dental caries PROPHYLAXIS - ADULT Routine 11/24/2022 3 :00 PM EDT BITEWING - SINGLE RADIOGRAPHIC IMAGE Routine 08/31/2021 12:00 AM EDT HM COLONOSCOPY Routine 07/15/2020 INTRAORAL - COMPLETE SERIES OF RADIOGRAPHIC IMAGES Routine 01/05/2016 12:00 AM EDT from Last 3 Months or Most Recently Relevant to Health Maintenance Results * (ABNORMAL) Lipid Panel with Reflex to Direct LDL (07/03/2024 10:56 AM EST) Only the most recent of2 resultswithin the time period is included. Triglycerides 88 <150 mg/dL [facility] Comment:Desirable Triglyceri de: less than 150 mg/dLBorderline High Triglyceride 150-199 mg/dLHigh Triglyceride: 200-499 mg/dLVery High Triglyceride: greater than or equal to 5OO mg/dL Cholesterol 241(H) <200 mg/dL [facility] Comment:Desirable Cholestero l: less than 200 mg/dLBorderline High Cholesterol: 200-239 mg/dLHigh Cholesterol: greater than 239 mg/dL LDL Cholesterol Calculated 138(H) <100 mg/dL [facility] Comment:Desirable LDL: less than 100 mg/dLNear Optimal/Above Optimal LDL: 110- 129 mg/dLBorderline High LDL: 130-159 mg/dLHigh LDL: 160-189 mg/dLVery High LDL: greater than or equal to 190 mg/dL HDL Cholesterol 86 >40 mg/dL [facility] Comment:Desirable HDL: great er than 40 mg/dL Note: This HDL assay may give artificially low results in patients with liver disease. Blood 07/03/2024 10:5 6 AM EST 07/03/2024 11:30 AM EST us Lurdes Lo MD LAB BLOOD ORDERABLES Final Resul t [facility] [address] [place] [phone] * (ABNORMAL) CBC auto differential (07/03/2024 10:56 AM EST) Only the most recent of2 resultswithin the time period is included. White Blood Count 6.3 4.8 - 10.8 X10*3/uL [facility] Red Blood Count 3.92(L) 4.20 - 5.50 X10*6/uL [facility] Hemoglobin 12.6 12.0 - 16.0 g/dl [facility] Hematocrit 38.2 37.0 - 47.0 % [facility] Mean Corpuscular Volume 97.4 80.0 - 98.0 fL [facility] Mean Corpuscular Hemoglobin 32.1 27.0 - 33.0 pg [facility] Mean Corpuscular HGB Conc 33.0 31.0 - 35.0 g/dl [facility] Red Cell Distribution Width 14.2 11.0 - 16.0 % [facility] Platelet Count 246 160 - 400 X10*3/uL [facility] Mean Platelet Volume 10.5 9.4 - 12.3 fL [facility] Neutrophils Percent Auto 59.2 45 - 73 % [facility] Imm Gran Pct Auto 0.2 0.0 - 0.4 % [facility] Lymphocytes Percent Auto 29.1 20 - 40 % [facility] Monocytes Percent Auto 8.8 2 - 11 % [facility] Eosinophils Percent Auto 2.1 0 - 4 % [facility] Basophils Percent Auto 0.6 0 - 2 % [facility] NRBC Pct Auto 0.0 0.0 - 0.2 /100WBC [facility] Neutrophils Absolute Auto 3.7 2.0 - 8.3 x10*3/uL [facility] Imm Gran Abs Auto 0.01 0.00 - 0.03 X10*3/uL [facility] Lymphocytes Absolute Auto 1.8 1.2 - 4.9 X10*3/uL [facility] Monocytes Absolute Auto 0.6 0.1 - 1.2 X10*3/uL [facility] Eosinophils Absolute Auto 0.1 0.0 - 0.4 X10*3/uL [facility] Basophils Absolute Auto 0.0 0.0 - 0.2 X10*3/uL [facility] NRBC Abs Auto 0.000 0.0 - 0.012 X10*3/uL [facility] Blood Venous blood specimen / Unknown 07/03/2024 10:56 AM EST 07/03/2024 11:30 AM EST us Lurdes Lo MD LAB BLOOD ORDERABLES Final Resul t [facility] [address] [place] [phone] * Magnesium (07/03/2024 10:56 AM EST) Magnesium 2.1 1.6 - 2.6 mg/dL [facility] Blood Venous blood specimen / Unknown 07/03/2024 10:56 AM EST 07/03/2024 11:30 AM EST Lurdes Lo MD LAB BLOOD ORDERABLES Final Resul t Performing Organization Address [facility] Co de Phone Number [facility] [address] [place] [address] [phone] * Hemoglobin A1c (07/03/2024 10:56 AM EST) Only the most recent of2 resultswithin the time period is included. Hemoglobin A1c 5.4 <6.0 % [facility] Comment:Hemoglobin A1C Refer ence Range Adults: 4.8 - 6.0 % Non diabetic: < 6.0 % Goal: < 7.0 %Additional Action Suggested: > 8.0 %Note: Hemoglobin A1c results are invalid for patients with abnormal amounts of HbF. Blood transfusions may impact the HbA1c concentration in the patient sample. Estimated Average Glucose 108 mg/dL [facility] Comment:eAG = Estimated ave rage glucose which is %A1C expressed asaverage glucose, using the formula of the U6P-YuhndmsTqyomov Glucose study (ADAG), Diabetes Care, Vol.31,#8,Dec. 2007 Blood Venous blood specimen / Unknown 07/03/2024 10:56 AM EST 07/03/2024 11:30 AM EST Lurdes Lo MD LAB BLOOD ORDERABLES Final Resul t Performing Organization Address City/[facility]/ZIP Co de Phone Number [facility] [address] [place] [address] [phone] * (ABNORMAL) Comprehensive Metabolic Panel (07/03/2024 10:56 AM EST) Only the most recent of2 resultswithin the time period is included. Sodium 142 135 - 145 mmol/L [facility] Potassium 4.1 3.3 - 5.1 mmol/L [facility] Chloride 106 96 - 108 mmol/L [facility] Carbon Dioxide 29 22 - 29 mmol/L [facility] Anion Gap 11(L) 12 - 20 [facility] Urea Nitrogen (BUN) 10 9 - 16 mg/dL [facility] Creatinine, Serum 0.64 0.5 - 1.4 mg/dL [facility] Estimated Glomerular Filt Rate >60 [facility] Comment:Chronic Kidney Disea se: Estimated GFR < 60 mL/min/[id number] Kidney Disease: Estimated GFR < 15 mL/min/1.73m2 Glucose 86 60 - 115 mg/dL [facility] Calcium 9.5 8.4 - 10.2 mg/dL [facility] Bilirubin, Total 0.4 0.0 - 1.0 mg/dL [facility] Aspartate Amino Transferase 43(H) 5 - 31 U/L [facility] Alanine Aminotransferase 78(H) 0 - 31 U/L [facility] Total Protein 7.3 6.5 - 8.0 g/dL [facility] Albumin Level 4.0 3.5 - 5.0 g/dL [facility] Alkaline Phosphatase 132(H) 39 - 117 U/L [facility] Blood Venous blood specimen / Unknown 07/03/2024 10:56 AM EST 07/03/2024 11:30 AM EST us Lurdes Lo MD LAB BLOOD ORDERABLES Final Resul t Performing Organization Address City/State/[facility] Co de Phone Number [facility] [address] [place] [phone] * General (06/19/2024 9:36 AM EST) Narrative [...] understanding, and wants to proceed: Yes ?? Marianna protocol: ??Procedure explained and questions answered to [...] MD IN CLINIC/BEDSIDE ORDERABLES F inal Result * CT Chest w/o Contrast (06/12/2024 4:06 PM EST) Anatomical Region Laterality Modality Body, Chest Computed Tomogra phy 06/12/2024 4:06 PM EST Narrative 06/12/2024 5:01 PM EST ? [facility] ?[address] ?[place] [address] ? CT Scan Report ? Signed ? Patient: Robert Curtis,Leda ?MR# ?? : [id number] ? : 1965 ?Acct:[id number] ? Age/Sex: 59 / F ?ADM Date: 06/12/ ? Loc: [facility] ?476-1 ? Attending Dr: Augustin Urbina MD ? Ordering Physician: Augustin Urbina MD ?? Date of Service: 06/12/24 ?? Procedure(s): CT chest wo IV con ?? Accession Number(s): [id number] ? cc: Augustin Urbina MD; Lurdes Lo MD ? Report Number: ?? [id number]: Total DLP = ??149.00 mGy-cm ?? EXAMINATION: [...] ?? DLP: 149 mGy/cm. ? FINDINGS: ? SECURITY INTELLIGENCE ANALYST: Hyperinflated lungs. ? LUNGS: There is mild [...] signed by Cirilo Quezada MD in OV> ?06/12/241657 ? DD/ 1606 ? TD/TT: 06/12/24 1620 ? Continuous Improvement Consultant: MSM ? Procedure Note Donfrancia, Image - 06/12/[address] [address] [address] Scan Report Signed Patient: Leda GudinoMR# : [id number] : 1965Acct:[id number] Age/Sex: 59 / FADM Date: 06/12/24 Loc: [facility] 476-[address]: Augustin Urbina MD Ordering Physician: Augustin Urbina MD Date of Service: 06/12/24 Procedure(s): CT chest wo IV con Accession Number(s): [id number] cc: Augustin Urbina MD; Lurdes Lo MD Report Number: [id number]: Total DLP = 149.00 mGy-cm EXAMINATION: CT [...] iterative reconstruction technique DLP: 149 mGy/cm. FINDINGS: SECURITY INTELLIGENCE ANALYST: Hyperinflated lungs. LUNGS: There is mild centrilobular [...] by: Cirilo Quezada MD 06/12/2024 04:58 PM EST Dictated By: Cirilo Quezada MD Signed By: <Electronically signed by Cirilo Quezada MD in OV> 06/12/24 1658 DD/ 1606 TD/TT: 06/12/24 1620 Continuous Improvement Consultant: [facility] External Provider IMG CT PROCEDURES Final Result * POCT Rapid Influenza B ALVARES ID NOW (06/12/2024 11:09 AM EST) Influenza B Negative Negative, Indeterminate [facility] Swab 06/12/2024 11:0 9 AM EST Vanessa Davis MD POINT OF CARE TEST ENTER/E DIT ORDERABLES Final Result [facility] [address] [place] [phone] * POCT Rapid Influenza A ALVARES ID NOW (06/12/2024 11:09 AM EST) Pathologist [facility] Influenza A Negative Negative, Indeterminate [facility] Swab 06/12/2024 11:0 9 AM EST Vanessa Davis MD POINT OF CARE TEST ENTER/E DIT ORDERABLES Final Result Performing Organization Address [facility]/ZIP Co de Phone Number [facility] [address] [place] [phone] * POCT Rapid Covid-19 BinaxNOW (06/12/2024 11:09 AM EST) [facility] Rapid COVID Ag Negative [facility] Nares 06/12/2024 11:0 9 AM EST Vanessa Davis MD POINT OF CARE TEST ENTER/E DIT ORDERABLES Final Result Performing Organization Address [facility] Co de Phone Number [facility] [address] [place], [place] [phone] * ECG 12 lead (06/02/2024 6:01 PM EST) Narrative Lurdes Lo MD - 06/02/2024 6:01 PM EST Sinus rhythm. ??Normal MO, QRS, and QTc. ??Normal axis. ??No acute ischemic ST-T changes. ??No hypertrophy. Lurdes Lo MD ECG ORDERABLES Final Result * Vitamin D, 25-Hydroxy, Total, Immunoassay (05/30/2024 8:35 AM EST) [facility] Vitamin D 25-OH Total 43.0 >30 ng/mL [facility] Comment:Health Based Referen ce Values*< 20 ng/mL Swramufll51-46 ng/mL Insufficient> 30 ng/mL Sufficient*Maxwell BATRES. N [...] ORDERABLES Final Resul t Performing Organization Address [facility]/ZIP Co de Phone Number [facility] [address] [place] [phone] * TSH with Reflex to Free T4 (05/30/2024 8:35 AM EST) TSH reflex Free T4 1.95 0.32 - 4.0 uIU/mL [facility] Blood 05/30/2024 8:35 AM EST 05/30/2024 12:05 PM EST Lurdes Lo MD LAB BLOOD ORDERABLES Final Resul t Performing Organization Address [facility] Co de Phone Number [facility] [address] [place] [phone] * Cyclic Citrullinated Peptide (CCP) Antibody (IgG) (05/30/2024 8:35 AM EST) Cyclic Citrullinated Peptide <16 UNITS [facility] Comment:Reference RangeNegat jhony: <20Weak Positive: 20-39Moderate Positive: 40-59Strong Positive: >59THIS TEST WAS PERFORMED AT:[facility] [place] [id number] LOWRY MD Blood Venous blood specimen / Unknown 05/30/2024 8:35 AM EST 05/30/2024 12:05 PM EST us Lurdes Lo MD LAB BLOOD ORDERABLES Final Resul t Performing Organization Address [facility] Co de Phone Number [facility] [address] [place] [phone] * Sed Rate by Modified Ebenergren (05/30/2024 8:35 AM EST) Erythrocyte Sedimentation Rate 8 0 - 20 MM/HR [facility] Comment:Patients with polycy themia and many hemoglobin abnormalitiesmay have depressed sed rates whereas patients with anemiamay have elevated sed rates. Blood Venous blood specimen / Unknown 05/30/2024 8:35 AM EST 05/30/2024 12:05 PM EST us Lurdes Lo MD LAB BLOOD ORDERABLES Final Resul t Performing Organization Address [facility] Co de Phone Number [facility] [address] [place] [address] [phone] * (ABNORMAL) Rheumatoid Factor (05/30/2024 8:35 AM EST) Pathologist [facility] Rheumatoid Factor 23.1(H) <15.0 IU/mL [facility] Blood Venous blood specimen / Unknown 05/30/2024 8:35 AM EST 05/30/2024 12:05 PM EST Lurdes Lo MD LAB BLOOD ORDERABLES Final Resul t Performing Organization Address City/[facility] Co de Phone Number [facility] [address] [place] [phone] * C-reactive Protein (05/30/2024 8:35 AM EST) C Reactive Protein 0.13 < or = 0.50 mg/dL [facility] Blood Venous blood specimen / Unknown 05/30/2024 8:35 AM EST 05/30/2024 12:05 PM EST Lrudes Lo MD LAB BLOOD ORDERABLES Final Resul t [facility] [address] [place] [phone] * (ABNORMAL) CAROLIN Screen,IFA, with Reflex to Titer and Pattern (05/30/2024 8:35 AM EST) Anti Nuclear Antibody Screen POSITIVE (A) NEGATIVE [facility] Comment:CAROLIN IFA is a first l ine screen for detecting thepresence of up to approximately 150 autoantibodies invarious autoimmune diseases. A positive CAROLIN IFA resultis suggestive of autoimmune disease and reflexes totiter and pattern. Further laboratory testing may beconsidered if clinically indicated.For additional information, please refer tohttp://education.[employer]/faq/NTX617(This link is being provided for informational/educational purposes only.) CAROLIN Titer 1:320(A) titer [facility] Comment:Reference Range <1: 40 Negative 1:40-1:80 Low Antibody Level >1:80 Elevated Antibody Level CAROLIN Pattern (A) [facility] Comment:Nuclear, Dense Fine Speckled Abnormal Flag: ADense fine speckled pattern is seen in normalindividuals and rarely associated with systemic lupuserythematosis (SLE), Sjogren's syndrome and systemicsclerosis.AC-2: Dense Fine SpeckledInternational Consensus on CAROLIN Patterns(https://doi.org/10.1515/vmwh-1470-7076)THIS TEST WAS PERFORMED AT:[facility] [place] [id number] LOWRY MD CAROLIN TITER 2 (REF LAB) [facility] CAROLIN Pattern 2 [facility] CAROLIN TITER 3 [facility] CAROLIN PATTERN 3 [facility] Blood Venous blood specimen / Unknown 05/30/2024 8:35 AM EST 05/30/2024 12:05 PM EST Lurdes Lo MD LAB BLOOD ORDERABLES Final Resul t [facility] [address] [place] [phone] * BI Mammogram Screening Tomosynthesis Bilateral (09/27/2023 12:26 PM EDT) Anatomical Region Laterality Modality Breast Bilateral Mammography 09/27/2023 12:2 6 PM EDT Narrative 10/28/2023 7:07 AM EDT ? [facility] ? [address] ?[place] [address] ? Mammography Report ? Signed ? Patient: Leda Gudino ?MR# ?? : [id number] ? : 1965 ?Acct:[id number] ? Age/Sex: 58 / F ?ADM Date: 09/27/23 ? Loc: HO.MAMMO ? Attending Dr: Lurdes Lo MD ? Ordering Physician: Lurdes Lo MD ?Results: 1Negative ? Date of Service: 09/27/23 ?Follow Up: 1 Year From Orig ?? inal Mammogram ? Procedure(s): MM tomosynthesis screening BI ?? Accession Number(s): [id number] ? cc: Lurdes Lo MD ? EXAMINATION: [...] 0704 ? DD/ 1226 ? TD/TT: ? Continuous Improvement Consultant: ? Procedure Note Donaydeninterpreter, Image - 10/28/2023 [facility] [address] [place] [address] Mammography Report Signed Patient: Leda GudinoMR# : [id number] : 1965Acct:[id number] Age/Sex: 58 / FADM Date: 09/27/23 Loc: VÍCTOR Attending Dr: Lurdes Lo MD Ordering Physician: Lurdes Loults: 1Negative Date of Service: 09/27/23Follow Up: 1 Year From Orig inal Mammogram Procedure(s): MM tomosynthesis screening BI Accession Number(s): [id number] cc: Lurdes Lo MD EXAMINATION: MM SCREENING [...] in OV> 10/28/23 0704 DD/ 1226 TD/TT: Continuous Improvement Consultant: Lurdes Lo MD IMG BI PROCEDURES Final Result * CT Lung Screening Low dose (04/29/2023 10:15 AM EST) Anatomical Region Laterality Modality Lung Computed Tomogra phy 04/29/2023 10:1 5 AM EST Narrative 05/13/2023 2:52 PM EST ? [facility] ?[address] ?[place] [address] ? CT Scan Report ? Signed ? Patient: Jones Ever,Leda ?MR# ?? : [id number] ? : 1965 ?Acct:[id number] ? Age/Sex: 58 / F ?ADM Date: 12/22/23 ? Loc: HO.CT ? Attending Dr: Maxine Matos PA-C ? Ordering Physician: Maxine Matos PA-C ?? Date of Service: 04/29/23 ?? Procedure(s): CT lung screening ?? Accession Number(s): [id number] ? cc: Maxine Matos PA-C; Lurdes Lo [...] 1449 ? DD/ 1015 ? TD/TT: ? Continuous Improvement Consultant: ? Procedure Note Felishater, Image - 05/13/[address] [place] [address] [address] Scan Report Signed Patient: Leda GudinoMR# : [id number] : 1965Acct:[id number] Age/Sex: 58 / FADM Date: 04/29/23 Loc: HO.CT Attending Dr: Maxine Matos PA-C Ordering Physician: Maxine Matos PA-C Date of Service: 04/29/23 Procedure(s): CT lung screening Accession Number(s): [id number] cc: Maxine Matos PA-C; Lurdes Lo MD [...] in OV> 05/13/23 1449 DD/ 1015 TD/TT: Continuous Improvement Consultant: [facility] External Provider IMG CT PROCEDURES Final Result * Colonoscopy (07/15/2020) Colonoscopy Normal Normal 07/15/2020 [facility] Unassigned Pcp HEALTH MAINTENANCE Edited Result - Final from Last 3 Months or Most Recently Relevant to Health Maintenance Insurance Care Teams Performance Improvement Manager Relationship Specialty Start Date End Date Lurdes Lo MD [address] [place], [place] [phone] PCP - General Family Medicine 08/09/22 Ahmet Lombardo, StellaD [address] [place], [place] [phone] Pharmacist Internal Medicine 09/03/22 Deepti Boo Business Enterprise OfficerContact Assembler 06/13/23 [facility] 03/05/24
--- OUTSIDE RECORDS SUMMARY | 2024-07-03 13:09 | XMS_ITS | Encounter Summary ---
Author Organization [employer] Address [address] [facility] 7t [place] [address] Care Team Providers Care Machine Heel Sprayer Name Role Phone Lurdes Lo MD Primary Care Provider [phone] Ahmet Lombardo PharmD Unavailable [phone] Reason for Visit * Reason Onset Date Comments Appointment 01/05/2023 Encounter Details Date Type Department Care Team (Late st Contact Info) Description 01/05/2023 Telephone [facility] [address] [place] [address] Jayashree Kellogg DDS [address] [place] [address] Appointment Social History Tobacco Use Types Packs/Day [...] 3:00 PM EDT Office Visit [facility] [address] [place] [address] Jayashree Kellogg DDS [address] [place] [address] 07/24/2024 9:15 AM EDT Procedure Visit [facility] [address] [place] [address] Makayla Knott MD [address] [place] [address] documented as of this encounter Goals Goal [...] documented as of this encounter Care Teams Machine Heel Sprayer Relationship Specialty Start Date End Date Lurdes Lo MD [address] [place] [phone] PCP - General Family Medicine 08/09/22 Ahmet Lombardo, StellaD [address] [place] [address] Pharmacist Internal Medicine 09/03/22 Deepti Boo Gas Operations SuperintendentPropellant Charge Zone Assembler 06/13/23 Home Care [facility] 03/05/24 documented as of this encounter
--- OUTSIDE RECORDS SUMMARY | 2024-07-03 13:09 | XMS_ITS | Encounter Summary ---
Author Organization [employer] Address [address] [facility] [address]t [place] [address] Care Team Providers Care Food Production Associate Name Role Phone Lurdes Lo MD Primary Care Provider [phone] Ahmet Lombardo PharmD Unavailable [phone] Encounter Details Date Type Department Care Team (Latest Contact Info) Description 07/03/2024 9:30 AM EST Office Visit [facility] [address] [place], [place] [phone] Lurdes Lo MD [address] [place], [place] [phone] Asthma-COPD overlap syndrome (CMS/HCC) (Primary Dx); Tobacco dependence; Positive CAROLIN (antinuclear antibody); Rheumatoid factor positive with cyclic citrullinated peptide (CCP) antibody negative; Polyarthralgia; Osteoporosis, unspecified osteoporosis type, unspecified pathological fracture presence; Hypokalemia; Difficulty maintaining weight; Routine screening for STI (sexually transmitted infection); Encounter for immunization Social History Tobacco Use Types Packs/Day Years [...] (113 lb) 07/03/2024 9:38 AM EST Height - - Body Mass Index 20.02 06/19/2024 9:12 AM EST documented in this encounter Miscellaneous Notes * Assessment & Plan Note - Eliza Pérez MA - 07/03/2024 8:53 AM ESTAssociated Problem(s): Tobacco dependence - 30 pack year - last chest CT in Apr 2023, Lung-RADS 2, stable RUL nodules. Follow up in 1 year - work on smoking cessation - Pt has not smoking since her last hospital visit on 06/14/24 * Assessment & Plan Note - Eliza Pérez MA - 07/03/2024 8:53 AM ESTAssociated Problem(s): Polyarthralgia - history of CAROLIN 1:160 in 2018 - seen by thermocouple tester. Normal ESR and CRP. Attributed to fibromyalgia - will check lab again * Assessment & Plan Note - Eliza Pérez MA - 07/03/2024 8:53 AM ESTAssociated Problem(s): Osteoporosis - followed by [facility], last seen in Dec 2022 - [...] nutritional supplement Advised to follow up with [facility] Endo. * Assessment & Plan Note - Eliza Pérez MA - 07/03/2024 8:53 AM ESTAssociated Problem(s): Asthma-COPD overlap syndrome (CMS/HCC) - followed by [facility] pulmonology and lung cancer screening program, last [...] prn - continue working on smoking cessation documented in this encounter Plan of Treatment Upcoming Encounters Date Type Department Care Team (Late st Contact Info) Description 07/18/2024 3:00 PM EDT Office Visit [facility] ADULT [facility] [address] [place], [place] [phone] Altamirano-Lugo, Jayashree, DDS [address] [place], [place] [phone] 07/24/2024 9:15 AM EDT Procedure Visit [facility] [address] [place], [place] [phone] Makayla Knott MD [address] [place], [place] [phone] Scheduled Orders Name Type Priority Associated Diagnoses Orde r Schedule Basic Metabolic Panel Lab Routine Hypokalemia Expected: 07/03/2024 (Approximate), Expires: 07/03/2025 HIV-1/2 Antigen and Antibodies, Fourth Generation, with Reflexes Lab Routine Routine screening for STI (sexually transmitted infection) Expected: 07/03/2024 (Approximate), Expires: 07/03/2025 Hepatitis C Antibody with Reflex to HCV, RNA, Quantitative, Real-Time PCR Lab Routine Routine screening for STI (sexually transmitted infection) Expected: 07/03/2024 (Approximate), Expires: 07/03/2025 documented as of this encounter Goals Goal Patient Goal Type Associated Problems Recent Progress Patient-Stated? Author Quit using tobacco (cigarettes, smokeless, etc) Tobacco Use Ahmet Villareal, PharmD documented as of this encounter Procedures Procedure Name Priority Date/Time Associated Diagnosis Comments MAGNESIUM Routine 07/03/2024 10:56 AM EST Hypokalemia documented in this encounter Results * Magnesium (07/03/2024 10:56 AM EST) Magnesium 2.1 1.6 - 2.6 mg/dL [facility] Blood Venous blood specimen / Unknown 07/03/2024 10:56 AM EST 07/03/2024 11:30 AM EST Lurdes Lo MD LAB BLOOD ORDERABLES Final Resul t [facility] [address] [place] [phone] documented in this encounter Visit Diagnoses Diagnosis Asthma-COPD overlap syndrome (CMS/HCC)- Primary Tobacco dependence Tobacco use disorder Positive CAROLIN (antinuclear antibody) Other and unspecified nonspecific immunological findings Rheumatoid factor positive with cyclic citrullinated peptide (CCP) antibody negative Polyarthralgia Pain in joint, multiple sites Osteoporosis, unspecified osteoporosis type, unspecified pathological fracture presence Hypokalemia Hypopotassemia Difficulty maintaining weight Routine screening for STI (sexually transmitted infection) Screening examination for venereal disease Encounter for immunization documented in this encounter Additional Health Concerns Assessment Noted Time PHQ-9 Depression Total Score: 8 02/13/20 24 11:13 AM EDT documented as of this encounter Care Teams Food Production Associate Relationship Specialty Start Date End Date Lurdes Lo MD [address] [place] [address] PCP - General Family Medicine 08/09/22 Ahmet Lombardo, Ladonna [address] [place] [address] Pharmacist Internal Medicine 09/03/22 Deepti Boo Dry MixerBlacksmith Farm 06/13/23 Home [facility] 03/05/24 documented as of this encounter
--- OUTSIDE RECORDS SUMMARY | 2024-07-03 13:10 | XMS_ITS | Encounter Summary ---
Author Organization [employer] Address [address] [facility] 7t [place] [address] Care Team Providers Care Jewel Gauger Name Role Phone Lurdes Lo MD Primary Care Provider Ahmet Lombardo PharmD Unavailable [phone] Encounter Details Date Type Department Care Team (Late st Contact Info) Description 11/01/2022 Abstract [facility] [address] [place] [address] Jayashree Kellogg DDS [address] [place] [address] Social History Tobacco Use Types Packs/Day Years [...] Description 07/18/2024 3:00 PM EDT Office Visit [facility] [address] [place], [place] [phone] Jayashree Kellogg, DDS [address] [place] [address] 07/24/2024 9:15 AM EDT Procedure Visit [facility] [address] [place] [address] Makayla Knott MD [address] [place] [address] documented as of this encounter Goals Goal Patient Goal Type Associated Problems Recent Progress Patient-Stated? Author Quit using tobacco (cigarettes, smokeless, etc) Tobacco Use No Ahmet Lombardo, PharmD documented as of this encounter Visit Diagnoses Not on filedocumented in this encounter Care Teams Jewel Gauger Relationship Specialty Start Date End Date Lurdes Lo MD [address] [place] [address] [phone] PCP - General Family Medicine 08/09/22 Ahmet Lombardo, PharmD [address] [place] [phone] Pharmacist Internal Medicine 09/03/22 Deepti Boo Software Maintenance EngineerNumerical Control Programmer 06/13/23 [facility] 03/05/24 documented as of this encounter
--- OUTSIDE RECORDS SUMMARY | 2024-07-03 13:10 | XMS_ITS | Encounter Summary ---
Author Organization [employer] Address [address] [facility] 7t [place] [address] Care Team Providers Care Rice Farmer Name Role Phone Lurdes Lo MD Primary Care Provider [phone] Ahmet Lombardo PharmD Unavailable [phone] Reason for Visit * Reason Onset Date Comments Results 07/03/2024 Encounter Details Date Type Department Care Team ([facility] st Contact Info) Description 07/03/2024 Telephone [facility] [address] [place], [place] [phone] Sendy Talamantes, RN [address] [place], [place] [phone] Results Social History Tobacco Use Types Packs/Day Years [...] encounter Miscellaneous Notes * Telephone Encounter - Sendy Talamantes RN - 07/03/2024 1:04 PM EST Per Shaser, labs below are being run. Pending results * Telephone Encounter - Sendy Talamantes RN - 07/03/2024 1:04 PM EST ----- Message from Lurdes Lo MD sent at 07/03/2024 12:25 PM EST ----- Please call [facility] lab. I ordered BMP, Mg, Hep C, and HIV. Please make sure they did those lab, not this one. Thank you documented in this encounter Plan of Treatment Upcoming Encounters Date Type Department Care Team (Late st Contact Info) Description 07/18/2024 3:00 PM EDT Office Visit [facility] ADULT DENTAL [address] [place] [address] Jayashree Kellogg, DDS [address] [place] [address] 07/24/2024 9:15 AM EDT Procedure Visit [facility] [address] [place] [address] Makayla Knott MD [address] [place], [place] [phone] documented as of this encounter Goals Goal [...] documented as of this encounter Care Teams Rice Farmer Relationship Specialty Start Date End Date Lurdes Lo MD [address] [place] [phone] PCP - General Family Medicine 08/09/22 Ahmet Lombardo, PharmD [address] [place] [phone] Pharmacist Internal Medicine 09/03/22 Deepti Boo Information ManagerPig Casting Machine Operator 06/13/23 Home [facility] 03/05/24 documented as of this encounter
== END 2024-07-03 10:52 | disposition home or self-care (01) ==
LOC: HO.HHCL 10:51
PROVIDERS: Visit Provider Family Medicine
DX: R73.9 Hyperglycemia, unspecified (principal); E78.00 Pure hypercholesterolemia, unspecified; E87.6 Hypokalemia; D72.829 Elevated white blood cell count, unspecified; Z11.3 Encounter for screening for infections with a predominantly sexual mode of transmission
CPT/HCPCS: 36415; 80053; 80061; 83036; 83735; 85025; 86803; 87389

== ENCOUNTER 2024-11-27 09:30 | Outpatient (REF) | payer MEDICAID, SELFPAY ==
--- NOTE | 2024-11-27 09:33 | EMG_ITS ---
Please see the attached neurophysiology report MTDD
--- OUTSIDE RECORDS SUMMARY | 2024-11-27 10:07 | XMS_ITS | Encounter Summary ---
Author Organization [employer] Address [address] [place] [address] 7t [place] [address] Care Team Providers Care Snow Plow Tractor Operator Name Role Phone Lurdes Lo MD Primary Care Provider [phone] Ahmet Lombardo PharmD Unavailable [phone] Reason for Referral * Consultation (Urgent) - Closed Specialty Diagnoses / Procedures Referred By Contac t Referred To Contact Diagnoses Asthma-COPD overlap syndrome (CMS/HCC) Tobacco dependence Lurdes Lo MD [address] [place] [address] Phone: tel: fax: [facility] [address] [place] [address] Phone: tel: fax: Referral ID Status Reason Start Date Expiration Date V isits Requested Visits Authorized [id number] Closed Specialty Services Required 07/23/2024 07/23/2025 1 1 Encounter Details Date Type Department Care Team (Late st Contact Info) Description 07/23/2024 Orders Only [facility] [address] [place], [place] [phone] Lurdes Lo MD [address] [place], [place] [phone] Asthma-COPD overlap syndrome (CMS/HCC) (Primary Dx); Tobacco dependence Social History Tobacco Use Types Packs/Day Years [...] Care Team (Late st Contact Info) Description 12/12/2024 3:00 PM EDT Office Visit [facility] [address] [place] [address] Jayashree Kellogg, REGINALDS [address] [place] [address] 12/27/2024 10:15 AM EDT Office Visit [facility] [address] [place] [address] Lurdes Lo MD [address] [place] [address] 01/23/2025 3:00 PM EDT Office Visit [facility] [address] [place] [address] Horace Vieraaris [address] [place] [address] Scheduled Referrals Name Type Priority Associated Diagnoses Order Schedule Referral to Care Management Outpatient Referral Urgent Asthma-COPD overlap syndrome (CMS/HCC) Tobacco dependence Expected: 07/23/2024 (Approximate), Expires: 07/23/2025 documented as of this encounter Goals Goal Patient Goal Type Associated Problems Recent Progress Patient-Stated? Author Quit using tobacco (cigarettes, smokeless, etc) Tobacco Use No Ahmet Lombardo, Ladonna documented as of this encounter Visit Diagnoses Diagnosis Asthma-COPD overlap syndrome (CMS/HCC)- Primary Tobacco dependence Tobacco use disorder documented in this encounter Additional Health Concerns Assessment Noted Time PHQ-9 Depression Total Score: 8 02/13/20 24 11:13 AM EDT documented as of this encounter Care Teams Snow Plow Tractor Operator Relationship Specialty Start Date End Date Lurdes Lo MD [address] [place] [phone] PCP - General Family Medicine 08/09/22 Ahmet Lombardo, PharmD [address] [place] [phone] Pharmacist Internal Medicine 09/03/22 Deepti Boo Medical Clinic ManagerService Representative 06/13/23 [facility] 03/05/24 documented as of this encounter
--- OUTSIDE RECORDS SUMMARY | 2024-11-27 10:07 | XMS_ITS | Clinical Summary ---
Author Organization [employer] [facility] ity Address [address] [place] [address] Care Team Providers Care Table Games Manager Name Role Phone Unavailable Primary Care Provider [...] Vaccine ( - 2023-2 5 season) 2024 Depression Screening 05/09/2024 Influenza Vaccine (#1) 2025 HIB Vaccines Aged Out No longer eligi [...] age to complete this topic Meningococcal B Vaccine Aged Out No l onger eligible based on patient's age to complete this topic RSV Immunization Patients Un olena 20 months Aged Out No longer eligible b ased on patient's age to complete this topic Varicella Vaccines Aged Out No longer eligible based on patient's age to complete this topic
== END 2024-11-27 09:31 | disposition home or self-care (01) ==
LOC: HO.NEURO 09:30
PROVIDERS: PCP Family Medicine; Visit Provider General Practice
DX: R20.2 Paresthesia of skin (principal)
CPT/HCPCS: 95886; 95913

== ENCOUNTER → 2024-11-27 09:33 | Outpatient (BNV) | payer MEDICAID, SELFPAY | PROVIDERS: PCP Family Medicine; Visit Provider Psychiatry & Neurology Neurology | DX: R20.2 Paresthesia of skin (principal) | CPT/HCPCS: 95886; 95913 ==

== ENCOUNTER 2024-12-07 10:46 | Outpatient (AMB) | payer MEDICAID, SELFPAY ==
[2024-12-07 10:49] VITALS: BP 100/54; PULSE 90; O2SAT 98; BMI 20.3
--- NOTE | 2024-12-07 10:49 | A.OFFVIS_ITS ---
Vital Signs 12/07/24 10:49 Height 5 ft 3 in Weight 114 lb 10.246 oz BMI 20.3 BP 100/54 L Blood Pressure Location Lt brachial Position Sitting Pulse 90 Pulse Source Pulse Oximeter Pulse Oximetry (%) 98 Oxygen Delivery Method Room Air Intake Visit Reasons: Asthma Allergies acetaminophen (From Tylenol) Allergy (Unknown, Verified 12/07/24 10:51) Nausea and Vomiting tramadol (TRAMADOL) Allergy (Unknown, Verified 12/07/24 10:51) NAUSEA & VOMITING HPI Comments Details: The patient is a 59 year woman active smoker with worsening respiratory symptoms. The patient states that for the last few months she has had increasing cough congested and chest tightness. She has also noticed some wheezing. The patient has had some difficulties with breathing. She has been want to get a nebulizer but she has not been able to do so. She denies any fevers or chills. She does bring productive mucus. It is yellowish in color. Denies any hemoptysis. The patient did have a chest x-ray demonstrating some peribronchial cuffing and some mosaic pattern suggesting small airways disease and bronchitis. Also some haziness suggesting pneumonitis. she also has had evidence of eosinophilia on her blood work. As far as exposures there is mold in the basement. Will go ahead and request allergy testing at this time. The patient does have significant wheezing. Will go ahead and treated for a COPD exacerbation with bronchitis. Patient will again get the blood work in the pulmonary function studies. Based on her smoking history with greater than 30 pack-year history of smoking will go ahead and recommend for the lung cancer screening program as well. 12/30/2022 the patient has a telephone visit today. the patient had regular visit today but she woke up sick with fevers and sore throat. She did test for COVID was negative. Denies any sick contacts. Denies any significant chest tightness or wheezing. She continues have a productive cough. this cough is chronic for her. This is likely related to her ongoing smoking. Patient likely has chronic bronchitis. She has been tolerating the Trelegy inhaler. The patient also has a rescue inhaler. As far as her tobacco cessation she has tried multiple agents. We did send her Chantix med is not clear she ended up taking the medication. She was supposed to undergo PFTs blood work however the patient did not do them. The patient was also supposed to have lung cancer screening, but, she states that she was never called. Therefore sent clear as far as her compliance to therapy. Will go ahead and treated for pharyngitis at this time. Patient should also recheck for COVID if she is not any better in 1- 2 days. 12/07/2024 the patient is here for a pulmonary follow-up visit. Since we last spoke the patient had been admitted to the hospital back in June with influenza A. She did have a CT scan at that point demonstrating multiple pulmonary nodules and airspace disease consistent with a lower respiratory infection. She was subsequently discharged. During the hospitalization of note she has significant QT prolongation. She was given magnesium. The QT did normalize. Unfortunately she continues smoking cigarettes. Now she is smoking about a pack a day. She wants to quit. She tried multiple medications without any benefit. She is willing to try Chantix. I will send her the starter pack. She will let PAP family know that she is going to be starting it to watch and monitor for any depression symptoms. In addition to that she has had significant chest tightness and wheezing. Sometimes she ?loses her breath ?. She does have significant wheezing on exam will treat her for COPD exacerbation at this time. Will also optimize her respiratory therapy and have her follow-up in 3-4 months. She does need a nebulizer. She had her old nebulizer that is no longer working and is broken beyond repair. She needs to get a replacement nebulizer at this time. [facility] Medical History (Updated 12/07/24 @ 12:16 by Gavin Olivera MD) Asthma-COPD overlap syndrome Emphysema lung Premature menopause History of Helicobacter pylori infection Nicotine dependence, cigarettes, uncomplicated Allergies Asthma Constipation Moderate malnutrition Pulmonary nodules Colitis Acid reflux Vitamin D deficiency Osteoporosis (~2017) Migraines Lupus Osteoarthritis Fibromyalgia Surgical History History of appendectomy (~1982) History of tonsillectomy History of removal of ovarian cyst History of hysterectomy History of resection of small bowel (~2020) History of colonoscopy History of esophagogastroduodenoscopy (EGD) History of elbow surgery (~2010) Family History Father Fibromyalgia Osteoporosis Mother Stroke Social History Household Members: Family Housing: Apartment Do you presently have visiting nurse or other home services: Yes Alcohol intake: never Comment: Patient sleeping Patient Tobacco Use Status: Never used Tobacco Tobacco use type: Cigarette Cigarette Packs Per Day: 1 Cigarettes Per Day: 20.0 Years Smoked: 23 e-Cigarette/Vaping Use: Never Used Second Hand Smoke Exposure: Yes service: No Current occupational status: disabled 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 Review of Systems Const Denies chills and Denies fever(s) Eyes Denies change in vision ENT Reports nasal congestion, Reports nasal discharge, Reports odynophagia and Reports sore throat Card Denies chest pain, Denies dyspnea and Reports dyspnea on exertion Resp Reports change in phlegm color, Reports chest congestion, Reports cough, Denies dyspnea, Reports dyspnea on exertion and Reports wheezing GI Denies hematochezia, Denies change in bowel habits, Reports constipation and Reports odynophagia Denies hematuria Musc Denies back pain and Denies limited range of motion Skin/Breast Denies rash Neuro Denies focal weakness and Denies convulsions Psych Denies depression and Denies mood swings Endo Reports no additional complaints Sean/Lymph Denies lymphadenopathy Aller/Immun Reports wheezing Physical Exam Vital Signs: BMI result Body Mass Index 20.3 Const General: cooperative Orientation/consciousness: patient oriented x3 Eyes General: appearance normal, both eyes and all related structures Neck Neck: Yes no lymphadenopathy Chest Chest palpation & inspection: normal inspection of the chest Resp Effort & Inspection: normal respiratory effort and prolonged expiratory phase Auscultation: rhonchi and wheezes Neuro General: patient oriented x3 Assessment & Plan Assessment & Plan (1) Asthma: Code(s): J45.909 - Unspecified asthma, uncomplicated Category: Medical Qualifiers: Asthma severity: moderate Asthma persistence: persistent Asthma complication type: with acute exacerbation Qualified Code(s): J45.41 - Moderate persistent asthma with (acute) exacerbation (2) Tobacco abuse: Code(s): Z72.0 - Tobacco use Category: Medical (3) Bronchitis: Code(s): J40 - Bronchitis, not specified as acute or chronic Category: Medical (4) Allergies: Code(s): T78.40XA - Allergy, unspecified, initial encounter Category: Medical (5) Asthma-COPD overlap syndrome: Code(s): J44.89 - Other specified chronic obstructive pulmonary disease Category: Medical Plan stopped Breo stopped Incruse stop Spiriva start Breztri KATERIN as needed Nebulizer, needs a replacement LDCT program, next CT 06/2025 doxycycline tobacco cessation: chantix F/U 4-6 months Medications: New xlqxzhtvub-gbfrbszf-aqlhpjncos 160-9-4.8 mcg/actuation (Breztri Aerosphere) 2 inhalations inhalation BID 10.7 grams 0RF albuterol sulfate 90 mcg/actuation (Ventolin HFA) 2 puffs inhalation QID PRN 18 grams 11RF shortness of breath or wheezing 30 days doxycycline hyclate 100 mg PO BID 20 caps 0RF 10 days varenicline tartrate (Chantix Starting Month Box) PO PER PKG DIR 53 ea 0RF prednisone PO daily; Take 2 tabs daily x 5 days, then 1 tablet daily x 5 days 15 tabs 0RF 10 days Coding Level of Care Code Est Pt Level 4 (14955) Complex EM visit Add On G2211 Diagnoses Moderate persistent asthma with acute exacerbation J45.41 Asthma severity: moderate Asthma persistence: persistent Asthma complication type: with acute exacerbation Tobacco abuse Z72.0 Bronchitis J40 Allergies T78.40XA Asthma-COPD overlap syndrome J44.89 Time Spent (min) 17
--- OUTSIDE RECORDS SUMMARY | 2024-12-07 10:56 | XMS_ITS | Clinical Summary ---
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
== END 2024-12-07 11:20 | disposition home or self-care (01) ==
LOC: HO.HPS 10:47
PROVIDERS: PCP Family Medicine; Visit Provider Hospitalist
DX: J45.41 Moderate persistent asthma with (acute) exacerbation (principal); Z72.0 Tobacco use; J40 Bronchitis, not specified as acute or chronic; T78.40XA Allergy, unspecified, initial encounter; J44.89 Other specified chronic obstructive pulmonary disease
CPT/HCPCS: 99214

== ENCOUNTER → 2024-12-07 10:46 | Outpatient (BNVA) | payer MEDICAID, SELFPAY | PROVIDERS: PCP Family Medicine; Visit Provider Hospitalist | DX: J45.41 Moderate persistent asthma with (acute) exacerbation (principal); Z72.0 Tobacco use; J44.89 Other specified chronic obstructive pulmonary disease; T78.40XA Allergy, unspecified, initial encounter | CPT/HCPCS: 99212 ==

== ENCOUNTER 2025-03-22 13:52 | Emergency (ER) | payer MEDICAID, SELFPAY ==
--- NOTE | ~2025-03-22 | CT_ITS ---
EXAMINATION: CT HEAD WITHOUT CONTRAST CLINICAL INFORMATION: fall with head strike, vomited COMPARISON: 12/29/2019 TECHNIQUE: Contiguous axial imaging was performed from the skull base to vertex without intravenous administration of contrast. This CT examination was performed using dose optimization techniques as appropriate, variously including the following: *Automated exposure control *Adjustment of mA and/or kV according to patient size (this includes techniques or standardized protocols for targeted exams where dose is matched to indication/reason for exam; i.e. extremities or head) *Use of iterative reconstruction technique FINDINGS: There is no acute ischemic change. There is no intracranial hemorrhage. There is no mass-effect or midline shift. Basal cisterns and ventricles are within normal limits for age/cerebral volume. Orbits are symmetrical and unremarkable. Paranasal sinuses and mastoid air cells are pneumatized. There are no bony abnormalities. CT/CT head/brain wo IV con IMPRESSION: No acute intracranial abnormality. Electronically signed by: Harman Resendiz MD 03/22/2025 04:27 [place] [facility] [place]
--- NOTE | ~2025-03-22 | CT_ITS ---
EXAMINATION: CT CERVICAL SPINE WITHOUT CONTRAST CLINICAL INFORMATION: Fall, pain. COMPARISON: None available. TECHNIQUE: Axial imaging. Sagittal and coronal reconstructions. This CT examination was performed using dose optimization techniques as appropriate, variously including the following: *Automated exposure control *Adjustment of mA and/or kV according to patient size (this includes techniques or standardized protocols for targeted exams where dose is matched to indication/reason for exam; i.e. extremities or head) *Use of iterative reconstruction technique FINDINGS: Craniocervical and atlantoaxial articular ration is maintained. Predens space is maintained. Straightening of the cervical curvature. Vertebral body heights are maintained. No evidence of acute fracture or traumatic subluxation. Vertebral body heights are maintained. Disc spaces are maintained. The central bony canal is maintained. No suspicious bony lesions. No prevertebral soft tissue swelling. No suspicious thyroid findings. Biapical pleural parenchymal scarring. CT/CT cervical spine wo IV con IMPRESSION: No CT evidence of acute fracture or traumatic subluxation. Fleischner guidelines were followed. Electronically signed by: Sean Hughes MD 03/22/2025 04:28 PM [facility]
[2025-03-22 14:38] VITALS: BP 133/63; PULSE 72; RESP 18; TEMP 36.8; O2SAT 95; BMI 20.5
--- NOTE | 2025-03-22 14:48 | ED.GENADULT ---
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 She reports that she was walking on the stairs carrying decorations. She fell backwards and hit the back of her head. She initially did not have any significant pain pain Now she complains of neck pain, posterior head pain that she describes as a pulling. She also reports that she vomited on 1 occasion pain Denies any visual changes She is not anticoagulated Related Data Home Medications ?Medication ?Instructions ?Recorded ?Confirmed amitriptyline 25 mg tablet 25 mg PO BEDTIME 04/30/20 06/12/24 omeprazole 20 mg capsule,delayed 40 mg PO DAILY@0630 07/16/21 06/12/24 release albuterol sulfate 2.5 mg/3 mL 2.5 mg inhalation Q4H PRN Dyspnea 03/14/23 06/12/24 (0.083 %) solution for nebulization ondansetron 4 mg disintegrating 4 mg PO Q6H PRN Nausea And Vomiting 08/24/23 06/12/24 tablet chlorhexidine gluconate 0.12 % 15 ml BID 06/12/24 06/12/24 mouthwash cholecalciferol (vitamin D3) 50 50 mcg PO DAILY 06/12/24 06/12/24 mcg (2,000 unit) tablet (Vitamin D3) diclofenac sodium 1 % topical gel 2 g topical QD-BID PRN pain 06/12/24 06/12/24 dicyclomine 20 mg tablet 20 mg PO QD-QID PRN gas 06/12/24 06/12/24 docusate sodium 100 mg capsule 200 mg PO DAILY PRN Constipation 06/12/24 06/12/24 duloxetine 20 mg capsule,delayed 20 mg PO DAILY 06/12/24 06/12/24 release fluticasone propionate 50 1 spray intranasal DAILY 06/12/24 06/12/24 mcg/actuation nasal spray,suspension gabapentin 400 mg capsule 400 mg PO TID 06/12/24 06/12/24 ibuprofen 600 mg tablet 600 mg PO Q6H PRN pain 06/12/24 06/12/24 lidocaine 5 % topical patch 3 patch topical DAILY PRN Pain 06/12/24 06/12/24 montelukast 10 mg tablet 10 mg PO DAILY 06/12/24 06/12/24 sennosides 8.6 mg tablet (senna) 17.2 mg PO BID PRN Constipation 06/12/24 06/12/24 umeclidinium 62.5 mcg/actuation 1 inh inhalation DAILY 06/12/24 06/12/24 blister powder for inhalation (Incruse Ellipta) Previous Rx's ?Medication ?Instructions ?Recorded fluticasone furoate 200 1 inh inhalation DAILY 30 days #60 12/27/22 mcg-vilanterol 25 mcg/dose ea inhalation powder (Breo Ellipta) albuterol sulfate 90 mcg/actuation 2 puff inhalation QID PRN 12/07/24 aerosol inhaler (Ventolin HFA) shortness of breath or wheezing 30 days #18 grams budesonide 160 mcg-glycopyr 9 2 inh inhalation BID #10.7 grams 12/07/24 mcg-formot 4.8 mcg/actuation HFA inhaler (Breztri Aerosphere) doxycycline hyclate 100 mg capsule 100 mg PO BID 10 days #20 caps 12/07/24 prednisone 20 mg tablet See Rx Instructions PO DAILY 10 12/07/24 days #15 tabs varenicline tartrate 0.5 mg (11)-1 See Rx Instructions PO PER PKG DIR 12/07/24 mg (42) tablets in a dose pack #53 ea (Chantix Starting Month Box) budesonide-formoterol HFA 160 2 puff inhalation BID 30 days 12/11/24 mcg-4.5 mcg/actuation aerosol #10.2 grams inhaler (Symbicort) tiotropium bromide 2.5 2 puff inhalation DAILY 30 days #1 12/11/24 mcg/actuation mist for inhalation ea (Spiriva Respimat) Allergies Allergy/AdvReac Type Severity Reaction Status Date / Time acetaminophen (From Tylenol) Allergy Unknown Nausea and Verified 03/22/25 14:40 Vomiting tramadol (TRAMADOL) Allergy Unknown NAUSEA & Verified 03/22/25 14:40 VOMITING Review of Systems Constitutional: Constitutional: Denies body ache(s), Denies chills, Denies fever(s), Denies frequent falls and Reports headache(s) Eyes: Eyes: Denies blind spots and Denies blurry vision ENT: Denies vertigo, Denies dizziness and Reports headache(s) Cardiovascular: Cardiovascular: Denies chest pain Respiratory: Respiratory: Denies cough Gastrointestinal: Gastrointestinal: Denies abdominal pain, Reports nausea and Reports vomiting Musculoskeletal: Musculoskeletal: Denies back pain and Denies numbness Integumentary/Breasts: Skin/Breast: Denies rash and Denies wounds Neurologic: Denies confusion, Denies vertigo, Denies dizziness, Denies frequent falls, Reports headache(s), Denies memory loss and Denies numbness Psychiatric: Psychiatric: Denies confusion and Denies memory loss [facility] Past Medical History Medical History (Updated 03/22/25 @ 16:55 by Wicho Stockton) Asthma-COPD overlap syndrome Emphysema lung Premature menopause History of Helicobacter pylori infection Nicotine dependence, cigarettes, uncomplicated Allergies Asthma Constipation Moderate malnutrition Pulmonary nodules Colitis Acid reflux Vitamin D deficiency Osteoporosis (~2017) Migraines Lupus Osteoarthritis Fibromyalgia Surgical History History of appendectomy (~1982) History of tonsillectomy History of removal of ovarian cyst History of hysterectomy History of resection of small bowel (~2020) History of colonoscopy History of esophagogastroduodenoscopy (EGD) History of elbow surgery (~2010) Family History Family History Father Fibromyalgia Osteoporosis Mother Stroke Social History Social History Household Members: Family Housing: Apartment Do you presently have visiting nurse or other home services: Yes Alcohol intake: never Comment: Patient sleeping Patient Tobacco Use Status: Never used Tobacco Tobacco use type: Cigarette Cigarette Packs Per Day: 1 Cigarettes Per Day: 20.0 Years Smoked: 23 e-Cigarette/Vaping Use: Never Used Second Hand Smoke Exposure: Yes Advance Directives: No Advance Directives Information Provided: Yes service: No Current occupational status: disabled 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 Physical Exam ED Vital Signs: Vital Signs - 24 hr 11/14/25 14:38 Temperature 98.2 F Pulse Rate 72 Respiratory Rate 18 Blood Pressure 133/63 Pulse Oximetry 95 Oxygen Delivery Method Room Air BMI result Body Mass Index 20.5 Const General: No confusion Nutritional Appearance: well nourished Orientation/consciousness: No confusion HENMT Head: Yes normocephalic and Yes atraumatic Throat: Yes posterior oropharynx normal Eyes Eyelids: Yes eyelids normal Conjunctivae: conjunctivae normal Sclerae: sclerae normal Corneas: corneas normal Pupils: Equal, round and reactive pupils present EOM: EOMs intact bilaterally Neck Neck: Yes full ROM Resp Effort & Inspection: normal respiratory effort, able to speak in complete sentences, no audible wheezes and not labored Auscultation: clear to auscultation bilaterally Cardio Rate: regular rate Rhythm: regular rhythm GI Inspection: No distended Palpation (GI): Soft to palpation, not firm, nontender, no guarding and not rigid Skin General skin exam: no rashes or lesions noted and elasticity normal Neuro General: No confusion Cranial nerves: Yes CN's II-XII intact bilaterally, Yes Equal, round and reactive pupils present and Yes Bilaterally intact EOM present Cognition (Neuro): normal cognition Extrem Other: Moving all extremities well without any obvious deformities Course Course Course Narrative: This is a rapid medical exam performed by Virgen Nunez NP: Additional HPI, ROS, PE not included below will be deferred to primary provider. 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 Denies LOC, not anticoagulated. Plan: medicated with zofran, CT head and cspine Medications Administered Discontinued Medications Generic Name Dose Route Start Last Admin Trade Name Freq PRN Reason Stop Dose Admin Ondansetron HCl 4 mg 03/22/25 14:47 03/22/25 14:50 Ondansetron Odt 4 Mg Tab.Rapdis TRANSLINGU 03/22/25 14:48 4 mg ONCE ONE Administration Medical Decision Making Medical Decision Making MDM Narrative: 60-year-old female presents for evaluation after a nonsyncopal fall. She had the back of her head. There was no loss of consciousness, she is not anticoagulated, she has a nonfocal exam. She is complain of some mild headache and some neck pain. She had 1 episode of vomiting. I suspect that she likely has a concussion. Vital signs are stable, she is quite well appearing. She had a CT scan of the brain and cervical spine ordered in triage. She is treated with some Zofran. All of her images resulted not showing any evidence of significant traumatic injury. 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 Differential Diagnosis Differential Diagnoses: The differential diagnosis associated with the presentation includes Nonsyncopal fall Concussion Intracranial hemorrhage Mass effect Cervical fracture Cervical strain Radiology Impression Discussion of test interpretation with radiology: I have reviewed the radiologist's reading. Radiologist Impression: FINDINGS: There is no acute ischemic change. There is no intracranial hemorrhage. There is no mass-effect or midline shift. Basal cisterns and ventricles are within normal limits for age/cerebral volume. Orbits are symmetrical and unremarkable. Paranasal sinuses and mastoid air cells are pneumatized. There are no bony abnormalities. CT/CT head/brain wo IV con IMPRESSION: No acute intracranial abnormality. Electronically signed by: Harman Resendiz MD 03/22/2025 04:27 PM EST RP FINDINGS: Craniocervical and atlantoaxial articular ration is maintained. Predens space is maintained. Straightening of the cervical curvature. Vertebral body heights are maintained. No evidence of acute fracture or traumatic subluxation. Vertebral body heights are maintained. Disc spaces are maintained. The central bony canal is maintained. No suspicious bony lesions. No prevertebral soft tissue swelling. No suspicious thyroid findings. Biapical pleural parenchymal scarring. CT/CT cervical spine wo IV con IMPRESSION: No CT evidence of acute fracture or traumatic subluxation. Fleischner guidelines were followed. Electronically signed by: Sean Hughes MD 03/22/2025 04:28 PM EST RP Discharge Plan Discharge Clinical Impression: Minor closed head injury Patient Disposition: Home, Self-Care Additional Instructions: Your CT scan of the brain and cervical spine did not show any fractures or evidence of traumatic injury. Use ibuprofen as needed for pain Follow up with the primary doctor, return for new or worsening symptoms. You will likely be more sore in the morning than you are currently. This should resolve after a couple of days Prescriptions: No Action fluticasone furoate-vilanterol [Breo Ellipta] 200-25 mcg/dose blister with device 1 inh inhalation DAILY 30 Days Qty: 60 11RF budesonide-formoterol [Symbicort] 160-4.5 mcg/actuation HFA aerosol inhaler 2 puff inhalation BID 30 Days Qty: 10.2 11RF Spiriva Respimat 2.5 mcg/actuation mist 2 puff inhalation DAILY 30 Days Qty: 1 11RF albuterol sulfate 2.5 mg /3 mL (0.083 %) Solution For Nebulization 2.5 mg INHALATION Q4H PRN (Reason: Dyspnea) sennosides [senna] 8.6 mg Tablet 17.2 mg PO BID PRN (Reason: Constipation) gabapentin 400 mg capsule 400 mg PO TID dicyclomine 20 mg tablet 20 mg PO QD-QID PRN (Reason: gas) lidocaine 5 % adhesive patch,medicated 3 patch topical DAILY PRN (Reason: Pain) Rx Instructions: APPLY 3 PATCHES TOPICALLY TO SKIN, LEAVE ON FOR 12 HOURS AND OFF FOR 12 HOURS DIRECTED docusate sodium 100 mg Capsule 200 mg PO DAILY PRN (Reason: Constipation) montelukast 10 mg tablet 10 mg PO DAILY ibuprofen 600 mg tablet 600 mg PO Q6H PRN (Reason: pain) Rx Instructions: TAKE 1 TABLET BY MOUTH EVERY 6 HOURS NEEDED FOR PAIN, NO JASON EVERY DAY FOR MORE THAN 2 WEEKS fluticasone propionate 50 mcg/actuation spray,suspension 1 spray intranasal DAILY duloxetine 20 mg capsule,delayed release(DR/EC) 20 mg PO DAILY chlorhexidine gluconate 0.12 % mouthwash 15 ml BID diclofenac sodium 1 % gel 2 g topical QD-BID PRN (Reason: pain) cholecalciferol (vitamin D3) [Vitamin D3] 50 mcg (2,000 unit) Tablet 50 mcg PO DAILY Incruse Ellipta 62.5 mcg/actuation blister with device 1 inh INHALATION DAILY ondansetron 4 mg Tablet,Disintegrating 4 mg PO Q6H PRN (Reason: Nausea And Vomiting) amitriptyline 25 mg tablet 25 mg PO BEDTIME omeprazole 20 mg capsule,delayed release(DR/EC) 40 mg PO DAILY@0630 albuterol sulfate [Ventolin HFA] 90 mcg/actuation HFA aerosol inhaler 2 puff inhalation QID PRN (Reason: shortness of breath or wheezing) 30 Days Qty: 18 11RF Breztri Aerosphere 160-9-4.8 mcg/actuation HFA aerosol inhaler 2 inh inhalation BID Qty: 10.7 0RF doxycycline hyclate 100 mg capsule 100 mg PO BID 10 Days Qty: 20 0RF varenicline tartrate [Chantix Starting Month Box] 0.5 mg (11)- 1 mg (42) tablets,dose pack See Rx Instructions PO PER PKG DIR Qty: 53 0RF Rx Instructions: PO PER PKG DIR prednisone 20 mg tablet See Rx Instructions PO DAILY 10 Days Qty: 15 0RF Rx Instructions: PO daily; Take 2 tabs daily x 5 days, then 1 tablet daily x 5 days Print Language: [place]
[2025-03-22 16:54] VITALS: BP 110/55; PULSE 78; RESP 18; TEMP 36.6; O2SAT 97
[2025-03-22 17:06] VITALS: BP 110/55; PULSE 78; RESP 18; TEMP 36.6; O2SAT 97
== END 2025-03-22 17:07 | disposition home or self-care (01) ==
PROVIDERS: Emergency Provider Student in an Organized Health Care Education/Training Program; PCP Family Medicine
DX: S09.90XA Unspecified injury of head, initial encounter (principal); W10.9XXA Fall (on) (from) unspecified stairs and steps, initial encounter; Y93.89 Activity, other specified; Y92.9 Unspecified place or not applicable; Y99.9 Unspecified external cause status; R51.9 Headache, unspecified; M54.2 Cervicalgia
CPT/HCPCS: 70450; 72125; 99283; 99284

== ENCOUNTER → 2025-03-22 14:47 | Outpatient (BNV) | payer MEDICAID, SELFPAY | PROVIDERS: Emergency Provider Student in an Organized Health Care Education/Training Program; PCP Family Medicine; Visit Provider Radiology Diagnostic Ultrasound | DX: M54.2 Cervicalgia (principal); S09.90XA Unspecified injury of head, initial encounter; W10.8XXA Fall (on) (from) other stairs and steps, initial encounter; R11.10 Vomiting, unspecified | CPT/HCPCS: 70450; 72125 ==

== ENCOUNTER 2025-03-26 14:31 | Outpatient (AMB) | payer MEDICAID, SELFPAY ==
[2025-03-26 14:34] VITALS: BP 90/60; PULSE 86; O2SAT 96; BMI 20.5
--- NOTE | 2025-03-26 14:34 | A.OFFVIS_ITS ---
Vital Signs 03/26/25 14:34 Height 5 ft 3 in Weight 115 lb 11.883 oz BMI 20.5 BP 90/60 Blood Pressure Location Rt brachial Position Sitting Pulse 86 Pulse Source Pulse Oximeter Pulse Oximetry (%) 96 Oxygen Delivery Method Room Air Intake Visit Reasons: Asthma Geoscience Laboratory Technician Required: Yes Geoscience Laboratory Technician Services: Geoscience Laboratory Technician Offered & Declined Geoscience Laboratory Technician Name: MD speaks hebrew Accompanied by: Self / Same As Patient Allergies acetaminophen (From Tylenol) Allergy (Unknown, Verified 03/26/25 14:37) Nausea and Vomiting tramadol (TRAMADOL) Allergy (Unknown, Verified 03/26/25 14:37) NAUSEA & VOMITING HPI Comments Details: The patient is a 60 year woman active smoker with worsening respiratory symptoms. The patient states that for the last few months she has had increasing cough congested and chest tightness. She has also noticed some wheezing. The patient has had some difficulties with breathing. She has been want to get a nebulizer but she has not been able to do so. She denies any fevers or chills. She does bring productive mucus. It is yellowish in color. Denies any hemoptysis. The patient did have a chest x-ray demonstrating some peribronchial cuffing and some mosaic pattern suggesting small airways disease and bronchitis. Also some haziness suggesting pneumonitis. she also has had evidence of eosinophilia on her blood work. As far as exposures there is mold in the basement. Will go ahead and request allergy testing at this time. The patient does have significant wheezing. Will go ahead and treated for a COPD exacerbation with bronchitis. Patient will again get the blood work in the pulm onary function studies. Based on her smoking history with greater than 30 pack- year history of smoking will go ahead and recommend for the lung cancer screening program as well. 12/30/2022 the patient has a telephone visit today. the patient had regular visit today but she woke up sick with fevers and sore throat. She did test for COVID was negative. Denies any sick contacts. Denies any significant chest tightness or wheezing. She continues have a productive cough. this cough is chronic for her. This is likely related to her ongoing smoking. Patient likely has chronic bronchitis. She has been tolerating the Trelegy inhaler. The patient also has a rescue inhaler. As far as her tobacco cessation she has tried multiple agents. We did send her Chantix med is not clear she ended up taking the medication. She was supposed to undergo PFTs blood work however the patient did not do them. The patient was also supposed to have lung cancer screening, but, she states that she was never called. Therefore sent clear as far as her compliance to therapy. Will go ahead and treated for pharyngitis at this time. Patient should also recheck for COVID if she is not any better in 1- 2 days. 12/07/2024 the patient is here for a pulmonary follow-up visit. Since we last spoke the patient had been admitted to the hospital back in June with influenza A. She did have a CT scan at that point demonstrating multiple pulmonary nodules and airspace disease consistent with a lower respiratory infection. She was subsequently discharged. During the hospitalization of note she has significant QT prolongation. She was given magnesium. The QT did normalize. Unfortunately she continues smoking cigarettes. Now she is smoking about a pack a day. She wants to quit. She tried multiple medications without any benefit. She is willing to try Chantix. I will send her the starter pack. She will let PAP family know that she is going to be starting it to watch and monitor for any depression symptoms. In addition to that she has had significant chest tightness and wheezing. Sometimes she ?loses her breath ?. She does have significant wheezing on exam will treat her for COPD exacerbation at this time. Will also optimize her respiratory therapy and have her follow-up in 3-4 months. She does need a nebulizer. She had her old nebulizer that is no longer working and is broken beyond repair. She needs to get a replacement nebulizer at this time. 03/26/2025 the patient is here for pulmonary follow-up visit. The patient continues to struggle with her breathing. She continues have shortness of breath chest congestion. The patient recently was seen by her primary care doctor and given prednisone and Augmentin. She is doing a little better right now. The patient continues to use her inhalers although she is only using right now Spiriva and her rescue inhaler. I will send her Wixela this time for her to be able to be on her triple therapy. In addition to continues smoking cigarettes. I have given her Chantix last time but she never took it. I will send it again to the pharmacy so she can started. Once she is done with the starter pack she can call so I can send of the maintenance dose. The patient needs to quit smoking. We did again look at her CT scan of the chest that she had previously demonstrating significant pulmonary nodules tree-in-bud sugge sting a bronchiolitis and bronchitis from her smoking. Will go ahead and refer her to the lung cancer screening program at this time. [facility] Medical History (Updated 03/26/25 @ 21:57 by Gavin Olivera MD) Tobacco dependence Asthma-COPD overlap syndrome Emphysema lung Premature menopause History of Helicobacter pylori infection Nicotine dependence, cigarettes, uncomplicated Allergies Asthma Constipation Moderate malnutrition Pulmonary nodules Colitis Acid reflux Vitamin D deficiency Osteoporosis (~2017) Migraines Lupus Osteoarthritis Fibromyalgia Surgical History History of appendectomy (~1982) History of tonsillectomy History of removal of ovarian cyst History of hysterectomy History of resection of small bowel (~2020) History of colonoscopy History of esophagogastroduodenoscopy (EGD) History of elbow surgery (~2010) Family History Father Fibromyalgia Osteoporosis Mother Stroke Social History (Updated 03/26/25 @ 14:39 by Josie Thapa CMA) Household Members: Family Housing: Apartment Do you presently have visiting nurse or other home services: Yes Alcohol intake: never Comment: Patient sleeping Patient Tobacco Use Status: Current everyday Tobacco user Tobacco use type: Cigarette Cigarette Packs Per Day: 1 Cigarettes Per Day: 20.0 Years Smoked: 23 e-Cigarette/Vaping Use: Never Used Second Hand Smoke Exposure: Yes service: No Current occupational status: disabled 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 Review of Systems Const Denies chills and Denies fever(s) Eyes Denies change in vision ENT Reports nasal congestion and Reports nasal discharge Card Denies chest pain, Denies dyspnea and Reports dyspnea on exertion Resp Reports change in phlegm color, Reports chest congestion, Reports cough, Denies dyspnea, Reports dyspnea on exertion and Reports wheezing GI Denies hematochezia, Denies change in bowel habits and Reports constipation Denies hematuria Musc Denies back pain and Denies limited range of motion Skin/Breast Denies rash Neuro Denies focal weakness and Denies convulsions Psych Denies depression and Denies mood swings Endo Reports no additional complaints Sean/Lymph Denies lymphadenopathy Aller/Immun Reports wheezing Physical Exam Vital Signs: Last Vital Signs Pulse 86 03/26/25 14:34 BP 90/60 03/26/25 14:34 Pulse Ox 96 03/26/25 14:34 Oxygen Delivery Method Room Air 03/26/25 14:34 BMI result Body Mass Index 20.5 Const General: cooperative Orientation/consciousness: patient oriented x3 Eyes General: appearance normal, both eyes and all related structures Neck Neck: Yes no lymphadenopathy Chest Chest palpation & inspection: normal inspection of the chest Resp Effort & Inspection: normal respiratory effort and prolonged expiratory phase Auscultation: rhonchi Neuro General: patient oriented x3 Assessment & Plan Assessment & Plan (1) Asthma-COPD overlap syndrome: Code(s): J44.89 - Other specified chronic obstructive pulmonary disease Category: Medical (2) Asthma: Code(s): J45.909 - Unspecified asthma, uncomplicated Category: Medical Qualifiers: Asthma complication type: with acute exacerbation Asthma persistence: persistent Asthma severity: moderate Qualified Code(s): J45.41 - Moderate persistent asthma with (acute) exacerbation (3) Allergies: Code(s): T78.40XA - Allergy, unspecified, initial encounter Category: Medical Qualifiers: Encounter type: subsequent encounter Qualified Code(s): T78.40XD - Allergy, unspecified, subsequent encounter (4) Tobacco dependence: Code(s): F17.200 - Nicotine dependence, unspecified, uncomplicated Category: Medical Plan start Wixela continue Spiriva KATERIN as needed Nebulizer, needs a replacement LDCT program, next CT 06/2025 complete Augmentin Prednisone taper tobacco cessation: chantix F/U 4-6 months Orders: Referrals Lung Cancer Screening Referral F17.200 - Nicotine dependence, unspecified, uncomplicated Medications: New fluticasone propion-salmeterol 250-50 mcg/dose (Wixela Inhub) 1 inh inhalation Q12H 60 ea 11RF 30 days Refilled varenicline tartrate (Chantix Starting Month Box) PO PER PKG DIR 53 ea 0RF Discontinued fluticasone furoate-vilanterol 200-25 mcg/dose (Breo Ellipta) Discontinued Reason: Doctor's Order 1 inh inhalation DAILY 30 days 60 ea 11RF J45.909 - Unspecified asthma, uncomplicated jcgqhibaav-fbvbseev-pwocaekitm 160-9-4.8 mcg/actuation (Breztri Aerosphere) Discontinued Reason: Doctor's Order 2 inhalations inhalation BID 10.7 grams 0RF budesonide-formoterol 160-4.5 mcg/actuation (Symbicort) Discontinued Reason: Doctor's Order 2 puffs inhalation BID 30 days 10.2 grams 11RF J44.89 - Other specified chronic obstructive pulmonary disease Coding Level of Care Code Est Pt Level 4 (13519) Complex EM visit Add On G2211 Diagnoses Asthma-COPD overlap syndrome J44.89 Moderate persistent asthma with acute exacerbation J45.41 Asthma complication type: with acute exacerbation Asthma persistence: persistent Asthma severity: moderate Allergy, subsequent encounter T78.40XD Encounter type: subsequent encounter Tobacco dependence F17.200 Time Spent (min) 17
--- OUTSIDE RECORDS SUMMARY | 2025-03-27 12:21 | XMS_ITS | Clinical Summary ---
Author Organization [facility] ity Address [address] [place] [address] Care Team Providers Care Dragline Engineer Name Role Phone Unavailable Primary Care Provider [...] 2017 Zoster Vaccines (1 of 2) 2017 Depression Screening 05/09/2024 COVID-19 Vaccine ( - 2024-2 6 season) 2025 Influenza Vaccine (#1) 2025 RSV Immunization Adult Patie nts (1 - 1-dose 75+ series) 2042 HIB Vaccines Aged Out No longer eligi [...]
== END 2025-03-26 15:28 | disposition home or self-care (01) ==
LOC: HO.HPS 14:32
PROVIDERS: PCP Family Medicine; Visit Provider Hospitalist
DX: J44.89 Other specified chronic obstructive pulmonary disease (principal); J45.41 Moderate persistent asthma with (acute) exacerbation; T78.40XD Allergy, unspecified, subsequent encounter; F17.200 Nicotine dependence, unspecified, uncomplicated
CPT/HCPCS: 99214

== ENCOUNTER → 2025-03-26 14:31 | Outpatient (BNVA) | payer MEDICAID, SELFPAY | PROVIDERS: PCP Family Medicine; Visit Provider Hospitalist | DX: J45.41 Moderate persistent asthma with (acute) exacerbation (principal); J44.89 Other specified chronic obstructive pulmonary disease; Z91.09 Other allergy status, other than to drugs and biological substances; F17.200 Nicotine dependence, unspecified, uncomplicated | CPT/HCPCS: 99212 ==

== ENCOUNTER 2025-03-28 14:09 | Outpatient (AMB) | payer MEDICAID, SELFPAY ==
[2025-03-28 14:20] VITALS: BP 92/62; PULSE 68; O2SAT 94; BMI 20.7
--- NOTE | 2025-03-28 14:20 | A.OFFVIS_ITS ---
Vital Signs 03/28/25 14:20 Height 5 ft 3 in Weight 116 lb 13.52 oz BMI 20.7 BP 92/62 Blood Pressure Location Rt brachial Position Sitting Pulse 68 Pulse Source Pulse Oximeter Pulse Oximetry (%) 94 Oxygen Delivery Method Room Air Intake Visit Reasons: Osteoporosis Intake Note: NEW Patient presents today to establish care for Osteoporosis: No acute complaints reported at this time: ? Date of last Bone Density Screenin07/24/2021 Director Regulatory Agency Required: No Accompanied by: Self / Same As Patient Allergies acetaminophen (From Tylenol) Allergy (Unknown, Verified 03/28/25 14:23) Nausea and Vomiting tramadol (TRAMADOL) Allergy (Unknown, Verified 03/28/25 14:23) NAUSEA & VOMITING Medication List - Last Reconciled 03/28/25 by Gilma Padilla MD albuterol sulfate 2.5 mg inhalation Q4H PRN albuterol sulfate 90 mcg/actuation (Ventolin HFA) 2 puffs inhalation QID PRN 30 days amitriptyline 25 mg PO BEDTIME calcium citrate 500 mg (2 x 250 mg calcium) PO BID chlorhexidine gluconate 0.12% 15 mL BID cholecalciferol (vitamin D3) (Vitamin D3) 50 mcg PO DAILY diclofenac sodium 1% 2 grams topical QD-BID PRN dicyclomine 20 mg PO QD-QID PRN docusate sodium 200 mg PO DAILY PRN duloxetine 20 mg PO DAILY fluticasone propion-salmeterol 250-50 mcg/dose (Wixela Inhub) 1 inh inhalation Q12H 30 days fluticasone propionate 50 mcg/actuation 1 spray intranasal DAILY gabapentin 400 mg PO TID ibuprofen 600 mg PO Q6H PRN lidocaine 5% 3 patches topical DAILY PRN montelukast 10 mg PO DAILY omeprazole 40 mg PO DAILY@0630 ondansetron 4 mg PO Q6H PRN prednisone PO daily; Take 2 tabs daily x 5 days, then 1 tablet daily x 5 days 10 days sennosides (senna) 17.2 mg PO BID PRN tiotropium bromide 2.5 mcg/actuation (Spiriva Respimat) 2 puffs inhalation DAILY 30 days varenicline tartrate (Chantix Starting Month Box) PO PER PKG DIR HPI Comments Details: 57 YO Female with PMHx Fibromyalgia, and early menopause at the age of 29 secondary to TAHBSOO is seen for management of Osteoporosis. She was last seen by Dr. Martini in 2022, after which she was lost to follow-up. Prior HPI: First diagnosed in Apr 2018 with her first screening DEXA. She was started on treatment with Fosamax by her PCP and took this until August 2018 (for 2 months). She was taking this incorrectly (with juice, and lying down to go back to sleep afterwards), and also had recently had multiple dental extractions while on the Fosamax. I recommended that she stop the Fosamax for a matter of months to allow time for her jaw to heal after her dental procedures. She then resumed Fosamax in April 2019. This was stopped approximately in March 2020 prior to a dental extraction. She has completed all dental work at this time. She then resumed the Fosamax 12/2021. She then stopped this approximately 1 month ago as she feels it is causing headaches. She did complete a full biochemical workup for secondary causes of Osteoporosis which was negative. Vitamin D was low and her dose was increased. No history of pathologic fracture or ONJ. Is using daily PPI, but is not using anticoagulant, antiepileptic or glucocorticoid medication. Has not used these in the past. Does weight bearing exercise 4 days per week in the form of exercise bike and resistance training for 30 minutes at a time. Fracture history: She has never broken a bone. Height loss: Denies any height loss. [employer]ORER [employer] G[employer]ACING history: Menarche 15. Underwent TAHBSOO at the age of 29. She did use HRT FOR 2 years. History of Kidney stones: Denies personal history of kidney stones. Does have a family history of kidney stones. Family history of Osteoporosis or hip fracture. She has a family history of Osteoporosis in her mother, and a hip fracture in her grandmother. Interval history since last visit: She reports bone pains/muscle pain, but she also has fibromyalgia She had a fall last tuesday03/22/25, no falls She has not being on any antiosteoporosis medication since last visit on January/2022 Takes vitamin D, unclear dose, per chart review is 2000 IU Has not had a DEXA scan Does not take a Calcium supplement. Does not drink, eats cheese 3-4x/wk. She has been eating icecream almost every day recently. Does not eat green leafy veggies. No plan for dental extractions or implant DXA: 07/24/2021 FINDINGS: AP SPINE L1-L4: Current: BMD 0.782 g/cm2, Z-score -2.0, T-score -3.3, osteoporosis, 8.9% decrease from baseline (<5% change is not significant). Baseline: BMD 0.858 g/cm2. LEFT FEMUR, NECK: Current: BMD 0.764 g/cm2, Z-score -0.6, T-score -2.0, osteopenia. Baseline: BMD 0.788 g/cm2. LEFT FEMUR, TOTAL: Current: BMD 0.751 g/cm2, Z-score -1.0, T-score -2.0, osteopenia, 5.7% decrease from baseline (<5% change is not significant). Baseline: BMD 0.796 g/cm2. LEFT FOREARM RADIUS 33%: BMD 0.596 g/cm2, Z-score -2.8, T-score -3.2, osteoporosis. Prior: Not previously measured. [facility] Medical History (Updated 03/26/25 @ 21:57 by Gavin Olivera MD) Tobacco dependence Asthma-COPD overlap syndrome Emphysema lung Premature menopause History of Helicobacter pylori infection Nicotine dependence, cigarettes, uncomplicated Allergies Asthma Constipation Moderate malnutrition Pulmonary nodules Colitis Acid reflux Vitamin D deficiency Osteoporosis (~2017) Migraines Lupus Osteoarthritis Fibromyalgia Surgical History History of appendectomy (~1982) History of tonsillectomy History of removal of ovarian cyst History of hysterectomy History of resection of small bowel (~2020) History of colonoscopy History of esophagogastroduodenoscopy (EGD) History of elbow surgery (~2010) Family History Father Fibromyalgia Osteoporosis Mother Stroke Social History (Updated 03/26/25 @ 14:39 by Josie Thapa CMA) Household Members: Family Housing: Apartment Do you presently have visiting nurse or other home services: Yes Alcohol intake: never Comment: Patient sleeping Patient Tobacco Use Status: Current everyday Tobacco user Tobacco use type: Cigarette Cigarette Packs Per Day: 1 Cigarettes Per Day: 20.0 Years Smoked: 23 e-Cigarette/Vaping Use: Never Used Second Hand Smoke Exposure: Yes service: No Current occupational status: disabled 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 Physical Exam Vital Signs: Last Vital Signs Pulse 68 03/28/25 14:20 BP 92/62 03/28/25 14:20 Pulse Ox 94 03/28/25 14:20 Oxygen Delivery Method Room Air 03/28/25 14:20 BMI result Body Mass Index 20.7 Assessment & Plan Assessment & Plan (1) Osteoporosis: Onset Date: ~2017 Comment: (Bone Dexa Lumbar T-score: -2.7 on 04/25/18; -3.3 on 07/24/21) Code(s): M81.0 - Age-related osteoporosis without current pathological fracture Category: Medical Qualifiers: Osteoporosis type: unspecified Presence of current pathological fracture: unspecified Qualified Code(s): M81.0 - Age-related osteoporosis without current pathological fracture Plan: First diagnosed with osteoporosis in April 2018 following her initial DEXA screening. She began Fosamax therapy but initially took it incorrectly and had multiple dental extractions during this period. Fosamax was paused to allow for jaw healing, then resumed in April 2019. It was stopped again in March 2020 for further dental work, which is now complete. Fosamax was restarted in December 2021 but discontinued about one month ago due to patient-reported headaches. Has not had treatment or a repeat DXA since 2021. No recent history of fractures. No plan for dental extractions or implant. Plan Advice to continue vitamin D supplementation Prescribed 500mg BID, advice to increase calcium intake from diet Order DXA scan Fall prevention discussed: proper light at night, vision checks, balance exercises (2) Vitamin D deficiency: Code(s): E55.9 - Vitamin D deficiency, unspecified Category: Medical Plan: Prior history of Vit d deficiency. Most recent level 05/30/24: 43. currently taking supplement, possibly 2000IU. Plan Repeat levels Plan 45 minutes spent reviewing previous records, labs, imaging, education and documenting in the chart Orders: Orders XR DEXA axial skeleton Today E55.9 - Vitamin D deficiency, unspecified, M81.0 - Age-related osteoporosis without current pathological fracture Vitamin D 25-OH Total Today E55.9 - Vitamin D deficiency, unspecified, M81.0 - Age-related osteoporosis without current pathological fracture TSH reflex Free T4 Today E55.9 - Vitamin D deficiency, unspecified, M81.0 - Age-related osteoporosis without current pathological fracture Medications: New calcium citrate 500 mg (2 x 250 mg calcium) PO BID 60 tabs 4RF M81.0 - Age- related osteoporosis without current pathological fracture Coding Level of Care Code New Pt Level 4 (36151) Diagnoses Osteoporosis, unspecified osteoporosis type, unspecified pathological fracture presence M81.0 Osteoporosis type: unspecified Presence of current pathological fracture: unspecified Vitamin D deficiency E55.9
--- OUTSIDE RECORDS SUMMARY | 2025-03-28 19:33 | XMS_ITS | Encounter Summary ---
Author Organization [employer] Address [address] [place] [address] Care Team Providers Care Marketing Operations Intern Name Role Phone Maria Elena Davis MEDICAL DIAGNOSTIC RADIOGRAPHER Primary Care Provider [phone] Lurdes Lo MD Primary Care Provider [phone] Ahmet Lombardo PharmD Unavailable [phone] Encounter Details Date Type Department Care Team (Latest Contact Info) Description 02/09/2022 Abstract C CONVERSIONS Dental, Provider, DDS Social History Tobacco [...] on filedocumented in this encounter Care Teams Marketing Operations Intern Relationship Specialty Start Date End Date Maria Elena Davis [facility] [address] [place] [id number] PCP - General Family Medicine 12/31/21 08/08/22 Lurdes Lo MD [address] [place] [id number] PCP - General Family Medicine 08/09/22 Ahmet Lombardo, PharmD [address] [place] [address] [phone] Pharmacist Internal Medicine 09/03/22 Deepti Boo Sausage CannerSenior Quality Assurance Engineer 06/13/23 Home Care [facility] 03/05/24 documented as of this encounter
--- OUTSIDE RECORDS SUMMARY | 2025-03-28 19:33 | XMS_ITS | Encounter Summary ---
Author Organization [employer] Address [address] [place] [address] Care Team Providers Care Labor Delivery Specialist Name Role Phone Lurdes Lo MD Primary Care Provider Ahmet Lombardo PharmD Unavailable [phone] Reason for Visit * Reason Onset Date Comments Appointment 03/08/2023 Encounter Details Date Type Department Care Team ([facility] st Contact Info) Description 03/08/2023 Telephone [facility] [address] [place] [address] Jayashree Kellogg DDS [address], [place] [phone] Appointment Social History Tobacco Use Types Packs/Day [...] documented as of this encounter Care Teams Labor Delivery Specialist Relationship Specialty Start Date End Date Lurdes Lo MD [address] [place] [address] PCP - General Family Medicine 08/09/22 Ahmet Lombardo PharmD [address] [place] [address] Pharmacist Internal Medicine 09/03/22 Deepti Boo TeletypesetterRibbon Sweatband Operator 06/13/23 Home Care [facility] 03/05/24 documented as of this encounter
--- OUTSIDE RECORDS SUMMARY | 2025-03-28 19:33 | XMS_ITS | Clinical Summary ---
Author Organization [facility] ity Address [address] [place] [address] Care Team Providers Care Capture Manager Name Role Phone Unavailable Primary Care [...] 2) 2017 Depression Screening 05/09/2024 COVID-19 Vaccine (1 - 2024-2 6 season) 2025 Influenza Vaccine [...]
--- OUTSIDE RECORDS SUMMARY | 2025-03-28 19:33 | XMS_ITS | Encounter Summary ---
Author Organization [employer] Address [address] [facility] [address] [place] [address] Care Team Providers Care Impact Hammer Operator Name Role Phone Lurdes Lo MD Primary Care Provider [phone] Ahmet Lombardo PharmD Unavailable [phone] Reason for Referral * Consultation (Routine) - Closed Specialty Diagnoses / Procedures Referred By Contac t Referred To Contact Rheumatology Diagnoses Rheumatoid factor positive with cyclic citrullinated peptide (CCP) antibody negative Polyarthralgia Positive CAROLIN (antinuclear antibody) Lurdes Lo MD [address] [place] [address] Phone: tel: fax: [facility] [address] Phone: tel: fax: Referral ID Status Reason Start Date Expiration Date V isits Requested Visits Authorized [id number] Closed Specialty Services Required 06/07/2024 06/07/2025 12 12 Encounter Details Date Type Department Care Team (Late st Contact Info) Description 09/19/2024 Orders Only [facility] [address] [place], [place] [phone] Lurdes Lo MD [address] [place], [place] [phone] Rheumatoid factor positive with cyclic citrullinated peptide (CCP) antibody negative (Primary Dx); Polyarthralgia; Positive CAROLIN (antinuclear antibody) Social History Tobacco Use Types Packs/Day Years [...] as of this encounter Plan of Treatment Scheduled Referrals Name Type Priority Associated Diagnoses Orde r Schedule Referral to Rheumatology Outpatient Referral Routine Rheumatoid factor positive with cyclic citrullinated peptide (CCP) antibody negative Polyarthralgia Positive CAROLIN (antinuclear antibody) Expected: 09/19/2024 (Approximate), Expires: 09/19/2025 documented as of this encounter Goals Goal Patient Goal Type Associated Problems Recent Progress Patient-Stated? Author Quit using tobacco (cigarettes, smokeless, etc) Tobacco Use No Ahmet Lombardo, [place] documented as of this encounter Visit Diagnoses Diagnosis Rheumatoid factor positive with cyclic citrullinated peptide (CCP) antibody negative- Primary Polyarthralgia Pain in joint, multiple sites Positive CAROLIN (antinuclear antibody) Other and unspecified nonspecific immunological findings documented in this encounter Additional Health Concerns Assessment Noted Time PHQ-9 Depression Total Score: 8 02/13/20 24 11:13 AM EDT documented as of this encounter Care Teams Impact Hammer Operator Relationship Specialty Start Date End Date Lurdes Lo MD [address] [place] [address] PCP - General Family Medicine 08/09/22 Ahmet Lombardo, PharmD [address] [place] [address] Pharmacist Internal Medicine 09/03/22 Deepti Boo Sheriff'S SergeantSupervisor Gear Repair 06/13/23 Home Care [facility] 03/05/24 documented as of this encounter
--- OUTSIDE RECORDS SUMMARY | 2025-03-28 19:33 | XMS_ITS | Encounter Summary ---
Author Organization [email or web address] Address [address] [facility] [address] [place] [address] Care Team Providers Care Certified Hand Therapist Name Role Phone Lurdes Lo MD Primary Care Provider [phone] Ahmet Lombardo PharmD Unavailable [phone] Reason for Referral * Consultation (Routine) - Canceled Specialty Diagnoses / Procedures Referred By Controlly bynum Referred To Contact Rheumatology Diagnoses Polyarthralgia Rheumatoid factor positive with cyclic citrullinated peptide (CCP) antibody negative Surinder Martinez MD [address] [place] [phone] Phone: tel: fax: Referral ID Status Reason Start Date Expiration Date Visits Requested Visits Authorized [id number] Canceled Specialty Services Required 08/21/2024 08/21/2025 1 1 Encounter Details Date Type Department Care Team (Late st Contact Info) Description 08/21/2024 Orders Only [facility] [address] [place] [address] [phone] Surinder Martinez MD [address] [place] [address] [phone] Polyarthralgia (Primary Dx); Rheumatoid factor positive with cyclic citrullinated peptide [...] Referral to Rheumatology Outpatient Referral Routine Polyarthralgia Rheumatoid factor positive with cyclic citrullinated peptide (CCP) antibody negative Expected: 08/21/2024 (Approximate), Expires: 08/21/2025 documented as of this encounter Goals Goal Patient Goal Type Associated Problems Recent Progress Patient-Stated? Author Quit using tobacco (cigarettes, smokeless, etc) Tobacco Use Ahmet Villareal, PharmD documented as of this encounter Visit Diagnoses Diagnosis Polyarthralgia- Primary Pain in joint, multiple sites Rheumatoid factor positive with cyclic citrullinated peptide (CCP) antibody negative documented in this encounter Additional Health Concerns Assessment Noted Time PHQ-9 Depression Total Score: 8 02/13/20 11:13 AM EDT documented as of this encounter Care Teams Certified Hand Therapist Relationship Specialty Start Date End Date Lurdes Lo MD [address] [place], [place] [phone] PCP - General Family Medicine 08/09/22 Ahmet Lombardo PharmD [address] [place] [address] Pharmacist Internal Medicine 09/03/22 Deepti Boo Medical Education ManagerSupervisor Intelligence Analyst 06/13/23 Home Care [facility] 03/05/24 documented as of this encounter
--- OUTSIDE RECORDS SUMMARY | 2025-03-28 19:33 | XMS_ITS | Encounter Summary ---
Author Organization [employer] Address [address] [facility] [address] [place] [address] Care Team Providers Care Baggage Screener Name Role Phone Lurdes Lo MD Primary Care Provider [phone] Ahmet Lombardo PharmD Unavailable [phone] Reason for Visit * Reason Comments Med Refill Encounter Details Date Type Department Care Team ([facility] st Contact Info) Description 12/01/2023 Refill [facility] [address] [place], [place] [phone] Lurdes Lo MD [address] [place], [place] [phone] Paresthesia of lower extremity Social History Tobacco [...] documented as of this encounter Care Teams Baggage Screener Relationship Specialty Start Date End Date Lurdes Lo MD [address] [place] [address] PCP - General Family Medicine 08/09/22 Ahmet Lombardo, PharmD [address] [place] [address] Pharmacist Internal Medicine 09/03/22 Deepti Boo Spinning Bath PatrollerMedical Laboratory Technologist 06/13/23 Home Care [facility] 03/05/24 documented as of this encounter
--- OUTSIDE RECORDS SUMMARY | 2025-03-28 19:33 | XMS_ITS | Clinical Summary ---
Author Organization [employer] Address [address] [facility] [address] [place] [address] Care Team Providers Care Second Worker Name Role Phone Lurdes Lo MD Primary Care Provider Ahmet Lombardo PharmD Unavailable [phone] Allergies Active Allergy Reactions Criticality Noted Date Comments Acetaminophen Nausea And Vomiting 08/24/2023 Tramadol Unknown 04/06/2018 Other Reaction(s): NAUSEA & VOMITING Medications sennosides (Senokot) 8.6 MG tabletIndications :Other constipation Take 2 tablets (17.2 mg) by mouth if needed each day for constipation. 60 tablet 5 Active docusate sodium (Colace) 100 MG capsule [...] DAY AT THE SAME TIME 023 Active chlorhexidine (Peridex) 0.12 % solution Swish 15 mL morning and night for 1 minute. Spit, do not swallow. Do not eat or drink for 30 minutes following use. 473 mL 024 Active lidocaine (Lidoderm) 5 % patch APPLY 3 PATCHES EVERY DAY, MAY LEAVE ON FOR UP TO 12 HOURS 90 patch 11 Active fluticasone (Flonase) 50 MCG/ACT nasal spray Administer 1 spray into each nostril Once per day. 48 g Active cholecalciferol (Vitamin D-3) 50 MCG (1999 UT) capsule Take 1 capsule (50 mcg) by mouth Once per day. 30 capsule Active Fluticasone-Umecl idin-Vilant (Trelegy Ellipta) 100-62.5-25 MCG/ACT aerosol powder Inhale 1 puff Once per day. 60 each Active DULoxetine (Cymbalta) [address] capsule TAKE 1 CAPSULE BY MOUTH EVERY DAY. DO NOT CRUSH OR CHEW. 30 capsule Active ondansetron ODT (Zofran-ODT) 4 MG disintegrating tabletIndications :Nausea DISSOLVE 1 TABLET ON TONGUE AND SWALLOW EVERY 6 HOURS as needed for nausea 30 tablet Active albuterol (2.5 MG/3ML) 0.083% nebulizer solution INHALE 1 AMPULE USING A NEBULIZER EVERY 4 HOURS NEEDED FOR WHEEZING OR SHORTNESS OF BREATH. DO NOT EXCEED FOUR TIMES DAILY. 90 mL 3 Active omeprazole (PriLOSEC) [address] capsuleIndication s:Dyspepsia TAKE 1 CAPSULE BY MOUTH EVERY DAY BEFORE BREAKFAST 90 capsule 1 Active montelukast (Singulair) 10 MG tablet TAKE 1 TABLET BY MOUTH EVERY MORNING 90 tablet 3 Active dicyclomine (Bentyl) 20 MG tablet TAKE 1 TABLET BY MOUTH UP TO FOUR TIMES DAILY NEEDED FOR GAS 120 tablet 3 Active amitriptyline (Elavil) 25 MG tablet TAKE 1 TABLET BY MOUTH EVERY DAY AT BEDTIME 90 tablet 3 Active Symbicort 160-4.5 MCG/ACT inhaler Inhale 2 puffs 2 times daily. Active Spiriva Respimat 2.5 MCG/ACT inhaler inhale 2 puffs by mouth every day Active Varenicline Tartrate, Starter, 0.5 MG X 11 & 1 MG X 42 tablet therapy pack use as directed on package Active ibuprofen 600 MG tablet TAKE 1 TABLET BY MOUTH EVERY 6 HOURS NEEDED FOR PAIN, DO NOT TAKE EVERY DAY FOR MORE THAN 2 WEEKS 30 tablet 3 Active Diclofenac Sodium 1 % gel APPLY 2 GRAMS TOPICALLY TO AFFECTED AREA(S) ONCE OR TWICE DAILY NEEDED FOR PAIN 200 g 3 Active predniSONE (Deltasone) 20 MG tablet Take 1 tablet (20 mg) by mouth Once per day for 5 days. 5 tablet 5 2:01 PM EST 2024 Active amoxicillin-clavu lanate (Augmentin) 875-125 MG tablet Take 1 tablet by mouth 2 times daily for 7 days. 14 tablet 5 2:01 PM EST 2024 Active gabapentin (Neurontin) 600 MG tablet Take 1 tablet (600 mg) by mouth 3 times daily. 90 tablet 11 5 2:01 PM EST 2025 Active gabapentin (Neurontin) 400 MG capsule Take 1 capsule (400 mg) by mouth 3 times daily. 90 capsule 11 024 2024 Discontinued Diclofenac Sodium 1 % gel Apply to affected area once or twice daily as needed for pain 200 g 3 024 2024 Discontinued azithromycin (Zithromax) 250 MG tablet Take 2 tablets by mouth on Day 1, and 1 tablet daily from Day 2 to Day 5 6 tablet 2024 Discontinued(T herapy completed) ibuprofen 600 MG tablet TAKE 1 TABLET BY MOUTH EVERY 6 HOURS NEEDED FOR PAIN, DO NOT TAKE EVERY DAY FOR MORE THAN 2 WEEKS 30 tablet 3 2024 Discontinued(R johnnie (will not trigger notification to Pharmacy)) gabapentin (Neurontin) 400 MG capsule TAKE 1 CAPSULE BY MOUTH THREE TIMES DAILY 90 capsule 11 2024 Discontinued Hospital, Clinic, or Other Facility Administered Medication Ordered Dose Route Frequency Start Date End Date Status lidocaine (Xylocaine) 2 % injection 40 mgIndications:Spasm of left trapezius muscle 40 mg IJ Once 2025 Active Active Problems Problem Noted Date Diagnosed Date Smoking greater than 20 pack years 12/28/2024 Assessment & Plan (03/22/2025 12:20 PM EST): - LDCT in Apr 2023, Lung RADS 2 - chest CT in Jun 2024: centrilobular emphysema with scattered pulmonary nodules. Assessment & Plan (12/28/2024 12:10 PM EDT): - LDCT in Apr 2023, Lung RADS 2 - chest CT in Jun 2024: centrilobular emphysema with scattered pulmonary nodules. Pain, dental 11/12/2024 Adverse effects of medication 10/23/2024 Encounter for screening colonoscopy 10/23/2024 Overview (10/23/2024): Index screening colonoscopy, Hypomagnesemia 10/23/2024 Prolonged QT interval 10/23/2024 Tendonitis of both shoulders 10/23/2024 Pulmonary nodules 10/01/2024 Assessment & Plan (03/22/2025 12:18 PM EST): - last CT scan in Jun 2024: Two 4 mm nodules in RML and one 5 mm nodule in RLL - Check with lung cancer screening program for next CT recommendation Assessment & Plan (12/28/2024 12:12 PM EDT): - last CT scan in Jun 2024: Two 4 mm nodules in RML and one 5 mm nodule in RLL - Check with lung cancer screening program for next CT recommendation Assessment & Plan (10/01/2024 5:52 PM EDT): - last CT scan in Jun 2024: Two 4 mm nodules in RML and one 5 mm nodule in RLL - Check with lung cancer screening program for next CT recommendation Positive CAROLIN (antinuclear antibody) 07/03/2024 Assessment & Plan (03/22/2025 12:16 PM EST): - Upcoming appointment with train planner Assessment & Plan (09/27/2024 11:50 PM EDT): - Prescribed predniSONE (Deltasone) 20 MG tablet 09/25/24 Rheumatoid factor positive w ith cyclic citrullinated peptide (CCP) antibody negative 07/03/2024 Assessment & Plan (03/22/2025 12:16 PM EST): - Referred to train planner. - Pt missed appointment, rescheduled appointment for 04/02/2025. Emphasized the importance of keeping appointment. - Prescribed predniSONE (Deltasone) 20 MG tablet 09/25/24 Assessment & Plan (09/27/2024 11:50 PM EDT): - Referred to train planner. - Pt missed appointment a few weeks ago but will be rescheduling - Prescribed predniSONE (Deltasone) 20 MG tablet 09/25/24 Spasm of left trapezius muscle 06/22/2024 Polyarthralgia 06/02/2024 Assessment & Plan (12/28/2024 11:57 AM EDT): - history of CAROLIN 1:160 in 2018 - most recent CAROLIN 1:320 in May 2024, Rheumatoid factor positive; normal ESR and CRP (patient was on prednisone for COPD) - refer to train planner in [place] since she has a difficulty going to [place] - consider pain management if she does not have Dx rheumatological disorder Assessment & Plan (09/27/2024 11:49 PM EDT): - history of CAROLIN 1:160 in 2018 - seen by train planner. Normal ESR and CRP. Attributed to fibromyalgia - Prescribed predniSONE (Deltasone) 20 MG tablet 09/25/24 - will check lab again Assessment & Plan (07/03/2024 8:53 AM EST): - history of CAROLIN 1:160 in 2018 - seen by train planner. Normal ESR and CRP. Attributed to fibromyalgia - will check lab again Assessment & Plan (06/02/2024 5:38 PM EST): - history of CAROLIN 1:160 in 2018 - seen by train planner. Normal ESR and CRP. Attributed to fibromyalgia - will check lab again Gabapentin overdose 02/17/2024 Assessment & Plan (02/17/2024 3:13 PM EDT): Seen In ED on 11/21/2023. Reportedly took an extra of her Gabapentin. Symptoms resolved. History of tooth extraction 02/09/2024 Allergies 01/30/2024 Constipation 01/30/2024 Difficulty maintaining weight 01/30/2024 Assessment & Plan (02/19/2024 6:52 PM EDT): - patient has a difficulty meeting nutritional needs by PO intake due to fear of recurrent SBO, nausea, and abdominal pain - continue nutritional supplement Vitamin D deficiency 01/30/2024 Assessment & Plan (12/28/2024 11:37 AM EDT): - last Vitamin D level was normal - Continue vitamin D 2000 units daily Alveolitis of maxilla 01/30/2024 Retained dental root 01/24/2024 Chronic pain of both shoulders 09/07/2023 Assessment & Plan (02/19/2024 6:49 PM EDT): - seen by [facility] Ortho in October 2023, Dx tendinitis - [...] of left hand 11/26/2022 Assessment & Plan (03/22/2025 12:24 PM EST): - seen by [facility] Orthopedist in Dec 2022 - She gave an informed consent to surgical release; she decided to continue to treat conservatively - continue conservative management for now - Patient would like to see orthopedist again Assessment & Plan (06/02/2024 5:25 PM EST): - seen by [facility] Orthopedist in Dec 2022 - She gave an informed consent to surgical release; she decided to continue to treat conservatively - continue conservative management for now Assessment & Plan (02/19/2024 6:50 PM EDT): - seen by [facility] Orthopedist in Dec 2022 - She gave an informed consent to surgical release; she decided to continue to treat conservatively - continue conservative management for now Assessment & Plan (04/22/2023 5:31 PM EST): - seen by [facility] Orthopedist in Dec 2022 - She gave an informed consent to surgical release; she has not scheduled a surgery date yet. - continue conservative management for now; encouraged to schedule a follow up appt with ortho Assessment & Plan (11/26/2022 7:38 AM EDT): - refer to orthopedist Asthma with COPD ([facility]) 11/25/2022 Assessment & Plan (03/22/2025 12:19 PM EST): - followed by [facility] pulmonology and lung cancer screening program, last seen by Dr. Olivera in Dec 2024 and for lung cancer screening in Apr 2023 - frequency of exacerbation requiring antibiotic and prednisone, every 2-3 mo - 03/21/2025, significant wheezing and symptoms suggestive over sinusitis. Will treat with Augmentin for sinusitis and prednisone - 12/07/24. Rx doxycycline and prednisone. - September 2024. Tx azithromycin and prednisone - most recent hospitalization in Jun 2024 for sepsis, Influenza A, and pneumonia. Treated with steroid, ostelamivir, and oxygen. - current medications: budesonide / formoterol (Symbicort) and tiotropium (Spiriva) - pt was prescribed fluticasone - umeclidinium - vilanterol (trelegy), but was not covered by her insurance. Patient was prescribed hviaiqtpgm-mnxwlvki-pavnzsozsn (Breztri) on 12/07/24, which also requires PA - previously prescribed: fluticasone furonate / vilanterol (Breo); umeclidinium (Incruse); - continue albuterol HFA and neb prn - continue working on smoking cessation - Prescribed prednisone and antibiotic today Assessment & Plan (12/28/2024 12:14 PM EDT): - followed by [facility] pulmonology and lung cancer screening program, last seen by Dr. Olivera in Dec 2024 and for lung cancer screening in Apr 2023 - frequency of exacerbation requiring antibiotic and prednisone, every 2-3 mo - 12/07/24. Rx doxycycline and prednisone. - September 2024. Tx azithromycin and prednisone - most recent hospitalization in Jun 2024 for sepsis, Influenza A, and pneumonia. Treated with steroid, ostelamivir, and oxygen. - current medications: budesonide / formoterol (Symbicort) and tiotropium (Spiriva) - pt was prescribed fluticasone - umeclidinium - vilanterol (trelegy), but was not covered by her insurance. Patient was prescribed clibveswsg-ocugcynd-fuduicwhwe (Breztri) on 12/07/24, which also requires PA - previously prescribed: fluticasone furonate / vilanterol (Breo); umeclidinium (Incruse); - continue albuterol HFA and neb prn - continue working on smoking cessation - Prescribed prednisone and antibiotic today Assessment & Plan (10/01/2024 5:46 PM EDT): - followed by [facility] pulmonology and lung cancer screening program, last seen by Dr. Olivera in Dec 2022 and for lung cancer screening in Apr 2023 - most recent exacerbation today, September 2024. Tx azithromycin and prednisone - most recent hospitalization in Jun 2024 for sepsis, Influenza A, and pneumonia. Treated with steroid, ostelamivir, and oxygen. - pt was prescribed fluticasone / umeclidinium / vilanterol, but was not covered by her insurance - continue flluticasone furoate / vilanterol - continue umeclidinium - continue albuterol HFA and neb prn - continue working on smoking cessation - Prescribed prednisone and antibiotic today Assessment & Plan (07/03/2024 8:53 AM EST): - followed by [facility] pulmonology and lung cancer screening program, last [...] (06/02/2024 5:24 PM EST): - followed by [facility] pulmonology and lung cancer screening program, last [...] PM EDT): - followed by Dr. Olivera, [facility] pulmonology, last seen in Apr 2023 - [...] PM EDT): - followed by Dr. Olivera, [facility] pulmonology, last seen in Dec 2022 - [...] PM EST): - followed by Dr. Olivera, [facility] pulmonology, last seen in Dec 2022 - [...] AM EDT): - followed by Dr. Olivera, [facility] pulmonology, last seen in October 2022 - [...] pain 04/30/2022 Nausea 08/18/2018 Assessment & Plan (09/27/2024 11:48 PM EDT): - evaluated by GI - EGD and colonoscopy on 07/24/20 focal esophagitis and hyperplastic polyp in sigmoid colon - s/p small bowel resection and lysis of adhesions on 03/25/21 for small bowel obstruction from extensive postop adhesions, with a segment of small bowel with stricturing, and a 2nd segment with patchy ischemic changes - continue ondansetron prn - Prescribed azithromycin (Zithromax) 250 MG tablet 09/25/24 - Prescribed ondansetron ODT (Zofran-ODT) 4 MG disintegrating tablet 09/25/24 Assessment & Plan (04/22/2023 5:27 PM EST): [...] ondansetron prn Osteoporosis 08/18/2018 Assessment & Plan (03/22/2025 12:13 PM EST): - followed by [facility] Endocrinology, last seen in Dec 2022 - Risk factor is early menopause after TAHBSO at the age of 29 - completed [...] continue weight-bearing exercise - continue nutritional supplement - Pt had a DEXA Scan scheduled for 09/26/24, but missed. Advised her to reschedule DEXA appointment. - reminded about upcoming appointment with endocrinology on 03/28/2025 Assessment & Plan (12/28/2024 11:38 AM EDT): - followed by [facility] Endocrinology, last seen in Dec 2022 - [...] continue weight-bearing exercise - continue nutritional supplement - Pt had a DEXA Scan scheduled for 09/26/24, but missed. Advised her to reschedule DEXA appointment. - re-refer to Endo Assessment & Plan (10/01/2024 5:43 PM EDT): - followed by [facility] Endocrinology, last seen in Dec 2022 - [...] continue weight-bearing exercise - continue nutritional supplement - Pt has a DXA Scan scheduled for 09/26/24 Advised to follow up with [facility] Endo. Assessment & Plan (07/03/2024 8:53 AM EST): - followed by [facility] Endocrinology, last seen in Dec 2022 - [...] nutritional supplement Advised to follow up with [facility] Endo. Assessment & Plan (06/02/2024 5:35 PM EST): - followed by [facility] Endocrinology, last seen in Dec 2022 - [...] nutritional supplement Advised to follow up with [facility] Endo. Assessment & Plan (02/19/2024 6:47 PM EDT): - followed by [facility] Endocrinology, Dr. Martini, encouraged to schedule appt. - previously on bisphosphonate, but pt discontinued due to side effects and was seen by Dr. Martini to discuss about alternative medications - work on smoking cessation - continue weight-bearing exercise - continue nutritional supplement Assessment & Plan (09/07/2023 9:54 PM EDT): - followed by [facility] Endocrinology, Dr. Martini - previously on bisphosphonate, but pt discontinued due to side effects - work on smoking cessation - continue weight-bearing exercise - continue nutritional supplement Assessment & Plan (04/22/2023 5:39 PM EST): - followed by [facility] Endocrinology, Dr. Martini - previously on bisphosphonate, but pt discontinued due to side effects - work on smoking cessation - continue weight-bearing exercise - continue nutritional supplement Assessment & Plan (11/26/2022 7:34 AM EDT): - followed by [facility] Endocrinology, Dr. Martini - continue bisphosphonate - work on smoking cessation - continue weight-bearing exercise - continue nutritional supplement Insomnia 04/06/2018 Postablative ovarian failure 04/06/2018 H/O: hysterectomy 01/28/2017 Macrocytosis without anemia 01/28/2017 Dyslipidemia 01/28/2017 Assessment & Plan (12/28/2024 11:33 AM EDT): - Last lipid profile: 07/03/2024 total cholesterol 241; LDL 138; HDL 86; triglyceride 88 - She has high HDL which is a protective factor - 10-year ASCVD risk is 4%. The benefit of statin therapy is uncertain - Continue working on lifestyle modifications especially smoking cessation Depression 07/31/2013 Assessment & Plan (03/22/2025 12:15 PM EST): - PHQ9 score 18 on 03/25/2025 - DARIEL 7 score 7 in 08/07/2024 - survivor of IPV - lost her son in 2014 and her mother in 2017 - evaluated by behavioral health service in the past - anxious due to abdominal pain / fear of having another abdominal surgery - Continue Amitriptyline (initially started for fibromyalgia) - Continue duloxetine - Continue following up with therapy Assessment & Plan (06/02/2024 5:52 PM EST): [...] nutritional supplement Fibromyalgia 07/31/2013 Assessment & Plan (03/22/2025 12:18 PM EST): - continue amitriptyline - continue duloxetine - continue judicious byron of gabapentin, increased dose to 600 mg, 3 times daily. - continue lidocaine patch - continue diclofenac topical - stress reduction - receiving trigger point injection by Dr. Knott, last treatment on 2025 Assessment & Plan (06/02/2024 5:50 PM EST): [...] 07/31/2013 Tobacco dependence 07/31/2013 Assessment & Plan (03/22/2025 12:19 PM EST): - 30 pack year - chest CT in Apr 2023, Lung-RADS 2, stable RUL nodules. Follow up in 1 year - last chest CT in Jun 2024 (during hospitalization, not for lung cancer screening). Centrilobular emphysema. Pulmonary nodules. - work on smoking cessation - Pt stopped smoking briefly after hospitalization in Jun 2024, but restarted. Continue working on smoking cessation - Dr. Olivera recently prescribed varenicline. Continue Assessment & Plan (12/28/2024 12:11 PM EDT): - 30 pack year - chest CT in Apr 2023, Lung-RADS 2, stable RUL nodules. Follow up in 1 year - last chest CT in Jun 2024 (during hospitalization, not for lung cancer screening). Centrilobular emphysema. Pulmonary nodules. - work on smoking cessation - Pt stopped smoking briefly after hospitalization in Jun 2024, but restarted. Continue working on smoking cessation - Dr. Olivera recently prescribed varenicline. Continue Assessment & Plan (10/01/2024 5:50 PM EDT): - 30 pack year - chest CT in Apr 2023, Lung-RADS 2, stable RUL nodules. Follow up in 1 year - last chest CT in Jun 2024 (during hospitalization, not for lung cancer screening). Centrilobular emphysema. Pulmonary nodules. - work on smoking cessation - Pt stopped smoking briefly after hospitalization in Jun 2024, but restarted. Continue working on smoking cessation Assessment & Plan (07/03/2024 10:14 AM EST): [...] Problem Noted Date Diagnosed Date Resolved Date Acidosis, lactic 10/23/2024 12/28/2024 Acute hypokalemia 10/23/2024 12/28/2024 Influenza A 10/23/2024 12/27/2024 Hypoxia 06/12/2024 10/01/2024 Assessment & Plan (06/12/2024 12:16 PM EST): 59 year old woman with COPD/asthma overlap syndrome presents with 4 days SOB and cough found to be hypoxic with evidence of mild respiratory distress. Not improved after albuterol therapy. Pt sent to ER via ambulance for further evaluation and treatment. She agrees with the plan. Her daughter was notified. History of surgical procedure 01/30/2024 12/28/2024 Pharyngitis 01/30/2024 02/12/2024 Vomiting 01/30/2024 02/19/2024 SBO (small bowel obstruction) 09/07/2023 02/19/2024 Assessment & Plan (09/11/2023 5:45 AM EDT): - hospitalized in August 2023 - improved with bowel rest, no NGT or surgery were required - still recovering from recent SBO - continue regular BM and nutritional supplementation Abnormal liver function 01/28/2017 1010/2023 Assessment & Plan (09/11/2023 5:49 AM EDT): - elevated AP - most recent abd CT did not reveal liver pathology. Encounters Date Type Department Care Team Description 03/22/2025 1:00 PM EST Office Visit [facility] [address] [place] [id number] Janice Yap ANP Acute head injury, initial encounter (Primary Dx); Bilateral arm pain; Fall on stairs, initial encounter; Dizziness; Nausea 03/22/2025 Orders Only [facility] External Provider, [facility] 03/22/2025 Travel 03/22/2025 Telephone [facility] [address] [place] [id number] Lurdes Lo MD Nurse Triage 03/21/2025 11:30 AM EST Office Visit [address] [address] Lurdes Lo MD Osteoporosis without current pathological fracture, unspecified osteoporosis type (Primary Dx); Current severe episode of major depressive disorder without psychotic features, unspecified whether recurrent (CMS/HCC) (HCC); Rheumatoid factor positive with cyclic citrullinated peptide (CCP) antibody negative; Positive CAROLIN (antinuclear antibody); Fibromyalgia; Pulmonary nodules; Asthma with COPD (CMS/HCC) (HCC); Tobacco dependence; Smoking greater than 20 pack years; Trigger ring finger of left hand 03/21/2025 Travel 03/20/[address] [address] Lurdes Lo MD chart prep 03/13/2025 Refill [facility] [address] [place] [address] Lurdes Lo MD 03/07/2025 Refill [facility] [address] [place] [address] Lurdes Lo MD 03/06/[address] [address] Lurdes Lo MD 2025 12:30 PM EDT Procedure Visit [address] [address] Makayla Knott MD Spasm of left trapezius muscle (Primary Dx) 2025 Travel 01/28/[address] [address] Lurdes Lo MD Chart Prep 01/11/2025 8:30 AM EDT Office Visit [facility] [address] [place] [id number] Altamirano-Lugo, Jayashree, DDS Edentulism (Primary Dx) 01/11/[address] [address] Lurdes Lo MD Patient Education 01/11/[address] [address] [place] Elena [facility] Telephone Call 12/27/2024 11:30 AM EDT Office Visit [facility] [address] [place] [address] Altamirano-Lugo, Jayashree, DDS Edentulism (Primary Dx) 12/27/2024 10:15 AM EDT Office Visit [address] [id number] Lurdes Lo MD Dyslipidemia (Primary Dx); Osteoporosis without current pathological fracture, unspecified osteoporosis type; Vitamin D deficiency; Tobacco dependence; Asthma with COPD (CMS/HCC); Transaminitis; Encounter for immunization; Rheumatoid factor positive with cyclic citrullinated peptide (CCP) antibody negative; Positive CAROLIN (antinuclear antibody); Polyarthralgia; Smoking greater than 20 pack years; Pulmonary nodules 12/27/2024 Travel 12/26/2024 Telephone [facility] [address] [place], [place] [id number] Lurdes Lo MD chart prep from Last 3 Months Immunizations Immunization Administration Dates Next Due Hep A, Adult 07/03/2024 Hep B, adult 12/27/2024,07/03/2024 HepB-CpG 09/07/2023 Influenza injectable quadriv alent IIV4 with preservative 01/24/2019,04/06/2018 Influenza injectable quadrivalent preservative f ree 03/14/2023 Influenza, seasonal, injectable, preservative fr ee 02/13/2024,04/28/2018 Moderna Covid-19 Vaccine 12+ 10/02/2020,09/05/19 Pneumococcal Conjugate PCV 20 04/05/2023 Tdap 04/05/2023 [...] Answer Date Recorded Patient Health Questionnaire-9 Score 18 03/21/2025 Patient Health Questionnaire-9 Score 18 03/21/2025 Last PHQ-9: Questionnaire Data Not on file 1 05/21/2024 Housing Stability Answer Date Recorded What is your housing situation today? I have rasmes jarrett 02/21/[address] you [...] the past 12 months, has t he [employer], gas, oil or water company threatened to shut off services in your home? No 02/21/2023 Depression Answer Date Recorded Patient Health Questionnaire-2 Score 5 03/21/2025 Internet Access Answer Date Recorded Internet Access Q1 Yes 01/07/2024 Internet Access Q2 Not on file 01/07/2024 Comments No Sex and Gender Information Value Date Recorded Sex Assigned at Female 03/08/2022 10:23 AM EDT Legal Sex Female 10:23 AM EDT Gender Identity Female 03/08/2022 10:23 AM EDT Sexual Orientation Straight 03/08/2022 10 :23 AM EDT Last Filed Vital Signs Vital Sign Reading Time Taken Comments Blood Pressure 110/70 03/22/2025 1:00 PM EST Pulse 76 03/22/2025 1:00 PM EST Temperature 36.7 C (98.1 F) 03/22/2025 1:00 PM EST Respiratory Rate 14 03/22/2025 1:00 PM EST Oxygen Saturation 96% 03/22/2025 1:00 PM EST Inhaled Oxygen Concentration - - Weight 52.6 kg (116 lb) 03/22/2025 1:00 PM EST Height 160 cm (5' 3 ) 03/22/2025 1:00 PM EST Body Mass Index 20.55 03/22/2025 1:00 PM EST Plan of Treatment Health Maintenance Due Date Last Done Comments CT Colonography 1967 FIT DNA/Cologuard 1967 FIT 1967 FOBT 1967 Sigmoidoscopy 1967 Pap Smear 01/30/1988 HPV/Cotest 1997 RSV Patients and Patients Aged 60 years or older (1 - Risk 50-74 years 1-dose series) 2017 Dental Prophylaxis 05/28/2023 11/24/2022, 1 , 05/13/2016 Dental Oral Exam 08/24/2023 02/21/2023, , 02/09/2022, Additional history exists Zoster Vaccines (2 of 2) 11/02/2023 09/07/2023 Lung Cancer Screening 04/29/2024 04/29/2023 COVID-19 Vaccine ( season) 2025 10/02/2020, 09/04/2020 Influenza Vaccine (#1) 2025 , 03/14/2023, 01/24/2019, Additional history exists SDOH Screening 06/15/2025 06/15/2024 Colonoscopy 07/15/2025 07/15/2020 Colorectal Cancer Screening 07/15/2025 Depression Monitoring 09/18/2025 03/21/2025, 025 Disability Screening 09/25/2025 09/25/2024 Mammogram 09/26/2025 09/27/2023 Alcohol/Substance Use Screening 03/21/2026 03/21/2025 Tobacco Screening 03/22/2026 03/22/2025 Dental X-Ray: Full Mouth 10/25/2027 10/23/2024, 12/08 Lipid Panel 07/03/2029 07/03/2024, 05/10, 11/25/2022 DTaP/Tdap/Td Vaccines (2 - Td or Tdap) 04/05/2033 04/05/2023 Dental X-Ray: Bitewings Discontinued 09/01/19, 06/19/2019, 05/03/2018, Additional history exists Pneumococcal Vaccine: 50+ Years Completed 04/05/2023 HIV Screening Completed 07/03/2024 Hepatitis A Vaccines Aged Out 07/03/2024 No long er eligible based on patient's age to complete this topic Hepatitis C Screening Completed 07/03/2024 Hepatitis B Vaccines Completed 12/27/2024, 07/03/2024, 09/07/2023 Cervical Cancer Screening Discontinued HIB Vaccines Aged Out No longer eligi [...] Name Priority Date/Time Associated Diagnosis Comments CT CERVICAL SPINE WO CONTRAST Routine 03/22/2025 3:[address] HEAD WO CONTRAST Routine 03/22/2025 3 :40 PM EST CASE PRESENTATION, DETAILED AND EXTENSIVE TREATMENT PLANNING Routine 01/11/2025 8:30 AM EDT Edentulism Max COMPLETE DENTURE - MAXILLARY Routine 01/11/2025 8:30 AM EDT Edentulism WAX TRY IN Routine 12/27/2024 11:30 AM EDT Edentulism PANORAMIC RADIOGRAPHIC IMAGE Routine 10/23/2024 10:00 AM EDT Dental caries Tooth impaction HEPATITIS C AB W/REFL TO HCV RNA, QN, PCR Routine 07/03/2024 10:56 AM EST Routine screening for STI (sexually transmitted infection) HIV 1/2 ANTIGEN/ANTIBODY, FOURTH GENERATION W/RFL Routine 07/03/2024 10:56 AM EST Routine screening for STI (sexually transmitted infection) LIPID PANEL WITH REFLEX TO DIRECT LDL Routine 07/03/2024 10:56 AM EST Pure hypercholesterolemia BI MAMMOGRAM SCREENING TOMOSYNTHESIS BILATERAL Routine 09/27/2023 12:26 PM EDT Breast cancer screening by mammogram LDCT LUNG SCREENING Routine 04/29/2023 10:15 AM EST PERIODIC ORAL EVALUATION - ESTABLISHED PATIENT Routine 02/21/2023 3:30 PM EDT Encounter for dental examination Dental caries PROPHYLAXIS - ADULT Routine 11/24/2022 3 :00 PM EDT BITEWING - SINGLE RADIOGRAPHIC IMAGE Routine 08/31/2021 12:00 AM EDT HM COLONOSCOPY Routine 07/15/2020 from Last 3 Months or Most Recently Relevant to Health Maintenance Results * CT Cervical Spine w/o Contrast (03/22/2025 3:40 PM EST) Anatomical Region Laterality Modality Spine, C-spine Computed Tomogra phy 03/22/2025 3:40 PM EST Narrative 03/22/2025 4:31 PM EST [address] [address] [address] Scan Report Signed Patient: Leda Gudino MR# : [id number] : 1965 Acct:[id number] Age/Sex: 60 / F ADM Date: 03/22/25 Loc: HO.ED Attending Dr: Ordering Physician: Linda Nunez NP Date of Service: 03/22/25 Procedure(s): CT cervical spine wo IV con Accession Number(s): [id number] cc: Lurdes Lo MD; Linda Nunez NP Report Number: [id number]: Total DLP = 214.23 mGy-cm Reason for Exam: fall down stairs, neck pain EXAMINATION: CT CERVICAL SPINE WITHOUT CONTRAST CLINICAL INFORMATION: Fall, pain. COMPARISON: None available. TECHNIQUE: Axial imaging. Sagittal and coronal reconstructions. This CT examination was performed using dose optimization techniques as appropriate, variously including the following: *Automated exposure control *Adjustment of mA and/or kV according to patient size (this includes techniques or standardized protocols for targeted exams where dose is matched to indication/reason for exam; i.e. extremities or head) *Use of iterative reconstruction technique FINDINGS: Craniocervical and atlantoaxial articular ration is maintained. Predens space is maintained. Straightening of the cervical curvature. Vertebral body heights are maintained. No evidence of acute fracture or traumatic subluxation. Vertebral body heights are maintained. Disc spaces are maintained. The central bony canal is maintained. No suspicious bony lesions. No prevertebral soft tissue swelling. No suspicious thyroid findings. Biapical pleural parenchymal scarring. CT/CT cervical spine wo IV con IMPRESSION: No CT evidence of acute fracture or traumatic subluxation. Fleischner guidelines were followed. Electronically signed by: Sean Hughes MD 03/22/2025 04:28 PM EST Dictated By: Sean Hughes MD Signed By: <Electronically signed by Sean Hughes MD in OV> 03/22/25 1628 DD/ 1540 TD/TT: 03/22/25 1620 Lean Manufacturing Specialist: ABNER Procedure Note Donotuseinterpreter, Image - 03/22/[address] [place] [address] [address] Scan Report Signed Patient: Leda GudinoMR# : [id number] : 1965Acct:[id number] Age/Sex: 60 / FADM Date: 03/22/25 Loc: HO.ED Attending Dr: Ordering Physician: Linda Nunez NP Date of Service: 03/22/25 Procedure(s): CT cervical spine wo IV con Accession Number(s): [id number] cc: Lurdes Lo MD; Linda Nunez NP Report Number: [id number]: Total DLP = 214.23 mGy-cm Reason for Exam: fall down stairs, neck pain EXAMINATION: CT CERVICAL SPINE WITHOUT CONTRAST CLINICAL INFORMATION: Fall, pain. COMPARISON: None available. TECHNIQUE: Axial imaging. Sagittal and coronal reconstructions. This CT examination was performed using dose optimization techniques as appropriate, variously including the following: *Automated exposure control *Adjustment of mA and/or kV according to patient size (this includes techniques or standardized protocols for targeted exams where dose is matched to indication/reason for exam; i.e. extremities or head) *Use of iterative reconstruction technique FINDINGS: Craniocervical and atlantoaxial articular ration is maintained. Predens space is maintained. Straightening of the cervical curvature. Vertebral body heights are maintained. No evidence of acute fracture or traumatic subluxation. Vertebral body heights are maintained. Disc spaces are maintained. The central bony canal is maintained. No suspicious bony lesions. No prevertebral soft tissue swelling. No suspicious thyroid findings. Biapical pleural parenchymal scarring. CT/CT cervical spine wo IV con IMPRESSION: No CT evidence of acute fracture or traumatic subluxation. Fleischner guidelines were followed. Electronically signed by: Sean Hughes MD 03/22/2025 04:28 PM EST RP Dictated By: Sean Hughes MD Signed By: <Electronically signed by Sean Hughes MD in OV> 03/22/25 1628 DD/ 1540 TD/TT: 03/22/25 1620 Lean Manufacturing Specialist: ABNER [facility] External Provider IMG CT PROCEDURES Final Result * CT Head w/o Contrast (03/22/2025 3:40 PM EST) Anatomical Region Laterality Modality Head, Neck Computed Tomogra phy 03/22/2025 3:40 PM EST Narrative 03/22/2025 4:29 PM EST [place] [address] CT Scan Report Signed Patient: Leda Gudino MR# : [id number] : 1965 Acct:[id number] Age/Sex: 60 / F ADM Date: 03/22/25 Loc: HO.ED Attending Dr: Ordering Physician: Linda Nunez NP Date of Service: 03/22/25 Procedure(s): CT head/brain wo IV con Accession Number(s): [id number] cc: Lurdes Lo MD; Linda Nunez NP Report Number: [id number]: Total DLP = 648.13 mGy-cm Reason for Exam: fall with head strike, vomited EXAMINATION: CT HEAD WITHOUT CONTRAST CLINICAL INFORMATION: fall with head strike, vomited COMPARISON: 12/29/2019 TECHNIQUE: Contiguous axial imaging was performed from the skull base to vertex without intravenous administration of contrast. This CT examination was performed using dose optimization techniques as appropriate, variously including the following: *Automated exposure control *Adjustment of mA and/or kV according to patient size (this includes techniques or standardized protocols for targeted exams where dose is matched to indication/reason for exam; i.e. extremities or head) *Use of iterative reconstruction technique FINDINGS: There is no acute ischemic change. There is no intracranial hemorrhage. There is no mass-effect or midline shift. Basal cisterns and ventricles are within normal limits for age/cerebral volume. Orbits are symmetrical and unremarkable. Paranasal sinuses and mastoid air cells are pneumatized. There are no bony abnormalities. CT/CT head/brain wo IV con IMPRESSION: No acute intracranial abnormality. Electronically signed by: Harman Resendiz MD 03/22/2025 04:27 PM [facility] Dictated By: Harman Resendiz MD Signed By: <Electronically signed by Harman Resendiz MD in OV> 03/22/25 1627 DD/ 1540 TD/TT: 03/22/25 1619 Lean Manufacturing Specialist: Procedure Note Donotuseinterpreter, Image - 03/22/[address] [place] [address] [address] Scan Report Signed Patient: Leda GudinoMR# : [id number] : 1965Acct:[id number] Age/Sex: 60 / FADM Date: 03/22/25 Loc: HO.ED Attending Dr: Ordering Physician: Linda Nunez NP Date of Service: 03/22/25 Procedure(s): CT head/brain wo IV con Accession Number(s): [id number] cc: Lurdes Lo MD; Linda Nunez NP Report Number: [id number]: Total DLP = 648.13 mGy-cm Reason for Exam: fall with head strike, vomited EXAMINATION: CT HEAD WITHOUT CONTRAST CLINICAL INFORMATION: fall with head strike, vomited COMPARISON: 12/29/2019 TECHNIQUE: Contiguous axial imaging was performed from the skull base to vertex without intravenous administration of contrast. This CT examination was performed using dose optimization techniques as appropriate, variously including the following: *Automated exposure control *Adjustment of mA and/or kV according to patient size (this includes techniques or standardized protocols for targeted exams where dose is matched to indication/reason for exam; i.e. extremities or head) *Use of iterative reconstruction technique FINDINGS: There is no acute ischemic change. There is no intracranial hemorrhage. There is no mass-effect or midline shift. Basal cisterns and ventricles are within normal limits for age/cerebral volume. Orbits are symmetrical and unremarkable. Paranasal sinuses and mastoid air cells are pneumatized. There are no bony abnormalities. CT/CT head/brain wo IV con IMPRESSION: No acute intracranial abnormality. Electronically signed by: Harman Resendiz MD 03/22/2025 04:27 PM EST RP Dictated By: Harman Resendiz MD Signed By: <Electronically signed by Harman Resendiz MD in OV> 03/22/25 1627 DD/ 1540 TD/TT: 03/22/25 1619 Lean Manufacturing Specialist: [facility] External Provider IMG CT PROCEDURES Final Result * (ABNORMAL) Lipid Panel with Reflex to Direct LDL (07/03/2024 10:56 AM EST) Triglycerides 88 <150 mg/dL [facility] Comment:Desirable Triglyceri de: less than 150 mg/dLBorderline High Triglyceride 150-199 mg/dLHigh Triglyceride: 200-499 mg/dLVery High Triglyceride: greater than or equal to 5OO mg/dL Cholesterol 241(H) <200 mg/dL [facility] Comment:Desirable Cholestero l: less than 200 mg/dLBorderline High Cholesterol: 200-239 mg/dLHigh Cholesterol: greater than 239 mg/dL LDL Cholesterol Calculated 138(H) <100 mg/dL [facility] Comment:Desirable LDL: less than 100 mg/dLNear Optimal/Above Optimal LDL: 110- 129 mg/dLBorderline High LDL: 130-159 mg/dLHigh LDL: 160-189 mg/dLVery High LDL: greater than or equal to 190 mg/dL HDL Cholesterol 86 >40 mg/dL [facility] Comment:Desirable HDL: great er than 40 mg/dL Note: This HDL assay may give artificially low results in patients with liver disease. Blood 07/03/2024 10:5 6 AM EST 07/03/2024 11:30 AM EST Lurdes Lo MD LAB BLOOD ORDERABLES Final Resul t Performing Organization Address [facility] Co de Phone Number [facility] [address] [place] [phone] * Hepatitis C Antibody with Reflex to HCV, RNA, Quantitative, Real-Time PCR (07/03/2024 10:56 AM EST) Hepatitis C Antibody Nonreactive Nonreactive [facility] Comment:Antibodies to HCV no t detected; does not exclude early acuteHCV infection. Blood Venous blood specimen / Unknown 07/03/2024 10:56 AM EST 07/03/2024 11:30 AM EST Lurdes Lo MD LAB BLOOD ORDERABLES Final Resul t Performing Organization Address [facility] de Phone Number [facility] [address] [place] [phone] * HIV-1/2 Antigen and Antibodies, Fourth Generation, with Reflexes (07/03/2024 10:56 AM EST) HIV AB/AG Nonreactive Nonreactive [facility] Comment:HIV-1 p24 Ag and/or HIV-1/HIV-2 Ab not detected.A test result that is nonreactive does not exclude thepossibility of exposure to or infection with HIV-1 and/orHIV-2. Nonreactive results in this assay for individualswith prior exposure to HIV-1 and/or HIV-2 may be due toantigen and antibody levels that are below the limit ofdetection of this assay.The [employer] HIV Ag/Ab Combo assay result andsupplemental assay results should be interpreted inconjunction with the patient's clinical presentation,history and other laboratory results. If the results areinconsistent with clinical evidence, additional testing issuggested to confirm the result. Blood Venous blood specimen / Unknown 07/03/2024 10:56 AM EST 07/03/2024 11:30 AM EST us Lurdes Lo MD LAB BLOOD ORDERABLES Final Resul t [facility] [address] [place] [phone] * BI Mammogram Screening Tomosynthesis Bilateral (09/27/2023 12:26 PM EDT) Anatomical Region Laterality Modality Breast Bilateral Mammography 09/27/2023 12:2 6 PM EDT Narrative 10/28/2023 7:07 AM EDT [address] [place] [address] Mammography Report Signed Patient: Leda Gudino MR# : [id number] : 1965 Acct:[id number] Age/Sex: 58 / F ADM Date: 09/27/23 Loc: VÍCTOR Attending Dr: Lurdes Lo MD Ordering Physician: Lurdes Lo MD Results: 1Negative Date of Service: 09/27/23 Follow Up: 1 Year From [facility] Mammogram Procedure(s): MM tomosynthesis screening BI Accession Number(s): [id number] cc: Lurdes Lo MD EXAMINATION: MM SCREENING [...] in OV> 10/28/23 0704 DD/ 1226 TD/TT: Lean Manufacturing Specialist: Procedure Note Donotuseinterpreter, Image - 10/28/2023 [facility] [address] [place] [address] Mammography Report Signed Patient: Leda GudinoMR# : [id number] : 1965Acct:[id number] Age/Sex: 58 / FADM Date: 09/27/23 Loc: VÍCTOR Attending Dr: Lurdes Lo MD Ordering Physician: Lurdes Lo MDResults: 1Negative Date of Service: 09/27/23Follow Up: 1 Year From Orig inal Mammogram Procedure(s): MM tomosynthesis screening BI Accession Number(s): [id number] cc: Lurdes Lo MD EXAMINATION: MM SCREENING [...] in OV> 10/28/23 0704 DD/ 1226 TD/TT: Lean Manufacturing Specialist: Lurdes Lo MD IMG BI PROCEDURES Final Result * CT Lung Screening Low dose (04/29/2023 10:15 AM EST) Anatomical Region Laterality Modality Lung Computed Tomogra phy 04/29/2023 10:1 5 AM EST Narrative 05/13/2023 2:52 PM EST [address] [address] [address] Scan Report Signed Patient: Leda Gudino MR# : [id number] : 1965 Acct:[id number] Age/Sex: 58 / F ADM Date: 04/29/23 Loc: HO.CT Attending Dr: Maxine Matos PA-C Ordering Physician: Maxine Matos PA-C Date of Service: 04/29/23 Procedure(s): CT lung screening Accession Number(s): [id number] cc: Maxine Matos PA-C; Lurdes Lo MD [...] in OV> 05/13/23 1449 DD/ 1015 TD/TT: Lean Manufacturing Specialist: Procedure Note Donotuseinterpreter, Image - 05/13/[address] [address] [address] Scan Report Signed Patient: Leda GudinoMR# : [id number] : 1965Acct:[id number] Age/Sex: 58 / FADM Date: 04/29/23 Loc: HO.CT Attending Dr: Maxine Matos PA-C Ordering Physician: Maxine Matos PA-C Date of Service: 04/29/23 Procedure(s): CT lung screening Accession Number(s): [id number] cc: Maxine Matos PA-C; Lurdes Lo MD [...] in OV> 05/13/23 1449 DD/ 1015 TD/TT: Lean Manufacturing Specialist: [facility] External Provider IMG CT PROCEDURES Final Result * Hm Colonoscopy (07/15/2020) Colonoscopy Normal Normal 07/15/2020 [facility] Unassigned Pcp HEALTH MAINTENANCE Edited Result - Final from Last 3 Months or Most Recently Relevant to Health Maintenance [place] [address] [place] [address] [facility] MEDICAID STAND ADULT Care Teams Second Worker Relationship Specialty Start Date End Date Lurdes Lo MD [address] [place] [address] PCP - General Family Medicine 08/09/22 Ahmet Lombardo, PharmD [address] [place] [address] Pharmacist Internal Medicine 09/03/22 Deepti Boo Environmental Service AideDrum Dyeing Machine Operator 06/13/23 Home Care [facility] 03/05/24
--- OUTSIDE RECORDS SUMMARY | 2025-03-28 19:33 | XMS_ITS | Encounter Summary ---
Author Organization [employer] Address [address] [facility] [address] [place] [address] Care Team Providers Care Health And Safety Technician Name Role Phone Lurdes Lo MD Primary Care Provider [phone] Ahmet Lombardo PharmD Unavailable [phone] Reason for Referral * Consultation (Routine) - Closed Specialty Diagnoses / Procedures Referred By Contac t Referred To Contact Rheumatology Diagnoses Polyarthralgia Elevated antinuclear antibody (CAROLIN) level Rheumatoid factor positive with cyclic citrullinated peptide (CCP) antibody negative Lurdes Lo MD [address] [place] [address] Phone: tel: fax: [facility] [address] Phone: tel: fax: Referral ID Status Reason Start Date Expiration Date V isits Requested Visits Authorized [id number] Closed Specialty Services Required 06/07/2024 06/07/2025 12 12 Encounter Details Date Type Department Care Team (Late st Contact Info) Description 06/07/2024 Orders Only [facility] [address], [place] [phone] Lurdes Lo MD [address], [place] [phone] Polyarthralgia (Primary Dx); Elevated antinuclear antibody (CAROLIN) [...] PM EST Narrative 06/12/2024 5:01 PM EST [address] [address] [address] Scan Report Signed with Addenda Patient: Leda Gudino MR# : [id number] : 1965 Acct:[id number] Age/Sex: 59 / F ADM Date: 06/12/24 Loc: [facility] [address]: Sameer Diamond MD Ordering Physician: Augustin Urbina MD Date of Service: 06/12/24 Procedure(s): CT chest wo IV con Accession Number(s): [id number] cc: Augustin Urbina MD; Lurdes Lo MD Report Number: [id number]: Total DLP = 149.00 mGy-cm ADDENDUM ADDENDUM #1 Emphysema present: Mild. An independent risk factor for lung cancer. Consider entry of patient into a program of yearly low dose Lung CT scanning. Electronically signed by: Cirilo Quezada MD 10/03/2024 08:09 PM EDT Addendum Dictated By: Cirilo Quezada MD Addendum Signed By: <Electronically signed by Cirilo Quezada MD in OV> 10/03/242008 Addendum Cosigned By: DD/ /31/1605 TD/TT: 06/12/2409/01/1619 EXAMINATION: CT CHEST WITHOUT CONTRAST CLINICAL INFORMATION: [...] iterative reconstruction technique DLP: 149 mGy/cm. FINDINGS: JEWEL INSERTER: Hyperinflated lungs. LUNGS: There is mild centrilobular [...] by: Cirilo Quezada MD 06/12/2024 04:58 PM [facility] Dictated By: Cirilo Quezada MD Signed By: <Electronically signed by Cirilo Quezada MD in OV> 06/12/24 1658 DD/ 1606 TD/TT: 06/12/24 1620 Power System Electrical Engineer: [facility] Procedure Note Donotuseinterpreter, Image - 10/03/[address] [address] [address] Scan Report Signed with Addenda Patient: Leda GudinoMR# : [id number] : 1965Acct:[id number] Age/Sex: 59 / FADM Date: 06/12/24 Loc: [facility] 476-[address]: Sameer Diamond MD Ordering Physician: Augustin Urbina MD Date of Service: 06/12/24 Procedure(s): CT chest wo IV con Accession Number(s): [id number] cc: Augustin Urbina MD; Lurdes Lo MD Report Number: [id number]: Total DLP = 149.00 mGy-cm ADDENDUM ADDENDUM #1 Emphysema present: Mild. An independent risk factor for lung cancer. Consider entry of patient into a program of yearly low dose Lung CT scanning. Electronically signed by: Cirilo Quezada MD 10/03/2024 08:09 PM EDT Addendum Dictated By: Cirilo Quezada MD Addendum Signed By: <Electronically signed by Cirilo Quezada MD in OV> 10/03/242008 Addendum Cosigned By: DD/ /31/1605 TD/TT: 06/12/2409/01/1619 EXAMINATION: CT CHEST WITHOUT CONTRAST CLINICAL INFORMATION: [...] iterative reconstruction technique DLP: 149 mGy/cm. FINDINGS: JEWEL INSERTER: Hyperinflated lungs. LUNGS: There is mild centrilobular [...] by: Cirilo Quezada MD 06/12/2024 04:58 PM [facility] Dictated By: Cirilo Quezada MD Signed By: <Electronically signed by Cirilo Quezada MD in OV> 06/12/24 1658 DD/ 1606 TD/TT: 06/12/24 1620 Power System Electrical Engineer: [facility]RE[facility] External Provider IMG CT PROCEDURES Edited Result - Final documented in this encounter Visit Diagnoses Diagnosis Polyarthralgia- Primary Pain in joint, multiple sites Elevated antinuclear antibody (CAROLIN) level Other and unspecified nonspecific immunological findings Rheumatoid factor positive with cyclic citrullinated peptide (CCP) antibody negative documented in this encounter Additional Health Concerns Assessment Noted Time PHQ-9 Depression Total Score: 8 02/13/20 24 11:13 AM EDT documented as of this encounter Care Teams Health And Safety Technician Relationship Specialty Start Date End Date Lurdes Lo MD [address] [place] [address] PCP - General Family Medicine 08/09/22 Ahmet Lombardo, StellaD [address] [place] [address] Pharmacist Internal Medicine 09/03/22 Deepti Boo Felt PullerPsychiatric Attendant 06/13/23 [facility] 03/05/24 documented as of this encounter
--- OUTSIDE RECORDS SUMMARY | 2025-03-28 19:33 | XMS_ITS | Encounter Summary ---
Author Organization [employer] Address [address] [facility] 7t [place] [address] Care Team Providers Care Coagulation Operator Name Role Phone Lurdes Lo MD Primary Care Provider [phone] Ahmet Lombardo PharmD Unavailable [phone] Reason for Referral * Consultation (Urgent) - Closed Specialty Diagnoses / Procedures Referred By Contac t Referred To Contact Diagnoses Asthma-COPD overlap syndrome (CMS/HCC) (HCC) Tobacco dependence Lurdes Lo MD [address] [place] [address] Phone: tel: fax: [facility] [address] [place] [address] Phone: tel: fax: Referral ID Status Reason Start Date Expiration Date V isits Requested Visits Authorized [id number] Closed Specialty Services Required 07/23/2024 07/23/2025 1 1 Encounter Details Date Type Department Care Team (Late st Contact Info) Description 07/23/2024 Orders Only [facility] MED[facility] [address] [place], [place] [phone] Lurdes Lo MD [address] [place] [address] [phone] Asthma-COPD overlap syndrome (CMS/HCC) (Primary Dx); Tobacco [...] encounter Visit Diagnoses Diagnosis Asthma-COPD overlap syndrome (CMS/HCC) (HCC)- Primary Tobacco dependence Tobacco use disorder documented in this encounter Additional Health Concerns Assessment Noted Time PHQ-9 Depression Total Score: 8 02/13/20 24 11:13 AM EDT documented as of this encounter Care Teams Coagulation Operator Relationship Specialty Start Date End Date Lurdes Lo MD [address] [place] [address] PCP - General Family Medicine 08/09/22 Ahmet Lombardo, StellaD [address] [place] [address] Pharmacist Internal Medicine 09/03/22 Deepti Boo Pipeline WelderOysterman 06/13/23 [facility] 03/05/24 documented as of this encounter
--- OUTSIDE RECORDS SUMMARY | 2025-03-28 19:33 | XMS_ITS | Encounter Summary ---
Author Organization [employer] Address [address] [facility] 7t [place] [address] Care Team Providers Care Plugger Worker Name Role Phone Lurdes Lo MD Primary Care Provider [phone] Ahmet Lombardo PharmD Unavailable [phone] Encounter Details Date Type Department Care Team (Late st Contact Info) Description 08/29/2024 Orders Only [facility] [address] [place], [place] [phone] Lurdes Lo MD [address] [place], [place] [phone] Rheumatoid factor positive with cyclic citrullinated peptide [...] documented as of this encounter Care Teams Plugger Worker Relationship Specialty Start Date End Date Lurdes Lo MD [address] [place] [address] PCP - General Family Medicine 08/09/22 Ahmet Lombardo, PharmD [address] [place] [address] Pharmacist Internal Medicine 09/03/22 Deepti Boo Weaving SupervisorButton Pusher 06/13/23 Home Care [facility] 03/05/24 documented as of this encounter
--- OUTSIDE RECORDS SUMMARY | 2025-03-28 19:33 | XMS_ITS | Encounter Summary ---
Author Organization [employer] Address 75 [facility] 7t [place] [address] Care Team Providers Care Railroad Purchasing Agent Name Role Phone Lurdes Lo MD Primary Care Provider [phone] Ahmet Lombardo PharmD Unavailable [phone] Reason for Referral * Neurology (Routine) - Closed Specialty Diagnoses / Procedures Referred By Controlly t Referred To Contact Diagnoses Polyarthralgia Procedures Nerve conduction test Makayla Knott MD [address] [place] [address] Phone: tel: fax: [facility] [address] [place] [address] Phone: tel: fax: Referral ID Status Reason Start Date Expiration Date Visits Re quested Visits Authorized [id number] Closed 10/16/2024 10/16/2025 1 1 Encounter Details Date Type Department Care Team (Late st Contact Info) Description 10/16/2024 Orders Only [facility] 230 [place], [place] [phone] Makayla Knott MD [address] [place] [address] Polyarthralgia (Primary Dx) Social History Tobacco Use Types Packs/Day Years [...] of this encounter Plan of Treatment Scheduled Orders Name Type Priority Associated Diagnoses Orde r Schedule Nerve conduction test Neurology Routine Polyarthralgia Expected: 10/16/2024 (Approximate), Expires: 10/16/2025 documented as of this encounter Goals Goal Patient Goal Type Associated Problems Recent Progress Patient-Stated? Author Quit using tobacco (cigarettes, smokeless, etc) Tobacco Use No Ahmet Lombardo, StelalD documented as of this encounter Visit Diagnoses Diagnosis Polyarthralgia- Primary Pain in joint, multiple sites documented in this encounter Additional Health Concerns Assessment Noted Time PHQ-9 Depression Total Score: 8 02/13/20 24 11:13 AM EDT documented as of this encounter Care Teams Railroad Purchasing Agent Relationship Specialty Start Date End Date Lurdes Lo MD [address] [place], [place] [phone] PCP - General Family Medicine 08/09/22 Ahmet Lombardo, Ladonna [address] [place] [address] Pharmacist Internal Medicine 09/03/22 Deepti Boo Rail SwitchmanTrolley Cleaner 06/13/23 [facility] 03/05/24 documented as of this encounter
--- OUTSIDE RECORDS SUMMARY | 2025-03-28 19:34 | XMS_ITS | Encounter Summary ---
Author Organization [employer] Address [address] [facility] 7t [place] [address] Care Team Providers Care Plastics Plater Name Role Phone Lurdes Lo MD Primary Care Provider [phone] Ahmet Lombardo PharmD Unavailable [phone] Encounter Details Date Type Department Care Team ([facility] st Contact Info) Description 11/01/2022 Abstract [facility] ADULT DENTAL [address] [place] [address] Jayashree Kellogg DDS [address] [place] [address] Social History Tobacco Use Types Packs/Day Years [...] on filedocumented in this encounter Care Teams Plastics Plater Relationship Specialty Start Date End Date Lurdes Lo MD [address] [place], [place] [phone] PCP - General Family Medicine 08/09/22 Ahmet Lombardo, StellaD [address] [place], [place] [phone] Pharmacist Internal Medicine 09/03/22 Deepti Boo Repairer Kiln CarMash Tub Cooker Operator 06/13/23 [facility] 03/05/24 documented as of this encounter
--- OUTSIDE RECORDS SUMMARY | 2025-03-28 19:34 | XMS_ITS | Encounter Summary ---
Author Organization [employer] Address 75 [facility] 7t [place] [address] Care Team Providers Care Belt Dresser Name Role Phone Lurdes Lo MD Primary Care Provider [phone] Ahmet Lombardo PharmD Unavailable [phone] Reason for Visit * Reason Comments Med Refill Encounter Details Date Type Department Care Team ([facility] Contact Info) Description 02/21/[address] [facility] MEDICINE 230 [place], [place] [phone] [facility] 230 [place], [place] [phone] Social History Tobacco Use Types Packs/Day Years [...] documented as of this encounter Care Teams Belt Dresser Relationship Specialty Start Date End Date Lurdes Lo MD [address] [place] [address] PCP - General Family Medicine 08/09/22 Ahmet Lombardo, PharmD [address] [place] [address] Pharmacist Internal Medicine 09/03/22 Deepti Boo Reed WorkerCattle Knocker 06/13/23 [facility] 03/05/24 documented as of this encounter
--- OUTSIDE RECORDS SUMMARY | 2025-03-28 19:34 | XMS_ITS | Encounter Summary ---
Author Organization [employer] Address 75 [facility] 7t [place] [address] Care Team Providers Care Press Technician Name Role Phone Lurdes Lo MD Primary Care Provider [phone] Ahmet Lombardo PharmD Unavailable [phone] Reason for Visit * Reason Onset Date Comments Appointment 01/05/2023 Encounter Details Date Type Department Care Team ([facility] st Contact Info) Description 01/05/2023 Telephone C ADULT DENTAL [address] [place] [address] Jayashree Kellogg DDS [address] [place] [address] Appointment Social History Tobacco Use Types Packs/Day [...] EDT Could you schedule the pt for tomorrow morning for impresson? Thanks, Dr. Lugo * [...] documented as of this encounter Care Teams Press Technician Relationship Specialty Start Date End Date Ludres Lo MD [address] [place] [address] PCP - General Family Medicine 08/09/22 Ahmet Lombardo, PharmD [address] [place] [address] Pharmacist Internal Medicine 09/03/22 Deepti Boo Biodiesel Processing TechnicianHead Inspector And Center Marker 06/13/23 [facility] 03/05/24 documented as of this encounter
== END 2025-03-28 15:36 | disposition home or self-care (01) ==
LOC: HO.ENCR 14:10
PROVIDERS: PCP Family Medicine; Visit Provider Student in an Organized Health Care Education/Training Program
DX: M81.0 Age-related osteoporosis without current pathological fracture (principal); E55.9 Vitamin D deficiency, unspecified
CPT/HCPCS: 99204

== ENCOUNTER → 2025-03-28 14:09 | Outpatient (BNVA) | payer MEDICAID, SELFPAY | PROVIDERS: PCP Family Medicine; Visit Provider Student in an Organized Health Care Education/Training Program | DX: M81.0 Age-related osteoporosis without current pathological fracture (principal); E55.9 Vitamin D deficiency, unspecified | CPT/HCPCS: 99202 ==

== ENCOUNTER 2025-03-30 08:27 | Outpatient (REF) | payer MEDICAID, SELFPAY ==
--- OUTSIDE RECORDS SUMMARY | 2025-03-30 08:32 | XMS_ITS | Encounter Summary ---
Author Organization [employer] Address 75 [facility] 7t [place] [address] Care Team Providers Care Laboratory Courier Name Role Phone Lurdes Lo MD Primary Care Provider [phone] Ahmet Lombardo PharmD Unavailable Reason for Referral * Neurology (Routine) - Closed Specialty Diagnoses / Procedures Referred By Controlly t Referred To Contact Diagnoses Polyarthralgia Procedures Nerve conduction test Makayla Knott MD 230 [place] [address] Phone: tel: fax: [facility] [address] [place] [address] Phone: tel: fax: Referral ID Status Reason Start Date Expiration Date Visits Re quested Visits Authorized [id number] Closed 10/16/2024 10/16/2025 1 1 Encounter Details Date Type Department Care Team (Late st Contact Info) Description 10/16/2024 Orders Only [facility] MEDICINE 230 [place], [place] [phone] Makayla Knott MD [address] [place], [place] [phone] Polyarthralgia (Primary Dx) Social History Tobacco Use [...] documented as of this encounter Care Teams Laboratory Courier Relationship Specialty Start Date End Date Lurdes Lo MD 230 [place], [place] [phone] PCP - General Family Medicine 08/09/22 Ahmet Lombardo, StellaD [address] [place] [address] Pharmacist Internal Medicine 09/03/22 Deepti Boo Ship/Rec/Doc ControlAviation Technical Systems Specialist 06/13/23 [facility] 03/05/24 documented as of this encounter
--- OUTSIDE RECORDS SUMMARY | 2025-03-30 08:32 | XMS_ITS | Encounter Summary ---
Author Organization [employer] Address 75 [facility] 7t [place] [address] Care Team Providers Care Oracle Scm Consultant Name Role Phone Lurdes Lo MD Primary Care Provider [phone] Ahmet Lombardo PharmD Unavailable [phone] Reason for Visit * Reason Comments Med Refill Encounter Details Date Type Department Care Team ([facility] st Contact Info) Description 12/01/2023 Refill [facility] MED[facility]INE 230 [place], [place] [phone] Lurdes Lo MD [address] [place], [place] [phone] Paresthesia of lower extremity Social History Tobacco [...] documented as of this encounter Care Teams Oracle Scm Consultant Relationship Specialty Start Date End Date Lurdes Lo MD 230 [place] [address] PCP - General Family Medicine 08/09/22 Ahmet Lombardo, PharmD [address] [place] [address] Pharmacist Internal Medicine 09/03/22 Deepti Boo Vice President CompliancePaper Tube Cutter 06/13/23 [facility] 03/05/24 documented as of this encounter
--- OUTSIDE RECORDS SUMMARY | 2025-03-30 08:32 | XMS_ITS | Encounter Summary ---
Author Organization [employer] Address 75 [facility] 7t [place] [address] Care Team Providers Care Deodorizer Operator Name Role Phone Lurdes Lo MD Primary Care Provider [phone] Ahmet Lombardo PharmD Unavailable [phone] Reason for Referral * Consultation (Urgent) - Closed Specialty Diagnoses / Procedures Referred By Contac t Referred To Contact Diagnoses Asthma-COPD overlap syndrome (CMS/HCC) (HCC) Tobacco dependence Lurdes Lo MD [address] [place] [address] Phone: tel: fax: [facility] 230 [place] [address] Phone: tel: fax: Referral ID Status Reason Start Date Expiration Date V isits Requested Visits Authorized [id number] Closed Specialty Services Required 07/23/2024 07/23/2025 1 1 Encounter Details Date Type Department Care Team (Late st Contact Info) Description 07/23/2024 Orders Only [facility] MEDICINE 230 [place], [place] [phone] Lurdes Lo MD [address] [place] [address] [phone] Asthma-COPD overlap syndrome (CMS/HCC) (Primary Dx); Tobacco [...] documented as of this encounter Care Teams Deodorizer Operator Relationship Specialty Start Date End Date Lurdes Lo MD [address] [place] [address] PCP - General Family Medicine 08/09/22 Ahmet Lombardo, StellaD [address] [place] [address] Pharmacist Internal Medicine 09/03/22 Deepti Boo Predatory Animal TrapperBrew House Supervisor 06/13/23 Home [facility] 03/05/24 documented as of this encounter
--- OUTSIDE RECORDS SUMMARY | 2025-03-30 08:32 | XMS_ITS | Encounter Summary ---
Author Organization [employer] Address 75 [facility] 7t [place] [address] Care Team Providers Care Machine Marker Name Role Phone Maria Elena Davis GALLERY OR MUSEUM ATTENDANT Primary Care Provider [phone] Lurdes Lo MD Primary Care Provider [phone] Ahmet Lombardo PharmD Unavailable [phone] Encounter Details Date Type Department Care Team [...] on filedocumented in this encounter Care Teams Machine Marker Relationship Specialty Start Date End Date Maria Elena Davis [facility] [address] [place] [address] PCP - General Family Medicine 12/31/21 08/08/22 Lurdes Lo MD [address] [place] [address] PCP - General Family Medicine 08/09/22 Ahmet Lombardo, PharmD [address] [place] [address] [phone] Pharmacist Internal Medicine 09/03/22 Deepti Boo Director EpidemiologyRegistered Radiation Therapist 06/13/23 Home Care [facility] 03/05/24 documented as of this encounter
--- OUTSIDE RECORDS SUMMARY | 2025-03-30 08:32 | XMS_ITS | Encounter Summary ---
Author Organization [employer] Address 75 [facility] 7t [place] [address] Care Team Providers Care Sewing Department Supervisor Name Role Phone Lurdes Lo MD Primary Care Provider [phone] Ahmet Lombardo PharmD Unavailable [phone] Reason for Visit * Reason Onset Date Comments Appointment 01/05/2023 Encounter Details Date Type Department Care Team ([facility] st Contact Info) Description 01/05/2023 Telephone C ADULT DENTAL [address] [place] [address] Jayashree Kellogg DDS [address] [place] [address] Appointment Social History Tobacco Use Types Packs/Day [...] documented as of this encounter Care Teams Sewing Department Supervisor Relationship Specialty Start Date End Date Lurdes Lo MD 230 [place] [address] PCP - General Family Medicine 08/09/22 Ahmet Lombardo, PharmD 230 [place] [address] Pharmacist Internal Medicine 09/03/22 Deepti Boo Senior Core Java DeveloperDirector Cardiovascular 06/13/23 [facility] 03/05/24 documented as of this encounter
--- OUTSIDE RECORDS SUMMARY | 2025-03-30 08:32 | XMS_ITS | Encounter Summary ---
Author Organization [employer] Address 75 [facility] 7t [place] [address] Care Team Providers Care Power Lineworker Name Role Phone Lurdes Lo MD Primary Care Provider [phone] Ahmet Lombardo PharmD Unavailable [phone] Reason for Visit * Reason Comments Med Refill Encounter Details Date Type Department Care Team ([facility] Contact Info) Description 02/21/2023 Refill [facility] 230 [place], [place] [phone] [facility] 230 [place], [place] [phone] Social History Tobacco Use Types Packs/Day Years [...] documented as of this encounter Care Teams Power Lineworker Relationship Specialty Start Date End Date Lurdes Lo MD [address] [place] [address] PCP - General Family Medicine 08/09/22 Ahmet Lombardo, PharmD [address] [place] [address] Pharmacist Internal Medicine 09/03/22 Deepti Boo Asset Management LeadEndodontist 06/13/23 [facility] 03/05/24 documented as of this encounter
--- OUTSIDE RECORDS SUMMARY | 2025-03-30 08:32 | XMS_ITS | Clinical Summary ---
Author Organization [employer] [facility] ity Address [address] [place] [address] Care Team Providers Care Activity Manager Name Role Phone Unavailable Primary Care [...]
--- OUTSIDE RECORDS SUMMARY | 2025-03-30 08:32 | XMS_ITS | Encounter Summary ---
Author Organization [employer] Address 75 [facility] 7t [place] [address] Care Team Providers Care Electoral Officer Name Role Phone Lurdes Lo MD Primary Care Provider [phone] Ahmet Lombardo PharmD Unavailable [phone] Encounter Details Date Type Department Care Team (Late st Contact Info) Description 08/29/2024 Orders Only [facility] MEDICINE [address] [place], [place] [phone] Lurdes Lo MD 230 [place], [place] [phone] Rheumatoid factor positive with cyclic citrullinated peptide [...] documented as of this encounter Care Teams Electoral Officer Relationship Specialty Start Date End Date Lurdes Lo MD 230 [place] [address] PCP - General Family Medicine 08/09/22 Ahmet Lombardo, PharmD 230 [place] [address] Pharmacist Internal Medicine 09/03/22 Deepti Boo Financial Services InternshipLoftsman/Woman 06/13/23 Home Care [facility] 03/05/24 documented as of this encounter
--- OUTSIDE RECORDS SUMMARY | 2025-03-30 08:32 | XMS_ITS | Encounter Summary ---
Author Organization [employer] Address 75 [facility] 7t [place] [address] Care Team Providers Care Scrap Picker Name Role Phone Lurdes Lo MD Primary Care Provider [phone] Ahmet Lombardo PharmD Unavailable [phone] Reason for Visit * Reason Onset Date Comments Appointment 03/08/2023 Encounter Details Date Type Department Care Team ([facility] st Contact Info) Description 03/08/2023 Telephone [facility] ADULT DENTAL [address] [place] [address] Jayashree Kellogg DDS [address] [place], [place] [phone] Appointment Social History Tobacco Use Types Packs/Day [...] documented as of this encounter Care Teams Scrap Picker Relationship Specialty Start Date End Date Lurdes Lo MD [address] [place] [address] PCP - General Family Medicine 08/09/22 Ahmet Lombardo PharmD [address] [place] [address] Pharmacist Internal Medicine 09/03/22 Deepti Boo Railroad BrakemanPublic Health Worker 06/13/23 Home Care [facility] 03/05/24 documented as of this encounter
--- OUTSIDE RECORDS SUMMARY | 2025-03-30 08:32 | XMS_ITS | Encounter Summary ---
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 Surinder Martinez MD [address] [place] [address] Phone: tel: fax: Referral ID Status Reason Start Date Expiration Date Visits Requested Visits Authorized [id number] Canceled Specialty Services Required 08/21/2024 08/21/2025 1 1 Encounter Details Date Type Department Care Team (Late st Contact Info) Description 08/21/2024 Orders Only [facility] [address] [place] [phone] Surinder Martinez MD [address] [place] [address] [phone] Polyarthralgia (Primary Dx); Rheumatoid factor positive with [...] documented as of this encounter Care Teams Gate Keeper Relationship Specialty Start Date End Date Lurdes Lo MD [address] [place], [place] [phone] PCP - General Family Medicine 08/09/22 Ahmet Lombardo PharmD [address] [place] [address] Pharmacist Internal Medicine 09/03/22 Deepti Boo Brazer Production LinePiano Teacher 06/13/23 Home Care [facility] 03/05/24 documented as of this encounter
--- OUTSIDE RECORDS SUMMARY | 2025-03-30 08:32 | XMS_ITS | Encounter Summary ---
Author Organization [employer] Address 75 [facility] 7t [place] [address] Care Team Providers Care Customer Solutions Teammate Name Role Phone Lurdes Lo MD Primary Care Provider [phone] Ahmet Lombardo PharmD Unavailable [phone] Encounter Details Date Type Department Care Team ([facility] st Contact Info) Description 11/01/2022 Abstract [facility] ADULT DENTAL [address] [place] [address] Jayashree Kellogg DDS [address] [place] [address] Social History Tobacco Use Types Packs/Day Years [...] on filedocumented in this encounter Care Teams Customer Solutions Teammate Relationship Specialty Start Date End Date Lurdes Lo MD [address] [place], [place] [phone] PCP - General Family Medicine 08/09/22 Ahmet Lombardo, StellaD 230 [place], [place] [phone] Pharmacist Internal Medicine 09/03/22 Deepti Boo Amusement Park EntertainerBook Coverer 06/13/23 Home Care [facility] 03/05/24 documented as of this encounter
--- OUTSIDE RECORDS SUMMARY | 2025-03-30 08:32 | XMS_ITS | Encounter Summary ---
Author Organization [employer] Address 75 [facility] 7[place] [address] Care Team Providers Care Crawler Crane Operator Name Role Phone Lurdes Lo MD Primary Care Provider [phone] Ahmet Lombardo PharmD Unavailable [phone] Reason for Referral * Consultation (Routine) - Closed Specialty Diagnoses / Procedures Referred By Contac t Referred To Contact Rheumatology Diagnoses Rheumatoid factor positive with cyclic citrullinated peptide (CCP) antibody negative Polyarthralgia Positive CAROLIN (antinuclear antibody) Lurdes Lo MD 230 [place] [address] Phone: tel: fax: [facility] [address] Phone: tel: fax: Referral ID Status Reason Start Date Expiration Date V isits Requested Visits Authorized [id number] Closed Specialty Services Required 06/07/2024 06/07/2025 12 12 Encounter Details Date Type Department Care Team (Late st Contact Info) Description 09/19/2024 Orders Only [facility] MEDICINE 230 [place], [place] [phone] Lurdes Lo MD [address] [place], [place] [phone] Rheumatoid factor positive with cyclic citrullinated peptide [...] documented as of this encounter Care Teams Crawler Crane Operator Relationship Specialty Start Date End Date Lurdes Lo MD [address] [place] [address] PCP - General Family Medicine 08/09/22 Ahmet Lombardo, PharmD [address] [place] [address] Pharmacist Internal Medicine 09/03/22 Deepti Boo Student Liaison OfficerCushion Worker 06/13/23 Home Care [facility] 03/05/24 documented as of this encounter
--- OUTSIDE RECORDS SUMMARY | 2025-03-30 08:32 | XMS_ITS | Encounter Summary ---
Author Organization [employer] Address [address] [facility] [address] [place] [address] Care Team Providers Care City Magistrate Name Role Phone Lurdes Lo MD Primary Care Provider [phone] Ahmet Lombardo PharmD Unavailable [phone] Reason for Referral * Consultation (Routine) - Closed Specialty Diagnoses / Procedures Referred By Contac t Referred To Contact Rheumatology Diagnoses Polyarthralgia Elevated antinuclear antibody (CAROLIN) level Rheumatoid factor positive with cyclic citrullinated peptide (CCP) antibody negative Lurdes Lo MD [address] [place] [address] Phone: tel: fax: [facility] [address] Phone: tel: fax: Referral ID Status Reason Start Date Expiration Date V isits Requested Visits Authorized [id number] Closed Specialty Services Required 06/07/2024 06/07/2025 12 12 Encounter Details Date Type Department Care Team (Late st Contact Info) Description 06/07/2024 Orders Only [facility] MEDICINE [address], [place] [phone] Lurdes Lo MD [address], [place] [phone] Polyarthralgia (Primary Dx); Elevated antinuclear antibody (CAROLIN) [...] PM EST Narrative 06/12/2024 5:01 PM EST [address] [address] [address] Scan Report Signed with Addenda Patient: Leda Gudino MR# : [id number] : 1965 Acct:[id number] Age/Sex: 59 / F ADM Date: 06/12/24 Loc: [facility] 476-[address]: Sameer Diamond MD Ordering Physician: Augustin Urbina MD Date of Service: 06/12/24 Procedure(s): CT chest wo IV con Accession Number(s): [id number] cc: Augustin Urbina MD; Lurdes Lo MD Report Number: [id number]: Total DLP = 149.00 mGy-cm ADDENDUM ADDENDUM [...] iterative reconstruction technique DLP: 149 mGy/cm. FINDINGS: CONCRETE CURER: Hyperinflated lungs. LUNGS: There is mild centrilobular [...] by: Cirilo Quezada MD 06/12/2024 04:58 PM [facility] Dictated By: Cirilo Quezada MD Signed By: <Electronically signed by Cirilo Quezada MD in OV> 06/12/24 1658 DD/ 1606 TD/TT: 06/12/24 1620 Flight Control Specialist: [facility] Procedure Note Donotuseinterpreter, Image - 10/03/[address] [address] [address] Scan Report Signed with Addenda Patient: Leda GudinoMR# : [id number] : 1965Acct:[id number] Age/Sex: 59 / FADM Date: 06/12/24 Loc: [facility] 476-[address]: Sameer Diamond MD Ordering Physician: Augustin Urbina MD Date of Service: 06/12/24 Procedure(s): CT chest wo IV con Accession Number(s): [id number] cc: Augustin Urbina MD; Lurdes Lo MD Report Number: [id number]: Total DLP = 149.00 mGy-cm ADDENDUM ADDENDUM [...] iterative reconstruction technique DLP: 149 mGy/cm. FINDINGS: CONCRETE CURER: Hyperinflated lungs. LUNGS: There is mild centrilobular [...] by: Cirilo Quezada MD 06/12/2024 04:58 PM [facility] Dictated By: Cirilo Quezada MD Signed By: <Electronically signed by Cirilo Quezada MD in OV> 06/12/24 1658 DD/ 1606 TD/TT: 06/12/24 1620 Flight Control Specialist: ESTRELLA [facility] External Provider IMG CT PROCEDURES Edited [...] documented as of this encounter Care Teams City Magistrate Relationship Specialty Start Date End Date Lurdes Lo MD [address] [place] [address] PCP - General Family Medicine 08/09/22 Ahmet Lombardo, StellaD [address] [place] [address] Pharmacist Internal Medicine 09/03/22 Deepti Boo Drawer UpfitterMaterial Expediter 06/13/23 Home Care [facility] 03/05/24 documented as of this encounter
--- OUTSIDE RECORDS SUMMARY | 2025-03-30 08:32 | XMS_ITS | Clinical Summary ---
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 - Pt missed appointment, rescheduled appointment for 04/02/2025. Emphasized the importance of keeping appointment. - Prescribed predniSONE (Deltasone) 20 MG tablet 09/25/24 Assessment & Plan (09/27/2024 11:50 PM EDT): - Referred to armature winder repair helper. - Pt missed appointment a few weeks [...] on prednisone for COPD) - refer to armature winder repair helper in [place] since she has a difficulty going to [place] - consider pain management if she does not have Dx rheumatological disorder Assessment & Plan (09/27/2024 11:49 PM EDT): - history of CAROLIN 1:160 in 2018 - seen by armature winder repair helper. Normal ESR and CRP. Attributed to fibromyalgia - Prescribed predniSONE (Deltasone) 20 MG tablet 09/25/24 - will check lab again Assessment & Plan (07/03/2024 8:53 AM EST): - history of CAROLIN 1:160 in 2018 - seen by armature winder repair helper. Normal ESR and CRP. Attributed to fibromyalgia - will check lab again Assessment & Plan (06/02/2024 5:38 PM EST): - history of CAROLIN 1:160 in 2018 - seen by armature winder repair helper. Normal ESR and CRP. Attributed to fibromyalgia [...] (02/19/2024 6:49 PM EDT): - seen by [facility] in October 2023, Dx tendinitis - [...] (03/22/2025 12:24 PM EST): - seen by [facility] Orthopedist in Dec 2022 - She gave an informed consent to surgical release; she decided to continue to treat conservatively - continue conservative management for now - Patient would like to see orthopedist again Assessment & Plan (06/02/2024 5:25 PM EST): - seen by [facility] Orthopedist in Dec 2022 - She gave an informed consent to surgical release; she decided to continue to treat conservatively - continue conservative management for now Assessment & Plan (02/19/2024 6:50 PM EDT): - seen by [facility] Orthopedist in Dec 2022 - She gave an informed consent to surgical release; she decided to continue to treat conservatively - continue conservative management for now Assessment & Plan (04/22/2023 5:31 PM EST): - seen by [facility] Orthopedist in Dec 2022 - She gave an informed consent to surgical release; she has not scheduled a surgery date yet. - continue conservative management for now; encouraged to schedule a follow up appt with ortho Assessment & Plan (11/26/2022 7:38 AM EDT): - refer to orthopedist Asthma with COPD ([facility]) 11/25/2022 Assessment & Plan (03/22/2025 12:19 PM EST): - followed by [facility] pulmonology and lung cancer screening program, last [...] covered by her insurance. Patient was prescribed nusnkidvbl-fehwuvcj-pzepbpjwnx (Breztri) on 12/07/24, which also requires PA - previously prescribed: fluticasone furonate / vilanterol (Breo); umeclidinium (Incruse); - continue albuterol HFA and neb prn - continue working on smoking cessation - Prescribed prednisone and antibiotic today Assessment & Plan (12/28/2024 12:14 PM EDT): - followed by [facility] pulmonology and lung cancer screening program, last [...] covered by her insurance. Patient was prescribed iemhrqxqlv-veylvxbz-tebsytvouv (Breztri) on 12/07/24, which also requires PA - previously prescribed: fluticasone furonate / vilanterol (Breo); umeclidinium (Incruse); - continue albuterol HFA and neb prn - continue working on smoking cessation - Prescribed prednisone and antibiotic today Assessment & Plan (10/01/2024 5:46 PM EDT): - followed by [facility] pulmonology and lung cancer screening program, last [...] (07/03/2024 8:53 AM EST): - followed by [facility] pulmonology and lung cancer screening program, last [...] (06/02/2024 5:24 PM EST): - followed by [facility] pulmonology and lung cancer screening program, last [...] PM EDT): - followed by Dr. Olivera, [facility] pulmonology, last seen in Apr 2023 - [...] PM EDT): - followed by Dr. Olivera, [facility] pulmonology, last seen in Dec 2022 - [...] PM EST): - followed by Dr. Olivera, [facility] pulmonology, last seen in Dec 2022 - [...] AM EDT): - followed by Dr. Olivera, [facility] pulmonology, last seen in October 2022 - [...] (03/22/2025 12:13 PM EST): - followed by [facility] Endocrinology, last seen in Dec 2022 - [...] (12/28/2024 11:38 AM EDT): - followed by [facility] Endocrinology, last seen in Dec 2022 - [...] (10/01/2024 5:43 PM EDT): - followed by [facility] Endocrinology, last seen in Dec 2022 - [...] for 09/26/24 Advised to follow up with [facility] Endo. Assessment & Plan (07/03/2024 8:53 AM EST): - followed by [facility] Endocrinology, last seen in Dec 2022 - [...] nutritional supplement Advised to follow up with [facility] Endo. Assessment & Plan (06/02/2024 5:35 PM EST): - followed by [facility] Endocrinology, last seen in Dec 2022 - [...] nutritional supplement Advised to follow up with [facility] Endo. Assessment & Plan (02/19/2024 6:47 PM EDT): - followed by [facility] Endocrinology, Dr. Martini, encouraged to schedule appt. - previously on bisphosphonate, but pt discontinued due to side effects and was seen by Dr. Martini to discuss about alternative medications - work on smoking cessation - continue weight-bearing exercise - continue nutritional supplement Assessment & Plan (09/07/2023 9:54 PM EDT): - followed by [facility] Endocrinology, Dr. Martini - previously on bisphosphonate, but pt discontinued due to side effects - work on smoking cessation - continue weight-bearing exercise - continue nutritional supplement Assessment & Plan (04/22/2023 5:39 PM EST): - followed by [facility] Endocrinology, Dr. Martini - previously on bisphosphonate, but pt discontinued due to side effects - work on smoking cessation - continue weight-bearing exercise - continue nutritional supplement Assessment & Plan (11/26/2022 7:34 AM EDT): - followed by [facility] Endocrinology, Dr. Martini - continue bisphosphonate - [...] Description 03/22/2025 1:00 PM EST Office Visit [facility] [address] [place] [phone] Janice Yap ANP Acute head injury, initial encounter (Primary Dx); Bilateral arm pain; Fall on stairs, initial encounter; Dizziness; Nausea 03/22/2025 Orders Only [facility] External Provider, [facility] 03/22/2025 Travel 03/22/[address] [facility] [address] [place] [phone] Lurdes Lo MD Nurse Triage 03/21/2025 11:30 AM EST Office Visit [address] [address] Lurdes Lo MD Osteoporosis without current pathological [...] of left hand 03/21/2025 Travel 03/20/[address] [address] Lurdes Lo MD chart prep 03/13/[address] [facility] [address] [place], [place] [phone] Lurdes Lo MD 03/07/2025 Refill [facility] [address] [place], [place] [phone] Lurdes Lo MD 03/06/[address] [address] Lurdes Lo MD 2025 12:30 PM EDT Procedure Visit [address] [address] Makayla Knott MD Spasm of left trapezius muscle (Primary Dx) 2025 Travel 01/28/[address] [address] Lurdes Lo MD Chart Prep 01/11/2025 8:30 AM EDT Office Visit [facility] ADULT DENT[facility] [address] [place] [address] Jayashree Kellogg, DDS Edentulism (Primary Dx) 01/11/[address] [address] Lurdes Lo MD Patient Education 01/11/[address] [address] GillespieMaria Elena [facility] Telephone Call from Last 3 Months Immunizations Immunization Administration [...] Lung Cancer Screening 04/29/2024 04/29/2023 COVID-19 Vaccine (3 - season) 2025 10/02/2020, 09/04/2020 Influenza Vaccine (#1) [...] MAXILLARY Routine 01/11/2025 8:30 AM EDT Edentulism PANORAMIC RADIOGRAPHIC IMAGE Routine [...] PM EST Narrative 03/22/2025 4:31 PM EST [address] [address] [address] Scan Report Signed Patient: Leda Gudino MR# : [id number] : 1965 Acct:[id number] Age/Sex: 60 / F ADM Date: 03/22/25 Loc: HO.ED Attending Dr: Ordering Physician: Linda Nunez NP Date of Service: 03/22/25 Procedure(s): CT cervical spine wo IV con Accession Number(s): [id number] cc: Lurdes Lo MD; Linda Nunez NP Report Number: [id number]: Total DLP = 214.23 mGy-cm Reason for [...] by: Sean Hughes MD 03/22/2025 04:28 PM [facility] Dictated By: Sean Hughes MD Signed By: <Electronically signed by Sean Hughes MD in OV> 03/22/25 1628 DD/ 1540 TD/TT: 03/22/25 1620 Police District Switchboard Operator: ABNER Procedure Note Donotuseinterpreter, Image - 03/22/[address] [address] [address] Scan Report Signed Patient: Leda GudinoMR# : [id number] : 1965Acct:[id number] Age/Sex: 60 / FADM Date: 03/22/25 Loc: HO.ED Attending Dr: Ordering Physician: Linda Nunez NP Date of Service: 03/22/25 Procedure(s): CT cervical spine wo IV con Accession Number(s): [id number] cc: Lurdes Lo MD; Linda Nunez NP Report Number: [id number]: Total DLP = 214.23 mGy-cm Reason for [...] 03/22/25 1628 DD/ 1540 TD/TT: 03/22/25 1620 Police District Switchboard Operator: ABNER [facility] External Provider IMG CT PROCEDURES Final Result * CT Head w/o Contrast (03/22/2025 3:40 PM EST) Anatomical Region Laterality Modality Head, Neck Computed Tomogra phy 03/22/2025 3:40 PM EST Narrative 03/22/2025 4:29 PM EST [address] [address] [address] Scan Report Signed Patient: Leda Gudino MR# : [id number] : 1965 Acct:[id number] Age/Sex: 60 / F ADM Date: 03/22/25 Loc: HO.ED Attending Dr: Ordering Physician: Linda Nunez NP Date of Service: 03/22/25 Procedure(s): CT head/brain wo IV con Accession Number(s): [id number] cc: Lurdes Lo MD; Linda Nunez NP Report Number: [id number]: Total DLP = 648.13 mGy-cm Reason for [...] Harman Resendiz MD 03/22/2025 04:27 PM EST Dictated By: Harman Resendiz MD Signed By: <Electronically signed by Harman Resendiz MD in OV> 03/22/25 1627 DD/ 1540 TD/TT: 03/22/25 1619 Police District Switchboard Operator: Procedure Note Donotuseinterpreter, Image - 03/22/[address] [address] [address] Scan Report Signed Patient: Leda GudinoMR# : [id number] : 1965Acct:[id number] Age/Sex: 60 / FADM Date: 03/22/25 Loc: HO.ED Attending Dr: Ordering Physician: Linda Nunez NP Date of Service: 03/22/25 Procedure(s): CT head/brain wo IV con Accession Number(s): [id number] cc: Lurdes Lo MD; Linda Nunez NP Report Number: [id number]: Total DLP = 648.13 mGy-cm Reason for [...] Harman Resendiz MD 03/22/2025 04:27 PM EST Dictated By: Harman Resendiz MD Signed By: <Electronically signed by Harman Resendiz MD in OV> 03/22/25 1627 DD/ 1540 TD/TT: 03/22/25 1619 Police District Switchboard Operator: [facility] External Provider IMG CT PROCEDURES Final Result * (ABNORMAL) Lipid Panel with Reflex to Direct LDL (07/03/2024 10:56 AM EST) Triglycerides 88 <150 mg/dL [facility] Comment:Desirable Triglyceri de: less than 150 mg/dLBorderline High Triglyceride 150-199 mg/dLHigh Triglyceride: 200-499 mg/dLVery High Triglyceride: greater than or equal to 5OO mg/dL Cholesterol 241(H) <200 mg/dL [facility] Comment:Desirable Cholestero l: less than 200 mg/dLBorderline High Cholesterol: 200-239 mg/dLHigh Cholesterol: greater than 239 mg/dL LDL Cholesterol Calculated 138(H) <100 mg/dL [facility] Comment:Desirable LDL: less than 100 mg/dLNear Optimal/Above Optimal LDL: 110- 129 mg/dLBorderline High LDL: 130-159 mg/dLHigh LDL: 160-189 mg/dLVery High LDL: greater than or equal to 190 mg/dL HDL Cholesterol 86 >40 mg/dL [facility] Comment:Desirable HDL: great er than 40 mg/dL Note: This HDL assay may give artificially low results in patients with liver disease. Blood 07/03/2024 10:5 6 AM EST 07/03/2024 11:30 AM EST Lurdes Lo MD LAB BLOOD ORDERABLES Final Resul t [facility] [address] [place] [phone] * Hepatitis C Antibody with Reflex to HCV, RNA, Quantitative, Real-Time PCR (07/03/2024 10:56 AM EST) Hepatitis C Antibody Nonreactive Nonreactive [facility] Comment:Antibodies to HCV no t detected; does not exclude early acuteHCV infection. Blood Venous blood specimen / Unknown 07/03/2024 10:56 AM EST 07/03/2024 11:30 AM EST us Lurdes Lo MD LAB BLOOD ORDERABLES Final Resul t Performing Organization Address [facility] Co de Phone Number [facility] [address] [place] [phone] * HIV-1/2 Antigen and Antibodies, Fourth Generation, with Reflexes (07/03/2024 10:56 AM EST) HIV AB/AG Nonreactive Nonreactive [facility] Comment:HIV-1 p24 Ag and/or HIV-1/HIV-2 Ab not detected.A test result that is nonreactive does not exclude thepossibility of exposure to or infection with HIV-1 and/orHIV-2. Nonreactive results in this assay for individualswith prior exposure to HIV-1 and/or HIV-2 may be due toantigen and antibody levels that are below the limit ofdetection of this assay.[facility] HIV Ag/Ab Combo assay result andsupplemental assay results should be interpreted inconjunction with the patient's clinical presentation,history and other laboratory results. If the results areinconsistent with clinical evidence, additional testing issuggested to confirm the result. Blood Venous blood specimen / Unknown 07/03/2024 10:56 AM EST 07/03/2024 11:30 AM EST us Lurdes Lo MD LAB BLOOD ORDERABLES Final Resul t Performing Organization Address [facility]/ZIP Co de Phone Number [facility] [address] [place] [phone] * BI Mammogram Screening Tomosynthesis Bilateral (09/27/2023 12:26 PM EDT) Anatomical Region Laterality Modality Breast Bilateral Mammography 09/27/2023 12:2 6 PM EDT Narrative 10/28/2023 7:07 AM EDT [facility] [address] [place] [address] Mammography Report Signed Patient: Leda Gudino MR# : [id number] : 1965 Acct:[id number] Age/Sex: 58 / F ADM Date: 09/27/23 Loc: VÍCTOR Attending Dr: Lurdes Lo MD Ordering Physician: Lurdes Lo MD Results: 1Negative Date of Service: 09/27/23 Follow Up: 1 Year From Orig inal Mammogram Procedure(s): MM tomosynthesis screening BI Accession Number(s): [id number] cc: Lurdes Lo MD EXAMINATION: MM SCREENING [...] in OV> 10/28/23 0704 DD/ 1226 TD/TT: Police District Switchboard Operator: Procedure Note Donotuseinterpreter, Image - 10/28/2023 [facility] [address] [place] [address] Mammography Report Signed Patient: Leda GudinoMR# : [id number] : 1965Acct:[id number] Age/Sex: 58 / FADM Date: 09/27/23 Loc: HO.MAMMO Attending Dr: Lurdes Lo MD Ordering Physician: Lurdes Lo MDResults: 1Negative Date of Service: 09/27/23Follow Up: 1 Year From [facility] Mammogram Procedure(s): MM tomosynthesis screening BI Accession Number(s): [id number] cc: Lurdes Lo MD EXAMINATION: MM SCREENING [...] in OV> 10/28/23 0704 DD/ 1226 TD/TT: Police District Switchboard Operator: Lurdes Lo MD IMG BI PROCEDURES Final Result * CT Lung Screening Low dose (04/29/2023 10:15 AM EST) Anatomical Region Laterality Modality Lung Computed Tomogra phy 04/29/2023 10:1 5 AM EST Narrative 05/13/2023 2:52 PM EST [address] [address] [address] Scan Report Signed Patient: Leda Gudino MR# : [id number] : 1965 Acct:[id number] Age/Sex: 58 / F ADM Date: 04/29/23 Loc: HO.CT Attending Dr: Maxine Matos PA-C Ordering Physician: Maxine Matos PA-C Date of Service: 04/29/23 Procedure(s): CT lung screening Accession Number(s): [id number] cc: Maxine Matos PA-C; Lurdes Lo MD [...] in OV> 05/13/23 1449 DD/ 1015 TD/TT: Police District Switchboard Operator: Procedure Note Donotuseinterpreter, Image - 05/13/[address] [address] [address] Scan Report Signed Patient: Leda GudinoMR# : [id number] : 1965Acct:[id number] Age/Sex: 58 / FADM Date: 04/29/23 Loc: HO.CT Attending Dr: Maxine Matos PA-C Ordering Physician: Maxine Mtaos PA-C Date of Service: 04/29/23 Procedure(s): CT lung screening Accession Number(s): [id number] cc: Maxine Matos PA-C; Lurdes Lo MD [...] in OV> 05/13/23 1449 DD/ 1015 TD/TT: Police District Switchboard Operator: [facility] External Provider IMG CT PROCEDURES Final Result * Colonoscopy (07/15/2020) Colonoscopy Normal Normal 07/15/2020 [facility] Unassigned Pcp HEALTH MAINTENANCE Edited Result - Final from Last 3 Months or Most Recently Relevant to Health Maintenance Insurance * Guarantor: Leda Gudino Account Type Relation to Patient Date of Phone Billing Address Personal/Family Self [address] Care Teams Display Carver Relationship Specialty Start Date End Date Lurdes Lo MD [address] [place] [address] PCP - General Family Medicine 08/09/22 Ahmet Lombardo, StellaD [address] [place] [address] Pharmacist Internal Medicine 09/03/22 Deepti Boo Regional ForesterOpen Hearth Stockyard Supervisor 06/13/23 Home Care [facility] 03/05/24
[2025-03-30 10:57] LABS: Alanine Aminotransferase 21 U/L (0-31); Albumin Level 4.6 g/dL (3.5-5.0); Alkaline Phosphatase 83 U/L (39-117); Anion Gap 12 (12-20); Aspartate Amino Transferase 27 U/L (5-31); Blood Urea Nitrogen 10 mg/dL (9-16); Calcium 9.5 mg/dL (8.4-10.2); Carbon Dioxide 31 mmol/L (22-29); Chloride 105 mmol/L (96-108); Estimated Glomerular Filt Rate > 60; Potassium 4.2 mmol/L (3.3-5.1); Sodium 144 mmol/L (135-145); Total Protein 7.1 g/dL (6.5-8.0)
== END 2025-03-30 08:28 | disposition home or self-care (01) ==
LOC: HO.LAB 08:27
PROVIDERS: Family Medicine; Visit Provider Student in an Organized Health Care Education/Training Program
DX: M81.0 Age-related osteoporosis without current pathological fracture (principal); R74.01 Elevation of levels of liver transaminase levels; R76.89 Other specified abnormal immunological findings in serum; E55.9 Vitamin D deficiency, unspecified; M25.50 Pain in unspecified joint
CPT/HCPCS: 36415; 80053; 82306; 84443; 86200

== ENCOUNTER 2025-04-02 13:02 | Outpatient (AMB) | payer MEDICAID, SELFPAY ==
[2025-04-02 13:25] VITALS: BP 100/68; PULSE 67; O2SAT 97; BMI 20.7
--- NOTE | 2025-04-02 13:25 | A.OFFVIS_ITS ---
Vital Signs 04/02/25 13:25 Height 5 ft 3 in Weight 116 lb 13.52 oz BMI 20.7 BP 100/68 Blood Pressure Location Lt brachial Position Sitting Pulse 67 Pulse Source Pulse Oximeter Pulse Oximetry (%) 97 Oxygen Delivery Method Room Air Intake Visit Reasons: + CAROLIN/RF/ New Patient Intake Note: Patient is a new patient, presents for abnormal bloodwork follow up and polyarthralgia. She was referred by Lurdes Lo MD from [facility]. Patient has had symptoms for 12 years with fibromyalgia, she has had arthritis for a month, pain all over her body every day. She is taking Gabapentin and Ibuprofen 800. Bi Solutions Architect Required: Yes Bi Solutions Architect Language: Winding Operator Services: Bi Solutions Architect Present Bi Solutions Architect Name: [id number] Rehan Accompanied by: Daughter Allergies acetaminophen (From Tylenol) Allergy (Unknown, Verified 04/02/25 13:33) Nausea and Vomiting tramadol (TRAMADOL) Allergy (Unknown, Verified 04/02/25 13:33) NAUSEA & VOMITING Medication List - Last Reconciled 04/02/25 by Jaylin Daniels MD albuterol sulfate 2.5 mg inhalation Q4H PRN albuterol sulfate 90 mcg/actuation (Ventolin HFA) 2 puffs inhalation QID PRN 30 days amitriptyline 25 mg PO BEDTIME calcium citrate 500 mg (2 x 250 mg calcium) PO BID chlorhexidine gluconate 0.12% 15 mL BID cholecalciferol (vitamin D3) (Vitamin D3) 50 mcg PO DAILY diclofenac sodium 1% 2 grams topical QD-BID PRN dicyclomine 20 mg PO QD-QID PRN docusate sodium 200 mg PO DAILY PRN duloxetine 20 mg PO DAILY fluticasone propion-salmeterol 250-50 mcg/dose (Wixela Inhub) 1 inh inhalation Q12H 30 days fluticasone propionate 50 mcg/actuation 1 spray intranasal DAILY gabapentin 400 mg PO TID ibuprofen 600 mg PO Q6H PRN lidocaine 5% 3 patches topical DAILY PRN montelukast 10 mg PO DAILY omeprazole 40 mg PO DAILY@0630 ondansetron 4 mg PO Q6H PRN sennosides (senna) 17.2 mg PO BID PRN tiotropium bromide 2.5 mcg/actuation (Spiriva Respimat) 2 puffs inhalation DAILY 30 days varenicline tartrate (Chantix Starting Month Box) PO PER PKG DIR HPI Comments Details: This is a 60-year-old female with a PMH of COPD currently smoking, had rheumatic fever 47 years ago and had IV penicillin every 28 days till 23 years of age referred by her PCP for joint pain for past 12 years. She was diagnosed with fibromyalgia 12 years ago. She has joint pain has gotten progressively getting worse She has pain in hands, knuckles, wrists and left 4th trigger finger, she states she has sharp pain in arms , pain in shoulders, pain in hips and pain in both knees. She has numbness tingling in both hands and feet. She feels stiff in these joints all day long. She fell down last week from the stairs and sustained no fractures but had a head concussion. she denies photosensitivity, raynauds, dry eyes, dry mouth, skin rash, oral ulcers, blood clot, miscarriage pleuritic chest pain. On blood work, in May 2024 patient had CBC CMP done, no significant abnormality a positive CAROLIN 1:320 titer nuclear dense fine speckled, RF of 20.1, ESR CRP negative NERVE CONDUCTION STUDIES OF BILATERAL ARMS done this year were within normal limits Vital signs reviewed Physical Examination CONSTITUITIONAL Patient alert and cooperative. Well appearing and in no apparent painful distress HEENT Conjunctiva and sclera clear. No lymphadenopathy. CHEST/RESPIRATORY SYSTEM Normal respiratory effort and able to speak in complete sentences. Some wheezing noted CARDIAC SYSTEM Regular rate and rhythm. faint murmur heard. Radial pulses intact bilaterally MSK Hands * Right Hand: Able to make a fist. No swelling or tenderness to palpation of the MCPs, PIPs or DIPs. No deformities noted. * Left Hand: Able to make a fist. No swelling or tenderness to palpation of the MCPs, PIPs or DIPs. No deformities noted. Wrists * Right Wrist: Full ROM to flexion and extension. * Left Wrist: Full ROM to flexion and extension. Elbows * Right Elbow: Full ROM. * Left Elbow: Full ROM. Shoulders * Right shoulder:Limited ROM. No swelling noted. * Left shoulder: Limited range of motion. No swelling noted. Hips * Right hip: Limited range of motion. * Left hip: Limited range of motion. Hip bursa: No tenderness to palpation bilaterally Knees * Right knee: Full ROM. No swelling noted. * Left knee: Full ROM. No swelling noted. Ankles * Right ankle: Good ankle dorsiflexion and plantar flexion. No swelling. No TTP of the ankle joint * Left ankle: Good ankle dorsiflexion and plantar flexion. No swelling. No TTP of the ankle joint Tender points? * extreme tenderness to palpation of the bilateral trapezius, supraspinatus, anterior costochondral junctions, bilateral suboccipital muscle insertions, FM points positive SKIN No rashes PFSH Medical History (Updated 04/02/25 @ 14:06 by Jaylin Daniels MD) Tobacco dependence Asthma-COPD overlap syndrome Emphysema lung Premature menopause History of Helicobacter pylori infection Nicotine dependence, cigarettes, uncomplicated Allergies Asthma Constipation Moderate malnutrition Pulmonary nodules Colitis Acid reflux Vitamin D deficiency Osteoporosis (~2017) Migraines Lupus Osteoarthritis Fibromyalgia Surgical History History of appendectomy (~1982) History of tonsillectomy History of removal of ovarian cyst History of hysterectomy History of resection of small bowel (~2020) History of colonoscopy History of esophagogastroduodenoscopy (EGD) History of elbow surgery (~2010) Family History Father Fibromyalgia Osteoporosis Mother Stroke Social History (Updated 03/26/25 @ 14:39 by Josie Thapa CMA) Household Members: Family Housing: Apartment Do you presently have visiting nurse or other home services: Yes Alcohol intake: never Comment: Patient sleeping Patient Tobacco Use Status: Current everyday Tobacco user Tobacco use type: Cigarette Cigarette Packs Per Day: 1 Cigarettes Per Day: 20.0 Years Smoked: 23 e-Cigarette/Vaping Use: Never Used Second Hand Smoke Exposure: Yes service: No Current occupational status: disabled 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 Physical Exam Vital Signs: BMI result Body Mass Index 20.7 Assessment & Plan Assessment & Plan (1) Polyarthralgia: Code(s): M25.50 - Pain in unspecified joint Category: Medical (2) Positive antinuclear antibody: Code(s): R76.89 - Other specified abnormal immunological findings in serum Category: Medical (3) Fibromyalgia: Code(s): M79.7 - Fibromyalgia Category: Medical (4) Tobacco dependence: Code(s): F17.200 - Nicotine dependence, unspecified, uncomplicated Category: Medical Plan Given this patient's history and physical exam, she exhibits fibromyalgia as her most likely cause for polyarthralgias and joint pain. On history and clinical exam, she does not exhibit features of inflammatory arthritis like RA, SLE, Sjogren's, psoriatic arthritis. There is a low suspicion of inflammatory arthritis, Nevertheless I will complete workup including bilateral hand x-rays, bilateral knee x-rays. I will also complete workup including CAROLIN subsets, CRP, C3-C4, urine protein creatinine ratio, pending CCP antibody. For the management of her fibromyalgia I will refer her to sleep Medicine to rule out sleep apnea. I will also refer her to pain management and have placed a massage therapy referral. I will see her back in 3 months, if there is anything concerning on blood work or x-rays we will reach out to her sooner. Orders: Orders C Reactive Protein Today R76.0 - Raised antibody titer Complement C3 Today R76.0 - Raised antibody titer Anti DNA DS Antibody Today R76.0 - Raised antibody titer Scleroderma 12 Panel Today R76.0 - Raised antibody titer UA ClnCatch+Micro w/rflx Cult Today R76.0 - Raised antibody titer XR Hand Sina 2V Today M25.50 - Pain in unspecified joint, R76.89 - Other specified abnormal immunological findings in serum XR Knee Sina 1or 2V Today R76.89 - Other specified abnormal immunological findings in serum Complement C4 Today R76.0 - Raised antibody titer DNA Double Stranded-Crithidia Today R76.0 - Raised antibody titer Sm Sm/CONSUMER STUDIES PROFESSOR Antibodies Today R76.0 - Raised antibody titer Sjogren's Antibodies Today R76.0 - Raised antibody titer Scleroderma 70 Antibody Today R76.0 - Raised antibody titer Anti-Centromere B Antibodies Today R76.0 - Raised antibody titer Protein Creatinine Ratio, Ur Today M25.50 - Pain in unspecified joint, M79.7 - Fibromyalgia, R76.0 - Raised antibody titer, R76.89 - Other specified abnormal immunological findings in serum Referrals Sleep Medicine Referral M25.50 - Pain in unspecified joint Pain Management Referral M79.7 - Fibromyalgia Massage Therapy Referral F17.200 - Nicotine dependence, unspecified, uncomplicated, M79.7 - Fibromyalgia Coding Level of Care Code New Pt Level 4 (16622) Diagnoses Polyarthralgia M25.50 Positive antinuclear antibody R76.89 Fibromyalgia M79.7 Tobacco dependence F17.200
--- OUTSIDE RECORDS SUMMARY | 2025-04-02 16:48 | XMS_ITS | Encounter Summary ---
Author Organization [employer] Address [address] [facility] 7t [place] [address] Care Team Providers Care Loan Collector Name Role Phone Lurdes Lo MD Primary Care Provider [phone] Ahmet Lombardo PharmD Unavailable [phone] Reason for Referral * Consultation (Urgent) - Closed Specialty Diagnoses / Procedures Referred By Contac t Referred To Contact Diagnoses Asthma-COPD overlap syndrome (CMS/HCC) (HCC) Tobacco dependence Lurdes Lo MD [address] [place] [address] Phone: tel: fax: [facility] [address] [place] [address] Phone: tel: fax: Referral ID Status Reason Start Date Expiration Date V isits Requested Visits Authorized [id number] Closed Specialty Services Required 07/23/2024 07/23/2025 1 1 Encounter Details Date Type Department Care Team (Late st Contact Info) Description 07/23/2024 Orders Only [facility] MED[facility] [address] [place], [place] [phone] Lurdes Lo MD [address] [place] [address] [phone] Asthma-COPD overlap syndrome (CMS/HCC) (Primary Dx); Tobacco [...] documented as of this encounter Care Teams Loan Collector Relationship Specialty Start Date End Date Lurdes Lo MD [address] [place] [address] PCP - General Family Medicine 08/09/22 Ahmet Lombardo, StellaD [address] [place] [address] Pharmacist Internal Medicine 09/03/22 Deepti Boo Telephone InstallerFuneral Director 06/13/23 Home Care [facility] 03/05/24 documented as of this encounter
--- OUTSIDE RECORDS SUMMARY | 2025-04-02 16:48 | XMS_ITS | Encounter Summary ---
Author Organization [email or web address] Address [address] [facility] 7t [place] [address] Care Team Providers Care Head Counselor Name Role Phone Lurdes Lo MD Primary Care Provider [phone] Ahmet Lombardo PharmD Unavailable [phone] Encounter Details Date Type Department Care Team (Late st Contact Info) Description 08/29/2024 Orders Only [facility] MED[facility] [address] [place], [place] [phone] Lurdes Lo MD [address] [place], [place] [phone] Rheumatoid factor positive with cyclic citrullinated peptide [...] as of this encounter Care Teams Head Counselor Relationship Specialty Start Date End Date Lurdes Lo MD [address] [place] [address] PCP - General Family Medicine 08/09/22 Ahmet Lombardo, PharmD [address] [place] [address] Pharmacist Internal Medicine 09/03/22 Deepti Boo Jboss DeveloperClaim Manager 06/13/23 Home Care [facility] 03/05/24 documented as of this encounter
--- OUTSIDE RECORDS SUMMARY | 2025-04-02 16:48 | XMS_ITS | Encounter Summary ---
Author Organization [employer] Address [address] [facility] 7t [place] [address] Care Team Providers Care Channeling Machine Operator Name Role Phone Lurdes Lo MD Primary Care Provider [phone] Ahmet Lombardo PharmD Unavailable [phone] Encounter Details Date Type Department Care Team ([facility] st Contact Info) Description 11/01/2022 Abstract [facility] ADULT [facility] [address] [place] [address] Jayashree Kellogg DDS [address] [place] [address] Social History Tobacco Use Types Packs/Day Years [...] on filedocumented in this encounter Care Teams Channeling Machine Operator Relationship Specialty Start Date End Date Lurdes Lo MD [address] [place], [place] [phone] PCP - General Family Medicine 08/09/22 Ahmet Lombardo, StellaD [address] [place], [place] [phone] Pharmacist Internal Medicine 09/03/22 Deepti Boo Channeling Machine OperatorLiving Supervisor 06/13/23 [facility] 03/05/24 documented as of this encounter
--- OUTSIDE RECORDS SUMMARY | 2025-04-02 16:48 | XMS_ITS | Encounter Summary ---
Author Organization [employer] Address [address] [facility] [address] [place] [address] Care Team Providers Care Stencil Cutter Machine Name Role Phone Lurdes Lo MD Primary Care Provider [phone] Ahmet Lombardo PharmD Unavailable [phone] Reason for Referral * Consultation (Routine) - Closed Specialty Diagnoses / Procedures Referred By Contac t Referred To Contact Rheumatology Diagnoses Polyarthralgia Elevated antinuclear antibody (CAROLIN) level Rheumatoid factor positive with cyclic citrullinated peptide (CCP) antibody negative Lurdes Lo MD [address] [place] [address] Phone: tel: fax: [facility] [address] Phone: tel: fax: Referral ID Status Reason Start Date Expiration Date V isits Requested Visits Authorized [id number] Closed Specialty Services Required 06/07/2024 06/07/2025 12 12 Encounter Details Date Type Department Care Team (Late st Contact Info) Description 06/07/2024 Orders Only [facility] MEDICINE [address] [place], [place] [phone] Lurdes Lo MD [address] [place], [place] [phone] Polyarthralgia (Primary Dx); Elevated antinuclear antibody (CAROLIN) [...] PM EST Narrative 06/12/2024 5:01 PM EST [address] [address] [address] Scan Report Signed with Addenda Patient: Leda Gudino MR# : [id number] : 1965 Acct:[id number] Age/Sex: 59 / F ADM Date: 06/12/24 Loc: [facility] 476-[address]: Sameer Diamond MD Ordering Physician: Augustin Urbina MD Date of Service: 06/12/24 Procedure(s): CT chest wo IV con Accession Number(s): [id number] cc: Augustin Urbina MD; Lurdes Lo MD Report Number: [id number]: Total DLP = 149.00 mGy-cm ADDENDUM ADDENDUM [...] iterative reconstruction technique DLP: 149 mGy/cm. FINDINGS: ARCADE GAME TECHNICIAN: Hyperinflated lungs. LUNGS: There is mild centrilobular [...] by: Cirilo Quezada MD 06/12/2024 04:58 PM [facility] [place]ict[place] By: Cirilo Quezada MD Signed By: <Electronically signed by Cirilo Quezada MD in OV> 06/12/24 1658 DD/ 1606 TD/TT: 06/12/24 1620 Vinyl Dipper: [facility] [place] Note Donotuseinterpreter, Image - 10/03/[address] [address] [address] Scan Report Signed with Addenda Patient: Leda GudinoMR# : [id number] : 1965Acct:[id number] Age/Sex: 59 / FADM Date: 06/12/24 Loc: [facility] 476-[address]: Sameer Diamond MD Ordering Physician: Augustin Urbina MD Date of Service: 06/12/24 Procedure(s): CT chest wo IV con Accession Number(s): [id number] cc: Augustin Urbina MD; Lurdes Lo MD Report Number: [id number]: Total DLP = 149.00 mGy-cm ADDENDUM ADDENDUM [...] iterative reconstruction technique DLP: 149 mGy/cm. FINDINGS: ARCADE GAME TECHNICIAN: Hyperinflated lungs. LUNGS: There is mild centrilobular [...] by: Cirilo Quezada MD 06/12/2024 04:58 PM [facility] [place]ict[place] By: Cirilo Quezada MD Signed By: <Electronically signed by Cirilo Quezada MD in OV> 06/12/24 1658 DD/ 1606 TD/TT: 06/12/24 1620 Vinyl Dipper: ESTRELLA [facility] External Provider IMG CT PROCEDURES Edited [...] documented as of this encounter Care Teams Stencil Cutter Machine Relationship Specialty Start Date End Date Lurdes Lo MD [address] [place] [address] PCP - General Family Medicine 08/09/22 Ahmet Lombardo, StellaD [address] [place] [address] Pharmacist Internal Medicine 09/03/22 Deepti Boo Principal Database DeveloperWatch Repair Technician 06/13/23 Home Care [facility] 03/05/24 documented as of this encounter
--- OUTSIDE RECORDS SUMMARY | 2025-04-02 16:48 | XMS_ITS | Encounter Summary ---
Author Organization [employer] Address [address] [facility] 7t [place] [address] Care Team Providers Care Snowmobile Mechanic Name Role Phone Lurdes Lo MD Primary Care Provider [phone] Ahmet Lombardo PharmD Unavailable [phone] Reason for Referral * Consultation (Routine) - Canceled Specialty Diagnoses / Procedures Referred By Controlly bynum Referred To Contact Rheumatology Diagnoses Polyarthralgia Rheumatoid factor positive with cyclic citrullinated peptide (CCP) antibody negative Surinder Martinez MD [address] [place] [address] Phone: tel: fax: Referral ID Status Reason Start Date Expiration Date Visits Requested Visits Authorized [id number] Canceled Specialty Services Required 08/21/2024 08/21/2025 1 1 Encounter Details Date Type Department Care Team (Late st Contact Info) Description 08/21/2024 Orders Only [facility] [address] [place] [address] [phone] Surinder Martinez MD [address] [place] [address] [phone] Polyarthralgia (Primary Dx); Rheumatoid factor positive with [...] documented as of this encounter Care Teams Snowmobile Mechanic Relationship Specialty Start Date End Date Lurdes Lo MD [address] [place], [place] [phone] PCP - General Family Medicine 08/09/22 Ahmet Lombardo PharmD [address] [place] [address] Pharmacist Internal Medicine 09/03/22 Deepti Boo Outsole RounderFarm Or Ranch Animal Caretaker 06/13/23 Home Care [facility] 03/05/24 documented as of this encounter
--- OUTSIDE RECORDS SUMMARY | 2025-04-02 16:48 | XMS_ITS | Encounter Summary ---
Author Organization [employer] Address [address] [facility] 7t [place] [address] Care Team Providers Care Tape Control Skin Or Spar Mill Operator Name Role Phone Lurdes Lo MD Primary Care Provider [phone] Ahmet Lombardo PharmD Unavailable [phone] Reason for Visit * Reason Onset Date Comments Appointment 01/05/2023 Encounter Details Date Type Department Care Team ([facility] st Contact Info) Description 01/05/2023 Telephone C ADULT DENTAL [address] [place] [address] Jayashree Kellogg DDS [address] [place] [address] Appointment Social History Tobacco Use Types Packs/Day [...] documented as of this encounter Care Teams Tape Control Skin Or Spar Mill Operator Relationship Specialty Start Date End Date Lurdes Lo MD [address] [place] [address] PCP - General Family Medicine 08/09/22 Ahmet Lombardo, PharmD [address] [place] [address] Pharmacist Internal Medicine 09/03/22 Deepti Boo Ferris Wheel AttendantAmbulatory Care 06/13/23 Home [facility] 03/05/24 documented as of this encounter
--- OUTSIDE RECORDS SUMMARY | 2025-04-02 16:48 | XMS_ITS | Encounter Summary ---
Author Organization [employer] Address [address] [facility] 7t [place] [address] Care Team Providers Care Video Editing Intern Name Role Phone Maria Elena Davis SUPERINTENDENT AMMUNITION STORAGE Primary Care Provider [phone] Lurdes Lo MD Primary Care Provider [phone] Ahmet Lombardo PharmD Unavailable [phone] Encounter Details Date Type Department Care Team [...] on filedocumented in this encounter Care Teams Video Editing Intern Relationship Specialty Start Date End Date Maria Elena Davis [facility] [address] [place] [address] PCP - General Family Medicine 12/31/21 08/08/22 Lurdes Lo MD [address] [place] [address] PCP - General Family Medicine 08/09/22 Ahmet Lombardo, PharmD [address] [place] [address] [phone] Pharmacist Internal Medicine 09/03/22 Deepti Boo Jewel Oliving Machine OperatorFlight Operations Specialist 06/13/23 Home Care [facility] 03/05/24 documented as of this encounter
--- OUTSIDE RECORDS SUMMARY | 2025-04-02 16:48 | XMS_ITS | Encounter Summary ---
Author Organization [employer] Address [address] [facility] 7t [place] [address] Care Team Providers Care Operator Cavity Pump Name Role Phone Lurdes Lo MD Primary Care Provider [phone] Ahmet Lombardo PharmD Unavailable [phone] Reason for Referral * Neurology (Routine) - Closed Specialty Diagnoses / Procedures Referred By Controlly t Referred To Contact Diagnoses Polyarthralgia Procedures Nerve conduction test Makayla Knott MD [address] [place] [address] Phone: tel: fax: [facility] [address] [place] [address] Phone: tel: fax: Referral ID Status Reason Start Date Expiration Date Visits Re quested Visits Authorized [id number] Closed 10/16/2024 10/16/2025 1 1 Encounter Details Date Type Department Care Team (Late st Contact Info) Description 10/16/2024 Orders Only [facility] MEDICINE [address] [place], [place] [phone] Makayla Knott MD [address] [place], [place] [phone] Polyarthralgia (Primary Dx) Social History Tobacco Use [...] documented as of this encounter Care Teams Operator Cavity Pump Relationship Specialty Start Date End Date Lurdes Lo MD [address] [place], [place] [phone] PCP - General Family Medicine 08/09/22 Ahmet Lombardo, StellaD [address] [place] [address] Pharmacist Internal Medicine 09/03/22 Deepti Boo Aircraft Rigging And Controls MechanicGed Tutor 06/13/23 Home Care [facility] 03/05/24 documented as of this encounter
--- OUTSIDE RECORDS SUMMARY | 2025-04-02 16:48 | XMS_ITS | Encounter Summary ---
Author Organization [employer] Address [address] [facility] 7t [place] [address] Care Team Providers Care Soap Tender Name Role Phone Lurdes Lo MD Primary Care Provider [phone] Ahmet Lombardo PharmD Unavailable [phone] Reason for Visit * Reason Onset Date Comments Appointment 03/08/2023 Encounter Details Date Type Department Care Team ([facility] st Contact Info) Description 03/08/[address] [facility] AD[facility] [address] [place] [address] Jayashree Kellogg DDS [address] [place], [place] [phone] Appointment Social History Tobacco Use Types Packs/Day [...] documented as of this encounter Care Teams Soap Tender Relationship Specialty Start Date End Date Lurdes Lo MD [address] [place] [address] PCP - General Family Medicine 08/09/22 Ahmet Lombardo PharmD [address] [place] [address] Pharmacist Internal Medicine 09/03/22 Deepti Boo Harbor EngineerFlat Spring Assembler 06/13/23 Home Care [facility] 03/05/24 documented as of this encounter
--- OUTSIDE RECORDS SUMMARY | 2025-04-02 16:48 | XMS_ITS | Clinical Summary ---
Author Organization [employer] Address [address] [facility] [address] [place] [address] Care Team Providers Care Mercerizing Range Feeder Name Role Phone Lurdes Lo MD Primary Care Provider [phone] Ahmet Lombardo PharmD Unavailable [phone] Allergies Active Allergy Reactions Criticality Noted Date [...] NEEDED FOR PAIN 200 g 3 Active gabapentin (Neurontin) 600 MG tablet Take [...] MORE THAN 2 WEEKS 30 tablet 3 025 2024 Discontinued(R lesaer (will not trigger notification to Pharmacy)) gabapentin (Neurontin) 400 MG capsule TAKE 1 CAPSULE BY MOUTH THREE TIMES DAILY 90 capsule 11 2024 Discontinued predniSONE (Deltasone) 20 MG tablet Take 1 tablet (20 mg) by mouth Once per day for 5 days. 5 tablet 5 2:01 PM EST 2024 amoxicillin-clavu lanate (Augmentin) 875-125 MG tablet Take 1 tablet by mouth 2 times daily for 7 days. 14 tablet 5 2:01 PM EST 2024 Hospital, Clinic, or Other Facility Administered Medication [...] 12:16 PM EST): - Upcoming appointment with [facility] Assessment & Plan (09/27/2024 11:50 PM EDT): - Prescribed predniSONE (Deltasone) 20 MG tablet 09/25/24 Rheumatoid factor positive w ith cyclic citrullinated peptide (CCP) antibody negative 07/03/2024 Assessment & Plan (03/22/2025 12:16 PM EST): - Referred to [facility]. - Pt missed appointment, rescheduled appointment for 04/02/2025. Emphasized the importance of keeping appointment. - Prescribed predniSONE (Deltasone) 20 MG tablet 09/25/24 Assessment & Plan (09/27/2024 11:50 PM EDT): - Referred to [facility]. - Pt missed appointment a few weeks [...] on prednisone for COPD) - refer to [facility] in [place] since she has a difficulty going to [place] - consider pain management if she does not have Dx rheumatological disorder Assessment & Plan (09/27/2024 11:49 PM EDT): - history of CAROLIN 1:160 in 2018 - seen by [facility]. Normal ESR and CRP. Attributed to fibromyalgia - Prescribed predniSONE (Deltasone) 20 MG tablet 09/25/24 - will check lab again Assessment & Plan (07/03/2024 8:53 AM EST): - history of CAROLIN 1:160 in 2018 - seen by [facility]. Normal ESR and CRP. Attributed to fibromyalgia - will check lab again Assessment & Plan (06/02/2024 5:38 PM EST): - history of CAROLIN 1:160 in 2018 - seen by [facility]. Normal ESR and CRP. Attributed to fibromyalgia [...] (02/19/2024 6:49 PM EDT): - seen by [facility] in October 2023, Dx tendinitis - [...] (03/22/2025 12:24 PM EST): - seen by [facility] Orthopedist in Dec 2022 - She gave an informed consent to surgical release; she decided to continue to treat conservatively - continue conservative management for now - Patient would like to see orthopedist again Assessment & Plan (06/02/2024 5:25 PM EST): - seen by [facility]ist in Dec 2022 - She gave an informed consent to surgical release; she decided to continue to treat conservatively - continue conservative management for now Assessment & Plan (02/19/2024 6:50 PM EDT): - seen by [facility] Orthopedist in Dec 2022 - She gave an informed consent to surgical release; she decided to continue to treat conservatively - continue conservative management for now Assessment & Plan (04/22/2023 5:31 PM EST): - seen by [facility] Orthopedist in Dec 2022 - She gave an informed consent to surgical release; she has not scheduled a surgery date yet. - continue conservative management for now; encouraged to schedule a follow up appt with ortho Assessment & Plan (11/26/2022 7:38 AM EDT): - refer to orthopedist Asthma with COPD ([facility]) 11/25/2022 Assessment & Plan (03/22/2025 12:19 PM EST): - followed by [facility] pulmonology and lung cancer screening program, last [...] covered by her insurance. Patient was prescribed upjngyqukf-txqeomey-shqfuoegla (Breztri) on 12/07/24, which also requires PA - previously prescribed: fluticasone furonate / vilanterol (Breo); umeclidinium (Incruse); - continue albuterol HFA and neb prn - continue working on smoking cessation - Prescribed prednisone and antibiotic today Assessment & Plan (12/28/2024 12:14 PM EDT): - followed by [facility] pulmonology and lung cancer screening program, last [...] covered by her insurance. Patient was prescribed owineuckcx-utaatwrg-luqojjnfql (Breztri) on 12/07/24, which also requires PA - previously prescribed: fluticasone furonate / vilanterol (Breo); umeclidinium (Incruse); - continue albuterol HFA and neb prn - continue working on smoking cessation - Prescribed prednisone and antibiotic today Assessment & Plan (10/01/2024 5:46 PM EDT): - followed by [facility] pulmonology and lung cancer screening program, last [...] (07/03/2024 8:53 AM EST): - followed by [facility] pulmonology and lung cancer screening program, last [...] (06/02/2024 5:24 PM EST): - followed by [facility] pulmonology and lung cancer screening program, last [...] PM EDT): - followed by Dr. Olivera, [facility] pulmonology, last seen in Apr 2023 - [...] PM EDT): - followed by Dr. Olivera, [facility] pulmonology, last seen in Dec 2022 - [...] PM EST): - followed by Dr. Olivera, [facility] pulmonology, last seen in Dec 2022 - [...] AM EDT): - followed by Dr. Olivera, [facility] pulmonology, last seen in October 2022 - [...] (03/22/2025 12:13 PM EST): - followed by [facility] Endocrin[facility], last seen in Dec 2022 - [...] (12/28/2024 11:38 AM EDT): - followed by [facility] Endocrinology, last seen in Dec 2022 - [...] (10/01/2024 5:43 PM EDT): - followed by [facility] Endocrin[facility], last seen in Dec 2022 - [...] for 09/26/24 Advised to follow up with [facility]. Assessment & Plan (07/03/2024 8:53 AM EST): - followed by [facility], last seen in Dec 2022 - [...] nutritional supplement Advised to follow up with [facility] Assessment & Plan (06/02/2024 5:35 PM EST): - followed by [facility] End[facility]in[facility], last seen in Dec 2022 - [...] nutritional supplement Advised to follow up with [facility]. Assessment & Plan (02/19/2024 6:47 PM EDT): - followed by [facility] Endocrinology, Dr. Martini, encouraged to schedule appt. - previously on bisphosphonate, but pt discontinued due to side effects and was seen by Dr. Martini to discuss about alternative medications - work on smoking cessation - continue weight-bearing exercise - continue nutritional supplement Assessment & Plan (09/07/2023 9:54 PM EDT): - followed by [facility] Endocrinology, Dr. Martini - previously on bisphosphonate, but pt discontinued due to side effects - work on smoking cessation - continue weight-bearing exercise - continue nutritional supplement Assessment & Plan (04/22/2023 5:39 PM EST): - followed by [facility] Endocrinology, Dr. Martini - previously on bisphosphonate, but pt discontinued due to side effects - work on smoking cessation - continue weight-bearing exercise - continue nutritional supplement Assessment & Plan (11/26/2022 7:34 AM EDT): - followed by [facility] Endocrinology, Dr. Martini - continue bisphosphonate - [...] Encounters Date Type Department Care Team Description 03/30/2025 Orders Only GENERIC EXTERNAL DATA DEPARTMENT Provider, Generic External Data 03/22/2025 1:00 PM EST Office Visit [facility] [address] [place] [phone] Janice Yap ANP Acute head injury, initial encounter (Primary Dx); Bilateral arm pain; Fall on stairs, initial encounter; Dizziness; Nausea 03/22/2025 Orders Only [facility] External Provider, [facility] 03/22/2025 Travel 03/22/[address] [facility] [address] [place] [phone] Lurdes Lo MD Nurse Triage 03/21/2025 11:30 AM EST Office Visit [address] [address] Lurdes Lo MD Osteoporosis without current pathological fracture, unspecified osteoporosis type (Primary Dx); Current severe episode of major depressive disorder without psychotic features, unspecified whether recurrent (CMS/HCC) (HCC); Rheumatoid factor positive with cyclic citrullinated peptide (CCP) antibody negative; Positive CAROLIN (antinuclear antibody); Fibromyalgia; Pulmonary nodules; Asthma with COPD (CMS/HCC) ([facility]); Tobacco dependence; Smoking greater than 20 pack years; Trigger ring finger of left hand 03/21/2025 Travel 03/20/[address] [address] Lurdes Lo MD chart prep 03/13/[address] [facility] [address] [place], [place] [phone] Lurdes Lo MD 03/07/[address] [facility] [address] [place], [place] [phone] Lurdes Lo MD 03/06/[address] [address] Lurdes Lo MD 2025 12:30 PM EDT Procedure Visit [address] [address] Makayla Knott MD Spasm of left trapezius muscle (Primary Dx) 2025 Travel 01/28/[address] [address] Lurdes Lo MD Chart Prep 01/11/2025 8:30 AM EDT Office Visit [facility] [address] [place] [phone] Jayashree Kellogg, DDS Edentulism (Primary Dx) 01/11/[address] [address] Lurdes Lo MD Patient Education 01/11/[address] [facility] Telephone Call from Last 3 Months Immunizations [...] Cancer Screening 04/29/2024 04/29/2023 COVID-19 Vaccine (3 season) 2025 10/02/2020, 09/04/2020 Influenza Vaccine (#1) [...] smokeless, etc) Tobacco Use Ahmet Villareal, PharmD Procedures Procedure Name Priority Date/Time Associated Diagnosis Comments TSH W/REFLEX TO FT4 Routine 03/30/2025 8 :58 AM EST VITAMIN D,25-OH,TOTAL,IA Routine 03/30/2025 8:58 AM EST COMPREHENSIVE METABOLIC PANEL Routine 03/30/2025 8:[address] CERVICAL SPINE WO CONTRAST Routine 03/22/2025 [...] Recently Relevant to Health Maintenance Results * Vitamin D, 25-Hydroxy, Total, Immunoassay (03/30/2025 8:58 AM EST) Vitamin D 25-OH Total 30.9 >30 ng/mL [facility] Comment: Health Based Reference Values*< 20 ng/mL Ynhsbyhex64-09 ng/mL Insufficient> 30 ng/mL Sufficient*Maxwell BATRES. N Engl J Med. 2007;357:266-280There is no well-established upper level of normal vitamin Dlevels. Some laboratories use 50 ng/mL as an upper limit ofnormal. However, toxicity is patient-dependent and may occurat any level. Careful correlation with the patient'spresentation is necessary and, if there is concern forvitamin D toxicity, treatment should be consideredirrespective of the serum level.Care must be taken in interpreting Vitamin D [...] confirmed with another method such as LC-MS/MS. 03/30/2025 8:58 AM EST 03/30/2025 8:58 AM EST us Generic External Data Provider LAB BLOOD ORDERAB LES Final Result Performing Organization Address [facility]/ZIP Co de Phone Number [facility] [address] [place] [phone] * TSH with Reflex to Free T4 (03/30/2025 8:58 AM EST) TSH reflex Free T4 1.42 0.32 - 4.0 uIU/mL [facility] 03/30/2025 8:58 AM EST 03/30/2025 8:58 AM EST us Generic External Data Provider LAB BLOOD ORDERAB LES Final Result Performing Organization Address [facility]/ZIP Co de Phone Number [facility] [address] [place] [phone] * (ABNORMAL) Comprehensive Metabolic Panel (03/30/2025 8:58 AM EST) Sodium 144 135 - 145 mmol/L [facility] Potassium 4.2 3.3 - 5.1 mmol/L [facility] Chloride 105 96 - 108 mmol/L [facility] Carbon Dioxide 31(H) 22 - 29 mmol/L [facility] Anion Gap 12 12 - 20 [facility] Urea Nitrogen (BUN) 10 9 - 16 mg/dL [facility] Creatinine, Serum 0.67 0.5 - 1.4 mg/dL [facility] Estimated Glomerular Filt Rate >60 [facility] Comment:Chronic Kidney Disea se: Estimated GFR < 60 mL/min/1.21p1Lsgsdn Kidney Disease: Estimated GFR < 15 mL/min/1.73m2 Glucose 87 60 - 115 mg/dL [facility] Calcium 9.5 8.4 - 10.2 mg/dL [facility] Bilirubin, Total 0.4 0.0 - 1.0 mg/dL [facility] Aspartate Amino Transferase 27 5 - 31 U/L [facility] Alanine Aminotransferase 21 0 - 31 U/L [facility] Total Protein 7.1 6.5 - 8.0 g/dL [facility] Albumin Level 4.6 3.5 - 5.0 g/dL [facility] Alkaline Phosphatase 83 39 - 117 U/L [facility] Blood Venous blood specimen / Unknown 03/30/2025 8:58 AM EST 03/30/2025 8:58 AM EST us Lurdes Lo MD LAB BLOOD ORDERABLES Final Resul t [facility] [address] [place] [phone] * CT Cervical Spine w/o Contrast (03/22/2025 3:40 PM EST) Anatomical Region Laterality Modality Spine, C-spine Computed Tomogra phy 03/22/2025 3:40 PM EST Narrative 03/22/2025 4:31 PM EST [place] [address] CT Scan Report Signed Patient: Leda Gudino MR# : [id number] : 1965 Acct:[id number] Age/Sex: 60 / F ADM Date: 03/22/25 Loc: HO.ED Attending Dr: Ordering Physician: Linda Nunez NP Date of Service: 03/22/25 Procedure(s): CT cervical spine wo IV con Accession Number(s): [id number] cc: Lurdes oL MD; Linda Nunez NP Report Number: [id number]: Total DLP = 214.23 mGy-cm Reason for [...] 03/22/25 1628 DD/ 1540 TD/TT: 03/22/25 1620 [employer]: ABNER Procedure Note Donotuseinterpreter, Image - 03/22/[address] [address] [address] Scan Report Signed Patient: Leda GudinoMR# : [id number] : 1965Acct:[id number] Age/Sex: 60 / FADM Date: 03/22/25 Loc: HO.ED Attending Dr: Ordering Physician: Linda Nunez NP Date of Service: 03/22/25 Procedure(s): CT cervical spine wo IV con Accession Number(s): [id number] cc: Lurdes Lo MD; Linda Nunez NP Report Number: [id number]: Total DLP = 214.23 mGy-cm Reason for [...] by: Sean Hughes MD 03/22/2025 04:28 PM [facility] Dictated By: Sean Hughes MD Signed By: <Electronically signed by Sean Hughes MD in OV> 03/22/25 1628 DD/ 1540 TD/TT: 03/22/25 1620 [employer]: ABNER us [facility] External Provider IMG CT PROCEDURES Final Result * CT Head w/o Contrast (03/22/2025 3:40 PM EST) Anatomical Region Laterality Modality Head, Neck Computed Tomogra phy 03/22/2025 3:40 PM EST Narrative 03/22/2025 4:29 PM EST [address] [address] [address] Scan Report Signed Patient: Leda Gudino MR# : [id number] : 1965 Acct:[id number] Age/Sex: 60 / F ADM Date: 03/22/25 Loc: HO.ED Attending Dr: Ordering Physician: Linda Nunez NP Date of Service: 03/22/25 Procedure(s): CT head/brain wo IV con Accession Number(s): [id number] cc: Lurdes Lo MD; Linda Nunez NP Report Number: [id number]: Total DLP = 648.13 mGy-cm Reason for [...] by: Harman Resendiz MD 03/22/2025 04:27 PM [facility] Dictated By: Harman Resendiz MD Signed By: <Electronically signed by Harman Resendiz MD in OV> 03/22/25 1627 DD/ 1540 TD/TT: 03/22/25 1619 [employer]: Procedure Note Donotuseinterpreter, Image - 03/22/[address] [address] [address] Scan Report Signed Patient: Leda GudinoMR# : [id number] : 1965Acct:[id number] Age/Sex: 60 / FADM Date: 03/22/25 Loc: HO.ED Attending Dr: Ordering Physician: Linda Nunez NP Date of Service: 03/22/25 Procedure(s): CT head/brain wo IV con Accession Number(s): [id number] cc: Lurdes Lo MD; Linda Nunez NP Report Number: [id number]: Total DLP = 648.13 mGy-cm Reason for [...] No acute intracranial abnormality. Electronically signed by: Hraman Resendiz MD 03/22/2025 04:27 PM EST Dictated By: Harman Resendiz MD Signed By: <Electronically signed by Harman Resendiz MD in OV> 03/22/25 1627 DD/ 1540 TD/TT: 03/22/25 1619 [employer]: [facility] External Provider IMG CT PROCEDURES Final Result * (ABNORMAL) Lipid Panel with Reflex to Direct LDL (07/03/2024 10:56 AM EST) Triglycerides 88 <150 mg/dL [facility] Comment:Desirable Triglyceri de: less than 150 mg/dLBorderline High Triglyceride 150-199 mg/dLHigh Triglyceride: 200-499 mg/dLVery High Triglyceride: greater than or equal to 5OO mg/dL Cholesterol 241(H) <200 mg/dL [facility] Comment:Desirable Cholestero l: less than 200 mg/dLBorderline High Cholesterol: 200-239 mg/dLHigh Cholesterol: greater than 239 mg/dL LDL Cholesterol Calculated 138(H) <100 mg/dL [facility] Comment:Desirable LDL: less than 100 mg/dLNear Optimal/Above Optimal LDL: 110- 129 mg/dLBorderline High LDL: 130-159 mg/dLHigh LDL: 160-189 mg/dLVery High LDL: greater than or equal to 190 mg/dL HDL Cholesterol 86 >40 mg/dL [facility] Comment:Desirable HDL: great er than 40 mg/dL Note: This HDL assay may give artificially low results in patients with liver disease. Blood 07/03/2024 10:5 6 AM EST 07/03/2024 11:30 AM EST Lurdes Lo MD LAB BLOOD ORDERABLES Final Resul t [facility] [address] [place] [phone] * Hepatitis C Antibody with Reflex to HCV, RNA, Quantitative, Real-Time PCR (07/03/2024 10:56 AM EST) Hepatitis C Antibody Nonreactive Nonreactive [facility] Comment:Antibodies to HCV no t detected; does not exclude early acuteHCV infection. Blood Venous blood specimen / Unknown 07/03/2024 10:56 AM EST 07/03/2024 11:30 AM EST us Lurdes oL MD LAB BLOOD ORDERABLES Final Resul t Performing Organization Address [facility]/ZIP Co de Phone Number [facility] [address] [place] [phone] * HIV-1/2 Antigen and Antibodies, Fourth Generation, with Reflexes (07/03/2024 10:56 AM EST) HIV AB/AG Nonreactive Nonreactive [facility] Comment:HIV-1 p24 Ag and/or HIV-1/HIV-2 Ab not detected.A test result that is nonreactive does not exclude thepossibility of exposure to or infection with HIV-1 and/orHIV-2. Nonreactive results in this assay for individualswith prior exposure to HIV-1 and/or HIV-2 may be due toantigen and antibody levels that are below the limit ofdetection of this assay.[employer] HIV Ag/Ab Combo assay result andsupplemental assay results should be interpreted inconjunction with the patient's clinical presentation,history and other laboratory results. If the results areinconsistent with clinical evidence, additional testing issuggested to confirm the result. Blood Venous blood specimen / Unknown 07/03/2024 10:56 AM EST 07/03/2024 11:30 AM EST us Lurdes Lo MD LAB BLOOD ORDERABLES Final Resul t Performing Organization Address City/[facility]/ZIP Co de Phone Number [facility] [address] [place] [phone] * BI Mammogram Screening Tomosynthesis Bilateral (09/27/2023 12:26 PM EDT) Anatomical Region Laterality Modality Breast Bilateral Mammography 09/27/2023 12:2 6 PM EDT Narrative 10/28/2023 7:07 AM EDT [facility] [address] [place] [address] Mammography Report Signed Patient: Leda Gudino MR# : [id number] : 1965 Acct:[id number] Age/Sex: 58 / F ADM Date: 09/27/23 Loc: HO.MAMMO Attending Dr: Lurdes Lo MD Ordering Physician: Lurdes Lo MD Results: 1Negative Date of Service: 09/27/23 Follow Up: 1 Year From [facility] Mammogram Procedure(s): MM tomosynthesis screening BI Accession Number(s): [id number] cc: Lurdes Lo MD EXAMINATION: MM SCREENING [...] in OV> 10/28/23 0704 DD/ 1226 TD/TT: [employer]: Procedure Note Donotuseinterpreter, Image - 10/28/2023 [facility] [address] [place] [address] Mammography Report Signed Patient: Leda GudinoMR# : [id number] : 1965Acct:[id number] Age/Sex: 58 / FADM Date: 09/27/23 Loc: HO.MAMMO Attending Dr: Lurdes Lo MD Ordering Physician: Lurdes Lo MDResults: 1Negative Date of Service: 09/27/23Follow Up: 1 Year From Orig in[facility] Mammogram Procedure(s): MM tomosynthesis screening BI Accession Number(s): [id number] cc: Lurdes Lo MD EXAMINATION: MM SCREENING [...] in OV> 10/28/23 0704 DD/ 1226 TD/TT: [employer]: Lurdes Lo MD IMG BI PROCEDURES Final Result * CT Lung Screening Low dose (04/29/2023 10:15 AM EST) Anatomical Region Laterality Modality Lung Computed Tomogra phy 04/29/2023 10:1 5 AM EST Narrative 05/13/2023 2:52 PM EST [address] [address] [address] Scan Report Signed Patient: Leda Gudino MR# : [id number] : 1965 Acct:[id number] Age/Sex: 58 / F ADM Date: 04/29/23 Loc: .CT Attending Dr: Maxine Matos PA-C Ordering Physician: Maxine Matos PA-C Date of Service: 04/29/23 Procedure(s): CT lung screening Accession Number(s): [id number] cc: Maxine Matos PA-C; Lurdes Lo MD [...] in OV> 05/13/23 1449 DD/ 1015 TD/TT: [employer]: Procedure Note Donotuseinterpreter, Image - 05/13/[address] [place] [address] [address] Scan Report Signed Patient: Leda GudinoMR# : [id number] : 1965Acct:[id number] Age/Sex: 58 / FADM Date: 04/29/23 Loc: HO.CT Attending Dr: Maxine Matos PA-C Ordering Physician: Maxine Matos PA-C Date of Service: 04/29/23 Procedure(s): CT lung screening Accession Number(s): [id number] cc: Maxine Matos PA-C; Lurdes Lo MD [...] in OV> 05/13/23 1449 DD/ 1015 TD/TT: Jet [employer] Servicer: [facility] External Provider IMG CT PROCEDURES Final Result * Colonoscopy (07/15/2020) Colonoscopy Normal Normal 07/15/2020 [facility] Unassigned Pcp HEALTH MAINTENANCE Edited Result - Final from Last 3 Months or Most Recently Relevant to Health Maintenance Insurance [facility] MEDICAID STAND ADULT * Guarantor: Leda Gudino Account Type Relation to Patient Date of Phone Billing Address Personal/Family Self [address] Care Teams [employer] Range Feeder Relationship Specialty Start Date End Date Lurdes Lo MD [address] [place] [address] PCP - General Family Medicine 08/09/22 Ahmet Lombardo, StellaD [address] [place] [address] Pharmacist Internal Medicine 09/03/22 De[employer]i [employer] 06/13/23 Home Care [facility] 03/05/24
--- OUTSIDE RECORDS SUMMARY | 2025-04-02 16:48 | XMS_ITS | Encounter Summary ---
Author Organization [employer] Address [address] [facility] 7t [place] [address] Care Team Providers Care Child Nutrition Assistant Name Role Phone Lurdes Lo MD Primary Care Provider [phone] Ahmet Lombardo PharmD Unavailable Reason for Visit * Reason Comments Med Refill Encounter Details Date Type Department Care Team ([facility] st Contact Info) Description 12/01/[address] [facility] [address] [place], [place] [phone] Lurdes Lo MD [address] [place] [place], [place] [phone] Paresthesia of lower extremity Social History Tobacco [...] documented as of this encounter Care Teams Child Nutrition Assistant Relationship Specialty Start Date End Date Lurdes Lo MD [address] [place] [address] PCP - General Family Medicine 08/09/22 Ahmet Lombardo, PharmD [address] [place] [address] Pharmacist Internal Medicine 09/03/22 Deepti Boo Commercial Finance AnalystClinical Program Consultant 06/13/23 [facility] 03/05/24 documented as of this encounter
--- OUTSIDE RECORDS SUMMARY | 2025-04-02 16:48 | XMS_ITS | Encounter Summary ---
Author Organization [employer] Address [address] [facility] 7t [place] [address] Care Team Providers Care Printing Table Worker Name Role Phone Lurdes Lo MD Primary Care Provider [phone] Ahmet Lombardo PharmD Unavailable [phone] Reason for Visit * Reason Comments Med Refill Encounter Details Date Type Department Care Team ([facility] Contact Info) Description 02/21/2023 Refill [facility] [address] [place], [place] [phone] [facility] [address] [place], [place] [phone] Social History Tobacco Use Types Packs/Day Years [...] documented as of this encounter Care Teams Printing Table Worker Relationship Specialty Start Date End Date Lurdes Lo MD [address] [place] [address] PCP - General Family Medicine 08/09/22 Ahmet Lombardo, PharmD [address] [place] [address] Pharmacist Internal Medicine 09/03/22 Deepti Boo Truck Mechanic ApprenticePlumber And Tinner 06/13/23 [facility] 03/05/24 documented as of this encounter
--- OUTSIDE RECORDS SUMMARY | 2025-04-02 16:48 | XMS_ITS | Encounter Summary ---
Author Organization [employer] Address [address] [facility] [address] [place] [address] Care Team Providers Care Interstate Planner Name Role Phone Lurdes Lo MD Primary Care Provider [phone] Ahmet Lombardo PharmD Unavailable [phone] Reason for Referral * Consultation (Routine) - Closed Specialty Diagnoses / Procedures Referred By Contac t Referred To Contact Rheumatology Diagnoses Rheumatoid factor positive with cyclic citrullinated peptide (CCP) antibody negative Polyarthralgia Positive CAROLIN (antinuclear antibody) Lurdes Lo MD [address] [place] [address] Phone: tel: fax: [facility] [address] Phone: tel: fax: Referral ID Status Reason Start Date Expiration Date V isits Requested Visits Authorized [id number] Closed Specialty Services Required 06/07/2024 06/07/2025 12 12 Encounter Details Date Type Department Care Team (Late st Contact Info) Description 09/19/2024 Orders Only [facility] [address] [place], [place] [phone] Lurdes Lo MD [address] [place], [place] [phone] Rheumatoid factor positive with cyclic citrullinated peptide [...] documented as of this encounter Care Teams Interstate Planner Relationship Specialty Start Date End Date Lurdes Lo MD [address] [place] [address] PCP - General Family Medicine 08/09/22 Ahmet Lombardo, PharmD [address] [place] [address] Pharmacist Internal Medicine 09/03/22 Deepti Boo Sales Engineering ManagerNnp 06/13/23 [facility] 03/05/24 documented as of this encounter
--- OUTSIDE RECORDS SUMMARY | 2025-04-02 16:49 | XMS_ITS | Encounter Summary ---
Author Organization [employer] Address [address] [facility] 7t [place] [address] Care Team Providers Care Orthopedic Technician Name Role Phone Lurdes Lo MD Primary Care Provider [phone] Ahmet Lombardo PharmD Unavailable [phone] Encounter Details Date Type Department Care Team (Late st Contact Info) Description 03/30/2025 Orders Only GENERIC EXTERNAL DATA DEPARTMENT Provider, Generic External Data Social History Tobacco Use Types Packs/Day Years [...] Procedure Name Priority Date/Time Associated Diagnosis Comments VITAMIN D,25-OH,TOTAL,IA Routine 03/30/2025 8:58 AM EST TSH W/REFLEX TO FT4 Routine 03/30/2025 8 :58 AM EST documented in this encounter Results * TSH with Reflex to Free T4 (03/30/2025 8:58 AM EST) TSH reflex Free T4 1.42 0.32 - 4.0 uIU/mL [facility] 03/30/2025 8:58 AM EST 03/30/2025 8:58 AM EST us Generic External Data Provider LAB BLOOD ORDERAB LES Final Result [facility] [address] [place] [address] [phone] * Vitamin D, 25-Hydroxy, Total, Immunoassay (03/30/2025 8:58 AM EST) Vitamin D 25-OH Total 30.9 >30 ng/mL [facility] Comment: Health Based Reference Values*< 20 ng/mL [id number] ng/mL Insufficient> 30 ng/mL Sufficient*Holick MF. N Engl J Med. 2007;357:266-280There is no [...] Provider LAB BLOOD ORDERAB LES Final Result [facility] [address] [place] [phone] documented in this encounter Visit Diagnoses Not on filedocumented in this encounter Additional Health Concerns Assessment Noted Time PHQ-9 Depression Total Score: 18 025 11:45 AM EST documented as of this encounter Care Teams Orthopedic Technician Relationship Specialty Start Date End Date Lurdes Lo MD [address] [place] [address] PCP - General Family Medicine 08/09/22 Ahmet Lombardo, StellaD [address] [place] [address] Pharmacist Internal Medicine 09/03/22 Deepti Boo Yard AttendantSignaling Design Engineer 06/13/23 [facility] 03/05/24 documented as of this encounter
== END 2025-04-02 14:20 | disposition home or self-care (01) ==
LOC: HO.RHES 13:02
PROVIDERS: PCP Family Medicine; Visit Provider Student in an Organized Health Care Education/Training Program
DX: M25.50 Pain in unspecified joint (principal); R76.89 Other specified abnormal immunological findings in serum; M79.7 Fibromyalgia; F17.200 Nicotine dependence, unspecified, uncomplicated
CPT/HCPCS: 99204

== ENCOUNTER → 2025-04-02 13:02 | Outpatient (BNVA) | payer MEDICAID, SELFPAY | PROVIDERS: PCP Family Medicine; Visit Provider Student in an Organized Health Care Education/Training Program | DX: M79.7 Fibromyalgia (principal); R76.89 Other specified abnormal immunological findings in serum; F17.200 Nicotine dependence, unspecified, uncomplicated; R76.0 Raised antibody titer; M25.59 Pain in other specified joint; R20.0 Anesthesia of skin; R20.2 Paresthesia of skin | CPT/HCPCS: 99202 ==

== ENCOUNTER 2025-05-06 14:31 | Outpatient (AMB) | payer MEDICAID, SELFPAY ==
--- NOTE | 2025-05-06 14:33 | MHC.OFFVIS ---
Intake Visit Reasons: New prob-LT hand Trigger finger Intake Note: Leda is a 60 year old left hand dominant [place] speaking female who presents today for a New Problem Visit complaining of Left ring finger Locking & Catching. Patient was last seen 12/22/22 for left RING finger, to be booked for surgery but turned it down. At today's visit she states that for the past 9 months her left ring finger started locking and catching, no injury reported. She states that the left ring finger is catching on its own and she noted that if she makes a fist the finger locks. Patient states that the left hand does have a numbness, no tingling. She would like to discuss her injection options at today's visit. Hand Cutter Apprentice Required: Yes Hand Cutter Apprentice Services: Hand Cutter Apprentice Present Hand Cutter Apprentice Name: Rosalina [id number] Allergies acetaminophen (From Tylenol) Allergy (Unknown, Verified 05/06/25 15:20) Nausea and Vomiting tramadol (TRAMADOL) Allergy (Unknown, Verified 05/06/25 15:20) NAUSEA & VOMITING HPI HPI New prob-LT hand Trigger finger: Details: Leda is a 60 year old left hand dominant [place] speaking female who presents today for a New Problem Visit complaining of Left ring finger Locking & Catching. Patient was last seen 12/22/22 for left RING finger, to be booked for surgery but turned it down. At today's visit she states that for the past 9 months her left ring finger started locking and catching, no injury reported. She states that the left ring finger is catching on its own and she noted that if she makes a fist the finger locks. Patient states that the left hand does have a numbness, no tingling. She would like to discuss her injection options at today's visit. Patient states she is entirely uninterested in surgery, as this makes her very anxious. [facility] Medical History (Updated 05/06/25 @ 15:30 by RODDY Alexis) Tobacco dependence Asthma-COPD overlap syndrome Emphysema lung Premature menopause History of Helicobacter pylori infection Nicotine dependence, cigarettes, uncomplicated Allergies Asthma Constipation Moderate malnutrition Pulmonary nodules Colitis Acid reflux Vitamin D deficiency Osteoporosis (~2017) Migraines Lupus Osteoarthritis Fibromyalgia Surgical History History of appendectomy (~1982) History of tonsillectomy History of removal of ovarian cyst History of hysterectomy History of resection of small bowel (~2020) History of colonoscopy History of esophagogastroduodenoscopy (EGD) History of elbow surgery (~2010) Family History Father Fibromyalgia Osteoporosis Mother Stroke Social History Household Members: Family Housing: Apartment Do you presently have visiting nurse or other home services: Yes Alcohol intake: never Comment: Patient sleeping Patient Tobacco Use Status: Current everyday Tobacco user Tobacco use type: Cigarette Cigarette Packs Per Day: 1 Cigarettes Per Day: 20.0 Years Smoked: 23 e-Cigarette/Vaping Use: Never Used Second Hand Smoke Exposure: Yes service: No Current occupational status: disabled 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 Review of Systems Const All systems reviewed & are unremarkable except as noted in HPI and below Physical Exam Extrem Other: Patient is alert, oriented, and in no acute distress. Neuro: Normal sensation of the tips of all digits of the left hand at this time Vascular: Cap refill brisk Pain: Tenderness to palpation of the A1 ba of the left ring finger Pain associated with locking and catching of the left ring finger ROM: There is a visible and palpable locking and catching of the left ring finger Patient was able to flex and extend all other digits of the left hand fully and without difficulty Skin: No lacerations or abrasions. General: No ecchymosis, erythema, or evidence of infection. Psych: Appears grossly normal Affect normal Attitude cooperative Office Procedures AMB Tendon Injection Tendon Injection [id number] Tendon Sheath Injection All charges added?: Procedure code (CPT) selection complete Assessment & Plan Assessment & Plan (1) Trigger finger, left ring finger: Code(s): M65.342 - Trigger finger, left ring finger Category: Medical Plan 1. Left ring finger trigger finger The risks and benefits of a steroid injection including but not limited to risk of damage to blood vessels, nerves, tendons, infection, skin bleaching, failure to improve symptoms, increased pain, and possible need for further injections or other intervention were discussed with the patient and the patient wishes to proceed with the steroid injection. Once consent was obtained, I sterilely prepped the area over the A1 ba of the flexor tendon sheath of the left ring finger. I then injected the flexor tendon sheath with a combination of 1 mL of dexamethasone (4mg/ml), and 1% lidocaine. The patient tolerated the procedure well with no complications. If the patient continues to have locking and catching 4-6 weeks following this injection, they may call to schedule appointment to discuss alternative treatment options Follow-up prn Coding Level of Care Code Est Pt Level 3 (53700) Diagnoses Trigger finger, left ring finger M65.342 CPT Codes Tendon Injection - Tendon Injection 1: [id number] Tendon Sheath Injection ([id number])
--- OUTSIDE RECORDS SUMMARY | 2025-05-06 16:52 | XMS_ITS | Encounter Summary ---
Author Organization [employer] Address [address] [facility] 7t [place] [address] Care Team Providers Care Beamer Operator Name Role Phone Lurdes Lo MD Primary Care Provider Ahmet Lombardo PharmD Unavailable [phone] Pavan Doll RN Unavailable [phone] Nora Olivera Unavailable Reason for Visit * Reason Onset Date Comments Appointment 01/05/2023 Encounter Details Date Type Department Care Team ([facility] st Contact Info) Description 01/05/2023 Telephone [facility] [address] [place] [address] Jayashree Kellogg DDS [address] [place] [address] Appointment Social History Tobacco Use Types Packs/Day [...] documented as of this encounter Care Teams Beamer Operator Relationship Specialty Start Date End Date Lurdes Lo MD [address] [place] [address] PCP - General Family Medicine 08/09/22 Ahmet Lombardo, PharmD [address] [place] [address] Pharmacist Internal Medicine 09/03/22 Pavan Doll, EDGAR [address] [place] [address] Registered Nurse Family Medicine 04/10/25 04/12/25 Nora Olivera 04/10/25 04/12/25 Deepti Boo Rn TrainingGlost Kiln Placer 06/13/23 [facility] 03/05/24 documented as of this encounter
--- OUTSIDE RECORDS SUMMARY | 2025-05-06 16:52 | XMS_ITS | Clinical Summary ---
Author Organization [employer] Address [address] [facility] [address] [place] [address] Care Team Providers Care Sausage Cooker Name Role Phone Lurdes Lo MD Primary Care Provider [phone] Ahmet Lombardo PharmD Unavailable [phone] Allergies Active Allergy Reactions Criticality Noted Date Comments Acetaminophen Nausea And Vomiting 08/24/2023 Tramadol Unknown 04/06/2018 Other Reaction(s): NAUSEA & VOMITING Medications sennosides (Senokot) 8.6 MG tabletIndications: Other constipation Take 2 tablets (17.2 mg) by mouth if needed each day for constipation. 60 tablet 5 2 Active docusate sodium (Colace) 100 MG capsule take 2 capsule by oral route at bedtime every day as needed Active triamcinolone (Kenalog) 0.5 % ointment Apply topically every 12 (twelve) hours. 2 Active Ventolin HFA 108 (90 Base) MCG/ACT inhaler INHALE 2 PUFFS BY MOUTH EVERY 4 TO 6 HOURS NEEDED FOR WHEEZING OR SHORTNESS OF BREATH 2 Active Breo Ellipta 200-25 MCG/ACT aerosol powder INHALE 1 PUFF BY MOUTH EVERY DAY. RINSE MOUTH AFTER USING. 3 Active Incruse Ellipta 62.5 MCG/ACT aerosol powder INHALE 1 PUFF EVERY DAY AT THE SAME TIME 3 Active chlorhexidine (Peridex) 0.12 % solution Swish 15 mL morning and night for 1 minute. Spit, do not swallow. Do not eat or drink for 30 minutes following use. 473 mL 4 Active lidocaine (Lidoderm) 5 % patch APPLY 3 PATCHES EVERY DAY, MAY LEAVE ON FOR UP TO 12 HOURS 90 patch 11 04/16/2025 10:25 AM EST 4 Active fluticasone (Flonase) 50 MCG/ACT nasal spray Administer 1 spray into each nostril Once per day. 48 g 3 4 Active cholecalciferol (Vitamin D-3) 50 MCG (2000 UT) capsule Take 1 capsule (50 mcg) by mouth Once per day. 30 capsule 11 5 Active Fluticasone-Umecli din-Vilant (Trelegy Ellipta) 100-62.5-25 MCG/ACT aerosol powder Inhale 1 puff Once per day. 60 each 3 5 Active DULoxetine (Cymbalta) [address] capsule TAKE 1 CAPSULE BY MOUTH EVERY DAY. DO NOT CRUSH OR CHEW. 30 capsule 11 04/16/2025 10:25 AM EST 5 Active ondansetron ODT (Zofran-ODT) 4 MG disintegrating tabletIndications: Nausea DISSOLVE 1 TABLET ON TONGUE AND SWALLOW EVERY 6 HOURS as needed for nausea 30 tablet 11 04/29/2025 4:58 PM EST 5 Active albuterol (2.5 MG/3ML) 0.083% nebulizer solution INHALE 1 AMPULE USING A NEBULIZER EVERY 4 HOURS NEEDED FOR WHEEZING OR SHORTNESS OF BREATH. DO NOT EXCEED FOUR TIMES DAILY. 90 mL 3 04/16/2025 10:25 AM EST 5 Active omeprazole (PriLOSEC) [address] capsuleIndications :Dyspepsia TAKE 1 CAPSULE BY MOUTH EVERY DAY BEFORE BREAKFAST 90 capsule 1 5 Active montelukast (Singulair) 10 MG tablet TAKE 1 TABLET BY MOUTH EVERY MORNING 90 tablet 3 04/29/2025 4:58 PM EST 5 Active dicyclomine (Bentyl) 20 MG tablet TAKE 1 TABLET BY MOUTH UP TO FOUR TIMES DAILY NEEDED FOR GAS 120 tablet 3 04/16/2025 10:25 AM EST 5 Active amitriptyline (Elavil) 25 MG tablet TAKE 1 TABLET BY MOUTH EVERY DAY AT BEDTIME 90 tablet 3 04/29/2025 4:58 PM EST 5 Active Symbicort 160-4.5 MCG/ACT inhaler Inhale 2 [...] MORE THAN 2 WEEKS 30 tablet 3 04/29/2025 4:58 PM EST Active Diclofenac Sodium 1 % gel APPLY 2 GRAMS TOPICALLY TO AFFECTED AREA(S) ONCE OR TWICE DAILY NEEDED FOR PAIN 200 g 3 04/16/2025 10:25 AM EST Active gabapentin (Neurontin) 600 MG tablet Take 1 tablet (600 mg) by mouth 3 times daily. 90 tablet 11 04/29/2025 4:58 PM EST 5 026 Active Hospital, Clinic, or Other Facility Administered Medication [...] 12:16 PM EST): - Upcoming appointment with recreation facility attendant Assessment & Plan (09/27/2024 11:50 PM EDT): - Prescribed predniSONE (Deltasone) 20 MG tablet 09/25/24 Rheumatoid factor positive w ith cyclic citrullinated peptide (CCP) antibody negative 07/03/2024 Assessment & Plan (03/22/2025 12:16 PM EST): - Referred to recreation facility attendant. - Pt missed appointment, rescheduled appointment for 04/02/2025. Emphasized the importance of keeping appointment. - Prescribed predniSONE (Deltasone) 20 MG tablet 09/25/24 Assessment & Plan (09/27/2024 11:50 PM EDT): - Referred to recreation facility attendant. - Pt missed appointment a few weeks [...] on prednisone for COPD) - refer to recreation facility attendant in [place] since she has a difficulty going to [place] - consider pain management if she does not have Dx rheumatological disorder Assessment & Plan (09/27/2024 11:49 PM EDT): - history of CAROLIN 1:160 in 2018 - seen by recreation facility attendant. Normal ESR and CRP. Attributed to fibromyalgia - Prescribed predniSONE (Deltasone) 20 MG tablet 09/25/24 - will check lab again Assessment & Plan (07/03/2024 8:53 AM EST): - history of CAROLIN 1:160 in 2018 - seen by recreation facility attendant. Normal ESR and CRP. Attributed to fibromyalgia - will check lab again Assessment & Plan (06/02/2024 5:38 PM EST): - history of CAROLIN 1:160 in 2018 - seen by recreation facility attendant. Normal ESR and CRP. Attributed to fibromyalgia [...] (02/19/2024 6:49 PM EDT): - [place] [facility] [place], Dx tendinitis - [...] (03/22/2025 12:24 PM EST): - seen by [facility] [place] in Dec 2022 - She gave an informed consent to surgical release; she decided to continue to treat conservatively - continue conservative management for now - Patient would like to see orthopedist again Assessment & Plan (06/02/2024 5:25 PM EST): - seen by [facility] [place] in Dec 2022 - She gave an informed consent to surgical release; she decided to continue to treat conservatively - continue conservative management for now Assessment & Plan (02/19/2024 6:50 PM EDT): - seen by [facility] [place] in Dec 2022 - She gave an informed consent to surgical release; she decided to continue to treat conservatively - continue conservative management for now Assessment & Plan (04/22/2023 5:31 PM EST): - seen by [facility] [place] in Dec 2022 - She gave an informed consent to surgical release; she has not scheduled a surgery date yet. - continue conservative management for now; encouraged to schedule a follow up appt with ortho Assessment & Plan (11/26/2022 7:38 AM EDT): - refer to orthopedist Asthma with COPD (CMS/HCC) 11/25/2022 Assessment & Plan (03/22/2025 12:19 PM EST): - followed [place] [facility] [place] and lung cancer screening program, last [...] covered by her insurance. Patient was prescribed rmsnqdujez-ybwwxcxg-dhdmdlkeub (Breztri) on 12/07/24, which also requires PA - previously prescribed: fluticasone furonate / vilanterol (Breo); umeclidinium (Incruse); - continue albuterol HFA and neb prn - continue working on smoking cessation - Prescribed prednisone and antibiotic today Assessment & Plan (12/28/2024 12:14 PM EDT): - followed by [facility] [place] and [place] cancer screening program, last [...] covered by her insurance. Patient was prescribed ttfbvbbfye-wsdjswaa-wyxdlaxich (Breztri) on 12/07/24, which also requires PA - previously prescribed: fluticasone furonate / vilanterol (Breo); umeclidinium (Incruse); - continue albuterol HFA and neb prn - continue working on smoking cessation - Prescribed prednisone and antibiotic today Assessment & Plan (10/01/2024 5:46 PM EDT): - followed by [facility] [place] and lung cancer screening program, last [...] (07/03/2024 8:53 AM EST): - followed by [facility] [place] and lung cancer screening program, last [...] (06/02/2024 5:24 PM EST): - followed by [facility] [place] and lung cancer screening program, last [...] PM EDT): - followed by Dr. Olivera, [facility] [place], last seen in Apr 2023 - [...] PM EDT): - followed by Dr. Olivera, [facility] [place], last seen in Dec 2022 - [...] PM EST): - followed by Dr. Olivera, [facility] [place], last seen in Dec 2022 - [...] AM EDT): - followed by Dr. Olivera, [facility] [place], last seen in October 2022 - [...] (03/22/2025 12:13 PM EST): - followed by [facility] [place], last seen in Dec 2022 - [...] (12/28/2024 11:38 AM EDT): - followed by [facility] [place], last seen in Dec 2022 - [...] (10/01/2024 5:43 PM EDT): - followed by [facility] [place], last seen in Dec 2022 - [...] for 09/26/24 Advised to follow up with [facility] [place]. Assessment & Plan (07/03/2024 8:53 AM EST): - followed by [facility] [place], last seen in Dec 2022 - [...] nutritional supplement Advised to follow up with [facility]. Assessment & Plan (06/02/2024 5:35 PM EST): - followed by [facility] [place], last seen in Dec 2022 - [...] nutritional supplement Advised to follow up with [facility]. Assessment & Plan (02/19/2024 6:47 PM EDT): - followed by [facility] [place]ocr[place], Dr. Martini, encouraged to schedule appt. - previously on bisphosphonate, but pt discontinued due to side effects and was seen by Dr. Martini to discuss about alternative medications - work on smoking cessation - continue weight-bearing exercise - continue nutritional supplement Assessment & Plan (09/07/2023 9:54 PM EDT): - followed by [facility] [place], Dr. Martini - previously on bisphosphonate, but pt discontinued due to side effects - work on smoking cessation - continue weight-bearing exercise - continue nutritional supplement Assessment & Plan (04/22/2023 5:39 PM EST): - followed by [facility] [place], Dr. Martini - previously on bisphosphonate, but pt discontinued due to side effects - work on smoking cessation - continue weight-bearing exercise - continue nutritional supplement Assessment & Plan (11/26/2022 7:34 AM EDT): - followed [place] [facility] [place] - continue bisphosphonate - work on [...] Encounters Date Type Department Care Team Description 04/26/[address] [address] Lurdes oL MD 04/12/2025 Patient Outreach [address] [address] Lurdes Lo MD Care Coordination (CM/CHW outreach) 04/12/2025 Patient Outreach [address] [address] Lurdes Lo MD Care Coordination (CM/CHW outreach) 04/10/2025 Patient Outreach [address] [address] Lurdes Lo MD Care Management (C3CM- chart review) 04/10/2025 Patient Outreach [address] [address] Lurdes Lo MD 04/03/[address] [address] Lurdes Lo MD Care Coordination (Utilization Review of Home Care services) 03/30/2025 Orders Only GENERIC EXTERNAL DATA DEPARTMENT Provider, Generic External Data 03/22/2025 1:00 PM EST Office Visit [facility] [address] [address] Janice Yap ANP Acute head injury, initial encounter (Primary Dx); Bilateral arm pain; Fall on stairs, initial encounter; Dizziness; Nausea 03/22/2025 Orders Only [facility] External Provider, [facility] 03/22/2025 Travel 03/22/[address] [address] Lurdes Lo MD Nurse Triage 03/21/2025 11:30 AM EST Office Visit [address] [address] Lurdes Lo MD Osteoporosis without current pathological fracture, unspecified osteoporosis type (Primary Dx); Current severe episode of major depressive disorder without psychotic features, unspecified whether recurrent (CMS/HCC) ([facility]); Rheumatoid factor positive with cyclic citrullinated peptide (CCP) antibody negative; Positive CAROLIN (antinuclear antibody); Fibromyalgia; Pulmonary nodules; Asthma with COPD (CMS/HCC) ([facility]); Tobacco dependence; Smoking greater than 20 pack years; Trigger ring finger of left hand 03/21/2025 Travel 03/20/2025 Telephone [facility] [address], [place] [phone] Lurdes Lo MD chart prep 03/13/2025 Refill [facility] [address] [place] [address], [place] [phone] Lurdes Lo MD 03/07/2025 Refill [facility] [address], [place] [phone] Lurdes Lo MD 03/06/2025 Refill [facility] [address], [place] [phone] Lurdes Lo MD from Last 3 Months Immunizations Immunization Administration [...] VITAMIN D,25-OH,TOTAL,IA Routine 03/30/2025 8:58 AM EST CYCLIC CITRULLINATED PEPTIDE (CCP) AB (IGG) Routine 03/30/2025 8:58 AM EST Rheumatoid factor positive with cyclic citrullinated peptide (CCP) antibody negative Positive CAROLIN (antinuclear antibody) Polyarthralgia COMPREHENSIVE METABOLIC PANEL Routine 03/30/2025 8:[address] CERVICAL SPINE WO CONTRAST Routine 03/22/2025 3:[address] HEAD WO CONTRAST Routine 03/22/2025 3 :40 PM EST PANORAMIC RADIOGRAPHIC IMAGE Routine 10/23/2024 10:00 AM [...] Vitamin D 25-OH Total 30.9 >30 ng/mL [facility] Comment: Health Based Reference Values*< 20 ng/mL Axkwxbsuy76-30 ng/mL Insufficient> 30 ng/mL Sufficient*Maxwell BATRES. N [...] Final Result Performing Organization Address [facility] Co de Phone Number [facility] [address] [place] [phone] * TSH with Reflex to Free T4 (03/30/2025 8:58 AM EST) TSH reflex Free T4 1.42 0.32 - 4.0 uIU/mL [facility] 03/30/2025 8:58 AM EST 03/30/2025 8:58 AM EST Generic External Data Provider LAB BLOOD ORDERAB LES Final Result Performing Organization Address [facility] Co de Phone Number [facility] [address] [place] [phone] * Cyclic Citrullinated Peptide (CCP) Antibody (IgG) (03/30/2025 8:58 AM EST) Cyclic Citrullinated Peptide <16 UNITS [facility] Comment:Reference RangeNegat jhony: <20Weak Positive: 20-39Moderate Positive: 40-59Strong Positive: >59THIS TEST WAS PERFORMED AT:[facility] [address] [id number] LOWRY MD Blood Venous blood specimen / Unknown 03/30/2025 8:58 AM EST 03/30/2025 8:58 AM EST Lurdes Lo MD LAB BLOOD ORDERABLES Final Resul t Performing Organization Address [facility]/ZIP Co de Phone Number [facility] [address] [place] [phone] * (ABNORMAL) Comprehensive Metabolic Panel (03/30/2025 8:58 AM EST) Sodium 144 135 - 145 mmol/L [facility] Potassium 4.2 3.3 - 5.1 mmol/L [facility] Chloride 105 96 - 108 mmol/L [facility] Carbon Dioxide 31(H) 22 - 29 mmol/L [facility] Anion Gap 12 12 - 20 [facility] Urea Nitrogen (BUN) 10 9 - 16 mg/dL [facility] Creatinine, Serum 0.67 0.5 - 1.4 mg/dL [facility] Estimated Glomerular Filt Rate >60 [facility] Comment:Chronic Kidney Disea se: Estimated GFR < 60 mL/min/1.05t2Bpeknt Kidney Disease: Estimated GFR < 15 mL/min/1.73m2 Glucose 87 60 - 115 mg/dL [facility] Calcium 9.5 8.4 - 10.2 mg/dL [facility] Bilirubin, Total 0.4 0.0 - 1.0 mg/dL [facility] Aspartate Amino Transferase 27 5 - 31 U/L [facility] Alanine Aminotransferase 21 0 - 31 U/L [facility] Total Protein 7.1 6.5 - 8.0 g/dL [facility] Albumin Level 4.6 3.5 - 5.0 g/dL [facility] Alkaline Phosphatase 83 39 - 117 U/L [facility] Blood Venous blood specimen / Unknown 03/30/2025 8:58 AM EST 03/30/2025 8:58 AM EST us Lurdes Lo MD LAB BLOOD ORDERABLES Final Resul t Performing Organization Address [facility]/ZIP Co de Phone Number [facility] [address] [place] [phone] [phone] * CT Cervical Spine w/o Contrast (03/22/2025 3:40 PM EST) Anatomical Region Laterality Modality Spine, C-spine Computed Tomogra phy 03/22/2025 3:40 PM EST Narrative 03/22/2025 4:31 PM EST [address] [address] [address] Scan Report Signed Patient: Leda Gudino MR# : [id number] : 1965 Acct:[id number] Age/Sex: 60 / F ADM Date: 03/22/25 Loc: HO.ED Attending Dr: Ordering Physician: Linda Nunez NP Date of Service: 03/22/25 Procedure(s): CT cervical spine wo IV con Accession Number(s): [id number] cc: Lurdes Lo MD; Linda Nunez NP Report Number: [id number]: Total DLP = 214.23 mGy-cm Reason for [...] 03/22/25 1628 DD/ 1540 TD/TT: 03/22/25 1620 Service Person: ABNER Procedure Note Felishater, Image - 03/22/[address] [place] [address] [address] Scan Report Signed Patient: Leda GudinoMR# : [id number] : 1965Acct:[id number] Age/Sex: 60 / FADM Date: 03/22/25 Loc: HO.ED Attending Dr: Ordering Physician: Linda uNnez NP Date of Service: 03/22/25 Procedure(s): CT cervical spine wo IV con Accession Number(s): [id number] cc: Lurdes Lo MD; Linda Nunez NP Report Number: [id number]: Total DLP = 214.23 mGy-cm Reason for [...] 03/22/25 1628 DD/ 1540 TD/TT: 03/22/25 1620 Service Person: ABNER [facility] External Provider IMG CT PROCEDURES Final Result * CT Head w/o Contrast (03/22/2025 3:40 PM EST) Anatomical Region Laterality Modality Head, Neck Computed Tomogra phy 03/22/2025 3:40 PM EST Narrative 03/22/2025 4:29 PM EST [address] [address] [address] Scan Report Signed Patient: Leda Gudino MR# : [id number] : 1965 Acct:[id number] Age/Sex: 60 / F ADM Date: 03/22/25 Loc: .ED Attending Dr: Ordering Physician: Linda Nunez NP Date of Service: 03/22/25 Procedure(s): CT head/brain wo IV con Accession Number(s): [id number] cc: Lurdes Lo MD; Linda Nunez NP Report Number: [id number]: Total DLP = 648.13 mGy-cm Reason for [...] 03/22/25 1627 DD/ 1540 TD/TT: 03/22/25 1619 Service Person: Procedure Note Donotuseinterpreter, Image - 03/22/[address] [place] [address] [address] Scan Report Signed Patient: Leda GudinoMR# : [id number] : 1965Acct:[id number] Age/Sex: 60 / FADM Date: 03/22/25 Loc: HO.ED Attending Dr: Ordering Physician: Linda Nunez NP Date of Service: 03/22/25 Procedure(s): CT head/brain wo IV con Accession Number(s): [id number] cc: Lurdes Lo MD; Linda Nunez NP Report Number: [id number]: Total DLP = 648.13 mGy-cm Reason for [...] 03/22/25 1627 DD/ 1540 TD/TT: 03/22/25 1619 Service Person: [facility] External Provider IMG CT PROCEDURES Final Result * (ABNORMAL) Lipid Panel with Reflex to Direct LDL (07/03/2024 10:56 AM EST) Triglycerides 88 <150 mg/dL [facility] Comment:Desirable Triglyceri de: less than 150 mg/dLBorderline High Triglyceride 150-199 mg/dLHigh Triglyceride: 200-499 mg/dLVery High Triglyceride: greater than or equal to 5OO mg/dL Cholesterol 241(H) <200 mg/dL [facility] Comment:Desirable Cholestero l: less than 200 mg/dLBorderline High Cholesterol: 200-239 mg/dLHigh Cholesterol: greater than 239 mg/dL LDL Cholesterol Calculated 138(H) <100 mg/dL [facility] Comment:Desirable LDL: less than 100 mg/dLNear Optimal/Above Optimal LDL: 110- 129 mg/dLBorderline High LDL: 130-159 mg/dLHigh LDL: 160-189 mg/dLVery High LDL: greater than or equal to 190 mg/dL HDL Cholesterol 86 >40 mg/dL [facility] Comment:Desirable HDL: great er than 40 mg/dL Note: This HDL assay may give artificially low results in patients with liver disease. Blood 07/03/2024 10:5 6 AM EST 07/03/2024 11:30 AM EST Lurdes Lo MD LAB BLOOD ORDERABLES Final Resul t Performing Organization Address [facility] Co de Phone Number [facility] [address] [place] [phone] * Hepatitis C Antibody with Reflex to HCV, RNA, Quantitative, Real-Time PCR (07/03/2024 10:56 AM EST) Hepatitis C Antibody Nonreactive Nonreactive [facility] Comment:Antibodies to HCV no t detected; does not exclude early acuteHCV infection. Blood Venous blood specimen / Unknown 07/03/2024 10:56 AM EST 07/03/2024 11:30 AM EST Lurdes Lo MD LAB BLOOD ORDERABLES Final Resul t Performing Organization Address [facility] de Phone Number [facility] [address] [place] [phone] * HIV-1/2 Antigen and Antibodies, Fourth Generation, with Reflexes (07/03/2024 10:56 AM EST) HIV AB/AG Nonreactive Nonreactive [facility] Comment:HIV-1 p24 Ag and/or HIV-1/HIV-2 Ab not detected.A test result that is nonreactive does not exclude thepossibility of exposure to or infection with HIV-1 and/orHIV-2. Nonreactive results in this assay for individualswith prior exposure to HIV-1 and/or HIV-2 may be due toantigen and antibody levels that are below the limit ofdetection of this assay.The Odimax HIV Ag/Ab Combo assay result andsupplemental assay [...] Resul t Performing Organization Address [facility] Co de Phone Number [facility] [address] [place] [phone] * BI Mammogram Screening Tomosynthesis Bilateral (09/27/2023 12:26 PM EDT) Anatomical Region Laterality Modality Breast Bilateral Mammography 09/27/2023 12:2 6 PM EDT Narrative 10/28/2023 7:07 AM EDT [facility] [address] [place] [address] Mammography Report Signed Patient: Leda Gudino MR# : [id number] : 1965 Acct:[id number] Age/Sex: 58 / F ADM Date: 09/27/23 Loc: HO.MAMMO Attending Dr: Lurdes Lo MD Ordering Physician: Lurdes Lo MD Results: 1Negative Date of Service: 09/27/23 Follow Up: 1 Year From [facility] Mammogram Procedure(s): MM tomosynthesis screening BI Accession Number(s): [id number] cc: Lurdes Lo MD EXAMINATION: MM SCREENING [...] in OV> 10/28/23 0704 DD/ 1226 TD/TT: Service Person: Procedure Note Donotuseinterpreter, Image - 10/28/2023 [facility] [address] [place] [address] Mammography Report Signed Patient: Leda GudinoMR# : [id number] : 1965Acct:[id number] Age/Sex: 58 / FADM Date: 09/27/23 Loc: HO.MAMMO Attending Dr: Lurdes Lo MD Ordering Physician: Lurdes Lo MDResults: 1Negative Date of Service: 09/27/23Follow Up: 1 Year From Orig inal Mammogram Procedure(s): MM tomosynthesis screening BI Accession Number(s): [id number] cc: Lurdes Lo MD EXAMINATION: MM SCREENING [...] in OV> 10/28/23 0704 DD/ 1226 TD/TT: Service Person: Lurdes Lo MD IMG BI PROCEDURES Final Result * CT Lung Screening Low dose (04/29/2023 10:15 AM EST) Anatomical Region Laterality Modality Lung Computed Tomogra phy 04/29/2023 10:1 5 AM EST Narrative 05/13/2023 2:52 PM EST [address] [address] [address] Scan Report Signed Patient: Leda Gudino MR# : [id number] : 1965 Acct:[id number] Age/Sex: 58 / F ADM Date: 04/29/23 Loc: HO.CT Attending Dr: Maxine Matos PA-C Ordering Physician: Maxine Matos PA-C Date of Service: 04/29/23 Procedure(s): CT lung screening Accession Number(s): [id number] cc: Maxine Matos PA-C; Lurdes Lo MD [...] in OV> 05/13/23 1449 DD/ 1015 TD/TT: Service Person: Procedure Note Donotuseinterpreter, Image - 05/13/[address] [place] [address] [address] Scan Report Signed Patient: Leda GudinoMR# : [id number] : 1965Acct:[id number] Age/Sex: 58 / FADM Date: 04/29/23 Loc: HO.CT Attending Dr: Maxine Matos PA-C Ordering Physician: Maxine Matos PA-C Date of Service: 04/29/23 Procedure(s): CT lung screening Accession Number(s): [id number] cc: Maxine Matos PA-C; Lurdes Lo MD [...] in OV> 05/13/23 1449 DD/ 1015 TD/TT: Service Person: [facility] External Provider IMG CT PROCEDURES Final Result * Hm Colonoscopy (07/15/2020) Colonoscopy Normal Normal 07/15/2020 [facility] Unassigned Pcp HEALTH MAINTENANCE Edited Result - Final from Last 3 Months or Most Recently Relevant to Health Maintenance Insurance Care Teams Sausage Cooker Relationship Specialty Start Date End Date Lurdes Lo MD [address] [place], [place] [phone] PCP - General Family Medicine 08/09/22 Ahmet Lombardo, Ladonna [address] [place], [place] [phone] Pharmacist Internal Medicine 09/03/[address] TesterManager Office 06/13/23 Home Care [facility] 03/05/24
--- OUTSIDE RECORDS SUMMARY | 2025-05-06 16:52 | XMS_ITS | Encounter Summary ---
Author Organization [employer] Address 75 [facility] 7t [place] [address] Care Team Providers Care Csr Technician Name Role Phone Lurdes Lo MD Primary Care Provider [phone] Ahmet Lombardo PharmD Unavailable [phone] Pavan Doll RN Unavailable [phone] Nora Olivera Unavailable Reason for Visit * Reason Onset Date Comments Appointment 03/08/2023 Encounter Details Date Type Department Care Team ([facility] st Contact Info) Description 03/08/2023 Telephone [facility] [address] [place], [place] [phone] Jayashree Kellogg, REGINALDS [address] [place], [place] [phone] Appointment Social History Tobacco Use Types Packs/Day [...] documented as of this encounter Care Teams Csr Technician Relationship Specialty Start Date End Date Lurdes Lo MD [address] [place] [address] PCP - General Family Medicine 08/09/22 Ahmet Lombardo, Ladonna [address] [place] [address] Pharmacist Internal Medicine 09/03/22 Pavan Doll, EDGAR [address] [place] [address] Registered Nurse Family Medicine 04/10/25 04/12/25 Nora Olivera 04/10/25 04/12/25 Deepti Boo Scientific SpecialistSlitter And Rewinder 06/13/23 Home Care [facility] 03/05/24 documented as of this encounter
--- OUTSIDE RECORDS SUMMARY | 2025-05-06 16:52 | XMS_ITS | Encounter Summary ---
Author Organization [employer] Address 75 [facility] 7t [place] [address] Care Team Providers Care Volunteer Services Supervisor Name Role Phone Lurdes Lo MD Primary Care Provider [phone] Ahmet Lombardo PharmD Unavailable [phone] Pavan Doll RN Unavailable [phone] Nora Olivera Unavailable Reason for Referral * Consultation (Routine) - Canceled Specialty Diagnoses / Procedures Referred By Paulette bynum Referred To Contact Rheumatology Diagnoses Polyarthralgia Rheumatoid factor positive with cyclic citrullinated peptide (CCP) antibody negative Surinder Martinez MD [address] [place] [address] Phone: tel: fax: Referral ID Status Reason Start Date Expiration Date Visits Requested Visits Authorized [id number] Canceled Specialty Services Required 08/21/2024 08/21/2025 1 1 Encounter Details Date Type Department Care Team (Late st Contact Info) Description 08/21/2024 Orders Only [facility] [address] [place], [place] [phone] Surinder Martinez MD [address] [place], [place] [phone] Polyarthralgia (Primary Dx); Rheumatoid factor positive with [...] documented as of this encounter Care Teams Volunteer Services Supervisor Relationship Specialty Start Date End Date Lurdes Lo MD [address] [place] [address] PCP - General Family Medicine 08/09/22 Ahmet Lombardo, StellaD [address] [place] [address] Pharmacist Internal Medicine 09/03/22 Pavan Doll, EDGAR [address] [place] [address] Registered Nurse Family Medicine 04/10/25 04/12/25 Nora Olivera 04/10/25 04/12/25 Deepti Boo Pick Up And Delivery DriverSenior Business Process Analyst 06/13/23 Home Care [facility] 03/05/24 documented as of this encounter
--- OUTSIDE RECORDS SUMMARY | 2025-05-06 16:52 | XMS_ITS | Encounter Summary ---
Author Organization [employer] Address 75 [facility] 7t [place] [address] Care Team Providers Care Legal Administrative Assistant Name Role Phone Lurdes Lo MD Primary Care Provider Ahmet Lombardo PharmD Unavailable [phone] Pavan Doll RN Unavailable [phone] Nora Olivera Unavailable Reason for Referral * Consultation (Urgent) - Closed Specialty Diagnoses / Procedures Referred By Controlly t Referred To Contact Diagnoses Asthma-COPD overlap syndrome (CMS/HCC) (HCC) Tobacco dependence Lurdes Lo MD [address] [place] [address] Phone: tel: fax: [address] [address] Phone: tel: fax: Referral ID Status Reason Start Date Expiration Date V isits Requested Visits Authorized [id number] Closed Specialty Services Required 07/23/2024 07/23/2025 1 1 Encounter Details Date Type Department Care Team (Late st Contact Info) Description 07/23/2024 Orders Only [facility] [address] [place] [address] [phone] Lurdes Lo MD [address] [place] [address] [phone] Asthma-COPD overlap syndrome (CMS/HCC) (Primary Dx); Tobacco [...] your housing situation today? I have ramses kolby 02/21/[address] you li [...] tobacco (cigarettes, smokeless, etc) Tobacco Use No Lombardo, Ahmet, PharmD documented as of this encounter Visit Diagnoses Diagnosis Asthma-COPD overlap syndrome (CMS/HCC) (HCC)- Primary Tobacco dependence Tobacco use disorder documented in this encounter Additional Health Concerns Assessment Noted Time PHQ-9 Depression Total Score: 8 02/13/20 24 11:13 AM EDT documented as of this encounter Care Teams Legal Administrative Assistant Relationship Specialty Start Date End Date Lurdes Lo MD [address] [place] [address] PCP - General Family Medicine 08/09/22 Ahmet Lombardo, PharmD [address] [place] [address] Pharmacist Internal Medicine 09/03/22 Pavan Doll RN [address] [place] [address] Registered Nurse Family Medicine 04/10/25 04/12/25 Nora Olivera 04/10/25 04/12/25 Deepti Boo Business And Services InstructorDatabase Software Technician 06/13/23 Home Care [facility] 03/05/24 documented as of this encounter
--- OUTSIDE RECORDS SUMMARY | 2025-05-06 16:52 | XMS_ITS | Encounter Summary ---
Author Organization [employer] Address 75 [facility] 7t [place] [address] Care Team Providers Care Supervisor Special Services Name Role Phone Lurdes Lo MD Primary Care Provider [phone] Ahmet Lombardo PharmD Unavailable [phone] Pavan Doll RN Unavailable [phone] Nora Olivera Unavailable Reason for Visit * Reason Comments Med Refill Encounter Details Date Type Department Care Team ([facility] st Contact Info) Description 02/21/2023 Refill [facility] [address] [place], [place] 1987140 [facility] [address] [place], [place] [phone] Social History Tobacco Use Types Packs/Day Years [...] as of this encounter Care Teams Supervisor Special Services Relationship Specialty Start Date End Date Lurdes Lo MD [address] [place] [address] PCP - General Family Medicine 08/09/22 Ahmet Lombardo, PharmD [address] [place] [address] Pharmacist Internal Medicine 09/03/22 Pavan Doll, EDGAR [address] [place] [address] Registered Nurse Family Medicine 04/10/25 04/12/25 Nora Olivera 04/10/25 04/12/25 Deepti Boo Lumber PullerEbay Reseller 06/13/23 Home Care [facility] 03/05/24 documented as of this encounter
--- OUTSIDE RECORDS SUMMARY | 2025-05-06 16:52 | XMS_ITS | Encounter Summary ---
Author Organization [employer] Address 75 [facility] 7t [place] [address] Care Team Providers Care Marketing Business Analyst Name Role Phone Lurdes Lo MD Primary Care Provider [phone] Ahmet Lombardo PharmD Unavailable [phone] Pavan Doll RN Unavailable [phone] Nora Olivera Unavailable Encounter Details Date Type Department Care Team (Late st Contact Info) Description 08/29/2024 Orders Only [facility] [address] [place], [place] [phone] Lurdes Lo MD [address] [place], [place] [phone] Rheumatoid factor positive with cyclic citrullinated peptide [...] documented as of this encounter Care Teams Marketing Business Analyst Relationship Specialty Start Date End Date Lurdes Lo MD [address] [place] [address] PCP - General Family Medicine 08/09/22 Ahmet Lombardo, PharmD [address] [place] [address] Pharmacist Internal Medicine 09/03/22 Pavan Doll RN [address] [place] [address] Registered Nurse Family Medicine 04/10/25 04/12/25 Nora Olivera 04/10/25 04/12/25 Deepti Boo Chief Creative OfficerHeavy Equipment Diesel Mechanic 06/13/23 Home Care [facility] 03/05/24 documented as of this encounter
--- OUTSIDE RECORDS SUMMARY | 2025-05-06 16:52 | XMS_ITS | Encounter Summary ---
Author Organization [employer] Address 75 [facility] 7t [place] [address] Care Team Providers Care Ski Patroller Name Role Phone Lurdes Lo MD Primary Care Provider [phone] Ahmet Lombardo PharmD Unavailable [phone] Pavan Doll RN Unavailable [phone] Nora Olivera Unavailable Reason for Visit * Reason Comments Med Refill Encounter Details Date Type Department Care Team (Late st Contact Info) Description 12/01/2023 Refill [facility] [address] [place], [place] [phone] Lurdes Lo MD [address] [place], [place] [phone] Paresthesia of lower extremity Social History Tobacco [...] documented as of this encounter Care Teams Ski Patroller Relationship Specialty Start Date End Date Lurdes Lo MD [address] [place] [address] PCP - General Family Medicine 08/09/22 Ahmet Lombardo, PharmD [address] [place] [address] Pharmacist Internal Medicine 09/03/22 Pavan Doll, EDGAR [address] [place] [address] Registered Nurse Family Medicine 04/10/25 04/12/25 Nora Olivera 04/10/25 04/12/25 Deepti Boo Medical Billing And Coding SpecialistMetal Buggy Operator 06/13/23 Home Care [facility] 03/05/24 documented as of this encounter
--- OUTSIDE RECORDS SUMMARY | 2025-05-06 16:52 | XMS_ITS | Encounter Summary ---
Author Organization [employer] Address 75 [facility] 7t [place] [address] Care Team Providers Care Almond Huller Name Role Phone Lurdes Lo MD Primary Care Provider [phone] Ahmet Lombardo PharmD Unavailable [phone] Pavan Doll RN Unavailable [phone] Nora Olivera Unavailable Reason for Referral * Neurology (Routine) - Closed Specialty Diagnoses / Procedures Referred By Paulette t Referred To Contact Diagnoses Polyarthralgia Procedures Nerve conduction test Makayla Knott MD [address] [place] [address] Phone: tel: fax: [address] [address] Phone: tel: fax: Referral ID Status Reason Start Date Expiration Date Visits Re quested Visits Authorized [id number] Closed 10/16/2024 10/16/2025 1 1 Encounter Details Date Type Department Care Team (Late st Contact Info) Description 10/16/2024 Orders Only [facility] [address] [place] [address] Makayla Knott MD [address] [place] [address] Polyarthralgia (Primary Dx) Social History Tobacco Use [...] documented as of this encounter Care Teams Almond Huller Relationship Specialty Start Date End Date Lurdes Lo MD [address] [place] [address] PCP - General Family Medicine 08/09/22 Ahmet Lombardo, StellaD [address] [place] [address] Pharmacist Internal Medicine 09/03/22 Pavan Doll, EDGAR [address] [place] [address] Registered Nurse Family Medicine 04/10/25 04/12/25 Nora Olivera 04/10/25 04/12/25 Deepti Boo Plastic MolderStraightedge Machine Operator Helper 06/13/23 Home Care [facility] 03/05/24 documented as of this encounter
--- OUTSIDE RECORDS SUMMARY | 2025-05-06 16:52 | XMS_ITS | Encounter Summary ---
Author Organization [employer] Address 75 [facility] 7t [place] [address] Care Team Providers Care Lock Installer Name Role Phone Maria Elena Davis CLOCK ASSEMBLER Primary Care Provider [phone] Lurdes Lo MD Primary Care Provider [phone] Ahmet Lombardo PharmD Unavailable [phone] Pavan Doll RN Unavailable [phone] Nora Olivera Unavailable Encounter Details Date Type Department Care Team (Latest Contact Info) Description 02/09/2022 Abstract [facility] CONVERSIONS Dental, Provider, DDS Social History [...] on filedocumented in this encounter Care Teams Lock Installer Relationship Specialty Start Date End Date Maria Elena DavisRODDY [address] [place] [address] PCP - General Family Medicine 12/31/21 08/08/22 Lurdes Lo MD [address] [place], [place] [phone] PCP - General Family Medicine 08/09/22 Ahmet Lombardo StellaD [address] [place] [address] Pharmacist Internal Medicine 09/03/22 Pavan Doll, RN [address] [place] [address] Registered Nurse Family Medicine 04/10/25 04/12/25 Nora Olivera 04/10/25 04/12/25 Deepti Boo Forest Fire Specialist SupervisorResearch Methods Instructor 06/13/23 Home Care [facility] 03/05/24 documented as of this encounter
--- OUTSIDE RECORDS SUMMARY | 2025-05-06 16:52 | XMS_ITS | Encounter Summary ---
Author Organization [employer] Address 75 [facility] 7t [place] [address] Care Team Providers Care Prospecting Driller Helper Name Role Phone Lurdes Lo MD Primary Care Provider [phone] Ahmet Lombardo PharmD Unavailable [phone] Pavan Doll RN Unavailable [phone] Nora Olivera Unavailable Encounter Details Date Type Department Care Team (Late st Contact Info) Description 11/01/2022 Abstract [facility] [address] [place] [address] Altamirano-Jayashree Lugo, DDS [address] [place], [place] [phone] Social History Tobacco Use Types Packs/Day Years [...] on filedocumented in this encounter Care Teams Prospecting Driller Helper Relationship Specialty Start Date End Date Lurdes Lo MD [address] [place] [address] PCP - General Family Medicine 08/09/22 Ahmet Lombardo, PharmD [address] [place] [address] Pharmacist Internal Medicine 09/03/22 Pavan Doll RN [address] [place] [address] Registered Nurse Family Medicine 04/10/25 04/12/25 Nora Olivera 04/10/25 04/12/25 Deepti Boo Physician UnderwriterWarp Tying Machine Tender 06/13/23 Home Care [facility] 03/05/24 documented as of this encounter
--- OUTSIDE RECORDS SUMMARY | 2025-05-06 16:52 | XMS_ITS | Encounter Summary ---
Author Organization [employer] Address 75 [facility] 7t [place] [address] Care Team Providers Care Speech Therapy Teacher Name Role Phone Lurdes Lo MD Primary Care Provider [phone] Ahmet Lombardo PharmD Unavailable [phone] Pavan Doll RN Unavailable [phone] Nora Olivera Unavailable Reason for Referral * Consultation (Routine) - Closed Specialty Diagnoses / Procedures Referred By Paulette bynum Referred To Contact Rheumatology Diagnoses Polyarthralgia Elevated antinuclear antibody (CAROLIN) level Rheumatoid factor positive with cyclic citrullinated peptide (CCP) antibody negative Lurdes Lo MD [address] [place] [address] Phone: tel: fax: [facility] [address] [place] [address] Phone: tel: fax: Referral ID Status Reason Start Date Expiration Date V isits Requested Visits Authorized [id number] Closed Specialty Services Required 06/07/2024 06/07/2025 12 12 Encounter Details Date Type Department Care Team (Late st Contact Info) Description 06/07/2024 Orders Only [facility] [address] [place], [place] [phone] Lurdes Lo MD [address] [place], [place] [phone] Polyarthralgia (Primary Dx); Elevated antinuclear antibody (CAROLIN) [...] PM EST Narrative 06/12/2024 5:01 PM EST [place] [address] CT Scan Report Signed with Addenda Patient: Leda Gudino MR# : [id number] : 1965 Acct:[id number] Age/Sex: 59 / F ADM Date: 06/12/24 Loc: [facility] 476-[address]: Sameer Diamond MD Ordering Physician: Augustin Urbina MD Date of Service: 06/12/24 Procedure(s): CT chest wo IV con Accession Number(s): [id number] cc: Augustin Urbina MD; Lurdes Lo MD Report Number: [id number]: Total DLP = 149.00 mGy-cm ADDENDUM ADDENDUM [...] iterative reconstruction technique DLP: 149 mGy/cm. FINDINGS: FILTER WORKER: Hyperinflated lungs. LUNGS: There is mild centrilobular [...] Quezada MD in OV> 06/12/24 1658 DD/ 05 TD/TT: 06/12/241619 Management Psychologist: [facility] Procedure Note Donotuseinterpreter, Image - 10/03/[address] [address] [address] Scan Report Signed with Addenda Patient: Leda GudinoMR# : [id number] : 1965Acct:[id number] Age/Sex: 59 / FADM Date: 06/12/24 Loc: [facility] 476-[address]: Sameer Diamond MD Ordering Physician: Augustin Urbina MD Date of Service: 06/12/24 Procedure(s): CT chest wo IV con Accession Number(s): [id number] cc: Augustin Urbina MD; Lurdes Lo MD Report Number: [id number]: Total DLP = 149.00 mGy-cm ADDENDUM ADDENDUM [...] iterative reconstruction technique DLP: 149 mGy/cm. FINDINGS: FILTER WORKER: Hyperinflated lungs. LUNGS: There is mild centrilobular [...] 06/12/24 1658 DD/ 1606 TD/TT: 06/12/24 1620 Management Psychologist: ESTRELLA [facility] External Provider IMG CT PROCEDURES Edited [...] documented as of this encounter Care Teams Speech Therapy Teacher Relationship Specialty Start Date End Date Lurdes Lo MD [address] [place], [place] [phone] PCP - General Family Medicine 08/09/22 Ahmet Lombardo PharmD [address] [place], [place] [phone] Pharmacist Internal Medicine 09/03/22 Pavan Doll, EDGAR [address] [place] [address] Registered Nurse Family Medicine 04/10/25 04/12/25 Nora Olivera 04/10/25 04/12/25 Deepti Boo Pit RecorderPhysician Industrial 06/13/23 Home Care [facility] 03/05/24 documented as of this encounter
--- OUTSIDE RECORDS SUMMARY | 2025-05-06 16:52 | XMS_ITS | Encounter Summary ---
Author Organization [employer] Address 75 [facility] 7t [place] [address] Care Team Providers Care Correctional Counselor Name Role Phone Lurdes Lo MD Primary Care Provider [phone] Ahmet Lombardo PharmD Unavailable [phone] Pavan Doll RN Unavailable [phone] Nora Olivera Unavailable Reason for Referral * Consultation (Routine) - Closed Specialty Diagnoses / Procedures Referred By Contac t Referred To Contact Rheumatology Diagnoses Rheumatoid factor positive with cyclic citrullinated peptide (CCP) antibody negative Polyarthralgia Positive CAROLIN (antinuclear antibody) Lurdes Lo MD [address] [place] [address] Phone: tel: fax: [facility] [address] [place] [address] Phone: tel: fax: Referral ID Status Reason Start Date Expiration Date V isits Requested Visits Authorized [id number] Closed Specialty Services Required 06/07/2024 06/07/2025 12 12 Encounter Details Date Type Department Care Team (Late st Contact Info) Description 09/19/2024 Orders Only [facility] [address] [place], [place] [phone] Lurdes Lo MD [address] [place], [place] [phone] Rheumatoid factor positive with cyclic citrullinated peptide [...] tobacco (cigarettes, smokeless, etc) Tobacco Use No hAmet Lombardo, PharmD documented as of this encounter [...] documented as of this encounter Care Teams Correctional Counselor Relationship Specialty Start Date End Date Lurdes Lo MD [address] [place] [address] PCP - General Family Medicine 08/09/22 Ahmet Lombardo, PharmD [address] [place] [address] Pharmacist Internal Medicine 09/03/22 Pavan Doll, EDGAR [address] [place] [address] Registered Nurse Family Medicine 04/10/25 04/12/25 Nora Olivera 04/10/25 04/12/25 Deepti Boo Office Chair AssemblerBranch Account Executive 06/13/23 Home Care [facility] 03/05/24 documented as of this encounter
--- OUTSIDE RECORDS SUMMARY | 2025-05-06 16:52 | XMS_ITS | Clinical Summary ---
Author Organization [facility] ity Address [address] [place] [address] Care Team Providers Care Supervisor Counseling And Guidance Name Role Phone Unavailable Primary Care Provider [...]
== END 2025-05-06 15:47 | disposition home or self-care (01) ==
LOC: HO.HOS 14:31
PROVIDERS: PCP Family Medicine
DX: M65.342 Trigger finger, left ring finger (principal)
CPT/HCPCS: 20550; 99213

== ENCOUNTER 2025-05-06 14:31 | Outpatient (REF) | payer MEDICAID, SELFPAY ==
--- NOTE | ~2025-05-06 | XR_ITS ---
EXAMINATION: Bilateral hands. CLINICAL INDICATION: Bilateral hand pain. COMPARISON: Left hand 04/20/2018. TECHNIQUE: 3 views each hand. FINDINGS: Left hand: There is minimal loss of PIP and DIP joint space without erosive changes. There is minimal dorsal spurring DIP joint fifth digit. No acute fracture, dislocation or lytic process seen. The soft tissues are normal. The soft tissues are normal. Right hand: There is mild loss of PIP and DIP joint space without erosive changes. There is minimal dorsal spurring DIP joint fifth digit. No visible acute fracture, dislocation or subluxation seen. The soft tissues are normal. XR/XR Knee Sina 1or 2V IMPRESSION: Mild loss of PIP and DIP joint space both hands with mild dorsal spurring of DIP joint of both hands suggestive of osteoarthritic changes. No acute fracture or dislocation seen. Electronically signed by: Cirilo Quezada MD 05/07/2025 08:10 AM [facility]
--- NOTE | ~2025-05-06 | XR_ITS ---
EXAMINATION: Bilateral hands. CLINICAL INDICATION: Bilateral hand pain. COMPARISON: Left hand 04/20/2018. TECHNIQUE: 3 views each hand. FINDINGS: Left hand: There is minimal loss of PIP and DIP joint space without erosive changes. There is minimal dorsal spurring DIP joint fifth digit. No acute fracture, dislocation or lytic process seen. The soft tissues are normal. The soft tissues are normal. Right hand: There is mild loss of PIP and DIP joint space without erosive changes. There is minimal dorsal spurring DIP joint fifth digit. No visible acute fracture, dislocation or subluxation seen. The soft tissues are normal. XR/XR Hand Bilat min 3v IMPRESSION: Mild loss of PIP and DIP joint space both hands with mild dorsal spurring of DIP joint of both hands suggestive of osteoarthritic changes. No acute fracture or dislocation seen. Electronically signed by: Cirilo Quezada MD 05/07/2025 08:10 AM [facility]
[2025-05-06 17:49] LABS: Appearance Urine Clear; Glucose Urine UA Negative (Negative); PH 7.5 (5.0-9.0); Specific Gravity - Urine 1.010 (1.005-1.025); UMIC TRIGGER UACC YES
[2025-05-06 17:52] LABS: UACC Culture Trigger YES
[2025-05-06 18:56] LABS: Total Protein Urine Random < 7 mg/dL (<12)
[2025-05-07 21:18] LABS: Antibody to SS-A Antigen <1.0 NEG AI (<1.0 NEG); Antibody to SS-B Antigen <1.0 NEG AI (<1.0 NEG); SM/Ribonucleoprotein Ab <1.0 NEG AI (<1.0 NEG); Smith Protein <1.0 NEG AI (<1.0 NEG)
[2025-05-09 09:03] LABS: DNAds, Crithidia Antibody Negative (Negative)
[2025-05-12 07:24] LABS: Centromere Protein A Ab <11 SI (<11); Centromere Protein B Ab <11 SI (<11); Fibrillarin Ab 12 SI (<11); PM SCL 100 Ab <11 SI (<11); PM SCL 75 Ab <11 SI (<11); RNA Polymerase III RP11 Ab <11 SI (<11); RNA Polymerase III RP155 Ab <11 SI (<11); SCL-70 Extractable Nuclear Ab <11 SI (<11); Th-To Ab <11 SI (<11); U1 SNRNP RNP 70KD <11 SI (<11); U1 SNRNP RNP A <11 SI (<11); U1 SNRNP RNP C <11 SI (<11)
== END 2025-05-06 14:32 | disposition home or self-care (01) ==
LOC: HO.XRAY 14:31
PROVIDERS: PCP Family Medicine; Visit Provider Student in an Organized Health Care Education/Training Program
DX: M65.342 Trigger finger, left ring finger (principal); M25.551 Pain in right hip; M25.541 Pain in joints of right hand; M81.0 Age-related osteoporosis without current pathological fracture; M79.7 Fibromyalgia; R76.0 Raised antibody titer; R76.89 Other specified abnormal immunological findings in serum; Z01.84 Encounter for antibody response examination
CPT/HCPCS: 20550; 36415; 73130; 73560; 81001; 82570; 84156; 84182; 86140; 86160; 86225; 86235; 86255; 87086; 99212; J1100; J2003

== ENCOUNTER 2025-05-06 15:13 | Outpatient (AMB) | payer MEDICAID, SELFPAY ==
--- NOTE | 2025-05-06 15:15 | MHC.OFFVIS ---
Vital Signs 05/06/25 15:18 Height 5 ft 3 in Weight 118 lb BMI 20.9 BP 129/63 Blood Pressure Location Lt brachial Position Sitting Respiration 16 Pulse 75 Pulse Source Pulse Oximeter Pulse Oximetry (%) 96 Oxygen Delivery Method Room Air Intake Visit Reasons: Fibromyalgia Pack Mule Worker Required: Yes Pack Mule Worker Language: As400 Consultant Name: Shun [id number] Information Interpreted: non-clinical & clinical Accompanied by: Self / Same As Patient Allergies acetaminophen (From Tylenol) Allergy (Unknown, Verified 05/06/25 15:20) Nausea and Vomiting tramadol (TRAMADOL) Allergy (Unknown, Verified 05/06/25 15:20) NAUSEA & VOMITING HPI Comments Details: The patient is a 60 year old female presenting for pain management consultation for fibromyalgia and new-onset right hip pain. She has a history of fibromyalgia causing diffuse pain throughout her body, which she describes as feeling like it is in all her bones. She reports feeling very depressed due to the chronic pain. About one month ago, she developed a new, severe right hip pain. She describes the pain as a horrible, burning sensation that radiates to her right groin and leg, which is particularly severe when she lies down, forcing her to get up. The pain is also significant in the mornings and with ambulation. Her medication regimen includes ibuprofen, gabapentin, amitriptyline, duloxetine, and lidocaine patches, which provide some relief but do not fully resolve the pain. She has a history of shoulder pain evaluated by Orthopedics a year ago, for which she received physical therapy and about three injections. She previously had home physical therapy but was discharged because it worsened her pain. Relevant past medical history includes osteoporosis, with a repeat bone scan scheduled for June 2025. She also sustained a fall in March, which prompted an emergency room visit, but she denies significant neck or back pain resulting from the incident. Pain Description - Onset: Right hip pain began about one month ago. - Location: Pain is primarily in the right hip, with radiation down the leg. - Quality: Described as a horrible, sharp, aching, dull, throbbing, tightness, cramping, burning sensation. - Severity: Severe and unbearable. - Exacerbating Factors: Pain is worse when lying down and in the mornings with ambulation. - Relieving Factors: Patient gets up from a lying position and applies lidocaine patches for relief. - Associated Symptoms: Patient also reports widespread body and bone pain consistent with fibromyalgia. Pain Management - Affect: Patient reports feeling very depressed due to the fibromyalgia pain. - Analgesia: She is currently taking ibuprofen, gabapentin, amitriptyline, and duloxetine, which provide some pain relief but do not take it away. - Activities of Daily Living: The right hip pain interferes with her sleep, as it is most severe when she lies down. - Aberrant Drug-Related Behaviors: Admits to sometimes taking two gabapentin at a time due to severe pain. - Adverse Effects: Reports that past physical therapy worsened her pain. [facility] Medical History (Updated 05/06/25 @ 15:30 by RODDY Alexis) Tobacco dependence Asthma-COPD overlap syndrome Emphysema lung Premature menopause History of Helicobacter pylori infection Nicotine dependence, cigarettes, uncomplicated Allergies Asthma Constipation Moderate malnutrition Pulmonary nodules Colitis Acid reflux Vitamin D deficiency Osteoporosis (~2017) Migraines Lupus Osteoarthritis Fibromyalgia Surgical History History of appendectomy (~1982) History of tonsillectomy History of removal of ovarian cyst History of hysterectomy History of resection of small bowel (~2020) History of colonoscopy History of esophagogastroduodenoscopy (EGD) History of elbow surgery (~2010) Family History Father Fibromyalgia Osteoporosis Mother Stroke Social History Household Members: Family Housing: Apartment Do you presently have visiting nurse or other home services: Yes Alcohol intake: never Comment: Patient sleeping Patient Tobacco Use Status: Current everyday Tobacco user Tobacco use type: Cigarette Cigarette Packs Per Day: 1 Cigarettes Per Day: 20.0 Years Smoked: 23 e-Cigarette/Vaping Use: Never Used Second Hand Smoke Exposure: Yes service: No Current occupational status: disabled 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 Review of Systems Narrative - Musculoskeletal: Reports multiple joint pain and widespread pain in her bones, consistent with fibromyalgia. - Reports right hip pain for the past month, described as a burning sensation radiating to the leg. - Reports history of shoulder pain. - Denies significant neck or back pain. - Psychiatric: Reports feeling very depressed due to chronic pain. Const All systems reviewed & are unremarkable except as noted in HPI and below Physical Exam Vital Signs: Last Vital Signs Pulse 75 05/06/25 15:18 Resp 16 05/06/25 15:18 BP 129/63 05/06/25 15:18 Pulse Ox 96 05/06/25 15:18 Oxygen Delivery Method Room Air 05/06/25 15:18 BMI result Body Mass Index 20.9 General: Appears afebrile. Alert and oriented. Mood and affect appropriate. Follows and participates in conversation appropriately. Respiratory effort is unlabored. No cough. Able to transition from sit to stand unassisted. Ambulates with bilaterally normal heel strike and toe off. General: Yes no CVA tenderness Back/Spine/Pelvis Other: - Musculoskeletal: Examination reveals symmetrical multiple tender points consistent with fibromyalgia. - Right Hip: Positive FADIR, Stinchfield, Pelvic compression and Harlan's tests on the right, with pain localized to the groin and hip area during maneuvers. Bilateral lower extremities are of equal length. Back: no CVA tenderness Cervical Spine: cervical ROM normal, cervical muscular tenderness, pain with cervical ROM, cervical spasm and No Cervical spine tenderness Thoracic/Lumbar Spine: thoracic and lumbar spine normal to inspection, No Thoracic/lumbar spine scar(s), Lasegue's sign negative, straight leg raise negative bilaterally, pain with thoraco-lumbar ROM, paraspinal muscle tenderness bilaterally, thoraco-lumbar ROM limited, No thoracic spinal tenderness and No lumbar spinal tenderness Sacroiliac joints: bilaterally tender to palpation Extrem General: Yes capillary refill normal, Yes no clubbing, cyanosis or edema and Yes no calf tenderness Results Reviewed Results Reviewed: CT cervical spine wo IV con 03/22/25 Reason for Exam: fall down stairs, neck pain EXAMINATION: CT CERVICAL SPINE WITHOUT CONTRAST CLINICAL INFORMATION: Fall, pain. COMPARISON: None available. TECHNIQUE: Axial imaging. Sagittal and coronal reconstructions. This CT examination was performed using dose optimization techniques as appropriate, variously including the following: *Automated exposure control *Adjustment of mA and/or kV according to patient size (this includes techniques or standardized protocols for targeted exams where dose is matched to indication/reason for exam; i.e. extremities or head) *Use of iterative reconstruction technique FINDINGS: Craniocervical and atlantoaxial articular ration is maintained. Predens space is maintained. Straightening of the cervical curvature. Vertebral body heights are maintained. No evidence of acute fracture or traumatic subluxation. Vertebral body heights are maintained. Disc spaces are maintained. The central bony canal is maintained. No suspicious bony lesions. No prevertebral soft tissue swelling. No suspicious thyroid findings. Biapical pleural parenchymal scarring. IMPRESSION: No CT evidence of acute fracture or traumatic subluxation. DEXA appendicular skeleton 07/24/21 Osteoporosis based on the lowest T-score value of -3.3 in the lumbar spine applying World Health Organization criteria. Assessment & Plan Assessment & Plan (1) Osteoporosis: Onset Date: ~2017 Comment: (Bone Dexa Lumbar T-score: -2.7 on 04/25/18; -3.3 on 07/24/21) Code(s): M81.0 - Age-related osteoporosis without current pathological fracture Category: Medical Qualifiers: Osteoporosis type: unspecified Presence of current pathological fracture: unspecified Qualified Code(s): M81.0 - Age-related osteoporosis without current pathological fracture (2) Polyarthralgia: Code(s): M25.50 - Pain in unspecified joint Category: Medical (3) Fibromyalgia: Code(s): M79.7 - Fibromyalgia Category: Medical (4) Right hip pain: Code(s): M25.551 - Pain in right hip Category: Medical Plan To further evaluate her new-onset right hip pain, an X-ray of the right hip and pelvis will be ordered to rule out fracture or dislocation. A referral for physical therapy will be placed as an initial step in management. The patient will continue her current medication regimen for fibromyalgia, which includes gabapentin, amitriptyline, duloxetine, and Ibuprofen. She was educated on non-pharmacologic management for fibromyalgia, including the importance of regular physical activity and home exercise, adequate hydration, sleep hygiene ensuring adequate sleep , maintaining good posture, consuming a well-balanced diet and consider Cognitive Behavioral Therapy (CBT) for fibromyalgia and chronic pain syndrome. Regarding right hip pain, a cortisone injection will be considered pending x-ray findings; however, this is contraindicated if her upcoming bone scan confirms ongoing osteoporosis, as cortisone can worsen the condition and increase her fracture risk. We also discussed Orthopedic evaluation. All questions and concerns have been answered and patient agreed with the treatment plan. Follow up for xray results/PT and sooner as needed. Patient was informed and verbally consented to the use of an ambient scribe for clinic note documentation during this visit. Orders: Orders XR hip LT w PEL1V 05/06/25 M25.551 - Pain in right hip, M81.0 - Age-related osteoporosis without current pathological fracture PT Evaluation and Treatment 05/06/25 M25.50 - Pain in unspecified joint, M25.551 - Pain in right hip, M79.7 - Fibromyalgia Coding Level of Care Code New Pt Level 4 (08123) Diagnoses Osteoporosis, unspecified osteoporosis type, unspecified pathological fracture presence M81.0 Osteoporosis type: unspecified Presence of current pathological fracture: unspecified Polyarthralgia M25.50 Fibromyalgia M79.7 Right hip pain M25.551
[2025-05-06 15:18] VITALS: BP 129/63; PULSE 75; RESP 16; O2SAT 96; BMI 20.9
== END 2025-05-06 15:44 | disposition home or self-care (01) ==
LOC: HO.PMC 15:14
PROVIDERS: PCP Family Medicine; Visit Provider Nurse Practitioner Family
DX: M81.0 Age-related osteoporosis without current pathological fracture (principal); M25.50 Pain in unspecified joint; M79.7 Fibromyalgia; M25.551 Pain in right hip
CPT/HCPCS: 99204

== ENCOUNTER → 2025-05-06 16:19 | Outpatient (BNV) | payer MEDICAID, SELFPAY | PROVIDERS: PCP Family Medicine; Visit Provider Radiology Diagnostic Radiology | DX: M19.041 Primary osteoarthritis, right hand (principal); M19.042 Primary osteoarthritis, left hand; R76.89 Other specified abnormal immunological findings in serum | CPT/HCPCS: 73130; 73560 ==